=== PATIENT | female | born 1960 | race Caucasian/White ===

== ENCOUNTER → 2016-08-13 | Outpatient (CLI) | payer OTHER ==
[~2016-08-13] MED LIST: ALBU1AER9 INH; ATOR-26 PO; BACL1TAB PO; BUPR150T5 PO; CHOL100027 PO; CLOP1TAB15 PO; COEN100C15 PO; CYAN10005 PO; DICL1GEL12 TOP; DULO60CA44 PO; FERR325T18 PO; FLVHFA110 INH; FLVHFA44 INH; GABA1CAP5 PO; HYDR-5688 PO; MELATAB2 PO; MULT-506 PO; Meloxicam PO; NTRGSL/4 UT; OMEG10007 PO; PANT40TA PO; PLV75 PO; SUCR1TAB PO; TOPI200T20 PO; TRAZ100T29 PO; VERA120T15 PO; VLTG EXT; VNTHFA/IN INH; topamax PO
--- NOTE | 2016-08-13 16:18 | DIAGNOSTIC IMAGING REPORT ---
CHEST 2 VIEWS ROUTINE CLINICAL HISTORY: Cough, shortness of breath. COMPARISON STUDY: 04/30/2016 FINDINGS: There are postsurgical changes of midline sternotomy. The heart is normal in size. There is no failure. There are no pleural effusions. There is no focal pulmonary consolidation. There are postsurgical changes in lumbar spine. There is evidence for prior thoracic vertebroplasty. There is right shoulder calcific tendinitis.[ IMPRESSION: No active disease in the chest. Electronically signed by: Shahid Alford M.D. 08/13/2016 4:16 PM Dictated Date/Time: 08/13/2016 4:15 PM
== END | disposition home or self-care (01) ==
LOC: C.RAD1850 16:00
PROVIDERS: ATTEND Nurse Practitioner Family
DX: Z87.898 Personal history of other specified conditions (principal); R06.02 Shortness of breath; J20.9 Acute bronchitis, unspecified; R51 Headache; R53.83 Other fatigue

== ENCOUNTER 2016-10-21 17:01 | Observation (INO) | payer OTHER ==
[~2016-10-21] VITALS: Ht 160 cm; Wt 64.2 kg
[~2016-10-21 17:01] MED LIST changes: -CLOP1TAB15 PO; -DICL1GEL12 TOP; -FLVHFA44 INH; -Meloxicam PO; -PLV75 PO; -VERA120T15 PO; -VLTG EXT; -VNTHFA/IN INH; -topamax PO
[2016-10-21] MEDS ORDERED: ONDANSETRON INJ 2 MG/ML 2 ML VIAL IV STA (18:19)
[2016-10-21] MEDS ORDERED: FENTANYL CITRATE INJ 50 MCG/1 ML 2 ML VIAL IV STA (18:19)
[2016-10-21 18:47] LABS: BASO % 0.4 %; BASO ABS # 0.02 K/uL (0-0.2); COMPLETE YES; HEMATOCRIT 33.6 % (37-47); IG% 0.2 %; LYMPH % 33.9 %; LYMPH ABS # 1.86 K/uL (1.2-3.4); MEAN CELL VOLUME 94.6 fL (80-100); MEAN CORPUSCULAR HEMOGLOBIN 32.4 pg (25-34); MEAN CORPUSCULAR HGB CONC 34.2 g/dl (32-36); MEAN PLATELET VOLUME 9.8 fL (7.4-10.4); MONO % 9.7 %; NEUT % 53.8 %; PLATELET COUNT 158 K/uL (130-400); RED BLOOD COUNT 3.55 M/uL (4.2-5.4); WHITE BLOOD COUNT 5.49 K/uL (4.8-10.8)
--- NOTE | 2016-10-21 18:54 | DIAGNOSTIC IMAGING REPORT ---
CHEST ONE VIEW PORTABLE HISTORY: Right-sided chest pain. COMPARISON: Chest 08/13/2016. FINDINGS: Poststernotomy changes. The heart is normal in size. The lungs are clear. No pleural effusions. No pneumothorax. Vertebroplasty within the lower thoracic spine remains unchanged. IMPRESSION: No significant change compared to the prior study. No acute process. Electronically signed by: Piyush Toscano M.D. 10/21/2016 6:52 PM Dictated Date/Time: 10/21/2016 6:51 PM
[2016-10-21 18:56] LABS: PARTIAL THROMBOPLASTIN RATIO 0.9; PROTHROMBIN TIME (PATIENT) 10.3 SECONDS (9.0-12.0)
[2016-10-21 18:59] LABS: ALT/SGPT 21 U/L (12-78); BLOOD UREA NITROGEN 19 mg/dl (7-18); CALCIUM 8.5 mg/dl (8.5-10.1); CARBON DIOXIDE 22 mmol/L (21-32); CHLORIDE 113 mmol/L (98-107); GLUCOSE 90 mg/dl (70-99); POTASSIUM 3.6 mmol/L (3.5-5.1); SODIUM 145 mmol/L (136-145)
[2016-10-21 19:02] LABS: ALKALINE PHOSPHATASE 61 U/L (45-117); AST/SGOT 18 U/L (15-37)
--- NOTE | 2016-10-21 19:06 | DIAGNOSTIC IMAGING REPORT ---
ABDOMEN AND PELVIS CT WITHOUT CONTRAST CT DOSE: 727.58 mGy.cm HISTORY: right sided abdominal pain TECHNIQUE: Multiaxial CT images of the abdomen and pelvis were performed without the use of intravenous and oral contrast according to the standard department stone protocol. COMPARISON STUDY: Abdomen and pelvis CT 11/02/2012. FINDINGS: There are 2 punctate stones within the left kidney and a single punctate stone within the right kidney. No ureteral stones are hydronephrosis. A 7 mm hypodense lesion within the lower pole of the right kidney is incompletely characterized on this noncontrast study. Cholecystectomy. The unenhanced liver, pancreas, spleen, and glands are unremarkable. No retroperitoneal lymphadenopathy. Prior hysterectomy. Normal bladder. The lung bases are clear. Posterior decompression and fusion within the lower lumbar spine. Vertebroplasty at T11. Old, healed right-sided rib fractures. Suboptimal evaluation for bowel pathology due to the lack of intravenous and oral contrast. However, no definite bowel wall thickening or obstruction. Normal appendix. Moderate amount well-formed stool seen within the colon. IMPRESSION: 1. Bilateral nephrolithiasis. No hydronephrosis. 2. Moderate well-formed stool seen within the colon. 3. No definite bowel wall thickening or obstruction. 4. Normal appendix. 5. Prior cholecystectomy and hysterectomy. Electronically signed by: Piyush Toscano M.D. 10/21/2016 7:05 PM Dictated Date/Time: 10/21/2016 6:57 PM
[2016-10-21] MEDS ORDERED: VNTHFA/IN INH (19:22)
[2016-10-21] MEDS ORDERED: FLVHFA44 INH (19:22)
[2016-10-21] MEDS ORDERED: NITROGLYCERIN OINT 2% 1GM PACKET EXT ONE (20:00)
[2016-10-21] MEDS ORDERED: ACETAMINOPHEN 325 MG TAB PO PRN (20:45)
[2016-10-21] MEDS ORDERED: NITROGLYCERIN 0.4 MG SL PER TAB CHARGE SL PRN (20:45)
[2016-10-21] MEDS ORDERED: ALUMINUM/MAGNESIUM/SIMETH (MAALOX MAX) 30 ML UDC PO PRN (20:45)
[2016-10-21] MEDS ORDERED: POLYETHYLENE (MIRALAX) 17 GM PACK PO PRN (20:45)
[2016-10-21] MEDS ORDERED: ONDANSETRON INJ 2 MG/ML 2 ML VIAL IV PRN (20:45)
[2016-10-21] MEDS ORDERED: NITROGLYCERIN 0.4 MG SL PER TAB CHARGE UT PRN (20:45)
[2016-10-21] MEDS ORDERED: ALBUTEROL HFA 8 GM INHALER INH PRN (20:45)
[2016-10-21] MEDS ORDERED: MAGNESIUM HYDROXIDE SUSP 30 ML UDC PO PRN (20:45)
[2016-10-21] MEDS ORDERED: BACLOFEN 10 MG TAB PO SCH (21:00)
[2016-10-21] MEDS ORDERED: TRAZODONE HCL 100 MG TAB PO SCH (21:00)
[2016-10-21] MEDS ORDERED: ATORVASTATIN 40 MG TAB PO SCH (21:00)
[2016-10-21] MEDS ORDERED: IV FLUIDS COMPLETED PRN (21:15)
[2016-10-21 21:22] VITALS: BP 105/67; PULSE 56; TEMP 36.9; Ht 160 cm; Wt 64.2 kg
--- NOTE | 2016-10-21 21:29 | History and Physical ---
History & Physical Date & Time of Service: Oct 21, 2016 at 21:04 Chief Complaint: Heart Attack, Bllod Clot Etc Primary Care Physician: Julio César Diop M.D. History of Present Illness Source: patient 56 y/o F w/long standing history of CAD, HTN, HPL - Presents with R chest and arm pain worse with movement. She denies significant SOB, N/V, diaphoresis. Although her symptoms are atypical, she states that they are identical to the symptoms she has had with previous MIs. She had an EGD recently due to anemia which showed gastric ulcers which were not actively bleeding. She was taken off ASA and has continued Plavix. Past Medical/Surgical History Medical Problems: (1) Cauda equina syndrome Status: Chronic (2) Chronic pain syndrome Status: Chronic (3) Coronary artery disease Pt had an IL 03/2010 - single stent was placed - She underwent a 3 V CABG 2010 and then had an additional IL 2 weeks following due to a failed vein graft (4) Hyperlipidemia Status: Chronic (5) Hypertensive disorder, systemic arterial Status: Chronic (6) Migraine Status: Chronic Surgical history 1) CABG 3 V 08/2010 2) Back surgery x 6 Family History FH: HTN (hypertension) FH: diabetes mellitus Heart disease Social History Smoking Status: Former Smoker Drug Use: none Marital Status: single, Housing status: lives with family Occupational Status: disabled Immunizations History of Influenza Vaccine: Yes Influenza Vaccine Date: May 11, 2012 History of Tetanus Vaccine?: Yes Tetanus Immunization Date: Sep 24, 2008 History of Pneumococcal: Yes Pneumococcal Date: May 11, 2010 History of Hepatitis B Vaccine: No Multi-Drug Resistant Organisms History of MDRO: No Allergies Coded Allergies: Nitrofurantoin (Verified Allergy, Intermediate, HIVES, 10/21/16) Senna (Verified Allergy, Intermediate, HIVES from X-Prep, TAKES SENOKOT AT HOME, 10/21/16) Iodinated Diagnostic Agents (Verified Allergy, Mild, RASH, 10/21/16) Beta Adrenergic Blockers (Verified Adverse Reaction, Intermediate, HYPOTENSION, 10/21/16) Rizatriptan (Verified Adverse Reaction, Intermediate, NAUSEA AND VOMITING , 10/21/16) Zolpidem (Verified Adverse Reaction, Intermediate, NIGHTMARES, 10/21/16) Sumatriptan (Verified Adverse Reaction, Mild, WORSENED HEADACHE, 10/21/16) Home Medications Scheduled Atorvastatin (Lipitor), 80 MG PO HS Baclofen (Lioresal), 10 MG PO HS Bupropion Hcl (Bupropion Hcl Xl), 200 MG PO QAM Cholecalciferol (Vitamin D 1000 Unit), 1,000 INTER.UNIT PO BID Coenzyme Q10 (Ubidecarenone) (Co Q10), 200 MG PO DAILY Cyanocobalamin (Vitamin B-12), 1,000 MCG PO DAILY Duloxetine Hcl (Cymbalta), 90 MG PO QAM Fish Oil ([place]-3), 1,000 MG PO BID Fluticasone Propionate (Flovent Hfa), 2 PUFFS INH BID Gabapentin (Neurontin), 400 MG PO DAILY Melatonin (Melatonin Maximum Strengt), 10 MG PO HS Multivitamin (Multivitamin), 1 TAB PO DAILY Nitroglycerin (Nitrostat), 0.4 MG UT PRN Pantoprazole (Protonix), 40 MG PO BID Topiramate (Topamax), 200 MG PO BID Trazodone Hcl (Trazodone), 100 MG PO HS Scheduled PRN Albuterol Hfa (Ventolin Hfa), 2-4 PUFFS INH Q6H PRN for SOB/Wheezing Review of Systems Constitutional: No fever, No sweats Eyes: No eye pain, No worsening of vision ENT: No hearing loss, No nasal symptoms, No unusual epistaxis Respiratory: No cough, No sputum, No wheezing Cardiovascular: + chest pain, + problem reported (R sided - radiating to R arm as above), No PND, No orthopnea Abdomen: No nausea, No pain, No vomiting Musculoskeletal: + muscle pain, No joint pain (pain in chect wall and R arm) Genitourinary - Female: No dysuria, No urinary frequency, No urinary urgency Neurologic: No memory loss, No paralysis, No weakness Psychiatric: No depression symptoms Endocrine: No fatigue Hematologic / Lymphatic: No abnormal bleeding/bruising Integumentary: No rash Allergic / Immunologic: No environmental allergies Physical Exam Vital Signs Date Time Temp Pulse Resp B/P Pulse Ox O2 Delivery O2 Flow Rate FiO2 10/21/16 18:28 59 10/21/16 18:24 98 Room Air 10/21/16 17:06 37.3 73 18 109/49 98 Room Air General Appearance: WD/WN, no apparent distress Head: normocephalic, atraumatic Eyes: normal inspection, PERRL, EOMI ENT: normal ENT inspection Neck: supple, no adenopathy, thyroid normal, no JVD Respiratory/Chest: chest non-tender, lungs clear, normal breath sounds Cardiovascular: regular rate, rhythm, no edema, no gallop, no JVD, no murmur, normal peripheral pulses Abdomen/GI: normal bowel sounds, non tender, soft Extremities/Musculoskelatal: normal inspection, no calf tenderness, normal capillary refill, no pedal edema, normal range of motion Neurologic/Psych: senior estimator II-XII nml as tested, no motor/sensory deficits, alert, normal mood/affect, normal reflexes, oriented x 3 Skin: normal color, warm/dry, no rash Diagnostics Laboratory Results Results Past 24 Hours Test 10/21/16 18:25 10/21/16 18:32 Range/Units White Blood Count 5.49 4.8-10.8 K/uL Red Blood Count 3.55 4.2-5.4 M/uL Hemoglobin 11.5 12.0-16.0 g/dL Hematocrit 33.6 37-47 % Mean Corpuscular Volume 94.6 80-100 fL Mean Corpuscular Hemoglobin 32.4 25-34 pg Mean Corpuscular Hemoglobin Concent 34.2 32-36 g/dl Platelet Count 158 130-400 K/uL Mean Platelet Volume 9.8 7.4-10.4 fL Neutrophils (%) (Auto) 53.8 % Lymphocytes (%) (Auto) 33.9 % Monocytes (%) (Auto) 9.7 % Eosinophils (%) (Auto) 2.0 % Basophils (%) (Auto) 0.4 % Neutrophils # (Auto) 2.96 1.4-6.5 K/uL Lymphocytes # (Auto) 1.86 1.2-3.4 K/uL Monocytes # (Auto) 0.53 0.11-0.59 K/uL Eosinophils # (Auto) 0.11 0-0.5 K/uL Basophils # (Auto) 0.02 0-0.2 K/uL RDW Standard Deviation 44.4 36.4-46.3 fL RDW Coefficient of Variation 12.8 11.5-14.5 % Immature Granulocyte % (Auto) 0.2 % Immature Granulocyte # (Auto) 0.01 0.00-0.02 K/uL Prothrombin Time 10.3 9.0-12.0 SECONDS Prothromb Time International Ratio 1.0 0.9-1.1 Activated Partial Thromboplast Time 23.4 21.0-31.0 SECONDS Partial Thromboplastin Ratio 0.9 Sodium Level 145 136-145 mmol/L Potassium Level 3.6 3.5-5.1 mmol/L Chloride Level 113 98-107 mmol/L Carbon Dioxide Level 22 21-32 mmol/L Anion Gap 10.0 3-11 mmol/L Blood Urea Nitrogen 19 7-18 mg/dl Creatinine 1.20 0.60-1.20 mg/dl Est Creatinine Clear Calc Drug Dose 47.2 ml/min Estimated GFR () 58.5 Estimated GFR (Non- 50.5 BUN/Creatinine Ratio 16.0 10-20 Random Glucose 90 70-99 mg/dl Calcium Level 8.5 8.5-10.1 mg/dl Total Bilirubin 0.3 0.2-1 mg/dl Direct Bilirubin < 0.1 0-0.2 mg/dl Aspartate Amino Transf (AST/SGOT) 18 15-37 U/L Alanine Aminotransferase (ALT/SGPT) 21 12-78 U/L Alkaline Phosphatase 61 45-117 U/L Total Protein 6.2 6.4-8.2 gm/dl Albumin 3.4 3.4-5.0 gm/dl Lipase 152 73-393 U/L Bedside Troponin I 0.000 0-0.045 ng/ml EKG Sinus - R bundle - no acute ischemic changes - no acute change from previous Impression Assessment and Plan 56 y/o F w/long standing history of CAD, HTN, HPL - Presents with R chest and arm pain worse with movement. She denies significant SOB, N/V, diaphoresis. Although her symptoms are atypical, she states that they are identical to the symptoms she has had with previous MIs. She had an EGD recently due to anemia which showed gastric ulcers which were not actively bleeding. She was taken off ASA and has continued Plavix. 1) CP - initial workup is negative - considering risk factors she will be assigned to observation on the telemetry unit - we will obtain serial enzymes - cont Plavix, Lipitor and NTG PRN - as a GI source is in the differential for her chest/arm pain we will hold off on additional anticoagulation unless there is an upward trend in her troponin 2) Gastric ulcers - Hb is stable - Cont PPi 3) HPL - Atorvastatin Full code - SCD prophylaxis Total time for this admit including review of labs, meds, EKG, previous records - discussion with ER MD sharon pt - 36 min Level of Care Telemetry Resuscitation Status FULL RESUSCITATION VTE Prophylaxis VTE Risk Assessment Done? Y/N: Yes Risk Level: Moderate Given or contraindicated: SCD's
[2016-10-21] MEDS ORDERED: HEPARIN SOD 5000 UNIT/0.5 ML CARP SQ SCH (22:00)
[2016-10-21 22:29] VITALS: BP 105/67; PULSE 56; TEMP 36.9; O2SAT 96
[2016-10-21] MEDS: FLUTICASONE PROP HFA INH 44 MCG INHALER INH SCH (22:31)
[2016-10-21] MEDS: OMEGA-3 (PURIFIED FISH OIL) 1 GM CAP PO SCH (22:33)
[2016-10-21] MEDS: PANTOprazole SOD 40 MG TAB PO SCH (22:33)
[2016-10-21] MEDS: CHOLECALCIFEROL 1000 INTER.UNIT TAB PO SCH (22:34)
[2016-10-21] MEDS: TOPIRAMATE 100 MG TAB PO SCH (22:34)
[2016-10-21] MEDS: MoRPHine SULFATE 2 MG/ML CARP IV PRN ×2 (22:42→23:24)
[2016-10-21 23:31] VITALS: BP 97/54; PULSE 54; TEMP 36.4; O2SAT 96
[2016-10-22] VITALS (12 sets, daily range): BP systolic 77–152; BP diastolic 35–76; PULSE 52–66; TEMP 36.6–36.8; O2SAT 93–98
--- NOTE | 2016-10-22 00:39 | EMERGENCY ROOM VISIT NOTE ---
History Report prepared by Maisha: Anita Renee Under the Supervision of: Dr. Ghassan Solorio M.D. First contact with patient: 18:03 Chief Complaint: CARDIAC ASSESSMENT Stated Complaint: HEART ATTACK, BLLOD CLOT ETC Nursing Triage Summary: Pt presents stating, "I thought maybe I have pneumonia. My right lung hurts into my breast and arm. When I called to go to the dr, they said to come here because I am sob. I had bypass and two heart attacks and my pain has always been on the right side." Cough. Sx x 1 week. History of Present Illness The patient is a 56 year old female who presents to the Emergency Room for a cardiac assessment. The patient has been having intermittent pain in the right side of her chest that radiates into her right ribs, right arm, and the right side of her back. This has been going on for the past week. She states that today's pain started about 2 hours ago. She has not taken any medications for her symptoms. The patient rates her current pain as a 6/10 in severity and notes that movement exacerbates her pain. She also reports nausea, shortness of breath, cough, diffuse right-sided abdominal pain, and constipation. She denies any recent falls or injury to her ribs. She was not doing any heavy lifting or exercises to injure the area. The patient called her PCP's office today to make an appointment for evaluation of her symptoms. Instead, she was advised to come to the ED for further evaluation. The patient denies fevers, vomiting, diarrhea , and pain or swelling in her legs. She denies any personal history of PE. She no longer has her gallbladder but still has her appendix. She has a history of 2 FL's and quadruple bypass surgery. She states, "I didn't take any nitro because I didn't think this was my heart. I thought I had pneumonia." She reports that she quit smoking 10 days ago. Source of History: patient Onset: 1 week ago Position: chest (right) Symptom Intensity: 6/10 Quality: other (radiating) Timing: intermittent Modifying Factors (Worsening): movement Associated Symptoms: + SOB, + abdominal pain, + back pain, + cough, + nausea , No diarrhea, No fevers, No vomiting Note: Pt notes right arm pain and right rib pain. Pt notes constipation. Review of Systems See HPI for pertinent positives & negatives. A total of 10 systems reviewed and were otherwise negative. Past Medical & Surgical Medical Problems: (1) Cauda equina syndrome (2) Chronic pain syndrome (3) COPD (chronic obstructive pulmonary disease) (4) Coronary artery disease (5) Diabetes mellitus type 2 (6) Hyperlipidemia (7) Hypertensive disorder, systemic arterial (8) Migraine (9) Symptomatic anemia (10) Symptomatic anemia Family History FH: HTN (hypertension) FH: diabetes mellitus Heart disease Social History Smoking Status: Former Smoker Alcohol Use: none Drug Use: none Marital Status: single, Housing Status: lives alone Occupation Status: disabled Current/Historical Medications Scheduled Atorvastatin (Lipitor), 80 MG PO HS Baclofen (Lioresal), 10 MG PO HS Bupropion Hcl (Bupropion Hcl Xl), 200 MG PO QAM Cholecalciferol (Vitamin D 1000 Unit), 1,000 INTER.UNIT PO BID Coenzyme Q10 (Ubidecarenone) (Co Q10), 200 MG PO DAILY Cyanocobalamin (Vitamin B-12), 1,000 MCG PO DAILY Duloxetine Hcl (Cymbalta), 90 MG PO QAM Fish Oil ([place]-3), 1,000 MG PO BID Fluticasone Propionate (Flovent Hfa), 2 PUFFS INH BID Gabapentin (Neurontin), 400 MG PO DAILY Melatonin (Melatonin Maximum Strengt), 10 MG PO HS Multivitamin (Multivitamin), 1 TAB PO DAILY Nitroglycerin (Nitrostat), 0.4 MG UT PRN Pantoprazole (Protonix), 40 MG PO BID Topiramate (Topamax), 200 MG PO BID Trazodone Hcl (Trazodone), 100 MG PO HS Scheduled PRN Albuterol Hfa (Ventolin Hfa), 2-4 PUFFS INH Q6H PRN for SOB/Wheezing Allergies Coded Allergies: Nitrofurantoin (Verified Allergy, Intermediate, HIVES, 10/21/16) Senna (Verified Allergy, Intermediate, HIVES from X-Prep, TAKES SENOKOT AT HOME, 10/21/16) Iodinated Diagnostic Agents (Verified Allergy, Mild, RASH, 10/21/16) Beta Adrenergic Blockers (Verified Adverse Reaction, Intermediate, HYPOTENSION, 10/21/16) Rizatriptan (Verified Adverse Reaction, Intermediate, NAUSEA AND VOMITING , 10/21/16) Zolpidem (Verified Adverse Reaction, Intermediate, NIGHTMARES, 10/21/16) Sumatriptan (Verified Adverse Reaction, Mild, WORSENED HEADACHE, 10/21/16) Physical Exam Vital Signs Date Time Temp Pulse Resp B/P Pulse Ox O2 Delivery O2 Flow Rate FiO2 10/21/16 18:28 59 10/21/16 18:24 98 Room Air 10/21/16 17:06 37.3 73 18 109/49 98 Room Air Physical Exam Constitutional: Vital signs reviewed. Eyes: Pupils are equal round reactive to light. Conjunctiva are noninjected. ENT: Pharynx is clear without erythema or exudate. Mucous membranes are moist. Neck supple without meningeal signs. Respiratory: Clear to auscultation bilaterally. Breath sounds are equal bilaterally. Cardiovascular: Regular rate and rhythm. No rubs or gallops. GI: Soft, nondistended. Tenderness throughout the right abdomen without guarding. Bowel sounds are present. Musculoskeletal: Tenderness to the right posterior upper ribs. No peripheral edema. No lower extremity tenderness. Integumentary: No cyanosis. Neurological: The patient is awake and alert. No focal deficits. Psychiatric: Normal affect. Medical Decision & Procedures ER Provider Diagnostic Interpretation: Radiology results as stated below per my review and the radiologist's interpretation: CHEST ONE VIEW PORTABLE HISTORY: Right-sided chest pain. COMPARISON: Chest 08/13/2016. FINDINGS: Poststernotomy changes. The heart is normal in size. The lungs are clear. No pleural effusions. No pneumothorax. Vertebroplasty within the lower thoracic spine remains unchanged. IMPRESSION: No significant change compared to the prior study. No acute process. Electronically signed by: Piyush Toscano M.D. 10/21/2016 6:52 PM Dictated Date/Time: 10/21/2016 6:51 PM ABDOMEN AND PELVIS CT WITHOUT CONTRAST CT DOSE: 727.58 mGy.cm HISTORY: right sided abdominal pain TECHNIQUE: Multiaxial CT images of the abdomen and pelvis were performed without the use of intravenous and oral contrast according to the standard department stone protocol. COMPARISON STUDY: Abdomen and pelvis CT 11/02/2012. FINDINGS: There are 2 punctate stones within the left kidney and a single punctate stone within the right kidney. No ureteral stones are hydronephrosis. A 7 mm hypodense lesion within the lower pole of the right kidney is incompletely characterized on this noncontrast study. Cholecystectomy. The unenhanced liver, pancreas, spleen, and glands are unremarkable. No retroperitoneal lymphadenopathy. Prior hysterectomy. Normal bladder. The lung bases are clear. Posterior decompression and fusion within the lower lumbar spine. Vertebroplasty at T11. Old, healed right-sided rib fractures. Suboptimal evaluation for bowel pathology due to the lack of intravenous and oral contrast. However, no definite bowel wall thickening or obstruction. Normal appendix. Moderate amount well-formed stool seen within the colon. IMPRESSION: 1. Bilateral nephrolithiasis. No hydronephrosis. 2. Moderate well-formed stool seen within the colon. 3. No definite bowel wall thickening or obstruction. 4. Normal appendix. 5. Prior cholecystectomy and hysterectomy. Electronically signed by: Piyush Toscano M.D. 10/21/2016 7:05 PM Dictated Date/Time: 10/21/2016 6:57 PM Laboratory Results 10/21/16 18:25 Red Blood Count 3.55, Mean Corpuscular Volume 94.6, Mean Corpuscular Hemoglobin 32.4, Mean Corpuscular Hemoglobin Concent 34.2, Mean Platelet Volume 9.8, Neutrophils (%) (Auto) 53.8, Lymphocytes (%) (Auto) 33.9, Monocytes (%) (Auto) 9.7, Eosinophils (%) (Auto) 2.0, Basophils (%) (Auto) 0.4, Neutrophils # (Auto) 2.96, Lymphocytes # (Auto) 1.86, Monocytes # (Auto) 0.53, Eosinophils # (Auto) 0.11, Basophils # (Auto) 0.02 10/21/16 18:25 Test 10/21/16 18:25 10/21/16 18:32 White Blood Count 5.49 K/uL (4.8-10.8) Red Blood Count 3.55 M/uL (4.2-5.4) Hemoglobin 11.5 g/dL (12.0-16.0) Hematocrit 33.6 % (37-47) Mean Corpuscular Volume 94.6 fL (80-100) Mean Corpuscular Hemoglobin 32.4 pg (25-34) Mean Corpuscular Hemoglobin Concent 34.2 g/dl (32-36) Platelet Count 158 K/uL (130-400) Mean Platelet Volume 9.8 fL (7.4-10.4) Neutrophils (%) (Auto) 53.8 % Lymphocytes (%) (Auto) 33.9 % Monocytes (%) (Auto) 9.7 % Eosinophils (%) (Auto) 2.0 % Basophils (%) (Auto) 0.4 % Neutrophils # (Auto) 2.96 K/uL (1.4-6.5) Lymphocytes # (Auto) 1.86 K/uL (1.2-3.4) Monocytes # (Auto) 0.53 K/uL (0.11-0.59) Eosinophils # (Auto) 0.11 K/uL (0-0.5) Basophils # (Auto) 0.02 K/uL (0-0.2) RDW Standard Deviation 44.4 fL (36.4-46.3) RDW Coefficient of Variation 12.8 % (11.5-14.5) Immature Granulocyte % (Auto) 0.2 % Immature Granulocyte # (Auto) 0.01 K/uL (0.00-0.02) Prothrombin Time 10.3 SECONDS (9.0-12.0) Prothromb Time International Ratio 1.0 (0.9-1.1) Activated Partial Thromboplast Time 23.4 SECONDS (21.0-31.0) Partial Thromboplastin Ratio 0.9 Anion Gap 10.0 mmol/L (3-11) Est Creatinine Clear Calc Drug Dose 47.2 ml/min Estimated GFR () 58.5 Estimated GFR (Non- 50.5 BUN/Creatinine Ratio 16.0 (10-20) Calcium Level 8.5 mg/dl (8.5-10.1) Total Bilirubin 0.3 mg/dl (0.2-1) Direct Bilirubin < 0.1 mg/dl (0-0.2) Aspartate Amino Transf (AST/SGOT) 18 U/L (15-37) Alanine Aminotransferase (ALT/SGPT) 21 U/L (12-78) Alkaline Phosphatase 61 U/L (45-117) Total Protein 6.2 gm/dl (6.4-8.2) Albumin 3.4 gm/dl (3.4-5.0) Lipase 152 U/L (73-393) Hepatitis C Antibody Screen NEG (NEG) Bedside Troponin I 0.000 ng/ml (0-0.045) Laboratory results as reviewed by me. Medications Administered Medications (Trade) Dose Ordered Sig/Shelley Route Start Time Stop Time Status Last Admin Dose Admin Fentanyl Citrate (Fentanyl Inj) 50 mcg NOW STAT IV 10/21/16 18:19 10/21/16 18:23 DC 10/21/16 18:39 50 MCG Ondansetron HCl (Zofran Inj) 4 mg NOW STAT IV 10/21/16 18:19 10/21/16 18:23 DC 10/21/16 18:38 4 MG Nitroglycerin (Nitroglycerin 2% Oint) 1 inch NOW ONCE EXT 10/21/16 20:00 10/21/16 20:01 DC 10/21/16 20:36 1 INCH ECG Indication: chest pain Rate (beats per minute): 65 Rhythm: normal sinus Findings: RBBB (incomplete), ST depression (in leads V2-V4 and inferiorly) Comparison ECG Date: 04/30/2016 Change: no significant change ED Course 1802: The patient was evaluated in room A4B. A complete history and physical exam was performed. 1818: Zofran 4 mg IV, Fentanyl Citrate 50 mcg IV 1956: I reassessed the patient at this time. Her chest pain has improved but it is still there. If feels somewhat similar to when she had her heart problems in the past. I discussed the results and treatment plan with the patient. I answered all pertaining questions that she had. She expressed understanding and verbalized agreement. 1999: Nitroglycerin 1 inch EXT 2001: I spoke with Dr. Moran. We discussed the patient's results and treatment plan. The patient will be evaluated by the [facility] for further management. Medical Decision This is a 56-year-old female who presents with chest pain and abdominal pain. Differential diagnosis includes unstable angina, FL, pneumonia, pleurisy, appendicitis, bowel obstruction. I did perform a limited focused review of portions of the patient's old chart on the electronic medical record. The patient has had no recent pertinent visits to this hospital. I did evaluate the patient as noted above. The patient is presenting with intermittent chest pain. She states it feels similar to when she had her prior cardiac events. She also has abdominal tenderness to palpation. IV access was established. The patient was placed on a continuous ekg monitor tech. I did treat the patient with IV fentanyl and Zofran. I did order and personally review the patient's 12-lead EKG and chest x-ray as described above. She has nonspecific changes on her twelve-lead EKG which were present on her previous EKG. I did order and review the patient's blood work as noted in the electronic medical record. Her troponin is negative. I did order a CT of the abdomen and pelvis. I did review the images myself as well as the radiology report as described above. There is no evidence of acute process in her abdomen. I did reassess patient. She states she is feeling much better but still has some slight chest pain. I did discuss the test results with her. I did recommend hospitalization for further care and evaluation. I did discuss case with the hospitalist and embedded case manager. She was given Nitropaste. Consults Time Called: 1999 Consulting Physician: Dr. Moran Returned Call: [address] Moran. We discussed the patient's results and treatment plan. The patient will be evaluated by the [facility] for further management. Impression Primary Impression: Right-sided chest pain Additional Impression: Right sided abdominal pain Scribe Attestation The scribe's documentation has been prepared under my direct and personally reviewed by me in its entirety. I confirm that the note above accurately reflects all work, treatment, procedures, and medical decision making performed by me. Departure Information Dispostion Being Evaluated By Hospitalist Julio César Chowdhury M.D. (PCP) Patient Instructions My [facility] Problem Qualifiers
[2016-10-22] MEDS ORDERED: NURSING VERBAL MED ORDER ONE (04:45)
[2016-10-22] MEDS ORDERED: SODIUM CHLORIDE 0.9% 500 ML BAG IV SCH (05:00)
[2016-10-22] MEDS: CHOLECALCIFEROL 1000 INTER.UNIT TAB PO SCH (08:06)
[2016-10-22] MEDS: PANTOprazole SOD 40 MG TAB PO SCH (08:06)
[2016-10-22] MEDS: TOPIRAMATE 100 MG TAB PO SCH (08:07)
[2016-10-22] MEDS: OMEGA-3 (PURIFIED FISH OIL) 1 GM CAP PO SCH (08:07)
[2016-10-22] MEDS: FLUTICASONE PROP HFA INH 44 MCG INHALER INH SCH (08:09)
[2016-10-22] MEDS ORDERED: GABAPENTIN 400 MG CAP PO SCH (09:00)
[2016-10-22] MEDS ORDERED: DULOXETINE (CYMBALTA) 30 MG CAP PO SCH (09:00)
[2016-10-22] MEDS ORDERED: BuPROPion XL 300 MG TABCR PO SCH (09:00)
[2016-10-22] MEDS ORDERED: CLOPIDOGREL BISULFATE 75 MG TAB PO SCH (09:00)
[2016-10-22] MEDS ORDERED: CYANOCOBALAMIN 500 MCG TAB (VIT B-12) PO SCH (09:00)
[2016-10-22] MEDS ORDERED: ACETAMINOPHEN IV 100 ML IV ONE (09:58)
[2016-10-22] MEDS ORDERED: SODIUM CHLORIDE 0.9% 1000ML 1,000 ML IV SCH (10:00)
[2016-10-22] MEDS ORDERED: KETOROLAC TROMETHAMINE 15 MG/ML VIAL IM PRN (12:00)
[2016-10-22] MEDS ORDERED: KETOROLAC TROMETHAMINE 15 MG/ML VIAL IV PRN (12:30)
[2016-10-22] MEDS ORDERED: BENZOCAINE/TETRACAIN/BUTAM CAN 200 APPLN/20 GM CAN EXT PRN (15:15)
[2016-10-22] MEDS ORDERED: FAMOTIDINE IV INJ 20 MG in DEXTROSE 5% 100ML 100 ML IV ONE (15:30)
[2016-10-22] MEDS ORDERED: LIDOCAINE HCL 1% 20 ML VIAL INFIL ONE (15:45)
[2016-10-22] MEDS ORDERED: BUPIVACAINE 0.25% 30 ML VIAL INFIL ONE (15:45)
[2016-10-22] MEDS ORDERED: TRIAMCINOLONE ACET 40 MG/ML VIAL IM ONE (15:45)
[2016-10-22] MEDS: MoRPHine SULFATE 2 MG/ML CARP IV PRN (16:15)
--- NOTE | 2016-10-22 17:13 | Discharge Instructions ---
Discharge Instructions Date of Service Oct 22, 2016. (Mer Gordon PA-C) Admission Reason for Admission: Chest Pain, Copd (Mer Gordon PA-C) Discharge Discharge Diagnosis / Problem: Musculoskeletal Pain - Rotator Cuff Tendonitis (Mer Gordon PA-C) Discharge Goals Goal(s): Decrease discomfort, Improve function, Increase independence (Mer Gordon PA-C) Activity Recommendations Activity Limitations: as noted below Lifting Limitations: gradually increase as tolerated Exercise/Sports Limitations: as tolerated May Resume Sexual Activity: when tolerated Shower/Bathe: no limitations . (Mer Gordon PA-C) Instructions / Follow-Up Instructions / Follow-Up Right Shoulder and Right Chest Pain: - The pain you're experiencing is likely related to the calcium deposits in that right shoulder. This pain does not seem to appear to be cardiac in nature. - We ran cardiac enzymes which were negative for a cardiac event. As well as her EKG did not show acute changes. - Your blood pressure has markedly improved. It appears that the Nitropaste may have caused her blood pressure to drop. - Your chest x-ray does not show any signs of pneumonia. Evidence of calcium deposits in the right shoulder are visualized. (Mer Gordon PA-C) Instructions / Follow-Up From Dr. Ghosh - You had evidence of right shoulder bursitis on examination. Your x-rays of your right shoulder from the fall of 2015 showed chronic tendonitis of the shoulder. You received a steroid injection in the right shoulder bursa for suspected bursitis. The numbing medication will continue to keep your shoulder comfortable until about midnight tonight. Following that time your pain may return. However, the steroid will become effective into tomorrow evening and Tuesday, hopefully providing long-lasting benefit. While awaiting for the injection to take full effect you may use voltaren gel 4 grams every 6 hours as needed for pain. Sample provided at time of discharge. I would also recommend NO heavy lifting with the right arm -- NOTHING over 15 pounds -- for at least a week. Avoid excessive activity involving the right arm as well or any activity that makes it feel worse. Please ice the shoulder for 20-30 minutes at a time 3-4 times each day. This should also help with pain control. Please contact Dr. Catalan's office this week to schedule a follow-up appointment for your right shoulder issues. (Julio César Ghosh MD) Current Hospital Diet Patient's current hospital diet: AHA Diet (Heart Healthy), Diabetes Type 2 Diet (Mer Gordon PA-C) Discharge Diet Recommended Diet: AHA Diet (Heart Healthy) (Mer Gordon PA-C) Pending Studies Studies pending at discharge: no (Mer Gorodn PA-C) Studies pending at discharge: no (Julio César Ghosh MD) Medical Emergencies . Who to Call and When: Medical Emergencies: If at any time you feel your situation is an emergency, please call 911 immediately. . (Mer Gordon PA-C) Non-Emergent Contact Non-Emergency issues call your: Primary Care Provider Call Non-Emergent contact if: you have a fever, your pain is not controlled, you have any medication questions . (Mer Gordon PA-C) . "Provider Documentation" section prepared by Mer Gordon. (Mer Gordon PA-C) VTE Core Measure Inpt VTE Proph given/why not?: SCD's (Mer Gordon PA-C)
[2016-10-22] MEDS ORDERED: DICLOFENAC SOD 1% GEL 100 GM TUBE EXT SCH (19:00)
[2016-10-22] MEDS ORDERED: VLTG EXT (19:20)
[2016-10-22] MEDS ORDERED: PLV75 PO (19:20)
--- NOTE | 2016-10-22 20:17 | Procedure Note ---
Procedure Note Procedure Date Oct 22, 2016. Procedure Description Procedure Name: right shoulder subacromial bursal injection Procedure time out: side/site verified, patient ID confirmed, correct procedure Consent obtained: written Time of procedure: 18:25 Performed by: attending Indications: therapeutic Contraindications: none Description: After written consent was obtained, identification of the right shoulder landmarks, betadine preparation, and use of topical cetacaine spray for local analgesia, a 5cc mix of 40mg of kenalog/2cc of marcaine/2cc of 1% lidocaine was injected without complication into the right subacromial bursa. No blood loss. Patient tolerated procedure well. She experienced immediate relief of pain following the injection. Complications: none Patient tolerated procedure: well Post-procedure vital signs: reviewed and stable Comments: Julio César Ghosh MD
--- NOTE | 2016-10-22 20:34 | Discharge Summary ---
Discharge Summary Date of Service Oct 22, 2016. Discharge Summary Admission Date: Oct 21, 2016 at 20:44 Discharge Date: Oct 22, 2016 Discharge Disposition: Home Principal Diagnosis: right shoulder pain 2nd to bursitis/tendonitis Problems/Secondary Diagnoses: 1. constipation 2. CAD s/p CABG 3. chronic pain syndrome 4. h/o severe iron deficiency anemia 5. HTN 6. hyperlipidemia 7. h/o acute [place] 8. kidney stones Immunizations: Have You Had Influenza Vaccine: Yes Influenza Vaccine Date: May 11, 2012 History of Tetanus Vaccine?: Yes Tetanus Immunization Date: Sep 24, 2008 History of Pneumococcal: Yes Pneumococcal Date: May 11, 2010 History of Hepatitis B Vaccine: No Procedures: 1. CT abd/pelvis: IMPRESSION: 1. Bilateral nephrolithiasis. No hydronephrosis. 2. Moderate well-formed stool seen within the colon. 3. No definite bowel wall thickening or obstruction. 4. Normal appendix. 5. Prior cholecystectomy and hysterectomy. 2. right shoulder subacromial bursal injection Medication Reconciliation New Medications: Clopidogrel Bisulfate (Clopidogrel) 75 Mg Tab 75 MG PO QAM, #30 TAB 0 Refills Diclofenac Sod (Voltaren) 100 Appln/100 Gm Gel 1 APPLN EXT QID, #1 0 Refills apply 4 grams to right shoulder every 6 hours as needed for pain Continued Medications: Albuterol Hfa (Ventolin Hfa) 200 Puffs/10461 Mcg Aers 2-4 PUFFS INH Q6H PRN for SOB/Wheezing, INHALER Atorvastatin (Lipitor) 80 Mg Tab 80 MG PO HS Baclofen (Lioresal) 10 Mg Tab 10 MG PO HS, TAB Bupropion Hcl (Bupropion Hcl Xl) 150 Mg Tab 200 MG PO QAM Cholecalciferol (Vitamin D 1000 Unit) 1,000 Unit Cap 1000 INTER.UNIT PO BID Coenzyme Q10 (Ubidecarenone) (Co Q10) 100 Mg Cap 200 MG PO DAILY Cyanocobalamin (Vitamin B-12) 1,000 Mcg Tab 1000 MCG PO DAILY Duloxetine Hcl (Cymbalta) 60 Mg Cap 90 MG PO QAM Fish Oil ([place]-3) 1 Ea Cap 1000 MG PO BID Fluticasone Propionate (Flovent Hfa) 120 Puffs/5280 Mcg Aero 2 PUFFS INH BID, INHALER Gabapentin (Neurontin) 400 Mg Cap 400 MG PO DAILY 1 QAM 2 HS Melatonin (Melatonin Maximum Strengt) 5 Mg Tab 10 MG PO HS Multivitamin (Multivitamin) Tab 1 TAB PO DAILY, TAB Nitroglycerin (Nitrostat) 0.4 Mg Tab 0.4 MG UT PRN, BTL Pantoprazole (Protonix) 40 Mg Tab 40 MG PO BID Topiramate (Topamax) 200 Mg Tab 200 MG PO BID Trazodone Hcl (Trazodone) 100 Mg Tab 100 MG PO HS, 0 Refills Referrals At Discharge Follow up Referrals: Orthopedics Referral - Please Call For Appointment with Hal Catalan, DO Discharge Exam Physical Exam: General Appearance: no apparent distress ENT: pharynx normal Neck: no JVD Respiratory/Chest: lungs clear, no respiratory distress, no accessory muscle use Cardiovascular: regular rate, rhythm, no gallop, no murmur, normal peripheral pulses Abdomen / GI: normal bowel sounds, soft, no organomegaly, + tenderness (mild , epigastric ) Extremities: no pedal edema, + pertinent finding (right shoulder - mild atrophy noted about the scapula; severe tenderness over the subacromial bursal area; +impingment signs with severe pain over the shoulder with abduction at 90 degree & external rotation. No bony deformity or gross swelling or redness. Following injection her tenderness was markedly improved. ) Neurologic/Psychiatric: alert, oriented x 3 Hospital Course HISTORY OF PRESENT ILLNESS: 56yo female with long standing history of CAD, hypertension, and chronic pain syndrome who presented with right-sided chest and arm pain worse with movement. She denied significant SOB, nausea, emesis, or diaphoresis. She had had constipation recently. HOSPITAL COURSE: During her brief stay telemetry remained normal, troponin x 3 were normal, sed rate/crp were normal, EKG showed no ischemic changes, and chest x-ray was normal with the exception of calcium within the right shoulder consistent with calcific tendonitis. Her right shoulder pain was felt to be the main reason for her presenting symptoms (rather than a cardiac cause) and was likely due to rotator cuff tendonitis/bursitis. Despite use of toradol her right shoulder pain persisted. She was offered a steroid injection into the right subacromial bursa as she had had injections 1-2 years ago and experienced relief at that time. She did in fact receive a right shoulder bursal injection without complication during this hospital stay. She was asked to use voltaren gel q6h prn, ice, and to follow-up with orthopedics Dr. Hal Catalan for the right shoulder issue. Lastly, her CT of the abdomen/pelvis demonstrated a significant amount of constipation. A bowel regimen was discussed with her prior to discharge. Total Time Spent: Greater than 30 minutes This includes examination of the patient, discharge planning, medication reconciliation, and communication with other providers. Discharge Instructions Please refer to the electronic Patient Visit Report (Discharge Instructions) for additional information. Follow-Up 1. see Dr. Julio César Diop within [address] Hal Catalan within 2-3 weeks Additional Copies To Julio César Diop M.D.; Hal Catalan, DO
--- NOTE | 2016-10-24 21:38 | Progress Note ---
Progress Note Date of Service Oct 24, 2016. Progress Note time - 2129 late entry for phone call placed to patient earlier this afternoon. I called patient to inform her that I had failed to mention that she had tiny kidney stones on her recent CT scan. She reported she has had numerous renal stones in the past. I discussed with her that use of topamax is contraindicated in the setting of kidney stones. I asked her to stop the topamax for now. She sees [facility] neurology for her chronic migraines. She plans to call Dr. Ordaz tomorrow to schedule f/u appt. She mentioned her right shoulder is feeling better s/p injection. however, she is having migraine issues. again encouraged her to call Dr. Ordaz's office tomorrow. Julio César Ghosh MD
[2016-11-25] MEDS ORDERED: CLOP1TAB15 PO (08:33)
[2016-11-25] MEDS ORDERED: DICL1GEL12 TOP (08:33)
[2017-04-08] MEDS ORDERED: topamax PO (09:00)
[2017-04-08] MEDS ORDERED: Meloxicam PO (09:00)
[2017-04-27] MEDS ORDERED: VERA120T15 PO (11:04)
== END 2016-10-22 20:19 | disposition home or self-care (01) ==
LOC: ENRESERVTM → ENRESERVDT → C.EDB 17:03 → C.MED 20:44
PROVIDERS: ADMIT Internal Medicine; ATTEND Internal Medicine
DX: R07.9 Chest pain, unspecified (principal); M75.51 Bursitis of right shoulder; R10.9 Unspecified abdominal pain; G89.4 Chronic pain syndrome; G83.4 Cauda equina syndrome; J44.9 Chronic obstructive pulmonary disease, unspecified; I25.10 Atherosclerotic heart disease of native coronary artery without angina pectoris; E11.9 Type 2 diabetes mellitus without complications; K25.9 Gastric ulcer, unspecified as acute or chronic, without hemorrhage or perforation; I10 Essential (primary) hypertension; E78.5 Hyperlipidemia, unspecified; I25.2 Old myocardial infarction; Z91.041 Radiographic dye allergy status; Z87.891 Personal history of nicotine dependence; Z95.1 Presence of aortocoronary bypass graft; Z82.49 Family history of ischemic heart disease and other diseases of the circulatory system; Z83.3 Family history of diabetes mellitus

== ENCOUNTER → 2016-12-02 | Day surgery (SDC) | payer OTHER ==
[2016-11-25 08:35] VITALS: Ht 160.7 cm; Wt 64.1 kg
[~2016-12-02] VITALS: Ht 160.7 cm; Wt 64.1 kg
[~2016-12-02] MED LIST changes: -ALBU1AER9 INH; +CLOP1TAB15 PO; +DICL1GEL12 TOP; -FERR325T18 PO; -FLVHFA110 INH; +FLVHFA44 INH; -HYDR-5688 PO; +LIDOCAINE HCL 2% 2 ML VIAL (20MG/ML) ONE; +Meloxicam PO; +PROPOFOL IV EMULSION 10 MG/ML 20 ML VIAL IV ONE; +SODIUM CHLORIDE 0.9% 500ML 500 ML IV ONE; -SUCR1TAB PO; +VERA120T15 PO; +VNTHFA/IN INH; +VRPSR180 PO; +topamax PO
--- NOTE | 2016-12-02 15:58 | Endo History and Physical ---
History & Physical Date of Service: Dec 02, 2016. Chief Complaint: ABDOMINAL PAIN Referring Physician: DR. HANKINS History of Present Illness 56 yo CF who presents for EGD secondary to abdominal pain. Past Medical History Osteoporosis, Arthritis, Asthma, Anxiety, Reflux, Hypertension, COPD, Other, Depression, [place] Past Surgical History Hx Cardiac Surgery: Yes (HEART CATH AND STENT X1, CABG X4) Hx Internal Defibrillator: No Hx Pacemaker: No Hx Abdominal Surgery: Yes (TYE, ROSARIO BSO, , ECTOPIC ) Hx of Implantable Prosthesis: No Hx Post-Op Nausea and Vomiting: No Hx Cancer Surgery: No Hx Thoracic Surgery: No Hx Orthopedic: Yes (BACK SURGERY X6, RT KNEE SURGERY X2) Hx Urinary Tract Surgery: No Family History IBD Social History Smoking Status: Former Smoker Hx Substance Use: No Hx Alcohol Use: No Allergies Coded Allergies: Nitrofurantoin (Verified Allergy, Intermediate, HIVES, 12/02/16) Senna (Verified Allergy, Intermediate, HIVES from X-Prep, TAKES SENOKOT AT HOME, 12/02/16) Iodinated Diagnostic Agents (Verified Allergy, Mild, RASH, 12/02/16) Beta Adrenergic Blockers (Verified Adverse Reaction, Intermediate, HYPOTENSION, 12/02/16) Rizatriptan (Verified Adverse Reaction, Intermediate, NAUSEA AND VOMITING , 12/02/16) Zolpidem (Verified Adverse Reaction, Intermediate, NIGHTMARES, 12/02/16) Sumatriptan (Verified Adverse Reaction, Mild, WORSENED HEADACHE, 12/02/16) Current Medications Reported Home Medications Medications Dose Route/Sig Max Daily Dose Days Date Category Dose Instructions Voltaren 1% Top Gel (Diclofenac Sodium (Topical)) 1 % Gel 1 Dose TOP QID PRN 11/25/16 Reported Plavix (Clopidogrel Bisulfate) 75 Mg Tab 75 Mg PO QAM 11/25/16 Reported Ventolin Hfa (Albuterol) 200 Puffs/96222 Mcg Aers 2-4 Puffs INH Q6H PRN 10/21/16 Reported Flovent Hfa (Fluticasone Propionate) 120 Puffs/5280 Mcg Aero 2 Puffs INH BID 10/21/16 Reported Nitrostat (Nitroglycerin) 0.4 Mg Tab 0.4 Mg UT PRN 04/05/16 Reported Multivitamin (Multivitamins) Tab 1 Tab PO DAILY 03/25/16 Reported Topamax (Topiramate) 200 Mg Tab 200 Mg PO BID 05/14/15 Reported Cymbalta (Duloxetine Hcl) 60 Mg Cap 90 Mg PO QAM 05/14/15 Reported Melatonin Maximum Strengt (Melatonin) 5 Mg Tab 10 Mg PO HS 05/14/15 Reported Bupropion Hcl Xl (Bupropion Hcl) 150 Mg Tab 200 Mg PO QAM 05/14/15 Reported Neurontin (Gabapentin) 400 Mg Cap 400 Mg PO DAILY 10/22/14 Reported 1 QAM 2 HS Lioresal (Baclofen) 10 Mg Tab 10 Mg PO HS 03/24/12 Reported Co Q10 (Coenzyme Q10 (Ubidecarenone)) 100 Mg Cap 200 Mg PO HS 09/24/11 Reported Protonix (Pantoprazole Sodium) 40 Mg Tab 40 Mg PO BID 09/24/11 Reported Vitamin D 1000 Unit (Cholecalciferol) 1,000 Unit Cap 1,000 Inter.unit PO BID 09/24/11 Reported Trazodone (Trazodone HCl) 100 Mg Tab 100 Mg PO HS 09/24/11 Reported Lipitor (Atorvastatin Calcium) 80 Mg Tab 80 Mg PO HS 08/11/11 Reported Vitamin B-12 (Cyanocobalamin) 1,000 Mcg Tab 1,000 Mcg PO QAM 04/06/11 Reported [place]-3 (Fish Oil) 1 Ea Cap 1,000 Mg PO BID 11/24/09 Reported Vital Signs Weight (Kilograms): 64.09 Height (Feet): 5 Height (Inches): 3.25 Date Time Temp Pulse Resp B/P Pulse Ox O2 Delivery O2 Flow Rate FiO2 12/02/16 14:58 36.7 69 18 117/55 96 Room Air Physical Exam General Appearance: WD/WN, no apparent distress Respiratory/Chest: Auscultation: breath sounds normal Cardiovascular: Heart Auscultation: RRR Abdomen: Bowel Sounds: normal Inspection & Palpation: soft, non-distended, no tenderness, guarding & rebound Assessment and Plan Assessment: 56 yo CF who presents for EGD secondary to abdominal pain. Plan: Proceed with EGD.
--- NOTE | 2016-12-02 16:26 | Discharge Instructions ---
Endoscopy Patient Instructions Date / Procedure(s) Performed Dec 02, 2016. EGD Allergy Information Coded Allergies: Nitrofurantoin (Verified Allergy, Intermediate, HIVES, 12/02/16) Senna (Verified Allergy, Intermediate, HIVES from X-Prep, TAKES SENOKOT AT HOME, 12/02/16) Iodinated Diagnostic Agents (Verified Allergy, Mild, RASH, 12/02/16) Beta Adrenergic Blockers (Verified Adverse Reaction, Intermediate, HYPOTENSION, 12/02/16) Rizatriptan (Verified Adverse Reaction, Intermediate, NAUSEA AND VOMITING , 12/02/16) Zolpidem (Verified Adverse Reaction, Intermediate, NIGHTMARES, 12/02/16) Sumatriptan (Verified Adverse Reaction, Mild, WORSENED HEADACHE, 12/02/16) Discharge Date / Findings Dec 02, 2016. Gastritis s/p biopsies Hiatal hernia Medication Instructions Stopped Medication(s): PLAVIX-LAST DOSE 11/25/16 1) Start Carafate 1g by mouth four times daily prior to each meal and at bedtime. 2) OK to resume all medications today as prescribed. Reported Home Medications Medications Dose Route/Sig Max Daily Dose Days Date Category Dose Instructions Voltaren 1% Top Gel (Diclofenac Sodium (Topical)) 1 % Gel 1 Dose TOP QID PRN 11/25/16 Reported Plavix (Clopidogrel Bisulfate) 75 Mg Tab 75 Mg PO QAM 11/25/16 Reported Ventolin Hfa (Albuterol) 200 Puffs/40883 Mcg Aers 2-4 Puffs INH Q6H PRN 10/21/16 Reported Flovent Hfa (Fluticasone Propionate) 120 Puffs/5280 Mcg Aero 2 Puffs INH BID 10/21/16 Reported Nitrostat (Nitroglycerin) 0.4 Mg Tab 0.4 Mg UT PRN 04/05/16 Reported Multivitamin (Multivitamins) Tab 1 Tab PO DAILY 03/25/16 Reported Topamax (Topiramate) 200 Mg Tab 200 Mg PO BID 05/14/15 Reported Cymbalta (Duloxetine Hcl) 60 Mg Cap 90 Mg PO QAM 05/14/15 Reported Melatonin Maximum Strengt (Melatonin) 5 Mg Tab 10 Mg PO HS 05/14/15 Reported Bupropion Hcl Xl (Bupropion Hcl) 150 Mg Tab 200 Mg PO QAM 05/14/15 Reported Neurontin (Gabapentin) 400 Mg Cap 400 Mg PO DAILY 10/22/14 Reported 1 QAM 2 HS Lioresal (Baclofen) 10 Mg Tab 10 Mg PO HS 03/24/12 Reported Co Q10 (Coenzyme Q10 (Ubidecarenone)) 100 Mg Cap 200 Mg PO HS 09/24/11 Reported Protonix (Pantoprazole Sodium) 40 Mg Tab 40 Mg PO BID 09/24/11 Reported Vitamin D 1000 Unit (Cholecalciferol) 1,000 Unit Cap 1,000 Inter.unit PO BID 09/24/11 Reported Trazodone (Trazodone HCl) 100 Mg Tab 100 Mg PO HS 09/24/11 Reported Lipitor (Atorvastatin Calcium) 80 Mg Tab 80 Mg PO HS 08/11/11 Reported Vitamin B-12 (Cyanocobalamin) 1,000 Mcg Tab 1,000 Mcg PO QAM 04/06/11 Reported [place]-3 (Fish Oil) 1 Ea Cap 1,000 Mg PO BID 11/24/09 Reported Provider Instructions Activity Restrictions - No exercising or heavy lifting for 24 hours. - Do not drink alcohol the day of the procedure. - Do not drive a car or operate machinery until the day after the procedure. - Do not make any important decisions or sign important papers in 24 hours after the procedure. Following Day: - Return to full activity which may include returning to work/school. Diet Start your diet with liquids and light foods (jello, soup, juice, toast). Then eat your usual diet if not nauseated. Treatment For Common After Affects For mild abdominal pain, bloating, or excessive gas: - Rest - Eat lightly - Lie on right side Follow-Up Information Follow-up with DR. HANKINS as scheduled Anesthesia Information What You Should Know You have had a procedure that required some medicine to reduce anxiety and discomfort. This treatment is called moderate sedation. After receiving the treatment, you may be sleepy, but you will be able to breathe on your own. The effects of the treatment may last for several hours. Follow these instructions along with Activity/Diet recommendations noted above: * Do NOT do anything where dizziness or clumsiness would be dangerous. * Rest quietly at home today, then you can be up and about tomorrow. * Have a responsible person stay with you the rest of today. * You may have had an I.V. today. If so, you may take the dressing off later today. Recommendations Call your doctor if: * Trouble breathing * Continuous vomiting for more than 24 hours * Temperature above 101 degrees * Severe abdominal pain or bloating * Pain not relieved by pain medicine ordered * There is increased drainage or redness from any incision * A large amount of rectal bleeding greater than 2-3 tablespoons. (If you had a polyp/s removed or have hemorrhoids, a small amount of blood - from the rectum is to be expected.) * You have any unanswered questions or concerns. IN THE EVENT OF A SERIOUS EMERGENCY, GO TO THE NEAREST EMERGENCY ROOM Your discharge instructions were prepared by provider Carlos Russo. Patient Instructions Signature Page Viola Monroy Patient (or Guardian) Signature/Date: I have read and understand the instructions given to me by my caregivers. Caregiver/RN/Doctor Signature/Date: The above-named patient and/or guardian has received patient instructions on this date. + Original Patient Signature Page (only) stays with chart. Please make copy for patient.
--- NOTE | 2016-12-02 16:35 | GI REPORT ---
Procedure Date: 12/02/2016 3:42 PM Procedure: Upper GI endoscopy Indications: Epigastric abdominal pain Medicines: Monitored Anesthesia Care Complications: No immediate complications. Estimated Blood Loss: Estimated blood loss: none. Procedure: Pre-Anesthesia Assessment: - Prior to the procedure, a History and Physical was performed, and patient medications and allergies were reviewed. The patient's tolerance of previous anesthesia was also reviewed. The risks and benefits of the procedure and the sedation options and risks were discussed with the patient. All questions were answered, and informed consent was obtained. Prior Anticoagulants: The patient has taken Plavix (clopidogrel), last dose was 7 days prior to procedure. ASA Grade Assessment: III - A patient with severe systemic disease. After reviewing the risks and benefits, the patient was deemed in satisfactory condition to undergo the procedure. After obtaining informed consent, the endoscope was passed under direct vision. Throughout the procedure, the patient's blood pressure, pulse, and oxygen saturations were monitored continuously. The Scope was introduced through the mouth, and advanced to the second part of duodenum. The upper GI endoscopy was accomplished without difficulty. The patient tolerated the procedure well. Findings: The esophagus was normal. A small hiatus hernia was present. Localized severe inflammation characterized by congestion (edema), erosions and friability was found in the gastric antrum. Biopsies were taken with a cold forceps for histology. The examined duodenum was normal. Impression: - Normal esophagus. - Small hiatus hernia. - Gastritis. Biopsied. - Normal examined duodenum. Recommendation: - Resume previous diet. - Use sucralfate tablets 1 gram PO QID for 10 days. - Await pathology results. - Return to GI office as previously scheduled. *Patient requested rectal exam following EGD and was found to have internal hemorrhoids, otherwise the JESSE was normal. Carlos Russo DO 12/02/2016 4:32:24 PM This report has been signed electronically. Note Initiated On: 12/02/2016 3:42 PM I attest to the content of the Intraoperative Record and orders documented therein, exceptions below
[2016-12-02 16:40] VITALS: BP 137/48; PULSE 74; O2SAT 98
--- NOTE | 2016-12-02 16:40 | Anesthesiology Progress Note ---
Anesthesia Post Op Note Date & Time Dec 02, 2016 at 16:39 Vital Signs Pain Intensity: 0 Vital Signs Past 12 Hours Date Time Temp Pulse Resp B/P Pulse Ox O2 Delivery O2 Flow Rate FiO2 12/02/16 16:25 74 18 126/48 98 Room Air 12/02/16 16:10 78 20 143/93 95 Room Air 12/02/16 14:58 36.7 69 18 117/55 96 Room Air Notes Mental Status: alert / awake / arousable, participated in evaluation Pt Amnestic to Procedure: Yes Nausea / Vomiting: adequately controlled Pain: adequately controlled Airway Patency, RR, SpO2: stable & adequate BP & HR: stable & adequate Hydration State: stable & adequate Anesthetic Complications: no major complications apparent
== END | disposition home or self-care (01) ==
LOC: C.GI 14:37
PROVIDERS: ATTEND Internal Medicine
DX: R10.13 Epigastric pain (principal); K44.9 Diaphragmatic hernia without obstruction or gangrene; K29.70 Gastritis, unspecified, without bleeding; K31.9 Disease of stomach and duodenum, unspecified; E11.9 Type 2 diabetes mellitus without complications; I25.10 Atherosclerotic heart disease of native coronary artery without angina pectoris; J44.9 Chronic obstructive pulmonary disease, unspecified; J45.909 Unspecified asthma, uncomplicated; G47.33 Obstructive sleep apnea (adult) (pediatric); F41.9 Anxiety disorder, unspecified; I25.2 Old myocardial infarction; Z95.1 Presence of aortocoronary bypass graft; Z68.24 Body mass index [BMI] 24.0-24.9, adult; Z79.02 Long term (current) use of antithrombotics/antiplatelets; Z79.899 Other long term (current) drug therapy; Z98.890 Other specified postprocedural states; Z90.49 Acquired absence of other specified parts of digestive tract

== ENCOUNTER → 2017-04-20 | Outpatient (CLI) | payer OTHER ==
[~2017-04-20] MED LIST changes: -LIDOCAINE HCL 2% 2 ML VIAL (20MG/ML) ONE; -PROPOFOL IV EMULSION 10 MG/ML 20 ML VIAL IV ONE; -SODIUM CHLORIDE 0.9% 500ML 500 ML IV ONE; -TOPI200T20 PO; -VRPSR180 PO
--- NOTE | 2017-04-20 14:19 | MAMMOGRAPHY REPORT ---
BILATERAL DIGITAL SCREENING MAMMOGRAM TOMOSYNTHESIS WITH CAD: 04/20/2017 CLINICAL HISTORY: Routine screening. Patient has no complaints. TECHNIQUE: Breast tomosynthesis in addition to standard 2D mammography was performed. Current study was also evaluated with a Computer Aided Detection (CAD) system. COMPARISON: Comparison is made to exams dated: 04/19/2016 mammogram, 06/18/2014 ultrasound, 4 mammogram, 08/24/2011 mammogram, 06/04/2010 mammogram - [facility], and 03/24/2009. BREAST COMPOSITION: There are scattered areas of fibroglandular density in both breasts. FINDINGS: No suspicious masses, calcifications, or areas of architectural distortion are noted in ei ther breast. There has been no significant interval change compared to prior exams. Bilateral benign -appearing calcifications are again noted. IMPRESSION: ACR BI-RADS CATEGORY 2: BENIGN There is no mammographic evidence of malignancy. A 1 year screening mammogram is recommended. The pa tient will receive written notification of the results. Approximately 10% of breast cancers are not detected with mammography. A negative mammographic report should not delay biopsy if a clinically suggestive mass is present. Betty Gandhi M.D. /:04/20/2017 11:57:09 Trimming Caser: Liane Marshall, [facility] letter sent: Normal 1/2 BI-RADS Code: ACR BI-RADS Category 2: Benign
== END | disposition home or self-care (01) ==
LOC: C.MAMM 10:30
PROVIDERS: ATTEND Family Medicine
DX: Z12.31 Encounter for screening mammogram for malignant neoplasm of breast (principal)

== ENCOUNTER → 2017-05-30 | Outpatient (CLI) | payer OTHER ==
[~2017-05-30] MED LIST changes: +MethylPREDNISolone HOME PACK 16 MG TAB PO SCH; +OPTIRAY 320 IV PRN; +VRPSR180 PO
--- NOTE | 2017-05-30 08:02 | DIAGNOSTIC IMAGING REPORT ---
CHEST CT WITH CONTRAST CT DOSE: 269.82 mGy.cm HISTORY: Acute right-sided chest pain with cough RIGHT SIDE CHEST PAIN, COUGH TECHNIQUE: Multiaxial CT images of the chest were performed following the intravenous administration of 75 mL Optiray 320. A dose lowering technique was utilized adhering to the principles of ALARA. COMPARISON: CTA 04/30/2016, CT abdomen 10/21/2016. FINDINGS: Thyroid is homogeneous. No pathologic adenopathy of the chest identified. Mildly prominent subcarinal lymph node, 7 mm is likely physiologic. Prior median sternotomy and CABG. Heart is normal in size without pericardial effusion. [place] coronary arterial disease. Moderate atherosclerotic plaquing of the thoracic aorta and great vessels. No aortic dissection or aneurysm identified. The opacified pulmonary arterial tree is within normal limits. There is no pneumothorax or pleural effusion. Mild centrilobular emphysema. There are no suspicious pulmonary nodules or pulmonary masses identified. Minimal layering secretions are seen within the tracheobronchial tree. Linear subsegmental pleural based opacities of the inferior segment lingula suggest atelectasis or scarring. Prior cholecystectomy. No acute amount of the upper abdomen. Moderate volume of formed colonic stool of the transverse colon and splenic flexure. Soft tissues are unremarkable. Calcifications measuring up to 2.1 x 0.7 cm are noted adjacent to the posterior facet greater tuberosity on image 7 of series 4. Remote compression deformity with vertebroplasty changes at T11. No acute bony abnormality identified. IMPRESSION: 1. No acute intrathoracic abnormality identified. No focal airspace consolidation to suggest pneumonia. 2. [place] coronary arterial disease with prior median sternotomy and CABG. 3. Mild centrilobular emphysema. 4. Calcifications about the right humeral head measuring up to 2.1 cm suggests rotator cuff calcific tendinosis or calcific bursitis. Electronically signed by: Pablo Smith M.D. 05/30/2017 8:00 AM Dictated Date/Time: 05/30/2017 7:52 AM
== END | disposition home or self-care (01) ==
LOC: C.CTS 05-27 14:20
PROVIDERS: ATTEND Family Medicine
DX: R07.9 Chest pain, unspecified (principal); F17.200 Nicotine dependence, unspecified, uncomplicated; I25.10 Atherosclerotic heart disease of native coronary artery without angina pectoris; M25.811 Other specified joint disorders, right shoulder

== ENCOUNTER → 2017-06-21 | Outpatient (CLI) | payer OTHER ==
[~2017-06-21] MED LIST changes: -MethylPREDNISolone HOME PACK 16 MG TAB PO SCH; -OPTIRAY 320 IV PRN; -VERA120T15 PO; -topamax PO
== END | disposition home or self-care (01) ==
LOC: C.MAMM 13:58
PROVIDERS: ATTEND Family Medicine
DX: M81.0 Age-related osteoporosis without current pathological fracture (principal); M85.89 Other specified disorders of bone density and structure, multiple sites

== ENCOUNTER 2017-08-02 12:14 | Emergency (ER) | payer OTHER ==
[~2017-08-02] VITALS: Ht 162.6 cm; Wt 65.0 kg
[2017-08-02 12:16] VITALS: Ht 162.6 cm; Wt 65.0 kg
[2017-08-02] MEDS ORDERED: ALBUT/IPRATROP 3MG/0.5MG NEB 3 ML VIAL INH STA (13:48)
[2017-08-02] MEDS ORDERED: SODIUM CHLORIDE 0.9% 1000ML 1,000 ML IV STA (13:48)
[2017-08-02] MEDS ORDERED: KETOROLAC TROMETHAMINE 30 MG/ML VIAL IV STA (13:48)
[2017-08-02 14:28] LABS: BASO % 0.2 %; BASO ABS # 0.01 K/uL (0-0.2); COMPLETE YES; EOS % 1.2 %; HEMATOCRIT 39.1 % (37-47); IG% 0.2 %; LYMPH % 20.1 %; LYMPH ABS # 1.03 K/uL (1.2-3.4); MEAN CELL VOLUME 85.4 fL (80-100); MEAN CORPUSCULAR HEMOGLOBIN 26.6 pg (25-34); MEAN CORPUSCULAR HGB CONC 31.2 g/dl (32-36); MEAN PLATELET VOLUME 10.8 fL (7.4-10.4); MONO % 9.8 %; NEUT % 68.5 %; PLATELET COUNT 163 K/uL (130-400); RED BLOOD COUNT 4.58 M/uL (4.2-5.4); WHITE BLOOD COUNT 5.12 K/uL (4.8-10.8)
[2017-08-02 14:48] LABS: BUN/CREATININE RATIO 15.6 (10-20); CALCIUM 8.3 mg/dl (8.5-10.1); CREATININE 0.87 mg/dl (0.60-1.20); POTASSIUM 3.9 mmol/L (3.5-5.1)
--- NOTE | 2017-08-02 14:59 | DIAGNOSTIC IMAGING REPORT ---
TWO VIEW CHEST CLINICAL HISTORY: Flulike symptoms. Productive cough. FINDINGS: PA and lateral chest radiographs are compared to study dated 10/21/2016 and correlated with chest CT dated 05/30/2017. The patient is status post midline sternotomy. The heart is top normal in size and there is atherosclerotic calcification of the thoracic aorta. Chronic interstitial thickening is unchanged. No airspace consolidation or pleural effusion is identified. There is no pneumothorax. The skeletal structures are osteopenic. A compression deformity with vertebroplasty change is seen in the lower thoracic spine. Fusion hardware is partially imaged in the lumbar spine. Calcific tendinopathy is noted in the right shoulder. Cholecystectomy clips are seen in the right upper quadrant. IMPRESSION: No acute cardiopulmonary abnormality. Electronically signed by: Fermin Betancourt M.D. 08/02/2017 2:58 PM Dictated Date/Time: 08/02/2017 2:57 PM
[2017-08-02 15:16] VITALS: TEMP 37.2
[2017-08-02] MEDS ORDERED: ACET-749 PO (15:45)
--- NOTE | 2017-08-02 15:45 | EMERGENCY ROOM VISIT NOTE ---
History First contact with patient: 13:31 Chief Complaint: FLU LIKE SX Stated Complaint: WEAKNESS,UPSET STOMACH History of Present Illness Patient is a 57-year-old white female who presents to the emergency department for evaluation of influenza-like symptoms 3 days. Patient states that she 3 days ago, she developed congestion, cough, headache, body and muscle aches, fatigue and weakness. She reports feeling a little bit nauseous and anorexic. She did not check her temperature at home, but denies feeling feverish or having chills. She has been trying to increase her fluid intake because she has not been eating as much. She has used multiple yxsc-mqa-ellbvhn medications including Robitussin, DayQuil, Tabitha-[place] and cough drops, as well as albuterol/laser treatment, but her symptoms were not improving. She can feel herself wheezing on occasion. Cough is largely nonproductive. She denies any abdominal pain, vomiting or diarrhea. No urinary symptoms. No skin rashes. She denies any posterior neck pain or stiffness. She is not aware of any sick contacts. She did receive an influenza vaccine this season. Review of Systems Review of systems as per HPI. All other systems reviewed were negative. 10 systems reviewed. Past Medical/Surgical History Medical Problems: (1) Anterior epistaxis (2) Arm pain, right (3) Back strain (4) Cauda equina syndrome (5) Chest pain (6) Chest pain (7) Chronic pain syndrome (8) Confusion (9) COPD (chronic obstructive pulmonary disease) (10) Coronary artery disease (11) Diabetes mellitus type 2 (12) Dizziness (13) Gastroesophageal reflux disease (14) Hyperlipidemia (15) Hypertensive disorder, systemic arterial (16) Lumbar disc herniation (17) Migraine (18) Right sided abdominal pain (19) Right-sided chest pain (20) Shortness of breath (21) Shoulder pain, right (22) Sinusitis (23) Slurred speech (24) Symptomatic anemia (25) Symptomatic anemia Electronic medical records are reviewed and summarized as above/below. See Problem List. Family History FH: HTN (hypertension) FH: diabetes mellitus Heart disease Social History Smoking Status: Current Every Day Smoker Alcohol Use: none Drug Use: none Marital Status: single, Housing Status: lives alone Occupation Status: disabled Current/Historical Medications Scheduled Atorvastatin (Lipitor), 80 MG PO HS Baclofen (Lioresal), 10 MG PO HS Bupropion Hcl (Bupropion Hcl Xl), 200 MG PO QAM Cholecalciferol (Vitamin D 1000 Unit), 1,000 INTER.UNIT PO BID Clopidogrel (Plavix), 75 MG PO QAM Coenzyme Q10 (Ubidecarenone) (Co Q10), 200 MG PO HS Cyanocobalamin (Vitamin B-12), 1,000 MCG PO QAM Duloxetine Hcl (Cymbalta), 90 MG PO QAM Fish Oil ([place]-3), 1,000 MG PO BID Fluticasone Propionate (Flovent Hfa), 2 PUFFS INH BID Gabapentin (Neurontin), 400 MG PO DAILY Melatonin (Melatonin Maximum Strengt), 10 MG PO HS Multivitamin (Multivitamin), 1 TAB PO DAILY Nitroglycerin (Nitrostat), 0.4 MG UT PRN Pantoprazole (Protonix), 40 MG PO BID Trazodone Hcl (Trazodone), 100 MG PO HS Verapamil HCl (Verapamil HCl ER), 180 MG PO DAILY [Meloxicam], 15 MG PO DAILY Scheduled PRN Acetaminophen/Codeine (Tylenol W/Codeine #3), 1-2 TABS PO Q4 PRN for Cough Albuterol Hfa (Ventolin Hfa), 2-4 PUFFS INH Q6H PRN for SOB/Wheezing Diclofenac Sodium (Topical) (Voltaren 1% Top Gel), 1 DOSE TOP QID PRN for Pain Physical Exam Vital Signs Date Time Temp Pulse Resp B/P (MAP) Pulse Ox O2 Delivery O2 Flow Rate FiO2 08/02/17 16:12 74 18 101/58 97 08/02/17 15:16 37.2 74 16 98/38 95 08/02/17 12:16 37.0 96 22 124/78 94 Room Air Physical Exam MENTAL STATUS: Patient is an uncomfortable, although nontoxic appearing 57-year- old white female who is awake and alert and in no acute distress. Vital signs table. She is afebrile. HEAD: Atraumatic, without temporal or scalp tenderness. EYES: PERRL, EOMI, no discharge or injection. EARS: Tympanic membranes intact, not inflamed, have normal contour. External canals clear. NOSE: Nares patent, turbinates moist without rhinorrhea. MOUTH: Mucous membranes moist, no lesions, tongue and gums appear normal. THROAT: No pharyngeal injection, exudates, or tonsillar hypertrophy. Airway is patent. NECK: No bruits auscultated. Supple, nontender, no lymphadenopathy. No nuchal rigidity. HEART: Regular rate and rhythm without murmurs, ectopy, gallops, or rubs. LUNGS: Breath sounds are slightly diminished, with inspiratory and expiratory wheezes throughout. No accessory muscle use or retractions. ABDOMEN: Bowel sounds are present. Abdomen is soft, nondistended, nontender. No guarding, rebound or rigidity. SKIN: Normal. NEUROLOGICAL: Sensory and motor functions grossly intact. Normal gait. Medical Decision & Procedures ER Provider Diagnostic Interpretation: TWO VIEW CHEST CLINICAL HISTORY: Flulike symptoms. Productive cough. FINDINGS: PA and lateral chest radiographs are compared to study dated 10/21/2016 and correlated with chest CT dated 05/30/2017. The patient is status post midline sternotomy. The heart is top normal in size and there is atherosclerotic calcification of the thoracic aorta. Chronic interstitial thickening is unchanged. No airspace consolidation or pleural effusion is identified. There is no pneumothorax. The skeletal structures are osteopenic. A compression deformity with vertebroplasty change is seen in the lower thoracic spine. Fusion hardware is partially imaged in the lumbar spine. Calcific tendinopathy is noted in the right shoulder. Cholecystectomy clips are seen in the right upper quadrant. IMPRESSION: No acute cardiopulmonary abnormality. Laboratory Results 08/02/17 14:10 Red Blood Count 4.58, Mean Corpuscular Volume 85.4, Mean Corpuscular Hemoglobin 26.6, Mean Corpuscular Hemoglobin Concent 31.2, Mean Platelet Volume 10.8, Neutrophils (%) (Auto) 68.5, Lymphocytes (%) (Auto) 20.1, Monocytes (%) (Auto) 9.8, Eosinophils (%) (Auto) 1.2, Basophils (%) (Auto) 0.2, Neutrophils # (Auto) 3.51, Lymphocytes # (Auto) 1.03, Monocytes # (Auto) 0.50, Eosinophils # (Auto) 0.06, Basophils # (Auto) 0.01 08/02/17 14:10 Test 08/02/17 14:00 08/02/17 14:10 Influenza Type A Antigen Neg for Influ A (NEG) Influenza Type B Antigen Neg for Influ B (NEG) White Blood Count 5.12 K/uL (4.8-10.8) Red Blood Count 4.58 M/uL (4.2-5.4) Hemoglobin 12.2 g/dL (12.0-16.0) Hematocrit 39.1 % (37-47) Mean Corpuscular Volume 85.4 fL (80-100) Mean Corpuscular Hemoglobin 26.6 pg (25-34) Mean Corpuscular Hemoglobin Concent 31.2 g/dl (32-36) Platelet Count 163 K/uL (130-400) Mean Platelet Volume 10.8 fL (7.4-10.4) Neutrophils (%) (Auto) 68.5 % Lymphocytes (%) (Auto) 20.1 % Monocytes (%) (Auto) 9.8 % Eosinophils (%) (Auto) 1.2 % Basophils (%) (Auto) 0.2 % Neutrophils # (Auto) 3.51 K/uL (1.4-6.5) Lymphocytes # (Auto) 1.03 K/uL (1.2-3.4) Monocytes # (Auto) 0.50 K/uL (0.11-0.59) Eosinophils # (Auto) 0.06 K/uL (0-0.5) Basophils # (Auto) 0.01 K/uL (0-0.2) RDW Standard Deviation 52.1 fL (36.4-46.3) RDW Coefficient of Variation 16.7 % (11.5-14.5) Immature Granulocyte % (Auto) 0.2 % Immature Granulocyte # (Auto) 0.01 K/uL (0.00-0.02) Anion Gap 4.0 mmol/L (3-11) Est Creatinine Clear Calc Drug Dose 61.6 ml/min Estimated GFR () 85.7 Estimated GFR (Non- 74.0 BUN/Creatinine Ratio 15.6 (10-20) Calcium Level 8.3 mg/dl (8.5-10.1) Medications Administered Medications (Trade) Dose Ordered Sig/Shelley Route Start Time Stop Time Status Last Admin Dose Admin Sodium Chloride 1,000 ml @ 999 mls/hr Q1H1M STAT IV 08/02/17 13:48 08/02/17 14:48 DC 08/02/17 14:08 999 MLS/HR Albuterol/ Ipratropium (Duoneb) 3 ml NOW STAT INH 08/02/17 13:48 08/02/17 13:51 DC 08/02/17 14:08 3 ML Ketorolac Tromethamine (Toradol Inj) 30 mg NOW STAT IV 08/02/17 13:48 08/02/17 13:51 DC 08/02/17 14:08 30 MG ED Course The patient was seen and evaluated as above. She presents to the emergency department for evaluation of flulike symptoms over the last 3-4 days. She is afebrile, and nontoxic in appearance. IV lock was initiated and she was hydrated with normal saline solution. She was medicated with Toradol 30 mg IV for complaints of headache and body and muscle aches. She was given a DuoNeb treatment, which did help clear some of her wheezing. CBC with differential, BMP, and flu swab were obtained. Chest x-ray was performed and was unremarkable. Laboratory studies noted a normal white count of 5100, no left shift or bandemia. H&H is normal. Electrolytes are without significant abnormality. Influenza swab was negative. The patient was reassessed, she reported slight improvement in her symptoms with the IV fluids and Toradol. Conservative care measures were discussed with her. Possibility of influenza, despite the flu shot and the negative flu swab today was discussed. Otherwise the suspect her illness is viral in nature. She does not have any evidence for superimposed bacterial infection such as ear infection, sinusitis, pneumonia or bronchitis. She certainly does not demonstrate any signs of nuchal rigidity to suspect meningitis. Continued conservative care measures were discussed with the patient. She was encouraged to use ktjf-ldq-[id number] medications for symptomatic relief. She was offered a cough syrup, but states that codeine based cough syrups were not covered by her insurance, and in the past her primary care providers have given her Tylenol with codeine. Patient was reviewed in the [facility] Prescription Drug Monitoring Program, and there were no red flags noted. She has received 2 Tylenol with codeine prescriptions earlier this year when she was dealing with bronchitis. She was given a small prescription for Tylenol #3 to use as needed for cough. She was educated on the worrisome signs or symptoms for which she should return to the emergency department and was otherwise encouraged to follow up with her primary care provider this week if her symptoms are not improving. She was discharged home in stable condition with her sister. Medical Decision See ED Course. [facility] Drug Monitoring Program Search Results: patient reviewed within database, no issues identified Medication Reconcilliation Current Medication List: was personally reviewed by me Blood Pressure Screening Patient's blood pressure: Low blood pressure Blood pressure disposition: Did not require urgent referral Impression Primary Impression: Influenza-like symptoms Departure Information Prescriptions Acetaminophen/Codeine (Tylenol W/Codeine #3) 300 Mg/30 Mg Tab 1-2 TABS PO Q4 Y for Cough, #20 TAB For Initial Treatment Prov: Verena Tapia PA 08/02/17 Referrals Julio César Diop M.D. (PCP) Patient Instructions My [facility] Additional Instructions Acetaminophen(Tylenol) may be used for fever or pain. Use 1000mg every six hours as needed. Avoid using more than 3000mg in a 24 hour period. (AND/OR) Ibuprofen(Motrin, Advil) may be used for fever or pain. Use 600mg every six hours as needed. Take with food. Avoid using more than 2400mg in a 24 hour period. Do not use 2400mg per day for more than three consecutive days without physician direction. Prolonged inappropriate use can lead to stomach upset or ulcers. Pseudoephedrine(Sudaphed): 30-60mg every 6 hours as needed for nasal congestion. Do not take this with other stimulant products or supplements. Guaifenesin (Mucinex) : Take 1200 mg every 12 hours as needed for nasal/chest congestion, to help thin secretions. Continue albuterol nebulizer/inhaler every 4 hours for cough, wheezing or shortness of breath. Tylenol #3: use 1 tablet every six hours only as needed for severe cough. It is best for use at night since it will cause sedation. This is a narcotic medication. Avoid alcohol, operating machinery or dangerous equipment, working on ladders or roofs, DRIVING, or situations where being under the influence may be dangerous. It is recommended to use an ebmt-tin-mytppva stool softener such as Colace, 100mg twice daily while taking this medication to avoid constipation. Rest and drink plenty of fluids. Wash your hands after nose blowing, sneezing, or coughing. Most germs are spread through contact, therefore improper hygiene may result in your close contacts and loved ones becoming ill just like you. Continue current medications. Return to the ER for severe headache, neck stiffness, chest pain, difficulty breathing, fevers, vomiting, worsening of your condition, or as needed. Follow up with your primary physician this week for a recheck of your current condition.
[2017-08-02 16:12] VITALS: BP 101/58; PULSE 74; O2SAT 97
== END 2017-08-02 15:57 | disposition home or self-care (01) ==
LOC: C.EDB 12:15
DX: R05 Cough (principal); R51 Headache; R09.89 Other specified symptoms and signs involving the circulatory and respiratory systems; R53.83 Other fatigue; R53.1 Weakness; M79.1 Myalgia; G89.4 Chronic pain syndrome; J44.9 Chronic obstructive pulmonary disease, unspecified; I25.10 Atherosclerotic heart disease of native coronary artery without angina pectoris; E11.9 Type 2 diabetes mellitus without complications; E78.5 Hyperlipidemia, unspecified; K21.9 Gastro-esophageal reflux disease without esophagitis; I10 Essential (primary) hypertension; M51.26 Other intervertebral disc displacement, lumbar region; F17.200 Nicotine dependence, unspecified, uncomplicated; Z82.49 Family history of ischemic heart disease and other diseases of the circulatory system; Z83.3 Family history of diabetes mellitus

== ENCOUNTER → 2017-10-18 | Outpatient (CLI) | payer OTHER ==
[~2017-10-18] MED LIST changes: +ACET-749 PO; -CLOP1TAB15 PO; +GABA-1220 PO; -GABA1CAP5 PO
== END | disposition home or self-care (01) ==
LOC: C.RDSM 07:00
PROVIDERS: ATTEND Physical Medicine & Rehabilitation Sports Medicine
DX: M25.561 Pain in right knee (principal)

== ENCOUNTER → 2017-11-11 | Outpatient (CLI) | payer OTHER ==
--- NOTE | 2017-11-11 07:32 | DIAGNOSTIC IMAGING REPORT ---
CT SCAN OF THE PARANASAL SINUSES CLINICAL HISTORY: Chronic sinusitis. COMPARISON STUDY: No priors. TECHNIQUE: High-resolution CT scan of the paranasal sinuses is performed. Images are reviewed in the axial, sagittal, and coronal planes. IV contrast was not administered for this examination. The examination is performed using the fusion protocol. A dose lowering technique was utilized adhering to the principles of ALARA. CT DOSE: 615.36 mGy.cm FINDINGS: Maxillary antra: Trace dependent mucosal thickening is seen on the left. Clear on the right. Anterior ethmoid sinuses: Mild mucosal thickening is seen within an anterior right ethmoid sinus. Otherwise clear. Posterior ethmoid sinuses: Clear. Sphenoid sinuses: Clear. Frontal sinuses: Clear. Ostiomeatal complexes: Patent bilaterally. A Gianluca cell is noted on the right. Frontoethmoidal and sphenoethmoidal recesses: Patent bilaterally. Carotid arteries: The carotid arteries are covered and without septal attachments. Ethmoid roofs: The ethmoid roofs are symmetric. Nasal turbinates: Normal in appearance. Nasal septum: There is mild rightward deviation of the bony nasal septum. Optic nerves: Covered. Orbits: The bony orbits are intact. Orbital contents are normal in appearance. Calvarium: The skeletal structures are osteopenic. The calvarium appears intact. Mastoid air cells: Well pneumatized. Brain parenchyma: Partially visualized brain parenchyma is within normal limits. IMPRESSION: No significant paranasal sinus disease is identified. See above. Electronically signed by: Fermin Betancourt M.D. 11/11/2017 7:31 AM Dictated Date/Time: 11/11/2017 7:27 AM
== END | disposition home or self-care (01) ==
LOC: C.CTS 07:12
DX: J32.9 Chronic sinusitis, unspecified (principal)

== ENCOUNTER → 2017-11-22 | Outpatient (CLI) | payer OTHER ==
[~2017-11-22] MED LIST changes: +ACET-1693 PO; +ASPI81TA28 PO; +BUPRTAB51 PO; +HYDR-5688 PO; +LIDO1CRE31 TOP; +POLY335019 PO; +TERI600S SQ; +VERA240T21 PO
== END | disposition home or self-care (01) ==
LOC: C.RC 11:00
PROVIDERS: ATTEND Family Medicine
DX: J43.2 Centrilobular emphysema (principal); R05 Cough; F17.210 Nicotine dependence, cigarettes, uncomplicated

== ENCOUNTER → 2017-12-13 | Day surgery (SDC) | payer OTHER ==
[2017-11-25 10:25] VITALS: BMI 25.0
--- NOTE | 2017-11-25 11:09 | PAT Medication Instructions ---
Service Date Nov 25, 2017. Current Home Medication List Acetaminophen Tab (Tylenol), 650 MG PO Q6 PRN for Pain Albuterol Hfa (Ventolin Hfa), 2-4 PUFFS INH Q6H PRN for SOB/Wheezing Aspirin (Aspirin Ec), 81 MG PO HS Atorvastatin (Lipitor), 80 MG PO HS Baclofen (Lioresal), 10 MG PO HS Bupropion (Wellbutrin-Xl), 300 MG PO QAM Cholecalciferol (Vitamin D 1000 Unit), 1,000 INTER.UNIT PO BID Coenzyme Q10 (Ubidecarenone) (Co Q10), 200 MG PO HS Cyanocobalamin (Vitamin B-12), 1,000 MCG PO QAM Diclofenac Sodium (Topical) (Voltaren 1% Top Gel), 1 DOSE TOP QID PRN for Pain Duloxetine Hcl (Cymbalta), 90 MG PO QAM Fish Oil ([place]-3), 1,000 MG PO BID Gabapentin (Neurontin), 400 MG PO DAILY Hydrocodone/Acetaminophen 5MG/325MG ([place] 5MG/325MG), 1 TABLET PO Q6 PRN for Pain Lidocaine (Lidocaine), 1 DOSE TOP UD PRN for Pain Melatonin (Melatonin Maximum Strengt), 10 MG PO HS Multivitamin (Multivitamin), 1 TAB PO QAM Nitroglycerin (Nitrostat), 0.4 MG UT PRN Pantoprazole (Protonix), 40 MG PO BID Polyethylene Glycol 3350 (Miralax), 17 GM PO DAILY PRN for Constipation Teriparatide (Recombinant) (Fort[place]), 20 MCG SQ HS Trazodone Hcl (Trazodone), 100 MG PO HS Verapamil HCl (Verapamil HCl Cr), 1 TAB PO HS Medication Instructions For Your Scheduled Surgery -Continue as directed: Nitroglycerin (Nitrostat), 0.4 MG UT PRN - Hold the following medications 2 weeks prior to surgery: Coenzyme Q10 (Ubidecarenone) (Co Q10), 200 MG PO HS Fish Oil ([place]-3), 1,000 MG PO BID - Hold the following medications 24 hours prior to surgery: Diclofenac Sodium (Topical) (Voltaren 1% Top Gel), 1 DOSE TOP QID PRN for Pain Lidocaine (Lidocaine), 1 DOSE TOP UD PRN for Pain - Hold the following medications the morning of surgery: Cholecalciferol (Vitamin D 1000 Unit), 1,000 INTER.UNIT PO BID Cyanocobalamin (Vitamin B-12), 1,000 MCG PO QAM Multivitamin (Multivitamin), 1 TAB PO QAM Polyethylene Glycol 3350 (Miralax), 17 GM PO DAILY PRN for Constipation - Take the following medications the morning of surgery with a sip of water: Acetaminophen Tab (Tylenol), 650 MG PO Q6 PRN for Pain (if needed, can be taken up to four hours before surgery) Albuterol Hfa (Ventolin Hfa), 2-4 PUFFS INH Q6H PRN for SOB/Wheezing (if needed , and bring it with you to the hospital) Bupropion (Wellbutrin-Xl), 300 MG PO QAM Duloxetine Hcl (Cymbalta), 90 MG PO QAM Gabapentin (Neurontin), 400 MG PO DAILY Hydrocodone/Acetaminophen 5MG/325MG ([place] 5MG/325MG), 1 TABLET PO Q6 PRN for Pain (if needed, can be taken up to four hours before surgery) Pantoprazole (Protonix), 40 MG PO BID - Take the following medications as scheduled the night before surgery: Acetaminophen Tab (Tylenol), 650 MG PO Q6 PRN for Pain (if needed) Albuterol Hfa (Ventolin Hfa), 2-4 PUFFS INH Q6H PRN for SOB/Wheezing (if needed) Aspirin (Aspirin Ec), 81 MG PO HS (OK per surgeon) Atorvastatin (Lipitor), 80 MG PO HS Baclofen (Lioresal), 10 MG PO HS Cholecalciferol (Vitamin D 1000 Unit), 1,000 INTER.UNIT PO BID Gabapentin (Neurontin), 400 MG PO DAILY Hydrocodone/Acetaminophen 5MG/325MG ([place] 5MG/325MG), 1 TABLET PO Q6 PRN for Pain (if needed) Melatonin (Melatonin Maximum Strengt), 10 MG PO HS Pantoprazole (Protonix), 40 MG PO BID Teriparatide (Recombinant) ([place]), 20 MCG SQ HS Trazodone Hcl (Trazodone), 100 MG PO HS Verapamil HCl (Verapamil HCl Cr), 1 TAB PO HS If you have any questions please call us at [phone] or [phone] or [phone]
[2017-11-25 12:55] LABS: BASO % 0.2 %; BASO ABS # 0.01 K/uL (0-0.2); EOS % 3.5 %; EOS ABS # 0.15 K/uL (0-0.5); HEMATOCRIT 36.7 % (37-47); HEMOGLOBIN 11.8 g/dL (12.0-16.0); IG# 0.01 K/uL (0.00-0.02); LYMPH % 28.7 %; LYMPH ABS # 1.24 K/uL (1.2-3.4); MEAN CELL VOLUME 85.3 fL (80-100); MEAN CORPUSCULAR HEMOGLOBIN 27.4 pg (25-34); MEAN CORPUSCULAR HGB CONC 32.2 g/dl (32-36); MEAN PLATELET VOLUME 9.9 fL (7.4-10.4); MONO % 6.5 %; MONO ABS # 0.28 K/uL (0.11-0.59); NEUT % 60.9 %; NEUT ABS # 2.63 K/uL (1.4-6.5); PLATELET COUNT 216 K/uL (130-400); RED CELL DISTRIBUTION WIDTH CV 15.5 % (11.5-14.5); RED CELL DISTRIBUTION WIDTH SD 48.6 fL (36.4-46.3); WHITE BLOOD COUNT 4.32 K/uL (4.8-10.8)
[2017-11-25 14:33] LABS: CALCIUM 9.5 mg/dl (8.5-10.1); CREATININE 0.93 mg/dl (0.60-1.20)
[2017-11-25 14:45] LABS: POTASSIUM 3.9 mmol/L (3.5-5.1)
--- NOTE | 2017-12-12 17:08 | HISTORY & PHYSICAL EXAMINATION ---
DATE OF ADMISSION: 12/13/2017 CHIEF COMPLAINT: Calcific tendonitis of the right shoulder. HISTORY OF PRESENT ILLNESS: Viola is a pleasant 57-year-old female who has been dealing with chronic right shoulder pain. MRI and clinical examination have been diagnostic for a large area of calcific tendonitis of the right shoulder. After failing extensive conservative treatment including multiple injections, she elected to proceed with arthroscopy. PAST MEDICAL HISTORY: Significant for heart disease, hyperlipidemia, GERD, asthma, emphysema, COPD. PAST SURGICAL HISTORY: Significant for L3-L5 spinal fusion, cholecystectomy in 2011, quadruple bypass in 2010, bone grafting to her right knee, right knee arthroscopy, and hysterectomy. ALLERGIES: INCLUDE MAXALT, IMITREX, AND LOPRESSOR. FAMILY HISTORY: Significant for heart disease, diabetes, skin, and liver cancer. SOCIAL HISTORY: She is , never drinks. Smokes a pack a day for 43 years. Moderately active. MEDICATIONS: Include trazodone, [place], Tylenol, albuterol, atorvastatin, MiraLax, melatonin, aspirin, baclofen, Flovent, Wellbutrin, vitamin B12, Cymbalta, and gabapentin. REVIEW OF SYSTEMS: She complains mostly of right shoulder pain. All other pertinent review of systems are negative. PHYSICAL EXAMINATION: GENERAL: She is awake, alert and oriented x3. She is in no apparent distress. She is very pleasant. HEENT: Pupils equal, round, reactive to light. Extraocular motion intact. Oral mucosa pink and moist. HEART: Regular rate per radial pulse. LUNGS: Shantel symmetrically bilaterally with no audible breath sounds. ABDOMEN: Soft, nontender, nondistended. MUSCULOSKELETAL: On physical examination of her right shoulder, she has full active range of motion. She is 5/5 muscle strength with full can testing and external rotation. Negative bear hug and belly press test. Tenderness to palpation over the subacromial space as well as over the AC joint and the biceps narciso mechanism. She is neurovascularly intact. IMAGING: MRI of the right shoulder shows a large area of calcific tendonitis. It is mostly involved over the area of the infraspinatus. IMPRESSION: Calcific tendonitis of the right shoulder. PLAN: I will proceed with a right shoulder arthroscopy to include extensive debridement and removal of the calcific tendonitis. Postoperatively, she will be placed in an arm sling and discharged to home on oral pain medications. MTDD
[~2017-12-13] VITALS: Ht 160 cm; Wt 66.9 kg
[~2017-12-13] MED LIST changes: -ACET-749 PO; +ACETAMINOPHEN 500 MG TAB PO SCH; +ATROPINE SULFATE 0.1 MG/ML 5ML SYR IV PRN; +BUPIVACAINE 0.5 % 5 MG/1 ML MPF 30ML VIAL ONE; -BUPR150T5 PO; +CEFAZOLIN 2000MG IV PUSH 15 ML IV SCH; +DEXAMETHASONE SOD INJ 4 MG/ML VIAL ONE; +EpHEDrine SULFATE INJ 50 MG/ML AMP IV PRN; +EpHEDrine SULFATE INJ 50 MG/ML AMP ONE; +EpINEphrine HCL INJ 1 MG/ML 1ML SYRINGE ONE; +EpINEphrine INJ 1MG/ML AMP 1 MG/ML AMP ONE; +FAMOTIDINE 20 MG TAB PO SCH; +FENTANYL CITRATE INJ 50 MCG/1 ML 2 ML VIAL IV PRN; +FENTANYL CITRATE INJ 50 MCG/1 ML 2 ML VIAL ONE; -FLVHFA44 INH; +KETO10TA PO; +LACTATED RINGER'S 1000ML 1,000 ML IV SCH; +LACTATED RINGER'S 1000ML IV SCH; +LIDOCAINE HCL 2% 2 ML VIAL (20MG/ML) ONE; +MIDAZOLAM HCL 1 MG/ML 2ML VIAL ONE; -Meloxicam PO; +ONDANSETRON INJ 2 MG/ML 2 ML VIAL IV PRN; +ONDANSETRON INJ 2 MG/ML 2 ML VIAL ONE; +OXYC-57 PO; +OXYCODONE/ACETAMINOPHEN 5-325 TAB PO PRN; +PHENYLEPHRINE HCL INJ 10 MG/ML VIAL ONE; +PROPOFOL IV EMULSION 10 MG/ML 20 ML VIAL ONE; +ROPIVACAINE 0.5% 5 MG/ML 30 ML VIAL ONE; +SODIUM CHLORIDE 0.9% 1000ML 1,000 ML IV SCH; -VRPSR180 PO
[2017-12-13 11:55] VITALS: BP 110/50; PULSE 71; TEMP 37; O2SAT 96; Ht 160 cm; Wt 66.9 kg
--- NOTE | 2017-12-13 14:41 | History & Physical Bridge Note ---
H&P Re-Evaluation Bridge Note: I have examined the patient, reviewed the History & Physical and in the interval since the performance of the History & Physical I have noted the following changes of clinical significance: No changes noted
--- NOTE | 2017-12-13 16:34 | [facility] Post Operative Brief Note ---
Immediate Operative Summary Operative Date December 13, 2017. Pre-Operative Diagnosis Calcific tendonitis of the right shoulder Post-Operative Diagnosis Calcific tendonitis, bicep tenodesis of the right shoulder Procedure(s) Performed Right Shoulder Arthroscopy with Extensive Debridement, Rotator Cuff Repair, Open Bicep Tenodesis Surgeon Dr. Catalan Manager Of Planning Surgeon(s) Yvonne MARINELLI Estimated Blood Loss 10ml Findings Consistent with Post-Op Diagnosis Specimens none Anesthesia Type General Regional Complication(s) none Disposition Disposition: Recovery Room / PACU
--- NOTE | 2017-12-13 16:49 | Discharge Instructions ---
Discharge Instructions Date of Service December 13, 2017. Admission Reason for Admission: Right Shoulder Calcific Tendonitis Discharge Discharge Diagnosis / Problem: SAME ABOVE Discharge Goals Goal(s): Decrease discomfort, Improve function Activity Recommendations Activity Limitations: as noted below Lifting Limitations: until after follow-up appointment Exercise/Sports Limitations: until after follow-up appointment Shower/Bathe: tomorrow . Instructions / Follow-Up Instructions / Follow-Up MEDICATIONS: * Resume previous medications unless instructed otherwise by your surgeon. * Always take pain medication on a full stomach or with food to avoid upset stomach. * Do not drink alcohol or drive while taking narcotics. * Ibuprofen or Tylenol may be taken if narcotic not needed. SPECIAL CARE INSTRUCTIONS: __ None _X_ Keep extremity elevated and iced x 48 hours; apply ice 20-30 minutes 8-10 times/day. May remove at night. _X_ Sling (MAY REMOVE AFTER 48 HOURS ONLY TO SHOWER AND FOR THERAPY) _X_24 hrs/day __ Remove at night __ Shoulder Immobilizer __ 24 hrs/day __ Remove at night _X_ Dressing __ Maintain until seen in office, may shower with plastic over site _X_ Remove dressings in 24-48 hours and then may shower _X_ Cover incisions with band-aids after showering _X_ Do not remove steri-strips Call physician if chills or temperature rises above 102 degrees or pain unrelieved by prescribed pain medications at . . Current Hospital Diet Patient's current hospital diet: Discharge Diet Recommended Diet: AHA Diet (Heart Healthy) Procedures Procedures Performed: Right Shoulder Arthroscopy with Extensive Debridement, Rotator Cuff Repair, Open Bicep Tenodesis Pending Studies Studies pending at discharge: no Work Instructions Return To Work: after follow-up Lifting Limitations: NO LIFTING WITH RIGHT ARM Medical Emergencies . Who to Call and When: Medical Emergencies: If at any time you feel your situation is an emergency, please call 911 immediately. . Non-Emergent Contact Non-Emergency issues call your: Primary Care Provider Call Non-Emergent contact if: you have a fever, temperature is above 101.5 . "Provider Documentation" section prepared by Blaise Mcclure. .
[2017-12-13 17:45] VITALS: BP 150/68; PULSE 61; TEMP 36.3; O2SAT 95
[2017-12-13 18:15] VITALS: BP 134/66; PULSE 65; TEMP 36.3; O2SAT 92
--- NOTE | 2017-12-13 19:34 | Anesthesiology Progress Note ---
Anesthesia Post Op Note Date & Time December 13, 2017 at 19:33 Vital Signs Pain Intensity: 2 Vital Signs Past 12 Hours Date Time Temp Pulse Resp B/P (MAP) Pulse Ox O2 Delivery O2 Flow Rate FiO2 12/13/17 18:15 36.3 65 16 134/66 92 Nasal Cannula 12/13/17 17:45 36.3 61 16 150/68 95 Nasal Cannula 12/13/17 17:35 36.5 63 16 151/60 95 Nasal Cannula 2 12/13/17 17:25 67 16 141/60 95 Nasal Cannula 2 12/13/17 17:15 63 17 144/56 95 Room Air 12/13/17 17:05 65 14 152/62 100 Oxymask 10 12/13/17 16:55 70 20 176/70 99 Oxymask 10 12/13/17 16:49 36.0 73 17 158/92 98 Oxymask 10 12/13/17 11:55 37 71 18 110/50 (70) 96 Room Air Notes Mental Status: alert / awake / arousable, participated in evaluation Pt Amnestic to Procedure: Yes Nausea / Vomiting: adequately controlled Pain: adequately controlled Airway Patency, RR, SpO2: stable & adequate BP & HR: stable & adequate Hydration State: stable & adequate Anesthetic Complications: no major complications apparent
--- NOTE | 2017-12-13 20:09 | OPERATIVE REPORT ---
DATE OF OPERATION: 12/13/2017 PREOPERATIVE DIAGNOSIS: Calcific tendonitis of the right shoulder. POSTOPERATIVE DIAGNOSIS: Calcific tendonitis with biceps tendinopathy. PROCEDURE: Right shoulder diagnostic arthroscopy with extensive debridement including removal of calcific tendonitis with a small margin convergence rotator cuff repair and an open subpectoral biceps tenodesis. SURGEON: Hal Catalan DO. TALENT SPECIALIST: Blaise Mcclure PA-C, whose assistance was necessary for retraction and helping with instrumentation and closure. ANESTHESIA: General, with a right interscalene nerve block. COMPLICATIONS: None. CONDITION: Stable to PACU. INDICATIONS: Viola is a pleasant 57-year-old female who has been dealing with chronic right shoulder pain. X-rays and MRI as well as clinical examination were diagnostic for large calcific tendinitis of the shoulder. She was also having a little bit of anterior biceps pain. She elected to undergo arthroscopy. On 12/13/2017, she arrived at [facility] for the above procedure. She was seen in the preoperative holding area, and the operative extremity was identified and signed. She was given the preoperative antibiotic and a right interscalene nerve block. She was taken back to the operating room, laid on table in supine position, and put under general anesthesia. She was put into the beachchair position. The right shoulder was prepped and draped in sterile fashion. Timeout was done. The patient's operative extremity was properly identified. A scope was introduced in the posterior portal. Diagnostic arthroscopy showed no cartilage damage to the humeral head or the glenoid. There was significant fraying of the superior labrum. The biceps tendon was generally intact, but the biceps narciso mechanism was enlarged. There was a little undersurface tearing at the entrance, articular insertion of the supraspinatus. The infraspinatus, teres minor, and subscapularis were all checked and intact. An anterior portal was made. A shaver was used to do a debridement of the intraarticular structures including the labrum and the undersurface of the supraspinatus. The biceps tendon was arthroscopically tenotomized for later tenodesis. The scope was then put into the subacromial space. A lateral portal was made. A shaver was used to do a complete subacromial/subdeltoid bursectomy. Significant time was spent doing the complete extensive debridement of these spaces. An additional anterolateral portal was made. A trocar was used to poke into the tendon, mostly in the area of the infraspinatus. There was a very large area of calcific tendonitis. A shaver was used to resect the calcific tendinitis. Unfortunately, after all the calcific tendonitis was debrided and removed, there was a small hole in the infraspinatus. A Lisbeth cannula was placed on one of the lateral portals. The rotator cuff was then repaired with a single margin convergence FiberWire suture. This gave a nice repair. Multiple pictures were taken. Final diagnostic arthroscopy showed no additional pathology. Time was spent debriding any additional calcific tissue. Arthroscopic instrument removed from the shoulder. Attention was turned to an open biceps tenodesis. A small incision was made over the inferior border of the pectoralis major. Dissection was taken down to the fascia and long head of the biceps tendon, which was delivered out of the wound. The tendon was then whipstitched at the anticipated level of tenodesis, and the remainder of the tendon was discarded. A 5 mm hole was drilled in the bicipital groove, and the biceps tendon was tenodesed with an Arthrex biceps button that was passed through the posterior cortex in a tension slide technique to deliver the tendon into the 5 mm hole. This gave good fixation. The tails were then tied. The wound was then irrigated, closed with 3-0 Vicryl and running 3-0 Monocryl. Steri-strips were placed. Portal sites were closed with 3-0 nylon. She was then placed in a soft dressing and a regular arm sling. She was then extubated, transferred to a [facility], and taken to the postanesthesia care unit in stable condition. She tolerated the procedure well. I attest to the content of the Intraoperative Record and any orders documented therein. Any exception s are noted below.
== END | disposition home or self-care (01) ==
LOC: C.ACU 11:22
PROVIDERS: ATTEND Orthopaedic Surgery
DX: M75.31 Calcific tendinitis of right shoulder (principal); M75.21 Bicipital tendinitis, right shoulder; J44.9 Chronic obstructive pulmonary disease, unspecified; I25.10 Atherosclerotic heart disease of native coronary artery without angina pectoris; I25.2 Old myocardial infarction; Z95.1 Presence of aortocoronary bypass graft; Z86.73 Personal history of transient ischemic attack (TIA), and cerebral infarction without residual deficits; Z87.891 Personal history of nicotine dependence; Z98.1 Arthrodesis status; Z90.49 Acquired absence of other specified parts of digestive tract; Z83.3 Family history of diabetes mellitus

== ENCOUNTER 2018-07-27 09:51 | Observation (INO) ==
[2018-07-27 10:37] LABS: Hematocrit (blood only) 38.7 % (37-47); Hemoglobin 12.4 g/dL (12.0-16.0); Immature Granulocytes # (auto) 0.01 K/uL (0.00-0.02); Immature Granulocytes % (auto) 0.1 %; Lymphocytes # (auto) 0.72 K/uL (1.2-3.4); Lymphocytes % (auto) 10.5 %; Mean Corpuscular Volume 86.4 fL (80-100); Mean Platelet Volume 9.7 fL (7.4-10.4); Monocytes # (auto) 0.78 K/uL (0.11-0.59); Monocytes % (auto) 11.4 %; Neutrophils # (auto) 5.32 K/uL (1.4-6.5); Platelet Count 231 K/uL (130-400); RDW Coefficient of Variation 15.6 % (11.5-14.5); RDW Standard Deviation 50.2 fL (36.4-46.3); Red Blood Count 4.48 M/uL (4.2-5.4); White Blood Count 6.83 K/uL (4.8-10.8)
[2018-07-27 10:39] LABS: Appearance Urine Clear (Clear); Bacteria Urine Automated Negative (Negative); Bilirubin Urine Negative (Negative); Color Urine Yellow; Glucose Urine UA Negative (Negative); Ketones Urine Negative (Negative); Leukocyte Esterase Urine Negative (Negative); Nitrite Urine Negative (Negative); Protein Urine Negative (Negative); Specific Gravity Urine 1.013 (1.000-1.030); Urobilinogen Urine Negative (Negative); WBC Urine Automated 0 /hpf (0-5); pH Urine 6.5 (4.5-7.5)
[2018-07-27 10:51] LABS: Alanine Aminotransferase 20 U/L (12-78); Albumin Level 3.9 gm/dl (3.4-5.0); Aspartate Aminotransferase 20 U/L (15-37); BUN Creatinine Ratio 20.7 (10-20); Blood Urea Nitrogen 21 mg/dl (7-18); Calcium 8.9 mg/dl (8.5-10.1); Carbon Dioxide 24 mmol/L (21-32); Chloride 104 mmol/L (98-107); Creatinine Clr Calc Pharmacy 56.9 ml/min; Est GFR (African American) 71.1; Est GFR (Non-African American) 61.3; Glucose 86 mg/dl (70-99); Potassium 4.1 mmol/L (3.5-5.1); Sodium 138 mmol/L (136-145)
--- NOTE | 2018-07-27 10:51 | XRay Report ---
XR chest 1V portable CLINICAL HISTORY: Chest Pain COMPARISON STUDY: Chest CT May 30, 2017 and chest radiograph October 11, 20122016. FINDINGS: There are median sternotomy wires and mediastinal surgical clips. There is no pneumothorax or pleural effusion. No consolidation or evidence for pulmonary edema. The appearance of the chest is unchanged. Minimal left basilar opacity favors atelectasis. IMPRESSION: No acute cardiopulmonary findings. Electronically signed by: Jose Wakefield M.D. 07/27/2018 10:50 AM
[2018-07-27 10:55] LABS: Alkaline Phosphatase 103 U/L (45-117); Bilirubin,Total 0.6 mg/dl (0.1-1); Globulin 3.8 gm/dl (2.5-4.0); Total Protein 7.7 gm/dl (6.4-8.2); Troponin I < 0.015 ng/ml (0-0.045)
[2018-07-27] MEDS ORDERED: ACETAMINOPHEN 500 MG TAB PO STA (12:01)
--- NOTE | 2018-07-27 14:09 | History & Physical Report ---
Date of Service July 27, 2018 Assessment & Plan (1) Left sided chest pain: 58 y/o F Hx HTN, HLD, carotid disease, COPD, active smoker, DM II, chronic pain, nephrolithiasis, GERD, migraines, depression, chronic pain, CAD - MS, CABG. Presents with intermittent central CP for 1 week. She describes episodes of central or upper chest pain radiating to her L arm. Accompanied by nausea and SOB. The episodes may last 1-2 minutes and occur at rest. She does not state that they have increased in frequency. The pt was at her psychiatrists office this AM when she had an episode of CP. He offered to call an ambulance but the pt declined. She then called her primary MD for an appt and was directed to the ER. She is asymptomatic at the time of admission. 1) CP - documented CAD - concern for unstable angina. We will order a stress test which has not been undertaken for > 3 yrs. She will be evaluated by cardiology. We will continue ASA, lipitor. 2) DM II - placed on a SS 3) HTN/HLD - cont Verapimil, Lipitor 4) Migraines - had a LANCE when she arrived - reponds to Tramadol mostly - provided PRN. Cont Verapamil. 5) Depression - cont Quetiapine 6) Smoking - does not show any interest in cessation despite extensive vascular disease Full code - Heparin prophylaxis Total time for this admit including review of labs, meds, imaging, records - discussion with pt and ER attending - 37 min Present on Admission?: Yes History of Present Illness Chief Complaint: Intermittent CP Primary Care Provider: Julio César Diop MD 58 y/o F Hx HTN, HLD, carotid disease, COPD, active smoker, DM II, chronic pain , nephrolithiasis, GERD, migraines, depression, chronic pain, CAD - MS, CABG. Presents with intermittent central CP for 1 week. She describes episodes of central or upper chest pain radiating to her L arm. Accompanied by nausea and SOB. The episodes may last 1-2 minutes and occur at rest. She does not state that they have increased in frequency. The pt was at her psychiatrists office this AM when she had an episode of CP. He offered to call an ambulance but the pt declined. She then called her primary MD for an appt and was directed to the ER. She is asymptomatic at the time of admission. PMH: 1) CAD - inferior MS 2009 - JONATHAN to L circ, 4V CABG 08/2010, graft stenosis 2010. 2) DM II 3) HTN 4) HLD 5) DM II 6) COPD 7) Migraines 8) COPD 9) Nephrolithiasis 10) GERD 11) Carotid stenosis Surgical: 1) CABG 4V 2010 Family: HTN, DM II, CAD Social: Smokes 1 pack daily Does not drink alcohol Allergies Allergy/AdvReac Type Severity Reaction Status Date / Time nitrofurantoin Allergy Intermediate HIVES Verified 07/27/18 12:54 senna Allergy Intermediate HIVES from Verified 07/27/18 12:54 X-Prep, TAKES SENOKOT AT HOME Iodinated Contrast- Oral and Allergy Mild RASH Verified 07/27/18 12:54 IV Dye Beta-Blockers AdvReac Intermediate HYPOTENSION Verified 07/27/18 12:54 (Beta-Adrenergic Bloc rizatriptan AdvReac Intermediate NAUSEA AND Verified 07/27/18 12:54 VOMITING zolpidem AdvReac Intermediate NIGHTMARES Verified 07/27/18 12:54 sumatriptan AdvReac Mild WORSENED Verified 07/27/18 12:54 HEADACHE Home Medications Home Medications Medication Instructions Recorded Confirmed Type atorvastatin 80 mg tablet 80 mg PO HS 06/12/18 07/27/18 History bupropion HCl SR 150 mg tablet,12 150 mg PO QAM 06/12/18 07/27/18 History hr sustained-release naproxen sodium 220 mg tablet 220 mg PO Q8 PRN tab 06/12/18 07/27/18 History quetiapine 100 mg tablet 100 mg PO HS tab 06/12/18 07/27/18 History quetiapine 25 mg tablet 25 mg PO BID PRN 06/12/18 07/27/18 History tramadol 50 mg tablet 50 mg PO Q6H PRN 06/12/18 07/27/18 History verapamil ER 240 mg 24 hr 240 mg PO HS 06/12/18 07/27/18 History capsule,extended release aspirin [Aspirin Low Dose] 81 mg PO HS 07/27/18 07/27/18 History baclofen 10 mg PO HS 07/27/18 07/27/18 History cholecalciferol (vitamin D3) 1,000 unit PO QAM 07/27/18 07/27/18 History [Vitamin D3] coenzyme Q10 [Co Q-10] 200 mg PO HS 07/27/18 07/27/18 History cyanocobalamin (vitamin B-12) 1,000 mcg PO QAM 07/27/18 07/27/18 History [Vitamin B-12] gabapentin 400 mg PO TID 07/27/18 07/27/18 History melatonin 10 mg PO HS PRN 07/27/18 07/27/18 History multivitamin [One Daily 1 tab PO QAM 07/27/18 07/27/18 History Multivitamin] omega [id number]-fish oil [Fish Oil] 1 cap PO BID 07/27/18 07/27/18 History onabotulinumtoxinA [Botox] 100 unit SUBCUT Q3M 07/27/18 07/27/18 History pantoprazole 40 mg PO QAM 07/27/18 07/27/18 History teriparatide [Forteo] 20 mcg SUBCUT QAM 07/27/18 07/27/18 History Past Med/Surg History Medical History Migraine headache (Chronic) Social History Feels Safe at Home: Yes Smoking Status: Current every day smoker Review of Systems General: Denies fevers, night sweats, weight loss, weight gain ENT: Denies throat pain, nasal congestion Eyes: Denies acute visual impairment, eye pain Cardiovascular: Denies palpitations, PND, orthopnea - CP radiating into L arm as above Respiratory: Denies productive cough, wheezing - SOB described with CP GI: Denies vomiting, diarrhea, constipation, GI bleeding - describes nausea with CP : Denies dysuria, hesitancy, frequency, hematuria Neuro: Denies headache, lightheadedness, syncope, unilateral weakness, acute loss of balance, memory loss Endocrine: Denies polydypsia, polyuria Heme: Denies unexplained bruising Skin: Denies acute rash or ulcers Physical Exam 2 Vital Signs (Past 24 Hours): Last Vital Signs Temp 36.8 C 07/27/18 09:58 Pulse 72 07/27/18 13:56 Resp 25 H 07/27/18 13:56 BP 145/77 H 07/27/18 13:56 Pulse Ox 97 07/27/18 11:30 Physical Exam: General: AAO x 3, no distress ENT: No erythema or exudates, no thrush Eyes: YANETH, EOMI Head and neck: Normocephalic, atruamatic, No JVD, neck is supple. Chest/heart: Nontender, S1,2, RRR, no murmurs, no gallops Lungs: CTAB, no wheezing or crackles Abdomen: Nontender, nondistended, BS+ Neuro: AAO x 3, speech is clear, no unilateral weakness or loss of sensation, coordination intact Musculoskeletal: No joint inflammation, muscle tenderness, FROM Skin: No acute rashes or ulcers Extremities: No clubbing, cyanosis, edema Results & Data Diagnostic Findings EKG: Sinus, incomplete RBBB, no evidence of acute ischemia Code Status & VTE Plan Code Status Full VTE Prophylaxis Plan VTE Prophylaxis will be ordered: Yes
[2018-07-27] MEDS ORDERED: NICOTINE 14 MG/24 HR PATCH TD ONE (14:41)
[2018-07-27] MEDS ORDERED: NON-FORMULARY MEDICATION (Melatonin [Melatonin] 3 MG) PO PRN (15:58)
[2018-07-27] MEDS ORDERED: MAGNESIUM HYDROXIDE SUSP 30 ML UDC PO PRN (15:58)
[2018-07-27] MEDS ORDERED: ONDANSETRON INJ 2 MG/ML 2 ML VIAL IV PRN (15:58)
[2018-07-27] MEDS ORDERED: ACETAMINOPHEN 325 MG TAB PO PRN (15:58)
[2018-07-27] MEDS ORDERED: POLYETHYLENE (MIRALAX) 17 GM PACK PO PRN (15:58)
[2018-07-27] MEDS ORDERED: NITROGLYCERIN SL 0.4 MG/TAB TAB SL PRN (15:58)
[2018-07-27] MEDS ORDERED: ALUMINUM/MAGNESIUM SUSP 30 ML UDC PO PRN (15:58)
[2018-07-27] MEDS ORDERED: QUETIAPINE FUMARATE 25 MG TABLET PO PRN (15:58)
[2018-07-27] MEDS ORDERED: MoRPHine SULFATE 2 MG/ML CARP IV PRN (15:58)
--- NOTE | 2018-07-27 16:29 | Emergency Department Note ---
Entered by Eulalia Snowden acting as a scribe for Remington Alonso MD ED Provider Note CHIEF COMPLAINT: Chest pain HISTORY OF PRESENT ILLNESS: The patient is a 58 year old female who presents to the Emergency Room with complaints of intermittent chest pains beginning 1 week ago. She notes the pain is sharp, a 6/10 in severity, and will come for a few seconds at a time. The patient notes this pain is located in the left side of her chest, her left arm, and her neck. She reports she does not experience the pain when pressing on her chest. The patient states her symptoms today began about 3.5 hours ago, and she currently has a "pounding headache." She notes her pain today resolved on its own after about 2 hours. The patient reports she took her nitroglycerin for these symptoms a few days ago, which seemed to relieve the pain. She reports she experiences nausea when this pain comes. The patient denies recent extended travel or any history of blood clots. The patient was referred to the ED by her PCP, Dr. Diop, after her psychiatrist recommended she be seen when he heard of her symptoms. She states she is unsure if she has had recent stress tests. The patient last saw her cardiogloist, Dr. Joya, about 4.5 months ago. Pt denies LOC, fevers, chills, diaphoresis, visual changes, neck pain, breathing difficulties, vomiting, abdominal pain, back pain, melena, hematochezia, urinary symptoms, numbness, weakness, lymphadenopathy, rash, or other complaints. REVIEW OF SYSTEMS: See HPI for pertinent positives and negatives. A total of ten systems were reviewed and were otherwise negative. PMHx/PSHx: CAD. IL. Hx quadruple bypass. Hx stent placement. SOCIAL HISTORY: Patient lives at home. PHYSICAL EXAM: GENERAL: Awake, alert, well-appearing, in no distress HENT: Normocephalic, atraumatic. Oropharynx unremarkable. EYES: Normal conjunctiva. Sclera non-icteric. NECK: Inspection normal. Non-tender. Supple. No nuchal rigidity. FROM. No masses. RESPIRATORY: Clear to auscultation. No wheezes. No rales. Normal respiratory effort. CARDIAC: Normal rate. Normal rhythm. No murmurs. No rubs. Extremities warm and well perfused. Pulses equal. No JVD. GI: Soft, non-distended. No tenderness to palpation. No rebound or guarding. No masses. RECTAL: Deferred. MUSCULOSKELETAL: Atraumatic. Chest examination reveals no tenderness. The back is symmetrical on inspection without obvious abnormality. There is no CVA tenderness to palpation. No joint edema. LOWER EXTREMITIES: Calves are equal size bilaterally and non-tender. No edema. No discoloration. NEURO: Normal sensorium. No sensory or motor deficits noted. SKIN: No rash or jaundice noted. EMERGENCY DEPARTMENT COURSE: 1121: Past medical records reviewed. The patient was evaluated in room C2B by Mino Farrell, the medical student under my direction. 1153: I evaluated the patient in room C2B, and a complete history and physical examination were performed. 1320: Upon reevaluation, the patient is resting. I discussed test results. They verbalized agreement with the treatment plan. 1328: I reviewed the patient's case with Dr. Robles, [facility] cardiology. 1425: Discussed the case with Dr. Moran, [facility] hospitalist. He will evaluate the patient for further management. MEDICAL DECISION MAKING: Triage Nursing notes reviewed. The patient's presentation and history were concerning for chest pain. Etiologies such as cardiac ischemia, myocarditis, pericarditis, aortic dissection, pulmonary embolism, pneumonia, pneumothorax, musculoskeletal, infections, gastrointestinal, as well as others were entertained. The patient was evaluated. Chest x-ray and EKG were unremarkable. The patient had blood work obtained. Her CBC, chemistry panel and troponin were negative. The patient is a significant cardiac history. The case was discussed with on- call cardiology. Given her significant history it was felt that she should have a formal cardiac evaluation in the hospital given the intermittent chest pain. Consultation was placed with internal medicine. The patient was evaluated in the ER for further management. IMPRESSION: Left-sided chest pain. PLAN: Admitted The scribe's documentation has been prepared under my direction and personally reviewed by me in its entirety. I confirm that the note above accurately reflects all work, treatment, procedures, and medical decision making performed by me. 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 Results & Data Vital Signs Vital Signs - 24 hr 07/27/18 09:58 07/27/18 10:14 07/27/18 10:23 Temperature 36.8 C Temperature Source Oral Sepsis Recent Fever Within 48 Hours No Sepsis New/Unexplained Change in Mental Status No Sepsis Action Taken by Nursing No Action Required Pulse Rate 85 81 Pulse Rate [Left Radial] 80 Pulse Rhythm [Left Radial] Regular Pulse Strength [Left Radial] Normal Respiratory Rate 20 25 H 18 Respiratory Effort / Characteristics Non-Labored Respiratory Depth Normal Respiratory Pattern Blood Pressure 159/84 H Blood Pressure [Left Arm] Blood Pressure Mean 109 Blood Pressure Mean [Left Arm] Pulse Oximetry 97 97 98 Oxygen Delivery Method Room Air Room Air 07/27/18 10:30 07/27/18 11:00 07/27/18 11:30 Temperature Temperature Source Sepsis Recent Fever Within 48 Hours Sepsis New/Unexplained Change in Mental Status Sepsis Action Taken by Nursing Pulse Rate 79 73 72 Pulse Rate [Left Radial] Pulse Rhythm [Left Radial] Pulse Strength [Left Radial] Respiratory Rate 19 19 16 Respiratory Effort / Characteristics Respiratory Depth Respiratory Pattern Blood Pressure Blood Pressure [Left Arm] Blood Pressure Mean Blood Pressure Mean [Left Arm] Pulse Oximetry 96 97 Oxygen Delivery Method 07/27/18 12:21 07/27/18 12:30 07/27/18 13:00 Temperature Temperature Source Sepsis Recent Fever Within 48 Hours Sepsis New/Unexplained Change in Mental Status Sepsis Action Taken by Nursing Pulse Rate 81 72 72 Pulse Rate [Left Radial] Pulse Rhythm [Left Radial] Pulse Strength [Left Radial] Respiratory Rate 14 16 22 Respiratory Effort / Characteristics Respiratory Depth Respiratory Pattern Blood Pressure Blood Pressure [Left Arm] Blood Pressure Mean Blood Pressure Mean [Left Arm] Pulse Oximetry Oxygen Delivery Method 07/27/18 13:30 07/27/18 13:56 07/27/18 16:05 Temperature 36.9 C Temperature Source Oral Sepsis Recent Fever Within 48 Hours Sepsis New/Unexplained Change in Mental Status Sepsis Action Taken by Nursing Pulse Rate 68 72 Pulse Rate [Left Radial] 78 Pulse Rhythm [Left Radial] Regular Pulse Strength [Left Radial] Normal Respiratory Rate 14 25 H 20 Respiratory Effort / Characteristics Non-Labored Spontaneous Respiratory Depth Normal Respiratory Pattern Regular Blood Pressure 145/77 H Blood Pressure [Left Arm] 144/81 H Blood Pressure Mean 99 Blood Pressure Mean [Left Arm] 102 Pulse Oximetry 97 Oxygen Delivery Method Room Air Home Medications Current Medication List: was personally reviewed by me Laboratory Data Attestation: I reviewed the patient's lab results. Result diagrams: 07/27/18 10:18 07/27/18 10:18 Lab Results 07/27/18 07/27/18 07/27/18 Range/Units 10:10 10:18 10:18 WBC 6.83 (4.8-10.8) K/uL RBC 4.48 (4.2-5.4) M/uL Hgb 12.4 (12.0-16.0) g/dL Hct 38.7 (37-47) % MCV 86.4 (80-100) fL MCH 27.7 (25-34) pg MCHC 32.0 (32-36) g/dL RDW Std Deviation 50.2 H (36.4-46.3) fL RDW Coeff of Elicia 15.6 H (11.5-14.5) % Plt Count 231 (130-400) K/uL MPV 9.7 (7.4-10.4) fL Immature Gran % (Auto) 0.1 % Neut % (Auto) 78.0 % Lymph % (Auto) 10.5 % [place] % (Auto) 11.4 % Eos % (Auto) 0.0 % Baso % (Auto) 0.0 % Immature Gran # (Auto) 0.01 (0.00-0.02) K/uL Neut # (Auto) 5.32 (1.4-6.5) K/uL Lymph # (Auto) 0.72 L (1.2-3.4) K/uL [place] # (Auto) 0.78 H (0.11-0.59) K/uL Eos # (Auto) 0.00 (0-0.5) K/uL Baso # (Auto) 0.00 (0-0.2) K/uL Sodium 138 (136-145) mmol/L Potassium 4.1 (3.5-5.1) mmol/L Chloride 104 (98-107) mmol/L Carbon Dioxide 24 (21-32) mmol/L Anion Gap 10.0 (3-11) BUN 21 H (7-18) mg/dl Creatinine 1.01 (0.6-1.2) mg/dl Est Cr Clr Drug Dosing 56.9 ml/min Est GFR ( Amer) 71.1 Est GFR (Non-Af Amer) 61.3 BUN/Creatinine Ratio 20.7 H (10-20) Glucose 86 (70-99) mg/dl POC Glucose (70-99) Calcium 8.9 (8.5-10.1) mg/dl Total Bilirubin 0.6 (0.1-1) mg/dl AST 20 (15-37) U/L ALT 20 (12-78) U/L Alkaline Phosphatase 103 (45-117) U/L Troponin I < 0.015 (0-0.045) ng/ml Total Protein 7.7 (6.4-8.2) gm/dl Albumin 3.9 (3.4-5.0) gm/dl Globulin 3.8 (2.5-4.0) gm/dl Albumin/Globulin Ratio 1.0 (0.9-2) Lipase 137 (73-393) U/L Urine Color Yellow Urine Appearance Clear (Clear) Urine pH 6.5 (4.5-7.5) Ur Specific [place] 1.013 (1.000-1.030) Urine Protein Negative (Negative) Urine Glucose (UA) Negative (Negative) Urine Ketones Negative (Negative) Urine Blood Trace H (Negative) Urine Nitrite Negative (Negative) Urine Bilirubin Negative (Negative) Urine Urobilinogen Negative (Negative) Ur Leukocyte Esterase Negative (Negative) Urine WBC (Auto) 0 (0-5) /hpf Urine RBC (Auto) 5-10 H (0-4) /hpf U Hyaline Cast (Auto) 1-5 (0-5) /lpf U Epithel Cells (Auto) 5-10 H (0-5) /lpf Urine Bacteria (Auto) Negative (Negative) 07/27/18 Range/Units 16:09 WBC (4.8-10.8) K/uL RBC (4.2-5.4) M/uL Hgb (12.0-16.0) g/dL Hct (37-47) % MCV (80-100) fL MCH (25-34) pg MCHC (32-36) g/dL RDW Std Deviation (36.4-46.3) fL RDW Coeff of Elicia (11.5-14.5) % Plt Count (130-400) K/uL MPV (7.4-10.4) fL Immature Gran % (Auto) % Neut % (Auto) % Lymph % (Auto) % [place] % (Auto) % Eos % (Auto) % Baso % (Auto) % Immature Gran # (Auto) (0.00-0.02) K/uL Neut # (Auto) (1.4-6.5) K/uL Lymph # (Auto) (1.2-3.4) K/uL [place] # (Auto) (0.11-0.59) K/uL Eos # (Auto) (0-0.5) K/uL Baso # (Auto) (0-0.2) K/uL Sodium (136-145) mmol/L Potassium (3.5-5.1) mmol/L Chloride (98-107) mmol/L Carbon Dioxide (21-32) mmol/L Anion Gap (3-11) BUN (7-18) mg/dl Creatinine (0.6-1.2) mg/dl Est Cr Clr Drug Dosing ml/min Est GFR ( Amer) Est GFR (Non-Af Amer) BUN/Creatinine Ratio (10-20) Glucose (70-99) mg/dl POC Glucose 203 H (70-99) Calcium (8.5-10.1) mg/dl Total Bilirubin (0.1-1) mg/dl AST (15-37) U/L ALT (12-78) U/L Alkaline Phosphatase (45-117) U/L Troponin I (0-0.045) ng/ml Total Protein (6.4-8.2) gm/dl Albumin (3.4-5.0) gm/dl Globulin (2.5-4.0) gm/dl Albumin/Globulin Ratio (0.9-2) Lipase (73-393) U/L Urine Color Urine Appearance (Clear) Urine pH (4.5-7.5) Ur Specific [place] (1.000-1.030) Urine Protein (Negative) Urine Glucose (UA) (Negative) Urine Ketones (Negative) Urine Blood (Negative) Urine Nitrite (Negative) Urine Bilirubin (Negative) Urine Urobilinogen (Negative) Ur Leukocyte Esterase (Negative) Urine WBC (Auto) (0-5) /hpf Urine RBC (Auto) (0-4) /hpf U Hyaline Cast (Auto) (0-5) /lpf U Epithel Cells (Auto) (0-5) /lpf Urine Bacteria (Auto) (Negative) Administered Medications Discontinued Medications Acetaminophen (Tylenol) 1,000 mg PO NOW STA Stop: 07/27/18 12:02 Last Admin: 07/27/18 12:23 Dose: 1,000 mg Nicotine (Nicoderm Cq) Confirm Administered Dose 14 mg TD .STK-MED ONE Stop: 07/27/18 14:42 Last Admin: 07/27/18 14:45 Dose: 14 mg Imaging Data Radiologist's Impression: Radiology results as stated below per my review and the radiologist's interpretation: XR chest 1V portable CLINICAL HISTORY: Chest Pain COMPARISON STUDY: Chest CT May 30, 2017 and chest radiograph October 11, 20122016. FINDINGS: There are median sternotomy wires and mediastinal surgical clips. There is no pneumothorax or pleural effusion. No consolidation or evidence for pulmonary edema. The appearance of the chest is unchanged. Minimal left basilar opacity favors atelectasis. IMPRESSION: No acute cardiopulmonary findings. Electronically signed by: Jose Wakefield M.D. 07/27/2018 10:50 AM ECG Data Attestation: I personally reviewed and interpreted this ECG as follows: Indication: chest pain Rate (beats per minute): 84 Rhythm: normal sinus Findings: + other (nonspecific T-wave abnormality) and + RBBB (incomplete); no PAC, no PVC and no ST elevation Comparison ECG Date: from (11/25/17) Change: no significant change Blood Pressure Blood Pressure Findings: Elevated blood pressure Blood Pressure Disposition: further management by hospitalist Discharge Plan Visit Data *Final* Discharge Date/Time: 07/27/18 15:19 Chief Complaint: Cardiac Assessment Stated Complaint: CHEST PAIN ARM PAIN GOING UP TO NECK ED Provider: Remington Alonso Discharge Problem: Left sided chest pain Patient Disposition: Admitted As Inpatient Discharge Instructions Interventions: ED Discharge Assessment Last Done: 07/27/18 15:19 The scribe's documentation has been prepared under my direction and personally reviewed by me in its entirety. I confirm that the note above accurately reflects all work, treatment, procedures, and medical decision making performed by me.
[2018-07-27 16:32] LABS: INR 0.9 (0.9-1.1); Prothrombin Time 9.6 Seconds (9.0-12.0)
[2018-07-27] MEDS: SODIUM CHLORIDE 0.9% 1000ML 1,000 ML IV SCH (16:58)
[2018-07-27] MEDS: TRAMADOL HCL 50 MG TABLET PO PRN ×2 (17:07→23:03)
[2018-07-27] MEDS: QUETIAPINE FUMARATE 100 MG TABLET PO SCH (20:13)
[2018-07-27] MEDS: GABAPENTIN 400 MG CAP PO SCH (20:14)
[2018-07-27] MEDS: ATORVASTATIN 40 MG TAB PO SCH (20:14)
[2018-07-27] MEDS: BACLOFEN 10 MG TAB PO SCH (20:14)
[2018-07-27] MEDS: HEPARIN SOD 5,000 UNIT/0.5 ML VIAL SQ SCH (20:14)
[2018-07-27] MEDS: ASPIRIN 81 MG ECTAB PO SCH (20:14)
[2018-07-27] MEDS: VERAPAMIL HCL 240 MG TABCR PO SCH (20:14)
[2018-07-28] MEDS: SODIUM CHLORIDE 0.9% 1000ML 1,000 ML IV SCH (04:30)
[2018-07-28] MEDS: HEPARIN SOD 5,000 UNIT/0.5 ML VIAL SQ SCH ×3 (04:41→20:35)
[2018-07-28] MEDS: GABAPENTIN 400 MG CAP PO SCH ×3 (07:59→20:39)
[2018-07-28] MEDS: PANTOprazole 40 MG TAB PO SCH (07:59)
[2018-07-28] MEDS: BuPROPion SR 150 MG TABCR PO SCH (07:59)
[2018-07-28] MEDS: CYANOCOBALAMIN 500 MCG TABLET (VITAMIN B-12) PO SCH (07:59)
--- NOTE | 2018-07-28 10:29 | Cardiology Consultation ---
Date of Consultation July 28, 2018 Assessment & Plan (1) Left sided chest pain: Patient reports intermittent left sided chest discomfort radiating down her left arm and into her left neck over the last week. The discomfort occurs at rest. She has taken sublingual nitro on 3 occasions with relief of her discomfort. ECG shows no acute ischemic changes. One set of troponins was negative. Recommend a repeat troponin level to ensure her enzymes remain negative. If her next set of troponins is negative, will proceed with a dobutamine stress echo to more definitively rule out myocardial ischemia. (2) Coronary artery disease: She has known CAD with history of CABG x4 and PCI. She has been having intermittent left sided chest discomfort over the last week. Her symptoms are atypical in nature in that the discomfort occurs at rest. Given her known CAD, though, recommended further evaluation of myocardial ischemia prior to discharge. Will therefore proceed with a dobutamine stress echo, as long as repeat troponin is negative. Continue aspirin and statin therapy. (3) Benign essential hypertension: Continue verapamil. (4) Dyslipidemia: Continue statin therapy. Supervising Physician Co-Signing Physician Notes Patient was seen and examined and discussed Mary. Agree with above. I did supervise the pharmacologic stress test today, I stopped the test prematurely ( before reaching target heart rate) because her blood pressure was markedly elevated he was having a headache and not feeling well and we had a high pressure rate product. There is no evidence of ischemia with the degree of stress that we at that heart rate. I think that is sufficient to exclude coronary disease as a cause of her recent symptomatology. I would not pursue invasive evaluation at this time. Her blood pressure should be treated to goal however which may help with her symptoms. History of Present Illness Reason for Consultation: Chest pain Requesting Physician: Dr. Moran Attending Physician: Dr. Robles History of Present Illness Patient is a 58-year-old female with multivessel coronary artery disease s/p CABG x4 and PCI, carotid artery stenosis, tobacco abuse, COPD, diabetes mellitus , dyslipidemia, hypertension, chronic migraines, GERD, nephrolithiasis, chronic back pain, and anxiety/depression. Her cardiac history began when she presented with an acute inferior WI on and underwent PCI of her LCx with a JONATHAN. She developed recurrent anginal symptoms, and underwent CABG x4 on 08/27/10 @ [facility] [place] (ALFONSO-LAD, SVG-OM, SVG-ramus, SVG-RCA). Repeat catheterization on 09/12/10 for prolonged chest discomfort showed occlusion of ramus vein graft. Repeat cardiac catheterization 04/06/11 with severe ostial left main stenosis, moderate proximal LAD stenosis, mild atherosclerotic disease of the ramus, subtotal proximal left circumflex stenosis , moderate RCA stenosis, patent vein graft to left circumflex marginal, patent vein graft to distal RCA, patent left internal mammary artery graft to LAD. More recently, patient presented to the ED on 07/27/18 with complaints of intermittent left sided chest discomfort over the previous week. She describes the discomfort as an aching pain that radiates down her left arm and into her left neck at times. The discomfort occurs at rest, typically when lying down or standing. She has associated nausea and shortness of breath. The discomfort lasts seconds to several minutes in duration. On 3 occasions, she took sublingual nitro and on one of these she required 2 sublingual nitro. The discomfort was relieved with the nitro. She has noted the discomfort 3-4 days over the last week. She has not noted any chest discomfort since her hospitalization, but she did note some left arm pain when using the restroom this morning. She believes the discomfort may have occurred because she was lying on her left arm for a period of time prior to using the restroom. She states that she is not very active due to sciatica causing pain in her lower back and left buttock region. She typically lays down most of the day due to the discomfort. She does not experience any chest, arm, or jaw discomfort when she is ambulating. She denies orthopnea, PND, or edema. She denies palpitations, syncope, or presyncope. She reports occasional bright red blood in her stool secondary to bleeding hemorrhoids. She denies melena or hematuria. She denies cerebrovascular symptoms. She states that with her prior PCI and CABG, she noted right arm discomfort. Review of Systems: As noted in HPI. All other 10 point ROS are reviewed and otherwise negative at this time. Social history: She smokes almost 1 ppd. She denies alcohol or illicit drug use. She lives at home alone. Allergies Allergy/AdvReac Type Severity Reaction Status Date / Time nitrofurantoin Allergy Intermediate HIVES Verified 07/27/18 12:54 senna Allergy Intermediate HIVES from Verified 07/27/18 12:54 X-Prep, TAKES SENOKOT AT HOME Iodinated Contrast- Oral and Allergy Mild RASH Verified 07/27/18 12:54 IV Dye Beta-Blockers AdvReac Intermediate HYPOTENSION Verified 07/27/18 12:54 (Beta-Adrenergic Bloc rizatriptan AdvReac Intermediate NAUSEA AND Verified 07/27/18 12:54 VOMITING zolpidem AdvReac Intermediate NIGHTMARES Verified 07/27/18 12:54 sumatriptan AdvReac Mild WORSENED Verified 07/27/18 12:54 HEADACHE Home Medications Home Medications Medication Instructions Recorded Confirmed Type atorvastatin 80 mg tablet 80 mg PO HS 06/12/18 07/27/18 History bupropion HCl SR 150 mg tablet,12 150 mg PO QAM 06/12/18 07/27/18 History hr sustained-release naproxen sodium 220 mg tablet 220 mg PO Q8 PRN tab 06/12/18 07/27/18 History quetiapine 100 mg tablet 100 mg PO HS tab 06/12/18 07/27/18 History quetiapine 25 mg tablet 25 mg PO BID PRN 06/12/18 07/27/18 History tramadol 50 mg tablet 50 mg PO Q6H PRN 06/12/18 07/27/18 History verapamil ER 240 mg 24 hr 240 mg PO HS 06/12/18 07/27/18 History capsule,extended release aspirin [Aspirin Low Dose] 81 mg PO HS 07/27/18 07/27/18 History baclofen 10 mg PO HS 07/27/18 07/27/18 History cholecalciferol (vitamin D3) 1,000 unit PO QAM 07/27/18 07/27/18 History [Vitamin D3] coenzyme Q10 [Co Q-10] 200 mg PO HS 07/27/18 07/27/18 History cyanocobalamin (vitamin B-12) 1,000 mcg PO QAM 07/27/18 07/27/18 History [Vitamin B-12] gabapentin 400 mg PO TID 07/27/18 07/27/18 History melatonin 10 mg PO HS PRN 07/27/18 07/27/18 History multivitamin [One Daily 1 tab PO QAM 07/27/18 07/27/18 History Multivitamin] omega 3-xco-hcj-fish oil [Fish Oil] 1 cap PO BID 07/27/18 07/27/18 History onabotulinumtoxinA [Botox] 100 unit SUBCUT Q3M 07/27/18 07/27/18 History pantoprazole 40 mg PO QAM 07/27/18 07/27/18 History teriparatide [Forteo] 20 mcg SUBCUT QAM 07/27/18 07/27/18 History Patient History Medical History Migraine headache (Chronic) Social History Current Living Situation: Alone Other Information That Helps Us Care for You: No Feels Safe at Home: Yes Safety Concerns: Feels Safe At This Time Smoking Status: Current every day smoker Tobacco Type: cigarettes Cigarettes per Day: 20 Hx Alcohol Use: No Hx Substance Use: No Beliefs That Will Affect Care: None Preferred Language: Macedonian Communication Ability: Effective Private Duty Aide Required: No Physical Exam 2 Vital Signs (Past 24 Hours): Last Vital Signs Temp 36.8 C 07/28/18 07:51 Pulse 96 H 07/28/18 07:51 Resp 18 07/28/18 07:51 BP 142/69 H 07/28/18 07:51 Pulse Ox 99 07/28/18 07:51 Constitutional: Alert, oriented, in no acute distress HEENT: Head is atraumatic and normocephalic. EOMs intact. Sclera anicteric. Face is symmetric. No perioral cyanosis. Mucous membranes moist. Neck: Supple, no JVD Pulmonary: Normal respiratory effort, clear to auscultation bilaterally Cardiac: Regular rate and rhythm, normal S1 and S2, no gallops, no rubs, no murmurs Extremities: No clubbing, cyanosis, or edema. Pulses 2+ and symmetric Abdomen: Normal bowel sounds, soft, non-tender, no abdominal mass palpated Skin: Normal skin color, turgor, and pigmentation, no rash, no skin lesions Neurological: Oriented to person, place, and time Results & Data Diagnostic Findings ECG: Normal sinus rhythm at 84 bpm. Incomplete right bundle branch block. Nonspecific T wave abnormality. CXR: No acute cardiopulmonary findings.
[2018-07-28] MEDS ORDERED: Nursing to Pharmacy Communication ONE ×2 (11:40→17:54)
[2018-07-28] MEDS: MELOXICAM 7.5 MG TAB PO SCH (12:28)
[2018-07-28] MEDS ORDERED: ATROPINE SULFATE 0.1 MG/ML 10ML SYR IV ONE ×2 (14:33)
[2018-07-28] MEDS ORDERED: DOBUTamine HCL 12.5 MG/ML 20 ML VIAL IV ONE (14:33)
[2018-07-28] MEDS ORDERED: METOPROLOL TARTRATE 1 MG/ML VIAL IV ONE ×2 (14:33)
[2018-07-28] MEDS: TRAMADOL HCL 50 MG TABLET PO PRN (15:28)
--- NOTE | 2018-07-28 18:02 | Hospitalist Progress Note ---
Date of Service July 28, 2018 Assessment & Plan (1) Dyslipidemia: (2) Benign essential hypertension: (3) Coronary artery disease: (4) Left sided chest pain: (5) Migraine headache: 1) Left sided chest pain: 58 y/o F Hx HTN, HLD, carotid disease, COPD, active smoker, DM II, chronic pain , nephrolithiasis, GERD, migraines, depression, chronic pain, CAD - [place], CABG. was admitted on 07/27/2018 with intermittent central CP chest pain , hx of CAD concern for unstable angina. cardio inout appreciated continue ASA, lipitor Dobutamine stress test was done, was inconclusive because of accelerated blood pressure > 200 DM II - placed on a SS HTN/HLD - cont Verapimil, Lipitor Migraines - had a LANCE when she arrived - reponds to Tramadol mostly - provided PRN. Cont Verapamil. Depression - cont Quetiapine Smoking , declined cessation despite extensive vascular disease Continue current care, DVT prophylaxis ordered, hydralazine PRN for accelerated hypertension, Subjective no cp now no other c/o Review of Systems Constitutional: negative weakness, or fatigue Respiratory: no cough, sputum, wheezing, or dyspnea on exertion Cardiac: No chest pain, No orthopnea, No PND, No claudication, No palpitations , Abdomen: No pain, No nausea, No vomiting, No diarrhea, No constipation, No GI bleeding Musculoskeletal: No joint pain, No muscle pain, No swelling, No calf pain, No problem reported : No dysuria, No urinary frequency, No incontinence, No hematuria Neurologic: No paralysis, No weakness, No numbness/tingling, No vertigo, No balance problems Psychiatric: No depression symptoms, No anhedonism, Heme: No abnormal bleeding/bruising, No clotting problems, Skin: No rash, No itch, No new/changing skin lesions, No color change, No bleeding Physical Exam 2 Vital Signs (Past 24 Hours): Last Vital Signs Temp 36.5 C 07/28/18 15:21 Pulse 65 07/28/18 15: Resp 18 07/28/18 15:21 BP 158/85 H 07/28/18 15:21 Pulse Ox 96 07/28/18 15:21 Physical Exam: General Appearance: WD/WN, no apparent distress, Eyes: normal inspection, PERRL, EOMI, sclerae normal ENT: normal ENT inspection, hearing grossly normal, pharynx normal Neck: supple, no adenopathy, thyroid normal, no JVD, no carotid bruits, trachea midline Respiratory/Chest: chest non-tender, normal breath sounds, no respiratory distress, no accessory muscle use, breath sounds, rales, wheezing Cardiovascular: regular rate, rhythm, no JVD, no murmur Abdomen: normal bowel sounds, non tender, soft, no organomegaly, Extremities: normal range of motion, non-tender, normal inspection, no pedal edema, no calf tenderness, normal capillary refill , pelvis stable, joint has no limited range of motion, capillary refill is normal, no cyanosis clubbing Neurologic/Psychiatric: wheel 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
[2018-07-28] MEDS ORDERED: HydrALAZINE HCL 20 MG/ML VIAL IV PRN (18:03)
[2018-07-28] MEDS ORDERED: NICOTINE 14 MG/24 HR PATCH TD SCH (20:00)
[2018-07-28] MEDS: ASPIRIN 81 MG ECTAB PO SCH (20:35)
[2018-07-28] MEDS: QUETIAPINE FUMARATE 100 MG TABLET PO SCH (20:37)
[2018-07-28] MEDS: VERAPAMIL HCL 240 MG TABCR PO SCH (20:37)
[2018-07-28] MEDS: BACLOFEN 10 MG TAB PO SCH (20:38)
[2018-07-28] MEDS: ATORVASTATIN 40 MG TAB PO SCH (20:38)
[2018-07-29] MEDS: HEPARIN SOD 5,000 UNIT/0.5 ML VIAL SQ SCH (05:54)
[2018-07-29] MEDS: GABAPENTIN 400 MG CAP PO SCH (08:15)
[2018-07-29] MEDS: BuPROPion SR 150 MG TABCR PO SCH (08:15)
[2018-07-29] MEDS: MELOXICAM 7.5 MG TAB PO SCH (08:16)
[2018-07-29] MEDS: CYANOCOBALAMIN 500 MCG TABLET (VITAMIN B-12) PO SCH (08:16)
[2018-07-29] MEDS: PANTOprazole 40 MG TAB PO SCH (08:16)
--- NOTE | 2018-07-29 15:25 | Discharge Summary ---
Date of Service July 29, 2018 Admission HPI Per Admitting Provider 58 y/o F Hx HTN, HLD, carotid disease, COPD, active smoker, DM II, chronic pain , nephrolithiasis, GERD, migraines, depression, chronic pain, CAD - [place], CABG. Presents with intermittent central CP for 1 week. She describes episodes of central or upper chest pain radiating to her L arm. Accompanied by nausea and SOB. The episodes may last 1-2 minutes and occur at rest. She does not state that they have increased in frequency. The pt was at her psychiatrists office this AM when she had an episode of CP. He offered to call an ambulance but the pt declined. She then called her primary MD for an appt and was directed to the ER. She is asymptomatic at the time of admission. PMH: 1) CAD - inferior CA 2009 - JONATHAN to L circ, 4V CABG 08/2010, graft stenosis 2010. 2) DM II 3) HTN 4) HLD 5) DM II 6) COPD 7) Migraines 8) COPD 9) Nephrolithiasis 10) GERD 11) Carotid stenosis Surgical: 1) CABG 2010 Family: HTN, DM II, CAD Social: Smokes 1 pack daily Does not drink alcohol Principal Diagnosis no Discharge Exam General Appearance: WD/WN, no apparent distress, Eyes: normal inspection, PERRL, EOMI, sclerae normal ENT: normal ENT inspection, hearing grossly normal, pharynx normal Neck: supple, no adenopathy, thyroid normal, no JVD, no carotid bruits, trachea midline Respiratory/Chest: chest non-tender, normal breath sounds, no respiratory distress, no accessory muscle use, breath sounds, rales, wheezing Cardiovascular: regular rate, rhythm, no JVD, no murmur Abdomen: normal bowel sounds, non tender, soft, no organomegaly, Extremities: normal range of motion, non-tender, normal inspection, no pedal edema, no calf tenderness, normal capillary refill , pelvis stable, joint has no limited range of motion, capillary refill is normal, no cyanosis clubbing Neurologic/Psychiatric: 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 nml as tested, no motor/sensory deficits, alert, normal mood/affect, oriented x 3 Skin: normal color, warm/dry, no rash Lymphatic: no adenopathy Discharge Data Allergies Allergy/AdvReac Type Severity Reaction Status Date / Time nitrofurantoin Allergy Intermediate HIVES Verified 07/27/18 12:54 senna Allergy Intermediate HIVES from Verified 07/27/18 12:54 X-Prep, TAKES SENOKOT AT HOME Iodinated Contrast- Oral and Allergy Mild RASH Verified 07/27/18 12:54 IV Dye Beta-Blockers AdvReac Intermediate HYPOTENSION Verified 07/27/18 12:54 (Beta-Adrenergic Bloc rizatriptan AdvReac Intermediate NAUSEA AND Verified 07/27/18 12:54 VOMITING zolpidem AdvReac Intermediate NIGHTMARES Verified 07/27/18 12:54 sumatriptan AdvReac Mild WORSENED Verified 07/27/18 12:54 HEADACHE Consultations 07/27/18 13:39 ED Decision to Admit Stat 07/27/18 15:58 Consult Cardiology Routine Hospital Course (1) Dyslipidemia: (2) Benign essential hypertension: (3) Coronary artery disease: (4) Left sided chest pain: (5) Migraine headache: 1) Left sided chest pain: 58 y/o F Hx HTN, HLD, carotid disease, COPD, active smoker, DM II, chronic pain , nephrolithiasis, GERD, migraines, depression, chronic pain, CAD - [place], CABG. was admitted on 07/27/2018 with intermittent central CP chest pain , hx of CAD concern for unstable angina. cardio inout appreciated continue ASA, lipitor Dobutamine stress test was done, was inconclusive because of accelerated blood pressure > 200. This morning blood pressure is getting better, per cardiology, there is no evidence of ischemia with the degree of stress that we at that heart rate. they think it is sufficient to exclude coronary disease as a cause of her recent symptomatology. DM II -has been on a SS HTN/HLD - cont Verapimil, Lipitor Migraines - had a LANCE when she arrived - reponds to Tramadol mostly - provided PRN. Cont Verapamil. Depression - cont Quetiapine Smoking , declined cessation despite extensive vascular disease Continue current care, DVT prophylaxis ordered, hydralazine PRN for accelerated hypertension, Subjective upon discharge: Doing well, no chest pain no complaint Labs data upon discharge: Total Time Total Time Spent Total Time Spent (In Minutes): 31 Total Time Includes: Examination of the Patient, Discharge Planning, Medication Reconciliation and Communication With Other Providers Discharge Plan Discharge Items Patient Disposition: Home - Self-Care Reason For Visit: CHEST PAIN Discharge Diagnosis: possible atypical chest pain Condition: Fair Discharge Goals: Decrease discomfort, Diagnostic testing, Improve disease control, Improve function and Increase independence Non-emergency contact: Primary Care Provider and Package Car Driver Call non-emergency contact if: you have any medication questions Diet: Heart Healthy Addtl Provider Instructions: you possible have atypical chest pain you have accelerated HTN you can take nitroglycerin every 5 min for chest pain if have chest pain, can be up to 3 dose, and call 911 in need second dose you need to follow up with your primary care physician in 1 week, - take medication as instructed, never overdose or any misuse, or take with alcohol, because misuse of medicine may cause organ damage or , call me , or your primary care physician if have questions of discharge medicaitons. - call your primary care physician, or go to local emergency room if has any fever/chill, chest pain, shortness of breathing, nausea/vomiting/abdominal pain , facial droop/slurry speech/local weakness, or if has any questions. - fall precaution - diet as instructed - you need to follow up with your subspecialist, such as Dr. Joya Prescriptions: New nitroglycerin [Nitrostat] 0.4 mg Tablet, Sublingual 0.4 mg Sublingual UD PRN (Reason: chest pain) 30 Days Qty: 30 RF: 0 Continue bupropion HCl [Wellbutrin SR] 150 mg tablet sustained-release 12 hr 150 mg PO QAM RF: 0 quetiapine [Seroquel] 100 mg tablet 100 mg PO HS RF: 0 quetiapine [Seroquel] 25 mg tablet 25 mg PO BID PRN (Reason: MOOD) RF: 0 verapamil 240 mg capsule,ext rel. pellets 24 hr 240 mg PO HS RF: 0 atorvastatin [Lipitor] 80 mg tablet 80 mg PO HS RF: 0 tramadol 50 mg tablet 50 mg PO Q6H PRN (Reason: pain) RF: 0 naproxen sodium [Aleve] 220 mg tablet 220 mg PO Q8 PRN (Reason: Pain) RF: 0 multivitamin [One Daily Multivitamin] Tablet 1 tab PO QAM RF: 0 onabotulinumtoxinA [Botox] 100 unit Recon Soln 100 unit subcut Q3M RF: 0 gabapentin 400 mg capsule 400 mg PO TID RF: 0 cyanocobalamin (vitamin B-12) [Vitamin B-12] 1,000 mcg Tablet 1,000 mcg PO QAM RF: 0 aspirin [Aspirin Low Dose] 81 mg Tablet,Delayed Release (Dr/Ec) 81 mg PO HS RF: 0 baclofen 10 mg tablet 10 mg PO HS RF: 0 pantoprazole 40 mg tablet,delayed release (DR/EC) 40 mg PO QAM RF: 0 cholecalciferol (vitamin D3) [Vitamin D3] 1,000 unit Capsule 1,000 unit PO QAM RF: 0 coenzyme Q10 [Co Q-10] 100 mg Capsule 200 mg PO HS RF: 0 teriparatide 20 mcg/dose - 600 mcg/2.4 mL pen injector 20 mcg subcut QAM RF: 0 omega [id number] oil [Fish Oil] 1,000 mg (120 mg-180 mg) Capsule 1 cap PO BID RF: 0 melatonin 10 mg Tablet 10 mg PO HS PRN (Reason: Sleep) RF: 0 Stand-Alone Forms: [facility] Discharge Orders: Discharge Order (Routine); Ordered 07/29/18 Ordered By: Winston Mishra Admission Data Admit Date/Time: 07/27/18 14:17 Attending Provider: Winston Mishra Admit Provider: Vu Moran Primary Care Provider: Julio César Diop Other Providers: Vu Moran ; Robinson Robles Service: Telemetry Medical Other Interventions: Discharge Summary Assessment (RN) Last Done: 07/29/18 12:07 DC Date/Time DO NOT enter until pt leaves facility: 07/29/18 13:24
== END 2018-07-29 13:24 | disposition home or self-care (01) ==
LOC: ED 09:51 → 2S 09:51 → SUATTDRO 14:17 → 2S 15:19

== ENCOUNTER 2021-07-16 15:05 | Observation (INO) ==
--- NOTE | 2021-07-16 15:40 | Emergency Department Note ---
Impression & Plan Hypoxia, COPD exacerbation, Diarrhea, Close exposure to COVID-19 virus ED Provider Note NAME: JULIANA BARAHONA AGE: 61 SEX: F ARRIVES VIA: Ambulance INFORMANT: ED PROVIDER(S): Claus Daniel MD CHIEF COMPLAINT: Cough PLAN: Disposition: Home MEDICAL DECISION MAKING: The patient is a pleasant 61-year-old woman with a past medical history of COPD not on home oxygen, type 2 diabetes, GERD, migraines who presents to the emergency department with worsening cough, congestion shortness of breath with associated nausea diarrhea decreased appetite and oral intake which is been ongoing since last week but became more severe this week. She reports she had a known exposure to COVID-19 through her daughter who see she sees frequently and was symptomatic during . She reports she had a home test (likely antigen test) performed on Tuesday but this was negative. Per report,the patient's O2 saturation upon EMS arrival was 88% on room air and placed on nasal cannula. She did receive a nebulizer treatment in route and felt some improvement in her chest tightness. On arrival patient is uncomfortable but no acute distress, afebrile with O2 saturation 94% on 4 L nasal cannula. She appears clinically dry. She has diffuse wheezes with prolonged expiratory phase. No increased work of breathing at this time. EKG without overt acute ischemia. Chest x-ray negative for acute cardiopulmonary process. WBC and platelets within normal limits. H/H proximal to prior range of values. Chemistry without metabolic acidosis. Electrolytes and LFTs without significant abnormality. LFTs are unremarkable. Troponin negative/undetectable and BNP within normal limits and so PE less likely at this time. Lipase is not elevated. COVID-19 PCR was negative. Influenza PCR was negative. RSV PCR was also negative. Upon reevaluation the patient did report feeling somewhat improved after IV fluid hydration, guaifenesin, dexamethasone and Combivent. However lungs was diffuse wheezes persisting which she reports is not her baseline. She was taken off supplemental O2 and would have a resting O2 saturation of 87% which is not her baseline despite her COPD. Thus, the patient was in agreement with plan for admission for further management. The patient's COVID-19 status is unclear at this time given her close exposure with her daughter and constellation of symptoms however with negative COVID-19 PCR today. Will defer management to admission team. Dr. Del Angel, [facility] hospitalist to evaluate the patient for admission. Triage Nursing notes reviewed and agree them. prior medical records reviewed Vital Signs: reviewed and remarkable for hypoxia. Differential diagnosis: Reactive airway disease, pneumonia, pneumothorax, COPD, CHF, infections, cardiac ischemia, pulmonary embolism, musculoskeletal, gastrointestinal, as well as other pathologies. ER treatment provided: See below. Diagnostics interpreted by me: ECG: Normal sinus rhythm, 84 bpm, no ectopy, ST and T wave abnormality, no overt ST elevation or depression, QTC 482, QRS 98, similar to 06/16/2019. Cardiac Monitoring: An order for continuous cardiac monitoring was placed and demonstrated normal sinus rhythm, 84 bpm, no ectopy. Laboratory studies: see below Imaging studies: See below Consultation(s): Dr. Del Angel [facility] hospitalist to evaluate the patient for admission. HPI: The patient is a pleasant 61-year-old woman with a past medical history of COPD not on home oxygen, type 2 diabetes, GERD, migraines who presents to the emergency department with worsening cough, congestion shortness of breath with associated nausea diarrhea decreased appetite and oral intake which is been ongo ing since last week but became more severe this week. She reports she had a known exposure to COVID-19 through her daughter who see she sees frequently and was symptomatic during . She reports she had a home test (likely antigen test) performed on Tuesday but this was negative. Per report,the patient's O2 saturation upon EMS arrival was 88% on room air and placed on nasal cannula. She did receive a nebulizer treatment in route and felt some improvement in her chest tightness. ROS: See above HPI for pertinent positives & negatives. A total of 10 systems reviewed and were otherwise negative. PAST MEDICAL HISTORY: see Below PAST SURGICAL HISTORY: see Below FAMILY HISTORY:See Below SOCIAL HISTORY: see Below HOME MEDICATIONS: see Below ALLERGIES: see Below VITALS: see Below PHYSICAL EXAMINATION: GENERAL: Awake, alert, fatigued/uncomfortable-appearing, in no distress HENT: Normocephalic, atraumatic. Oropharynx with dry mucous membranes and otherwise unremarkable. EYES: Normal conjunctiva. Sclera non-icteric. NECK: Supple. No nuchal rigidity. FROM. No JVD. RESPIRATORY: Diffuse wheezes throughout with prolonged expiratory phase. No significant increased work of breathing on supplemental oxygen. CARDIAC: Regular rate, normal rhythm. Extremities warm and well perfused. Pulses equal. ABDOMEN: Soft, non-distended. No tenderness to palpation. No rebound or guarding. No masses. RECTAL: Deferred. MUSCULOSKELETAL: Chest examination reveals no tenderness. The back is symmetrical on inspection without obvious abnormality. There is no CVA tenderness to palpation. No joint edema. LOWER EXTREMITIES: Calves are equal size bilaterally and non-tender. No edema. No discoloration. NEURO: Normal sensorium. No sensory or motor deficits noted. SKIN: No rash or jaundice noted. Claus Daniel MD Past Med/Surg History Medical History Benign essential hypertension Bilateral carotid artery disease Bilateral carotid artery disease Bilateral lumbar radiculopathy Bronchitis HX, MOST RECENT WINTER 2019 Cauda equina syndrome PT NOT SURE Colon polyp HX COPD (chronic obstructive pulmonary disease) FOLLOWS DR. HAJI/USES ALBUTEROL "ALMOST EVERY DAY" Coronary artery disease Dyslipidemia Emphysema of lung FOLL[facility] DR[facility] 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 ALVARADO Surgical History H/O heart bypass surgery AUG 2010 > [facility] >QUADRUPLE FOLLOWS DR. FRYE- [facility] H/O unilateral salpingectomy History of back surgery X6, INCLUDING LUMBAR FUSION L4-5 History of section History of cholecystectomy History of colonoscopy History of ectopic SURGERY FOR TUBAL History of hysterectomy History of lithotripsy History of right knee surgery History of shoulder surgery RIGHT History of total knee replacement RIGHT S/P epidural steroid injection caudal epidural steroid injection Family History Daughter Atrial septal defect Son Atrial septal defect Sister Crohn's disease Cancer Family history of [place] (myocardial infarction) Mother Cervical cancer Father Diabetes Coronary heart disease Cancer Brother Nephroblastoma Cancer Grandmother (Maternal) Diabetes Grandmother (Paternal) Diabetes Other No significant family history Social History Smoking Status: Current every day smoker Tobacco Type: Cigarettes Cigarettes Per Day: 18; Second Hand Exposure: Yes; Hx Alcohol Use: No Hx Substance Use: No Preferred Language: Turkmen Communication Ability: Effective Visual Impairment: Limited Hearing Ability: Normal Trim Attacher Required: No Beliefs That Will Affect Care: None marital status: Current Living Situation: Alone current occupational status: disabled Feels Safe at Home: Yes Childhood Exposure to Second-Hand Smoke: Yes Assistive Devices: Denture - Upper, Denture - Lower and Glasses Allergies Allergies Allergy/AdvReac Type Severity Reaction Status Date / Time Iodinated Contrast Media Allergy Unknown RASH Verified 07/16/21 20:31 nitrofurantoin Allergy Unknown HIVES Verified 07/16/21 20:31 senna Allergy Unknown HIVES from Verified 07/16/21 20:31 X-Prep, TAKES SENOKOT AT HOME Beta-Blockers AdvReac Unknown HYPOTENSION Verified 07/16/21 20:31 (Beta-Adrenergic Bloc rizatriptan AdvReac Unknown NAUSEA AND Verified 07/16/21 20:31 VOMITING sumatriptan AdvReac Unknown WORSENED Verified 07/16/21 20:31 HEADACHE zolpidem AdvReac Unknown NIGHTMARES Verified 07/16/21 20:31 Home Meds Home Medications Medication Instructions Recorded Confirmed quetiapine 100 mg tablet (Seroquel) 300 mg PO HS tab 06/12/18 07/16/21 aspirin 81 mg tablet,delayed 81 mg PO HS 07/27/18 07/16/21 release (Aspirin Low Dose) coenzyme Q10 100 mg capsule (Co 200 mg PO HS 07/27/18 07/16/21 Q-10) cyanocobalamin (vitamin B-12) 1,000 mcg PO QAM 07/27/18 07/16/21 1,000 mcg tablet (Vitamin B-12) melatonin 10 mg tablet 10 mg PO HS 07/27/18 07/16/21 multivitamin (One Daily 1 tab PO QAM 07/27/18 07/16/21 Multivitamin) omega 7-xql-ant-fish oil 1,000 mg 1 cap PO BID 07/27/18 07/16/21 (120 mg-180 mg) capsule (Fish Oil) duloxetine 30 mg capsule,delayed 30 mg PO QAM 06/04/19 07/16/21 release (Cymbalta) albuterol sulfate 2.5 mg INHALATION Q4H PRN 06/16/19 07/16/21 gabapentin 600 mg tablet 600 mg PO TID 06/16/19 07/16/21 onabotulinumtoxinA 100 unit 100 unit SUBCUT Q3M 06/16/19 07/16/21 solution for injection (Botox) atorvastatin 80 mg tablet 80 mg PO QPM 10/04/19 07/16/21 budesonide-formoterol HFA 160 2 puff INHALATION BID 12/04/19 07/16/21 mcg-4.5 mcg/actuation aerosol inhaler (Symbicort) lamotrigine 200 mg tablet 200 mg PO HS 12/04/19 07/16/21 bupropion HCl 150 mg tablet,12 hr 150 mg PO BID ea 04/17/20 07/16/21 sustained-release (Wellbutrin SR) cholecalciferol (vitamin D3) 25 2,000 unit PO QAM cap 04/17/20 07/16/21 mcg (1,000 unit) capsule (Vitamin D3) magnesium oxide 400 mg PO QAM 10/30/20 07/16/21 ascorbic acid (vitamin C) 500 mg 500 mg PO QAM 11/20/20 07/16/21 tablet (Vitamin C) sucralfate 1 gram tablet 1 g PO UD PRN 11/20/20 07/16/21 inslzeoebl-fppjsxzpwsjwb-lckzeuwu 1 tab PO BID PRN 04/10/21 07/16/21 50 mg-325 mg-40 mg tablet (Esgic) Previous Rx's Medication Instructions Recorded tramadol 50 mg tablet 50 mg PO Q8H PRN #30 tab 09/25/19 albuterol sulfate 90 mcg/actuation 2 puff INHALATION Q6H PRN #8.5 gm 04/24/20 aerosol inhaler (Ventolin HFA) verapamil 300 mg capsule 24hr 300 mg PO HS #90 cap 11/19/[address],ext.release lidocaine 5 % topical patch 1 patch TOP DAILY PRN #15 ea 02/12/21 roflumilast 500 mcg tablet 500 mcg PO QAM #90 tab 05/15/21 (Daliresp) umeclidinium 62.5 mcg-vilanterol 1 inh INHALATION QAM #60 ea 05/15/21 25 mcg/actuation powdr for inhalation (Anoro Ellipta) lasmiditan 100 mg tablet (Reyvow) 100 mg PO DAILY PRN #8 tab 05/22/21 baclofen 10 mg tablet 10 mg PO HS #30 tab 06/25/21 pantoprazole 40 mg tablet,delayed 40 mg PO QAM #30 tab 06/30/21 release Results & Data (ED) Vital Signs Vital Signs - 24 hr 07/16/21 15:35 07/16/21 15:45 07/16/21 15:56 Temperature 36.7 C 36.7 C Temperature Source Oral Oral Pulse Rate 86 Pulse Rate [Apical] 86 Pulse Rhythm Respiratory Rate 20 17 Respiratory Effort / Characteristics Respiratory Depth Respiratory Pattern Blood Pressure 139/63 Blood Pressure [Right Arm] 136/69 Blood Pressure Mean 88 Blood Pressure Mean [Right Arm] 91 Pulse Oximetry 88 L 88 L 94 Oxygen Delivery Method Room Air Room Air Nasal Cannula Oxygen Flow Rate 4 Sepsis Recent Fever Within 48 Hours Yes Sepsis New/Unexplained Change in Mental Status N/A Sepsis Action Taken by Nursing No Action Required Oxygen Flow Rate - Titration 4 Pulse Oximetry Post Tiitration 93 07/16/21 16:37 07/16/21 16:40 07/16/21 17:44 Temperature Temperature Source Pulse Rate 81 Pulse Rate [Apical] Pulse Rhythm Regular Respiratory Rate 16 Respiratory Effort / Characteristics Respiratory Depth Normal Respiratory Pattern Regular Blood Pressure Blood Pressure [Right Arm] Blood Pressure Mean Blood Pressure Mean [Right Arm] Pulse Oximetry 93 87 L Oxygen Delivery Method Nasal Cannula Nasal Cannula Room Air Oxygen Flow Rate 4 4 Sepsis Recent Fever Within 48 Hours Sepsis New/Unexplained Change in Mental Status Sepsis Action Taken by Nursing Oxygen Flow Rate - Titration 0 Pulse Oximetry Post Tiitration 07/16/21 18:33 07/16/21 19:47 07/16/21 21:03 Temperature Temperature Source Pulse Rate Pulse Rate [Apical] 71 89 97 H Pulse Rhythm Respiratory Rate 18 16 17 Respiratory Effort / Characteristics Non-Labored Spontaneous Respiratory Depth Respiratory Pattern Blood Pressure Blood Pressure [Right Arm] 159/92 H 145/64 H Blood Pressure Mean Blood Pressure Mean [Right Arm] 114 91 Pulse Oximetry 92 96 92 Oxygen Delivery Method Nasal Cannula Nasal Cannula Oxygen Flow Rate 2 2 Sepsis Recent Fever Within 48 Hours Sepsis New/Unexplained Change in Mental Status Sepsis Action Taken by Nursing Oxygen Flow Rate - Titration Pulse Oximetry Post Tiitration Laboratory Data Attestation: I reviewed the patient's lab results. Result diagrams: 07/16/21 16:15 07/16/21 16:15 Lab Results 07/16/21 07/16/21 07/16/21 Range/Units 16:05 16:15 16:15 WBC 4.84 (4.8-10.8) K/uL RBC 4.18 L (4.2-5.4) M/uL Hgb 11.7 L (12.0-16.0) g/dL Hct 37.4 (37-47) % MCV 89.5 (80-100) fL MCH 28.0 (25-34) pg MCHC 31.3 L (32-36) g/dL RDW Std Deviation 50.2 H (36.4-46.3) fL RDW Coeff of Elicia 15.6 H (11.5-14.5) % Plt Count 212 (130-400) K/uL MPV 9.4 (7.4-10.4) fL Immature Gran % (Auto) 0.0 % Neut % (Auto) 67.6 % Lymph % (Auto) 19.8 % [place] % (Auto) 11.6 % Eos % (Auto) 0.6 % Baso % (Auto) 0.4 % Neut # (Auto) 3.27 (1.4-6.5) K/uL Lymph # (Auto) 0.96 L (1.2-3.4) K/uL [place] # (Auto) 0.56 (0.11-0.59) K/uL Eos # (Auto) 0.03 (0-0.5) K/uL Baso # (Auto) 0.02 (0-0.2) K/uL Immature Gran # (Auto) 0.00 (0.00-0.02) K/uL Sodium 142 (136-145) mmol/L Potassium 3.5 (3.5-5.1) mmol/L Chloride 109 H (98-107) mmol/L Carbon Dioxide 27 (21-32) mmol/L Anion Gap 6.0 (3-11) BUN 13 (7-18) mg/dl Creatinine 1.05 (0.6-1.2) mg/dl Est Cr Clr Drug Dosing 54.4 ml/min Est GFR ( Amer) 66.4 ml/min Est GFR (Non-Af Amer) 57.3 ml/min BUN/Creatinine Ratio 12.3 (10-20) Glucose 103 H (70-99) mg/dl Calcium 9.4 (8.5-10.1) mg/dl Phosphorus 3.8 (2.5-4.9) mg/dl Magnesium 2.6 H (1.8-2.4) mg/dl Total Bilirubin 0.3 (0.2-1) mg/dl AST 17 (15-37) U/L ALT 24 (12-78) Alkaline Phosphatase 107 (45-117) U/L Troponin I < 0.015 (0-0.045) ng/ml NT-Pro-B Natriuret Pep 235 (0-900) pg/ml Total Protein 7.4 (6.4-8.2) gm/dl Albumin 3.5 (3.4-5.0) gm/dl Globulin 3.9 (2.5-4.0) gm/dl Albumin/Globulin Ratio 0.9 (0.9-2) Lipase 114 (73-393) U/L SARS-CoV-2 (PCR) NEGATIVE (Negative) Influenza Type A (PCR) Negative (Neg) Influenza Type B (PCR) Negative (Neg) RSV (RT-PCR) Negative (Neg) Administered Medications Discontinued Medications Albuterol (Ipratropium [place]/Albuterol Respimat Inh) 2 puffs INH NOW STA Stop: 07/16/21 15:52 Last Admin: 07/16/21 16:57 Dose: 2 puffs Documented by: [id number] Albuterol (Albut/Ipratrop 3mg/0.5mg Neb 3 Ml Vial) 12 ml NEB ONE ONE Stop: 07/16/21 17:46 Last Admin: 07/16/21 18:32 Dose: 12 ml Documented by: [id number] Dexamethasone Sodium Phosphate (DexamethasonePf 10 Mg/Ml Vial) 10 mg IV NOW ONE Stop: 07/16/21 15:49 Last Admin: 07/16/21 16:53 Dose: 10 mg Documented by: [id number] Guaifenesin (Guaifenesin 600 Mg Tabcr) 600 mg PO NOW STA Stop: 07/16/21 15:49 Last Admin: 07/16/21 16:47 Dose: 600 mg Documented by: [id number] Sodium Chloride (Nss 1000ml) 1,000 mls @ 999 mls/hr IV .Q1H1M ONE Stop: 07/16/21 16:48 Last Infusion: 07/16/21 18:56 Dose: 0 mls/hr Documented by: [id number] Admin: 07/16/21 16:43 Dose: 999 mls/hr Documented by: [id number] Acetaminophen (Ofirmev) 1,000 mg in 100 mls @ 400 mls/hr IV NOW STA Stop: 07/16/21 16:02 Last Infusion: 07/16/21 17:43 Dose: 0 mls/hr Documented by: [id number] Admin: 07/16/21 16:50 Dose: 400 mls/hr Documented by: [id number] Imaging Data Radiologist's Impression: Chest X-Ray 07/16/21 15:49 XR chest 1V portable CLINICAL HISTORY: Chest Pain TECHNIQUE: Single frontal radiograph of the chest was obtained. Comparison: Comparison is made to chest one view 04/27/2019 FINDINGS: No lines and tubes are seen. The cardiomediastinal silhouette is normal. The lungs are clear. No evidence of pleural effusion or pneumothorax. IMPRESSION: No acute chest disease. ACT 112: Negative or not required by law. Electronically signed by: Matthew Perez M.D. 07/16/2021 4:54 PM Discharge Plan Visit Data Stated Complaint: SOB ED Provider: Claus Daniel Discharge Problem: Hypoxia, COPD exacerbation, Diarrhea, Close exposure to COVID-19 virus Prescriptions Prescriptions: No Action quetiapine [Seroquel] 100 mg tablet 300 mg PO HS RF: 0 bupropion HCl [Wellbutrin SR] 150 mg tablet sustained-release 12 hr 150 mg PO BID RF: 0 albuterol sulfate [Ventolin HFA] 90 mcg/actuation HFA aerosol inhaler 2 puff INHALATION Q6H PRN (Reason: Shortness Of Breath) Qty: 8.5 RF: 5 verapamil 300 mg capsule, [address] 300 mg PO HS Qty: 90 RF: 4 Reyvow 100 mg tablet 100 mg PO DAILY PRN (Reason: migraine headache) Qty: 8 RF: 5 baclofen 10 mg tablet 10 mg PO HS Qty: 30 RF: 2 pantoprazole 40 mg tablet,delayed release (DR/EC) 40 mg PO QAM Qty: 30 RF: 0 atorvastatin 80 mg tablet 80 mg PO QPM RF: 0 Anoro Ellipta 62.5-25 mcg/actuation blister with device 1 inh INHALATION QAM Qty: 60 RF: 4 Daliresp 500 mcg tablet 500 mcg PO QAM Qty: 90 RF: 3 tramadol 50 mg tablet 50 mg PO Q8H PRN (Reason: pain) Qty: 30 RF: 0 magnesium oxide 400 mg magnesium tablet 400 mg PO QAM RF: 0 lamotrigine 200 mg tablet 200 mg PO HS RF: 0 budesonide-formoterol [Symbicort] 160-4.5 mcg/actuation HFA aerosol inhaler 2 puff INHALATION BID RF: 0 multivitamin [One Daily Multivitamin] Tablet 1 tab PO QAM RF: 0 cyanocobalamin (vitamin B-12) [Vitamin B-12] 1,000 mcg Tablet 1,000 mcg PO QAM RF: 0 aspirin [Aspirin Low Dose] 81 mg Tablet,Delayed Release (Dr/Ec) 81 mg PO HS RF: 0 coenzyme Q10 [Co Q-10] 100 mg Capsule 200 mg PO HS RF: 0 omega 2-uxj-kfv-fish oil [Fish Oil] 1,000 mg (120 mg-180 mg) Capsule 1 cap PO BID RF: 0 melatonin 10 mg Tablet 10 mg PO HS RF: 0 cholecalciferol (vitamin D3) [Vitamin D3] 25 mcg (1,000 unit) capsule 2,000 unit PO QAM RF: 0 duloxetine [Cymbalta] 30 mg Capsule,Delayed Release(Dr/Ec) 30 mg PO QAM RF: 0 gabapentin 600 mg tablet 600 mg PO TID RF: 0 Botox 100 unit Recon Soln 100 unit subcut Q3M RF: 0 albuterol sulfate 2.5 mg /3 mL (0.083 %) solution for nebulization 2.5 mg inhalation Q4H PRN (Reason: Shortness Of Breath Or Wheezing) RF: 0 sucralfate 1 gram tablet 1 g PO UD PRN (Reason: Abdominal Pain) RF: 0 ascorbic acid (vitamin C) [Vitamin C] 500 mg Tablet 500 mg PO QAM RF: 0 woruomcviv-glvtgveqttgre-fwze [Esgic] 50-325-40 mg tablet 1 tab PO BID PRN (Reason: headache) RF: 0 lidocaine 5 % adhesive patch,medicated 1 patch TOP DAILY PRN (Reason: pain) Qty: 15 RF: 0 Referrals Referrals: Julio César Diop MD [Primary Care Provider] - Discharge Problem: Diarrhea Qualifiers: Diarrhea type: unspecified type Qualified Code(s): R19.7 - Diarrhea, unspecified
[2021-07-16] MEDS ORDERED: ACETAMINOPHEN 1,000 MG/100 ML VIAL IV STA (15:48)
[2021-07-16] MEDS ORDERED: SODIUM CHLORIDE 0.9% 1000ML 1,000 ML IV ONE (15:48)
[2021-07-16] MEDS ORDERED: guaiFENesin 600 MG TABCR PO STA (15:48)
[2021-07-16] MEDS ORDERED: dexAMETHasone**PF** 10 MG/ML VIAL IV ONE (15:48)
[2021-07-16] MEDS ORDERED: IPRATROPIUM BROMIDE/ALBUTEROL respimat INH INH STA (15:51)
[2021-07-16 16:27] LABS: Basophils # (auto) 0.02 K/uL (0-0.2); Basophils % (auto) 0.4 %; Eosinophils # (auto) 0.03 K/uL (0-0.5); Eosinophils % (auto) 0.6 %; Hematocrit (blood only) 37.4 % (37-47); Hemoglobin 11.7 g/dL (12.0-16.0); Lymphocytes # (auto) 0.96 K/uL (1.2-3.4); Lymphocytes % (auto) 19.8 %; Mean Corpuscular Hgb Conc 31.3 g/dL (32-36); Mean Corpuscular Volume 89.5 fL (80-100); Mean Platelet Volume 9.4 fL (7.4-10.4); Monocytes # (auto) 0.56 K/uL (0.11-0.59); Monocytes % (auto) 11.6 %; Neutrophils # (auto) 3.27 K/uL (1.4-6.5); Neutrophils % (auto) 67.6 %; Platelet Count 212 K/uL (130-400); RDW Coefficient of Variation 15.6 % (11.5-14.5); RDW Standard Deviation 50.2 fL (36.4-46.3); Red Blood Count 4.18 M/uL (4.2-5.4); White Blood Count 4.84 K/uL (4.8-10.8)
[2021-07-16 16:47] LABS: Alanine Aminotransferase 24 (12-78); Albumin Level 3.5 gm/dl (3.4-5.0); Aspartate Aminotransferase 17 U/L (15-37); BUN Creatinine Ratio 12.3 (10-20); Blood Urea Nitrogen 13 mg/dl (7-18); Calcium 9.4 mg/dl (8.5-10.1); Carbon Dioxide 27 mmol/L (21-32); Chloride 109 mmol/L (98-107); Creatinine Clr Calc Pharmacy 54.4 ml/min; Est GFR (African American) 66.4 ml/min; Est GFR (Non-African American) 57.3 ml/min; Glucose 103 mg/dl (70-99); Lipase 114 U/L (73-393); Potassium 3.5 mmol/L (3.5-5.1); Sodium 142 mmol/L (136-145)
[2021-07-16 16:52] LABS: Albumin Globulin Ratio 0.9 (0.9-2); Alkaline Phosphatase 107 U/L (45-117); Bilirubin,Total 0.3 mg/dl (0.2-1); Globulin 3.9 gm/dl (2.5-4.0); NT Pro B Type Natriuretic Pept 235 pg/ml (0-900); Phosphorus 3.8 mg/dl (2.5-4.9); Total Protein 7.4 gm/dl (6.4-8.2); Troponin I < 0.015 ng/ml (0-0.045)
--- NOTE | 2021-07-16 16:56 | XRay Report ---
XR chest 1V portable CLINICAL HISTORY: Chest Pain TECHNIQUE: Single frontal radiograph of the chest was obtained. Comparison: Comparison is made to chest one view 04/27/2019 FINDINGS: No lines and tubes are seen. The cardiomediastinal silhouette is normal. The lungs are clear. No evid ence of pleural effusion or pneumothorax. IMPRESSION: No acute chest disease. ACT 112: Negative or not required by law. Electronically signed by: Matthew Perez M.D. 07/16/2021 4:54 PM
[2021-07-16 17:03] LABS: Influenza A virus by PCR Negative (Neg); Influenza B virus by PCR Negative (Neg); RSV by PCR Negative (Neg); SARS CoV2 RNA(COVID-19) InHosp NEGATIVE (Negative)
[2021-07-16] MEDS ORDERED: ALBUT/IPRATROP 3MG/0.5MG NEB 3 ML VIAL NEB ONE (17:45)
--- NOTE | 2021-07-16 18:32 | History & Physical Report ---
Date of Service July 16, 2021 Assessment & Plan (1) COPD exacerbation: Plan: 61 year old female past medical history of COPD not on home O2, current tobacco use, heart attack s/p 3 stents and bypass in 2009, HTN, migraines, CAD, and TIA admitted for COPD exacerbation. COPD exacerbation: -Hypoxic on RA at home with ambulance, improved O2 sat with nebulizer and O2. -Chest X-ray: lungs clear, no evidence pleural effusion, pneumothorax. -Dyspnea and wheezing most likely 2/2 COPD exacerbation -Started on azithromycin, solu-medrol, duoneb treatment, albuterol inhaler PRN, continued home Symbicort, Anoro Ellipta -Monitor O2 sat overnight and attempt walking test for saturation tomorrow morning. -Most likely patient will need to be on O2 at home upon discharge. Hypoxia: -Hypoxic at home when EMS arrived, improved on nebulizer and 4L O2 en route. -Patient O2 sat above 92% on 2L NC, attempt walking test tomorrow morning. -Same thought process for causation above. B/L carotid artery disease: -Continue home atorvastatin and aspirin. HTN: -Continue home verapamil. Continue to monitor BP. GERD: -Continue home pantoprazole. Cigarette nicotine dependence: -Patient okay with nicotine patch while in hospital. Depression: -Continue duloxetine and bupropion. Migraines: -Continue lasmiditan, lamotrigine. Dispo: Med/Surg Code Status: DNR/DNI DVT Prophylaxis: (2) Hypoxia: (3) Bilateral carotid artery disease: (4) GERD (gastroesophageal reflux disease): (5) Depression: (6) Cigarette nicotine dependence: (7) Migraine with aura and without status migrainosus, not intractable: History of Present Illness Chief Complaint: Shortness of breath and hypoxia Primary Care Provider: Julio César Diop MD 61 year old female past medical history COPD not on home O2, heart attack s/p 3 stents and bypass in 2009, HTN, migraines, and CAD who presented to the ED with 4 days of shortness of breath and wheezing at rest and upon exertion. Patient has had worsening shortness of breath and wheezing since Tuesday where she tried cough syrup, cold medicine, Vicks vapor rub for chest, and her nebulizer at home. She said she had no relief from those therapies and then her nebulizer broke on Tuesday. She had been experiencing difficulty sleeping due to a choking sensation while lying down and found she had to use multiple pillows in order to get any sleep. She experiences shortness of breath when walking from her bed to her bathroom and feels by the time she reaches the bathroom she has to rest due to being too out of breath. She did a home test for Covid 19 two days ago and said that was negative. She has had a cough with this as well that brings up yellow sputum and has a congested feeling in her chest along with it. Throat is more of a scratchy feeling rather than a sore throat. She has felt feverish, chills at times, decreased appetite, and fatigue. She said she usually gets colds around this time of the year and has had pneumonia a couple times the past few years. She is up to date on her Tdap (2015) and pneumococcal vaccinations (2009). She has a long history of smoking and says that she cut down now from 2 packs a day to half a pack per day. She said that smoking the past week has really hurt her lungs but she has a nicotine dependence. She called the a mbulance before coming in and they found her hypoxic but she improved with nebulizer and 4L oxygen on the way to the ED. She was given fluids and dexamethasone in the ED. Patient said she was previously on Plavix but had a bleeding problem and so was switched to just ASA 81mg. Allergies Allergy/AdvReac Type Severity Reaction Status Date / Time Iodinated Contrast Media Allergy Unknown RASH Verified 07/16/21 20:31 nitrofurantoin Allergy Unknown HIVES Verified 07/16/21 20:31 senna Allergy Unknown HIVES from Verified 07/16/21 20:31 X-Prep, TAKES SENOKOT AT HOME Beta-Blockers AdvReac Unknown HYPOTENSION Verified 07/16/21 20:31 (Beta-Adrenergic Bloc rizatriptan AdvReac Unknown NAUSEA AND Verified 07/16/21 20:31 VOMITING sumatriptan AdvReac Unknown WORSENED Verified 07/16/21 20:31 HEADACHE zolpidem AdvReac Unknown NIGHTMARES Verified 07/16/21 20:31 Home Medications Medication Instructions Recorded Confirmed Type quetiapine 100 mg tablet (Seroquel) 300 mg PO HS tab 06/12/18 07/16/21 History aspirin 81 mg tablet,delayed 81 mg PO HS 07/27/18 07/16/21 History release (Aspirin Low Dose) coenzyme Q10 100 mg capsule (Co 200 mg PO HS 07/27/18 07/16/21 History Q-10) cyanocobalamin (vitamin B-12) 1,000 mcg PO QAM 07/27/18 07/16/21 History 1,000 mcg tablet (Vitamin B-12) melatonin 10 mg tablet 10 mg PO HS 07/27/18 07/16/21 History multivitamin (One Daily 1 tab PO QAM 07/27/18 07/16/21 History Multivitamin) omega 0-pnf-ymw-fish oil 1,000 mg 1 cap PO BID 07/27/18 07/16/21 History (120 mg-180 mg) capsule (Fish Oil) duloxetine 30 mg capsule,delayed 30 mg PO QAM 06/04/19 07/16/21 History release (Cymbalta) albuterol sulfate 2.5 mg INHALATION Q4H PRN 06/16/19 07/16/21 History gabapentin 600 mg tablet 600 mg PO TID 06/16/19 07/16/21 History onabotulinumtoxinA 100 unit 100 unit SUBCUT Q3M 06/16/19 07/16/21 History solution for injection (Botox) tramadol 50 mg tablet 50 mg PO Q8H PRN #30 tab 09/25/19 07/16/21 Rx atorvastatin 80 mg tablet 80 mg PO QPM 10/04/19 07/16/21 History budesonide-formoterol HFA 160 2 puff INHALATION BID 12/04/19 07/16/21 History mcg-4.5 mcg/actuation aerosol inhaler (Symbicort) lamotrigine 200 mg tablet 200 mg PO HS 12/04/19 07/16/21 History bupropion HCl 150 mg tablet,12 hr 150 mg PO BID ea 04/17/20 07/16/21 History sustained-release (Wellbutrin SR) cholecalciferol (vitamin D3) 25 2,000 unit PO QAM cap 04/17/20 07/16/21 History mcg (1,000 unit) capsule (Vitamin D3) albuterol sulfate 90 mcg/actuation 2 puff INHALATION Q6H PRN #8.5 gm 04/24/20 07/16/21 Rx aerosol inhaler (Ventolin HFA) magnesium oxide 400 mg PO QAM 10/30/20 07/16/21 History verapamil 300 mg capsule 24hr 300 mg PO HS #90 cap 11/19/20 07/16/[address],ext.release ascorbic acid (vitamin C) 500 mg 500 mg PO QAM 11/20/20 07/16/21 History tablet (Vitamin C) sucralfate 1 gram tablet 1 g PO UD PRN 11/20/20 07/16/21 History lidocaine 5 % topical patch 1 patch TOP DAILY PRN #15 ea 02/12/21 07/16/21 Rx uyeiyiihxg-jgzflmrxbwaoi-xhultjlf 1 tab PO BID PRN 04/10/21 07/16/21 History 50 mg-325 mg-40 mg tablet (Esgic) roflumilast 500 mcg tablet 500 mcg PO QAM #90 tab 05/15/21 07/16/21 Rx (Daliresp) umeclidinium 62.5 mcg-vilanterol 1 inh INHALATION QAM #60 ea 05/15/21 07/16/21 Rx 25 mcg/actuation powdr for inhalation (Anoro Ellipta) lasmiditan 100 mg tablet (Reyvow) 100 mg PO DAILY PRN #8 tab 05/22/21 07/16/21 Rx baclofen 10 mg tablet 10 mg PO HS #30 tab 06/25/21 07/16/21 Rx pantoprazole 40 mg tablet,delayed 40 mg PO QAM #30 tab 06/30/21 07/16/21 Rx release azithromycin 250 mg tablet 250 mg PO QAM 4 Days #4 tab 07/17/21 Rx fluticasone propionate 110 2 inh INHALATION BID #12 g 07/17/21 Rx mcg/actuation HFA aerosol inhaler prednisone 50 mg tablet 50 mg PO DAILY 5 Days #5 tab 07/17/21 Rx Past Med/Surg History Medical History Benign essential hypertension Bilateral carotid artery disease Bilateral carotid artery disease Bilateral lumbar radiculopathy Bronchitis HX, MOST RECENT WINTER 2019 Cauda equina syndrome PT NOT SURE Colon polyp HX COPD (chronic obstructive pulmonary disease) FOLLOWS DR. HAJI/USES ALBUTEROL "ALMOST EVERY DAY" Coronary artery disease Dyslipidemia Emphysema of lung FOLLOWS DR. ROFF > [facility] Failed back syndrome of lumbar spine Heart attack MAY 2010> STENT> [facility] SEP 2010 > FROM TOO SMALL OF VEIN PLACED DURING BYPASS> NO FURTHER TREATMENT IBS (irritable bowel syndrome) Kidney stones HX OF KIDNEY STONES AND CURRENTLY LEFT SIDE - NO CURRENT PROBLEMS WITH Low back problem Lumbar disc herniation HX Lymphedema Migraine with aura and without status migrainosus, not intractable PTSD (post-traumatic stress disorder) FOLLOWS PSYCH & COUNSELOR - SOME SHORT TERM AND PRISON MEMORY PROBLEMS - UNDETERMINED IF R/T PTSD Radicular pain of lumbosacral region Restless legs syndrome Sciatica Seasonal allergies Transient ischemic attack (TIA) SEVERAL YRS AGO /[facility] /NO TREATMENTS/ NO RESIDUAL EFFECTS /FOLLOWS DR. ALVARADO Surgical History H/O heart bypass surgery AUG 2010 > HEART ATTACK> [facility] MARTINES >QUADRUPLE FOLLOWS DR. MATILDA HANEY H/O unilateral salpingectomy History of back surgery X6, INCLUDING LUMBAR FUSION L4-5 History of section History of cholecystectomy History of colonoscopy History of ectopic SURGERY FOR TUBAL History of hysterectomy History of lithotripsy History of right knee surgery History of shoulder surgery RIGHT History of total knee replacement RIGHT S/P epidural steroid injection caudal epidural steroid injection Family History Daughter Atrial septal defect Son Atrial septal defect Sister Crohn's disease Cancer Family history of [place] (myocardial infarction) Mother Cervical cancer Father Diabetes Coronary heart disease Cancer Brother Nephroblastoma Cancer Grandmother (Maternal) Diabetes Grandmother (Paternal) Diabetes Other No significant family history Social History Smoking Status: Current every day smoker Tobacco Type: Cigarettes Cigarettes Per Day: 18; Second Hand Exposure: No; Do You Dip or Chew Tobacco: No; Tobacco Cessation Education Requested by Patient: No Hx Alcohol Use: No Hx Substance Use: No Preferred Language: Kazakh Communication Ability: Effective Visual Impairment: Limited Hearing Ability: Normal Nurse Orthopaedic Required: No Beliefs That Will Affect Care: None marital status: Current Living Situation: Alone current occupational status: disabled Other Information That Helps Us Care for You: No Feels Safe at Home: Yes Safety Concerns: Feels Safe At This Time Childhood Exposure to Second-Hand Smoke: Yes Assistive Devices: Nebulizer Review of Systems Respiratory: + cough, + dyspnea, + dyspnea on exertion, + sputum production (Yellow) and + wheezing Physical Exam Eyes: PERRL, conjunctivae normal, anicteric sclerae Neck: trachea midline, no thyromegaly Respiratory: Expiratory wheezes auscultated bilaterally, on 2L NC. Cardiovascular: RRR, no murmur, no edema No swelling or edema in bilateral lower extremities. Pulses 2+ in all 4 extremities. Gastrointestinal (Abdomen): normal bowel sounds, soft, nontender, no hepatosplenomegaly Psychiatric: A+Ox3, euthymic affect Results & Data Results & Data ([facility]) Vital Signs (Past 12 Hours) Vital Signs Temp Pulse Pulse Resp BP BP Pulse Ox 07/16/21 17:44 87 L 07/16/21 16:40 81 16 93 07/16/21 15:56 36.7 C 86 17 136/69 94 07/16/21 15:45 88 L 07/16/21 15:35 36.7 C 86 20 139/63 88 L Supervising Physician Co-Signing Physician Notes I personally saw and examined the patient. I verified all mcclure points and agree with Dr Iyer, PGY1 with the following exceptions and/or additions: 61 year old female with COPD. Duoneb no longer working at home. Admission for COPD exacerbation. CXR without. Patient seen on part[facility] after being admitted. Currently major complaint is her migraine O/E no respiratory distress, mild expiratory wheeze throughout A/P COPD exacerbation - suspect secondary to her nebulizer not working at home. duonebs, solu-medrol and azithromycin as above, enouraged smoking cessation Hypoxia - Aim O2 sats 88-92% Migraine - fiorocet, patient reports prior worsening of headache to Imitrex therefore will avoid this Resident Activity Tracking Resident Involvement: Resident Care Provided Care Provided: Adult Hospital Medicine
[2021-07-16 19:45] LABS: Magnesium 2.6 mg/dl (1.8-2.4)
[2021-07-16] MEDS ORDERED: ALBUTEROL HFA 8 GM INHALER INH PRN (21:46)
[2021-07-16] MEDS ORDERED: SUCRALFATE 1 GM TAB PO PRN (21:46)
[2021-07-16] MEDS ORDERED: lamoTRIgine 100 MG TAB PO SCH (21:46)
[2021-07-16] MEDS ORDERED: BACLOFEN 10 MG TAB PO SCH (21:46)
[2021-07-16] MEDS ORDERED: ATORVASTATIN 40 MG TAB PO SCH (21:46)
[2021-07-16] MEDS ORDERED: NON-FORMULARY MEDICATION (Coenzyme Q10 [Co Q-10] 100 mg Capsule) PO SCH (21:46)
[2021-07-16] MEDS ORDERED: QUEtiapine FUMARATE 300 MG TABLET PO SCH (21:46)
[2021-07-16] MEDS ORDERED: ALBUT/IPRATROP 3MG/0.5MG NEB 3 ML VIAL NEB PRN (21:46)
[2021-07-16] MEDS ORDERED: ALBUTEROL 0.083% NEBU SOLN 3 ML VIAL INH PRN (21:46)
[2021-07-16] MEDS ORDERED: ASPIRIN 81 MG ECTAB PO SCH (21:46)
[2021-07-16] MEDS ORDERED: MELATONIN 3 MG TAB PO PRN (22:00)
[2021-07-16] MEDS ORDERED: AZITHROMYCIN 500 MG in DEXTROSE 5% 250 ML IV SCH (22:00)
[2021-07-16] MEDS ORDERED: VERAPAMIL HCL 120 MG TABCR PO SCH (22:00)
[2021-07-16] MEDS ORDERED: VERAPAMIL HCL 180 MG TABCR PO SCH (22:15)
[2021-07-16] MEDS ORDERED: BUTALBITAL/ACETAMIN/CAFFEINE TAB PO STA (22:25)
[2021-07-16] MEDS ORDERED: ACETAMINOPHEN 325 MG TAB PO PRN (22:26)
[2021-07-16] MEDS ORDERED: AZITHROMYCIN 250 MG TAB PO ONE (22:31)
[2021-07-16] MEDS: methylPREDNISolone 40 MG in SYRINGE 0 ML IV SCH (22:54)
[2021-07-16] MEDS: GABAPENTIN 600 MG TAB PO SCH (22:55)
[2021-07-16] MEDS: buPROPion SR 150 MG TABCR PO SCH (22:56)
[2021-07-16] MEDS: SODIUM CHLORIDE 0.9% 1000ML 1,000 ML IV SCH (23:14)
[2021-07-17] MEDS: ALBUT/IPRATROP 3MG/0.5MG NEB 3 ML VIAL INH SCH ×3 (01:25→11:27)
[2021-07-17 06:35] LABS: Basophils # (auto) 0.01 K/uL (0-0.2); Basophils % (auto) 0.3 %; Hemoglobin 10.1 g/dL (12.0-16.0); Lymphocytes # (auto) 0.37 K/uL (1.2-3.4); Lymphocytes % (auto) 11.2 %; Mean Corpuscular Hemoglobin 27.7 pg (25-34); Mean Corpuscular Hgb Conc 30.6 g/dL (32-36); Mean Corpuscular Volume 90.7 fL (80-100); Mean Platelet Volume 9.3 fL (7.4-10.4); Monocytes # (auto) 0.09 K/uL (0.11-0.59); Monocytes % (auto) 2.7 %; Neutrophils # (auto) 2.82 K/uL (1.4-6.5); Neutrophils % (auto) 85.8 %; Platelet Count 211 K/uL (130-400); RDW Coefficient of Variation 15.7 % (11.5-14.5); RDW Standard Deviation 52.9 fL (36.4-46.3); Red Blood Count 3.64 M/uL (4.2-5.4); White Blood Count 3.29 K/uL (4.8-10.8)
[2021-07-17 07:17] LABS: Calcium 8.6 mg/dl (8.5-10.1); Creatinine Clr Calc Pharmacy 75.9 ml/min; Est GFR (African American) 101.3 ml/min; Est GFR (Non-African American) 87.4 ml/min; Potassium 4.2 mmol/L (3.5-5.1)
--- NOTE | 2021-07-17 07:33 | Hospitalist Progress Note ---
Date of Service July 17, 2021 Assessment & Plan (1) COPD exacerbation: Plan: 61 year old female past medical history of COPD not on home O2, current tobacco use, heart attack s/p 3 stents and bypass in 2009, HTN, migraines, CAD, and TIA admitted for COPD exacerbation. COPD exacerbation: -Hypoxic on RA at home with ambulance, improved O2 sat with nebulizer and O2. -Chest X-ray: lungs clear, no evidence pleural effusion, pneumothorax. -Dyspnea and wheezing most likely 2/2 COPD exacerbation -Started on azithromycin, solu-medrol, duoneb treatment, albuterol inhaler PRN, continued home Symbicort, Anoro Ellipta -Monitor O2 sat overnight and attempt walking test for saturation tomorrow morning. -Most likely patient will need to be on O2 at home upon discharge. Hypoxia: -Hypoxic at home when EMS arrived, improved on nebulizer and 4L O2 en route. -Patient O2 sat above 92% on 2L NC, attempt walking test tomorrow morning. -Same thought process for causation above. B/L carotid artery disease: -Continue home atorvastatin and aspirin. HTN: -Continue home verapamil. Continue to monitor BP. GERD: -Continue home pantoprazole. Cigarette nicotine dependence: -Patient okay with nicotine patch while in hospital. Depression: -Continue duloxetine and bupropion. Migraines: -Continue lasmiditan, lamotrigine. Dispo: Med/Surg Code Status: DNR/DNI DVT Prophylaxis: (2) Hypoxia: (3) Bilateral carotid artery disease: (4) GERD (gastroesophageal reflux disease): (5) Depression: (6) Cigarette nicotine dependence: (7) Migraine with aura and without status migrainosus, not intractable: Admission and Anticipated Discharge Date Admission Date: July 16, 2021 Results & Data Results & Data ([facility]) Vital Signs (Past 12 Hours) Vital Signs Temp Pulse Pulse Resp BP Pulse Ox 07/17/21 01:25 92 H 16 90 07/16/21 22:24 19 94 07/16/21 21:47 37.1 C 98 H 22 167/78 H 88 L 07/16/21 21:03 97 H 17 145/64 H 92 07/16/21 19:47 89 16 159/92 H 96
[2021-07-17] MEDS: SODIUM CHLORIDE 0.9% 1000ML 1,000 ML IV SCH (07:59)
[2021-07-17] MEDS: buPROPion SR 150 MG TABCR PO SCH (08:00)
[2021-07-17] MEDS: GABAPENTIN 600 MG TAB PO SCH ×2 (08:02→12:56)
--- NOTE | 2021-07-17 08:55 | Hospitalist Progress Note ---
Date of Service July 17, 2021 Assessment & Plan (1) COPD exacerbation: Plan: COPD exacerbation: -Hypoxic on RA at home with ambulance, improved O2 sat with nebulizer and O2. -Chest X-ray: lungs clear, no evidence pleural effusion, pneumothorax. -Dyspnea and wheezing most likely 2/2 COPD exacerbation -Started on azithromycin, solu-medrol, duoneb treatment, albuterol inhaler PRN, continued home Symbicort, Anoro Ellipta -Monitor O2 sat overnight and attempt walking test for saturation tomorrow morning. -Most likely patient will need to be on O2 at home upon discharge. Hypoxia: -Hypoxic at home when EMS arrived, improved on nebulizer and 4L O2 en route. -Patient O2 sat above 92% on 2L NC -Same thought process for causation above. B/L carotid artery disease: -Continue home atorvastatin and aspirin. HTN: -Continue home verapamil. Continue to monitor BP. GERD: -Continue home pantoprazole. Cigarette nicotine dependence: -Patient okay with nicotine patch while in hospital. Depression: -Continue duloxetine and bupropion. Migraines: -Continue lasmiditan, lamotrigine. DDx - TN Sx of SOB with exertion should be concerning for TN, however her BNP WNL at 235 which makes TN less likely of a Dx. DDx - Pulmonary Embolism Pain with inspiration? DDx - Brain Herniation Her Hypoxia may mimic the Sx of central herniation. She meets only 2/3 criteria for [facility] which would indicate imminent herniation. Furthermore she condition improved with oxygen therapy which makes herniation less likely. Dispo: Med/Surg Code Status: DNR/DNI DVT Prophylaxis: Admission and Anticipated Discharge Date Admission Date: July 16, 2021 Subjective 61 y/o female with h/o of COPD and Asthma presents with CC of wheezing, SOB with exertion. She was coughing up yellow phelm, but today it is clear. She states starting about one week ago she started to feel ill but decided against seeking medical attention. On Tuesday her daughter observed that her condition worsened and convinced her to present to the ED for evaluation. She was admitted on 07/16. It was noted her O2 Sat was 88% on room air. She is not on oxygen therapy at home. She states she was not doing anything out of the ordinary for her what would have led to acute exasperations of her COPD. Last night she attempted to go to the bathroom without her oxygen, and began to hyperventilate. This morning, she is not entirely confident in her ability to walk down the hallway without oxygen but is willing to try. The wheezing has continued, but she says is has improved. Pt endorses that her condition has improved since being admitted. She notes a LANCE. But notes this could be due to caffeine, as she normally drinks 8x cups of coffee a day and has not had coffee this morning. She notes tremors in her hands particular with outstretched arms. No tremor noticed at rest. She uses CBD oil to help with the pain in her back. She has a h/o of back surgery. Last saw Dr. Wasserman for evaluation who suggested a MRI, but insurance will not cover imaging until she completes 6 weeks of physical thearpy which she has not been able to complete. Tobacco Hx: She has smoked about 1/5 a pack a day since she was 12. Would like to quit. has nicotine patches at home. Social Hx: She lives by herself in [facility]. She has children, many of whom vape. She is not around alot of people who smoke cigarettes. She has quit smoking for multiple times in the past but has returned to smoking to cope with stress. She is interested in attending smoking cessation support groups. Recreational Drugs: Aside from the CBD gummies she uses to Tx her back pain she does not use recreational drugs. She asked about the possibility of returning home today and offered the idea of having one of her grandchildren stay with her while she recovers. Physical Exam Physical Exam: General: Pleasant affect, NAD, Responding appropriately to questions HEENT: No visible discharge from her eyes Cardio: RRR. no rubs, murmurs or gallops PULM: BL Wheezing on auscultation ABD: Minor discomfort to palpation in the RLQ NEURO: AOx3 Results & Data Results & Data ([facility]) Vital Signs (Past 12 Hours) Vital Signs Temp Pulse Pulse Resp BP Pulse Ox 07/17/21 07:38 82 16 94 07/17/21 07:00 36.9 C 84 18 153/69 H 93 07/17/21 01:25 92 H 16 90 07/16/21 22:24 19 94 07/16/21 21:47 37.1 C 98 H 22 167/78 H 88 L 07/16/21 21:03 97 H 17 145/64 H 92 Laboratory Results Laboratory Results WBC 3.29 K/uL (4.8-10.8) L 07/17/21 05:56 RBC 3.64 M/uL (4.2-5.4) L 07/17/21 05:56 Hgb 10.1 g/dL (12.0-16.0) L 07/17/21 05:56 Hct 33.0 % (37-47) L 07/17/21 05:56 MCV 90.7 fL (80-100) 07/17/21 05:56 MCH 27.7 pg (25-34) 07/17/21 05:56 MCHC 30.6 g/dL (32-36) L 07/17/21 05:56 RDW Std Deviation 52.9 fL (36.4-46.3) H 07/17/21 05:56 RDW Coeff of Elicia 15.7 % (11.5-14.5) H 07/17/21 05:56 Plt Count 211 K/uL (130-400) 07/17/21 05:56 MPV 9.3 fL (7.4-10.4) 07/17/21 05:56 Immature Gran % (Auto) 0.0 % 07/17/21 05:56 Neut % (Auto) 85.8 % 07/17/21 05:56 Lymph % (Auto) 11.2 % 07/17/21 05:56 [place] % (Auto) 2.7 % 07/17/21 05:56 Eos % (Auto) 0.0 % 07/17/21 05:56 Baso % (Auto) 0.3 % 07/17/21 05:56 Neut # (Auto) 2.82 K/uL (1.4-6.5) 07/17/21 05:56 Lymph # (Auto) 0.37 K/uL (1.2-3.4) L 07/17/21 05:56 [place] # (Auto) 0.09 K/uL (0.11-0.59) L 07/17/21 05:56 Eos # (Auto) 0.00 K/uL (0-0.5) 07/17/21 05:56 Baso # (Auto) 0.01 K/uL (0-0.2) 07/17/21 05:56 Immature Gran # (Auto) 0.00 K/uL (0.00-0.02) 07/17/21 05:56 Sodium 143 mmol/L (136-145) 07/17/21 05:56 Potassium 4.2 mmol/L (3.5-5.1) D 07/17/21 05:56 Chloride 114 mmol/L (98-107) H 07/17/21 05:56 Carbon Dioxide 23 mmol/L (21-32) 07/17/21 05:56 Anion Gap 6.0 (3-11) 07/17/21 05:56 BUN 11 mg/dl (7-18) 07/17/21 05:56 Creatinine 0.74 mg/dl (0.6-1.2) D 07/17/21 05:56 Est Cr Clr Drug Dosing 75.9 ml/min 07/17/21 05:56 Est GFR ( Amer) 101.3 ml/min 07/17/21 05:56 Est GFR (Non-Af Amer) 87.4 ml/min 07/17/21 05:56 BUN/Creatinine Ratio 15.0 (10-20) 07/17/21 05:56 Glucose 147 mg/dl (70-99) H 07/17/21 05:56 Calcium 8.6 mg/dl (8.5-10.1) 07/17/21 05:56 Phosphorus 3.8 mg/dl (2.5-4.9) 07/16/21 16:15 Magnesium 2.6 mg/dl (1.8-2.4) H 07/16/21 16:15 Total Bilirubin 0.3 mg/dl (0.2-1) 07/16/21 16:15 AST 17 U/L (15-37) 07/16/21 16:15 ALT 24 (12-78) 07/16/21 16:15 Alkaline Phosphatase 107 U/L (45-117) 07/16/21 16:15 Troponin I < 0.015 ng/ml (0-0.045) 07/16/21 16:15 NT-Pro-B Natriuret Pep 235 pg/ml (0-900) 07/16/21 16:15 Total Protein 7.4 gm/dl (6.4-8.2) 07/16/21 16:15 Albumin 3.5 gm/dl (3.4-5.0) 07/16/21 16:15 Globulin 3.9 gm/dl (2.5-4.0) 07/16/21 16:15 Albumin/Globulin Ratio 0.9 (0.9-2) 07/16/21 16:15 Lipase 114 U/L (73-393) 07/16/21 16:15 SARS-CoV-2 (PCR) NEGATIVE (Negative) 07/16/21 16:05 Influenza Type A (PCR) Negative (Neg) 07/16/21 16:05 Influenza Type B (PCR) Negative (Neg) 07/16/21 16:05 RSV (RT-PCR) Negative (Neg) 07/16/21 16:05 Impressions Chest X-Ray 07/16/21 15:49 XR chest 1V portable CLINICAL HISTORY: Chest Pain TECHNIQUE: Single frontal radiograph of the chest was obtained. Comparison: Comparison is made to chest one view 04/27/2019 FINDINGS: No lines and tubes are seen. The cardiomediastinal silhouette is normal. The lungs are clear. No evidence of pleural effusion or pneumothorax. IMPRESSION: No acute chest disease. ACT 112: Negative or not required by law. Electronically signed by: Matthew Perez M.D. 07/16/2021 4:54 PM Medications Administered Current Inpatient Medications Acetaminophen (Acetaminophen 325 Mg Tab) 650 mg PO Q4H PRN PRN Reason: Pain or Fever Stop: 08/15/21 22:25 Albuterol (Albuterol Hfa 8 Gm Inhaler) 2 puffs INH Q6H PRN PRN Reason: Shortness Of Breath Stop: 08/15/21 21:45 Albuterol (Albut/Ipratrop 3mg/0.5mg Neb 3 Ml Vial) 3 ml NEB Q2H PRN PRN Reason: Shortness of Breath/Wheezing Stop: 08/15/21 21:45 Albuterol (Albut/Ipratrop 3mg/0.5mg Neb 3 Ml Vial) 3 ml INH Q6R LUDA Stop: 08/16/21 00:59 Last Admin: 07/17/21 07:38 Dose: 3 ml Documented by: Aspirin (Aspirin 81 Mg Ectab) 81 mg PO HS LUDA Stop: 08/15/21 21:45 Last Admin: 07/16/21 22:55 Dose: 81 mg Documented by: Atorvastatin Calcium (Atorvastatin 40 Mg Tab) 80 mg PO QPM LUDA Stop: 08/15/21 21:45 Last Admin: 07/16/21 22:55 Dose: 80 mg Documented by: Azithromycin (Azithromycin 250 Mg Tab) 250 mg PO QAM LUDA Stop: 07/21/21 08:59 Last Admin: 07/17/21 08:00 Dose: 250 mg Documented by: Baclofen (Baclofen 10 Mg Tab) 10 mg PO HS LUDA Stop: 08/15/21 21:45 Last Admin: 07/16/21 22:57 Dose: 10 mg Documented by: Bupropion HCl (Bupropion Sr 150 Mg Tabcr) 150 mg PO BID LUDA Stop: 08/15/21 21:45 Last Admin: 07/17/21 08:00 Dose: 150 mg Documented by: Cyanocobalamin (Cyanocobalamin 500 Mcg Tablet (Vitamin B-12)) 1,000 mcg PO QAM LUDA Stop: 08/16/21 08:59 Last Admin: 07/17/21 08:00 Dose: 1,000 mcg Documented by: Duloxetine HCl (Duloxetine Hcl 30 Mg Cap) 30 mg PO QAM LUDA Stop: 08/16/21 08:59 Last Admin: 07/17/21 08:01 Dose: 30 mg Documented by: Fluticasone Furoate (Fluticasone Furoate 200mcg 14 Puffs/Inhaler) 1 puffs INH DAILY LUDA Stop: 08/16/21 08:59 Last Admin: 07/17/21 08:01 Dose: 1 puffs Documented by: Gabapentin (Gabapentin 600 Mg Tab) 600 mg PO TID LUDA Stop: 08/15/21 21:45 Last Admin: 07/17/21 08:02 Dose: 600 mg Documented by: Sodium Chloride (Nss 1000ml) 1,000 mls @ 100 mls/hr IV .Q10H LUDA Stop: 07/17/21 17:45 Last Admin: 07/17/21 07:59 Dose: 100 mls/hr Documented by: Methylprednisolone 40 mg/ (Syringe) 0.64 mls @ 1.5 mls/min IV Q12H LUDA Stop: 08/15/21 21:59 Last Admin: 07/16/21 22:54 Dose: 1.5 mls/min Documented by: Lamotrigine (Lamotrigine 100 Mg Tab) 200 mg PO [facility] Stop: 08/15/21 21:45 Last Admin: 07/16/21 22:57 Dose: 200 mg Documented by: Melatonin (Melatonin 3 Mg Tab) 9 mg PO HSZ PRN PRN Reason: Sleep Stop: 08/15/21 21:59 Miscellaneous (Lasmiditan [Reyvow] 100 Mg - Order Awaiting Action) 1 ea N/A QS [facility] Stop: 08/16/21 07:59 Last Admin: 07/17/21 07:59 Dose: Not Given Documented by: Miscellaneous (Remove Nicoderm Patch) 1 ea N/A DAILY@858 [facility] Stop: 08/17/21 08:58 Nicotine (Nicotine 7 Mg/24 Hr Tdsy) [address] [facility] Stop: 08/16/21 08:59 Last Admin: 07/16/21 22:54 Dose: 7 mg Documented by: Pantoprazole Sodium (Pantoprazole 40 Mg Tab) [address] [facility] Stop: 08/16/21 08:59 Last Admin: 07/17/21 08:02 Dose: 40 mg Documented by: Quetiapine Fumarate (Quetiapine Fumarate 300 Mg Tablet) 300 mg PO [facility] Stop: 08/15/21 21:45 Last Admin: 07/16/21 22:56 Dose: 300 mg Documented by: Roflumilast (Roflumilast 500 Mcg Tab) [address] [facility] Stop: 08/16/21 08:59 Last Admin: 07/17/21 08:02 Dose: 500 mcg Documented by: Sucralfate (Sucralfate 1 Gm Tab) 1 gm PO ACHS PRN PRN Reason: Abdominal Pain Stop: 08/15/21 21:45 Last Admin: 07/16/21 22:56 Dose: 1 gm Documented by: Umeclidinium/Vilanterol (Umeclidinium/Vilanterol 62.5/25mcg 7 Puffs/Inhaler) [address] [facility] Stop: 08/16/21 08:59 Last Admin: 07/17/21 08:01 Dose: 1 puffs Documented by: Verapamil HCl (Verapamil Hcl 120 Mg Tabcr) 120 mg PO [facility] Stop: 08/15/21 21:59 Last Admin: 07/16/21 22:57 Dose: 120 mg Documented by: Verapamil HCl (Verapamil Hcl 180 Mg Tabcr) 180 mg PO HS [facility] Stop: 08/15/21 22:14 Last Admin: 07/16/21 22:56 Dose: 180 mg Documented by:
[2021-07-17] MEDS ORDERED: UMECLIDINIUM/VILANTEROL 62.5/25MCG 7 PUFFS/INHALER INH SCH (09:00)
[2021-07-17] MEDS ORDERED: CYANOCOBALAMIN 500 MCG TABLET (VITAMIN B-12) PO SCH (09:00)
[2021-07-17] MEDS ORDERED: ROFLUMILAST 500 MCG TAB PO SCH (09:00)
[2021-07-17] MEDS ORDERED: NICOTINE 7 MG/24 HR TDSY TD SCH (09:00)
[2021-07-17] MEDS ORDERED: FLUTICASONE FUROATE 200MCG 14 PUFFS/INHALER INH SCH (09:00)
[2021-07-17] MEDS ORDERED: AZITHROMYCIN 250 MG TAB PO SCH (09:00)
[2021-07-17] MEDS ORDERED: PANTOprazole 40 MG TAB PO SCH (09:00)
[2021-07-17] MEDS ORDERED: DULoxetine HCL 30 MG CAP PO SCH (09:00)
[2021-07-17] MEDS: methylPREDNISolone 40 MG in SYRINGE 0 ML IV SCH (09:20)
--- NOTE | 2021-07-17 10:51 | Discharge Summary ---
Date of Service July 17, 2021 Admission HPI Per Admitting Provider 61 year old female past medical history COPD not on home O2, heart attack s/p 3 stents and bypass in 2009, HTN, migraines, and CAD who presented to the ED with 4 days of shortness of breath and wheezing at rest and upon exertion. Patient has had worsening shortness of breath and wheezing since Tuesday where she tried cough syrup, cold medicine, Vicks vapor rub for chest, and her nebulizer at home. She said she had no relief from those therapies and then her nebulizer broke on Tuesday. She had been experiencing difficulty sleeping due to a choking sensation while lying down and found she had to use multiple pillows in order to get any sleep. She experiences shortness of breath when walking from her bed to her bathroom and feels by the time she reaches the bathroom she has to rest due to being too out of breath. She did a home test for Covid 19 two days ago and said that was negative. She has had a cough with this as well that brings up yellow sputum and has a congested feeling in her chest along with it. Throat is more of a scratchy feeling rather than a sore throat. She has felt feverish, chills at times, decreased appetite, and fatigue. She said she usually gets colds around this time of the year and has had pneumonia a couple times the past few years. She is up to date on her Tdap (2015) and pneumococcal vaccinations (2009). She has a long history of smoking and says that she cut down now from 2 packs a day to half a pack per day. She said that smoking the past week has really hurt her lungs but she has a nicotine dependence. She called the ambulance before coming in and they found her hypoxic but she improved with nebulizer and 4L oxygen on the way to the ED. She was given fluids and dexamethasone in the ED. Patient said she was previously on Plavix but had a bleeding problem and so was switched to just ASA 81mg. Admission Exam Per Admitting Provider Eyes: PERRL, conjunctivae normal, anicteric sclerae Neck: trachea midline, no thyromegaly Respiratory: Expiratory wheezes auscultated bilaterally, on 2L NC. Cardiovascular: RRR, no murmur, no edema No swelling or edema in bilateral lower extremities. Pulses 2+ in all 4 extremities. Gastrointestinal (Abdomen): normal bowel sounds, soft, nontender, no hepatosplenomegaly Psychiatric: A+Ox3, euthymic affect Principal Diagnosis COPD exacerbation Discharge Exam Constitutional WD/WN, vitals as above Respiratory Auscultation: + crackles (Bibasilar; mild) and + wheezes (On expiration) Cardiovascular RRR, no murmur, no edema Gastrointestinal (Abdomen) normal bowel sounds, soft, nontender, no hepatosplenomegaly Discharge Data Allergies Allergy/AdvReac Type Severity Reaction Status Date / Time Iodinated Contrast Media Allergy Unknown RASH Verified 07/16/21 20:31 nitrofurantoin Allergy Unknown HIVES Verified 07/16/21 20:31 senna Allergy Unknown HIVES from Verified 07/16/21 20:31 X-Prep, TAKES SENOKOT AT HOME Beta-Blockers AdvReac Unknown HYPOTENSION Verified 07/16/21 20:31 (Beta-Adrenergic Bloc rizatriptan AdvReac Unknown NAUSEA AND Verified 07/16/21 20:31 VOMITING sumatriptan AdvReac Unknown WORSENED Verified 07/16/21 20:31 HEADACHE zolpidem AdvReac Unknown NIGHTMARES Verified 07/16/21 20:31 Consultations 07/16/21 17:45 ED Decision to Admit Stat Hospital Course (1) COPD exacerbation: 61 year old female past medical history of COPD not on home O2, current tobacco use, heart attack s/p 3 stents and bypass in 2009, HTN, migraines, CAD, and TIA admitted for COPD exacerbation. COPD exacerbation: -Hypoxic on RA at home with ambulance, improved O2 sat with nebulizer and O2. -Chest X-ray: lungs clear, no evidence pleural effusion, pneumothorax. -Dyspnea and wheezing most likely 2/2 COPD exacerbation -Started on azithromycin, solu-medrol, duoneb treatment, albuterol inhaler PRN, continued home Symbicort, Anoro Ellipta -2 step ordered for oxygen requirement: 2 L home oxygen; prescription signed and given to patient upon discharge -Solu-Medrol converted from IV to p.o.; same dose; continue for total of 5- day course without taper -Sent home on additional Flovent prescription (patient has at home) Hypoxia: -Hypoxic at home when EMS arrived, improved on nebulizer and 4L O2 en route. -Patient O2 saturation improved to 93% on 2L NC -See above re: walking test B/L carotid artery disease: -Continue home atorvastatin and aspirin. HTN: -Continued home verapamil. Continue to monitor BP. GERD: -Continued home pantoprazole. Cigarette nicotine dependence: -Nicotine patch as needed Depression: -Continued duloxetine and bupropion. Migraines: -Continued lasmiditan, lamotrigine. Dispo: Med/Surg Code Status: DNR/DNI DVT Prophylaxis: (2) Hypoxia: (3) Bilateral carotid artery disease: (4) GERD (gastroesophageal reflux disease): (5) Depression: (6) Cigarette nicotine dependence: (7) Migraine with aura and without status migrainosus, not intractable: Total Time Total Time Spent Total Time Spent (In Minutes): 10 Discharge Plan Discharge Items Patient Disposition: Home - Self-Care Reason For Visit: COPD EXACERBATION Discharge Diagnosis: COPD exacerbation Activity: Per Instructions section Non-emergency contact: Primary Care Provider and Pest Technician Call non-emergency contact if: you have any medication questions and your symptoms worsen Follow-up/Referrals: Julio César Diop MD [Primary Care Provider] - Diet: Regular Addtl Attending Provider Instructions: You were admitted to the hospital for severe shortness of breath and found to be suffering from acute exacerbation of your COPD. During your stay, we did a couple of blood tests to determine the cause of your symptoms and gave you medication to help treat your symptoms until you were stable. A discharge summary will be sent to your primary care physician to ensure continuity of care. Please bring this discharge summary with you to your next office appointment so that your provider can review it at that time. Follow-up appointments: * We have requested a follow-up appointment with Dr. Diop, your primary care physician within one week of discharge. Please call their office if you do not hear from them. * Keep all your follow-up appointments as already scheduled. If you cannot make an appointment, notify your provider. Medications: Your medication list has been reviewed and reconciled upon discharge to ensure accuracy and continuity of care. An updated list of all your medications is included with your hospital discharge paperwork. Please review this list closely, and make note of any changes. * We sent a new medication called Prednisone to your pharmacy. Take Prednisone 40 mg, once tablet daily, for 5 days. * We sent a medication called Flovent to your pharmacy. Take Flovent, 2 puffs every day. Take your medications as instructed; do not skip a dose of your medicines. Make sure all of your doctors know every medicine you are taking (including xvce-lus-fudbqvi medicines, vitamins, and supplements). Call your primary care provider before taking any new medicines (including nacx-epk-kxupnbs medicines, vitamins, and supplements), because some of these may interact with your current medications, or may make your symptoms worse. Tell your primary care provider if you cannot afford your medications. CONTACT YOUR PRIMARY CARE PROVIDER if you experience any of the following: * Worsening shortness of breath * More coughing, wheezing, or mucus production than usual. * Difficulty following your treatment plan, or difficulty taking medications CALL 911 OR GO TO THE EMERGENCY DEPARTMENT if you experience any of the following: * Sudden, severe abdominal pain or nausea/vomiting * Severe chest pain, or chest pain that radiates (moves) to your jaw or arm * Sudden, severe shortness of breath or difficulty breathing Thank you for allowing us to participate in your care. Pending Studies at Discharge: No Stand-Alone Forms: My [facility], Smoking Cessation Medications and DC Order Prescriptions: New azithromycin 250 mg Tablet 250 mg PO QAM 4 Days Qty: 4 RF: 0 fluticasone propionate 110 mcg/actuation HFA aerosol inhaler 2 inh inhalation BID Qty: 12 RF: 0 Continued quetiapine [Seroquel] 100 mg tablet 300 mg PO HS RF: 0 bupropion HCl [Wellbutrin SR] 150 mg tablet sustained-release 12 hr 150 mg PO BID RF: 0 albuterol sulfate [Ventolin HFA] 90 mcg/actuation HFA aerosol inhaler 2 puff INHALATION Q6H PRN (Reason: Shortness Of Breath) Qty: 8.5 RF: 5 verapamil 300 mg capsule, [address] 300 mg PO HS Qty: 90 RF: 4 Reyvow 100 mg tablet 100 mg PO DAILY PRN (Reason: migraine headache) Qty: 8 RF: 5 baclofen 10 mg tablet 10 mg PO HS Qty: 30 RF: 2 pantoprazole 40 mg tablet,delayed release (DR/EC) 40 mg PO QAM Qty: 30 RF: 0 atorvastatin 80 mg tablet 80 mg PO QPM RF: 0 Anoro Ellipta 62.5-25 mcg/actuation blister with device 1 inh INHALATION QAM Qty: 60 RF: 4 Daliresp 500 mcg tablet 500 mcg PO QAM Qty: 90 RF: 3 tramadol 50 mg tablet 50 mg PO Q8H PRN (Reason: pain) Qty: 30 RF: 0 magnesium oxide 400 mg magnesium tablet 400 mg PO QAM RF: 0 lamotrigine 200 mg tablet 200 mg PO HS RF: 0 budesonide-formoterol [Symbicort] 160-4.5 mcg/actuation HFA aerosol inhaler 2 puff INHALATION BID RF: 0 multivitamin [One Daily Multivitamin] Tablet 1 tab PO QAM RF: 0 cyanocobalamin (vitamin B-12) [Vitamin B-12] 1,000 mcg Tablet 1,000 mcg PO QAM RF: 0 aspirin [Aspirin Low Dose] 81 mg Tablet,Delayed Release (Dr/Ec) 81 mg PO HS RF: 0 coenzyme Q10 [Co Q-10] 100 mg Capsule 200 mg PO HS RF: 0 omega 1-ucb-ckd-fish oil [Fish Oil] 1,000 mg (120 mg-180 mg) Capsule 1 cap PO BID RF: 0 melatonin 10 mg Tablet 10 mg PO HS RF: 0 cholecalciferol (vitamin D3) [Vitamin D3] 25 mcg (1,000 unit) capsule 2,000 unit PO QAM RF: 0 duloxetine [Cymbalta] 30 mg Capsule,Delayed Release(Dr/Ec) 30 mg PO QAM RF: 0 gabapentin 600 mg tablet 600 mg PO TID RF: 0 Botox 100 unit Recon Soln 100 unit subcut Q3M RF: 0 albuterol sulfate 2.5 mg /3 mL (0.083 %) solution for nebulization 2.5 mg inhalation Q4H PRN (Reason: Shortness Of Breath Or Wheezing) RF: 0 sucralfate 1 gram tablet 1 g PO UD PRN (Reason: Abdominal Pain) RF: 0 ascorbic acid (vitamin C) [Vitamin C] 500 mg Tablet 500 mg PO QAM RF: 0 srwykrxwzr-bfklplntqbyeu-icwx [Esgic] 50-325-40 mg tablet 1 tab PO BID PRN (Reason: headache) RF: 0 lidocaine 5 % adhesive patch,medicated 1 patch TOP DAILY PRN (Reason: pain) Qty: 15 RF: 0 Discharge Orders: Discharge Order (Routine); Ordered 07/17/21 Ordered By: Maia Bourgeois Admission Data Admit Date/Time: 07/16/21 19:07 Attending Provider: Yasmany Govea Admit Provider: Kota Iyer Primary Care Provider: Julio César Diop Other Providers: Julio César Del Angel Resident Activity Tracking Resident Involvement: Resident Care Provided Care Provided: Adult Hospital Medicine
--- NOTE | 2021-07-17 14:50 | Electrocardiogram Report ---
Test Reason : Blood Pressure : / mmHG Vent. Rate : 084 BPM Atrial Rate : 084 BPM P-R Int : 144 ms QRS Dur : 098 ms QT Int : 408 ms P-R-T Axes : 064 052 097 degrees QTc Int : 482 ms Poor data quality, interpretation may be adversely affected Normal sinus rhythm Prolonged QT Abnormal ECG When compared with ECG of 16-JUN-2019 14:03, No significant change was found Confirmed by Sameer Ramirez ([id number]) on 07/17/2021 2:50:01 PM Referred By: REFERRED SELF Confirmed By:Sameer Ramirez
--- NOTE | 2021-07-17 18:46 | Billing Data ---
Date of Service July 17, 2021 Coding Level of Care Code D/C DAY MANAGEMENT <30 MINS
--- NOTE | 2021-07-18 13:19 | Billing Data ---
Date of Service July 16, 2021 Coding Level of Care Code 92385 Initial Inpt Care Lvl 2
== END 2021-07-17 15:40 | disposition home or self-care (01) | DRG 192 ==
LOC: ED 15:05 → INTOOBSV 19:07 → SUATTDRO 19:07 → 3N 19:07
DX: Z20.822 Contact with and (suspected) exposure to COVID-19; F17.210 Nicotine dependence, cigarettes, uncomplicated; G43.119 Migraine with aura, intractable, without status migrainosus; Z91.041 Radiographic dye allergy status; R09.02 Hypoxemia; R19.7 Diarrhea, unspecified; J44.1 Chronic obstructive pulmonary disease with (acute) exacerbation; I25.2 Old myocardial infarction; K21.9 Gastro-esophageal reflux disease without esophagitis; Z95.1 Presence of aortocoronary bypass graft; I10 Essential (primary) hypertension; I65.23 Occlusion and stenosis of bilateral carotid arteries; Z79.82 Long term (current) use of aspirin; E11.9 Type 2 diabetes mellitus without complications; Z95.5 Presence of coronary angioplasty implant and graft

== ENCOUNTER 2023-01-04 05:48 | Inpatient (IN) ==
--- NOTE | 2022-11-05 11:44 | PAT Medication Instructions ---
Medication Instructions Date of Service November 05, 2022 Home Medications Medication Instructions Recorded albuterol sulfate 90 mcg/actuation 2 puff inhalation Q6H PRN 04/24/20 aerosol inhaler (Ventolin HFA) Shortness Of Breath #8.5 grams lidocaine 5 % topical patch 1 patch topical DAILY PRN pain #15 02/12/21 ea umeclidinium 62.5 mcg-vilanterol 1 inh inhalation QAM #60 ea 05/15/21 25 mcg/actuation powdr for inhalation (Anoro Ellipta) pantoprazole 40 mg tablet,delayed 40 mg PO QAM #90 tabs 10/13/21 release inbzbhqetf-dlowzrcpzrhwz-rqxytpru 1 tab PO BID PRN headache 30 days 11/02/21 50 mg-325 mg-40 mg tablet (Esgic) #10 tabs sucralfate 1 gram tablet See Rx Instructions .Route 03/01/22 .COMPLEX #120 tabs roflumilast 500 mcg tablet 500 mcg PO QAM #90 tabs 06/11/22 (Daliresp) azithromycin 250 mg tablet 250 mg PO MOWEFR 30 days #18 tabs 07/23/22 lasmiditan 100 mg tablet (Reyvow) 100 mg PO DAILY PRN migraine 08/05/22 headache #8 tabs nitroglycerin 0.4 mg sublingual 0.4 mg sublingual UD PRN chest 09/06/22 tablet (Nitrostat) pain 30 days #25 tabs ranolazine 500 mg tablet,extended 500 mg PO BID #60 tabs 11/04/22 release,12 hr aspirin 81 mg tablet,delayed release (Rula Low Dose Aspirin) 81 mg PO HS coenzyme Q10 100 mg capsule (Co Q-10) 200 mg PO HS cyanocobalamin (vitamin B-12) 1,000 mcg tablet (Vitamin B-12) 1,000 mcg PO QAM melatonin 10 mg tablet 10 mg PO HS multivitamin (One Daily Multivitamin tablet) 1 tab PO QAM omega 8-mdk-gqq-fish oil 1,000 mg (120 mg-180 mg) capsule (Fish Oil) 1 cap PO BID duloxetine 30 mg capsule,delayed release (Cymbalta) 30 mg PO QAM albuterol sulfate 2.5 mg/3 mL (0.083 %) solution for nebulization 2.5 mg inhalation Q4H PRN gabapentin 600 mg tablet 600 mg PO TID onabotulinumtoxinA 100 unit solution for injection (Botox) 100 unit subcut Q3M atorvastatin 80 mg tablet 80 mg PO QPM budesonide-formoterol HFA 160 mcg-4.5 mcg/actuation aerosol inhaler (Symbicort) 2 puff inhalation BID lamotrigine 200 mg tablet 200 mg PO HS bupropion HCl 150 mg tablet,12 hr sustained-release (Wellbutrin SR) 150 mg PO BID cholecalciferol (vitamin D3) 25 mcg (1,000 unit) capsule (Vitamin D3) 2,000 unit PO QAM albuterol sulfate 90 mcg/actuation aerosol inhaler (Ventolin HFA) 2 puff inhalation Q6H PRN magnesium oxide 400 mg PO HS ascorbic acid (vitamin C) 500 mg tablet (Vitamin C) 500 mg PO QAM lidocaine 5 % topical patch 1 patch topical DAILY PRN umeclidinium 62.5 mcg-vilanterol 25 mcg/actuation powdr for inhalation (Anoro Ellipta) 1 inh inhalation QAM fluticasone propionate 110 mcg/actuation HFA aerosol inhaler (Flovent HFA) 2 inh inhalation BID tramadol 50 mg tablet 100 mg PO Q8H PRN pantoprazole 40 mg tablet,delayed release 40 mg PO QAM qfkgcvogve-hhxnkyuzdeboo-vvdjuigj 50 mg-325 mg-40 mg tablet (Esgic) 1 tab PO BID PRN quetiapine 300 mg tablet 150 mg PO HS quetiapine 50 mg tablet 25 - 50 mg PO DIRECTED PRN sucralfate 1 gram tablet See Rx Instructions .Route .COMPLEX roflumilast 500 mcg tablet (Daliresp) 500 mcg PO QAM azithromycin 250 mg tablet 250 mg PO MOWEFR lasmiditan 100 mg tablet (Reyvow) 100 mg PO DAILY PRN nitroglycerin 0.4 mg sublingual tablet (Nitrostat) 0.4 mg sublingual UD PRN Cbd Gummies 1 dose PO DAILY PRN baclofen 10 mg tablet 10 mg PO HS buspirone 10 mg tablet 10 mg PO BID lamotrigine 150 mg tablet 150 mg PO QAM ranolazine 500 mg tablet,extended release,12 hr 500 mg PO BID riboflavin (vitamin B2) 400 mg tablet 400 mg PO QAM risperidone 0.5 mg tablet 0.5 mg PO QAM risperidone 1 mg tablet 1 mg PO HS verapamil 360 mg 24 hr capsule,extended release 360 mg PO HS Continue as directed azithromycin 250 mg tablet 250 mg PO MOWEFR nitroglycerin 0.4 mg sublingual tablet (Nitrostat) 0.4 mg sublingual UD PRN(if needed) ASK your surgeon for instructions velmmxlove-juvutrjiqoqhs-dbhpmtyj 50 mg-325 mg-40 mg tablet (Esgic) 1 tab PO BID PRN ASK your prescriber and surgeon aspirin 81 mg tablet,delayed release (Rula Low Dose Aspirin) 81 mg PO HS onabotulinumtoxinA 100 unit solution for injection (Botox) 100 unit subcut Q3M quetiapine 300 mg tablet 150 mg PO HS quetiapine 50 mg tablet 25 - 50 mg PO DIRECTED PRN roflumilast 500 mcg tablet (Daliresp) 500 mcg PO QAM lasmiditan 100 mg tablet (Reyvow) 100 mg PO DAILY PRN risperidone 0.5 mg tablet 0.5 mg PO QAM risperidone 1 mg tablet 1 mg PO HS STOP taking 2 weeks before surgery (or as soon as possible if surgery is within 2 weeks) coenzyme Q10 100 mg capsule (Co Q-10) 200 mg PO HS omega 0-hvb-hen-fish oil 1,000 mg (120 mg-180 mg) capsule (Fish Oil) 1 cap PO BID Cbd Gummies 1 dose PO DAILY PRN STOP taking 24 hours before surgery lidocaine 5 % topical patch 1 patch topical DAILY PRN DO NOT take the morning of surgery cyanocobalamin (vitamin B-12) 1,000 mcg tablet (Vitamin B-12) 1,000 mcg PO QAM multivitamin (One Daily Multivitamin tablet) 1 tab PO QAM cholecalciferol (vitamin D3) 25 mcg (1,000 unit) capsule (Vitamin D3) 2,000 unit PO QAM ascorbic acid (vitamin C) 500 mg tablet (Vitamin C) 500 mg PO QAM riboflavin (vitamin B2) 400 mg tablet 400 mg PO QAM Take morning of surgery With a small sip of water, OTHERWISE NOTHING TO EAT OR DRINK AFTER MIDNIGHT: duloxetine 30 mg capsule,delayed release (Cymbalta) 30 mg PO QAM albuterol sulfate 2.5 mg/3 mL (0.083 %) solution for nebulization 2.5 mg inhalation Q4H PRN(use if needed; please bring with you to hospital day of surgery if possible) gabapentin 600 mg tablet 600 mg PO TID budesonide-formoterol HFA 160 mcg-4.5 mcg/actuation aerosol inhaler (Symbicort) 2 puff inhalation BID bupropion HCl 150 mg tablet,12 hr sustained-release (Wellbutrin SR) 150 mg PO BID albuterol sulfate 90 mcg/actuation aerosol inhaler (Ventolin HFA) 2 puff inhalation Q6H PRN(use if needed; please bring with you to hospital day of surgery if possible) umeclidinium 62.5 mcg-vilanterol 25 mcg/actuation powdr for inhalation (Anoro Ellipta) 1 inh inhalation QAM fluticasone propionate 110 mcg/actuation HFA aerosol inhaler (Flovent HFA) 2 inh inhalation BID tramadol 50 mg tablet 100 mg PO Q8H PRN(if needed) pantoprazole 40 mg tablet,delayed release 40 mg PO QAM buspirone 10 mg tablet 10 mg PO BID lamotrigine 150 mg tablet 150 mg PO QAM ranolazine 500 mg tablet,extended release,12 hr 500 mg PO BID Take evening before surgery melatonin 10 mg tablet 10 mg PO HS albuterol sulfate 2.5 mg/3 mL (0.083 %) solution for nebulization 2.5 mg inhalation Q4H PRN(if needed) gabapentin 600 mg tablet 600 mg PO TID atorvastatin 80 mg tablet 80 mg PO QPM budesonide-formoterol HFA 160 mcg-4.5 mcg/actuation aerosol inhaler (Symbicort) 2 puff inhalation BID lamotrigine 200 mg tablet 200 mg PO HS bupropion HCl 150 mg tablet,12 hr sustained-release (Wellbutrin SR) 150 mg PO BID albuterol sulfate 90 mcg/actuation aerosol inhaler (Ventolin HFA) 2 puff inhalation Q6H PRN(if needed) magnesium oxide 400 mg PO HS fluticasone propionate 110 mcg/actuation HFA aerosol inhaler (Flovent HFA) 2 inh inhalation BID tramadol 50 mg tablet 100 mg PO Q8H PRN(if needed) baclofen 10 mg tablet 10 mg PO HS buspirone 10 mg tablet 10 mg PO BID ranolazine 500 mg tablet,extended release,12 hr 500 mg PO BID verapamil 360 mg 24 hr capsule,extended release 360 mg PO HS Other Notes If you have any questions please call us at [phone] or [phone] or [phone] or [phone]
--- NOTE | 2022-12-08 17:41 | Myocardial Perfusion Study ---
Date of Service December 08, 2022 Myocardial Perfusion Study [facility] Myocardial Perfusion Study Report LEXISCAN STRESS MYOCARDIAL PERFUSION IMAGING STUDY. Brief description: Rest portion-at 11:27 AM the patient was injected with 10.2 mCi of Tc 99m Cardiolite IV. 1 hour following injection, myocardial perfusion imaging of the heart was performed in multiple projections. Stress portion-baseline heart rate, blood pressure, and EKG were obtained. These parameters were continuously monitored and intermittently recorded throughout stress and recovery. Patient was infused with 0.4 mg IV Lexiscan. T his was followed immediately by injection of 31.95 mCi of Tc 99m Cardiolite IV. 30 minutes following infusion, myocardial perfusion imaging of the heart was performed in multiple projections identical to those used during the rest portion. Patient reported lightheadedness and mild nausea during infusion. Electrocardiographic and hemodynamic findings: 1. Baseline heart rate 61 bpm minerva to a maximum of 78 bpm with Lexiscan infusion. 2. Baseline blood pressure of 144/76 mmHg minerva to a maximum of 153/74 mmHg with Lexiscan infusion. 3. Baseline EKG demonstrated normal sinus rhythm with incomplete right bundle branch block. There were no diagnostic ST segment or T wave changes with Lexiscan infusion. No Lexiscan induced arrhythmias. Myocardial perfusion imaging findings: 1. Raw data analysis demonstrates increased GI uptake, increased liver uptake, and minimal breast attenuation. This is a good quality study. 2. Gated myocardial perfusion imaging demonstrates normal EF calculated at 59%. There was mild hypokinesis of the basal and mid anterior septum, anterior, and anterolateral myocardium. 3. There is a medium in size, mild to moderate intensity, almost entirely fixed myocardial perfusion defect involving the apex, mid to distal anterior, anteroseptal, and the lateral myocardium. These findings are consistent with my ocardial infarction with minimal demetrius-infarct ischemia. 4. This study is moderately abnormal. Low risk for ischemia. No prior studies for comparison. Consider discussion with cardiology. [facility] [place] Myocardial perfusion code Indication for Procedure (1) Preoperative cardiovascular examination: (2) S/P CABG x 4: (3) CAD, multiple vessel: Procedure Code Procedure 1: Myocardial Perfusion Codes: 73214 Cardiovascular Stress Test, multiple Procedure 2: Myocardial Perfusion Codes: 56293 Cardiovascular Stress Test, supervision only Procedure 3: Myocardial Perfusion Codes: 50096 Cardiovascular Stress Test, interpretation and report
--- NOTE | 2022-12-20 10:48 | Anesthesiology Consultation ---
Date of Service December 20, 2022 Assessment & Plan (1) Encounter for pre-operative examination: - COVID screening: Per assessment on 12/20: No known COVID-19 positive contacts or current COVID-19 related symptoms. Travel screen negative. At surgeon discretion if preop Covid testing being done. - Outpatient joint assessment: Pt currently scheduled for inpatient pathway. If surgeon requests review for outpatient joint pathway, patient is not recommended candidate for outpatient joint program from anesthesia standpoint. - Cardiology visit (11/04/22): "Patient is scheduled to undergo Right TKA with Dr. Snyder on 11/30/22.. episodes of intermittent chest pain are concerning because of her extensive cardiac history and the fact that the chest discomfort improves with nitroglycerin. This could certainly be secondary to progression of her CAD. We discussed this possibility at length. We discussed options for dealing with her symptoms and CAD -- including increasing her antianginal regimen to see if we can get her symptoms controlled and then send her for surgery or we could pursue further ischemic workup -- knowing that if this is abnormal it would likely lead to a Cardiac Catheterization +/- PCI -- which would delay her surgery for a minimum of 6 months. Patient is willing to accept these conditions and delay her surgery if necessary. Recommend the following.. Schedule Lexiscan Cardiolite in the near future.. Add Ranexa 500 mg b.i.d., if symptoms persist increased to 1000 mg b.i.d.. If the patient's Lexiscan Cardiolite shows no evidence of myocardial ischemia she will be considered an intermediate cardiac surgical risk for upcoming elective joint replacement surgery. If any ischemia is present,we will proceed with invasive workup. Patient is to call if any problems, questions, or change in clinical status. Return to the office as needed or 1 week after nuclear study is completed in order to review the results, make further recommendations regarding upcoming surgery, and to reassess her symptoms.. History of carotid artery disease.. Carotid ultrasound May 03, 2022 with estimated gradients any% bilateral ICA stenoses. Greater than 50% left external carotid artery stenosis. Antegrade flow in vertebral arteries. No significant change compared to study of June 08, 2021." - Cardiology workload note (12/09/22): Reviewed stress test findings > "she may proceed with surgery as planned" - Patient acceptable risk for surgery pending surgeon-ordered PCP preop evaluation ([facility], appt 12/27). Chart Review Chart Review: Patient seen in Pre Admission Testing Teaching & Discussion Pre-Anesthesia Teaching/Discussion Notes: Instructed NPO after midnight before surgery,except medications with 15 cc of water. Medication instructions provided according to the PAT guidelines. History Surgery Operation Date: 01/04/23 07:00 Proposed Procedures p Right Total Knee Arthroplasty - Narendra Snyder MD Height/Weight Height: 5 ft 3 in Weight: 72.5 kg Allergies Allergy/AdvReac Type Severity Reaction Status Date / Time nitrofurantoin Allergy Intermediate HIVES Verified 12/10/22 15:22 senna Allergy Intermediate HIVES Verified 12/20/22 14:52 (FROM X-Prep), TAKES SENOKOT AT HOME Iodinated Contrast Media Allergy Mild RASH Verified 12/10/22 15:22 rizatriptan AdvReac Intermediate NAUSEA AND Verified 12/10/22 15:22 VOMITING sumatriptan AdvReac Intermediate WORSENED Verified 12/10/22 15:22 HEADACHE zolpidem AdvReac Intermediate NIGHTMARES Verified 12/10/22 15:22 Beta-Blockers AdvReac Mild HYPOTENSION Verified 12/10/22 15:22 (Beta-Adrenergic Bloc Medications Home Medications Medication Instructions Recorded Confirmed Last Taken aspirin 81 mg tablet,delayed 81 mg PO HS 07/27/18 12/10/22 01/30/22 release (Rula Low Dose Aspirin) coenzyme Q10 100 mg capsule (Co 200 mg PO HS 07/27/18 12/10/22 01/30/22 Q-10) cyanocobalamin (vitamin B-12) 1,000 mcg PO QAM 07/27/18 12/10/22 01/31/22 1,000 mcg tablet (Vitamin B-12) melatonin 10 mg tablet 10 mg PO HS 07/27/18 12/10/22 01/30/22 multivitamin (One Daily 1 tab PO QAM 07/27/18 12/10/22 01/31/22 Multivitamin tablet) omega 9-smp-zry-fish oil 1,000 mg 1 cap PO BID 07/27/18 12/10/22 01/31/22 08:00 (120 mg-180 mg) capsule (Fish Oil) duloxetine 30 mg capsule,delayed 30 mg PO QAM 06/04/19 12/10/22 01/31/22 release (Cymbalta) albuterol sulfate 2.5 mg/3 mL 2.5 mg inhalation Q4H PRN 06/16/19 12/10/22 09/21/21 (0.083 %) solution for nebulization Shortness Of Breath Or Wheezing gabapentin 600 mg tablet 600 mg PO TID 06/16/19 12/10/22 01/31/22 14:00 onabotulinumtoxinA 100 unit 100 unit subcut Q3M 06/16/19 12/10/22 08/18/21 solution for injection (Botox) atorvastatin 80 mg tablet 80 mg PO QPM 10/04/19 12/10/22 01/30/22 budesonide-formoterol HFA 160 2 puff inhalation BID 12/04/19 12/10/22 01/31/22 08:00 mcg-4.5 mcg/actuation aerosol inhaler (Symbicort) lamotrigine 200 mg tablet 200 mg PO HS 12/04/19 12/10/22 01/30/22 bupropion HCl 150 mg tablet,12 hr 150 mg PO BID 04/17/20 12/10/22 01/31/22 08:00 sustained-release (Wellbutrin SR) cholecalciferol (vitamin D3) 25 2,000 unit PO QAM 04/17/20 12/10/22 01/31/22 mcg (1,000 unit) capsule (Vitamin D3) albuterol sulfate 90 mcg/actuation 2 puff inhalation Q6H PRN 04/24/20 12/10/22 09/20/21 aerosol inhaler (Ventolin HFA) Shortness Of Breath #8.5 grams magnesium oxide 400 mg PO HS 10/30/20 12/10/22 01/30/22 ascorbic acid (vitamin C) 500 mg 500 mg PO QAM 11/20/20 12/10/22 01/31/22 tablet (Vitamin C) lidocaine 5 % topical patch 1 patch topical DAILY PRN pain #15 02/12/21 12/10/22 Unknown ea umeclidinium 62.5 mcg-vilanterol 1 inh inhalation QAM #60 ea 05/15/21 12/10/22 01/31/22 25 mcg/actuation powdr for inhalation (Anoro Ellipta) fluticasone propionate 110 2 inh inhalation BID 08/26/21 12/10/22 01/31/22 08:00 mcg/actuation HFA aerosol inhaler (Flovent HFA) tramadol 50 mg tablet 100 mg PO Q8H PRN pain 10/01/21 12/10/22 Unknown pantoprazole 40 mg tablet,delayed 40 mg PO QAM #90 tabs 10/13/21 12/10/22 01/31/22 release nfcxqhskwn-rvipsyyuauxpw-vpbsslmu 1 tab PO BID PRN headache 30 days 11/02/21 12/10/22 Unknown 50 mg-325 mg-40 mg tablet (Esgic) #10 tabs quetiapine 300 mg tablet 150 mg PO HS 01/31/22 12/10/22 01/30/22 quetiapine 50 mg tablet 25 - 50 mg PO DIRECTED PRN 01/31/22 12/10/22 Unknown ANXIETY ATTACKS sucralfate 1 gram tablet See Rx Instructions .Route 03/01/22 12/10/22 Unknown .COMPLEX #120 tabs roflumilast 500 mcg tablet 500 mcg PO QAM #90 tabs 06/11/22 12/10/22 Unknown (Daliresp) azithromycin 250 mg tablet 250 mg PO MOWEFR 30 days #18 tabs 07/23/22 12/10/22 Unknown lasmiditan 100 mg tablet (Reyvow) 100 mg PO DAILY PRN migraine 08/05/22 12/10/22 Unknown headache #8 tabs nitroglycerin 0.4 mg sublingual 0.4 mg sublingual UD PRN chest 09/06/22 12/10/22 Unknown tablet (Nitrostat) pain 30 days #25 tabs Cbd Gummies 1 dose PO DAILY PRN Pain 11/04/22 12/10/22 Unknown baclofen 10 mg tablet 10 mg PO HS 11/04/22 12/10/22 Unknown buspirone 10 mg tablet 10 mg PO BID 11/04/22 12/10/22 Unknown lamotrigine 150 mg tablet 150 mg PO QAM 11/04/22 12/10/22 Unknown ranolazine 500 mg tablet,extended 500 mg PO BID #60 tabs 11/04/22 12/10/22 Unknown release,12 hr riboflavin (vitamin B2) 400 mg 400 mg PO QAM 11/04/22 12/10/22 Unknown tablet risperidone 0.5 mg tablet 0.5 mg PO QAM 11/04/22 12/10/22 Unknown risperidone 1 mg tablet 1 mg PO HS 11/04/22 12/10/22 Unknown verapamil 360 mg 24 hr 360 mg PO HS #90 caps 11/11/22 12/10/22 Unknown capsule,extended release Past Medical History Medical History Anemia Benign essential hypertension Bilateral carotid artery disease follows with Dr. Joay > 70% R/L ICA stenosis per 04/2022 carotid doppler, unchanged compared to 06/2021 per report. Repeat imaging in one year recommended per [facility] Bilateral lumbar radiculopathy Cauda equina syndrome Per remote records, pt unaware Colon polyp Hx Coronary artery disease 2009 > stent CABG x4 (2010) 2010 > stent Depression Dyslipidemia Emphysema of lung Follows with Dr. Gay GERD (gastroesophageal reflux disease) Heart attack 2009 > stent 2010 > stent History of COVID-19 08/2022 (home test)- cough, COPD flare > "resolved" History of home oxygen therapy 2L O2 PRN IBS (irritable bowel syndrome) Kidney stones No current issues per patient Low back problem Lymphedema Migraine with aura and without status migrainosus, not intractable PTSD (post-traumatic stress disorder) Follows with psych + counselor Some short-term and long-term memory issues (undetermined if r/t PTSD per patient) Radicular pain of lumbosacral region Restless legs syndrome Sciatica Seasonal allergies Transient ischemic attack (TIA) Several years ago, Follows with [facility] (Dr. Ordaz) Exercise / Class Metabolic Activity III < 4 Walking/Shop/Light housework Past Family History Family History Daughter Atrial septal defect Son Atrial septal defect Sister Crohn's disease Family history of [place] (myocardial infarction) Cancer Mother Cervical cancer Father Diabetes Coronary heart disease Cancer Brother Nephroblastoma Cancer Grandmother (Maternal) Diabetes Grandmother (Paternal) Diabetes Other No family history of adverse response to anesthesia No significant family history Past Surgical History Surgical History H/O heart bypass surgery CABG X4 (08/2010) H/O unilateral salpingectomy History of back surgery X6 TOTAL (LUMBAR) History of cardiac cath 2009 > stent 2010 > stent History of section x1 History of cholecystectomy History of colonoscopy History of ectopic R/T TUBAL History of hysterectomy History of lithotripsy History of right knee surgery History of shoulder surgery RIGHT History of total knee replacement RIGHT S/P epidural steroid injection caudal epidural steroid injection Past Anesthesia History No Hx of Anesthesia Complications and No Family Hx of Anesthesia Complications History of PONV No Hx of PONV and Hx of Motion Sickness (rare) Social History Smoking Status: Former smoker tobacco type: cigarettes Do You Dip or Chew Tobacco: No Smoking End Date: Quit 17-18 MONTHS AGO Hx Alcohol Use: No Hx Substance Use: No substance use type: does not use Review of Systems Patient denies chest pain, shortness of breath, fever, chills, cough, wheezing, palpitations. Physical Exam Vital Signs VITALS BP 133/77 P 67 TEMP 97.8 SP02 95%RA RESP 16 PHYSICAL Mildly decreased cervical extension range of motion. Full TMJ range of motion. TMD 3.5 finger breaths Mallampati Score 1 Dentition: full upper denture, edentulous Lungs: clear throughout to auscultation Cardiac: regular rate and rhythm, no murmurs noted Spine: normal Carotid arteries: negative bruit Extremities: no LE edema Lab Results Anesthesia Preop Results Results Anesthesia Widget: WBC 5.32 K/ul (4.8-10.8) 12/20/22 Hgb 12.3 g/dl (12.0-16.0) 12/20/22 Hct 38.4 % (37.0-47.0) 12/20/22 Plt 227 K/uL (130-400) 12/20/22 Na 141 mmol/L (136-145) 12/20/22 K 4.2 mmol/L (3.5-5.1) 12/20/22 Cl 106 mmol/L (98-107) 12/20/22 CO2 28 mmol/L (21-32) 12/20/22 BUN 22 mg/dl (6-23) 12/20/22 Creat 0.92 mg/dl (0.6-1.2) 12/20/22 Glucose Level 94 mg/dl (70-99(Fasting)) 12/20/22 PT 10.0 Seconds (9.0-12.0) 12/20/22 PTT 25.1 Seconds (21.0-31.0) 12/20/22 INR 0.9 (0.9-1.1) 12/20/22 Blood Type A Positive 12/20/22 Antibody Screen NEGATIVE 12/20/22 Testing Electrocardiogram Date: 11/04/22 NSR at 94bpm. iRBBB. ST/TWA, consider anterior ischemia. Stress test done 12/07/22* Chest X-Ray Date: 12/20/22 FINDINGS: Median sternotomy wires are unchanged. Calcified aortic knob is seen. The lungs are clear. No evidence of pleural effusion or pneumothorax. Thoracic kyphoplasty is seen. Posterior fixation hardware is seen in the lumbar spine. IMPRESSION: No acute chest disease. Stress Test Date: 12/08/22 Baseline EKG demonstrated normal sinus rhythm with incomplete right bundle branch block. There were no diagnostic ST segment or T wave changes with Lexiscan infusion. No Lexiscan induced arrhythmias. Raw data analysis demonstrates increased GI uptake, increased liver uptake, and minimal breast attenuation. This is a good quality study. Gated myocardial perfusion imaging demonstrates normal EF calculated at 59%. There was mild hypokinesis of the basal and mid anterior septum, anterior, and anterolateral myocardium. There is a medium in size, mild to moderate intensity, almost entirely fixed myocardial perfusion defect involving the apex, mid to distal anterior, anteroseptal, and the lateral myocardium. These findings are consistent with myocardial infarction with minimal demetrius-infarct ischemia. Low risk for ischemia. Other Testing Carotid doppler Date: 05/03/22 >70% GRACE/LICA stenosis. >50% left ECA stenosis. Antegrade flow in bilateral vertebral arteries. Compared with previous exam 06/08/21, results are unchanged per report COVID-19 Risk Screen Screening Information COVID-19 Screen Date: 12/20/22 Exposure 21 Days Family/Household +COVID Last 21 Days: No Exposure 10 Days Any COVID Exposure Last 10 Days: No Symptoms Last 10 Days Experienced COVID Sx Last 10 Days: No + COVID 0-90 Days COVID + in Last 0-90 Days: No
[~2023-01-04 05:48] MED LIST changes: -ACET-1693 PO; -ACETAMINOPHEN 500 MG TAB PO SCH; -ASPI81TA28 PO; -ATOR-26 PO; -ATROPINE SULFATE 0.1 MG/ML 5ML SYR IV PRN; -BACL1TAB PO; -BUPIVACAINE 0.5 % 5 MG/1 ML MPF 30ML VIAL ONE; -BUPRTAB51 PO; -CEFAZOLIN 2000MG IV PUSH 15 ML IV SCH; -CHOL100027 PO; -COEN100C15 PO; -CYAN10005 PO; -DEXAMETHASONE SOD INJ 4 MG/ML VIAL ONE; -DICL1GEL12 TOP; -DULO60CA44 PO; -EpHEDrine SULFATE INJ 50 MG/ML AMP IV PRN; -EpHEDrine SULFATE INJ 50 MG/ML AMP ONE; -EpINEphrine HCL INJ 1 MG/ML 1ML SYRINGE ONE; -EpINEphrine INJ 1MG/ML AMP 1 MG/ML AMP ONE; -FAMOTIDINE 20 MG TAB PO SCH; -FENTANYL CITRATE INJ 50 MCG/1 ML 2 ML VIAL IV PRN; -FENTANYL CITRATE INJ 50 MCG/1 ML 2 ML VIAL ONE; -GABA-1220 PO; -HYDR-5688 PO; -KETO10TA PO; -LACTATED RINGER'S 1000ML 1,000 ML IV SCH; -LACTATED RINGER'S 1000ML IV SCH; -LIDO1CRE31 TOP; -LIDOCAINE HCL 2% 2 ML VIAL (20MG/ML) ONE; -MELATAB2 PO; -MIDAZOLAM HCL 1 MG/ML 2ML VIAL ONE; -MULT-506 PO; -NTRGSL/4 UT; -OMEG10007 PO; -ONDANSETRON INJ 2 MG/ML 2 ML VIAL IV PRN; -ONDANSETRON INJ 2 MG/ML 2 ML VIAL ONE; -OXYC-57 PO; -OXYCODONE/ACETAMINOPHEN 5-325 TAB PO PRN; -PANT40TA PO; -PHENYLEPHRINE HCL INJ 10 MG/ML VIAL ONE; -POLY335019 PO; -PROPOFOL IV EMULSION 10 MG/ML 20 ML VIAL ONE; -ROPIVACAINE 0.5% 5 MG/ML 30 ML VIAL ONE; +ROPIVACAINE 0.5% HCL/PF 150 MG, BUPIVACAINE 0.75% MPF 20 ML, EPINEPHrine 0.15 MG, Ketor... INFIL SCH; -SODIUM CHLORIDE 0.9% 1000ML 1,000 ML IV SCH; -TERI600S SQ; -TRAZ100T29 PO; -VERA240T21 PO; -VNTHFA/IN INH
[2023-01-04] MEDS ORDERED: METOCLOPRAMIDE HCL 10 MG TABLET PO SCH (06:00)
[2023-01-04] MEDS ORDERED: oxyCODONE HCL 10 MG TABCR (OxyCONTIN) PO SCH (06:00)
[2023-01-04] MEDS ORDERED: ACETAMINOPHEN 500 MG TAB PO SCH (06:00)
[2023-01-04] MEDS ORDERED: dexAMETHasone 4 MG TAB PO SCH (06:00)
[2023-01-04] MEDS ORDERED: traMADol HCL 50 MG TABLET PO SCH (06:00)
[2023-01-04] MEDS ORDERED: ceFAZolin 2000MG 2,000 MG/15 ML SYR IV SCH (06:00)
[2023-01-04] MEDS ORDERED: TRANEXAMIC ACID 1,000 MG **IV Intra-op IV SCH (06:00)
[2023-01-04] MEDS ORDERED: CeleBREX 200 MG CAP PO SCH (06:00)
[2023-01-04] MEDS ORDERED: ROPIVACAINE 0.5% HCL/PF 150 MG, BUPIVACAINE 0.75% MPF 20 ML, EPINEPHrine 0.15 MG, Ketor... INFIL SCH (06:00)
[2023-01-04] MEDS ORDERED: LR 500ML BOLUS, THEN 15ML/HR IV SCH (06:00)
[2023-01-04] MEDS ORDERED: TRANEXAMIC ACID 1,000 MG **IV Pre-op IV SCH (06:00)
[2023-01-04] MEDS ORDERED: LR 60ML/HR IV SCH (06:00)
[2023-01-04] MEDS ORDERED: ROPIVACAINE 0.5% 5 MG/ML 30 ML VIAL ONE (06:29)
[2023-01-04] MEDS ORDERED: BUPIVACAINE 0.5 % 5 MG/1 ML PF 10ML VIAL ONE (06:29)
--- NOTE | 2023-01-04 06:57 | History & Physical Bridge Note ---
Date of Service January 04, 2023 History & Physical Bridge Note I have examined the patient, reviewed the History & Physical and in the interval since the performance of the History & Physical I have noted the following changes of clinical significance: no changes noted
[2023-01-04] MEDS ORDERED: GABAPENTIN 600 MG TAB PO STA (06:58)
[2023-01-04] MEDS ORDERED: PROMETHAZINE HCL 6.25 MG in SODIUM CHLORIDE 0.9% 50 ML IV PRN (07:14)
[2023-01-04] MEDS ORDERED: ONDANSETRON INJ 2 MG/ML 2 ML VIAL IV PRN ×2 (07:14→14:08)
[2023-01-04] MEDS ORDERED: KETOROLAC 30 MG/ML VIAL IV PRN (07:14)
[2023-01-04] MEDS ORDERED: ATROPINE SULFATE 0.1 MG/ML 10ML SYR IV PRN (07:14)
[2023-01-04] MEDS ORDERED: HYDROmorphone INJ 1 MG/ML SYRINGE IV PRN ×2 (07:14→14:08)
[2023-01-04] MEDS ORDERED: MIDAZOLAM HCL 1 MG/ML 2ML VIAL ONE (07:31)
[2023-01-04] MEDS ORDERED: fentaNYL citrate PF 100 MCG/2 ML VIAL ONE (07:31)
[2023-01-04] MEDS ORDERED: VANCOMYCIN HCL 1000MG/20ML VIAL ONE ×2 (08:04→08:05)
[2023-01-04] MEDS ORDERED: ORTHO JOINT ANESTHETIC ONE (08:04)
[2023-01-04] MEDS ORDERED: ONDANSETRON INJ 2 MG/ML 2 ML VIAL ONE (09:00)
[2023-01-04] MEDS ORDERED: LIDOCAINE 2% 2 ML VIAL/AMP(20MG/ML) INFIL ONE (09:00)
[2023-01-04] MEDS ORDERED: PROPOFOL IV EMULSION 10 MG/ML 20 ML VIAL IV ONE (09:00)
[2023-01-04] MEDS ORDERED: GLYCOPYRROLATE 0.2 MG/ML VIAL ONE ×2 (09:00→11:08)
[2023-01-04] MEDS ORDERED: ROCURONIUM BROMIDE 10 MG/ML 5 ML VIAL IV ONE (09:00)
[2023-01-04] MEDS ORDERED: NEOSTIGMINE METHYLSULFATE 1 MG/ML 10ML VIAL ONE (11:08)
--- NOTE | 2023-01-04 11:42 | Post Operative Brief Note ---
Immediate Post Op Note v1 Date of Surgery January 04, 2023 Pre & Post Diagnosis Operation Date: 01/04/23 07:45 Pre-Op Diagnosis: Arthritis of Knee, Right Post-Op Diagnosis: Arthritis of Knee, Right I identified the patient and participated in the time-out.: Yes Procedure Operation Date: 01/04/23 07:45 Actual Procedures p Right Total Knee Arthroplasty(Right) - Narendra Snyder MD Surgeon Narendra Snyder MD Cs Associate dilcia Sierra fellow Estimated Blood Loss 20 Findings Consistent with Post-Op Diagnosis Specimens bone and sof t tissue right knee Anesthesia Type General Regional Complications none Disposition Accompanied Patient To Recovery: No Disposition: Recovery Room
--- NOTE | 2023-01-04 12:23 | Anesthesiology Progress Note ---
Date of Service January 04, 2023 Anesthesia Post Procedure Vital Signs Vital Signs: Temp Pulse Pulse Resp BP BP Pulse Ox 01/04/23 12:20 61 12 92/57 L 92 01/04/23 12:10 60 16 109/53 L 92 01/04/23 12:00 60 15 109/57 L 95 01/04/23 11:50 57 L 12 110/52 L 95 01/04/23 11:40 36.3 C L 56 L 14 109/50 L 99 01/04/23 06:39 01/04/23 06:39 36.4 C L 69 22 119/69 96 O2 Del Method O2 Flow Rate 01/04/23 12:20 Nasal Cannula 4 01/04/23 12:10 Nasal Cannula 3 01/04/23 12:00 Oxymask 5 01/04/23 11:50 Oxymask 6 01/04/23 11:40 Oxymask 6 01/04/23 06:39 Room Air 01/04/23 06:39 Room Air Pain Intensity Right Knee: Pain Intensity: 4 Transfer of Care Handoff Completed per policy Notes Mental Status: alert / awake / arousable Patient Amnestic to Procedure: Yes Nausea / Vomiting: adequately controlled Pain: adequately controlled Airway Patency, RR, SpO2: stable & adequate BP & HR: stable & adequate Hydration State: stable & adequate Anesthetic Complications: no major complications apparent
[2023-01-04] MEDS ORDERED: ALBUTEROL 0.083% NEBU SOLN 3 ML VIAL ONE (12:49)
[2023-01-04] MEDS ORDERED: ALBUTEROL 0.083% NEBU SOLN 3 ML VIAL NEB STA (12:50)
--- NOTE | 2023-01-04 12:58 | Operative Report (OR) ---
PREOPERATIVE DIAGNOSIS: Right knee osteoarthritis. POSTOPERATIVE DIAGNOSIS: Right knee osteoarthritis. PROCEDURE: Cemented right total knee arthroplasty with preservation of the apache patella. SURGEON: Narendra Snyder MD. PATTERN SHOP SUPERVISOR: Cecilia Garcia, physician's assistant athletic trainer, and Dr. Kishan López, fellow. ANESTHESIA: General with nerve block. INDICATIONS FOR PROCEDURE: The patient is 62 years old and is status post a right knee lateral compartment osteochondral allograft about 10+ years ago. She has developed progressive lateral compartment osteoarthritis, which has not responded to nonsurgical treatment. She has elected to proceed with operative intervention. PROCEDURE IN DETAIL: Informed consent was obtained. The patient identified the right knee, which I marked with my initials. A preoperative surgical timeout performed. Preoperative dose of IV antibiotics were given. She was taken to the operating room and positioned supine on the OR table. The anesthetic was administered. Tourniquet was applied to the right thigh and a bump under the right hip. A padded post under the right calf. Exam under anesthesia revealed range of motion 0/7/135 with neutral alignment, a well-healed midline incision and no effusion. The knee was stable in full extension and mid position. DVT prophylaxis intraoperatively with foot pumps. Postoperatively, early mobility, mechanical devices and chemo prophylaxis. Preoperative dose of TXA given. Limb exsanguinated with the Esmarch. Tourniquet was inflated to 250 mmHg. Midline longitudinal incision was made about 20 cm in length. This was followed by a medial parapatellar arthrotomy. There was some scarring in the anterior knee secondary to previous surgery. The patella had some small marginal osteophytes, but had normal-appearing cartilage throughout the patella with a small ossicle medially. The osteophytes were debrided. The patellar cartilage thickness was 3-4 mm without any significant softening. I elected to preserve the patella. A lateral release of just the synovial layer was performed as she had had some scarring over there from previous lateral arthrotomy. Sutures from the previous arthrotomy were noted in the quadriceps tendon and were excised/removed. A minimal medial release was performed off the tibia. There was extensive scarring in the front of the knee. The retropatellar fat pad was mobilized and resected, freeing up the contracted patellar tendon. Soft tissue on the anterior aspect of the distal femur was excised. The knee was then able to be easily flexed with the patella everted. The cruciate ligaments were intact and were sacrificed. Osteophytes were noted on the femur, tibia, and were removed. With the cruciate ligaments resected, the tibia was able to be subluxated. The lateral meniscus was largely deficient and macerated and torn. It was resected along with the medial meniscus. The medial compartment looked normal. The lateral compartment showed a large area in the central and posterior aspect of the tibia where there was no cartilage. There was a large area on the distal and posterior femur lateral condyle where there also was no cartilage. This consisted of the weightbearing area with the knee in about 45 degrees of flexion. The remainder of the trochlear and anterior lateral cartilage looked normal. The tibia was circumferentially exposed. A pilot boat operator hole was drilled into the tibia just in front of and slightly medial to the lateral tibial spine. An intramedullary alignment zohreh was inserted. The 0- degree cutting block was applied and sized to resect 8 off of the medial side, which was the higher side, corresponding to a 6 mm cut laterally. This cut was made and sized to a 3. Marginal osteophytes laterally were removed. Attention was turned to the femur where a pilot boat operator hole was drilled into the distal femur, followed by insertion of the distal femoral cutting guide. This was set 14 mm thick cut at a 5-degree valgus angle. This was distal to the collateral ligaments. The cut was made. The epicondylar axis was marked out. It was noted that the patient had significant sclerotic bone laterally, but in general decreased bone density noted throughout the knee, particularly in the anterior portion of the medial femoral condyle. The bone was intact, but soft in places. In regards to the lateral condyle, I could see where the previous osteochondral allograft was placed; however, this bone had completely incorporated and there was no osteonecrotic bone noted. There was a small 0.5 cm cyst noted on the posterolateral chamfer cut when that was done. I also drilled some pin holes into the lateral femoral condyle at this level on the chamfer cut as well as on the posterolateral tibia for cement incorporation as there is dense sclerosis in those areas. The epicondylar axis was marked out. The distal femoral sizing block was applied and identified as a 4, which was pinned and marked. The size 4 anterior down cutting block was applied. The anterior and posterior cuts were made along with the chamfers. Collateral ligaments protected. The box cutting guide was applied and lateralize and the box cut was made. Prior to doing this, the extension gap was asymmetric 10 with the knee held in full extension. With the sizing blocks in place, there was no springiness. The flexion gap was also symmetric 10. There is no laxity in either position. The femoral trial was applied. The tibia was exposed and prepared with the drill and punch. The femoral component was lateralized as well as the tibial component. The rotation was marked. Trialing was then performed. The knee did not quite reach full extension as it did with the sizing block. There was 1+ MCL laxity in mid position, the knee was stable at 0 and 90. The patella tracked well. I then removed the components, went ahead and reassessed the tibial cut. There was a posterior tibial osteophyte, which was removed and I also removed posterior femoral osteophytes. This along with some posterior capsular release and removal of the very remnant of the lateral meniscus allowed the knee to achieve full extension with the components in place. Again, the patella was not resurfaced. The trial components were removed. The bony surfaces were meticulously irrigated. The canals were plugged and ortho joint mix injected into the back of the knee, protecting the neurovascular structures. Two bags of Simplex P cement were mixed. Four grams of vancomycin were applied to the cement and thoroughly started with the powder before mixing of monomer. The cement went in a doughy state was then utilized to cement the implants into place. The osteoporotic related deficiency anteromedially was filled along with the cyst posterolaterally. Smears were placed on the posterior condyles and the implants were cemented into place, femur and then the tibia. The knee was held in full extension until cement had hardened and extraneous cement was removed. The tourniquet was let down after 105 minutes of inflation. The knee was at 0 degrees of extension. Stability was as mentioned previously. The knee was irrigated and soft tissues were kept moist throughout the surgical procedure. Meticulous hemostasis was performed. Trialing was done and then the final 10 mm thick polyethylene insert was applied. Irrigation and hemostasis. Extensor mechanism was closed above the equator of the patella with interrupted #2 FiberWire, below the equator of the patella with running and interrupted #1 Vicryl. The skin was closed in layers with 0 and 2-0 above the equator of the patella and 2-0 below. The skin was closed with angie and the leg was cleaned with wet and dry sponges and a soft sterile dressing was applied with Xeroform, 4 x 4s, ABD, soft wrap, full length Quan wrap and a knee immobilizer was sent with the patient. She was awakened from anesthesia without difficulty and taken to the recovery room in stable condition. The resected bone was sent for specimen. Counts were correct. Blood loss was estimated to be 20 mL. At the conclusion of the operation, I spoke to the patient's family, informed them of my findings. Postop instructions were given. Des Arc assisted flexion with the extensor mechanism closed was 125 degrees. The knee had full extension with a trace bit of springiness. There is 1+ MCL laxity at 30 degrees knee flexion, the knee was otherwise stable. Patellar tracking was fine with no hands technique. She will be rehabilitated according to the total knee rehab protocol. COMPONENTS INSERTED: J and J PFC Sigma rotating platform knee, size 3 mobile bearing Keel tibial tray with a size 4 posterior stabilized polyethylene insert, 10 mm thick. A size 4 posterior stabilized right femoral component. Job ID: [id number] [facility]
--- NOTE | 2023-01-04 13:04 | XRay Report ---
XR knee RT 1 or 2V routine CLINICAL HISTORY: Postoperative evaluation. COMPARISON: Leg length study December 20, 2022. Right knee radiographs October 11, 2022. FINDINGS: Alignment of the total right knee arthroplasty is anatomic. There is no periprosthetic fra cture or unexpected radiopaque foreign body. There are skin angie. IMPRESSION: Expected findings following total right knee arthroplasty. ACT 112: Negative or not required by law. Electronically signed by: Jose Wakefield M.D. 01/04/2023 1:02 PM
[2023-01-04] MEDS ORDERED: HYDROmorphone INJ 0.5 MG/0.5 ML SYR IV PRN (14:08)
[2023-01-04] MEDS ORDERED: ALBUTEROL 0.083% NEBU SOLN 3 ML VIAL INH PRN (14:08)
[2023-01-04] MEDS ORDERED: [UNRECOGNIZED DRUG - OTHER] PO PRN (14:08)
[2023-01-04] MEDS ORDERED: SODIUM CHLORIDE 0.9% 1000ML 1,000 ML IV SCH (14:08)
[2023-01-04] MEDS ORDERED: SUCRALFATE 1 GM TAB PO SCH (14:08)
[2023-01-04] MEDS ORDERED: NALOXONE HCL 0.4 MG/1 ML VIAL/CARP IV PRN (14:08)
[2023-01-04] MEDS ORDERED: ALBUTEROL HFA 8 GM INHALER INH PRN (14:08)
[2023-01-04] MEDS ORDERED: NITROGLYCERIN SL 0.4 MG/TAB TAB SL PRN (14:08)
[2023-01-04] MEDS ORDERED: bisacodyL 10 MG SUPP PR PRN (14:08)
[2023-01-04] MEDS ORDERED: MAGNESIUM HYDROXIDE SUSP 30 ML UDC PO PRN (14:08)
[2023-01-04] MEDS ORDERED: hydrALAZINE HCL 20 MG/ML VIAL IV PRN (14:08)
[2023-01-04] MEDS: ACETAMINOPHEN 500 MG TAB PO SCH ×2 (15:42→22:05)
[2023-01-04] MEDS: GABAPENTIN 600 MG TAB PO SCH ×2 (15:42→22:02)
[2023-01-04] MEDS: NICOTINE 14 MG/24 HR PATCH TD SCH (15:43)
--- NOTE | 2023-01-04 16:15 | Orthopedic Progress Note ---
Date of Service January 04, 2023 Assessment & Plan (1) S/P total knee arthroplasty: Plan: POD 0 - Right TKA with Dr. Snyder WBAT RLE with walker and knee immobilizer when out of bed PT/OT to start tomorrow Ice PRN Pain medication as prescribed Consult for Hospitalist for medical management placed, glycemic control consult placed. Lovenox for DVT prophylaxis. To start tomorrow morning. X-rays reviewed with patient. Will re-eval in AM. Plan for home with home health. Admission and Anticipated Discharge Date Admission Date: January 04, 2023 Subjective Doing well, sitting up in bed. Daughter at bedside. Mild pain in right knee. Tolerating a regular diet. No nausea or vomiting. Starting to feel some pain in right knee. Physical Exam Musculoskeletal: Right knee surgical dressings, clean, dry and intact. Distal sensation mostly normal, mild paresthesias throughout. Dorsalis pedis pulse 1+. Strength 4+/5. Results & Data Vital Signs (Past 12 Hours) Vital Signs Temp Pulse Pulse Resp BP BP Pulse Ox 01/04/23 15:12 36.6 C 73 17 116/69 94 01/04/23 14:39 36.7 C 73 17 108/69 94 01/04/23 14:19 01/04/23 14:18 36.8 C 69 18 96/62 L 94 01/04/23 13:50 65 13 106/50 L 94 01/04/23 13:40 66 16 105/68 92 01/04/23 13:30 63 12 95/65 L 92 01/04/23 13:20 36.8 C 66 14 100/70 92 01/04/23 13:10 64 13 99/68 L 90 01/04/23 13:00 63 14 100/42 L 92 01/04/23 12:50 62 14 112/55 L 90 01/04/23 12:40 61 16 102/49 L 90 01/04/23 12:30 64 16 113/66 89 L 01/04/23 12:20 61 12 92/57 L 92 01/04/23 12:10 60 16 109/53 L 92 01/04/23 12:00 60 15 109/57 L 95 01/04/23 11:50 57 L 12 110/52 L 95 01/04/23 11:40 36.3 C L 56 L 14 109/50 L 99 05/30/23 06:39 01/04/23 06:39 36.4 C L 69 22 119/69 96 O2 Del Method O2 Flow Rate 01/04/23 15:12 Nasal Cannula 3 01/04/23 14:39 Nasal Cannula 3 01/04/23 14:19 Oxymask 3 01/04/23 14:18 Oxymask 3 01/04/23 13:50 Nasal Cannula 3 01/04/23 13:40 Nasal Cannula 3 01/04/23 13:30 Nasal Cannula 3 01/04/23 13:20 Nasal Cannula 3 01/04/23 13:10 Nasal Cannula 3 01/04/23 13:00 Nasal Cannula 3 01/04/23 12:50 Nasal Cannula 4 01/04/23 12:40 Nasal Cannula 4 01/04/23 12:30 Nasal Cannula 4 01/04/23 12:20 Nasal Cannula 4 01/04/23 12:10 Nasal Cannula 3 01/04/23 12:00 Oxymask 5 01/04/23 11:50 Oxymask 6 01/04/23 11:40 Oxymask 6 01/04/23 06:39 Room Air 01/04/23 06:39 Room Air Diagnostic Findings XR knee RT 1 or 2V routine CLINICAL HISTORY: Postoperative evaluation. COMPARISON: Leg length study December 20, 2022. Right knee radiographs October 11, 2022. FINDINGS: Alignment of the total right knee arthroplasty is anatomic. There is no periprosthetic fracture or unexpected radiopaque foreign body. There are skin angie. IMPRESSION: Expected findings following total right knee arthroplasty.
[2023-01-04] MEDS: ceFAZolin 1000MG 1,000 MG/7.5 ML SYR IV SCH (18:02)
[2023-01-04] MEDS: KETOROLAC TROMETHAMINE 15 MG/ML VIAL IV SCH (18:07)
[2023-01-04] MEDS: oxyCODONE HCL IR 5 MG TAB (IMMEDIATE RELEASE) PO PRN (20:10)
[2023-01-04] MEDS ORDERED: FLUTICASONE HFA 110MCG INHALER INH SCH (21:00)
[2023-01-04] MEDS ORDERED: NON-FORMULARY MEDICATION (Coenzyme Q10 [Co Q-10] 100 mg Capsule) PO SCH (21:00)
[2023-01-04] MEDS: MELATONIN 3 MG TAB PO SCH (22:02)
[2023-01-04] MEDS: QUEtiapine FUMARATE 300 MG TABLET PO SCH (22:03)
[2023-01-04] MEDS: lamoTRIgine 100 MG TAB PO SCH (22:04)
[2023-01-04] MEDS: RANOLAZINE 500 MG ER TAB PO SCH (22:10)
[2023-01-04] MEDS: OMEGA-3 (PURIFIED FISH OIL) 1 GM CAP PO SCH (22:10)
[2023-01-04] MEDS: busPIRone 5 MG TAB PO SCH (22:11)
[2023-01-04] MEDS: BACLOFEN 10 MG TAB PO SCH (22:11)
[2023-01-04] MEDS: buPROPion SR 150 MG TABCR PO SCH (22:11)
[2023-01-04] MEDS: VERAPAMIL HCL 180 MG TABCR PO SCH (22:12)
[2023-01-04] MEDS: MAGNESIUM OXIDE 400 MG TAB PO SCH (22:12)
[2023-01-04] MEDS: ASPIRIN 81 MG ECTAB PO SCH (22:13)
[2023-01-04] MEDS: ATORVASTATIN 40 MG TAB PO SCH (22:14)
[2023-01-04] MEDS: DOCUSATE SODIUM 100 MG CAP PO SCH (22:15)
--- NOTE | 2023-01-05 00:08 | Operative Report (OR) ---
ADDENDUM The right foot fourth toe had a large curved toenail, which was close to irritating the skin on the d istal and plantar aspect of the toe. It was otherwise unremarkable. I trimmed the 4th toenail back to a straight level with a pair of sharp straight toe nail cutters. She had a trace bit of bleeding underneath the nail area. There is no wound or erythema. Job ID: [id number]
[2023-01-05] MEDS: KETOROLAC TROMETHAMINE 15 MG/ML VIAL IV SCH ×2 (01:15→05:39)
[2023-01-05] MEDS: ceFAZolin 1000MG 1,000 MG/7.5 ML SYR IV SCH (01:16)
[2023-01-05] MEDS: ACETAMINOPHEN 500 MG TAB PO SCH ×3 (05:39→22:02)
[2023-01-05] MEDS: oxyCODONE HCL IR 5 MG TAB (IMMEDIATE RELEASE) PO PRN ×4 (06:18→21:57)
[2023-01-05 06:52] LABS: Hematocrit (blood only) 26.6 % (37.0-47.0); Hemoglobin 8.7 g/dl (12.0-16.0); Mean Corpuscular Hemoglobin 28.4 pg (25.0-34.0); Mean Corpuscular Hgb Conc 32.7 g/dL (32.0-36.0); Mean Corpuscular Volume 86.9 fL (80.0-100.0); Mean Platelet Volume 9.2 fL (9.4-12.4); Platelet Count 184 K/uL (130-400); RDW Standard Deviation 48.3 fL (36.4-46.3); Red Blood Count 3.06 M/uL (4.20-5.40); White Blood Count 10.87 K/ul (4.8-10.8)
[2023-01-05 07:32] LABS: Calcium 8.9 mg/dl (8.6-10.3)
[2023-01-05 07:37] LABS: BUN Creatinine Ratio 18.4 (10-20); Creatinine Clr Calc Pharmacy 57.2 ml/min; Est GFR (African American) 71.7 ml/min; Est GFR (Non-African American) 61.8 ml/min
--- NOTE | 2023-01-05 07:41 | Hospitalist Consultation ---
Date of Consultation January 05, 2023 Assessment & Plan (1) S/P total knee arthroplasty: POD# 1 s/p Cemented right total knee arthroplasty with preservation of the eyak patella with Dr Snyder. EBL 20cc WBC elevated, likely stress w/ steroids/surgery, afebrile Hgb dropped from 12.3--> 8.7 post-op -- acute blood loss from surgery (EBL 20cc and had gotten 701cc NSS, 200cc TXA, 1600cc IV perioperative reported) Will need to monitor on repeat Pain control/bowel regimen/PT/OT per primary service * Added miralax BID as hasn't had BM in a couple days, now w/ urinary retention. No burning sensation -- monitor w/ moving her bowels Of note, recent EGD w/ class B esophagitis and to be on protonix BID * Increased to BID for today, Pepcid IVP ordered as well. * Discontinued further toradol. Of note, was up to 4L post-op (2L prn at baseline, COPD/emphysema) Nebs available prn, incentive spirometer supplemental O2 titration as needed -- currently down to 2L NC CXR negative for congestion/acute pneumonia/consolidation Check Mag/iron panel for completeness Monitor labs/blood counts in AM (2) Esophageal dysphagia: w/ recent EGD as above PPI increased to BID, added pepcid IV daily in meantime instructed to avoid further citrus/wait to eat until after getting her PPI in AM Avoiding further NSAIDs -- got celebrex pre-op, scheduled toradol following surgery (got 3/4 ordered doses -- nothing further) No issues w/ diet reported at present (3) CAD, multiple vessel: HxCAD s/p Inferior ND s/p CABG x 4 Vessels 08/20/2010, s/p Mid Left Circumflex Stent 2009, Carotid Artery Stenoses, Cerebrovascular Disease, Hypertension, Dyslipidemia cleared by cards pre-op, had been having some symptoms concerning for ischemia but had wanted to undergo surgery as cath delay surgery ~6 months and they added ranexa --> she is CP free currently (small couple second episode following orange this AM, reported chronic for her) Had Lexiscan 12/08/22 with fixed defect and mild amount of demetrius-infarct ischemia Remains on ASA, lipitor, ranexa, verapamil EKG w/ CP (4) GERD (gastroesophageal reflux disease): continue PPI bid (5) On home oxygen therapy: 2L prn at home prior smoking history supplemental O2 to maintain sats, incentive spirometer monitor needs (6) COPD (chronic obstructive pulmonary disease): continue roflumilast, Symbicort (or hospital equivalent)/albuterol nebs o2 as needed, titrate as able Plan Thank you for allowing hospitalist service to participate in the care of Ms Monryo. Hospitalist service will follow along. Please call with any questions/concerns. Supervising Physician Co-Signing Physician Notes PA Supervision Note: I personally saw and examined the patient. I verified all mcclure points and agree with YVES Peña with the following exceptions and/or additions: S-Pt feeling well, pain controlled. Had a few seconds of CP this AM that is now gone and was related to eating an orange. History and ROS reviewed O- Vitals reviewed Gen: [AAOx3, NAD] HEENT: [anicteric sclerae, EOMI] CV: [RRR no mgr nl S1S2] Pulm: [CTAB no wcr] Abd: [+BS soft NT ND no masses or hernias] Ext: [knee in dressing Skin: [no rashes, warm/dry] Neuro: [full strength throughout,ambulating with walker] A/P-62 yo female here with history as above, for TKA doing well post op, continue to monitor continue supplemental O2 as needed, watch CBC, BMP, BPs History of Present Illness Reason for Consultation: med management Requesting Physician: Dr Snyder Attending Physician: Narendra Snyder MD History of Present Illness 62yo female with PMHx significant for CAD s/p Inferior ND s/p CABG x 4 Vessels 08/20/2010, s/p Mid Left Circumflex Stent 2009, Carotid Artery Stenoses, Cerebrovascular Disease, Hypertension, Dyslipidemia, COPD/emphysema, presented for RIGHT total knee arthroplasty with Dr Snyder on 01/04. Per nursing notes, patient SpO2 87-91% on 4L post-op, encouraged to use incentive spirometer and was 86-93% on 4L and reported using albuterol nebs at home when this occurred and she was provided albuterol neb with reported feeling better with mild SOB reported. Was desat to 88% on 3L when sleeping but awake/talking to 92-94% on 3L. Evaluated in room 317, sitting up in chair, just walked in the halls, pain about 5/10 currently. Discussed reflux, she did just have recent EGD w/ esophagitis and confirms to be on protonix twice daily. She notes she didn't get this last night or yet this morning and typically doesn't eat citrus but had some oragne this morning and having a little burning sensation. No chest pain, and she notes she has hx ND x 2 and bypass and this discomfort lasted a couple of seconds and was nothing like that pain. Oxygen down to 2L at present and she does have this on occasion 2L as needed at home. Breathing stable and now continues to use incentive spirometer. Had urinary retention this morning requiring straight cath. Denies passing gas but no abdominal pain. States feeling some rumbling. Success w/ miralax at home and will order. Planning to monitor overnight and possible discharge tomorrow. Per ortho, planning to use eliquis 2.5mg BID-- no hx DVT/PE known per patient. Discussed also holding and avoiding further NSAIDs, toradol placed on hold. Questions/concerns addressed at this time. Allergies Allergy/AdvReac Type Severity Reaction Status Date / Time nitrofurantoin Allergy Intermediate HIVES Verified 01/04/23 06:25 senna Allergy Intermediate HIVES Verified 01/04/23 06:25 (FROM X-Prep), TAKES SENOKOT AT HOME Iodinated Contrast Media Allergy Mild RASH Verified 01/04/23 06:25 rizatriptan AdvReac Intermediate NAUSEA AND Verified 01/04/23 06:25 VOMITING sumatriptan AdvReac Intermediate WORSENED Verified 01/04/23 06:25 HEADACHE zolpidem AdvReac Intermediate NIGHTMARES Verified 01/04/23 06:25 Beta-Blockers AdvReac Mild HYPOTENSION Verified 01/04/23 06:25 (Beta-Adrenergic Bloc Home Medications Medication Instructions Recorded Confirmed Type aspirin 81 mg tablet,delayed 81 mg PO HS 07/27/18 01/04/23 History release (Rula Low Dose Aspirin) coenzyme Q10 100 mg capsule (Co 200 mg PO HS 07/27/18 01/04/23 History Q-10) cyanocobalamin (vitamin B-12) 1,000 mcg PO QAM 07/27/18 01/04/23 History 1,000 mcg tablet (Vitamin B-12) melatonin 10 mg tablet 10 mg PO HS 07/27/18 01/04/23 History multivitamin (One Daily 1 tab PO QAM 07/27/18 01/04/23 History Multivitamin tablet) omega 8-wjw-ktf-fish oil 1,000 mg 1 cap PO BID 07/27/18 01/04/23 History (120 mg-180 mg) capsule (Fish Oil) duloxetine 30 mg capsule,delayed 30 mg PO QAM 06/04/19 01/04/23 History release (Cymbalta) albuterol sulfate 2.5 mg/3 mL 2.5 mg inhalation Q4H PRN 06/16/19 01/04/23 History (0.083 %) solution for nebulization Shortness Of Breath Or Wheezing gabapentin 600 mg tablet 600 mg PO TID 06/16/19 01/04/23 History onabotulinumtoxinA 100 unit 100 unit subcut Q3M 06/16/19 01/04/23 History solution for injection (Botox) atorvastatin 80 mg tablet 80 mg PO QPM 10/04/19 01/04/23 History budesonide-formoterol HFA 160 2 puff inhalation BID 12/04/19 01/04/23 History mcg-4.5 mcg/actuation aerosol inhaler (Symbicort) lamotrigine 200 mg tablet 200 mg PO HS 12/04/19 01/04/23 History bupropion HCl 150 mg tablet,12 hr 150 mg PO BID 04/17/20 01/04/23 History sustained-release (Wellbutrin SR) cholecalciferol (vitamin D3) 25 2,000 unit PO QAM 04/17/20 01/04/23 History mcg (1,000 unit) capsule (Vitamin D3) albuterol sulfate 90 mcg/actuation 2 puff inhalation Q6H PRN 04/24/20 01/04/23 Rx aerosol inhaler (Ventolin HFA) Shortness Of Breath #8.5 grams magnesium oxide 400 mg PO HS 10/30/20 01/04/23 History ascorbic acid (vitamin C) 500 mg 500 mg PO QAM 11/20/20 01/04/23 History tablet (Vitamin C) lidocaine 5 % topical patch 1 patch topical DAILY PRN pain #15 02/12/21 01/04/23 Rx ea tramadol 50 mg tablet 100 mg PO Q8H PRN pain 10/01/21 01/04/23 History iyfxhtqzmg-krtridvycnmcs-liibiuee 1 tab PO BID PRN headache 30 days 11/02/21 01/04/23 Rx 50 mg-325 mg-40 mg tablet (Esgic) #10 tabs quetiapine 300 mg tablet 150 mg PO HS 01/31/22 01/04/23 History quetiapine 50 mg tablet 50 mg PO BID PRN ANXIETY ATTACKS 01/31/22 01/04/23 History sucralfate 1 gram tablet See Rx Instructions .Route 03/01/22 01/04/23 Rx .COMPLEX #120 tabs roflumilast 500 mcg tablet 500 mcg PO QAM #90 tabs 06/11/22 01/04/23 Rx (Daliresp) azithromycin 250 mg tablet 250 mg PO MOWEFR 30 days #18 tabs 07/23/22 01/04/23 Rx lasmiditan 100 mg tablet (Reyvow) 100 mg PO DAILY PRN migraine 08/05/22 01/04/23 Rx headache #8 tabs nitroglycerin 0.4 mg sublingual 0.4 mg sublingual UD PRN chest 09/06/22 12/30/22 Rx tablet (Nitrostat) pain 30 days #25 tabs Cbd Gummies 1 dose PO DAILY PRN Pain 11/04/22 01/04/23 History baclofen 10 mg tablet 10 mg PO HS 11/04/22 01/04/23 History buspirone 10 mg tablet 10 mg PO BID 11/04/22 01/04/23 History lamotrigine 150 mg tablet 150 mg PO QAM 11/04/22 01/04/23 History ranolazine 500 mg tablet,extended 500 mg PO BID #60 tabs 11/04/22 01/04/23 Rx release,12 hr riboflavin (vitamin B2) 400 mg 400 mg PO QAM 11/04/22 01/04/23 History tablet verapamil 360 mg 24 hr 360 mg PO HS #90 caps 11/11/22 01/04/23 Rx capsule,extended release pantoprazole 40 mg tablet,delayed 40 mg PO BID #60 tabs 12/22/22 12/30/22 Rx release Patient History Medical History Anemia Benign essential hypertension Bilateral carotid artery disease Bilateral lumbar radiculopathy Cauda equina syndrome Colon polyp Coronary artery disease Depression Dyslipidemia Emphysema of lung GERD (gastroesophageal reflux disease) Heart attack History of COVID-19 History of home oxygen therapy IBS (irritable bowel syndrome) Kidney stones Low back problem Lymphedema Migraine with aura and without status migrainosus, not intractable PTSD (post-traumatic stress disorder) Radicular pain of lumbosacral region Restless legs syndrome Sciatica Seasonal allergies Transient ischemic attack (TIA) Surgical History H/O heart bypass surgery H/O unilateral salpingectomy History of back surgery History of cardiac cath History of section History of cholecystectomy History of colonoscopy History of ectopic History of hysterectomy History of lithotripsy History of right knee surgery History of shoulder surgery History of total knee replacement S/P epidural steroid injection Family History Daughter Atrial septal defect Son Atrial septal defect Sister Crohn's disease Family history of ND (myocardial infarction) Cancer Mother Cervical cancer Father Diabetes Coronary heart disease Cancer Brother Nephroblastoma Cancer Grandmother (Maternal) Diabetes Grandmother (Paternal) Diabetes Other No family history of adverse response to anesthesia No significant family history Social History Smoking Status: Former smoker Tobacco Type: Cigarettes and E-cigarettes / Vaping Smoking End Date: Quit 17-18 MONTHS AGO; Second Hand Exposure: No; Do You Dip or Chew Tobacco: No; Tobacco Cessation Education Requested by Patient: No Hx Alcohol Use: No Hx Substance Use: No Preferred Language: Divehi Communication Ability: Effective Visual Impairment: Limited Hearing Ability: Normal Gynaecological Oncologist Required: No Beliefs That Will Affect Care: None marital status: Current Living Situation: Alone current occupational status: disabled Other Information That Helps Us Care for You: No Feels Safe at Home: Yes Safety Concerns: Feels Safe At This Time Childhood Exposure to Second-Hand Smoke: Yes Assistive Devices: Oxygen - at Night and Walker Assistive Devices Comment: O2 PRN Review of Systems Review of Systems: All systems reviewed & are unremarkable except as noted in HPI & below Physical Exam Physical Exam: General: WD/WN female sitting up in chair, NAD HEENT: head normocephalic, atraumatic, no JVD, mmm Resp: diminished in the bases, no w/r, on 2L NC CV: regular rate/rhtyhm, no obvious m/r/g, no pitting edema GI: +BS, soft/NT : no manriquez MSK/Neuro: dressing to RIGHT knee c/d/i, ice pack in place, toes mobile, calves nontender, sensation intact no focal deficit, no slurred speech Psych: AOx3, pleasant and cooperative Results & Data Results & Data Vital Signs (Past 12 Hours) Vital Signs Temp Pulse Resp BP Pulse Ox O2 Del Method O2 Flow Rate 01/05/23 07:31 36.8 C 79 16 101/54 L 95 Nasal Cannula 4 01/05/23 02:00 36.5 C 85 18 107/67 92 Nasal Cannula 4 01/04/23 22:01 36.7 C 87 18 139/80 93 Nasal Cannula 4 Laboratory Results 01/05/23 01/05/23 01/05/23 Range/Units 08:03 06:32 06:32 WBC (4.8-10.8) K/ul RBC (4.20-5.40) M/uL Hgb (12.0-16.0) g/dl Hct (37.0-47.0) % MCV (80.0-100.0) fL MCH (25.0-34.0) pg MCHC (32.0-36.0) g/dL RDW Std Deviation (36.4-46.3) fL RDW Coeff of Elicia (11.5-14.5) % Plt Count (130-400) K/uL MPV (9.4-12.4) fL Sodium 139 (136-145) mmol/L Potassium 4.0 (3.5-5.1) mmol/L Chloride 105 (98-107) mmol/L Carbon Dioxide 28 (21-32) mmol/L Anion Gap 6 (3-11) BUN 18 (6-23) mg/dl Creatinine 0.98 (0.6-1.2) mg/dl Est Cr Clr Drug Dosing 57.2 ml/min Est GFR ( Amer) 71.7 ml/min Est GFR (Non-Af Amer) 61.8 ml/min BUN/Creatinine Ratio 18.4 (10-20) Glucose 120 H (70-99(Fasting)) mg/dl POC Glucose 127 H (70-99) mg/dl Calcium 8.9 (8.6-10.3) mg/dl Magnesium Pending Iron Pending TIBC Pending Unsaturated IBC Pending Transferrin % Sat Pending Ferritin Pending 01/05/23 01/04/23 01/04/23 Range/Units 06:32 20:26 17:21 WBC 10.87 H (4.8-10.8) K/ul RBC 3.06 L (4.20-5.40) M/uL Hgb 8.7 L (12.0-16.0) g/dl Hct 26.6 L (37.0-47.0) % MCV 86.9 (80.0-100.0) fL MCH 28.4 (25.0-34.0) pg MCHC 32.7 (32.0-36.0) g/dL RDW Std Deviation 48.3 H (36.4-46.3) fL RDW Coeff of Elicia 15.0 H (11.5-14.5) % Plt Count 184 (130-400) K/uL MPV 9.2 L (9.4-12.4) fL Sodium (136-145) mmol/L Potassium (3.5-5.1) mmol/L Chloride (98-107) mmol/L Carbon Dioxide (21-32) mmol/L Anion Gap (3-11) BUN (6-23) mg/dl Creatinine (0.6-1.2) mg/dl Est Cr Clr Drug Dosing ml/min Est GFR ( Amer) ml/min Est GFR (Non-Af Amer) ml/min BUN/Creatinine Ratio (10-20) Glucose (70-99(Fasting)) mg/dl POC Glucose 165 H 247 H (70-99) mg/dl Calcium (8.6-10.3) mg/dl Magnesium Iron TIBC Unsaturated IBC Transferrin % Sat Ferritin Diagnostic Findings Knee X-Ray 01/04/23 12:03 XR knee RT 1 or 2V routine CLINICAL HISTORY: Postoperative evaluation. COMPARISON: Leg length study December 20, 2022. Right knee radiographs October 11, 2022. FINDINGS: Alignment of the total right knee arthroplasty is anatomic. There is no periprosthetic fracture or unexpected radiopaque foreign body. There are skin angie. IMPRESSION: Expected findings following total right knee arthroplasty. ACT 112: Negative or not required by law. Electronically signed by: Jose Wakefield M.D. 01/04/2023 1:02 PM Chest X-Ray 01/05/23 07:41 SINGLE VIEW CHEST CLINICAL HISTORY: Hypoxia FINDINGS: An AP, portable, upright chest radiograph is compared to study dated 12/20/2022 and correlated with chest CT dated 04/05/2022. The patient is status post midline sternotomy. The cardiomediastinal silhouette is top normal for projection noting atherosclerotic calcification of the thoracic aorta. Emphysema and chronic interstitial thickening is similar to previous. There is mild bibasilar scarring/atelectasis. No airspace consolidation or large pleural effusion is identified. No pneumothorax is seen. The skeletal structures are osteopenic. The bony thorax is grossly intact. Fusion hardware is partially visualized in the lumbar spine. IMPRESSION: Emphysematous change with no active disease in the chest. ACT 112: Negative or not required by law. Electronically signed by: Fermin Betancourt M.D. 01/05/2023 9:00 AM PG Care Time/CCT Total # of Minutes Spent Total Time Spent with Patient: Total time spent is greater than 50% in coordination of care (as documented) at patient's floor/unit and/or counseling patient: Coding Level of Care Code 14220 IN/OBS CONSULT LVL 3,45M Diagnoses S/P total knee arthroplasty Z96.659 Esophageal dysphagia R13.19 CAD, multiple vessel I25.10 GERD (gastroesophageal reflux disease) K21.9 On home oxygen therapy Z99.81 COPD (chronic obstructive pulmonary disease) J44.9
[2023-01-05] MEDS: traMADol HCL 50 MG TABLET PO PRN (07:44)
[2023-01-05] MEDS ORDERED: dexAMETHasone 4 MG TAB PO SCH (08:00)
[2023-01-05] MEDS ORDERED: UMECLIDINIUM/VILANTEROL 62.5/25MCG 7 PUFFS/INHALER INH SCH (09:00)
[2023-01-05] MEDS ORDERED: PANTOprazole 40 MG TAB PO SCH (09:00)
[2023-01-05] MEDS ORDERED: NON-FORMULARY MEDICATION (Riboflavin (Vitamin B2) 400 mg tablet) PO SCH (09:00)
--- NOTE | 2023-01-05 09:02 | XRay Report ---
SINGLE VIEW CHEST CLINICAL HISTORY: Hypoxia FINDINGS: An AP, portable, upright chest radiograph is compared to study dated 12/20/2022 and correlat ed with chest CT dated 04/05/2022. The patient is status post midline sternotomy. The cardiomediastina l silhouette is top normal for projection noting atherosclerotic calcification of the thoracic aorta. Emphysema and chronic interstitial thickening is similar to previous. There is mild bibasilar scarri ng/atelectasis. No airspace consolidation or large pleural effusion is identified. No pneumothorax is seen. The skeletal structures are osteopenic. The bony thorax is grossly intact. Fusion hardware is partially visualized in the lumbar spine. IMPRESSION: Emphysematous change with no active disease in the chest. ACT 112: Negative or not required by law. Electronically signed by: Fermin Betancourt M.D. 01/05/2023 9:00 AM
--- NOTE | 2023-01-05 09:45 | Progress Notes ---
DATE OF SERVICE: 01/05/2023. She is resting comfortably in bed. She remains on O2. She does use O2 as needed at home and reports room air sats at home as low as 88. Today, she has no chest pains or shortness of breath. She did have a fair amount of pain overnight and required medication. She was able to do some PT last evenin g and her PT evaluation today is pending. She is afebrile. Her vital signs are stable. Her O2 sats on as low as 3 liters were 94%. She did r equire a straight catheterization. Her urine output is otherwise good. Her white count today is 11, hemoglobin 9, hematocrit 27, platelets are 184. Her PRP is noted. Radi ographs of the knee from yesterday reviewed with her yesterday. Good positioning of the implants. N o evidence of complication total knee arthroplasty, tibia and femur, patella unsurfaced, report noted . On exam today, her dressing is clean and dry. She is able to do a straight leg raise. She has teetee l sensation in the foot, 1+ PT and a 1+ DP pulse. Sensation is intact throughout the foot and she dumont s 5-/5 strength to ankle and toe plantar flexion, dorsiflexion, inversion and eversion. IMPRESSION: 1. Postoperative day #1, status post right total knee arthroplasty. 2. Multiple medical problems including chronic obstructive pulmonary disease and cardiac disease. PLAN: Hospitalist consultation pending. She will start on Lovenox 30 mg subcutaneous b.i.d. today. Given her urinary retention and her oxygen saturation as well as her overall health, I think that irineo chandler spending another day here with us is prudent. Her daughters will be at home with her. We will see how she does with PT and how her pain control is today as well as her urine output. Upon discharg e, we will try apixaban 2.5 mg p.o. b.i.d. Job ID: [id number]
[2023-01-05] MEDS: GABAPENTIN 600 MG TAB PO SCH ×3 (10:16→22:00)
[2023-01-05] MEDS: DULoxetine HCL 30 MG CAP PO SCH (10:16)
[2023-01-05] MEDS: lamoTRIgine 100 MG TAB PO SCH ×2 (10:16→22:00)
[2023-01-05] MEDS: ASCORBIC ACID 500 MG TAB PO SCH (10:17)
[2023-01-05] MEDS: MULTIVITAMIN TAB PO SCH (10:17)
[2023-01-05] MEDS: CYANOCOBALAMIN (B-12) 500 MCG TABLET PO SCH (10:17)
[2023-01-05] MEDS: busPIRone 5 MG TAB PO SCH ×2 (10:17→21:59)
[2023-01-05] MEDS: PANTOprazole 40 MG TAB PO SCH ×2 (10:17→22:01)
[2023-01-05] MEDS: OMEGA-3 (PURIFIED FISH OIL) 1 GM CAP PO SCH ×2 (10:18→22:00)
[2023-01-05] MEDS: DOCUSATE SODIUM 100 MG CAP PO SCH ×2 (10:18→21:59)
[2023-01-05] MEDS: RANOLAZINE 500 MG ER TAB PO SCH ×2 (10:18→22:01)
[2023-01-05] MEDS: CHOLECALCIFEROL 1,000 UNITS 25 MCG TAB PO SCH (10:18)
[2023-01-05] MEDS: ROFLUMILAST 500 MCG TAB PO SCH (10:18)
[2023-01-05] MEDS: ENOXAPARIN INJ 30 MG/0.3 ML SYR SQ SCH ×2 (10:19→21:57)
[2023-01-05] MEDS: FLUTICASONE/VILANTEROL 200/25MCG 14 PUFFS/INHALER INH SCH (10:19)
[2023-01-05] MEDS: buPROPion SR 150 MG TABCR PO SCH ×2 (10:19→21:59)
[2023-01-05] MEDS: POLYETHYLENE (MIRALAX) 17 GM PACK PO SCH ×2 (10:33→21:57)
[2023-01-05 11:09] LABS: Ferritin 20.2 ng/ml (8-388)
[2023-01-05] MEDS: NICOTINE 14 MG/24 HR PATCH TD SCH (11:37)
[2023-01-05] MEDS: FAMOTIDINE 20 MG in SYRINGE 3 ML IV SCH (11:38)
[2023-01-05] MEDS: DOCUSATE SODIUM/SENNA 50/8.6MG TAB PO SCH (14:57)
[2023-01-05] MEDS: BACLOFEN 10 MG TAB PO SCH (21:58)
[2023-01-05] MEDS: ATORVASTATIN 40 MG TAB PO SCH (21:58)
[2023-01-05] MEDS: ASPIRIN 81 MG ECTAB PO SCH (21:58)
[2023-01-05] MEDS: MAGNESIUM OXIDE 400 MG TAB PO SCH (22:00)
[2023-01-05] MEDS: MELATONIN 3 MG TAB PO SCH (22:00)
[2023-01-05] MEDS: QUEtiapine FUMARATE 300 MG TABLET PO SCH (22:01)
[2023-01-05] MEDS: VERAPAMIL HCL 180 MG TABCR PO SCH (22:01)
[2023-01-06] MEDS: ACETAMINOPHEN 500 MG TAB PO SCH ×3 (05:06→20:43)
[2023-01-06 06:49] LABS: Hematocrit (blood only) 23.1 % (37.0-47.0); Hemoglobin 7.3 g/dl (12.0-16.0); Immature Granulocytes # (auto) 0.02 K/uL (0.01-0.20); Immature Granulocytes % (auto) 0.3 %; Lymphocytes # (auto) 0.89 K/uL (1.2-3.4); Lymphocytes % (auto) 13.9 %; Mean Corpuscular Hemoglobin 28.4 pg (25.0-34.0); Mean Corpuscular Hgb Conc 31.6 g/dL (32.0-36.0); Mean Corpuscular Volume 89.9 fL (80.0-100.0); Mean Platelet Volume 9.5 fL (9.4-12.4); Monocytes # (auto) 0.64 K/uL (0.11-0.59); Neutrophils # (auto) 4.83 K/uL (1.40-6.50); Neutrophils % (auto) 75.8 %; Platelet Count 166 K/uL (130-400); RDW Coefficient of Variation 15.5 % (11.5-14.5); RDW Standard Deviation 50.6 fL (36.4-46.3); Red Blood Count 2.57 M/uL (4.20-5.40); White Blood Count 6.38 K/ul (4.8-10.8)
[2023-01-06 07:03] LABS: BUN Creatinine Ratio 18.8 (10-20); Calcium 8.7 mg/dl (8.6-10.3); Creatinine Clr Calc Pharmacy 47.9 ml/min; Est GFR (African American) 57.8 ml/min; Est GFR (Non-African American) 49.9 ml/min; Potassium 4.4 mmol/L (3.5-5.1)
[2023-01-06 07:20] LABS: Ovalocytes 1+; Tear Drop Cells 1+
[2023-01-06] MEDS: oxyCODONE HCL IR 5 MG TAB (IMMEDIATE RELEASE) PO PRN ×2 (07:31→17:55)
[2023-01-06] MEDS: POLYETHYLENE (MIRALAX) 17 GM PACK PO SCH ×2 (08:40→20:43)
[2023-01-06] MEDS: ENOXAPARIN INJ 30 MG/0.3 ML SYR SQ SCH (08:40)
[2023-01-06] MEDS: CHOLECALCIFEROL 1,000 UNITS 25 MCG TAB PO SCH (08:41)
[2023-01-06] MEDS: CYANOCOBALAMIN (B-12) 500 MCG TABLET PO SCH (08:41)
[2023-01-06] MEDS: DULoxetine HCL 30 MG CAP PO SCH (08:41)
[2023-01-06] MEDS: ASCORBIC ACID 500 MG TAB PO SCH (08:41)
[2023-01-06] MEDS: MULTIVITAMIN TAB PO SCH (08:41)
[2023-01-06] MEDS: RANOLAZINE 500 MG ER TAB PO SCH ×2 (08:41→20:42)
[2023-01-06] MEDS: NICOTINE 14 MG/24 HR PATCH TD SCH (08:41)
[2023-01-06] MEDS: ROFLUMILAST 500 MCG TAB PO SCH (08:41)
[2023-01-06] MEDS: lamoTRIgine 100 MG TAB PO SCH ×2 (08:41→20:42)
[2023-01-06] MEDS: busPIRone 5 MG TAB PO SCH ×2 (08:42→20:40)
[2023-01-06] MEDS: OMEGA-3 (PURIFIED FISH OIL) 1 GM CAP PO SCH ×2 (08:42→20:42)
[2023-01-06] MEDS: DOCUSATE SODIUM 100 MG CAP PO SCH ×2 (08:42→20:40)
[2023-01-06] MEDS: PANTOprazole 40 MG TAB PO SCH ×2 (08:42→20:42)
[2023-01-06] MEDS: FLUTICASONE/VILANTEROL 200/25MCG 14 PUFFS/INHALER INH SCH (08:42)
[2023-01-06] MEDS: GABAPENTIN 600 MG TAB PO SCH ×3 (08:42→20:42)
[2023-01-06] MEDS: buPROPion SR 150 MG TABCR PO SCH ×2 (08:42→20:42)
[2023-01-06] MEDS: DOCUSATE SODIUM/SENNA 50/8.6MG TAB PO SCH (08:47)
[2023-01-06] MEDS: FAMOTIDINE 20 MG in SYRINGE 3 ML IV SCH (08:47)
--- NOTE | 2023-01-06 09:02 | Hospitalist Progress Note ---
Date of Service January 06, 2023 Assessment & Plan (1) S/P total knee arthroplasty: Plan: POD#2 s/p Cemented right total knee arthroplasty with preservation of the [place] patella with Dr Snyder. EBL 20cc WBC elevated, likely stress w/ steroids/surgery, afebrile Hgb dropped from 12.3--> 8.7 post-op -- acute blood loss from surgery (EBL 20cc and had gotten 701cc NSS, 200cc TXA, 1600cc IV perioperative reported) Will need to monitor on repeat Further drop to 7.3 today along w/ hypotension/dizziness and decision to transfuse 1u PRBC discussed w/ ortho. No significant hematoma on exam, does have some ecchymosis . Iron studies w/ iron 40, trans % sat low 13, ferritin 20.2. Could consider IV venofer infusion as well but holding off given low BPs and giving blood. Monitor Ortho placed to hold further Lovenox at present and obtained EKG w/ CP this AM, unchanged from prior. Patient denies further CP at time of exam Bowel regimen -- passing gas, no BM in couple prior days Less urine retention -- asked RN to check UA/cx given prior retention/uti issues but suspect retention from constipation. +BS on exam. If worsened pain, obtain KUB Remains on PPI BID for recent EGD w/ class B esophagitis. Pepcid IV daily. NO further NSAIDs Titrated back to 2L NC, uses prn at home -- PRBC as above and titrate as able PT/OT consults Remaining inpatient overnight (2) Esophageal dysphagia: Plan: w/ recent EGD as above -- PPI increased to BID as should have been taking. Pepcid daily. No issues w/ swallowing NO FURTHER NSAIDs -- had gotten 3 of 4 doses toradol post op (3) CAD, multiple vessel: Plan: HxCAD s/p Inferior [place] s/p CABG x 4 Vessels 08/20/2010, s/p Mid Left Circumflex Stent 2009, Carotid Artery Stenoses, Cerebrovascular Disease, Hypertension, Dyslipidemia cleared by cards pre-op, had been having some symptoms concerning for ischemia but had wanted to undergo surgery as cath delay surgery ~6 months and they added ranexa --> she is CP free currently (small couple second episode following orange this AM, reported chronic for her) Had Lexiscan 12/08/22 with fixed defect and mild amount of demetrius-infarct ischemia Remains on ASA, lipitor, ranexa, verapamil EKG w/ CP -- EKG appears unchanged from prior, and no reccurance WILL NEED OUTPT f/u at d/c. Would check trop w/ EKG if complaints of CP again but appears possibly diet related? (4) GERD (gastroesophageal reflux disease): Plan: continue PPI bid, pepcid daily (5) On home oxygen therapy: Plan: 2L prn at home prior smoking history supplemental O2 to maintain sats, incentive spirometer monitor needs CXR w/o acute finding (6) COPD (chronic obstructive pulmonary disease): Plan: continue roflumilast, Symbicort (or hospital equivalent)/albuterol nebs o2 as needed, titrate as able Plan Thank you for allowing hospitalist service to participate in the care of Ms Monroy. Hospitalist service will follow along. Please call with any questions/concerns. Admission and Anticipated Discharge Date Admission Date: January 04, 2023 Supervising Physician Co-Signing Physician Notes PA Supervision Note: I did not personally see or examine the patient today, but I verified all mcclure points of YVES Peña's assessment and plan with the following exceptions/additions: None Subjective eval this morning, hgb dropped to 7.3. had been up/ambulating in the room but feeling a little dizzy/lightheaded and endorsing some shortness of breath. Did have episode of "chest pain" for a second this morning after eating banana. Believes feels like her reflux pain. Will see if got her dose pepcid. On PPI BID. No BM but passing some gas. BPs on the lower side, and discussed w/ orthopedics about blood -- 1u PRBC ordered and currently hanging. Patient reports increased pain since nerve block off on her knee, toes mobile, sensation intact. Less urinary retention. Asked RN to check UA given prior UTIs, but no burning/frequency. Just having issues w/ retention, which she reported some of last night but not like in the morning. Planning inpatient overnight, possible dc tomorrow pending repeat evals/labs. Physical Exam Physical Exam: General: WD/WN female, +pallor, laying in bed, NAD but reporting fatigue HEENT: head normocephalic, atraumatic, mmm, trachea midline Resp: diminished in the bases, no w/c/, on 2L NC CV: RRR, faint systolic murmur, no significant pitting edema/calf tenderness, pulses palpable GI: +BS, soft, slightly distended, suprapubic tenderness : no manriquez MSK/Neuro: dressing to RIGHT knee c/d/i, ice pack in place, toes mobile, calves supple, slight discomfort right calf no focal deficit, no slurred speech Psych: AOx3, cooperative Results & Data Results & Data Vital Signs (Past 12 Hours) Vital Signs Temp Pulse Pulse Resp BP BP Pulse Ox 01/06/23 07:36 01/06/23 07:25 36.8 C 68 18 95/63 L 93 01/05/23 21:50 01/05/23 23:15 37.1 C 78 20 103/65 94 01/05/23 21:50 36.9 C 77 127/69 91 O2 Del Method O2 Flow Rate 01/06/23 07:36 Room Air, Nasal Cannula 2 01/06/23 07:25 Nasal Cannula 2 01/05/23 21:50 Nasal Cannula 2 01/05/23 23:15 Nasal Cannula 2 01/05/23 21:50 Nasal Cannula 2 Laboratory Results 01/06/23 01/06/23 01/06/23 Range/Units 08:08 06:12 06:12 WBC 6.38 (4.8-10.8) K/ul RBC 2.57 L (4.20-5.40) M/uL Hgb 7.3 L (12.0-16.0) g/dl Hct 23.1 L (37.0-47.0) % MCV 89.9 (80.0-100.0) fL MCH 28.4 (25.0-34.0) pg MCHC 31.6 L (32.0-36.0) g/dL RDW Std Deviation 50.6 H (36.4-46.3) fL RDW Coeff of Elicia 15.5 H (11.5-14.5) % Plt Count 166 (130-400) K/uL MPV 9.5 (9.4-12.4) fL Immature Gran % (Auto) 0.3 % Neut % (Auto) 75.8 % Lymph % (Auto) 13.9 % [place] % (Auto) 10.0 % Eos % (Auto) 0.0 % Baso % (Auto) 0.0 % Neut # (Auto) 4.83 (1.40-6.50) K/uL Lymph # (Auto) 0.89 L (1.2-3.4) K/uL [place] # (Auto) 0.64 H (0.11-0.59) K/uL Eos # (Auto) 0.00 (0-0.50) K/uL Baso # (Auto) 0.00 (0-0.2) K/uL Immature Gran # (Auto) 0.02 (0.01-0.20) K/uL Tear Drop Cells 1+ Ovalocytes 1+ Sodium 140 (136-145) mmol/L Potassium 4.4 (3.5-5.1) mmol/L Chloride 106 (98-107) mmol/L Carbon Dioxide 29 (21-32) mmol/L Anion Gap 5 (3-11) BUN 22 (6-23) mg/dl Creatinine 1.17 (0.6-1.2) mg/dl Est Cr Clr Drug Dosing 47.9 ml/min Est GFR ( Amer) 57.8 ml/min Est GFR (Non-Af Amer) 49.9 ml/min BUN/Creatinine Ratio 18.8 (10-20) Glucose 89 (70-99(Fasting)) mg/dl POC Glucose 105 H (70-99) mg/dl Calcium 8.7 (8.6-10.3) mg/dl Magnesium (1.7-2.4) mg/dl Iron (35-150) mcg/dl TIBC (250-450) mcg/dl Unsaturated IBC (155-355) mcg/dl Transferrin % Sat (15-50) % Ferritin (8-388) ng/ml 01/05/23 01/05/23 01/05/23 Range/Units 20:26 17:12 12:00 WBC (4.8-10.8) K/ul RBC (4.20-5.40) M/uL Hgb (12.0-16.0) g/dl Hct (37.0-47.0) % MCV (80.0-100.0) fL MCH (25.0-34.0) pg MCHC (32.0-36.0) g/dL RDW Std Deviation (36.4-46.3) fL RDW Coeff of Elicia (11.5-14.5) % Plt Count (130-400) K/uL MPV (9.4-12.4) fL Immature Gran % (Auto) % Neut % (Auto) % Lymph % (Auto) % [place] % (Auto) % Eos % (Auto) % Baso % (Auto) % Neut # (Auto) (1.40-6.50) K/uL Lymph # (Auto) (1.2-3.4) K/uL [place] # (Auto) (0.11-0.59) K/uL Eos # (Auto) (0-0.50) K/uL Baso # (Auto) (0-0.2) K/uL Immature Gran # (Auto) (0.01-0.20) K/uL Tear Drop Cells Ovalocytes Sodium (136-145) mmol/L Potassium (3.5-5.1) mmol/L Chloride (98-107) mmol/L Carbon Dioxide (21-32) mmol/L Anion Gap (3-11) BUN (6-23) mg/dl Creatinine (0.6-1.2) mg/dl Est Cr Clr Drug Dosing ml/min Est GFR ( Amer) ml/min Est GFR (Non-Af Amer) ml/min BUN/Creatinine Ratio (10-20) Glucose (70-99(Fasting)) mg/dl POC Glucose 122 H 148 H 169 H (70-99) mg/dl Calcium (8.6-10.3) mg/dl Magnesium (1.7-2.4) mg/dl Iron (35-150) mcg/dl TIBC (250-450) mcg/dl Unsaturated IBC (155-355) mcg/dl Transferrin % Sat (15-50) % Ferritin (8-388) ng/ml 01/05/23 Range/Units 06:32 WBC (4.8-10.8) K/ul RBC (4.20-5.40) M/uL Hgb (12.0-16.0) g/dl Hct (37.0-47.0) % MCV (80.0-100.0) fL MCH (25.0-34.0) pg MCHC (32.0-36.0) g/dL RDW Std Deviation (36.4-46.3) fL RDW Coeff of Elicia (11.5-14.5) % Plt Count (130-400) K/uL MPV (9.4-12.4) fL Immature Gran % (Auto) % Neut % (Auto) % Lymph % (Auto) % [place] % (Auto) % Eos % (Auto) % Baso % (Auto) % Neut # (Auto) (1.40-6.50) K/uL Lymph # (Auto) (1.2-3.4) K/uL [place] # (Auto) (0.11-0.59) K/uL Eos # (Auto) (0-0.50) K/uL Baso # (Auto) (0-0.2) K/uL Immature Gran # (Auto) (0.01-0.20) K/uL Tear Drop Cells Ovalocytes Sodium (136-145) mmol/L Potassium (3.5-5.1) mmol/L Chloride (98-107) mmol/L Carbon Dioxide (21-32) mmol/L Anion Gap (3-11) BUN (6-23) mg/dl Creatinine (0.6-1.2) mg/dl Est Cr Clr Drug Dosing ml/min Est GFR ( Amer) ml/min Est GFR (Non-Af Amer) ml/min BUN/Creatinine Ratio (10-20) Glucose (70-99(Fasting)) mg/dl POC Glucose (70-99) mg/dl Calcium (8.6-10.3) mg/dl Magnesium 2.0 (1.7-2.4) mg/dl Iron 40 (35-150) mcg/dl TIBC 314 (250-450) mcg/dl Unsaturated IBC 274 (155-355) mcg/dl Transferrin % Sat 13 L (15-50) % Ferritin 20.2 (8-388) ng/ml PG Care Time/CCT Total # of Minutes Spent Total Time Spent with Patient: Total time spent is greater than 50% in coordination of care (as documented) at patient's floor/unit and/or counseling patient: Coding Level of Care Code 34004 SUB INP/OBS CARE 3/50MIN Diagnoses S/P total knee arthroplasty Z96.659 Esophageal dysphagia R13.19 CAD, multiple vessel I25.10 GERD (gastroesophageal reflux disease) K21.9 On home oxygen therapy Z99.81 COPD (chronic obstructive pulmonary disease) J44.9
[2023-01-06] MEDS ORDERED: SODIUM CHLORIDE 0.9% 250 ML IV PRN (09:20)
--- NOTE | 2023-01-06 10:06 | Orthopedic Progress Note ---
Date of Service January 06, 2023 Assessment & Plan (1) S/P total knee arthroplasty: Plan: POD 1 - Right TKA with Dr. Snyder WBAT RLE with walker and knee immobilizer when out of bed PT/OT continue if able today. Ice PRN Pain medication as prescribed Appreciate Hospitalist assistance, glycemic control assistance appreciated. Discussed findings with Hospitalist. Lovenox for DVT prophylaxis. Will Hold Lovenox for now due to Acute blood loss anemia. New dressing applied to right knee Due to complaints of "chest pain", will order EKG to compare to previous due to Acute blood loss anemia and feelings of lightheadedness and dizziness. Plan for 1 Unit PRBC today, then recheck CBC after transfusion completed and in AM Will continue to follow Will plan to stay here today and re-eval. (2) Acute blood loss anemia: Plan: Symptomatic Ordered 1 unit PRBC to be given now EKG ordered Will recheck CBC after transfusion completed and in AM Consent on chart. Admission and Anticipated Discharge Date Admission Date: January 04, 2023 Subjective Resting in bed, has been out of bed this morning to go to the bathroom, but states that she's been lightheaded and dizzy. Could not participate in PT. States that she feels "tired, lightheadedness, worn out, weak, dizzy with sitting up". Denies having trouble urinating, states that is much better. Denies bloody BM, but has not had a BM yet during this admission, passing gas. Mild abdominal pain, states that her stomach was irritated from a banana this morning, but that is "normal". Denies shortness of breath. States that she is having her "normal chest pains". Review of Systems Review of Systems: As per HPI Physical Exam Musculoskeletal: Right knee dressings removed, incision right knee clean, dry and intact. [place] retained, mild ecchymosis around incision. No active drainage. No prepatellar effusion, trace to small effusion right knee intra-articularly. NO evidence of hematoma or seroma. Strength 5/5 right lower extremity. Distal pulses 1+, sensation right lower extremity normal. More difficult today to do a SLR. Calf is supple, mild discomfort with palpation with squeeze of calf. No distal edema. Results & Data Vital Signs (Past 12 Hours) Vital Signs Temp Pulse Pulse Resp BP BP Pulse Ox 01/06/23 07:36 01/06/23 07:25 36.8 C 68 18 95/63 L 93 01/05/23 23:15 37.1 C 78 20 103/65 94 O2 Del Method O2 Flow Rate 01/06/23 07:36 Room Air, Nasal Cannula 2 01/06/23 07:25 Nasal Cannula 2 01/05/23 23:15 Nasal Cannula 2 Laboratory Results 01/06/23 01/06/23 01/06/23 Range/Units 08:08 06:12 06:12 WBC (4.8-10.8) K/ul RBC (4.20-5.40) M/uL Hgb (12.0-16.0) g/dl Hct (37.0-47.0) % MCV (80.0-100.0) fL MCH (25.0-34.0) pg MCHC (32.0-36.0) g/dL RDW Std Deviation (36.4-46.3) fL RDW Coeff of Elicia (11.5-14.5) % Plt Count (130-400) K/uL MPV (9.4-12.4) fL Immature Gran % (Auto) % Neut % (Auto) % Lymph % (Auto) % [place] % (Auto) % Eos % (Auto) % Baso % (Auto) % Neut # (Auto) (1.40-6.50) K/uL Lymph # (Auto) (1.2-3.4) K/uL [place] # (Auto) (0.11-0.59) K/uL Eos # (Auto) (0-0.50) K/uL Baso # (Auto) (0-0.2) K/uL Immature Gran # (Auto) (0.01-0.20) K/uL Tear Drop Cells Ovalocytes Sodium 140 (136-145) mmol/L Potassium 4.4 (3.5-5.1) mmol/L Chloride 106 (98-107) mmol/L Carbon Dioxide 29 (21-32) mmol/L Anion Gap 5 (3-11) BUN 22 (6-23) mg/dl Creatinine 1.17 (0.6-1.2) mg/dl Est Cr Clr Drug Dosing 47.9 ml/min Est GFR ( Amer) 57.8 ml/min Est GFR (Non-Af Amer) 49.9 ml/min BUN/Creatinine Ratio 18.8 (10-20) Glucose 89 (70-99(Fasting)) mg/dl POC Glucose 105 H (70-99) mg/dl Calcium 8.7 (8.6-10.3) mg/dl Magnesium (1.7-2.4) mg/dl Iron (35-150) mcg/dl TIBC (250-450) mcg/dl Unsaturated IBC (155-355) mcg/dl Transferrin % Sat (15-50) % Ferritin (8-388) ng/ml Blood Type Pending Antibody Screen Pending Crossmatch See Detail 01/06/23 01/05/23 01/05/23 Range/Units 06:12 20:26 17:12 WBC 6.38 (4.8-10.8) K/ul RBC 2.57 L (4.20-5.40) M/uL Hgb 7.3 L (12.0-16.0) g/dl Hct 23.1 L (37.0-47.0) % MCV 89.9 (80.0-100.0) fL MCH 28.4 (25.0-34.0) pg MCHC 31.6 L (32.0-36.0) g/dL RDW Std Deviation 50.6 H (36.4-46.3) fL RDW Coeff of Elicia 15.5 H (11.5-14.5) % Plt Count 166 (130-400) K/uL MPV 9.5 (9.4-12.4) fL Immature Gran % (Auto) 0.3 % Neut % (Auto) 75.8 % Lymph % (Auto) 13.9 % [place] % (Auto) 10.0 % Eos % (Auto) 0.0 % Baso % (Auto) 0.0 % Neut # (Auto) 4.83 (1.40-6.50) K/uL Lymph # (Auto) 0.89 L (1.2-3.4) K/uL [place] # (Auto) 0.64 H (0.11-0.59) K/uL Eos # (Auto) 0.00 (0-0.50) K/uL Baso # (Auto) 0.00 (0-0.2) K/uL Immature Gran # (Auto) 0.02 (0.01-0.20) K/uL Tear Drop Cells 1+ Ovalocytes 1+ Sodium (136-145) mmol/L Potassium (3.5-5.1) mmol/L Chloride (98-107) mmol/L Carbon Dioxide (21-32) mmol/L Anion Gap (3-11) BUN (6-23) mg/dl Creatinine (0.6-1.2) mg/dl Est Cr Clr Drug Dosing ml/min Est GFR ( Amer) ml/min Est GFR (Non-Af Amer) ml/min BUN/Creatinine Ratio (10-20) Glucose (70-99(Fasting)) mg/dl POC Glucose 122 H 148 H (70-99) mg/dl Calcium (8.6-10.3) mg/dl Magnesium (1.7-2.4) mg/dl Iron (35-150) mcg/dl TIBC (250-450) mcg/dl Unsaturated IBC (155-355) mcg/dl Transferrin % Sat (15-50) % Ferritin (8-388) ng/ml Blood Type Antibody Screen Crossmatch 01/05/23 01/05/23 Range/Units 12:00 06:32 WBC (4.8-10.8) K/ul RBC (4.20-5.40) M/uL Hgb (12.0-16.0) g/dl Hct (37.0-47.0) % MCV (80.0-100.0) fL MCH (25.0-34.0) pg MCHC (32.0-36.0) g/dL RDW Std Deviation (36.4-46.3) fL RDW Coeff of Elicia (11.5-14.5) % Plt Count (130-400) K/uL MPV (9.4-12.4) fL Immature Gran % (Auto) % Neut % (Auto) % Lymph % (Auto) % [place] % (Auto) % Eos % (Auto) % Baso % (Auto) % Neut # (Auto) (1.40-6.50) K/uL Lymph # (Auto) (1.2-3.4) K/uL [place] # (Auto) (0.11-0.59) K/uL Eos # (Auto) (0-0.50) K/uL Baso # (Auto) (0-0.2) K/uL Immature Gran # (Auto) (0.01-0.20) K/uL Tear Drop Cells Ovalocytes Sodium (136-145) mmol/L Potassium (3.5-5.1) mmol/L Chloride (98-107) mmol/L Carbon Dioxide (21-32) mmol/L Anion Gap (3-11) BUN (6-23) mg/dl Creatinine (0.6-1.2) mg/dl Est Cr Clr Drug Dosing ml/min Est GFR ( Amer) ml/min Est GFR (Non-Af Amer) ml/min BUN/Creatinine Ratio (10-20) Glucose (70-99(Fasting)) mg/dl POC Glucose 169 H (70-99) mg/dl Calcium (8.6-10.3) mg/dl Magnesium 2.0 (1.7-2.4) mg/dl Iron 40 (35-150) mcg/dl TIBC 314 (250-450) mcg/dl Unsaturated IBC 274 (155-355) mcg/dl Transferrin % Sat 13 L (15-50) % Ferritin 20.2 (8-388) ng/ml Blood Type Antibody Screen Crossmatch
[2023-01-06 10:34] LABS: Basophils # (auto) 0.01 K/uL (0-0.2); Basophils % (auto) 0.1 %; Eosinophils # (auto) 0.03 K/uL (0-0.50); Eosinophils % (auto) 0.4 %; Hematocrit (blood only) 22.4 % (37.0-47.0); Hemoglobin 7.3 g/dl (12.0-16.0); Immature Granulocytes # (auto) 0.03 K/uL (0.01-0.20); Immature Granulocytes % (auto) 0.4 %; Lymphocytes # (auto) 0.99 K/uL (1.2-3.4); Lymphocytes % (auto) 14.6 %; Mean Corpuscular Hemoglobin 28.7 pg (25.0-34.0); Mean Corpuscular Hgb Conc 32.6 g/dL (32.0-36.0); Mean Corpuscular Volume 88.2 fL (80.0-100.0); Mean Platelet Volume 9.8 fL (9.4-12.4); Monocytes # (auto) 0.66 K/uL (0.11-0.59); Monocytes % (auto) 9.7 %; Neutrophils # (auto) 5.07 K/uL (1.40-6.50); Neutrophils % (auto) 74.8 %; Platelet Count 179 K/uL (130-400); RDW Coefficient of Variation 15.6 % (11.5-14.5); RDW Standard Deviation 50.1 fL (36.4-46.3); Red Blood Count 2.54 M/uL (4.20-5.40); White Blood Count 6.79 K/ul (4.8-10.8)
[2023-01-06 11:09] LABS: Ovalocytes 1+; Tear Drop Cells Occasional
[2023-01-06 14:59] LABS: Appearance Urine Clear (Clear); Bilirubin Urine Negative (Negative); Blood Urine Negative (Negative); Color Urine Yellow; Glucose Urine UA Negative (Negative); Ketones Urine Trace (Negative); Leukocyte Esterase Urine Negative (Negative); Nitrite Urine Negative (Negative); Protein Urine Negative (Negative); Specific Gravity Urine 1.019 (1.000-1.030); Urobilinogen Urine Negative (Negative)
--- NOTE | 2023-01-06 17:24 | Electrocardiogram Report ---
Test Reason : Blood Pressure : / mmHG Vent. Rate : 067 BPM Atrial Rate : 067 BPM P-R Int : 152 ms QRS Dur : 108 ms QT Int : 422 ms P-R-T Axes : 054 027 084 degrees QTc Int : 445 ms Normal sinus rhythm Incomplete right bundle branch block Nonspecific T wave abnormality Anteroseptal leads Abnormal ECG When compared with ECG of 04-NOV-2022 13:41, No significant change was found Confirmed by Shaheen Martinez [id number]) on 01/06/2023 5:24:18 PM Referred By: Narendra Snyder Confirmed By:Shaheen Martinez
[2023-01-06 17:30] LABS: Hematocrit (blood only) 26.9 % (37.0-47.0); Hemoglobin 8.7 g/dl (12.0-16.0)
[2023-01-06] MEDS: ATORVASTATIN 40 MG TAB PO SCH (20:40)
[2023-01-06] MEDS: traMADol HCL 50 MG TABLET PO PRN (20:42)
[2023-01-06] MEDS: MELATONIN 3 MG TAB PO SCH (20:42)
[2023-01-06] MEDS: QUEtiapine FUMARATE 300 MG TABLET PO SCH (20:42)
[2023-01-06] MEDS: BACLOFEN 10 MG TAB PO SCH (20:42)
[2023-01-06] MEDS: MAGNESIUM OXIDE 400 MG TAB PO SCH (20:42)
[2023-01-06] MEDS: ASPIRIN 81 MG ECTAB PO SCH (20:42)
[2023-01-06] MEDS: VERAPAMIL HCL 180 MG TABCR PO SCH (20:43)
[2023-01-07] MEDS: oxyCODONE HCL IR 5 MG TAB (IMMEDIATE RELEASE) PO PRN ×3 (03:51→17:01)
[2023-01-07] MEDS: ACETAMINOPHEN 500 MG TAB PO SCH ×3 (06:21→21:40)
[2023-01-07 06:53] LABS: Basophils # (auto) 0.02 K/uL (0-0.2); Basophils % (auto) 0.4 %; Eosinophils # (auto) 0.18 K/uL (0-0.50); Eosinophils % (auto) 3.7 %; Hematocrit (blood only) 25.3 % (37.0-47.0); Hemoglobin 8.3 g/dl (12.0-16.0); Immature Granulocytes # (auto) 0.03 K/uL (0.01-0.20); Immature Granulocytes % (auto) 0.6 %; Lymphocytes # (auto) 1.17 K/uL (1.2-3.4); Mean Corpuscular Hemoglobin 28.9 pg (25.0-34.0); Mean Corpuscular Hgb Conc 32.8 g/dL (32.0-36.0); Mean Corpuscular Volume 88.2 fL (80.0-100.0); Mean Platelet Volume 9.5 fL (9.4-12.4); Monocytes # (auto) 0.34 K/uL (0.11-0.59); Neutrophils # (auto) 3.14 K/uL (1.40-6.50); Neutrophils % (auto) 64.3 %; Platelet Count 158 K/uL (130-400); RDW Coefficient of Variation 15.9 % (11.5-14.5); RDW Standard Deviation 51.3 fL (36.4-46.3); Red Blood Count 2.87 M/uL (4.20-5.40); White Blood Count 4.88 K/ul (4.8-10.8)
[2023-01-07 07:12] LABS: BUN Creatinine Ratio 16.7 (10-20); Calcium 8.7 mg/dl (8.6-10.3); Creatinine Clr Calc Pharmacy 49.2 ml/min; Est GFR (African American) 59.7 ml/min; Est GFR (Non-African American) 51.5 ml/min; Potassium 4.1 mmol/L (3.5-5.1)
--- NOTE | 2023-01-07 07:52 | XRay Report ---
XR chest 1V portable HISTORY: Hypoxia. COMPARISON: Chest 01/05/2023. FINDINGS: No pneumothorax. No pleural effusions. The cardiac silhouette is normal in size. There are poststernotomy changes and calcifications within the aortic knob. No focal lung consolidations to sug gest a pneumonia. No evidence for pulmonary edema. IMPRESSION: No significant change compared to the prior study. No acute process. ACT 112: Negative or not required by law. Electronically signed by: Piyush Toscano M.D. 01/07/2023 7:51 AM
--- NOTE | 2023-01-07 08:05 | Hospitalist Progress Note ---
Date of Service January 07, 2023 Assessment & Plan (1) S/P total knee arthroplasty: Plan: POD#3 s/p Cemented right total knee arthroplasty with preservation of the ely [place] patella with Dr Snyder. EBL 20cc WBC wnl, afebrile Hgb dropped to 7.3 (held further NSAIDs, was given 1600ccIV perioperative as well) -- acute blood loss anemia from surgery/NSAID use in setting of gastritis/dilutional from IVF s/p 1u PRBC / and hgb improved and stable at 8.3 No bleeding present. Ortho resumed lovenox (she did get dose AM 01/06) and planning eliquis 2.5mg BID (hx esophagitis on recent EGD) Dizzy this morning / --> orthostatic VS obtained, + --> 500cc NSS bolus and repeat orthostatics planned. UA obtained yesterday w/o evidence for infection Stable on 2L as using prn at home and can continue as needed for now No significant hematoma on exam, does have some ecchymosis . Iron studies w/ iron 40, trans % sat low 13, ferritin 20.2. -->Could consider IV venofer infusion as well but holding off given low BPs and giving blood. Would hold off PO supplementation until moving her bowels. +BS on exam/passing gas. RN to provide suppository today as well PT/OT consultation Hospitalist service will follow along if remaining inpatient but recommend looking into rehab. Repeat orthostatics following IVF bolus, if symptoms resolved stable for dc to [facility] today if able. Would continue aggressive bowel regimen/consideration to add PO ferrous sulfate after she is moving her bowels. RN to provide suppository this morning. Remains on PPI BID for recent EGD w/ class B esophagitis. Pepcid IV daily. (2) Esophageal dysphagia: Plan: w/ recent EGD as above -- PPI increased to BID as should have been taking. Pepcid daily. No issues w/ swallowing NO FURTHER NSAIDs -- had gotten 3 of 4 doses toradol post op (3) CAD, multiple vessel: Plan: HxCAD s/p Inferior HI s/p CABG x 4 Vessels 08/20/2010, s/p Mid Left Circumflex Stent 2009, Carotid Artery Stenoses, Cerebrovascular Disease, Hypertension, Dyslipidemia cleared by cards pre-op, had been having some symptoms concerning for ischemia but had wanted to undergo surgery as cath delay surgery ~6 months and they added ranexa --> she is CP free currently (small couple second episode following orange this AM, reported chronic for her) Had Lexiscan 12/08/22 with fixed defect and mild amount of demetrius-infarct ischemia Remains on ASA, lipitor, ranexa, verapamil EKG w/ CP -- EKG appears unchanged from prior, and no recurrence WILL NEED OUTPT f/u at d/c. Would check trop w/ EKG if complaints of CP again but appears possibly diet related and NO FURTHER CP REPORTED (4) GERD (gastroesophageal reflux disease): Plan: continue PPI bid, pepcid daily (5) On home oxygen therapy: Plan: 2L prn at home, mostly using at night prior smoking history supplemental O2 to maintain sats, incentive spirometer monitor needs CXR w/o acute finding, no change on repeat (6) COPD (chronic obstructive pulmonary disease): Plan: continue roflumilast, Symbicort (or hospital equivalent)/albuterol nebs o2 as needed, titrate as able Plan Thank you for allowing hospitalist service to participate in the care of Ms Monroy. Hospitalist service will follow along if remaining inpatient but recommend looking into rehab. Repeat orthostatics following IVF bolus, if symptoms resolved stable for dc to [facility] today if able. Would continue aggressive bowel regimen/consideration to add PO ferrous sulfate after she is moving her bowels. RN to provide suppository this morning. Please call with any questions/concerns. Admission and Anticipated Discharge Date Admission Date: January 06, 2023 Supervising Physician Co-Signing Physician Notes YVES Supervision Note: I did not personally see or examine the patient today, but I verified all mcclure points of YVES Peña's assessment and plan with the following exceptions/additions: None Subjective eval this morning, doing alright. no further chest pain, reports breathing about her baseline, using 2L which she usually uses at night but occassionally through the day. Not having much PO intake, dehydrated on exam. Discussed orthostatics, positive and IVF bolus to be provided. She notes the dizziness symtoms occur more with positional changes. She is also nervous about going home alone and we did discuss may be better served at rehab. Messaged orthopedics regarding such. Passing some gas but no BM. Discussed suppository -- she is agreeable. Physical Exam Physical Exam: General: WD/WN female, +pallor--> improved, laying in bed, NAD but anxious about discharge home alone HEENT: head normocephalic, atraumatic, mm DRY, trachea midline Resp: diminished in the bases, no w/c/, on 2L NC 95%, no cough or tachypnea CV: RRR, faint systolic murmur, no significant pitting edema/calf tenderness, pulses palpable GI: +BS, soft, slightly distended, suprapubic tenderness : no manriquez MSK/Neuro: dressing to RIGHT knee c/d/i, ice pack in place, toes mobile, slight edema on the right compared to left, compartments soft/NT no focal deficit, no slurred speech Psych: AOx3, cooperative Results & Data Results & Data Vital Signs (Past 12 Hours) Vital Signs Temp Pulse Pulse Resp BP BP Pulse Ox 01/07/23 07:47 36.9 C 92 H 16 96/54 L 95 01/06/23 20:33 36.9 C 80 18 105/65 94 O2 Del Method O2 Flow Rate 01/07/23 07:47 Nasal Cannula 2 01/06/23 20:33 Nasal Cannula 2 Laboratory Results 01/07/23 01/07/23 01/06/23 Range/Units 06:23 06: 20:26 WBC 4.88 (4.8-10.8) K/ul RBC 2.87 L (4.20-5.40) M/uL Hgb 8.3 L (12.0-16.0) g/dl Hct 25.3 L (37.0-47.0) % MCV 88.2 (80.0-100.0) fL MCH 28.9 (25.0-34.0) pg MCHC 32.8 (32.0-36.0) g/dL RDW Std Deviation 51.3 H (36.4-46.3) fL RDW Coeff of Elicia 15.9 H (11.5-14.5) % Plt Count 158 (130-400) K/uL MPV 9.5 (9.4-12.4) fL Immature Gran % (Auto) 0.6 % Neut % (Auto) 64.3 % Lymph % (Auto) 24.0 % [place] % (Auto) 7.0 % Eos % (Auto) 3.7 % Baso % (Auto) 0.4 % Neut # (Auto) 3.14 (1.40-6.50) K/uL Lymph # (Auto) 1.17 L (1.2-3.4) K/uL [place] # (Auto) 0.34 (0.11-0.59) K/uL Eos # (Auto) 0.18 (0-0.50) K/uL Baso # (Auto) 0.02 (0-0.2) K/uL Immature Gran # (Auto) 0.03 (0.01-0.20) K/uL Tear Drop Cells Ovalocytes Sodium 140 (136-145) mmol/L Potassium 4.1 (3.5-5.1) mmol/L Chloride 106 (98-107) mmol/L Carbon Dioxide 29 (21-32) mmol/L Anion Gap 5 (3-11) BUN 19 (6-23) mg/dl Creatinine 1.14 (0.6-1.2) mg/dl Est Cr Clr Drug Dosing 49.2 ml/min Est GFR ( Amer) 59.7 ml/min Est GFR (Non-Af Amer) 51.5 ml/min BUN/Creatinine Ratio 16.7 (10-20) Glucose 84 (70-99(Fasting)) mg/dl POC Glucose 127 H (70-99) mg/dl Calcium 8.7 (8.6-10.3) mg/dl Urine Color Urine Appearance (Clear) Urine pH (4.5-7.5) Ur Specific [place] (1.000-1.030) Urine Protein (Negative) Urine Glucose (UA) (Negative) Urine Ketones (Negative) Urine Blood (Negative) Urine Nitrite (Negative) Urine Bilirubin (Negative) Urine Urobilinogen (Negative) Ur Leukocyte Esterase (Negative) Blood Type Antibody Screen Crossmatch 01/06/23 01/06/23 01/06/23 Range/Units 17:10 16:47 14:38 WBC (4.8-10.8) K/ul RBC (4.20-5.40) M/uL Hgb 8.7 L (12.0-16.0) g/dl Hct 26.9 L (37.0-47.0) % MCV (80.0-100.0) fL MCH (25.0-34.0) pg MCHC (32.0-36.0) g/dL RDW Std Deviation (36.4-46.3) fL RDW Coeff of Elicia (11.5-14.5) % Plt Count (130-400) K/uL MPV (9.4-12.4) fL Immature Gran % (Auto) % Neut % (Auto) % Lymph % (Auto) % [place] % (Auto) % Eos % (Auto) % Baso % (Auto) % Neut # (Auto) (1.40-6.50) K/uL Lymph # (Auto) (1.2-3.4) K/uL [place] # (Auto) (0.11-0.59) K/uL Eos # (Auto) (0-0.50) K/uL Baso # (Auto) (0-0.2) K/uL Immature Gran # (Auto) (0.01-0.20) K/uL Tear Drop Cells Ovalocytes Sodium (136-145) mmol/L Potassium (3.5-5.1) mmol/L Chloride (98-107) mmol/L Carbon Dioxide (21-32) mmol/L Anion Gap (3-11) BUN (6-23) mg/dl Creatinine (0.6-1.2) mg/dl Est Cr Clr Drug Dosing ml/min Est GFR ( Amer) ml/min Est GFR (Non-Af Amer) ml/min BUN/Creatinine Ratio (10-20) Glucose (70-99(Fasting)) mg/dl POC Glucose 91 (70-99) mg/dl Calcium (8.6-10.3) mg/dl Urine Color Yellow Urine Appearance Clear (Clear) Urine pH 6.0 (4.5-7.5) Ur Specific [place] 1.019 (1.000-1.030) Urine Protein Negative (Negative) Urine Glucose (UA) Negative (Negative) Urine Ketones Trace H (Negative) Urine Blood Negative (Negative) Urine Nitrite Negative (Negative) Urine Bilirubin Negative (Negative) Urine Urobilinogen Negative (Negative) Ur Leukocyte Esterase Negative (Negative) Blood Type Antibody Screen Crossmatch 01/06/23 01/06/23 01/06/23 Range/Units 12:08 10:17 08:08 WBC 6.79 (4.8-10.8) K/ul RBC 2.54 L (4.20-5.40) M/uL Hgb 7.3 L (12.0-16.0) g/dl Hct 22.4 L (37.0-47.0) % MCV 88.2 (80.0-100.0) fL MCH 28.7 (25.0-34.0) pg MCHC 32.6 (32.0-36.0) g/dL RDW Std Deviation 50.1 H (36.4-46.3) fL RDW Coeff of Elicia 15.6 H (11.5-14.5) % Plt Count 179 (130-400) K/uL MPV 9.8 (9.4-12.4) fL Immature Gran % (Auto) 0.4 % Neut % (Auto) 74.8 % Lymph % (Auto) 14.6 % [place] % (Auto) 9.7 % Eos % (Auto) 0.4 % Baso % (Auto) 0.1 % Neut # (Auto) 5.07 (1.40-6.50) K/uL Lymph # (Auto) 0.99 L (1.2-3.4) K/uL [place] # (Auto) 0.66 H (0.11-0.59) K/uL Eos # (Auto) 0.03 (0-0.50) K/uL Baso # (Auto) 0.01 (0-0.2) K/uL Immature Gran # (Auto) 0.03 (0.01-0.20) K/uL Tear Drop Cells Occasional Ovalocytes 1+ Sodium (136-145) mmol/L Potassium (3.5-5.1) mmol/L Chloride (98-107) mmol/L Carbon Dioxide (21-32) mmol/L Anion Gap (3-11) BUN (6-23) mg/dl Creatinine (0.6-1.2) mg/dl Est Cr Clr Drug Dosing ml/min Est GFR ( Amer) ml/min Est GFR (Non-Af Amer) ml/min BUN/Creatinine Ratio (10-20) Glucose (70-99(Fasting)) mg/dl POC Glucose 109 H 105 H (70-99) mg/dl Calcium (8.6-10.3) mg/dl Urine Color Urine Appearance (Clear) Urine pH (4.5-7.5) Ur Specific [place] (1.000-1.030) Urine Protein (Negative) Urine Glucose (UA) (Negative) Urine Ketones (Negative) Urine Blood (Negative) Urine Nitrite (Negative) Urine Bilirubin (Negative) Urine Urobilinogen (Negative) Ur Leukocyte Esterase (Negative) Blood Type Antibody Screen Crossmatch 01/06/23 Range/Units 06:12 WBC (4.8-10.8) K/ul RBC (4.20-5.40) M/uL Hgb (12.0-16.0) g/dl Hct (37.0-47.0) % MCV (80.0-100.0) fL MCH (25.0-34.0) pg MCHC (32.0-36.0) g/dL RDW Std Deviation (36.4-46.3) fL RDW Coeff of Elicia (11.5-14.5) % Plt Count (130-400) K/uL MPV (9.4-12.4) fL Immature Gran % (Auto) % Neut % (Auto) % Lymph % (Auto) % [place] % (Auto) % Eos % (Auto) % Baso % (Auto) % Neut # (Auto) (1.40-6.50) K/uL Lymph # (Auto) (1.2-3.4) K/uL [place] # (Auto) (0.11-0.59) K/uL Eos # (Auto) (0-0.50) K/uL Baso # (Auto) (0-0.2) K/uL Immature Gran # (Auto) (0.01-0.20) K/uL Tear Drop Cells Ovalocytes Sodium (136-145) mmol/L Potassium (3.5-5.1) mmol/L Chloride (98-107) mmol/L Carbon Dioxide (21-32) mmol/L Anion Gap (3-11) BUN (6-23) mg/dl Creatinine (0.6-1.2) mg/dl Est Cr Clr Drug Dosing ml/min Est GFR ( Amer) ml/min Est GFR (Non-Af Amer) ml/min BUN/Creatinine Ratio (10-20) Glucose (70-99(Fasting)) mg/dl POC Glucose (70-99) mg/dl Calcium (8.6-10.3) mg/dl Urine Color Urine Appearance (Clear) Urine pH (4.5-7.5) Ur Specific [place] (1.000-1.030) Urine Protein (Negative) Urine Glucose (UA) (Negative) Urine Ketones (Negative) Urine Blood (Negative) Urine Nitrite (Negative) Urine Bilirubin (Negative) Urine Urobilinogen (Negative) Ur Leukocyte Esterase (Negative) Blood Type A Positive Antibody Screen NEGATIVE Crossmatch See Detail Diagnostic Findings Chest X-Ray 01/07/23 07:00 XR chest 1V portable HISTORY: Hypoxia. COMPARISON: Chest 01/05/2023. FINDINGS: No pneumothorax. No pleural effusions. The cardiac silhouette is normal in size. There are poststernotomy changes and calcifications within the aortic knob. No focal lung consolidations to suggest a pneumonia. No evidence for pulmonary edema. IMPRESSION: No significant change compared to the prior study. No acute process. ACT 112: Negative or not required by law. Electronically signed by: Piyush Toscano M.D. 01/07/2023 7:51 AM PG Care Time/CCT Total # of Minutes Spent Total Time Spent with Patient: Total time spent is greater than 50% in coordination of care (as documented) at patient's floor/unit and/or counseling patient: Coding Level of Care Code 37155 SUB INP/OBS CARE 3/50MIN Diagnoses S/P total knee arthroplasty Z96.659 Esophageal dysphagia R13.19 CAD, multiple vessel I25.10 GERD (gastroesophageal reflux disease) K21.9 On home oxygen therapy Z99.81 COPD (chronic obstructive pulmonary disease) J44.9
[2023-01-07] MEDS: POLYETHYLENE (MIRALAX) 17 GM PACK PO SCH ×2 (08:48→21:41)
[2023-01-07] MEDS: NICOTINE 14 MG/24 HR PATCH TD SCH (08:48)
[2023-01-07] MEDS: ASCORBIC ACID 500 MG TAB PO SCH (08:49)
[2023-01-07] MEDS: RANOLAZINE 500 MG ER TAB PO SCH ×2 (08:49→21:43)
[2023-01-07] MEDS: CYANOCOBALAMIN (B-12) 500 MCG TABLET PO SCH (08:49)
[2023-01-07] MEDS: ROFLUMILAST 500 MCG TAB PO SCH (08:49)
[2023-01-07] MEDS: DOCUSATE SODIUM/SENNA 50/8.6MG TAB PO SCH (08:49)
[2023-01-07] MEDS: busPIRone 5 MG TAB PO SCH ×2 (08:50→21:39)
[2023-01-07] MEDS: CHOLECALCIFEROL 1,000 UNITS 25 MCG TAB PO SCH (08:50)
[2023-01-07] MEDS: lamoTRIgine 100 MG TAB PO SCH ×2 (08:50→21:42)
[2023-01-07] MEDS: MULTIVITAMIN TAB PO SCH (08:50)
[2023-01-07] MEDS: DULoxetine HCL 30 MG CAP PO SCH (08:50)
[2023-01-07] MEDS: PANTOprazole 40 MG TAB PO SCH ×2 (08:50→21:43)
[2023-01-07] MEDS: buPROPion SR 150 MG TABCR PO SCH ×2 (08:50→21:43)
[2023-01-07] MEDS: OMEGA-3 (PURIFIED FISH OIL) 1 GM CAP PO SCH ×2 (08:50→21:39)
[2023-01-07] MEDS: GABAPENTIN 600 MG TAB PO SCH (08:50)
[2023-01-07] MEDS: DOCUSATE SODIUM 100 MG CAP PO SCH ×2 (08:51→21:40)
[2023-01-07] MEDS: FLUTICASONE/VILANTEROL 200/25MCG 14 PUFFS/INHALER INH SCH (08:51)
[2023-01-07] MEDS: FAMOTIDINE 20 MG in SYRINGE 3 ML IV SCH (08:51)
--- NOTE | 2023-01-07 09:09 | Orthopedic Progress Note ---
Date of Service January 07, 2023 Assessment & Plan (1) S/P total knee arthroplasty: Plan: POD #3 - Right TKA with Dr. Snyder WBAT RLE with walker and knee immobilizer when out of bed PT/OT today may need to be transitioned to SNF/rehabilitation dependent on response to therapies Pain medication as prescribed upon d/c will need oxycodone 5mg sent to be used for post op pain control Ice to the right knee Prn Appreciate Hospitalist assistance with dizziness/SOB, Julianna aware of pts symptoms on exam she will update myself and Dr. Snyder after pt is examined this am Lovenox for DVT prophylaxis. ISABELLE Groves aware to restart now. She will transition to Eliquis 2.5 BID x6 weeks upon d/c. Will need prescription sent Dressing was not changed today, this in clean and intact. Per report, EKG showed NSR w/ incomplete RBBB with Twave abnormality, compared to previous EKG no significant change. Patient had received 1 Unit PRBC yesterday, continues to have dizziness although reported improved, more w/ positioning. Will obtain orthostatic BP readings Will monitor response to PT and if medically stable d/c home today with home services or transition to rehab/SNF Present on Admission?: Yes (2) Acute blood loss anemia: Plan: Symptomatic Ordered 1 unit PRBC to be given now EKG ordered Will recheck CBC after transfusion completed and in AM Consent on chart. Admission and Anticipated Discharge Date Admission Date: January 06, 2023 Subjective Patient is a 62-year-old female who is a known patient to Dr. Snyder. She is postop day #3 status post a right total knee arthroplasty. She was seen bedside this a.m. RN, Germain present. Patient reports she is feeling a little bit better compared to yesterday. She reports she continues to have some dizziness that will come and go. She feels this may be more positional but is unsure because she has not been up much. She states she is no longer having chest pain but at times will have shortness of breath. She does report using oxygen at home, 2 L as needed. She denies any coughing at this time. She reports she is nervous about returning home. She is having 2 of her daughters help her and stay with her. She complains of pain in her right knee and reports that 610. Her last medication was provided to her at 3 AM and the nurse is going to give it to her now. She has been able to eat breakfast without any nausea or vomiting. She denies any abdominal pain. She states she is able to urinate better today. She denies any burning odor or discoloration. She denies any calf pain, fever, chills or other concerns. She does report having a walker at home. Review of Systems Review of Systems: Please refer to HPI Physical Exam Physical Exam: General: Patient is sitting upright in bed just finishing breakfast. She is alert and oriented x3 no acute distress. Nasal cannula was repositioned Integumentary/musculoskeletal: BRENDA hose is in place thigh-high. Dressing is covering the incision. Negative for any soiling. Minimal edema in the right lower extremity when compared to the left. Her calf is soft and nontender. She is able to plantar and dorsiflex ankle. She is able to tolerate knee range of motion approximately -8 degrees extension and can flex the knee to approximately 30 degrees. Patient's not quite able to do a straight leg raise without assistance on the right lower extremity. Her sensation is intact to light touch. Dorsal pedis pulse 1+. Results & Data Vital Signs (Past 12 Hours) Vital Signs Temp Pulse Resp BP Pulse Ox O2 Del Method O2 Flow Rate 01/07/23 07:30 Nasal Cannula 2 01/07/23 07:47 36.9 C 92 H 16 96/54 L 95 Nasal Cannula 2 Laboratory Results 01/07/23 01/07/23 01/07/23 Range/Units 08:21 06:23 06:23 WBC 4.88 (4.8-10.8) K/ul RBC 2.87 L (4.20-5.40) M/uL Hgb 8.3 L (12.0-16.0) g/dl Hct 25.3 L (37.0-47.0) % MCV 88.2 (80.0-100.0) fL MCH 28.9 (25.0-34.0) pg MCHC 32.8 (32.0-36.0) g/dL RDW Std Deviation 51.3 H (36.4-46.3) fL RDW Coeff of Elicia 15.9 H (11.5-14.5) % Plt Count 158 (130-400) K/uL MPV 9.5 (9.4-12.4) fL Immature Gran % (Auto) 0.6 % Neut % (Auto) 64.3 % Lymph % (Auto) 24.0 % [place] % (Auto) 7.0 % Eos % (Auto) 3.7 % Baso % (Auto) 0.4 % Neut # (Auto) 3.14 (1.40-6.50) K/uL Lymph # (Auto) 1.17 L (1.2-3.4) K/uL [place] # (Auto) 0.34 (0.11-0.59) K/uL Eos # (Auto) 0.18 (0-0.50) K/uL Baso # (Auto) 0.02 (0-0.2) K/uL Immature Gran # (Auto) 0.03 (0.01-0.20) K/uL Tear Drop Cells Ovalocytes Sodium 140 (136-145) mmol/L Potassium 4.1 (3.5-5.1) mmol/L Chloride 106 (98-107) mmol/L Carbon Dioxide 29 (21-32) mmol/L Anion Gap 5 (3-11) BUN 19 (6-23) mg/dl Creatinine 1.14 (0.6-1.2) mg/dl Est Cr Clr Drug Dosing 49.2 ml/min Est GFR ( Amer) 59.7 ml/min Est GFR (Non-Af Amer) 51.5 ml/min BUN/Creatinine Ratio 16.7 (10-20) Glucose 84 (70-99(Fasting)) mg/dl POC Glucose 107 H (70-99) mg/dl Calcium 8.7 (8.6-10.3) mg/dl Urine Color Urine Appearance (Clear) Urine pH (4.5-7.5) Ur Specific [place] (1.000-1.030) Urine Protein (Negative) Urine Glucose (UA) (Negative) Urine Ketones (Negative) Urine Blood (Negative) Urine Nitrite (Negative) Urine Bilirubin (Negative) Urine Urobilinogen (Negative) Ur Leukocyte Esterase (Negative) Blood Type Antibody Screen Crossmatch 01/06/23 01/06/23 01/06/23 Range/Units 20:26 17:10 16:47 WBC (4.8-10.8) K/ul RBC (4.20-5.40) M/uL Hgb 8.7 L (12.0-16.0) g/dl Hct 26.9 L (37.0-47.0) % MCV (80.0-100.0) fL MCH (25.0-34.0) pg MCHC (32.0-36.0) g/dL RDW Std Deviation (36.4-46.3) fL RDW Coeff of Elicia (11.5-14.5) % Plt Count (130-400) K/uL MPV (9.4-12.4) fL Immature Gran % (Auto) % Neut % (Auto) % Lymph % (Auto) % [place] % (Auto) % Eos % (Auto) % Baso % (Auto) % Neut # (Auto) (1.40-6.50) K/uL Lymph # (Auto) (1.2-3.4) K/uL [place] # (Auto) (0.11-0.59) K/uL Eos # (Auto) (0-0.50) K/uL Baso # (Auto) (0-0.2) K/uL Immature Gran # (Auto) (0.01-0.20) K/uL Tear Drop Cells Ovalocytes Sodium (136-145) mmol/L Potassium (3.5-5.1) mmol/L Chloride (98-107) mmol/L Carbon Dioxide (21-32) mmol/L Anion Gap (3-11) BUN (6-23) mg/dl Creatinine (0.6-1.2) mg/dl Est Cr Clr Drug Dosing ml/min Est GFR ( Amer) ml/min Est GFR (Non-Af Amer) ml/min BUN/Creatinine Ratio (10-20) Glucose (70-99(Fasting)) mg/dl POC Glucose 127 H 91 (70-99) mg/dl Calcium (8.6-10.3) mg/dl Urine Color Urine Appearance (Clear) Urine pH (4.5-7.5) Ur Specific [place] (1.000-1.030) Urine Protein (Negative) Urine Glucose (UA) (Negative) Urine Ketones (Negative) Urine Blood (Negative) Urine Nitrite (Negative) Urine Bilirubin (Negative) Urine Urobilinogen (Negative) Ur Leukocyte Esterase (Negative) Blood Type Antibody Screen Crossmatch 06/01/23 06/01/23 06/01/23 Range/Units 14:38 12:08 10:17 WBC 6.79 (4.8-10.8) K/ul RBC 2.54 L (4.20-5.40) M/uL Hgb 7.3 L (12.0-16.0) g/dl Hct 22.4 L (37.0-47.0) % MCV 88.2 (80.0-100.0) fL MCH 28.7 (25.0-34.0) pg MCHC 32.6 (32.0-36.0) g/dL RDW Std Deviation 50.1 H (36.4-46.3) fL RDW Coeff of Elicia 15.6 H (11.5-14.5) % Plt Count 179 (130-400) K/uL MPV 9.8 (9.4-12.4) fL Immature Gran % (Auto) 0.4 % Neut % (Auto) 74.8 % Lymph % (Auto) 14.6 % [place] % (Auto) 9.7 % Eos % (Auto) 0.4 % Baso % (Auto) 0.1 % Neut # (Auto) 5.07 (1.40-6.50) K/uL Lymph # (Auto) 0.99 L (1.2-3.4) K/uL [place] # (Auto) 0.66 H (0.11-0.59) K/uL Eos # (Auto) 0.03 (0-0.50) K/uL Baso # (Auto) 0.01 (0-0.2) K/uL Immature Gran # (Auto) 0.03 (0.01-0.20) K/uL Tear Drop Cells Occasional Ovalocytes 1+ Sodium (136-145) mmol/L Potassium (3.5-5.1) mmol/L Chloride (98-107) mmol/L Carbon Dioxide (21-32) mmol/L Anion Gap (3-11) BUN (6-23) mg/dl Creatinine (0.6-1.2) mg/dl Est Cr Clr Drug Dosing ml/min Est GFR ( Amer) ml/min Est GFR (Non-Af Amer) ml/min BUN/Creatinine Ratio (10-20) Glucose (70-99(Fasting)) mg/dl POC Glucose 109 H (70-99) mg/dl Calcium (8.6-10.3) mg/dl Urine Color Yellow Urine Appearance Clear (Clear) Urine pH 6.0 (4.5-7.5) Ur Specific [place] 1.019 (1.000-1.030) Urine Protein Negative (Negative) Urine Glucose (UA) Negative (Negative) Urine Ketones Trace H (Negative) Urine Blood Negative (Negative) Urine Nitrite Negative (Negative) Urine Bilirubin Negative (Negative) Urine Urobilinogen Negative (Negative) Ur Leukocyte Esterase Negative (Negative) Blood Type Antibody Screen Crossmatch 01/06/23 Range/Units 06:12 WBC (4.8-10.8) K/ul RBC (4.20-5.40) M/uL Hgb (12.0-16.0) g/dl Hct (37.0-47.0) % MCV (80.0-100.0) fL MCH (25.0-34.0) pg MCHC (32.0-36.0) g/dL RDW Std Deviation (36.4-46.3) fL RDW Coeff of Elicia (11.5-14.5) % Plt Count (130-400) K/uL MPV (9.4-12.4) fL Immature Gran % (Auto) % Neut % (Auto) % Lymph % (Auto) % [place] % (Auto) % Eos % (Auto) % Baso % (Auto) % Neut # (Auto) (1.40-6.50) K/uL Lymph # (Auto) (1.2-3.4) K/uL [place] # (Auto) (0.11-0.59) K/uL Eos # (Auto) (0-0.50) K/uL Baso # (Auto) (0-0.2) K/uL Immature Gran # (Auto) (0.01-0.20) K/uL Tear Drop Cells Ovalocytes Sodium (136-145) mmol/L Potassium (3.5-5.1) mmol/L Chloride (98-107) mmol/L Carbon Dioxide (21-32) mmol/L Anion Gap (3-11) BUN (6-23) mg/dl Creatinine (0.6-1.2) mg/dl Est Cr Clr Drug Dosing ml/min Est GFR ( Amer) ml/min Est GFR (Non-Af Amer) ml/min BUN/Creatinine Ratio (10-20) Glucose (70-99(Fasting)) mg/dl POC Glucose (70-99) mg/dl Calcium (8.6-10.3) mg/dl Urine Color Urine Appearance (Clear) Urine pH (4.5-7.5) Ur Specific [place] (1.000-1.030) Urine Protein (Negative) Urine Glucose (UA) (Negative) Urine Ketones (Negative) Urine Blood (Negative) Urine Nitrite (Negative) Urine Bilirubin (Negative) Urine Urobilinogen (Negative) Ur Leukocyte Esterase (Negative) Blood Type A Positive Antibody Screen NEGATIVE Crossmatch See Detail Intake & Output 01/05/23 01/06/23 01/07/23 01/08/23 06:59 06:59 06:59 06:59 Intake Total 4381.667 / 4381.667 1160 / 1160 310 / 310 Output Total 1770 / 1770 2575 / 2575 900 / 900 Balance 2611.667 / 2611.667 -1415 / -1415 -590 / -590 Weight 73.6 kg 73.6 kg Diagnostic Findings Chest X-Ray 01/07/23 07:00 XR chest 1V portable HISTORY: Hypoxia. COMPARISON: Chest 01/05/2023. FINDINGS: No pneumothorax. No pleural effusions. The cardiac silhouette is normal in size. There are poststernotomy changes and calcifications within the aortic knob. No focal lung consolidations to suggest a pneumonia. No evidence for pulmonary edema. IMPRESSION: No significant change compared to the prior study. No acute process. ACT 112: Negative or not required by law. Electronically signed by: Piyush Toscano M.D. 01/07/2023 7:51 AM
[2023-01-07] MEDS ORDERED: SODIUM CHLORIDE 0.9% 1000ML 500 ML IV ONE (09:42)
[2023-01-07] MEDS ORDERED: bisacodyL 10 MG SUPP PR STA (10:12)
[2023-01-07] MEDS ORDERED: ENOXAPARIN INJ 30 MG/0.3 ML SYR SQ ONE (12:45)
[2023-01-07] MEDS: ENOXAPARIN INJ 30 MG/0.3 ML SYR SQ SCH (21:39)
[2023-01-07] MEDS: VERAPAMIL HCL 180 MG TABCR PO SCH (21:40)
[2023-01-07] MEDS: ATORVASTATIN 40 MG TAB PO SCH (21:40)
[2023-01-07] MEDS: QUEtiapine FUMARATE 300 MG TABLET PO SCH (21:41)
[2023-01-07] MEDS: MELATONIN 3 MG TAB PO SCH (21:42)
[2023-01-07] MEDS: ASPIRIN 81 MG ECTAB PO SCH (21:42)
[2023-01-07] MEDS: MAGNESIUM OXIDE 400 MG TAB PO SCH (21:43)
[2023-01-08] MEDS: ACETAMINOPHEN 500 MG TAB PO SCH ×3 (05:44→21:08)
[2023-01-08] MEDS: oxyCODONE HCL IR 5 MG TAB (IMMEDIATE RELEASE) PO PRN (05:46)
[2023-01-08 06:14] LABS: Hematocrit (blood only) 26.3 % (37.0-47.0); Hemoglobin 8.5 g/dl (12.0-16.0); Mean Corpuscular Hemoglobin 28.7 pg (25.0-34.0); Mean Corpuscular Hgb Conc 32.3 g/dL (32.0-36.0); Mean Corpuscular Volume 88.9 fL (80.0-100.0); Mean Platelet Volume 9.9 fL (9.4-12.4); Platelet Count 162 K/uL (130-400); RDW Coefficient of Variation 15.8 % (11.5-14.5); RDW Standard Deviation 50.2 fL (36.4-46.3); Red Blood Count 2.96 M/uL (4.20-5.40); White Blood Count 3.98 K/ul (4.8-10.8)
[2023-01-08 06:22] LABS: BUN Creatinine Ratio 16.9 (10-20); Calcium 8.9 mg/dl (8.6-10.3); Est GFR (African American) 80.5 ml/min; Est GFR (Non-African American) 69.5 ml/min; Potassium 4.2 mmol/L (3.5-5.1)
--- NOTE | 2023-01-08 07:55 | Hospitalist Progress Note ---
Date of Service January 08, 2023 Assessment & Plan (1) S/P total knee arthroplasty: Plan: POD#4 s/p Cemented right total knee arthroplasty with preservation of the [place] patella with Dr Snyder. EBL 20cc WBC wnl, afebrile s/p 1u PRBC for hx 7.3, held further NSAIDs. Also was given >1600cc IVF post-op Hgb stable on repeat 8.3--> 8.5 and was given 500cc NSS bolus for + orthostatics/dizziness AM 01/07 Held Gabapentin/PM baclofen, instructed to limit oxycodone to 5mg prn (she has only gotten 5mg last two administrations since afternoon 01/07 and pain seems to be stable) Aggressive bowel regimen added prior -- multiple BMs since yesterday reported More awake/alert today -- resumed gabapentin/baclofen to prevent withdrawal. To limit oxycodone to 5mg as needed to prevent oversedation Can consider IV Venofer/PO iron supplementation PT/OT consulted - patient stating she would like rehab at d/c. Agree if she is still agreeable, otherwise home w/ HH CM to follow Staying through weekend waiting for rehab. (2) Esophageal dysphagia: Plan: w/ recent EGD as above -- PPI increased to BID as should have been taking with recent EGD Pepcid daily. No issues w/ swallowing NO FURTHER NSAIDs -- had gotten 3 of 4 doses Toradol post op (3) CAD, multiple vessel: Plan: HxCAD s/p Inferior [place] s/p CABG x 4 Vessels 08/20/2010, s/p Mid Left Circumflex Stent 2009, Carotid Artery Stenoses, Cerebrovascular Disease, Hypertension, Dyslipidemia cleared by cards pre-op, had been having some symptoms concerning for ischemia but had wanted to undergo surgery as cath delay surgery ~6 months and they added ranexa --> she is CP free currently (small couple second episode following orange this AM, reported chronic for her) Had Lexiscan 12/08/22 with fixed defect and mild amount of demetrius-infarct ischemia Remains on ASA, lipitor, ranexa, verapamil EKG w/ CP -- EKG appears unchanged from prior, and no recurrence WILL NEED OUTPT f/u at d/c. Would check trop w/ EKG if complaints of CP again but appears possibly diet related and NO FURTHER CP REPORTED (4) GERD (gastroesophageal reflux disease): Plan: continue PPI bid, pepcid daily -- recent EGD w/ esophagitis w/ Dr Case (5) On home oxygen therapy: Plan: 2L prn at home, mostly using at night, prior smoking history CXR w/o acute process, no change on repeat (6) COPD (chronic obstructive pulmonary disease): Plan: continue roflumilast, Symbicort (or hospital equivalent)/albuterol nebs o2 as needed, titrate as able Plan Thank you for allowing hospitalist service to participate in the care of Ms Monroy. Hospitalist service will follow along if remaining inpatient but recommend looking into rehab. Appears much more awake/alert, less O2 requirements w/ less opiates and discussed limiting Please call with any questions/concerns. Admission and Anticipated Discharge Date Admission Date: January 06, 2023 Supervising Physician Co-Signing Physician Notes PA Supervision Note: I did not personally see or examine the patient today, but I verified all mcclure points of YVES ePña's assessment and plan with the following exceptions/additions: None Subjective Eval this morning, up in bed, feeling much improved from yesterday. multiple BM since bowel regimen. was on room air this morning but occasional desat to 86/87 and placed on 2L as needed. Denies any chest pain/shortness of breath, abdominal pain, nausea or vomiting. Anxious about discharge and she is still hoping for rehab. Physical Exam Physical Exam: General: WD/WN female, improvement in energy/alertness HEENT: head normocephalic, atraumatic, mmm, trachea midline Resp: CTA, no w/c/r, occasional NC use2L, no tachypnea, able to talk in complete sentences GI: +BS, soft/NT : no manriquez MSK/Neuro: dressing to RIGHT knee c/d/i, ice pack in place, toes mobile, slight edema on the right compared to left DECREASED, compartments soft/NT no focal deficit, no slurred speech Psych: AOx3, cooperative Results & Data Results & Data Vital Signs (Past 12 Hours) Vital Signs Temp Pulse Resp BP Pulse Ox O2 Del Method O2 Flow Rate 01/08/23 07:11 37.4 C 90 18 128/77 93 Room Air 01/07/23 20:21 Nasal Cannula 2 01/07/23 20:22 36.6 C 81 16 137/80 96 Nasal Cannula 2 Laboratory Results 01/08/23 01/08/23 01/07/23 Range/Units 05:40 05:40 12:08 WBC 3.98 L (4.8-10.8) K/ul RBC 2.96 L (4.20-5.40) M/uL Hgb 8.5 L (12.0-16.0) g/dl Hct 26.3 L (37.0-47.0) % MCV 88.9 (80.0-100.0) fL MCH 28.7 (25.0-34.0) pg MCHC 32.3 (32.0-36.0) g/dL RDW Std Deviation 50.2 H (36.4-46.3) fL RDW Coeff of Elicia 15.8 H (11.5-14.5) % Plt Count 162 (130-400) K/uL MPV 9.9 (9.4-12.4) fL Sodium 141 (136-145) mmol/L Potassium 4.2 (3.5-5.1) mmol/L Chloride 105 (98-107) mmol/L Carbon Dioxide 31 (21-32) mmol/L Anion Gap 5 (3-11) BUN 15 (6-23) mg/dl Creatinine 0.89 (0.6-1.2) mg/dl Est Cr Clr Drug Dosing 63.0 ml/min Est GFR ( Amer) 80.5 ml/min Est GFR (Non-Af Amer) 69.5 ml/min BUN/Creatinine Ratio 16.9 (10-20) Glucose 90 (70-99(Fasting)) mg/dl POC Glucose 113 H (70-99) mg/dl Calcium 8.9 (8.6-10.3) mg/dl PG Care Time/CCT Total # of Minutes Spent Total Time Spent with Patient: Total time spent is greater than 50% in coordination of care (as documented) at patient's floor/unit and/or counseling patient: Coding Level of Care Code 53288 SUB INP/OBS CARE 3/50MIN Diagnoses S/P total knee arthroplasty Z96.659 Esophageal dysphagia R13.19 CAD, multiple vessel I25.10 GERD (gastroesophageal reflux disease) K21.9 On home oxygen therapy Z99.81 COPD (chronic obstructive pulmonary disease) J44.9
[2023-01-08] MEDS: busPIRone 5 MG TAB PO SCH ×2 (08:35→21:07)
[2023-01-08] MEDS: GABAPENTIN 600 MG TAB PO SCH ×3 (08:35→21:12)
[2023-01-08] MEDS: lamoTRIgine 100 MG TAB PO SCH ×2 (08:36→21:10)
[2023-01-08] MEDS: OMEGA-3 (PURIFIED FISH OIL) 1 GM CAP PO SCH ×2 (08:36→21:13)
[2023-01-08] MEDS: PANTOprazole 40 MG TAB PO SCH ×2 (08:36→21:06)
[2023-01-08] MEDS: ROFLUMILAST 500 MCG TAB PO SCH (08:36)
[2023-01-08] MEDS: buPROPion SR 150 MG TABCR PO SCH ×2 (08:36→21:11)
[2023-01-08] MEDS: ASCORBIC ACID 500 MG TAB PO SCH (08:37)
[2023-01-08] MEDS: DOCUSATE SODIUM/SENNA 50/8.6MG TAB PO SCH (08:37)
[2023-01-08] MEDS: DOCUSATE SODIUM 100 MG CAP PO SCH ×2 (08:37→21:13)
[2023-01-08] MEDS: DULoxetine HCL 30 MG CAP PO SCH (08:37)
[2023-01-08] MEDS: MULTIVITAMIN TAB PO SCH (08:37)
[2023-01-08] MEDS: CYANOCOBALAMIN (B-12) 500 MCG TABLET PO SCH (08:37)
[2023-01-08] MEDS: CHOLECALCIFEROL 1,000 UNITS 25 MCG TAB PO SCH (08:37)
[2023-01-08] MEDS: RANOLAZINE 500 MG ER TAB PO SCH ×2 (08:37→21:12)
[2023-01-08] MEDS: FLUTICASONE/VILANTEROL 200/25MCG 14 PUFFS/INHALER INH SCH (08:38)
[2023-01-08] MEDS: ENOXAPARIN INJ 30 MG/0.3 ML SYR SQ SCH ×2 (08:38→21:06)
[2023-01-08] MEDS: POLYETHYLENE (MIRALAX) 17 GM PACK PO SCH ×2 (08:39→21:14)
[2023-01-08] MEDS: NICOTINE 14 MG/24 HR PATCH TD SCH (08:39)
[2023-01-08] MEDS: FAMOTIDINE 20 MG in SYRINGE 3 ML IV SCH (09:30)
--- NOTE | 2023-01-08 10:17 | Orthopedic Progress Note ---
Date of Service January 08, 2023 Assessment & Plan (1) S/P total knee arthroplasty: Plan: POD #4 - Right TKA with Dr. Snyder WBAT RLE with walker PT/OT today may need to be transitioned to SNF/rehabilitation dependent on response to therapies Pain medication as prescribed upon d/c will need oxycodone 5mg sent to be used for post op pain control Ice to the right knee PRN Appreciate Hospitalist assistance with dizziness/SOB, much improved today Lovenox for DVT prophylaxis. She will transition to Eliquis 2.5 BID x6 weeks upon d/c. Will need prescription sent Dressing was not changed today, this in clean and intact. Patient had received 1 Unit PRBC 01/06/2023, Hgb stable Will monitor response to PT and if medically stable d/c to rehab/SNF once bed available, at this point not likely until Tuesday. Did also discuss possibility d/c home with home services if able to make arrangements as patient was in discussion with her children, but she is still unsure about going home. Admission and Anticipated Discharge Date Admission Date: January 06, 2023 Subjective Feeling better Review of Systems Review of Systems: All systems reviewed & are unremarkable except as noted in HPI & below Physical Exam Physical Exam: RLE: Dressing clean, dry, intact. Calf soft and non-tender. GS, Tib ant , & EHL 5/5. Sensation to light touch intact. BCR < 2 sec. Results & Data Vital Signs (Past 12 Hours) Vital Signs Temp Pulse Resp BP Pulse Ox O2 Del Method O2 Flow Rate 01/08/23 08:30 Nasal Cannula 2 01/08/23 07:11 37.4 C 90 18 128/77 93 Room Air Laboratory Results Laboratory Results WBC 3.98 K/ul (4.8-10.8) L 01/08/23 05:40 RBC 2.96 M/uL (4.20-5.40) L 01/08/23 05:40 Hgb 8.5 g/dl (12.0-16.0) L 01/08/23 05:40 Hct 26.3 % (37.0-47.0) L 01/08/23 05:40 MCV 88.9 fL (80.0-100.0) 01/08/23 05:40 MCH 28.7 pg (25.0-34.0) 01/08/23 05:40 MCHC 32.3 g/dL (32.0-36.0) 01/08/23 05:40 RDW Std Deviation 50.2 fL (36.4-46.3) H 01/08/23 05:40 RDW Coeff of Elicia 15.8 % (11.5-14.5) H 01/08/23 05:40 Plt Count 162 K/uL (130-400) 01/08/23 05:40 MPV 9.9 fL (9.4-12.4) 01/08/23 05:40 Immature Gran % (Auto) 0.6 % 01/07/23 06:23 Neut % (Auto) 64.3 % 01/07/23 06:23 Lymph % (Auto) 24.0 % 01/07/23 06:23 Kerr % (Auto) 7.0 % 01/07/23 06:23 Eos % (Auto) 3.7 % 01/07/23 06:23 Baso % (Auto) 0.4 % 01/07/23 06:23 Neut # (Auto) 3.14 K/uL (1.40-6.50) 01/07/23 06:23 Lymph # (Auto) 1.17 K/uL (1.2-3.4) L 01/07/23 06:23 Kerr # (Auto) 0.34 K/uL (0.11-0.59) 01/07/23 06:23 Eos # (Auto) 0.18 K/uL (0-0.50) 01/07/23 06:23 Baso # (Auto) 0.02 K/uL (0-0.2) 01/07/23 06:23 Immature Gran # (Auto) 0.03 K/uL (0.01-0.20) 01/07/23 06:23 Tear Drop Cells Occasional 01/06/23 10:17 Ovalocytes 1+ 01/06/23 10:17 Sodium 141 mmol/L (136-145) 01/08/23 05:40 Potassium 4.2 mmol/L (3.5-5.1) 01/08/23 05:40 Chloride 105 mmol/L (98-107) 01/08/23 05:40 Carbon Dioxide 31 mmol/L (21-32) 01/08/23 05:40 Anion Gap 5 (3-11) 01/08/23 05:40 BUN 15 mg/dl (6-23) 01/08/23 05:40 Creatinine 0.89 mg/dl (0.6-1.2) 01/08/23 05:40 Est Cr Clr Drug Dosing 63.0 ml/min 01/08/23 05:40 Est GFR ( Amer) 80.5 ml/min 01/08/23 05:40 Est GFR (Non-Af Amer) 69.5 ml/min 01/08/23 05:40 BUN/Creatinine Ratio 16.9 (10-20) 01/08/23 05:40 Glucose 90 mg/dl (70-99(Fasting)) 01/08/23 05:40 POC Glucose 113 mg/dl (70-99) H 01/07/23 12:08 Calcium 8.9 mg/dl (8.6-10.3) 01/08/23 05:40 Magnesium 2.0 mg/dl (1.7-2.4) 01/05/23 06:32 Iron 40 mcg/dl (35-150) 01/05/23 06:32 TIBC 314 mcg/dl (250-450) 01/05/23 06:32 Unsaturated IBC 274 mcg/dl (155-355) 01/05/23 06:32 Transferrin % Sat 13 % (15-50) L 01/05/23 06:32 Ferritin 20.2 ng/ml (8-388) 01/05/23 06:32 Urine Color Yellow 01/06/23 14:38 Urine Appearance Clear (Clear) 01/06/23 14:38 Urine pH 6.0 (4.5-7.5) 01/06/23 14:38 Ur Specific [place] 1.019 (1.000-1.030) 01/06/23 14:38 Urine Protein Negative (Negative) 01/06/23 14:38 Urine Glucose (UA) Negative (Negative) 01/06/23 14:38 Urine Ketones Trace (Negative) H 01/06/23 14:38 Urine Blood Negative (Negative) 01/06/23 14:38 Urine Nitrite Negative (Negative) 01/06/23 14:38 Urine Bilirubin Negative (Negative) 01/06/23 14:38 Urine Urobilinogen Negative (Negative) 01/06/23 14:38 Ur Leukocyte Esterase Negative (Negative) 01/06/23 14:38 SARS-CoV-2, RNA, NAAT NEGATIVE (NEGATIVE) 01/04/23 Unknown Blood Type A Positive 01/06/23 06:12 Antibody Screen NEGATIVE 01/06/23 06:12 Crossmatch See Detail 01/06/23 06:12 Impressions Knee X-Ray 01/04/23 12:03 XR knee RT 1 or 2V routine CLINICAL HISTORY: Postoperative evaluation. COMPARISON: Leg length study December 20, 2022. Right knee radiographs October 11, 2022. FINDINGS: Alignment of the total right knee arthroplasty is anatomic. There is no periprosthetic fracture or unexpected radiopaque foreign body. There are skin angie. IMPRESSION: Expected findings following total right knee arthroplasty. ACT 112: Negative or not required by law. Electronically signed by: Jose Wakefield M.D. 01/04/2023 1:02 PM Chest X-Ray 01/07/23 07:00 XR chest 1V portable HISTORY: Hypoxia. COMPARISON: Chest 01/05/2023. FINDINGS: No pneumothorax. No pleural effusions. The cardiac silhouette is normal in size. There are poststernotomy changes and calcifications within the aortic knob. No focal lung consolidations to suggest a pneumonia. No evidence for pulmonary edema. IMPRESSION: No significant change compared to the prior study. No acute process. ACT 112: Negative or not required by law. Electronically signed by: Piyush Toscano M.D. 01/07/2023 7:51 AM
[2023-01-08] MEDS: ASPIRIN 81 MG ECTAB PO SCH (21:08)
[2023-01-08] MEDS: ATORVASTATIN 40 MG TAB PO SCH (21:09)
[2023-01-08] MEDS: QUEtiapine FUMARATE 300 MG TABLET PO SCH (21:09)
[2023-01-08] MEDS: MELATONIN 3 MG TAB PO SCH (21:10)
[2023-01-08] MEDS: MAGNESIUM OXIDE 400 MG TAB PO SCH (21:12)
[2023-01-08] MEDS: VERAPAMIL HCL 180 MG TABCR PO SCH (21:13)
[2023-01-09] MEDS: oxyCODONE HCL IR 5 MG TAB (IMMEDIATE RELEASE) PO PRN ×2 (05:52→21:10)
[2023-01-09] MEDS: ACETAMINOPHEN 500 MG TAB PO SCH ×3 (05:52→21:08)
[2023-01-09 05:53] LABS: Hemoglobin 8.6 g/dl (12.0-16.0); Mean Corpuscular Hemoglobin 28.8 pg (25.0-34.0); Mean Corpuscular Hgb Conc 33.1 g/dL (32.0-36.0); Mean Platelet Volume 9.5 fL (9.4-12.4); Platelet Count 189 K/uL (130-400); RDW Coefficient of Variation 15.7 % (11.5-14.5); RDW Standard Deviation 48.8 fL (36.4-46.3); Red Blood Count 2.99 M/uL (4.20-5.40); White Blood Count 4.09 K/ul (4.8-10.8)
[2023-01-09] MEDS: GABAPENTIN 600 MG TAB PO SCH ×3 (08:18→21:11)
[2023-01-09] MEDS: OMEGA-3 (PURIFIED FISH OIL) 1 GM CAP PO SCH ×2 (08:18→21:12)
[2023-01-09] MEDS: buPROPion SR 150 MG TABCR PO SCH ×2 (08:19→21:14)
[2023-01-09] MEDS: PANTOprazole 40 MG TAB PO SCH ×2 (08:19→21:12)
[2023-01-09] MEDS: busPIRone 5 MG TAB PO SCH ×2 (08:19→21:13)
[2023-01-09] MEDS: lamoTRIgine 100 MG TAB PO SCH ×2 (08:19→21:13)
[2023-01-09] MEDS: ROFLUMILAST 500 MCG TAB PO SCH (08:19)
[2023-01-09] MEDS: RANOLAZINE 500 MG ER TAB PO SCH ×2 (08:19→21:13)
[2023-01-09] MEDS: CHOLECALCIFEROL 1,000 UNITS 25 MCG TAB PO SCH (08:19)
[2023-01-09] MEDS: MULTIVITAMIN TAB PO SCH (08:19)
[2023-01-09] MEDS: POLYETHYLENE (MIRALAX) 17 GM PACK PO SCH ×2 (08:20→21:11)
[2023-01-09] MEDS: ASCORBIC ACID 500 MG TAB PO SCH (08:20)
[2023-01-09] MEDS: DOCUSATE SODIUM 100 MG CAP PO SCH ×2 (08:20→21:11)
[2023-01-09] MEDS: DULoxetine HCL 30 MG CAP PO SCH (08:20)
[2023-01-09] MEDS: CYANOCOBALAMIN (B-12) 500 MCG TABLET PO SCH (08:20)
[2023-01-09] MEDS: DOCUSATE SODIUM/SENNA 50/8.6MG TAB PO SCH (08:20)
[2023-01-09] MEDS: ENOXAPARIN INJ 30 MG/0.3 ML SYR SQ SCH ×2 (08:21→21:12)
[2023-01-09] MEDS: NICOTINE 14 MG/24 HR PATCH TD SCH (08:21)
[2023-01-09] MEDS: FLUTICASONE/VILANTEROL 200/25MCG 14 PUFFS/INHALER INH SCH (08:21)
--- NOTE | 2023-01-09 08:26 | Hospitalist Progress Note ---
Date of Service January 09, 2023 Assessment & Plan (1) S/P total knee arthroplasty: Plan: POD#5 s/p Cemented right total knee arthroplasty with preservation of the [place] patella with Dr Snyder. EBL 20cc WBC wnl, afebrile s/p 1u PRBC for hx 7.3, held further NSAIDs. Also was given >1600cc IVF post-op Hgb stable on repeat 8.3--> 8.5 and was given 500cc NSS bolus for + orthostatics/dizziness AM 6/ and repeat stable at 8.6. One time dose Venofer, [id number]/trans%sat low Held Gabapentin/PM baclofen, instructed to limit oxycodone to 5mg prn (she has only gotten 5mg last two administrations since afternoon / and pain seems to be stable) --> resumed gabapentin/baclofen to prevent withdrawal Intermittent O2 use, suspect w/ COPD/smoking she runs upper 80s at baseline Aggressive bowel regimen --> +BM since increased and would continue Lovenox SQ for DVT and planning low dose eliquis at discharge PT/OT -- patient wanting rehab, CM to follow (2) Esophageal dysphagia: Plan: w/ recent EGD as above -- PPI increased to BID as should have been taking with recent EGD Pepcid daily. NO FURTHER NSAIDs -- had gotten 3 of 4 doses Toradol post op No issues w/ swallowing reported at present, tolerating diet (3) CAD, multiple vessel: Plan: HxCAD s/p Inferior [place] s/p CABG x 4 Vessels 08/20/2010, s/p Mid Left Circumflex Stent 2009, Carotid Artery Stenoses, Cerebrovascular Disease, Hypertension, Dyslipidemia cleared by cards pre-op, had been having some symptoms concerning for ischemia but had wanted to undergo surgery as cath delay surgery ~6 months and they added ranexa --> she is CP free currently (small couple second episode following orange this AM, reported chronic for her) Had Lexiscan 12/08/22 with fixed defect and mild amount of demetrius-infarct ischemia Remains on ASA, lipitor, ranexa, verapamil EKG w/ CP -- EKG appears unchanged from prior, and no recurrence WILL NEED OUTPT f/u at d/c. Would check trop w/ EKG if complaints of CP again but appears possibly diet related and NO FURTHER CP REPORTED (4) GERD (gastroesophageal reflux disease): Plan: continue PPI bid, pepcid daily -- recent EGD w/ esophagitis w/ Dr Case (5) On home oxygen therapy: Plan: 2L prn at home, mostly using at night, prior smoking history and suspect hangs around upper 80s at baseline CXR w/o acute process, no change on repeat (6) COPD (chronic obstructive pulmonary disease): Plan: continue roflumilast, Symbicort (or hospital equivalent)/albuterol nebs o2 as needed, titrate as able Plan Thank you for allowing hospitalist service to participate in the care of Ms Monroy. Hospitalist service will sign off at this time. Please call with any questions/concerns. Admission and Anticipated Discharge Date Admission Date: January 06, 2023 Supervising Physician Co-Signing Physician Notes PA Supervision Note: I did not personally see or examine the patient today, but I verified all mcclure points of YVES Peña's assessment and plan with the following exceptions/additions: None Subjective Patient evaluated this morning. Feeling much better. Pain controlled. No further lightheaded/dizziness. Venofer x 1 to boost stores/hgb stable. No bleeding reported. Confirming she wants to go to rehab. No chest pain or shortness of breath reported. Continues intermittent oxygen use as needed w/ 2L, lungs clear on exam. Eating/drinking and moving her bowels multiple times yesterday, continuing to pass gas today and no abdominal pain/nausea or vomiting reported. Physical Exam Physical Exam: General: WD/WN female, improvement in energy/alertness HEENT: head normocephalic, atraumatic, mmm, trachea midline Resp: CTA, no w/c/r, occasional NC use2L, no tachypnea, able to talk in complete sentences GI: +BS, soft/NT : no manriquez MSK/Neuro: dressing to RIGHT knee c/d/i, ice pack in place, toes mobile, slight edema on the right compared to left almost resolved, compartments soft, calves NONTENDER, pulses palpable no focal deficit, no slurred speech Psych: AOx3, cooperative Results & Data Results & Data Vital Signs (Past 12 Hours) Vital Signs Temp Pulse Pulse Resp BP BP Pulse Ox 01/09/23 07:38 01/09/23 07:30 37.1 C 76 18 122/67 94 01/09/23 05:31 93 01/09/23 05:30 36.5 C 67 16 138/78 88 L 01/08/23 21:31 O2 Del Method O2 Flow Rate 01/09/23 07:38 Nasal Cannula 2 01/09/23 07:30 Nasal Cannula 2 01/09/23 05:31 Nasal Cannula 2 01/09/23 05:30 Room Air 01/08/23 21:31 Nasal Cannula 2 Laboratory Results 01/09/23 01/09/23 01/08/23 Range/Units 07:55 05:35 20:50 WBC 4.09 L (4.8-10.8) K/ul RBC 2.99 L (4.20-5.40) M/uL Hgb 8.6 L (12.0-16.0) g/dl Hct 26.0 L (37.0-47.0) % MCV 87.0 (80.0-100.0) fL MCH 28.8 (25.0-34.0) pg MCHC 33.1 (32.0-36.0) g/dL RDW Std Deviation 48.8 H (36.4-46.3) fL RDW Coeff of Elicia 15.7 H (11.5-14.5) % Plt Count 189 (130-400) K/uL MPV 9.5 (9.4-12.4) fL POC Glucose 120 H 117 H (70-99) mg/dl PG Care Time/CCT Total # of Minutes Spent Total Time Spent with Patient: Total time spent is greater than 50% in coordination of care (as documented) at patient's floor/unit and/or counseling patient: Coding Level of Care Code 06757 SUB INP/OBS CARE 2/35MIN Diagnoses S/P total knee arthroplasty Z96.659 Esophageal dysphagia R13.19 CAD, multiple vessel I25.10 GERD (gastroesophageal reflux disease) K21.9 On home oxygen therapy Z99.81 COPD (chronic obstructive pulmonary disease) J44.9
[2023-01-09] MEDS: FAMOTIDINE 20 MG in SYRINGE 3 ML IV SCH (08:28)
[2023-01-09] MEDS ORDERED: IRON SUCROSE 300 MG in SODIUM CHLORIDE 0.9% 250 ML IV ONE (09:00)
--- NOTE | 2023-01-09 12:06 | Orthopedic Progress Note ---
Date of Service January 09, 2023 Assessment & Plan (1) S/P total knee arthroplasty: Plan: POD #5 - Right TKA with Dr. Snyder WBAT RLE with walker PT/OT today may need to be transitioned to SNF/rehabilitation dependent on response to therapies Pain medication as prescribed upon d/c will need oxycodone 5mg sent to be used for post op pain control Ice to the right knee PRN Appreciate Hospitalist assistance with dizziness/SOB, much improved today Lovenox for DVT prophylaxis. She will transition to Eliquis 2.5 BID x6 weeks upon d/c. Will need prescription sent Dressing was not changed today, this in clean and intact. Patient had received 1 Unit PRBC 01/06/2023, Hgb stable Receiving Fe this am Will monitor response to PT and if medically stable d/c to rehab/SNF once bed available, at this point not likely until Tuesday. Patient is unsure about going home. Admission and Anticipated Discharge Date Admission Date: January 06, 2023 Subjective Feeling better Physical Exam Physical Exam: RLE: Dressing clean, dry, intact. Calf soft and non-tender. GS, Tib ant , & EHL 5/5. Sensation to light touch intact. BCR < 2 sec. Receiving Fe Results & Data Vital Signs (Past 12 Hours) Vital Signs Temp Pulse Pulse Resp BP BP Pulse Ox 01/09/23 07:38 01/09/23 07:30 37.1 C 76 18 122/67 94 01/09/23 05:31 93 01/09/23 05:30 36.5 C 67 16 138/78 88 L O2 Del Method O2 Flow Rate 01/09/23 07:38 Nasal Cannula 2 01/09/23 07:30 Nasal Cannula 2 01/09/23 05:31 Nasal Cannula 2 01/09/23 05:30 Room Air Laboratory Results 01/09/23 01/09/23 01/08/23 Range/Units 07:55 05:35 20:50 WBC 4.09 L (4.8-10.8) K/ul RBC 2.99 L (4.20-5.40) M/uL Hgb 8.6 L (12.0-16.0) g/dl Hct 26.0 L (37.0-47.0) % MCV 87.0 (80.0-100.0) fL MCH 28.8 (25.0-34.0) pg MCHC 33.1 (32.0-36.0) g/dL RDW Std Deviation 48.8 H (36.4-46.3) fL RDW Coeff of Elicia 15.7 H (11.5-14.5) % Plt Count 189 (130-400) K/uL MPV 9.5 (9.4-12.4) fL POC Glucose 120 H 117 H (70-99) mg/dl
[2023-01-09] MEDS: QUEtiapine FUMARATE 300 MG TABLET PO SCH (21:07)
[2023-01-09] MEDS: VERAPAMIL HCL 180 MG TABCR PO SCH (21:11)
[2023-01-09] MEDS: ASPIRIN 81 MG ECTAB PO SCH (21:13)
[2023-01-09] MEDS: ATORVASTATIN 40 MG TAB PO SCH (21:13)
[2023-01-09] MEDS: MELATONIN 3 MG TAB PO SCH (21:14)
[2023-01-09] MEDS: MAGNESIUM OXIDE 400 MG TAB PO SCH (21:14)
[2023-01-10] MEDS: ACETAMINOPHEN 500 MG TAB PO SCH ×3 (05:46→21:02)
[2023-01-10] MEDS: oxyCODONE HCL IR 5 MG TAB (IMMEDIATE RELEASE) PO PRN (07:25)
[2023-01-10] MEDS: busPIRone 5 MG TAB PO SCH ×2 (08:11→20:36)
[2023-01-10] MEDS: DOCUSATE SODIUM/SENNA 50/8.6MG TAB PO SCH (08:11)
[2023-01-10] MEDS: PANTOprazole 40 MG TAB PO SCH ×2 (08:11→20:32)
[2023-01-10] MEDS: DOCUSATE SODIUM 100 MG CAP PO SCH ×2 (08:12→20:31)
[2023-01-10] MEDS: CHOLECALCIFEROL 1,000 UNITS 25 MCG TAB PO SCH (08:12)
[2023-01-10] MEDS: ASCORBIC ACID 500 MG TAB PO SCH (08:12)
[2023-01-10] MEDS: DULoxetine HCL 30 MG CAP PO SCH (08:12)
[2023-01-10] MEDS: MULTIVITAMIN TAB PO SCH (08:13)
[2023-01-10] MEDS: buPROPion SR 150 MG TABCR PO SCH ×2 (08:13→20:34)
[2023-01-10] MEDS: lamoTRIgine 100 MG TAB PO SCH ×2 (08:14→20:34)
[2023-01-10] MEDS: FLUTICASONE/VILANTEROL 200/25MCG 14 PUFFS/INHALER INH SCH (08:14)
[2023-01-10] MEDS: GABAPENTIN 600 MG TAB PO SCH ×3 (08:14→20:37)
[2023-01-10] MEDS: ENOXAPARIN INJ 30 MG/0.3 ML SYR SQ SCH (08:15)
[2023-01-10] MEDS: OMEGA-3 (PURIFIED FISH OIL) 1 GM CAP PO SCH ×2 (08:15→20:37)
[2023-01-10] MEDS: CYANOCOBALAMIN (B-12) 500 MCG TABLET PO SCH (08:15)
[2023-01-10] MEDS: NICOTINE 14 MG/24 HR PATCH TD SCH (08:16)
[2023-01-10] MEDS: POLYETHYLENE (MIRALAX) 17 GM PACK PO SCH ×2 (08:16→20:38)
[2023-01-10] MEDS: RANOLAZINE 500 MG ER TAB PO SCH ×2 (08:17→20:32)
[2023-01-10] MEDS: ROFLUMILAST 500 MCG TAB PO SCH (08:17)
[2023-01-10] MEDS: FAMOTIDINE 20 MG in SYRINGE 3 ML IV SCH (08:24)
--- NOTE | 2023-01-10 09:17 | Orthopedic Progress Note ---
Date of Service January 10, 2023 Assessment & Plan (1) S/P total knee arthroplasty: Plan: Patient was seen and examined in her room. Anticipate transfer to either [facility] or [facility]. Awaiting insurance approval. Continue PT/OT. Weight-bear as tolerated. Her dressings were removed today. ABDs were placed and her BRENDA hose was reapplied. Keep the wound clean and dry. Prescriptions for her Eliquis and oxycodone will need to be sent prior to discharge once her final destination has been established. Follow-up in the office for staple movable has already been scheduled. She is aware of her appointment. Care plan will be discussed with Dr. Snyder later today. Admission and Anticipated Discharge Date Admission Date: January 06, 2023 Subjective This 63-year-old female is seen today in her room. She is postop day 6 from right total knee arthroplasty. She states she is doing okay. She has having some difficulty with doing a straight leg raise. She states she did have some pain overnight. No numbness or tingling. She is hoping to go to [facility] for rehab. She realizes that going home is not in her best interest. No new injury. No other complaints. She is currently eating her breakfast. She states today [birth year] her birthday. Physical Exam Physical Exam: General: Well-developed, well-nourished, middle-aged female, in no acute distress. Sitting in bed. Alert and oriented. Skin: Warm and dry with good turgor. Postsurgical dressings are disheveled and compacted around her lower leg. Upon removal, she has expected postoperative ecchymosis throughout the leg. No significant intra-articular effusion. No redness or warmth. Karla are in place. Wound edges are well approximated. No drainage. Musculoskeletal: The patient has intact motor function of her right hip, knee, and ankle. She is having some difficulty with straight leg raise but is able to perform it with minimal assistance. She is able to flex the knee. Neurologic: Gross sensation is intact across the right leg by soft touch. Peripheral pulses are 2+. Results & Data Vital Signs (Past 12 Hours) Vital Signs Temp Pulse Resp BP Pulse Ox O2 Del Method O2 Flow Rate 01/10/23 07:52 37.0 C 68 16 139/75 95 Nasal Cannula 2 01/09/23 22:46 Nasal Cannula 2
[2023-01-10 09:49] LABS: Hemoglobin 9.3 g/dl (12.0-16.0); Mean Corpuscular Hemoglobin 28.8 pg (25.0-34.0); Mean Corpuscular Hgb Conc 32.1 g/dL (32.0-36.0); Mean Corpuscular Volume 89.8 fL (80.0-100.0); Mean Platelet Volume 9.4 fL (9.4-12.4); Platelet Count 222 K/uL (130-400); RDW Coefficient of Variation 16.6 % (11.5-14.5); RDW Standard Deviation 51.8 fL (36.4-46.3); Red Blood Count 3.23 M/uL (4.20-5.40)
--- NOTE | 2023-01-10 10:06 | Progress Notes ---
DATE OF SERVICE: 01/10/2023. The patient is sitting in the bedside chair. A little bit more pain today, but her symptoms of pain are well controlled and expected. She denies any problems with going to the bathroom. She has been eating well and breathing well. She reports getting up and going into the bathroom to get cleaned up . Her hemoglobin is stable, a little bit above 8. She has been afebrile. Her vital signs are stable. Distal neurovascular function intact. There is some bruising in her thigh and calf area. Swelling i s minimal. She has minimal swelling within the knee joint itself. Positive skin wrinkles. The inci geovanna is benign without any significant drainage. She is status post a total knee replacement on the right knee. She has chronic obstructive pulmonary disease. PLAN: We will transition her over to the [facility]. Await placement at [facility] versus acute [facility] are rehab. I talked with her regarding wound care, elevation, and follow up. Job ID: [id number]
[2023-01-10] MEDS: traMADol HCL 50 MG TABLET PO PRN (11:46)
[2023-01-10] MEDS: MELATONIN 3 MG TAB PO SCH (20:32)
[2023-01-10] MEDS: ASPIRIN 81 MG ECTAB PO SCH (20:34)
[2023-01-10] MEDS: MAGNESIUM OXIDE 400 MG TAB PO SCH (20:35)
[2023-01-10] MEDS: QUEtiapine FUMARATE 300 MG TABLET PO SCH (20:35)
[2023-01-10] MEDS: ATORVASTATIN 40 MG TAB PO SCH (20:35)
[2023-01-10] MEDS: VERAPAMIL HCL 180 MG TABCR PO SCH (20:37)
[2023-01-10] MEDS: APIXABAN 2.5 MG TAB PO SCH (20:37)
[2023-01-11] MEDS: ACETAMINOPHEN 500 MG TAB PO SCH (05:10)
[2023-01-11] MEDS: oxyCODONE HCL IR 5 MG TAB (IMMEDIATE RELEASE) PO PRN (05:12)
[2023-01-11] MEDS: traMADol HCL 50 MG TABLET PO PRN (07:33)
[2023-01-11] MEDS: MULTIVITAMIN TAB PO SCH (08:22)
[2023-01-11] MEDS: FLUTICASONE/VILANTEROL 200/25MCG 14 PUFFS/INHALER INH SCH (08:22)
[2023-01-11] MEDS: CHOLECALCIFEROL 1,000 UNITS 25 MCG TAB PO SCH (08:22)
[2023-01-11] MEDS: GABAPENTIN 600 MG TAB PO SCH (08:23)
[2023-01-11] MEDS: ASCORBIC ACID 500 MG TAB PO SCH (08:23)
[2023-01-11] MEDS: busPIRone 5 MG TAB PO SCH (08:23)
[2023-01-11] MEDS: OMEGA-3 (PURIFIED FISH OIL) 1 GM CAP PO SCH (08:23)
[2023-01-11] MEDS: buPROPion SR 150 MG TABCR PO SCH (08:24)
[2023-01-11] MEDS: PANTOprazole 40 MG TAB PO SCH (08:24)
[2023-01-11] MEDS: CYANOCOBALAMIN (B-12) 500 MCG TABLET PO SCH (08:24)
[2023-01-11] MEDS: DULoxetine HCL 30 MG CAP PO SCH (08:24)
[2023-01-11] MEDS: DOCUSATE SODIUM/SENNA 50/8.6MG TAB PO SCH (08:24)
[2023-01-11] MEDS: APIXABAN 2.5 MG TAB PO SCH (08:24)
[2023-01-11] MEDS: ROFLUMILAST 500 MCG TAB PO SCH (08:24)
[2023-01-11] MEDS: RANOLAZINE 500 MG ER TAB PO SCH (08:25)
[2023-01-11] MEDS: lamoTRIgine 100 MG TAB PO SCH (08:25)
[2023-01-11] MEDS: NICOTINE 14 MG/24 HR PATCH TD SCH (08:25)
[2023-01-11] MEDS: POLYETHYLENE (MIRALAX) 17 GM PACK PO SCH (08:26)
[2023-01-11] MEDS: DOCUSATE SODIUM 100 MG CAP PO SCH (08:26)
[2023-01-11] MEDS: FAMOTIDINE 20 MG in SYRINGE 3 ML IV SCH (08:33)
--- NOTE | 2023-01-11 09:31 | Orthopedic Progress Note ---
Date of Service January 11, 2023 Assessment & Plan (1) S/P total knee arthroplasty: Plan: Patient is doing well. She is feeling better overall. We discussed her expectations of pain/pain control. It was reinforced that she should expect some pain due to having a major procedure done, however this should continue to improve as she is progressing through rehablititation. Anticipate transfer to either [facility] or [facility]. Awaiting insurance approval.As of this am [facility] is still pending Continue PT/OT. Weight-bear as tolerated. Keep the wound clean and dry. Prescriptions for her Eliquis and oxycodone will need to be sent prior to discharge once her final destination has been established.She was advised on importance of taking the Eliquis for DVT prophylaxis. Follow-up in the office for staple movable has already been scheduled 01/17 She is aware of her appointment. Present on Admission?: Yes Admission and Anticipated Discharge Date Admission Date: January 06, 2023 Subjective Patient is a 63-year-old female who was seen bedside this AM. She is sitting upright in bedside chair just finishing her breakfast. She is postop day #7 status post a right total knee arthroplasty with Dr. Snyder. She reports she is doing better. She states she feels better overall and feels like she is going in the right direction. She states her pain is about a 5/10 and this seems to be improving and controlled with pain medication. She states therapy is going well still challenging. She denies any drainage or redness around the incision. She denies any dizziness, shortness of breath chest pain or calf pain. She is hoping to be able to transition to rehab today. She offers no concerns. Review of Systems Review of Systems: Please refer to HPI Physical Exam Physical Exam: General: Patient is sitting in bedside chair just finishing breakfast. She is alert and oriented x3 no acute distress. She is pleasant and conversive Integumentary/musculoskeletal: BRENDA hose is in place thigh-high. Dressing is covering the incision. Negative for any soiling. Negative for edema in the right lower extremity. Her calf is soft and nontender. She is able to plantar and dorsiflex ankle. She is able to tolerate knee range of motion approximately --10 degrees extension and can flex the knee to approximately 95 degrees from seated position. Sensaton is intact to light touch. Dorsal pedis pulse 2+. Results & Data Vital Signs (Past 12 Hours) Vital Signs Temp Pulse Resp BP Pulse Ox O2 Del Method 01/11/23 07:23 37.0 C 76 18 105/69 91 Room Air Laboratory Results 01/10/23 Range/Units 09:13 WBC 5.20 (4.8-10.8) K/ul RBC 3.23 L (4.20-5.40) M/uL Hgb 9.3 L (12.0-16.0) g/dl Hct 29.0 L (37.0-47.0) % MCV 89.8 (80.0-100.0) fL MCH 28.8 (25.0-34.0) pg MCHC 32.1 (32.0-36.0) g/dL RDW Std Deviation 51.8 H (36.4-46.3) fL RDW Coeff of Elicia 16.6 H (11.5-14.5) % Plt Count 222 (130-400) K/uL MPV 9.4 (9.4-12.4) fL
== END 2023-01-11 13:29 | disposition home health service (06) | DRG 470 ==
LOC: 3E 05:48 → ASU 05:48

== ENCOUNTER 2023-08-18 15:52 | Inpatient (IN) ==
--- NOTE | 2023-08-18 16:38 | XRay Report ---
XR chest 1V not portable CLINICAL HISTORY: Chest pain, nonspecific. COMPARISON STUDY: Chest radiograph January 07, 2023. Chest CT April 06, 2023. FINDINGS: There are median sternotomy wires and mediastinal surgical clips. Findings within the lumba r spine are incidentally noted. No pneumothorax or pleural effusion is present. Cardiomediastinal cleo houette is stable. Extensive right infrahilar opacity is present. Patchy left basilar opacity is pres ent. There is mild interlobular septal thickening within the right lung. IMPRESSION: 1. Extensive right infrahilar opacity with patchy left lower lung opacities. The findings favor multi focal pneumonia. Radiographic follow-up to ensure resolution is recommended. 2. Asymmetric interstitial thickening within the right lung. This may reflect mild pulmonary edema. ACT 112: Negative or not required by law. Electronically signed by: Jose Wakefield M.D. 08/18/2023 4:37 PM
[2023-08-18 17:33] LABS: Hematocrit (blood only) 35.6 % (37.0-47.0); Hemoglobin 11.4 g/dl (12.0-16.0); Mean Corpuscular Hemoglobin 27.6 pg (25.0-34.0); Mean Corpuscular Volume 86.2 fL (80.0-100.0); Mean Platelet Volume 9.5 fL (9.4-12.4); Platelet Count 315 K/uL (130-400); RDW Coefficient of Variation 14.3 % (11.5-14.5); RDW Standard Deviation 44.9 fL (36.4-46.3); Red Blood Count 4.13 M/uL (4.20-5.40); White Blood Count 8.48 K/ul (4.8-10.8)
[2023-08-18 17:48] LABS: Alanine Aminotransferase 19 U/L (7-52); Albumin Globulin Ratio 1.4 (0.9-2); Albumin Level 4.2 gm/dl (3.4-5.0); Alkaline Phosphatase 68 U/L (34-104); Anion Gap 7 (3-11); Aspartate Aminotransferase 17 U/L (13-39); BUN Creatinine Ratio 15.9 (10-20); Bilirubin,Total 0.8 mg/dl (0.2-1.0); Blood Urea Nitrogen 18 mg/dl (6-23); Carbon Dioxide 29 mmol/L (21-32); Chloride 103 mmol/L (98-107); Est GFR (African American) 59.9 ml/min; Est GFR (Non-African American) 51.7 ml/min; Glucose 153 mg/dl (70-99(Fasting)); Potassium 4.1 mmol/L (3.5-5.1); Sodium 139 mmol/L (136-145); Total Protein 7.2 gm/dl (6.0-8.3)
[2023-08-18 18:00] LABS: Basophils # (auto) 0.02 K/uL (0.00-0.20); Basophils % (auto) 0.2 %; Immature Granulocytes # (auto) 0.03 K/uL (0.01-0.20); Immature Granulocytes % (auto) 0.4 %; Lymphocytes # (auto) 1.14 K/uL (1.20-3.40); Lymphocytes % (auto) 13.4 %; Microcytosis Present; Monocytes # (auto) 0.65 K/uL (0.11-0.59); Monocytes % (auto) 7.7 %; Neutrophils # (auto) 6.64 K/uL (1.40-6.50); Neutrophils % (auto) 78.3 %; Ovalocytes 1+; Polychromasia 1+; Tear Drop Cells 1+; Toxic Vacuolation 1+
[2023-08-18 18:04] LABS: Partial Thromboplastin Time 28 Seconds (21-31); Prothrombin Time 10.8 Seconds (9.0-12.0)
[2023-08-18] MEDS ORDERED: methylPREDNISolone 125 MG/2 ML VIAL IV STA (18:14)
[2023-08-18] MEDS ORDERED: diphenhydrAMINE 50 MG/ML VIAL IV STA (18:14)
[2023-08-18 18:17] LABS: Troponin I High Sensitivity 329.7 pg/ml (0-14)
[2023-08-18] MEDS ORDERED: ASPIRIN CHEW 324 MG PO STA (18:20)
[2023-08-18] MEDS ORDERED: OPTIRAY 320 125ml IV ONE (18:33)
--- NOTE | 2023-08-18 18:38 | Emergency Department Note ---
Impression & Plan Elevated troponin ADMIT ED Provider Note HPI: History obtained from patient and daughter at the bedside The patient is a 63-year-old female with history of COPD, on 2 L nasal cannula oxygen at baseline, who presents emergency department with chief complaint of shortness of breath. Patient states that 2 weeks ago she had a positive home COVID test. Patient states that today she was feeling more short of breath than usual, she contacted her daughter who noted that when she got there the patient seemed short of breath but her oxygen tubing was "kinked" and she fixed this and then increase her oxygen to 3 L which seemed to help with her shortness of breath. Patient states she is also had some vague chest discomfort that has been ongoing throughout the day today. Patient denies any exertional component to this. Patient denies any recent fevers, states she has had a cough. On arrival here to the ED the patient is saturating well on 3 L nasal cannula oxygen at 96%, she is afebrile, she was noted to be tachypneic on arrival however by the time I am assessing the patient this is improved. Blood pressure stable on arrival at 128/68. ROS: - Per HPI Differential Diagnosis: Viral upper respiratory infection with hypoxia, COPD exacerbation, acute coronary syndrome, pulmonary embolism, pneumonia, CHF exacerbation with hypoxia, pulmonary edema, amongst other potential pathologies. *Outpatient medications and allergy history reviewed. PE: General: Alert HEENT: Normocephalic, trachea midline Eyes: Extraocular eye movement is intact, no scleral erythema Pulmonary: Diminished bilateral breath sounds with mild expiratory wheezing bilaterally Cardio: Regular rate and rhythm GI: Abdomen is soft to palpation : No suprapubic tenderness MSK: No evidence of trauma or malformation of the extremities, no edema Skin: No evidence of rash Neuro: Alert, no focal deficits Psychiatric: Cooperative INDEPENDENT INTERPRETATIONS: cardiac monitor: (As interpreted by myself): - An order was placed for continuous cardiac monitoring - Patient was noted to be in sinus rhythm with a rate of 75 EKG: (As interpreted by myself): Rate: 104 Rhythm: Sinus tachycardia Intervals: Within normal limits ST changes: No ST elevation, mild ST depression noted in leads V2 through V5 Time: 1643 Chest x-ray: (As interpreted by myself): -Pattern of multifocal pneumonia Interventions provided in ED: -DuoNeb breathing treatment, IV Solu-Medrol, IV Benadryl, IV cefepime, IV azithromycin, aspirin Medical Decision Making: IV was established and lab work obtained, patient was placed on senior procurement specialist. Lab work shows no leukocytosis, hemoglobin is stable at 11.4. Platelet count is normal. Venous blood gas shows evidence of mild acidosis at 7.35, pCO2 is slightly elevated at 55, patient was given DuoNeb breathing treatment and IV Solu-Medrol here in the ED. CMP does not show any critical findings, no evidence of acute kidney injury, procalcitonin is noted to be elevated at 6.77. Chest x-ray suggestive of multifocal pneumonia. Given the patient's complaint of chest discomfort with shortness of breath, CT angiography of the chest was obtained that does not show any evidence of pulmonary embolism. Does redemonstrate evidence of pneumonia. Blood cultures were obtained and the patient was started on IV cefepime and IV azithromycin over concern for pneumonia viral panel testing was obtained here in the ED and is negative. Troponin is elevated at 329, on my reassessment patient states she does not have any chest pain. She was given aspirin here in the ED. given the patient is currently chest pain-free, will defer heparin drip. [facility] hospitalist service was consulted for admission and the patient was placed for admission in stable condition. Consultants/Discussions held with other healthcare providers: -Hospitalist, Dr. Adkins Disposition discussion held by myself with: -Patient Diagnosis: 1. Elevated troponin, acute 2. Multifocal pneumonia, acute 3. Dyspnea, acute 4. COPD exacerbation with hypercapnia, acute 5. Elevated procalcitonin level, acute Disposition: Admission Gerry Valle DO Emergency Medicine Past Med/Surg History Medical History (Updated 08/18/23 @ 21:56 by Bridgette Hawley DO) Acute blood loss anemia Esophageal dysphagia Anemia History of home oxygen therapy 2L O2 PRN History of COVID-19 08/2022 (home test)- cough, COPD flare > "resolved" Bilateral carotid artery disease follows with Dr. Joya > 70% R/L ICA stenosis per 04/2022 carotid doppler, unchanged compared to 06/2021 per report. Repeat imaging in one year recommended per [facility] cardiology IBS (irritable bowel syndrome) Kidney stones No current issues per patient Low back problem PTSD (post-traumatic stress disorder) Follows with psych + counselor Some short-term and long-term memory issues (undetermined if r/t PTSD per patient) Seasonal allergies Sciatica Bilateral lumbar radiculopathy Colon polyp Hx Depression Lymphedema Restless legs syndrome GERD (gastroesophageal reflux disease) Migraine with aura and without status migrainosus, not intractable Radicular pain of lumbosacral region Transient ischemic attack (TIA) Several years ago, Follows with [facility] neuro (Dr. Ordaz) Emphysema of lung Follows with Dr. Gay Heart attack 2009 > stent 2010 > stent Dyslipidemia Benign essential hypertension Coronary artery disease 2010 > stent CABG x4 (2010) 2011 > stent Cauda equina syndrome Per remote records, pt unaware Surgical History History of cardiac cath 2009 > stent 2011 > stent S/P epidural steroid injection caudal epidural steroid injection H/O unilateral salpingectomy History of colonoscopy History of back surgery X6 TOTAL (LUMBAR) History of right knee surgery History of lithotripsy History of ectopic R/T TUBAL History of shoulder surgery RIGHT History of hysterectomy History of section x1 History of total knee replacement RIGHT History of cholecystectomy H/O heart bypass surgery CABG X4 (08/2010) Family History Daughter Atrial septal defect Son Atrial septal defect Sister Crohn's disease Family history of NH (myocardial infarction) Cancer Mother Cervical cancer Father Diabetes Coronary heart disease Cancer Brother Nephroblastoma Cancer Grandmother (Maternal) Diabetes Grandmother (Paternal) Diabetes Other No family history of adverse response to anesthesia No significant family history Social History Smoking Status: Former smoker Tobacco Type: Cigarettes Second Hand Exposure: No; Do You Dip or Chew Tobacco: No; Hx Alcohol Use: No Hx Substance Use: No Preferred Language: Kosovan Communication Ability: Effective Visual Impairment: Limited Hearing Ability: Normal Condenser Winder Required: No Beliefs That Will Affect Care: None marital status: Current Living Situation: Alone current occupational status: disabled Feels Safe at Home: Yes Childhood Exposure to Second-Hand Smoke: Yes Assistive Devices: Oxygen - at Night and Walker Allergies Allergies Allergy/AdvReac Type Severity Reaction Status Date / Time nitrofurantoin Allergy Intermediate HIVES Verified 08/18/23 20:48 senna Allergy Intermediate HIVES Verified 08/18/23 20:48 (FROM X-Prep), TAKES SENOKOT AT HOME Iodinated Contrast Media Allergy Mild RASH Verified 08/18/23 20:48 rizatriptan AdvReac Intermediate NAUSEA AND Verified 08/18/23 20:48 VOMITING sumatriptan AdvReac Intermediate WORSENED Verified 08/18/23 20:48 HEADACHE zolpidem AdvReac Intermediate NIGHTMARES Verified 08/18/23 20:48 Beta-Blockers AdvReac Mild HYPOTENSION Verified 08/18/23 20:48 (Beta-Adrenergic Bloc Home Meds Home Medications Medication Instructions Recorded Confirmed aspirin 81 mg tablet,delayed 81 mg PO HS 07/27/18 08/18/23 release (Rula Low Dose Aspirin) coenzyme Q10 100 mg capsule (Co 200 mg PO HS 07/27/18 08/18/23 Q-10) cyanocobalamin (vitamin B-12) 1,000 mcg PO QAM 07/27/18 08/18/23 1,000 mcg tablet (Vitamin B-12) melatonin 10 mg tablet 10 mg PO HS 07/27/18 08/18/23 multivitamin (One Daily 1 tab PO QAM 07/27/18 08/18/23 Multivitamin tablet) omega 1-czh-knw-fish oil 1,000 mg 1 cap PO BID 07/27/18 08/18/23 (120 mg-180 mg) capsule (Fish Oil) duloxetine 30 mg capsule,delayed 30 mg PO QAM 06/04/19 08/18/23 release (Cymbalta) albuterol sulfate 2.5 mg/3 mL 2.5 mg inhalation Q4H PRN 06/16/19 08/18/23 (0.083 %) solution for nebulization Shortness Of Breath Or Wheezing gabapentin 600 mg tablet 600 mg PO TID 06/16/19 08/18/23 atorvastatin 80 mg tablet 80 mg PO QPM 10/04/19 08/18/23 cholecalciferol (vitamin D3) 25 2,000 unit PO QAM 04/17/20 08/18/23 mcg (1,000 unit) capsule (Vitamin D3) magnesium oxide 400 mg PO HS 10/30/20 08/18/23 ascorbic acid (vitamin C) 500 mg 500 mg PO QAM 11/20/20 08/18/23 tablet (Vitamin C) tramadol 50 mg tablet 100 mg PO Q8H PRN pain 10/01/21 08/18/23 Cbd Gummies 1 dose PO DAILY PRN Pain 11/04/22 08/18/23 buspirone 10 mg tablet 10 mg PO BID 11/04/22 08/18/23 bupropion HCl 150 mg 24 hr tablet, 150 mg PO QAM 08/18/23 08/18/23 extended release ibandronate 150 mg tablet 150 mg PO MONTHLY 08/18/23 08/18/23 lamotrigine 100 mg tablet 150 mg PO QAM 08/18/23 08/18/23 lamotrigine 200 mg tablet 200 mg PO HS 08/18/23 08/18/23 nicotine 7 mg/24 hr daily 1 patch transdermal DAILY 08/18/23 08/18/23 transdermal patch quetiapine 400 mg tablet 400 mg PO HS 08/18/23 08/18/23 ranolazine 500 mg tablet,extended 500 mg PO BID 08/18/23 08/18/23 release,12 hr sucralfate 1 gram tablet 1 g PO ACHS PRN Abdominal Pain 08/18/23 08/18/23 umeclidinium 62.5 mcg-vilanterol 1 inh inhalation QAM 08/18/23 08/18/23 25 mcg/actuation powdr for inhalation (Anoro Ellipta) Previous Rx's Medication Instructions Recorded verapamil 360 mg 24 hr 360 mg PO HS #90 caps 11/11/22 capsule,extended release pantoprazole 40 mg tablet,delayed 40 mg PO BID #60 tabs 12/22/22 release nitroglycerin 0.4 mg sublingual 0.4 mg sublingual UD PRN chest 02/17/23 tablet (Nitrostat) pain 30 days #25 tabs albuterol sulfate 90 mcg/actuation 2 puff inhalation Q6H PRN 04/18/23 aerosol inhaler (Ventolin HFA) Shortness Of Breath #8.5 grams rimegepant 75 mg disintegrating 75 mg PO .COMPLEX #8 tabs 05/03/23 tablet (Nurtec ODT) baclofen 10 mg tablet 10 mg PO HS #90 tabs 07/20/23 Results & Data (ED) Vital Signs Vital Signs - 24 hr 08/18/23 15:55 08/18/23 15:59 08/18/23 19:00 Temperature 36.7 C Temperature Source Temporal Artery Scan Pulse Rate 105 H Pulse Rate [Apical] 87 Pulse Rhythm Regular Pulse Rhythm [Apical] Regular Pulse Strength Normal Pulse Strength [Apical] Normal Respiratory Rate 26 H 20 Respiratory Effort / Characteristics Spontaneous Labored Short of Breath Short of Breath Non-Labored Respiratory Depth Deep Normal Respiratory Pattern Regular Regular Regular Blood Pressure 128/68 Blood Pressure [Right Arm] 136/54 L Blood Pressure Mean 88 Blood Pressure Mean [Right Arm] 81 Blood Pressure Position Sitting Pulse Oximetry 96 92 Oxygen Delivery Method Nasal Cannula Nasal Cannula Oxygen Flow Rate 3 4 Sepsis Recent Fever Within 48 Hours No Sepsis New/Unexplained Change in Mental Status N/A Sepsis Action Taken by Nursing No Action Required 08/18/23 19:37 08/18/23 20:42 08/18/23 21:00 Temperature Temperature Source Pulse Rate 83 Pulse Rate [Apical] 73 Pulse Rhythm Pulse Rhythm [Apical] Pulse Strength Pulse Strength [Apical] Respiratory Rate 20 Respiratory Effort / Characteristics Non-Labored Respiratory Depth Normal Respiratory Pattern Blood Pressure Blood Pressure [Right Arm] 122/69 Blood Pressure Mean Blood Pressure Mean [Right Arm] 86 Blood Pressure Position Pulse Oximetry 96 Oxygen Delivery Method Nasal Cannula Nasal Cannula Oxygen Flow Rate 4 4 Sepsis Recent Fever Within 48 Hours Sepsis New/Unexplained Change in Mental Status Sepsis Action Taken by Nursing Laboratory Data 08/18/23 16:52 08/18/23 16:52 Lab Results 08/18/23 08/18/23 08/18/23 Range/Units 16:52 18:49 Unknown WBC 8.48 (4.8-10.8) K/ul RBC 4.13 L (4.20-5.40) M/uL Hgb 11.4 L (12.0-16.0) g/dl Hct 35.6 L (37.0-47.0) % MCV 86.2 (80.0-100.0) fL MCH 27.6 (25.0-34.0) pg MCHC 32.0 (32.0-36.0) g/dL RDW Std Deviation 44.9 (36.4-46.3) fL RDW Coeff of Elicia 14.3 (11.5-14.5) % Plt Count 315 (130-400) K/uL MPV 9.5 (9.4-12.4) fL Immature Gran % (Auto) 0.4 % Neut % (Auto) 78.3 % Lymph % (Auto) 13.4 % [place] % (Auto) 7.7 % Eos % (Auto) 0.0 % Baso % (Auto) 0.2 % Neut # (Auto) 6.64 H (1.40-6.50) K/uL Lymph # (Auto) 1.14 L (1.20-3.40) K/uL [place] # (Auto) 0.65 H (0.11-0.59) K/uL Eos # (Auto) 0.00 (0.00-0.50) K/uL Baso # (Auto) 0.02 (0.00-0.20) K/uL Immature Gran # (Auto) 0.03 (0.01-0.20) K/uL Toxic Vacuolation 1+ Polychromasia 1+ Microcytosis Present Tear Drop Cells 1+ Ovalocytes 1+ PT 10.8 (9.0-12.0) Seconds INR 1.0 (0.9-1.1) APTT 28 (21-31) Seconds PTT Ratio 1.0 VBG pH 7.35 L (7.36-7.41) VBG pCO2 55 H (38-50) mmHg VBG pO2 25 mmHg VBG HCO3 30 mmol/L VBG O2 Saturation < 60.0 % VBG Base Excess 3.4 mEq/L Sodium 139 (136-145) mmol/L Potassium 4.1 (3.5-5.1) mmol/L Chloride 103 (98-107) mmol/L Carbon Dioxide 29 (21-32) mmol/L Anion Gap 7 (3-11) BUN 18 (6-23) mg/dl Creatinine 1.13 (0.6-1.2) mg/dl Est Cr Clr Drug Dosing Not Reportable Est GFR ( Amer) 59.9 ml/min Est GFR (Non-Af Amer) 51.7 ml/min BUN/Creatinine Ratio 15.9 (10-20) Glucose 153 H (70-99(Fasting)) mg/dl Calcium 9.0 (8.6-10.3) mg/dl Total Bilirubin 0.8 (0.2-1.0) mg/dl AST 17 (13-39) U/L ALT 19 (7-52) U/L Alkaline Phosphatase 68 (34-104) U/L Troponin I High Sens 329.7 H* 432.4 H* D (0-14) pg/ml Total Protein 7.2 (6.0-8.3) gm/dl Albumin 4.2 (3.4-5.0) gm/dl Globulin 3.0 (2.5-4.0) gm/dl Albumin/Globulin Ratio 1.4 (0.9-2) Procalcitonin 6.77 H (0-0.5) ng/ml SARS-CoV-2 (PCR) NEGATIVE (Negative) Influenza Type A (PCR) Negative (Neg) Influenza Type B (PCR) Negative (Neg) RSV (RT-PCR) Negative (Neg) Administered Medications Discontinued Medications Albuterol (Albut/Ipratrop 3mg/0.5mg Neb 3 Ml Vial) 3 ml NEB NOW STA; Protocol Stop: 08/18/23 19:27 Last Admin: 08/18/23 19:53 Dose: 3 ml Documented By: ERASMO Aspirin (Aspirin Chew 324 Mg) 324 mg PO NOW STA Stop: 08/18/23 18:21 Last Admin: 08/18/23 18:24 Dose: 324 mg Documented By: RENÉ Diphenhydramine HCl (Diphenhydramine 50 Mg/Ml Vial) 25 mg IV NOW STA Stop: 08/18/23 18:15 Last Admin: 08/18/23 18:24 Dose: 25 mg Documented By: RENÉ Cefepime HCl (Maxipime) 2,000 mg in 20 mls @ 5 mls/min IV NOW STA; Protocol Stop: 08/18/23 20:13 Last Admin: 08/18/23 20:52 Dose: 5 mls/min Documented By: ERASMO Azithromycin 500 mg/ Dextrose 255 mls @ 127.5 mls/hr IV NOW STA Stop: 08/18/23 22:09 Last Admin: 08/18/23 21:12 Dose: 127.5 mls/hr Documented By: ERASMO Ioversol (Optiray 320 125ml) 114 ml IV ONCE ONE Stop: 08/18/23 18:34 Last Admin: 08/18/23 18:36 Dose: 114 ml Documented By: WENDY Methylprednisolone (Methylprednisolone 125 Mg/2 Ml Vial) 125 mg IV NOW STA Stop: 08/18/23 18:15 Last Admin: 08/18/23 18:24 Dose: 125 mg Documented By: CT Imaging Data Radiologist's Impression: Chest X-Ray 08/18/23 16:00 XR chest 1V not portable CLINICAL HISTORY: Chest pain, nonspecific. COMPARISON STUDY: Chest radiograph January 07, 2023. Chest CT April 06, 2023. FINDINGS: There are median sternotomy wires and mediastinal surgical clips. Findings within the lumbar spine are incidentally noted. No pneumothorax or pleural effusion is present. Cardiomediastinal silhouette is stable. Extensive right infrahilar opacity is present. Patchy left basilar opacity is present. There is mild interlobular septal thickening within the right lung. IMPRESSION: 1. Extensive right infrahilar opacity with patchy left lower lung opacities. The findings favor multifocal pneumonia. Radiographic follow-up to ensure resolution is recommended. 2. Asymmetric interstitial thickening within the right lung. This may reflect mild pulmonary edema. ACT 112: Negative or not required by law. Electronically signed by: Jose Wakefield M.D. 08/18/2023 4:37 PM Chest CTA 08/18/23 18:14 CT ANGIOGRAM OF THE CHEST CLINICAL HISTORY: Cough and dyspnea COMPARISON STUDY: Chest x-ray dated 08/18/2023. Chest CT dated 04/06/2023. TECHNIQUE: Following the IV administration of 114 cc of Optiray 320, CT angiogram of the chest was performed from the upper abdomen to the thoracic inlet utilizing the pulmonary embolus protocol. Images are reviewed in the axial, sagittal, and coronal planes. 3-D MIPS images are created and assessed. IV contrast was administered without complication. A dose lowering technique was utilized adhering to the principles of ALARA. The examination is degraded by motion artifact. CT DOSE: 851.34 mGy.cm FINDINGS: Thyroid: Imaged portions of the thyroid gland are normal in size and attenuation. Thoracic aorta: There is atherosclerotic calcification of the thoracic aorta, which is normal in caliber and demonstrates standard 3-vessel arch anatomy. No dissection is seen. Pulmonary vasculature: The pulmonary trunk is normal in caliber. There are no filling defects identified in main, lobar, or segmental pulmonary branches to suggest pulmonary embolus. Evaluation of the peripheral branches is degraded by motion artifact. Heart: The patient is status post midline sternotomy. The heart is normal in size and without pericardial effusion. The coronary arteries are densely calcified. Lungs and pleural spaces: Evaluation of the lung parenchyma is degraded by motion artifact. Emphysematous change is noted. There is multi focal airspace consolidation throughout the right lung, greatest at the right lung base. Milder patchy airspace consolidation is seen throughout the left lung. There is no pleural effusion. The trachea and central airways are clear. Mediastinum: There are mildly enlarged mediastinal lymph nodes. A subcarinal node measures 11 mm in short axis. Precarinal nodes measure up to 10 mm in short axis. [place]: Mildly enlarged hilar nodes measure up to 12 mm in short axis. Axillae: There is no axillary lymphadenopathy. Upper abdomen: Cholecystectomy clips are noted. Partially visualized upper abdominal viscera is otherwise grossly unremarkable. Skeletal structures: The skeletal structures are osteopenic. Degenerative change is noted in the shoulders and spine. There is a chronic compression deformity of T11 with evidence of previous vertebroplasty. There are chronic/healed bilateral rib fractures. No lytic or blastic bony lesions are seen. IMPRESSION: 1. There is no evidence of pulmonary embolus in the main, lobar, or segmental pulmonary arteries. 2. Findings are consistent with multifocal pneumonia, right lung greater than left. Clinical correlation will be required and radiographic follow-up to resolution is recommended. 3. Mild emphysema. 4. Mildly enlarged mediastinal and hilar lymph nodes are likely reactive. 5. Additional findings as above. ACT 112: Negative or not required by law. Electronically signed by: Fermin Betancourt M.D. 08/18/2023 7:04 PM Discharge Plan Visit Data Chief Complaint: Shortness of Breath/Dyspnea Stated Complaint: SOB, COVID LAST WEEK, LOW OX, ON OXYGEN ED Provider: Gerry Valle Discharge Problem: Elevated troponin Forms Stand Alone Forms: My [facility] [place] [employer] (e-[employer]) Services Prescriptions Prescriptions: No Action verapamil 360 mg capsule,ext rel. pellets 24 hr 360 mg PO HS Qty: 90 3RF nitroglycerin [Nitrostat] 0.4 mg tablet, sublingual 0.4 mg Sublingual UD PRN (Reason: chest pain) 30 Days Qty: 25 3RF Patient Comments: patient stated it has been a long while since she took this medication Nurtec ODT 75 mg tablet,disintegrating 75 mg PO .COMPLEX Qty: 8 1RF Rx Instructions: 75 mg PO ONCE A DAY PRN. MAX DOSE 1 PER 24 HOURS; atorvastatin 80 mg tablet 80 mg PO QPM tramadol 50 mg tablet 100 mg PO Q8H PRN (Reason: pain) albuterol sulfate [Ventolin HFA] 90 mcg/actuation HFA aerosol inhaler 2 puff INHALATION Q6H PRN (Reason: Shortness Of Breath) Qty: 8.5 5RF baclofen 10 mg tablet 10 mg PO HS Qty: 90 3RF Rx Instructions: TAKE 1 TABLET BY MOUTH AT BEDTIME magnesium oxide 400 mg magnesium tablet 400 mg PO HS multivitamin [One Daily Multivitamin] Tablet 1 tab PO QAM cyanocobalamin (vitamin B-12) [Vitamin B-12] 1,000 mcg Tablet 1,000 mcg PO QAM aspirin [Rula Low Dose Aspirin] 81 mg Tablet,Delayed Release (Dr/Ec) 81 mg PO HS coenzyme Q10 [Co Q-10] 100 mg Capsule 200 mg PO HS omega 0-fqf-eay-fish oil [Fish Oil] 1,000 mg (120 mg-180 mg) Capsule 1 cap PO BID melatonin 10 mg Tablet 10 mg PO HS cholecalciferol (vitamin D3) [Vitamin D3] 25 mcg (1,000 unit) capsule 2,000 unit PO QAM duloxetine [Cymbalta] 30 mg Capsule,Delayed Release(Dr/Ec) 30 mg PO QAM gabapentin 600 mg tablet 600 mg PO TID albuterol sulfate 2.5 mg /3 mL (0.083 %) solution for nebulization 2.5 mg inhalation Q4H PRN (Reason: Shortness Of Breath Or Wheezing) ascorbic acid (vitamin C) [Vitamin C] 500 mg Tablet 500 mg PO QAM buspirone 10 mg Tablet 10 mg PO BID Cbd Gummies 1 dose PO DAILY PRN (Reason: Pain) pantoprazole 40 mg tablet,delayed release (DR/EC) 40 mg PO BID Qty: 60 5RF sucralfate 1 gram tablet 1 g PO ACHS PRN (Reason: Abdominal Pain) nicotine 7 mg/24 hr patch 24 hour 1 patch transdermal DAILY bupropion HCl 150 mg tablet extended release 24 hr 150 mg PO QAM lamotrigine 200 mg tablet 200 mg PO HS lamotrigine 100 mg tablet 150 mg PO QAM ibandronate 150 mg tablet 150 mg PO MONTHLY quetiapine 400 mg tablet 400 mg PO HS Anoro Ellipta 62.5-25 mcg/actuation blister with device 1 inh inhalation QAM ranolazine 500 mg tablet extended release 12 hr 500 mg PO BID Referrals Referrals: Kailee Lam PA-C [Primary Care Provider] -
[2023-08-18 18:56] LABS: Base Excess VBG 3.4 mEq/L; HCO3 VBG 30 mmol/L; Oxygen Saturation VBG < 60.0 %; PCO2 VBG 55 mmHg (38-50); PO2 VBG 25 mmHg; pH VBG 7.35 (7.36-7.41)
--- NOTE | 2023-08-18 19:06 | CT Scan Report ---
CT ANGIOGRAM OF THE CHEST CLINICAL HISTORY: Cough and dyspnea COMPARISON STUDY: Chest x-ray dated 08/18/2023. Chest CT dated 04/06/2023. TECHNIQUE: Following the IV administration of 114 cc of Optiray 320, CT angiogram of the chest was pe rformed from the upper abdomen to the thoracic inlet utilizing the pulmonary embolus protocol. Images are reviewed in the axial, sagittal, and coronal planes. 3-D MIPS images are created and assessed. I V contrast was administered without complication. A dose lowering technique was utilized adhering to the principles of ALARA. The examination is degraded by motion artifact. CT DOSE: 851.34 mGy.cm FINDINGS: Thyroid: Imaged portions of the thyroid gland are normal in size and attenuation. Thoracic aorta: There is atherosclerotic calcification of the thoracic aorta, which is normal in paula rolf and demonstrates standard 3-vessel arch anatomy. No dissection is seen. Pulmonary vasculature: The pulmonary trunk is normal in caliber. There are no filling defects identif ied in main, lobar, or segmental pulmonary branches to suggest pulmonary embolus. Evaluation of the p eripheral branches is degraded by motion artifact. Heart: The patient is status post midline sternotomy. The heart is normal in size and without pericar dial effusion. The coronary arteries are densely calcified. Lungs and pleural spaces: Evaluation of the lung parenchyma is degraded by motion artifact. Emphysema tous change is noted. There is multi focal airspace consolidation throughout the right lung, greatest at the right lung base. Milder patchy airspace consolidation is seen throughout the left lung. There is no pleural effusion. The trachea and central airways are clear. Mediastinum: There are mildly enlarged mediastinal lymph nodes. A subcarinal node measures 11 mm in s hort axis. Precarinal nodes measure up to 10 mm in short axis. Parisa: Mildly enlarged hilar nodes measure up to 12 mm in short axis. Axillae: There is no axillary lymphadenopathy. Upper abdomen: Cholecystectomy clips are noted. Partially visualized upper abdominal viscera is other galicia grossly unremarkable. Skeletal structures: The skeletal structures are osteopenic. Degenerative change is noted in the shou lders and spine. There is a chronic compression deformity of T11 with evidence of previous vertebropl asty. There are chronic/healed bilateral rib fractures. No lytic or blastic bony lesions are seen. IMPRESSION: 1. There is no evidence of pulmonary embolus in the main, lobar, or segmental pulmonary arteries. 2. Findings are consistent with multifocal pneumonia, right lung greater than left. Clinical correlat ion will be required and radiographic follow-up to resolution is recommended. 3. Mild emphysema. 4. Mildly enlarged mediastinal and hilar lymph nodes are likely reactive. 5. Additional findings as above. ACT 112: Negative or not required by law. Electronically signed by: Fermin Betancourt M.D. 08/18/2023 7:04 PM
[2023-08-18] MEDS ORDERED: ALBUT/IPRATROP 3MG/0.5MG NEB 3 ML VIAL NEB STA (19:26)
[2023-08-18 20:05] LABS: Influenza A virus by PCR Negative (Neg); Influenza B virus by PCR Negative (Neg); RSV by PCR Negative (Neg); SARS CoV2 RNA(COVID-19) Ceph NEGATIVE (Negative)
[2023-08-18] MEDS ORDERED: CEFEPIME 2,000 MG/20 ML VIAL IV STA (20:10)
[2023-08-18] MEDS ORDERED: AZITHROMYCIN 500 MG in DEXTROSE 5% 250 ML IV STA (20:10)
--- NOTE | 2023-08-18 20:45 | History & Physical Report ---
Date of Service August 18, 2023 Assessment & Plan (1) NSTEMI (non-ST elevated myocardial infarction): (2) Pneumonia: (3) COPD (chronic obstructive pulmonary disease): (4) Benign essential hypertension: (5) Type 2 diabetes mellitus with unspecified complications: (6) GERD (gastroesophageal reflux disease): (7) Anxiety: Plan Pt is a 63 yo female with a past medical history of COPD on 2L O2 at home, CAD with hx [place] x2 with CABG x4 in 2010, hx stroke, DMT2, GERD, and HTN who presents to the hospital on 08/18/23 for SOB. #NSTEMI - pt has new EKG changes of ST depressions without elevations on admission - trop 330 -> 430, trending - elevated trops may be secondary to demand ischemia/hypoxia but with EKG changes will treat as NSTEMI right now - given 325 mg aspirin in ED, will do aspirin 81 mg daily - nitro prn for chest pain, O2 as needed - continue home atorvastatin 80mg - will order echo - consult cardiology - heparin started (no bolus) - consider metoprolol 12.5 mg BID but BP and pulse on lower side for initiation right now, consider adding an SHAYY before discharge if BP stable as well #Pneumonia - CTA showed multifocal pneumonia, procal 6.77 - had recent COVID-19 infection - will start ceftriaxone + azithromycin - incentive spirometry, flutter valve #COPD - on 2L at home with sat low 90s usually - got 125 mg methylprednisolone in the ED - on 4L on admission with sat >95% - continue to monitor, seems unlikely at this point in time that pt is having a COPD exac so will defer further steroid use #HTN - continue home verapamil #DMT2 - will get am HA1c #GERD - continue home pantoprazole #Anxiety - continue home buproprion - continue home buspirone VTE ppx: heparin IVF: none Extra lines, drains, etc: none Dispo: PCU/telemetry History of Present Illness Chief Complaint: Shortness of breath Primary Care Provider: Kailee Lam Pt is a 63 yo female with a past medical history of COPD on 2L O2 at home, CAD with hx [place] x2 with CABG x4 in 2010, hx stroke, DMT2, GERD, and HTN who presents to the hospital on 08/18/23 for SOB. Pt states that she had felt very SOB last night. She states she always feels somewhat SOB with her COPD and wears 2L O2 when at home but not all the time. She states last night her SOB was much worse. No chest pain at the time but she did notice that the past 2 days or so she was getting intermittent episodes of chest pain to her anterior-left side of the chest and was not associated with any particular time of day or activity. She states she just saw her beam sealer a few weeks ago and at the time everything looked fine. She states that then this morning she noticed that her oxygen level was around 87% which she normally runs in the low 90s. She states that when she was then walking around today with her daughter, they noticed her oxygen level dropped into the 70s and so she decided to come and be seen. She notes she was sick with COVID 2 weeks ago but most of the symptoms were GI related. She states right now she has not had any chest pain since being here and that her worsened SOB is gone and she is feeling fine. No questions or complaints at this point. Allergies Allergy/AdvReac Type Severity Reaction Status Date / Time nitrofurantoin Allergy Intermediate HIVES Verified 08/18/23 20:48 senna Allergy Intermediate HIVES Verified 08/18/23 20:48 (FROM X-Prep), TAKES SENOKOT AT HOME Iodinated Contrast Media Allergy Mild RASH Verified 08/18/23 20:48 rizatriptan AdvReac Intermediate NAUSEA AND Verified 08/18/23 20:48 VOMITING sumatriptan AdvReac Intermediate WORSENED Verified 08/18/23 20:48 HEADACHE zolpidem AdvReac Intermediate NIGHTMARES Verified 08/18/23 20:48 Beta-Blockers AdvReac Mild HYPOTENSION Verified 08/18/23 20:48 (Beta-Adrenergic Bloc Home Medications Medication Instructions Recorded Confirmed Type aspirin 81 mg tablet,delayed 81 mg PO HS 07/27/18 08/18/23 History release (Rula Low Dose Aspirin) coenzyme Q10 100 mg capsule (Co 200 mg PO HS 07/27/18 08/18/23 History Q-10) cyanocobalamin (vitamin B-12) 1,000 mcg PO QAM 07/27/18 08/18/23 History 1,000 mcg tablet (Vitamin B-12) melatonin 10 mg tablet 10 mg PO HS 07/27/18 08/18/23 History multivitamin (One Daily 1 tab PO QAM 07/27/18 08/18/23 History Multivitamin tablet) omega 2-qqc-jdd-fish oil 1,000 mg 1 cap PO BID 07/27/18 08/18/23 History (120 mg-180 mg) capsule (Fish Oil) duloxetine 30 mg capsule,delayed 30 mg PO QAM 06/04/19 08/18/23 History release (Cymbalta) albuterol sulfate 2.5 mg/3 mL 2.5 mg inhalation Q4H PRN 06/16/19 08/18/23 History (0.083 %) solution for nebulization Shortness Of Breath Or Wheezing gabapentin 600 mg tablet 600 mg PO TID 06/16/19 08/18/23 History atorvastatin 80 mg tablet 80 mg PO QPM 10/04/19 08/18/23 History cholecalciferol (vitamin D3) 25 2,000 unit PO QAM 04/17/20 08/18/23 History mcg (1,000 unit) capsule (Vitamin D3) magnesium oxide 400 mg PO HS 10/30/20 08/18/23 History ascorbic acid (vitamin C) 500 mg 500 mg PO QAM 11/20/20 08/18/23 History tablet (Vitamin C) tramadol 50 mg tablet 100 mg PO Q8H PRN pain 10/01/21 08/18/23 History Cbd Gummies 1 dose PO DAILY PRN Pain 11/04/22 08/18/23 History buspirone 10 mg tablet 10 mg PO BID 11/04/22 08/18/23 History verapamil 360 mg 24 hr 360 mg PO HS #90 caps 11/11/22 08/18/23 Rx capsule,extended release pantoprazole 40 mg tablet,delayed 40 mg PO BID #60 tabs 12/22/22 08/18/23 Rx release nitroglycerin 0.4 mg sublingual 0.4 mg sublingual UD PRN chest 02/17/23 08/18/23 Rx tablet (Nitrostat) pain 30 days #25 tabs albuterol sulfate 90 mcg/actuation 2 puff inhalation Q6H PRN 04/18/23 08/18/23 Rx aerosol inhaler (Ventolin HFA) Shortness Of Breath #8.5 grams rimegepant 75 mg disintegrating 75 mg PO .COMPLEX #8 tabs 05/03/23 08/18/23 [facility] baclofen 10 mg tablet 10 mg PO HS #90 tabs 07/20/23 08/18/23 Rx bupropion HCl 150 mg 24 hr tablet, 150 mg PO QAM 08/18/23 08/18/23 History extended release ibandronate 150 mg tablet 150 mg PO MONTHLY 08/18/23 08/18/23 History lamotrigine 100 mg tablet 150 mg PO QAM 08/18/23 08/18/23 History lamotrigine 200 mg tablet 200 mg PO HS 08/18/23 08/18/23 History nicotine 7 mg/24 hr daily 1 patch transdermal DAILY 08/18/23 08/18/23 History transdermal patch quetiapine 400 mg tablet 400 mg PO HS 08/18/23 08/18/23 History ranolazine 500 mg tablet,extended 500 mg PO BID 08/18/23 08/18/23 History release,12 hr sucralfate 1 gram tablet 1 g PO ACHS PRN Abdominal Pain 08/18/23 08/18/23 History umeclidinium 62.5 mcg-vilanterol 1 inh inhalation QAM 08/18/23 08/18/23 History 25 mcg/actuation powdr for inhalation (Anoro Ellipta) Past Med/Surg History Medical History (Updated 08/18/23 @ 21:56 by Bridgette Hawley DO) Acute blood loss anemia Esophageal dysphagia Anemia History of home oxygen therapy 2L O2 PRN History of COVID-19 08/2022 (home test)- cough, COPD flare > "resolved" Bilateral carotid artery disease follows with Dr. Joya > 70% R/L ICA stenosis per 04/2022 carotid doppler, unchanged compared to 06/2021 per report. Repeat imaging in one year [place] [facility] [place] IBS (irritable bowel syndrome) Kidney stones No current issues per patient Low back problem PTSD (post-traumatic stress disorder) Follows with psych + counselor Some short-term and long-term memory issues (undetermined if r/t PTSD per patient) Seasonal allergies Sciatica Bilateral lumbar radiculopathy Colon polyp Hx Depression Lymphedema Restless legs syndrome GERD (gastroesophageal reflux disease) Migraine with aura and without status migrainosus, not intractable Radicular pain of lumbosacral region Transient ischemic attack (TIA) Several years ago, [place] [facility] [place] Ordaz) Emphysema of lung Follows with Dr. Gay Heart attack 2010 > stent 2011 > stent Dyslipidemia Benign essential hypertension Coronary artery disease 2010 > stent CABG x4 (2010) 2011 > stent Cauda equina syndrome Per remote records, pt unaware Surgical History History of cardiac cath 2009 > stent 2011 > stent S/P epidural steroid injection caudal epidural steroid injection H/O unilateral salpingectomy History of colonoscopy History of back surgery X6 TOTAL (LUMBAR) History of right knee surgery History of lithotripsy History of ectopic R/T TUBAL History of shoulder surgery RIGHT History of hysterectomy History of section x1 History of total knee replacement RIGHT History of cholecystectomy H/O heart bypass surgery CABG X4 (08/2010) Family History Daughter Atrial septal defect Son Atrial septal defect Sister Crohn's disease Family history of TN (myocardial infarction) Cancer Mother Cervical cancer Father Diabetes Coronary heart disease Cancer Brother Nephroblastoma Cancer Grandmother (Maternal) Diabetes Grandmother (Paternal) Diabetes Other No family history of adverse response to anesthesia No significant family history Social History Smoking Status: Former smoker Tobacco Type: Cigarettes Second Hand Exposure: No; Do You Dip or Chew Tobacco: No; Hx Alcohol Use: No Hx Substance Use: No Preferred Language: Spanish Communication Ability: Effective Visual Impairment: Limited Hearing Ability: Normal Client Business Manager Required: No Beliefs That Will Affect Care: None marital status: Current Living Situation: Alone current occupational status: disabled Feels Safe at Home: Yes Childhood Exposure to Second-Hand Smoke: Yes Assistive Devices: Oxygen - at Night and Walker Review of Systems Review of Systems: Constitutional: denies fever, chills, Cardio: denies chest pain, palpitations Resp: denies shortness of breath, Physical Exam Physical Exam: General: Alert and oriented, no acute distress, HEENT: Normocephalic, moist oral mucosa, Cardio: Regular rate and rhythm, Resp: Lungs clear to auscultation b/l, with some faint wheezing GI: Soft and nontender, nondistended, bowel sounds active Skin: Warm, pink, dry, Psych: Mood-affect congruence. Results & Data Results & Data Vital Signs (Past 12 Hours) Vital Signs Temp Pulse Pulse Resp BP BP Pulse Ox 08/18/23 19:37 83 08/18/23 19:00 87 20 136/54 L 92 08/18/23 15:55 36.7 C 105 H 26 H 128/68 96 O2 Del Method O2 Flow Rate 08/18/23 19:37 08/18/23 19:00 Nasal Cannula 4 08/18/23 15:55 Nasal Cannula 3 Supervising Physician Co-Signing Physician Notes Attending addendum: I have physically seen this patient, have supervised the medical residents activities, and agree with the H&P unless as otherwise noted. Assessment and Plan: NSTEMI/multivessel CAD/status post CABG x 4- The patient will be admitted to telemetry for serial cardiac enzymes, serial EKG's, cardiac rhythm monitoring and a 2-D echocardiogram with Dopplers. Initial troponin 432.4, with follow-up 341.[address]-T wave changes in leads V2 through V 5 Heparin drip standard dose without bolus begun in the ED Patient received her normal verapamil extended release 360 mg at bedtime, and developed relative hypotension to 70s-80s/40s-50s overnight. Verapamil dose will be cut in half to 180 mg at bedtime going forward Patient did respond to fluid boluses with improvement of blood pressure Continue aspirin, and ranolazine Cardiology consulted to see patient in a.m. Follow serial CBC with differential, chemistry profile and magnesium level Multifocal pneumonia, right greater than left/COPD- Ceftriaxone 2 g IV daily Azithromycin 500 mg IV daily Patient did receive Solu-Medrol 125 mg IV from the ED, but will hold on any further steroids at this time DuoNebs every 2 hours as needed Hyperlipidemia- Continue atorvastatin 80 mg at bedtime Anxiety- Continue bupropion, buspirone, duloxetine, gabapentin, quetiapine and lamotrigine Resident Activity Tracking Resident Involvement: Resident Care Provided Care Provided: Adult Hospital Medicine
[2023-08-18] MEDS ORDERED: Heparin IV Adult Wt-Based Standard *NO* INITIAL Bolus Protocol IV STA (21:49)
[2023-08-18] MEDS ORDERED: HEPARIN SODIUM/DEXTROSE 25,000 UNITS/500 ML BAG IV SCH (22:15)
[2023-08-18] MEDS ORDERED: NITROGLYCERIN SL 0.4 MG/TAB TAB SL PRN (22:50)
[2023-08-18] MEDS ORDERED: POLYETHYLENE (MIRALAX) 17 GM PACK PO PRN (22:50)
[2023-08-18] MEDS ORDERED: ALBUTEROL 0.083% NEBU SOLN 3 ML VIAL INH PRN (22:50)
[2023-08-18] MEDS ORDERED: ONDANSETRON INJ 2 MG/ML 2 ML VIAL IV PRN (22:50)
[2023-08-18] MEDS ORDERED: VERAPAMIL HCL 180 MG TABCR PO SCH (22:50)
[2023-08-18] MEDS ORDERED: ALBUTEROL HFA 8 GM INHALER INH PRN (22:50)
[2023-08-18] MEDS ORDERED: QUEtiapine FUMARATE 200 MG TAB PO SCH (22:50)
[2023-08-18] MEDS ORDERED: MELATONIN 3 MG TAB PO PRN (23:11)
[2023-08-19 00:26] LABS: ANTI-Xa, UFH(UnfractionatedHep 0.16 IU/ml (0.3-0.7)
[2023-08-19] MEDS: PANTOprazole 40 MG TAB PO SCH ×3 (00:43→20:56)
[2023-08-19] MEDS: GABAPENTIN 600 MG TAB PO SCH ×4 (00:43→20:58)
[2023-08-19] MEDS: lamoTRIgine 100 MG TAB PO SCH ×3 (00:44→20:59)
[2023-08-19] MEDS: ATORVASTATIN 40 MG TAB PO SCH ×2 (00:45→20:52)
[2023-08-19] MEDS: busPIRone 5 MG TAB PO SCH ×3 (00:45→20:57)
[2023-08-19] MEDS ORDERED: NSS + 20MEQ KCL 20 MEQ/1,000 ML BAG IV SCH (03:15)
[2023-08-19] MEDS ORDERED: SODIUM CHLORIDE 0.9% 500 ML IV ONE (05:07)
--- NOTE | 2023-08-19 05:28 | Billing Data ---
Date of Service August 19, 2023 Coding Level of Care Code 73910 INT INP/OBS CARE
[2023-08-19 07:36] LABS: Hematocrit (blood only) 31.6 % (37.0-47.0); Hemoglobin 9.7 g/dl (12.0-16.0); Mean Corpuscular Hemoglobin 27.4 pg (25.0-34.0); Mean Corpuscular Hgb Conc 30.7 g/dL (32.0-36.0); Mean Corpuscular Volume 89.3 fL (80.0-100.0); Mean Platelet Volume 9.5 fL (9.4-12.4); Platelet Count 221 K/uL (130-400); RDW Coefficient of Variation 14.2 % (11.5-14.5); RDW Standard Deviation 46.1 fL (36.4-46.3); Red Blood Count 3.54 M/uL (4.20-5.40); White Blood Count 12.63 K/ul (4.8-10.8)
[2023-08-19 08:00] LABS: Basophils # (auto) 0.03 K/uL (0.00-0.20); Basophils % (auto) 0.2 %; Dohle Bodies 1+; Immature Granulocytes # (auto) 0.13 K/uL (0.01-0.20); Lymphocytes # (auto) 0.85 K/uL (1.20-3.40); Lymphocytes % (auto) 6.7 %; Monocytes # (auto) 0.29 K/uL (0.11-0.59); Monocytes % (auto) 2.3 %; Neutrophils # (auto) 11.33 K/uL (1.40-6.50); Neutrophils % (auto) 89.8 %; Ovalocytes 1+
[2023-08-19 08:00] LABS: ANTI-Xa, UFH(UnfractionatedHep 0.69 IU/ml (0.3-0.7)
[2023-08-19] MEDS ORDERED: CEFEPIME 2,000 MG in SYRINGE 0 ML IV ONE (08:00)
[2023-08-19 08:17] LABS: Albumin Level 3.6 gm/dl (3.4-5.0); Bilirubin,Total 0.8 mg/dl (0.2-1.0); Calcium 8.9 mg/dl (8.6-10.3); Magnesium 2.4 mg/dl (1.7-2.4); Potassium 4.4 mmol/L (3.5-5.1)
[2023-08-19 08:23] LABS: Albumin Globulin Ratio 1.3 (0.9-2); BUN Creatinine Ratio 19.2 (10-20); Creatinine Clr Calc Pharmacy 48.1 ml/min; Est GFR (African American) 55.7 ml/min; Est GFR (Non-African American) 48.1 ml/min; Globulin 2.8 gm/dl (2.5-4.0); Total Protein 6.4 gm/dl (6.0-8.3)
[2023-08-19 08:56] LABS: Estimated Average Glucose 117 mg/dl; Hemoglobin A1C 5.7 % (4.5-5.6)
[2023-08-19] MEDS: guaiFENesin 600 MG TABCR PO SCH ×2 (09:17→20:59)
[2023-08-19] MEDS: DULoxetine HCL 30 MG CAP PO SCH (09:17)
[2023-08-19] MEDS: ASPIRIN 81 MG ECTAB PO SCH (09:17)
[2023-08-19] MEDS: buPROPion XL 150 MG TABCR PO SCH (09:17)
--- NOTE | 2023-08-19 10:20 | Hospitalist Progress Note ---
Date of Service August 19, 2023 Assessment & Plan (1) Acute and chronic respiratory failure with hypoxia: Plan: Sepsis present on admission as well as acute and chronic respiratory failure with hypoxia also present on admission due to multifocal pneumonia -initially on 4-5L O2, improved compared to last night -at baseline has prescription for 2L home O2 but not using consistently per her daughter -also may have underlying MARCOS - daughter reports witnessing apnea events - however her polypharmacy could be triggering these as well -continue supplemental O2 with sat goal 88-92%, is at risk of CO2 retention, mildly hypercarbic on vbg at 55, +asterixis -continue treatment for acute exacerbation of COPD, not wheezing but very tight on exam. solumedrol 125 mg IV in ED, ordered prednisone 20 mg daily (caution since had some hallucination overnight) -continue bronchodilators -continue treatment for pneumonia -improved but high risk for clinical deterioration, mortality, loss of functional status because of severity of acute illness and underlying comorbidities -PCU status (2) Pneumonia: Plan: Multifocal pneumonia with underlying COPD and recent COVID-19, at risk for gram- negative pneumonia -procalcitonin significantly elevated, COVID no longer positive (had 2 weeks BOTTLE TESTER) -changed ceftriaxone back to cefepime, continue azithromycin -IS, flutter valve ordered (3) NSTEMI (non-ST elevated myocardial infarction): Plan: Type 2 nstemi - myocardial strain related to sepsis and hypoxia. Underlying CAD with hx [place] x2 with CABG x4 in 2010, known multivessel CAD -initially treated with heparin drip -ST depressions on EKG, troponin peak around 400, downtrending -consulted cardiology discussed with Dr. Martinez. no evidence of ACS, reviewed TTE which is reassuring: previous inferior/basilar wma resolved since past study, EF 55-60% -stop heparin drip, continue ASA, statin for her known multivessel CAD. metoprolol currently held because of hypotension/bradycardia -relatively bradycardic and hypotensive (4) COPD (chronic obstructive pulmonary disease): Plan: As above Prednisone 20 mg daily Albuterol/ipratropium sched and PRN Continue control inhaler baseline home O2 is 2L (5) Benign essential hypertension: Plan: meds held (6) Type 2 diabetes mellitus with unspecified complications: Plan: A1c 5.7% not in diabetic range -monitor BG while on steroids -short acting insulin if needed (7) GERD (gastroesophageal reflux disease): Plan: Continue PPI and PRN carafate (8) Anxiety: Plan: anxiety, depression, chronic pain, chronic migraine takes bupropion, duloxetine, lamotrigine, seroquel, gabapentin, buspirone (9) Sepsis: Plan: due to pneumonia present on admission (10) Chronic migraine: Plan: lamotrigine, gabapentin, botox as outpatient, (11) CAD, multiple vessel: Plan: see above Plan Mild MARIAN on CKD stage 3 -Cr increased from baseline around 0.8 to 1.2, related to sepsis -euvolemic on TTE today -AM BMP Anxiety - continue home buproprion - continue home buspirone Chronic pain, daughter concerned about cognitive changes, polypharmacy, asterixis -reduced gabapentin dose (600-->300) mg tid, reduced seroquel dose (400-->200) Urinary retention - manriquez was placed in ED overnight. Assess for removal in 2-3 days when mobility improved VTE ppx: etart enoxaparin 40 SQ daily Disposition: PT/OT eval, anticipate discharge to her daughter's house possibly with hired evening caregivers Discussed with her daughter at bedside 08/19 Admission and Anticipated Discharge Date Admission Date: August 18, 2023 Subjective feeling better but still short of breath and cough at rest, has had no chest pain, daughter reports some hallucination overnight had initially improved from COVID then got worse again last few days Physical Exam 2 Physical Exam: PHYSICAL EXAMINATION Last 24h vital signs reviewed, see documentation in flowsheet General: frail appearing lying in bed in ED room HEENT: Normocephalic, atraumatic, pupils round and equal, sclerae anicteric, no conjunctival injection, moist mucus membranes Lungs: mildly increased respiratory effort. Clear to auscultation bilaterally anteriorly, extremely diminished posteriorly with coarse scattered crackles in all amezcua and extremely poor air movements. No audible wheezing Heart: Regular rate and rhythm, no murmurs. No JVD Abdomen: Soft, nontender, nondistended. Bowel sounds present. Extremities: Warm, dry, well-perfused. No extremity edema. Neuro: Alert and oriented x 4, face symmetric, moves 4 extremities well Psych: Normal affect and behavior Results & Data Results & Data Vital Signs (Past 12 Hours) Vital Signs Pulse Pulse Resp BP Pulse Ox Pulse Ox O2 Del Method 08/19/23 09:00 51 L 18 95/50 L 96 Oxymask 08/19/23 08:01 49 L 18 81/52 L 08/19/23 07:36 55 L 08/19/23 07:00 22 93 08/19/23 06:00 55 L 20 96/50 L 92 Oxymask 08/19/23 05:17 64 19 85/47 L 98 Nasal Cannula 08/19/23 05:00 49 L 19 76/43 L 08/19/23 04:00 53 L 18 89/54 L 95 Nasal Cannula 08/19/23 03:40 58 L 18 87/51 L 92 Nasal Cannula 08/19/23 03:04 61 18 88/61 L 95 Nasal Cannula 08/19/23 03:01 45 L 16 70/38 L 96 Nasal Cannula 08/19/23 02:00 54 L 18 95/59 L 98 Nasal Cannula 08/19/23 01:00 58 L 18 106/48 L 96 Nasal Cannula 08/19/23 00:00 Nasal Cannula 08/19/23 00:00 59 L 23 90 Nasal Cannula 08/19/23 00:00 Nasal Cannula 08/19/23 00:00 58 L 21 113/52 L 98 Nasal Cannula 08/18/23 23:34 57 L 21 94/60 L 95 Nasal Cannula 08/18/23 23:00 94 O2 Del Method O2 Flow Rate 08/19/23 09:00 5 08/19/23 08:01 08/19/23 07:36 08/19/23 07:00 08/19/23 06:00 3 08/19/23 05:17 2 08/19/23 05:00 08/19/23 04:00 2 08/19/23 03:40 2 08/19/23 03:04 2 08/19/23 03:01 2 08/19/23 02:00 2 08/19/23 01:00 2 08/19/23 00:00 2 08/19/23 00:00 2 08/19/23 00:00 2 08/19/23 00:00 2 08/18/23 23:34 2 08/18/23 23:00 Room Air Laboratory Results 08/19/23 07:08 08/19/23 07:08 PG Care Time/CCT Total # of Minutes Spent Total Time Spent with Patient: I personally spent: 55 minutes today on clinical care activities including: reviewing chart notes and vital signs, including outpatient notes reviewing labs reviewing studies discussion with hadoop consultant(s) - cardiology examining and counseling the patient counseling the patient's family writing orders documentation Coding Level of Care Code 43959 SUB INP/OBS CARE 3/50MIN Diagnoses Acute and chronic respiratory failure with hypoxia J96.21 Pneumonia J18.9 NSTEMI (non-ST elevated myocardial infarction) I21.4 COPD (chronic obstructive pulmonary disease) J44.9 Benign essential hypertension I10 Type 2 diabetes mellitus with unspecified complications E11.8 GERD (gastroesophageal reflux disease) K21.9 Anxiety F41.9 Sepsis A41.9 Chronic migraine CAD, multiple vessel I25.10
--- NOTE | 2023-08-19 10:35 | XCELERA ---
[id number]
[2023-08-19] MEDS ORDERED: SUCRALFATE 1 GM TAB PO PRN (10:52)
--- NOTE | 2023-08-19 11:58 | Electrocardiogram Report ---
Test Reason : Blood Pressure : / mmHG Vent. Rate : 104 BPM Atrial Rate : 104 BPM P-R Int : 136 ms QRS Dur : 094 ms QT Int : 340 ms P-R-T Axes : 075 026 124 degrees QTc Int : 447 ms Sinus tachycardia Incomplete right bundle branch block T-wave inversion in Anterior leads , consider ischemia Abnormal ECG When compared with ECG of 25-JUL-2023 11:52, T wave inversion now evident in Anterior leads Confirmed by Shaheen Martinez ([id number]) on 08/19/2023 11:58:07 AM Referred By: REFERRED SELF Confirmed By:Shaheen Martinez
[2023-08-19] MEDS: predniSONE 20 MG TAB PO SCH (12:12)
[2023-08-19] MEDS: UMECLIDINIUM/VILANTEROL 62.5/25MCG 7 PUFFS/INHALER INH SCH (12:12)
--- NOTE | 2023-08-19 16:05 | Cardiology Consultation ---
Date of Consultation August 19, 2023 Assessment & Plan (1) Demand ischemia: (2) Acute and chronic respiratory failure with hypoxia: (3) COPD (chronic obstructive pulmonary disease): (4) CAD, multiple vessel: (5) Pneumonia: (6) S/P CABG x 4: Plan 63-year-old woman with significant COPD (chronic oxygen), CAD status post remote CABG, noted progressive respiratory symptoms with clinic evaluation and imaging suggesting pneumonia. She had only very transient chest discomfort and does have a modest but flat troponin elevation, likely some degree of demand ischemia from increased work of breathing, initial tachycardia, and labile blood pressure (currently mildly hypotensive). Although her CABG was remote, it did include a ALFONSO graft, thus offering substantial protection and limiting myocardium at risk. As noted, pharmacologic imaging study within the past year showed no ischemia, also suggesting limited myocardium at risk. She had no ongoing chest discomfort at the time of my evaluation. Presentation seems most consistent with respiratory decompensation and demand ischemia as opposed to acute coronary syndrome. Could discontinue heparin and continue her aspirin/atorvastatin) but hold verapamil/ranolazine to allow more physiologic heart rate response to her respiratory distress (currently mildly bradycardic in the face of increased respiratory effort). If any tachycardia develops, this could be treated with small doses of beta- hiro, or given her underlying COPD perhaps short acting diltiazem. Will check follow-up ECG to affirm resolution of initial ischemic appearing findings. Dr. Bravo will be covering the weekend, he is aware of the patient's clinical course thus far. History of Present Illness Reason for Consultation: NSTEMI Requesting Physician: Cris Grant MD Attending Physician: Cris Grant MD History of Present Illness 63-year-old woman with history of severe COPD (supplemental oxygen), CAD (CABG 2010), CVA, carotid stenosis, and other medical problems noted progressive dyspnea and was found to have declining oxygen saturation at home (saturation in the 70% range), brought to the ER where CT/chest x-ray suggest multifocal pneumonia and noted to have dynamic ECG changes with elevated troponin. When I spoke with her, she noted her predominant symptom was dyspnea, she does note some degree of orthopnea but denied PND. She has had intermittent mild chest discomfort but this has not been sustained. No palpitations, presyncope, syncope, or leg edema. ECG showed anteroseptal ST depression with anterior T wave inversions which appeared new. Troponin moderately elevated ([id number]) but flat. Telemetry showed sinus bradycardia in the 50 bpm range during the day today. At the time my evaluation earlier today, her breathing had improved and she did not note dyspnea at rest, but did become dyspneic with any exertion. Allergies Allergy/AdvReac Type Severity Reaction Status Date / Time nitrofurantoin Allergy Intermediate HIVES Verified 08/18/23 20:48 senna Allergy Intermediate HIVES Verified 08/18/23 20:48 (FROM X-Prep), TAKES SENOKOT AT HOME Iodinated Contrast Media Allergy Mild RASH Verified 08/18/23 20:48 rizatriptan AdvReac Intermediate NAUSEA AND Verified 08/18/23 20:48 VOMITING sumatriptan AdvReac Intermediate WORSENED Verified 08/18/23 20:48 HEADACHE zolpidem AdvReac Intermediate NIGHTMARES Verified 08/18/23 20:48 Beta-Blockers AdvReac Mild HYPOTENSION Verified 08/18/23 20:48 (Beta-Adrenergic Bloc Home Medications Medication Instructions Recorded Confirmed Type aspirin 81 mg tablet,delayed 81 mg PO HS 07/27/18 08/18/23 History release (Rula Low Dose Aspirin) coenzyme Q10 100 mg capsule (Co 200 mg PO HS 07/27/18 08/18/23 History Q-10) cyanocobalamin (vitamin B-12) 1,000 mcg PO QAM 07/27/18 08/18/23 History 1,000 mcg tablet (Vitamin B-12) melatonin 10 mg tablet 10 mg PO HS 07/27/18 08/18/23 History multivitamin (One Daily 1 tab PO QAM 07/27/18 08/18/23 History Multivitamin tablet) omega 1-igi-mms-fish oil 1,000 mg 1 cap PO BID 07/27/18 08/18/23 History (120 mg-180 mg) capsule (Fish Oil) duloxetine 30 mg capsule,delayed 30 mg PO QAM 06/04/19 08/18/23 History release (Cymbalta) albuterol sulfate 2.5 mg/3 mL 2.5 mg inhalation Q4H PRN 06/16/19 08/18/23 History (0.083 %) solution for nebulization Shortness Of Breath Or Wheezing gabapentin 600 mg tablet 600 mg PO TID 06/16/19 08/18/23 History atorvastatin 80 mg tablet 80 mg PO QPM 10/04/19 08/18/23 History cholecalciferol (vitamin D3) 25 2,000 unit PO QAM 04/17/20 08/18/23 History mcg (1,000 unit) capsule (Vitamin D3) magnesium oxide 400 mg PO HS 10/30/20 08/18/23 History ascorbic acid (vitamin C) 500 mg 500 mg PO QAM 11/20/20 08/18/23 History tablet (Vitamin C) tramadol 50 mg tablet 100 mg PO Q8H PRN pain 10/01/21 08/18/23 History Cbd Gummies 1 dose PO DAILY PRN Pain 11/04/22 08/18/23 History buspirone 10 mg tablet 10 mg PO BID 11/04/22 08/18/23 History verapamil 360 mg 24 hr 360 mg PO HS #90 caps 11/11/22 08/18/23 Rx capsule,extended release pantoprazole 40 mg tablet,delayed 40 mg PO BID #60 tabs 12/22/22 08/18/23 Rx release nitroglycerin 0.4 mg sublingual 0.4 mg sublingual UD PRN chest 02/17/23 08/18/23 Rx tablet (Nitrostat) pain 30 days #25 tabs albuterol sulfate 90 mcg/actuation 2 puff inhalation Q6H PRN 04/18/23 08/18/23 Rx aerosol inhaler (Ventolin HFA) Shortness Of Breath #8.5 grams rimegepant 75 mg disintegrating 75 mg PO .COMPLEX #8 tabs 05/03/23 08/18/23 Rx tablet (Nurtec ODT) baclofen 10 mg tablet 10 mg PO HS #90 tabs 07/20/23 08/18/23 Rx bupropion HCl 150 mg 24 hr tablet, 150 mg PO QAM 08/18/23 08/18/23 History extended release ibandronate 150 mg tablet 150 mg PO MONTHLY 08/18/23 08/18/23 History lamotrigine 100 mg tablet 150 mg PO QAM 08/18/23 08/18/23 History lamotrigine 200 mg tablet 200 mg PO HS 08/18/23 08/18/23 History nicotine 7 mg/24 hr daily 1 patch transdermal DAILY 08/18/23 08/18/23 History transdermal patch quetiapine 400 mg tablet 400 mg PO HS 08/18/23 08/18/23 History ranolazine 500 mg tablet,extended 500 mg PO BID 08/18/23 08/18/23 History release,12 hr sucralfate 1 gram tablet 1 g PO ACHS PRN Abdominal Pain 08/18/23 08/18/23 History umeclidinium 62.5 mcg-vilanterol 1 inh inhalation QAM 08/18/23 08/18/23 History 25 mcg/actuation powdr for inhalation (Anoro Ellipta) Patient History Medical History Acute blood loss anemia Esophageal dysphagia Anemia History of home oxygen therapy History of COVID-19 Bilateral carotid artery disease IBS (irritable bowel syndrome) Kidney stones Low back problem PTSD (post-traumatic stress disorder) Seasonal allergies Sciatica Bilateral lumbar radiculopathy Colon polyp Depression Lymphedema Restless legs syndrome GERD (gastroesophageal reflux disease) Migraine with aura and without status migrainosus, not intractable Radicular pain of lumbosacral region Transient ischemic attack (TIA) Emphysema of lung Heart attack Dyslipidemia Benign essential hypertension Coronary artery disease Cauda equina syndrome Surgical History History of cardiac cath S/P epidural steroid injection H/O unilateral salpingectomy History of colonoscopy History of back surgery History of right knee surgery History of lithotripsy History of ectopic History of shoulder surgery History of hysterectomy History of section History of total knee replacement History of cholecystectomy H/O heart bypass surgery Family History Daughter Atrial septal defect Son Atrial septal defect Sister Crohn's disease Family history of OR (myocardial infarction) Cancer Mother Cervical cancer Father Diabetes Coronary heart disease Cancer Brother Nephroblastoma Cancer Grandmother (Maternal) Diabetes Grandmother (Paternal) Diabetes Other No family history of adverse response to anesthesia No significant family history Social History Smoking Status: Former smoker Tobacco Type: Cigarettes Second Hand Exposure: No; Do You Dip or Chew Tobacco: No; Hx Alcohol Use: No Hx Substance Use: No Preferred Language: Irish Communication Ability: Effective Visual Impairment: Limited Hearing Ability: Normal Pulp Drier Required: No Beliefs That Will Affect Care: None marital status: Current Living Situation: Alone current occupational status: disabled Feels Safe at Home: Yes Safety Concerns: Feels Safe At This Time Childhood Exposure to Second-Hand Smoke: Yes Assistive Devices: Oxygen - Continuous and Walker Physical Exam Physical Exam: Adult white female appears chronically ill but not acutely distressed. Afebrile. BP 95/50 mmHg. Pulse 51 bpm and regular. Respirations 18 and mildly labored. Skin: no ecchymoses or generalized lesions. HEENT: unremarkable. Neck: JVP at the clavicle at 90 degrees, no carotid bruits. Lungs: Markedly decreased breath sounds but no obvious wheezes or crackles. Mild accessory muscle use. Cardiac: regular rhythm, normal S1-2, faint heart tones/no obvious murmur. Abdomen: benign. Extremities: no edema, pulses intact. Neurologic: normal affect and conversation, nonfocal. Results & Data Laboratory Results Troponin values 329, 432, 341, 383. Normal electrolytes, BUN 23, creatinine 1.2. Hemoglobin 9.7, with white count 12.6. Diagnostic Findings ECG showed sinus tachycardia 104 bpm, incomplete right bundle branch block, and anterior T wave inversions and ST depression. Compared with 07/25/2023 ECG, T wave inversion was no. Chest x-ray showed patchy left lower opacities suggesting multifocal pneumonia. Chest CT showed multifocal pneumonia, mild emphysema, no pulmonary embolism. Echocardiogram showed EF 55 to 60%, no regional wall motion abnormalities, mild to moderate MR, moderately dilated RV with mildly reduced systolic function. Mild pulmonary hypertension. Compared with 2018 study, right heart dilation/mild RV systolic dysfunction and mild pulmonary hypertension are new, previous note inferobasal wall motion abnormality no longer seen. Lexiscan pharmacologic's nuclear imaging December 2022 showed no significant ischemia. PG Care Time/CCT Total # of Minutes Spent Total Time Spent with Patient: Total time spent is greater than 50% in coordination of care (as documented) at patient's floor/unit and/or counseling patient: Coding Level of Care Code 78177 IN/OBS CONSULT LVL 4,60M Diagnoses Demand ischemia I24.89 Acute and chronic respiratory failure with hypoxia J96.21 COPD (chronic obstructive pulmonary disease) J44.9 CAD, multiple vessel I25.10 Pneumonia J18.9 S/P CABG x 4 Z95.1
--- NOTE | 2023-08-19 17:59 | Electrocardiogram Report ---
Test Reason : Blood Pressure : / mmHG Vent. Rate : 050 BPM Atrial Rate : 052 BPM P-R Int : 000 ms QRS Dur : 106 ms QT Int : 476 ms P-R-T Axes : 000 029 130 degrees QTc Int : [address] depression in Septal leads Diffuse Minor Nonspecific T wave abnormality Abnormal ECG When compared with ECG of 18-AUG-2023 16:43, HR has decreased by 54 bpm Sinus rhythm no longer present T-wave inversion in Anterior leads less pronounced Confirmed by Shaheen Martinez ([id number]) on 08/19/2023 5:59:43 PM Referred By: REFERRED SELF Confirmed By:Shaheen Martinez
[2023-08-19] MEDS ORDERED: cefTRIAXone SODIUM 1,000 MG in DEXTROSE 5 % MINI-B 50 ML IV SCH (20:00)
[2023-08-19] MEDS: CEFEPIME 2,000 MG in SYRINGE 0 ML IV SCH (20:47)
[2023-08-19] MEDS: AZITHROMYCIN 500 MG in DEXTROSE 5% 250 ML IV SCH (20:50)
[2023-08-19] MEDS: BACLOFEN 10 MG TAB PO SCH (20:53)
[2023-08-19] MEDS: QUEtiapine FUMARATE 200 MG TAB PO SCH (21:01)
[2023-08-19] MEDS: MAGNESIUM OXIDE 400 MG TAB PO SCH (21:01)
[2023-08-19 22:00] LABS: A calco-baum cmplx NotReported Not Detected (NotDetected); Bact fragilis Not Reported Not Detected (NotDetected); Blood Culture Id Panel See PCR Comment (NotDetected); C auris Not Reported Not Detected (NotDetected); Calbicans Not Reported Not Detected (NotDetected); Candida glabrata Not Reported Not Detected (NotDetected); Candida krusei Not Reported Not Detected (NotDetected); Cneoformans/gatti Not Reported Not Detected (NotDetected); Cparapsilosis Not Reported Not Detected (NotDetected); E cloacae compx Not Reported Not Detected (NotDetected); Efaecalis Not Reported Not Detected (NotDetected); Efaecium Not Reported Not Detected (NotDetected); Enterobacterales Not Reported Not Detected (NotDetected); Escherichia coli Not Reported Not Detected (NotDetected); H influenzae Not Reported Not Detected (NotDetected); K aerogenes Not Reported Not Detected (NotDetected); Koxytoca Not Reported Not Detected (NotDetected); Kpneumoniae grp Not Reported Not Detected (NotDetected); Lmonocyt Not Reported Not Detected (NotDetected); N meningitidis Not Reported Not Detected (NotDetected); P aeruginosa Not Reported Not Detected (NotDetected); Proteus spp Not Reported Not Detected (NotDetected); Salmonella spp Not Reported Not Detected (NotDetected); Smarcescens Not Reported Not Detected (NotDetected); Staph lugdunensis Not Reported Not Detected (NotDetected); Staph spp. Not Reported Not Detected (NotDetected); Staphaureus Not Reported Not Detected (NotDetected); Staphepi Not Reported Not Detected (NotDetected); Stenmaltophilia Not Reported Not Detected (NotDetected); Strep agal(GrpB) Not Reported Not Detected (NotDetected); Strep pneum Not Reported Not Detected (NotDetected); Strep pyog (GrpA) Not Reported Not Detected (NotDetected); Strep spp Not Reported DETECTED (NotDetected)
[2023-08-19 22:19] LABS: Streptococcus spp DETECTED (NotDetected)
[2023-08-20 04:47] LABS: Hematocrit (blood only) 26.8 % (37.0-47.0); Hemoglobin 8.4 g/dl (12.0-16.0); Mean Corpuscular Hemoglobin 27.4 pg (25.0-34.0); Mean Corpuscular Hgb Conc 31.3 g/dL (32.0-36.0); Mean Corpuscular Volume 87.3 fL (80.0-100.0); Mean Platelet Volume 9.7 fL (9.4-12.4); Platelet Count 227 K/uL (130-400); RDW Coefficient of Variation 14.7 % (11.5-14.5); RDW Standard Deviation 46.9 fL (36.4-46.3); Red Blood Count 3.07 M/uL (4.20-5.40); White Blood Count 11.24 K/ul (4.8-10.8)
[2023-08-20 04:58] LABS: Albumin Globulin Ratio 1.2 (0.9-2); Albumin Level 3.3 gm/dl (3.4-5.0); Bilirubin,Total 0.5 mg/dl (0.2-1.0); Calcium 8.9 mg/dl (8.6-10.3); Creatinine Clr Calc Pharmacy 41.7 ml/min; Est GFR (African American) 47.5 ml/min; Est GFR (Non-African American) 40.9 ml/min; Globulin 2.7 gm/dl (2.5-4.0); Magnesium 2.5 mg/dl (1.7-2.4); Potassium 4.2 mmol/L (3.5-5.1)
[2023-08-20] MEDS ORDERED: LACTATED RINGER'S 1,000 ML IV SCH (08:00)
[2023-08-20] MEDS: ASPIRIN 81 MG ECTAB PO SCH (08:45)
[2023-08-20] MEDS: buPROPion XL 150 MG TABCR PO SCH (08:46)
[2023-08-20] MEDS: DULoxetine HCL 30 MG CAP PO SCH (08:46)
[2023-08-20] MEDS: GABAPENTIN 600 MG TAB PO SCH ×3 (08:47→22:04)
[2023-08-20] MEDS: guaiFENesin 600 MG TABCR PO SCH ×2 (08:48→22:04)
[2023-08-20] MEDS: busPIRone 5 MG TAB PO SCH ×2 (08:49→22:05)
[2023-08-20] MEDS: lamoTRIgine 100 MG TAB PO SCH ×2 (08:49→22:04)
[2023-08-20] MEDS: predniSONE 20 MG TAB PO SCH (08:50)
[2023-08-20] MEDS: UMECLIDINIUM/VILANTEROL 62.5/25MCG 7 PUFFS/INHALER INH SCH (08:50)
[2023-08-20] MEDS: PANTOprazole 40 MG TAB PO SCH ×2 (08:50→22:03)
[2023-08-20] MEDS: CEFEPIME 2,000 MG in SYRINGE 0 ML IV SCH ×2 (08:58→22:02)
[2023-08-20] MEDS: traMADol HCL 50 MG TABLET PO PRN ×2 (09:00→17:17)
[2023-08-20] MEDS: ENOXAPARIN INJ 40 MG/0.4 ML SYR SQ SCH (11:23)
--- NOTE | 2023-08-20 16:36 | Hospitalist Progress Note ---
Date of Service August 20, 2023 Assessment & Plan (1) Acute and chronic respiratory failure with hypoxia: Plan: Sepsis present on admission as well as acute and chronic respiratory failure with hypoxia also present on admission due to multifocal pneumonia -initially on 4-5L O2, improved now on 3L -afebrile, WBC 13-->11, procal 6.77-->2.4 -at baseline has prescription for 2L home O2 but not using consistently per her daughter -also may have underlying MARCOS - daughter reports witnessing apnea events - however her polypharmacy could be triggering these as well -continue supplemental O2 with sat goal 88-92%, is at risk of CO2 retention, mildly hypercarbic on vbg at 55, asterixis resolved and fully alert now -continue treatment for acute exacerbation of COPD, air movement much improved. solumedrol 125 mg IV in ED, continue prednisone 20 mg daily -continue bronchodilators -continue treatment for pneumonia -significantly improved (2) Pneumonia: Plan: Multifocal pneumonia with underlying COPD and recent COVID-19, at risk for gram- negative pneumonia -procalcitonin significantly elevated improved, COVID no longer positive (had 2 weeks [employer]) -contiue cefepime, continue azithromycin -IS, flutter valve ordered (3) NSTEMI (non-ST elevated myocardial infarction): Plan: Type 2 nstemi - myocardial strain related to sepsis and hypoxia. Underlying CAD with hx [place] x2 with CABG x4 in 2010, known multivessel CAD -initially treated with heparin drip -ST depressions on EKG, troponin peak around 400, downtrended -consulted cardiology discussed with Dr. Martinez. no evidence of ACS, reviewed TTE which is reassuring: previous inferior/basilar wma resolved since past study, EF 55-60% -stopped heparin drip 08/19, continue ASA, statin for her known multivessel CAD -ranexa and verapamil initially held for hypotension and bradycardia -bradycardia and hypotension resolved (4) COPD (chronic obstructive pulmonary disease): Plan: As above Prednisone 20 mg daily Albuterol/ipratropium sched and PRN Continue control inhaler baseline home O2 is 2L (5) Benign essential hypertension: Plan: meds held (6) Type 2 diabetes mellitus with unspecified complications: Plan: A1c 5.7% not in diabetic range -monitor BG while on steroids - BG reviewed, mildly elevated -short acting insulin if needed (7) GERD (gastroesophageal reflux disease): Plan: Continue PPI and PRN carafate (8) Anxiety: Plan: anxiety, depression, chronic pain, chronic migraine takes bupropion, duloxetine, lamotrigine, seroquel, gabapentin, buspirone (9) Sepsis: Plan: due to pneumonia present on admission (10) Chronic migraine: Plan: lamotrigine, gabapentin, botox as outpatient (11) CAD, multiple vessel: Plan: see above Plan Mild MARIAN on CKD stage 3 -Cr increased from baseline around 0.8 to 1.2, related to sepsis -euvolemic on TTE 08/19 -Cr more elevated at 1.37, ordered LR x 1 L -AM BMP Anxiety - continue home buproprion - continue home buspirone Chronic pain, daughter concerned about cognitive changes, polypharmacy, asterixis -reduced gabapentin dose (600-->300) mg tid, reduced seroquel dose (400-->200) -doing very well on this today, asterixis resolved and much more alert Urinary retention - manriquez was placed in ED. Will remove for voiding trial now more alert and mobile VTE ppx: etart enoxaparin 40 SQ daily Disposition: PT/OT eval pending, anticipate discharge to her daughter's house possibly with hired evening caregivers Discussed with her daughter at bedside 08/19 Admission and Anticipated Discharge Date Admission Date: August 18, 2023 Subjective Doing MUCH better, sitting by window in chair, now fully alert, shortness of breath and cough improved, no chest pain, tremor improved Physical Exam 2 Physical Exam: PHYSICAL EXAMINATION Last 24h vital signs reviewed, see documentation in flowsheet General: sitting in chair by window, looks MUCH improved HEENT: Normocephalic, atraumatic, pupils round and equal, sclerae anicteric, no conjunctival injection, moist mucus membranes Lungs: comfortable respiratory effort. clear anteriorly. posteriorly scattered coarse sounds throughout especially in bases, exp wheezes in bases, air mvt much improved Heart: Regular rate and rhythm, no murmurs. No JVD Abdomen: Soft, nontender, nondistended. Bowel sounds present. Extremities: Warm, dry, well-perfused. No extremity edema. Neuro: Alert and oriented x 4, face symmetric, moves 4 extremities well, no tremor or asterixis Psych: Normal affect and behavior Results & Data Results & Data Vital Signs (Past 12 Hours) Vital Signs Temp Pulse Resp BP Pulse Ox O2 Del Method O2 Del Method 08/20/23 12:13 36.7 C 86 19 131/70 90 08/20/23 08:06 36.7 C 86 18 124/75 91 08/20/23 07:22 Nasal Cannula 08/20/23 07:20 Nasal Cannula 08/20/23 05:38 36.6 C 80 18 112/65 3 L Nasal Cannula 08/20/23 04:42 79 08/20/23 04:42 Nasal Cannula 08/20/23 04:42 Nasal Cannula O2 Flow Rate O2 Flow Rate 08/20/23 12:13 08/20/23 08:06 08/20/23 07:22 3 08/20/23 07:20 3 08/20/23 05:38 08/20/23 04:42 08/20/23 04:42 3 08/20/23 04:42 3 Laboratory Results 08/20/23 03:51 08/20/23 03:51 PG Care Time/CCT Total # of Minutes Spent Total Time Spent with Patient: Total time spent is greater than 50% in coordination of care (as documented) at patient's floor/unit and/or counseling patient: Coding Level of Care Code 73390 SUB INP/OBS CARE 2/35MIN Diagnoses Acute and chronic respiratory failure with hypoxia J96.21 Pneumonia J18.9 NSTEMI (non-ST elevated myocardial infarction) I21.4 COPD (chronic obstructive pulmonary disease) J44.9 Benign essential hypertension I10 Type 2 diabetes mellitus with unspecified complications E11.8 GERD (gastroesophageal reflux disease) K21.9 Anxiety F41.9 Sepsis A41.9 Chronic migraine CAD, multiple vessel I25.10
[2023-08-20] MEDS: BACLOFEN 10 MG TAB PO SCH (22:02)
[2023-08-20] MEDS: QUEtiapine FUMARATE 200 MG TAB PO SCH (22:03)
[2023-08-20] MEDS: AZITHROMYCIN 500 MG in DEXTROSE 5% 250 ML IV SCH (22:03)
[2023-08-20] MEDS: MAGNESIUM OXIDE 400 MG TAB PO SCH (22:03)
[2023-08-20] MEDS: ATORVASTATIN 40 MG TAB PO SCH (22:05)
[2023-08-21 06:53] LABS: BUN Creatinine Ratio 19.4 (10-20); Calcium 8.7 mg/dl (8.6-10.3); Creatinine Clr Calc Pharmacy 58.3 ml/min; Est GFR (African American) 71.2 ml/min; Est GFR (Non-African American) 61.4 ml/min; Potassium 3.8 mmol/L (3.5-5.1)
[2023-08-21 07:02] LABS: Hematocrit (blood only) 27.2 % (37.0-47.0); Hemoglobin 8.6 g/dl (12.0-16.0); Mean Corpuscular Hemoglobin 27.5 pg (25.0-34.0); Mean Corpuscular Hgb Conc 31.6 g/dL (32.0-36.0); Mean Corpuscular Volume 86.9 fL (80.0-100.0); Mean Platelet Volume 9.6 fL (9.4-12.4); Platelet Count 237 K/uL (130-400); RDW Coefficient of Variation 14.8 % (11.5-14.5); RDW Standard Deviation 47.3 fL (36.4-46.3); Red Blood Count 3.13 M/uL (4.20-5.40); White Blood Count 10.75 K/ul (4.8-10.8)
--- NOTE | 2023-08-21 07:32 | Hospitalist Progress Note ---
Date of Service August 21, 2023 Assessment & Plan (1) Acute and chronic respiratory failure with hypoxia: Plan: Sepsis present on admission as well as acute and chronic respiratory failure with hypoxia also present on admission due to multifocal pneumonia -initially on 4-5L O2, improved now on 3L -afebrile, WBC 13-->11, procal 6.77-->2.4 -at baseline has prescription for 2L home O2 but not using consistently per her daughter -also may have underlying MARCOS - daughter reports witnessing apnea events - however her polypharmacy could be triggering these as well -continue supplemental O2 with sat goal 88-92%, is at risk of CO2 retention, mildly hypercarbic on vbg at 55, asterixis resolved and fully alert now -continue treatment for acute exacerbation of COPD, air movement much improved. solumedrol 125 mg IV in ED, continue prednisone 20 mg daily -continue bronchodilators -continue treatment for pneumonia -significantly improved (2) Pneumonia: Plan: Multifocal pneumonia with underlying COPD and recent COVID-19, at risk for gram- negative pneumonia -procalcitonin significantly elevated improved, COVID no longer positive (had 2 weeks [employer]) -contiue cefepime, continue azithromycin - 3rd dose is tonight -IS, flutter valve ordered (3) Blood culture positive for microorganism: Plan: alpha strep, not S. pneumo or enterococcus. sensis not performed. on appropriate antibiotics -in 1 bottle of 4 from admission, likely strep viridans skin contaminant -repeat blood cultures ordered 08/21 (4) NSTEMI (non-ST elevated myocardial infarction): Plan: Type 2 nstemi - myocardial strain related to sepsis and hypoxia. Underlying CAD with hx [place] x2 with CABG x4 in 2010, known multivessel CAD -initially treated with heparin drip -ST depressions on EKG, troponin peak around 400, downtrended -consulted cardiology discussed with Dr. Martinez. no evidence of ACS, reviewed TTE which is reassuring: previous inferior/basilar wma resolved since past study, EF 55-60% -stopped heparin drip 08/19, continue ASA, statin for her known multivessel CAD -ranexa and verapamil initially held for hypotension and bradycardia -bradycardia and hypotension resolved - now hypertensive, resume ranexa, resume verapamil at decreased dose in AM (5) COPD (chronic obstructive pulmonary disease): Plan: As above Prednisone 20 mg daily Albuterol/ipratropium sched and PRN Continue control inhaler baseline home O2 is 2L (6) Benign essential hypertension: Plan: meds as above (7) Type 2 diabetes mellitus with unspecified complications: Plan: A1c 5.7% not in diabetic range -monitor BG while on steroids - BG reviewed 08/21, mildly elevated -short acting insulin if needed (8) GERD (gastroesophageal reflux disease): Plan: Continue PPI and PRN carafate (9) Anxiety: Plan: anxiety, depression, chronic pain, chronic migraine takes bupropion, duloxetine, lamotrigine, seroquel, gabapentin, buspirone (10) Sepsis: Plan: due to pneumonia present on admission (11) Chronic migraine: Plan: lamotrigine, gabapentin, botox as outpatient (12) CAD, multiple vessel: Plan: see above Plan Mild MARIAN on CKD stage 3 -Cr increased from baseline around 0.8 to 1.2, related to sepsis -euvolemic on TTE 08/19 -Cr more elevated at 1.37, ordered LR x 1 L -normalized today 0.98 Anxiety - continue home buproprion - continue home buspirone Chronic pain, daughter concerned about cognitive changes, polypharmacy, asterixis -reduced gabapentin dose (600-->300) mg tid, reduced seroquel dose (400-->200) -doing very well on this, asterixis resolved and much more alert Urinary retention - manriquez was placed in ED. Will remove for voiding trial now more alert and mobile - ordered dc manriquez, voiding spontaneously Consider outpatient referral for MARCOS evaluation, but apneas observed by family could also be central related to oversedation on medications VTE ppx: enoxaparin 40 SQ daily Disposition: PT/OT eval rec home with HH, anticipate discharge to her daughter's house Tuesday/Tuesday when family arrangements are set Discussed with her daughter at bedside 08/19, by phone 08/21 - we discussed medication dose adjustments and she's in agreement because she's noticed her mom to be oversedated at home Admission and Anticipated Discharge Date Admission Date: August 18, 2023 Subjective continues to improve. has some cough and dyspnea on exertion. says she walked about 20 feet with PT. Up in chair. Physical Exam 2 Physical Exam: PHYSICAL EXAMINATION Last 24h vital signs reviewed, see documentation in flowsheet General: sitting by window, alert HEENT: Normocephalic, atraumatic, pupils round and equal, sclerae anicteric, no conjunctival injection, moist mucus membranes Lungs: comfortable respiratory effort. clear anteriorly. posteriorly mild coarse sounds in bases, mild exp wheezes in bases, improved Heart: Regular rate and rhythm, no murmurs. No JVD Abdomen: Soft, nontender, nondistended. Bowel sounds present. Extremities: Warm, dry, well-perfused. No extremity edema. Neuro: Alert and oriented x 4, face symmetric, moves 4 extremities well, no tremor or asterixis Psych: Normal affect and behavior Results & Data Results & Data Vital Signs (Past 12 Hours) Vital Signs Temp Pulse Resp BP Pulse Ox O2 Del Method O2 Flow Rate 08/21/23 03:57 36.5 C 75 16 143/77 H 93 08/20/23 22:58 36.7 C 90 18 119/62 94 08/20/23 22:00 80 08/20/23 21:30 Nasal Cannula 3 Laboratory Results 08/21/23 05:44 08/21/23 05:44 PG Care Time/CCT Total # of Minutes Spent Total Time Spent with Patient: Total time spent is greater than 50% in coordination of care (as documented) at patient's floor/unit and/or counseling patient: Coding Level of Care Code 92735 SUB INP/OBS CARE 2/35MIN Diagnoses Acute and chronic respiratory failure with hypoxia J96.21 Pneumonia J18.9 Blood culture positive for microorganism R79.89 NSTEMI (non-ST elevated myocardial infarction) I21.4 COPD (chronic obstructive pulmonary disease) J44.9 Benign essential hypertension I10 Type 2 diabetes mellitus with unspecified complications E11.8 GERD (gastroesophageal reflux disease) K21.9 Anxiety F41.9 Sepsis A41.9 Chronic migraine CAD, multiple vessel I25.10
[2023-08-21] MEDS: traMADol HCL 50 MG TABLET PO PRN ×2 (08:31→19:17)
[2023-08-21] MEDS: CEFEPIME 2,000 MG in SYRINGE 0 ML IV SCH ×2 (08:31→19:55)
[2023-08-21] MEDS: busPIRone 5 MG TAB PO SCH ×2 (08:32→20:01)
[2023-08-21] MEDS: guaiFENesin 600 MG TABCR PO SCH ×2 (08:32→19:59)
[2023-08-21] MEDS: GABAPENTIN 600 MG TAB PO SCH ×3 (08:32→20:00)
[2023-08-21] MEDS: predniSONE 20 MG TAB PO SCH (08:33)
[2023-08-21] MEDS: PANTOprazole 40 MG TAB PO SCH ×2 (08:33→19:56)
[2023-08-21] MEDS: lamoTRIgine 100 MG TAB PO SCH ×2 (08:33→19:58)
[2023-08-21] MEDS: buPROPion XL 150 MG TABCR PO SCH (08:33)
[2023-08-21] MEDS: UMECLIDINIUM/VILANTEROL 62.5/25MCG 7 PUFFS/INHALER INH SCH (08:34)
[2023-08-21] MEDS: ENOXAPARIN INJ 40 MG/0.4 ML SYR SQ SCH (08:34)
[2023-08-21] MEDS: DULoxetine HCL 30 MG CAP PO SCH (08:34)
[2023-08-21] MEDS: ASPIRIN 81 MG ECTAB PO SCH (08:34)
[2023-08-21] MEDS: RANOLAZINE 500 MG ER TAB PO SCH (19:56)
[2023-08-21] MEDS: QUEtiapine FUMARATE 200 MG TAB PO SCH (19:56)
[2023-08-21] MEDS: MAGNESIUM OXIDE 400 MG TAB PO SCH (19:57)
[2023-08-21] MEDS: ATORVASTATIN 40 MG TAB PO SCH (20:02)
[2023-08-21] MEDS: BACLOFEN 10 MG TAB PO SCH (20:11)
[2023-08-21] MEDS: AZITHROMYCIN 500 MG in DEXTROSE 5% 250 ML IV SCH (21:23)
[2023-08-22 06:56] LABS: Calcium 8.9 mg/dl (8.6-10.3); Creatinine Clr Calc Pharmacy 52.7 ml/min; Est GFR (Non-African American) 55.2 ml/min; Potassium 3.8 mmol/L (3.5-5.1)
[2023-08-22] MEDS: CEFEPIME 2,000 MG in SYRINGE 0 ML IV SCH (08:00)
[2023-08-22] MEDS: buPROPion XL 150 MG TABCR PO SCH (08:01)
[2023-08-22] MEDS: PANTOprazole 40 MG TAB PO SCH ×2 (08:02→20:14)
[2023-08-22] MEDS: DULoxetine HCL 30 MG CAP PO SCH ×2 (08:02→09:43)
[2023-08-22] MEDS: busPIRone 5 MG TAB PO SCH ×2 (08:02→20:12)
[2023-08-22] MEDS: guaiFENesin 600 MG TABCR PO SCH ×2 (08:02→20:13)
[2023-08-22] MEDS: predniSONE 20 MG TAB PO SCH (08:02)
[2023-08-22] MEDS: RANOLAZINE 500 MG ER TAB PO SCH ×2 (08:02→20:13)
[2023-08-22] MEDS: ASPIRIN 81 MG ECTAB PO SCH (08:02)
[2023-08-22] MEDS: ENOXAPARIN INJ 40 MG/0.4 ML SYR SQ SCH (08:03)
[2023-08-22] MEDS: UMECLIDINIUM/VILANTEROL 62.5/25MCG 7 PUFFS/INHALER INH SCH (08:03)
[2023-08-22] MEDS: GABAPENTIN 600 MG TAB PO SCH ×3 (08:03→20:14)
[2023-08-22] MEDS: lamoTRIgine 100 MG TAB PO SCH ×2 (08:04→20:12)
[2023-08-22] MEDS: ACETAMINOPHEN 325 MG TAB PO PRN ×2 (09:35→16:43)
[2023-08-22] MEDS: traMADol HCL 50 MG TABLET PO PRN ×2 (11:27→20:11)
[2023-08-22] MEDS ORDERED: PROCHLORPERAZINE MALEATE 5 MG TAB PO ONE (12:46)
[2023-08-22] MEDS ORDERED: HYDROcodone/ACETAMINOPHEN 10/325 TAB PO ONE (12:47)
--- NOTE | 2023-08-22 15:32 | Hospitalist Progress Note ---
Date of Service August 22, 2023 Assessment & Plan (1) Acute and chronic respiratory failure with hypoxia: Plan: Sepsis present on admission as well as acute and chronic respiratory failure with hypoxia also present on admission due to multifocal pneumonia -initially on 4-5L O2, improved now on 2L which is her baseline home O2 -afebrile, WBC 13-->11, procal 6.77-->2.4 -also may have underlying MARCOS - daughter reports witnessing apnea events - however her polypharmacy could be triggering these as well -continue supplemental O2 with sat goal 88-92%, is at risk of CO2 retention, mildly hypercarbic on admission vbg at 55, asterixis resolved and fully alert now -continue treatment for acute exacerbation of COPD, air movement much improved. solumedrol 125 mg IV in ED, continue prednisone 20 mg daily - day 4, consider stopping after tomorrow -continue bronchodilators -continue treatment for pneumonia -significantly improved (2) Pneumonia: Plan: Multifocal pneumonia with underlying COPD and recent COVID-19, at risk for gram- negative pneumonia -procalcitonin significantly elevated improved, COVID no longer positive (had 2 weeks [employer]) -treated with cefepime - changed to cefuroxime to complete 7d course (end 08/24), completed 3 x 500 mg doses of azithromycin -IS, flutter valve ordered (3) Blood culture positive for microorganism: Plan: alpha strep, not S. pneumo or enterococcus. sensis not performed. on appropriate antibiotics -in 1 bottle of 4 from admission, likely strep viridans skin contaminant -repeat blood cultures ordered 08/21 - NGTD at 24h (4) NSTEMI (non-ST elevated myocardial infarction): Plan: Type 2 nstemi - myocardial strain related to sepsis and hypoxia. Underlying CAD with hx [place] x2 with CABG x4 in 2010, known multivessel CAD -initially treated with heparin drip -ST depressions on EKG, troponin peak around 400, downtrended -consulted cardiology discussed with Dr. Martinez. no evidence of ACS, reviewed TTE which is reassuring: previous inferior/basilar wma resolved since past study, EF 55-60% -stopped heparin drip 08/19, continue ASA, statin for her known multivessel CAD -ranexa and verapamil initially held for hypotension and bradycardia -bradycardia and hypotension resolved - now hypertensive, resumed ranexa and resumed verapamil at decreased 08/22 (5) COPD (chronic obstructive pulmonary disease): Plan: in acute exacerbation Prednisone 20 mg daily Albuterol/ipratropium sched and PRN Continue control inhaler baseline home O2 is 2L (6) Benign essential hypertension: Plan: meds as above (7) Type 2 diabetes mellitus with unspecified complications: Plan: A1c 5.7% not in diabetic range -monitor BG while on steroids - BG reviewed 08/22, at goal -short acting insulin if needed (8) GERD (gastroesophageal reflux disease): Plan: Continue PPI and PRN carafate (9) Anxiety: Plan: anxiety, depression, chronic pain, chronic migraine takes bupropion, duloxetine, lamotrigine, seroquel, gabapentin, buspirone (10) Sepsis: Plan: due to pneumonia present on admission (11) Chronic migraine: Plan: lamotrigine, gabapentin, botox as outpatient acute migraine 08/22. NR to apap and tramadol -ordered norco x 1 and compazine po x 1 -if ineffective will order IV depakote 500 mg x 1 and IV antiemetic (12) CAD, multiple vessel: Plan: see above Plan Mild MARIAN on CKD stage 3 -Cr increased from baseline around 0.8 to max 1.37, related to sepsis -euvolemic on TTE 08/19 -resolved after IV fluids and treatment of infection Anxiety - continue home buproprion - continue home buspirone Chronic pain, daughter concerned about cognitive changes, polypharmacy, asterixis at time of admission -reduced gabapentin dose (600-->300) mg tid, reduced seroquel dose (400-->200) -doing very well on this, asterixis resolved and much more alert Urinary retention - manriquez was placed in ED. discontinued, voiding spontaneously Consider outpatient referral for MARCOS evaluation, but apneas observed by family could also be central related to oversedation on medications VTE ppx: enoxaparin 40 SQ daily Disposition: PT/OT eval rec home with HH, anticipate discharge to her daughter's house Tuesday/Tuesday when family arrangements are set Discussed with her daughter at bedside 08/19, by phone 08/21 - we discussed medication dose adjustments and she's in agreement because she's noticed her mom to be oversedated at home Admission and Anticipated Discharge Date Admission Date: August 18, 2023 Subjective Doing well with respect to pneumonia - coughing better, not short of breath. Today has severe headache typical of her usual migraine associated with nausea. Not relieved after APAP and tramadol. Physical Exam 2 Physical Exam: PHYSICAL EXAMINATION Last 24h vital signs reviewed, see documentation in flowsheet General: lying on side inbed dark room HEENT: Normocephalic, atraumatic, pupils round and equal, sclerae anicteric, no conjunctival injection, moist mucus membranes Lungs: comfortable respiratory effort. clear anteriorly. posteriorly slightly coarse in bases and diminished but no wheezing Heart: Regular rate and rhythm, no murmurs. No JVD Abdomen: Soft, nontender, nondistended. Bowel sounds present. Extremities: Warm, dry, well-perfused. No extremity edema. Neuro: Alert and oriented x 4, face symmetric, moves 4 extremities well, no tremor or asterixis Psych: Normal affect and behavior Results & Data Results & Data Vital Signs (Past 12 Hours) Vital Signs Temp Pulse Pulse Resp BP Pulse Ox O2 Del Method 08/22/23 15:15 90 08/22/23 11:23 37 C 97 H 18 168/74 H 93 Nasal Cannula 08/22/23 08:16 Nasal Cannula 08/22/23 07:55 87 08/22/23 07:16 37 C 91 H 18 142/75 H 91 Nasal Cannula 08/22/23 04:08 36.9 C 85 18 132/68 92 Nasal Cannula O2 Flow Rate 08/22/23 15:15 08/22/23 11:23 2 08/22/23 08:16 3 08/22/23 07:55 08/22/23 07:16 1 08/22/23 04:08 2 Laboratory Results 08/21/23 05:44 08/22/23 05:54 PG Care Time/CCT Total # of Minutes Spent Total Time Spent with Patient: Total time spent is greater than 50% in coordination of care (as documented) at patient's floor/unit and/or counseling patient: Coding Level of Care Code 11244 SUB INP/OBS CARE 2/35MIN Diagnoses Acute and chronic respiratory failure with hypoxia J96.21 Pneumonia J18.9 Blood culture positive for microorganism R79.89 NSTEMI (non-ST elevated myocardial infarction) I21.4 COPD (chronic obstructive pulmonary disease) J44.9 Benign essential hypertension I10 Type 2 diabetes mellitus with unspecified complications E11.8 GERD (gastroesophageal reflux disease) K21.9 Anxiety F41.9 Sepsis A41.9 Chronic migraine CAD, multiple vessel I25.10
[2023-08-22] MEDS: QUEtiapine FUMARATE 200 MG TAB PO SCH (20:12)
[2023-08-22] MEDS: MAGNESIUM OXIDE 400 MG TAB PO SCH (20:13)
[2023-08-22] MEDS: cefUROXime axetil 500 MG TAB PO SCH (20:14)
[2023-08-22] MEDS: ATORVASTATIN 40 MG TAB PO SCH (20:15)
[2023-08-22] MEDS: VERAPAMIL HCL 180 MG TABCR PO SCH (20:15)
[2023-08-22] MEDS: BACLOFEN 10 MG TAB PO SCH (20:16)
[2023-08-23] MEDS: DULoxetine HCL 30 MG CAP PO SCH (08:35)
[2023-08-23] MEDS: ENOXAPARIN INJ 40 MG/0.4 ML SYR SQ SCH (08:35)
[2023-08-23] MEDS: lamoTRIgine 100 MG TAB PO SCH ×2 (08:35→21:21)
[2023-08-23] MEDS: PANTOprazole 40 MG TAB PO SCH ×2 (08:36→21:21)
[2023-08-23] MEDS: ASPIRIN 81 MG ECTAB PO SCH (08:36)
[2023-08-23] MEDS: guaiFENesin 600 MG TABCR PO SCH ×2 (08:36→21:21)
[2023-08-23] MEDS: GABAPENTIN 600 MG TAB PO SCH ×3 (08:36→21:21)
[2023-08-23] MEDS: buPROPion XL 150 MG TABCR PO SCH (08:37)
[2023-08-23] MEDS: cefUROXime axetil 500 MG TAB PO SCH ×2 (08:37→21:22)
[2023-08-23] MEDS: predniSONE 20 MG TAB PO SCH (08:37)
[2023-08-23] MEDS: RANOLAZINE 500 MG ER TAB PO SCH ×2 (08:37→21:20)
[2023-08-23] MEDS: busPIRone 5 MG TAB PO SCH ×2 (08:37→21:22)
[2023-08-23] MEDS: UMECLIDINIUM/VILANTEROL 62.5/25MCG 7 PUFFS/INHALER INH SCH (08:37)
[2023-08-23 10:35] LABS: Basophils # (auto) 0.03 K/uL (0.00-0.20); Basophils % (auto) 0.4 %; Eosinophils # (auto) 0.32 K/uL (0.00-0.50); Eosinophils % (auto) 3.9 %; Hematocrit (blood only) 35.9 % (37.0-47.0); Hemoglobin 11.2 g/dl (12.0-16.0); Immature Granulocytes # (auto) 0.17 K/uL (0.01-0.20); Immature Granulocytes % (auto) 2.1 %; Lymphocytes % (auto) 19.6 %; Mean Corpuscular Hemoglobin 27.4 pg (25.0-34.0); Mean Corpuscular Hgb Conc 31.2 g/dL (32.0-36.0); Mean Corpuscular Volume 87.8 fL (80.0-100.0); Mean Platelet Volume 9.3 fL (9.4-12.4); Monocytes # (auto) 0.63 K/uL (0.11-0.59); Monocytes % (auto) 7.7 %; Neutrophils # (auto) 5.41 K/uL (1.40-6.50); Neutrophils % (auto) 66.3 %; Platelet Count 256 K/uL (130-400); RDW Coefficient of Variation 14.3 % (11.5-14.5); RDW Standard Deviation 45.6 fL (36.4-46.3); Red Blood Count 4.09 M/uL (4.20-5.40); White Blood Count 8.16 K/ul (4.8-10.8)
[2023-08-23 10:53] LABS: BUN Creatinine Ratio 19.4 (10-20); Creatinine Clr Calc Pharmacy 52.4 ml/min; Est GFR (African American) 63.3 ml/min; Est GFR (Non-African American) 54.6 ml/min; Magnesium 2.1 mg/dl (1.7-2.4); Potassium 3.7 mmol/L (3.5-5.1)
[2023-08-23 11:07] LABS: Thyroid Stimulating Hormone 1.042 uIu/ml (0.300-4.500)
[2023-08-23 11:13] LABS: Ferritin 33.3 ng/ml (8-388)
--- NOTE | 2023-08-23 11:54 | Hospitalist Progress Note ---
Date of Service August 23, 2023 Assessment & Plan (1) Acute and chronic respiratory failure with hypoxia: Plan: Sepsis present on admission as well as acute and chronic respiratory failure with hypoxia also present on admission due to multifocal pneumonia -initially on 4-5L O2, improved now on 2L which is her baseline home O2 -afebrile, WBC 13-->11, procal 6.77-->2.4 -also may have underlying MARCOS - daughter reports witnessing apnea events - however her polypharmacy could be triggering these as well -continue supplemental O2 with sat goal 88-92%, is at risk of CO2 retention, mildly hypercarbic on admission vbg at 55, asterixis resolved and fully alert now -continue treatment for acute exacerbation of COPD, air movement much improved. solumedrol 125 mg IV in ED, has now completed 5-day course of prednisone 20 mg daily-will stop -continue bronchodilators -continue treatment for pneumonia with antibiotics -significantly improved (2) Pneumonia: Plan: Multifocal community-acquired pneumonia with underlying COPD and recent COVID-19 -procalcitonin significantly elevated and now improved, COVID no longer positive (had 2 weeks [employer]) -treated with cefepime - changed to cefuroxime to complete 7d course (end 08/24), completed 3 day course x 500 mg doses of azithromycin -IS, flutter valve ordered -Start guaifenesin DM 10 mL every 6 hours as needed cough -Follow chest imaging to resolution as an outpatient in 4 to 6 weeks (3) Blood culture positive for microorganism: Plan: alpha strep, not S. pneumo or enterococcus. Sensitivities not performed. on appropriate antibiotics but likely contaminant -in 1 bottle of 4 from admission, likely strep viridans skin contaminant -repeat blood cultures ordered 08/21 -remain no growth to date greater than 48 hours (4) NSTEMI (non-ST elevated myocardial infarction): Plan: Type 2 nstemi - myocardial strain related to sepsis and hypoxia. Underlying CAD with hx [place] x2 with CABG x4 in 2010, known multivessel CAD -initially treated with heparin drip -ST depressions on EKG, troponin peak around 400, downtrended -consulted cardiology discussed with Dr. Martinez. no evidence of ACS, reviewed TTE which is reassuring: previous inferior/basilar wma resolved since past study, EF 55-60% -stopped heparin drip 08/19, continue ASA, statin for her known multivessel CAD -ranexa and verapamil initially held for hypotension and bradycardia but have since been restarted for hypertension -bradycardia and hypotension resolved -No events on telemetry (5) COPD (chronic obstructive pulmonary disease): Plan: in acute exacerbation as noted above Consider outpatient referral for MARCOS evaluation, but apneas observed by family could also be central related to oversedation on medications (6) Benign essential hypertension: Plan: Blood pressure is now controlled Continue verapamil (7) GERD (gastroesophageal reflux disease): Plan: Continue PPI and PRN carafate EGD in 12/2022 with reflux esophagitis with no bleeding, small hiatal hernia, and gastritis (8) Anxiety: Plan: anxiety, depression, chronic pain, chronic migraine takes bupropion, duloxetine, lamotrigine, seroquel, gabapentin, buspirone Her Seroquel dose was reduced to 200 and her gabapentin dose was reduced to 300 Mg 3 times daily due to excessive sedation and polypharmacy Seems to be doing well at these doses (9) Sepsis: Plan: due to pneumonia present on admission-now resolved (10) Chronic migraine: Plan: lamotrigine, gabapentin, botox as outpatient With acute migraine 08/22. NR to apap and tramadol -ordered norco x 1 and compazine po x 1 and now resolved -Continue verapamil for prophylaxis (11) CAD, multiple vessel: Plan: see above (12) Acute kidney injury superimposed on CKD: Plan: Mild MARIAN on CKD stage 3 -Cr increased from baseline around 0.8 to max 1.37, related to sepsis -euvolemic on TTE 08/19 -resolved after IV fluids and treatment of infection (13) Anemia: Plan: Hemoglobin 8.6 down from 11 on admission-some could be dilutional from IV fluids, but baseline anemia, normocytic Checked iron studies-with iron deficiency and ferritin low normal at 33 B12 and folate and TSH normal Start ferrous gluconate 325 Mg p.o. once daily along with docusate 100 Mg p.o. twice daily due to history of constipation Recommend follow-up with GI for possible repeat EGD and colonoscopy as her last colonoscopy had a poor prep and she continues to have GERD symptoms despite Protonix and Carafate Plan Urinary retention - manriquez was placed in ED. discontinued, voiding spontaneously VTE ppx: enoxaparin 40 SQ daily Disposition: PT/OT eval rec home with HH, anticipate discharge to her daughter's house likely Tuesday when family arrangements are set Admission and Anticipated Discharge Date Admission Date: August 18, 2023 Anticipated date of discharge: 08/24/23 Subjective Patient reports still coughing up small amounts of sputum, some shortness of breath but around her baseline. Denies chest pain. She is a chronic issue with constipation and moves her bowels typically every other day. Reports that her migraine from yesterday is now completely resolved She feels like she will be ready for discharge tomorrow Telemetry with normal sinus rhythm with rates in the 70s to 90s Physical Exam Constitutional: WD/WN, vitals as above Respiratory: normal respiratory effort; no cough Auscultation: + crackles (At right base); no rhonchi and no wheezes Cardiovascular: RRR, no murmur, no edema Gastrointestinal (Abdomen): normal bowel sounds, soft, nontender, no hepatosplenomegaly Psychiatric: A+Ox3, euthymic affect Results & Data Results & Data Vital Signs (Past 12 Hours) Vital Signs Temp Pulse Pulse Resp BP Pulse Ox O2 Del Method 08/23/23 11:19 36.9 C 95 H 16 116/78 91 Nasal Cannula 08/23/23 09:53 70 08/23/23 08:45 Nasal Cannula 08/23/23 07:28 36.6 C 76 16 108/66 88 L Nasal Cannula 08/23/23 03:39 36.4 C L 72 16 98/66 L 96 Nasal Cannula 08/22/23 23:54 36.8 C 89 20 111/68 90 Nasal Cannula O2 Flow Rate 08/23/23 11:19 2 08/23/23 09:53 08/23/23 08:45 2 08/23/23 07:28 2 08/23/23 03:39 2 08/22/23 23:54 2 Laboratory Results Blood cultures 08/21 no growth to date Reviewed CBC, BMP, magnesium, iron studies, B12 and folate, TSH PG Care Time/CCT Total # of Minutes Spent Total Time Spent with Patient: Total time spent is greater than 50% in coordination of care (as documented) at patient's floor/unit and/or counseling patient: Coding Level of Care Code 41866 SUB INP/OBS CARE 2/35MIN Diagnoses Acute and chronic respiratory failure with hypoxia J96.21 Pneumonia J18.9 Blood culture positive for microorganism R79.89 NSTEMI (non-ST elevated myocardial infarction) I21.4 COPD (chronic obstructive pulmonary disease) J44.9 Benign essential hypertension I10 GERD (gastroesophageal reflux disease) K21.9 Anxiety F41.9 Sepsis A41.9 Chronic migraine CAD, multiple vessel I25.10 Acute kidney injury superimposed on CKD N17.9; N18.9 Anemia D64.9
[2023-08-23] MEDS ORDERED: guaiFENesin/DEXTROM SYRUP 200MG/20MG 10ML UDC PO PRN (12:37)
[2023-08-23] MEDS ORDERED: guaiFENesin/DEXTROM SYRUP 200MG/20MG 10ML UDC PO STA (12:37)
[2023-08-23] MEDS: FERROUS GLUCONATE 324 MG TAB PO SCH (14:18)
[2023-08-23] MEDS: DOCUSATE SODIUM 100 MG CAP PO SCH ×2 (14:18→21:22)
[2023-08-23] MEDS: VERAPAMIL HCL 180 MG TABCR PO SCH (21:20)
[2023-08-23] MEDS: MAGNESIUM OXIDE 400 MG TAB PO SCH (21:21)
[2023-08-23] MEDS: QUEtiapine FUMARATE 200 MG TAB PO SCH (21:21)
[2023-08-23] MEDS: ATORVASTATIN 40 MG TAB PO SCH (21:22)
[2023-08-23] MEDS: BACLOFEN 10 MG TAB PO SCH (21:24)
[2023-08-24] MEDS: guaiFENesin 600 MG TABCR PO SCH (08:43)
[2023-08-24] MEDS: PANTOprazole 40 MG TAB PO SCH (08:43)
[2023-08-24] MEDS: RANOLAZINE 500 MG ER TAB PO SCH (08:43)
[2023-08-24] MEDS: GABAPENTIN 600 MG TAB PO SCH (08:44)
[2023-08-24] MEDS: ENOXAPARIN INJ 40 MG/0.4 ML SYR SQ SCH (08:45)
[2023-08-24] MEDS: busPIRone 5 MG TAB PO SCH (08:46)
[2023-08-24] MEDS: cefUROXime axetil 500 MG TAB PO SCH (08:46)
[2023-08-24] MEDS: FERROUS GLUCONATE 324 MG TAB PO SCH (08:47)
[2023-08-24] MEDS: DULoxetine HCL 30 MG CAP PO SCH (08:47)
[2023-08-24] MEDS: ASPIRIN 81 MG ECTAB PO SCH (08:47)
[2023-08-24] MEDS: buPROPion XL 150 MG TABCR PO SCH (08:47)
[2023-08-24] MEDS: DOCUSATE SODIUM 100 MG CAP PO SCH (08:48)
[2023-08-24] MEDS: UMECLIDINIUM/VILANTEROL 62.5/25MCG 7 PUFFS/INHALER INH SCH (08:48)
[2023-08-24] MEDS: lamoTRIgine 100 MG TAB PO SCH (08:49)
--- NOTE | 2023-08-24 12:57 | Discharge Summary ---
Discharge Summary Date of Service August 24, 2023 Notes For Next Care Provider Needs repeat CXR in 4-6 weeks to ensure resolution of PNA Follow up with Psychiatry due to reduction in Seroquel dose and gabapentin dose Medication Changes From Visit Reduced Verapamil to 180mg po hs Ceftin 500mg po x 1 more dose on evening of 08/24/23 Reduced Seroquel to 200mg po hs Reduced gabapentin dose to 300mg po tid Admission HPI Per Admitting Provider Pt is a 63 yo female with a past medical history of COPD on 2L O2 at home, CAD with hx [place] x2 with CABG x4 in 2010, hx stroke, DMT2, GERD, and HTN who presents to the hospital on 08/18/23 for SOB. Pt states that she had felt very SOB last night. She states she always feels somewhat SOB with her COPD and wears 2L O2 when at home but not all the time. She states last night her SOB was much worse. No chest pain at the time but she did notice that the past 2 days or so she was getting intermittent episodes of c hest pain to her anterior-left side of the chest and was not associated with any particular time of day or activity. She states she just saw her operating room specialist a few weeks ago and at the time everything looked fine. She states that then this morning she noticed that her oxygen level was around 87% which she normally runs in the low 90s. She states that when she was then walking around today with her daughter, they noticed her oxygen level dropped into the 70s and so she decided to come and be seen. She notes she was sick with COVID 2 weeks ago but most of the symptoms were GI related. She states right now she has not had any chest pain since being here and that her worsened SOB is gone and she is feeling fine. No questions or complaints at this point. Principal Dx & Hospital Course #1 = Principal Diagnosis (1) Acute and chronic respiratory failure with hypoxia: Sepsis present on admission as well as acute and chronic respiratory failure with hypoxia also present on admission due to multifocal community acquired pneumonia -initially on 4-5L O2, improved now on 2L which is her baseline home O2 -afebrile, leukocytosis now resolved, procal 6.77-->2.4 -also may have underlying MARCOS - daughter reports witnessing apnea events - however her polypharmacy could be triggering these as well -med doses reduced -continue supplemental O2 with sat goal 88-92%, is at risk of CO2 retention, mildly hypercarbic on admission vbg at 55, asterixis resolved and fully alert now -received treatment for acute exacerbation of COPD, air movement much improved. solumedrol 125 mg IV in ED, has now completed 5-day course of prednisone 20 mg daily -continue bronchodilators -continue treatment for pneumonia with antibiotics -significantly improved (2) Pneumonia: Multifocal community-acquired pneumonia with underlying COPD and recent COVID-19 -procalcitonin significantly elevated and now improved, COVID no longer positive (had 2 weeks CHANGE COORDINATOR) -treated with cefepime - changed to cefuroxime to complete 7d course (end 08/24), completed 3 day course x 500 mg doses of azithromycin -IS, flutter valve ordered -Follow chest imaging to resolution as an outpatient in 4 to 6 weeks -f/u with PULM in 2-3 weeks (3) Blood culture positive for microorganism: alpha strep, not S. pneumo or enterococcus. Sensitivities not performed. on appropriate antibiotics but likely contaminant -in 1 bottle of 4 from admission, likely strep viridans skin contaminant -repeat blood cultures ordered 08/21 -remain no growth to date greater than 48 hours (4) NSTEMI (non-ST elevated myocardial infarction): Type 2 nstemi - myocardial strain related to sepsis and hypoxia. Underlying CAD with hx [place] x2 with CABG x4 in 2010, known multivessel CAD -initially treated with heparin drip -ST depressions on EKG, troponin peak around 400, downtrended -consulted cardiology discussed with Dr. Martinez. no evidence of ACS, reviewed TTE which is reassuring: previous inferior/basilar wma resolved since past study, EF 55-60% -stopped heparin drip 08/19, continue ASA, statin for her known multivessel CAD -ranexa and verapamil initially held for hypotension and bradycardia but have since been restarted for hypertension -bradycardia and hypotension resolved -No events on telemetry (5) COPD (chronic obstructive pulmonary disease): in acute exacerbation as noted above Consider outpatient referral for MARCOS evaluation, but apneas observed by family could also be central related to oversedation on medications (6) Benign essential hypertension: Blood pressure is now controlled Continue verapamil at lower dose as had hypotension on arrival (7) GERD (gastroesophageal reflux disease): Continue PPI and PRN carafate EGD in 12/2022 with reflux esophagitis with no bleeding, small hiatal hernia, and gastritis Recommend GI f/u as outpt for repeat EGD/colonoscopy once recovered from PNA for ongoing iron deficiency anemia and recurrent GI symptoms (8) Anxiety: anxiety, depression, chronic pain, chronic migraine takes bupropion, duloxetine, lamotrigine, seroquel, gabapentin, buspirone Her Seroquel dose was reduced to 200 and her gabapentin dose was reduced to 300 Mg 3 times daily due to excessive sedation and polypharmacy Seems to be doing well at these doses f/u with Psychiatry as outpt (9) Sepsis: due to pneumonia present on admission-now resolved (10) Chronic migraine: lamotrigine, gabapentin, botox as outpatient With acute migraine 08/22. Not responsive to apap and tramadol -ordered norco x 1 and compazine po x 1 and now resolved -Continue verapamil for prophylaxis but at lower dose of 180mg hs due to hypotension (11) CAD, multiple vessel: see above (12) Acute kidney injury superimposed on CKD: Mild MARIAN on CKD stage 3 -Cr increased from baseline around 0.8 to max 1.37, related to sepsis -euvolemic on TTE 08/19 -resolved after IV fluids and treatment of infection (13) Anemia: Hemoglobin 8.6 down from 11 on admission-some could be dilutional from IV fluids, but baseline anemia, normocytic Checked iron studies-with iron deficiency and ferritin low normal at 33 B12 and folate and TSH normal Started ferrous gluconate 325 Mg p.o. once daily along with docusate 100 Mg p.o. twice daily due to history of constipation Recommend follow-up with GI for possible repeat EGD and colonoscopy as her last colonoscopy had a poor prep and she continues to have GERD symptoms despite Protonix and Carafate Repeat hgb after IVFs stopped back up to 11-so low but improved Fecal occult ordered but not collected prior to discharge Plan Urinary retention - manriquez was placed in ED. discontinued, voiding spontaneously VTE ppx: enoxaparin 40 SQ daily Disposition: PT/OT eval rec home with HH, stable for dc to home today with daughter with whom she will be living Discharge Exam Constitutional WD/WN, vitals as above Respiratory normal respiratory effort; no cough Auscultation: + crackles (At right base); no rhonchi and no wheezes Cardiovascular RRR, no murmur, no edema Gastrointestinal (Abdomen) normal bowel sounds, soft, nontender, no hepatosplenomegaly Psychiatric A+Ox3, euthymic affect Updated Medication List Medication Instructions Recorded Confirmed Type aspirin 81 mg tablet,delayed 81 mg PO HS 07/27/18 08/18/23 History release (Rula Low Dose Aspirin) coenzyme Q10 100 mg capsule (Co 200 mg PO HS 07/27/18 08/18/23 History Q-10) cyanocobalamin (vitamin B-12) 1,000 mcg PO QAM 07/27/18 08/18/23 History 1,000 mcg tablet (Vitamin B-12) melatonin 10 mg tablet 10 mg PO HS 07/27/18 08/18/23 History multivitamin (One Daily 1 tab PO QAM 07/27/18 08/18/23 History Multivitamin tablet) omega 1-juk-ngf-fish oil 1,000 mg 1 cap PO BID 07/27/18 08/18/23 History (120 mg-180 mg) capsule (Fish Oil) duloxetine 30 mg capsule,delayed 30 mg PO QAM 06/04/19 08/18/23 History release (Cymbalta) albuterol sulfate 2.5 mg/3 mL 2.5 mg inhalation Q4H PRN 06/16/19 08/18/23 History (0.083 %) solution for nebulization Shortness Of Breath Or Wheezing gabapentin 600 mg tablet 600 mg PO TID 06/16/19 08/18/23 History atorvastatin 80 mg tablet 80 mg PO QPM 10/04/19 08/18/23 History cholecalciferol (vitamin D3) 25 2,000 unit PO QAM 04/17/20 08/18/23 History mcg (1,000 unit) capsule (Vitamin D3) magnesium oxide 400 mg PO HS 10/30/20 08/18/23 History ascorbic acid (vitamin C) 500 mg 500 mg PO QAM 11/20/20 08/18/23 History tablet (Vitamin C) tramadol 50 mg tablet 100 mg PO Q8H PRN pain 10/01/21 08/18/23 History Cbd Gummies 1 dose PO DAILY PRN Pain 11/04/22 08/18/23 History buspirone 10 mg tablet 10 mg PO BID 11/04/22 08/18/23 History verapamil 360 mg 24 hr 360 mg PO HS #90 caps 11/11/22 08/18/23 Rx capsule,extended release pantoprazole 40 mg tablet,delayed 40 mg PO BID #60 tabs 12/22/22 08/18/23 Rx release nitroglycerin 0.4 mg sublingual 0.4 mg sublingual UD PRN chest 02/17/23 08/18/23 Rx tablet (Nitrostat) pain 30 days #25 tabs albuterol sulfate 90 mcg/actuation 2 puff inhalation Q6H PRN 04/18/23 08/18/23 Rx aerosol inhaler (Ventolin HFA) Shortness Of Breath #8.5 grams rimegepant 75 mg disintegrating 75 mg PO .COMPLEX #8 tabs 05/03/23 08/18/23 Rx tablet (Nurtec ODT) baclofen 10 mg tablet 10 mg PO HS #90 tabs 07/20/23 08/18/23 Rx bupropion HCl 150 mg 24 hr tablet, 150 mg PO QAM 08/18/23 08/18/23 History extended release ibandronate 150 mg tablet 150 mg PO MONTHLY 08/18/23 08/18/23 History lamotrigine 100 mg tablet 150 mg PO QAM 08/18/23 08/18/23 History lamotrigine 200 mg tablet 200 mg PO HS 08/18/23 08/18/23 History nicotine 7 mg/24 hr daily 1 patch transdermal DAILY 08/18/23 08/18/23 History transdermal patch quetiapine 400 mg tablet 400 mg PO HS 08/18/23 08/18/23 History ranolazine 500 mg tablet,extended 500 mg PO BID 08/18/23 08/18/23 History release,12 hr sucralfate 1 gram tablet 1 g PO ACHS PRN Abdominal Pain 08/18/23 08/18/23 History umeclidinium 62.5 mcg-vilanterol 1 inh inhalation QAM 08/18/23 08/18/23 History 25 mcg/actuation powdr for inhalation (Anoro Ellipta) cefuroxime axetil 500 mg tablet 500 mg PO BID #1 tab 08/24/23 Rx gabapentin 300 mg capsule 300 mg PO TID #90 caps 08/24/23 Rx quetiapine 200 mg tablet (Seroquel) 200 mg PO HS #30 tabs 08/24/23 Rx verapamil 180 mg 24 hr 180 mg PO HS #30 caps 08/24/23 Rx capsule,extended release Hospital Stay Data Consultations 08/18/23 20:09 ED Decision to Admit Stat 08/18/23 22:01 Consult Cardiology Routine Diagnostic Imagining Performed 08/18/23 18:14 CT angio chest PE protocol Stat ECHO Pending Results Patient Have Any Pending Studies at Discharge: No Discharge Instructions Given to Patient (Per Discharging Provider) You were admitted for pneumonia and treated with antibiotics and steroids for a COPD exacerbation. You are back to your usual 2L of oxygen and doing better. Please finish out one more dose of the antibiotic this evening. You should have a repeat chest xray in 4-6 weeks to ensure the pneumonia has cleared up. Some of your medication doses were changed due to excessive sedation and you had improvement with these changes. Make sure your Psychiatrist and your PCP are aware of these changes. Your verapamil dose was decreased to 180mg at bedtime due to low blood pressures. You were anemic with iron deficiency and should continue taking an OTC iron pill (Slow Fe might be better tolerated and cause less constipation) along with a stool softener like docusate. Please follow up with GI to see about a repeat EGD and colonoscopy given the ongoing acid reflux symptoms you have in addition to the iron deficiency anemia. Total Time Total Time Spent Total Time Spent (In Minutes): 40 min Coding Level of Care Code 43342 INP/OBS DISCH >30 MIN Diagnoses Acute and chronic respiratory failure with hypoxia J96.21 Pneumonia J18.9 Blood culture positive for microorganism R79.89 NSTEMI (non-ST elevated myocardial infarction) I21.4 COPD (chronic obstructive pulmonary disease) J44.9 Benign essential hypertension I10 GERD (gastroesophageal reflux disease) K21.9 Anxiety F41.9 Sepsis A41.9 Chronic migraine CAD, multiple vessel I25.10 Acute kidney injury superimposed on CKD N17.9; N18.9 Anemia D64.9
[2023-08-24] MEDS ORDERED: GABAPENTIN 300 MG CAP PO SCH (14:00)
== END 2023-08-24 15:23 | disposition home health service (06) | DRG 871 ==
LOC: ED 15:52 → SUATTDRO 20:58 → EDINP 20:58 → 2S 08-19 22:50

== ENCOUNTER 2024-06-26 08:23 | Inpatient (IN) ==
--- NOTE | 2024-06-19 13:43 | Anesthesiology Consultation ---
Date of Service June 19, 2024 Assessment & Plan (1) Encounter for pre-operative examination: - check BSG am DOS. - cardiology office visit 06/15/24 [place]: "...CAD s/p Inferior AZ s/p CABG x 4 Vessels 08/20/2010, s/p Mid Left Circumflex Stent 2009, Carotid Artery Stenoses, Cerebrovascular Disease, Hypertension, Dyslipidemia, COPD/Emphysema, Type 2 Diabetes Mellitus, GERD, Migraine Headaches, Anxiety, and Osteoarthritis who presents today for Preoperative Cardiac Evaluation...to undergo TCAR with Dr. Penaloza on 06/26/24...recent COPD exacerbation and is now finishing up a course of amoxicillin and prednisone, and she did finish a Z-Ezequiel...breathing and wheezing has improved...not having any fevers or chills...relatively sedentary lifestyle..chronic degree of exertional dyspnea. She attributes her chronic dyspnea on exertion to her underlying COPD, but this has been chronic and otherwise stable...Based on her stable exertional tolerance, normal LV systolic function on echocardiogram August 2023, low risk for myocardial ischemia on her Lexiscan Cardiolite October 2022, and the fact that she tolerated total knee arthroplasty without cardiac complications -- patient is an intermediate but an acceptable cardiac risk for her upcoming TCAR. Patient was advised to take her usual doses of Verapamil ER 240 mg, Ranexa 500 mg, Aspirin, and Plavix on the morning of surgery with sips of water. There is no need for further ischemic workup at this time..." - pulmonary office visit 04/11/24 [place]: "...Obstructive lung disease: Patient went back to ICS/Breztri and is doing better. This medication will be refilled. She can continue to use albuterol on an as-needed basis. We discussed pulmonary rehab. The patient is fairly sedentary currently and is willing to consider an exercise program. Will repeat her spirometry today..." - Per hemotherapist on 06/19/24: Patient reports onset of symptoms 06/10/24 and was prescribed azithromycin, amoxicillin and prednisone by PCP, completing courses 06/19/24 when I called patient. She states that symptoms are significantly improving. She was advised that proceeding with surgery will pend evaluation am DOS. She verbalized understanding and will call our office and surgeon if symptoms are not resolved prior to procedure. No COVID testing needed given onset of symptoms more than 10 days from surgery. Chart Review Chart Review: Acceptable Risk for Surgery and Patient NOT seen in Pre Admission Testing History Surgery Operation Date: 06/26/24 10:20 Proposed Procedures p Right Transcarotid Artery Revascularization - Ceferino Penaloza MD Height/Weight Height: 5 ft 3 in Weight: 81.647 kg Allergies Allergy/AdvReac Type Severity Reaction Status Date / Time Iodinated Contrast Media Allergy Intermediate Rash Verified 06/19/24 09:05 nitrofurantoin Allergy Intermediate Hives Verified 06/19/24 09:05 senna Allergy Intermediate Hives Verified 06/19/24 09:05 (From X-Prep), Takes senokot at home Beta-Blockers AdvReac Intermediate Hypotension Verified 06/19/24 09:05 (Beta-Adrenergic Bloc rizatriptan AdvReac Intermediate Nausea and Verified 06/19/24 09:05 Vomiting sumatriptan AdvReac Intermediate Worsened Verified 06/19/24 09:05 Migraine zolpidem AdvReac Intermediate Nightmares Verified 06/19/24 09:05 Medications Home Medications Medication Instructions Recorded Confirmed Last Taken aspirin 81 mg tablet,delayed 81 mg PO HS 07/27/18 06/19/24 08/17/23 release (Rula Low Dose Aspirin) coenzyme Q10 100 mg capsule (Co 200 mg PO HS 07/27/18 06/19/24 08/17/23 Q-10) cyanocobalamin (vitamin B-12) 1,000 mcg PO QAM 07/27/18 06/19/24 08/18/23 1,000 mcg tablet (Vitamin B-12) melatonin 10 mg tablet 10 mg PO HS 07/27/18 06/19/24 08/17/23 multivitamin (One Daily 1 tab PO QAM 07/27/18 06/19/24 08/18/23 Multivitamin tablet) omega 4-uxu-zgi-fish oil 1,000 mg 1 cap PO BID 07/27/18 06/19/24 08/18/23 (120 mg-180 mg) capsule (Fish Oil) duloxetine 30 mg capsule,delayed 30 mg PO QAM 06/04/19 06/19/24 08/18/23 release (Cymbalta) albuterol sulfate 2.5 mg/3 mL 2.5 mg inhalation Q4H PRN 11/04/2606/19/24 01/03/23 16:00 (0.083 %) solution for nebulization Shortness Of Breath Or Wheezing atorvastatin 80 mg tablet (Lipitor) 80 mg PO QPM 10/04/19 06/19/24 08/17/23 cholecalciferol (vitamin D3) 25 2,000 unit PO QAM 04/17/20 06/19/24 08/18/23 mcg (1,000 unit) capsule (Vitamin D3) magnesium oxide 400 mg PO HS 10/30/20 06/19/24 08/17/23 tramadol 50 mg tablet 100 mg PO Q8H PRN Pain 10/01/21 06/19/24 12/31/22 10:00 Cbd Gummies 1 dose PO DAILY PRN Pain 11/04/22 06/19/24 01/03/23 20:00 buspirone 10 mg tablet 10 mg PO BID 11/04/22 06/19/24 08/18/23 am dose pantoprazole 40 mg tablet,delayed 40 mg PO BID #60 tabs 12/22/22 06/19/24 08/18/23 release am dose nitroglycerin 0.4 mg sublingual 0.4 mg sublingual UD PRN chest 02/17/23 06/19/24 Unknown tablet (Nitrostat) pain 30 days #25 tabs baclofen 10 mg tablet 10 mg PO HS #90 tabs 07/20/23 06/19/24 08/17/23 bupropion HCl 150 mg 24 hr tablet, 150 mg PO QAM 08/18/23 06/19/24 08/18/23 extended release (Wellbutrin XL) ibandronate 150 mg tablet 150 mg PO MONTHLY 08/18/23 06/19/24 Unknown lamotrigine 100 mg tablet 150 mg PO QAM 08/18/23 06/19/24 08/18/23 (Lamictal) lamotrigine 200 mg tablet 200 mg PO HS 08/18/23 06/19/24 08/17/23 (Lamictal) ferrous gluconate 324 mg (38 mg 324 mg PO QAM #30 tabs 08/24/23 06/19/24 Unknown iron) tablet quetiapine 200 mg tablet (Seroquel) 200 mg PO HS #30 tabs 08/24/23 06/19/24 Unknown verapamil 240 mg 24 hr 240 mg PO DAILY #90 caps 12/14/23 06/19/24 Unknown capsule,extended release albuterol sulfate 90 mcg/actuation 2 puff inhalation Q6H PRN 04/11/24 06/19/24 Unknown aerosol inhaler (Ventolin HFA) Shortness Of Breath #8.5 grams budesonide 160 mcg-glycopyr 9 2 inh inhalation BID #10.7 grams 04/11/24 06/19/24 Unknown mcg-formot 4.8 mcg/actuation HFA inhaler (Breztri Aerosphere) docusate sodium 100 mg capsule 100 mg PO DAILY PRN Constipation 05/01/24 06/19/24 Unknown gabapentin 300 mg capsule 300 mg PO BID 05/01/24 06/19/24 Unknown (Neurontin) sucralfate 1 gram tablet See Rx Instructions .Route 05/29/24 06/19/24 Unknown .COMPLEX #360 tabs ranolazine 500 mg tablet,extended 500 mg PO BID #180 tabs 06/06/24 06/19/24 Unknown release,12 hr clopidogrel 75 mg tablet (Plavix) 75 mg PO QAM 06/15/24 06/19/24 Unknown rimegepant 75 mg disintegrating 75 mg PO .COMPLEX PRN Migraines 06/19/24 06/19/24 Unknown tablet (Nurtec ODT) Past Medical History Medical History (Updated 06/19/24 @ 14:48 by Jodie Marley PA-C) Antiplatelet or antithrombotic long-term use clopidogrel Anxiety Asthma Dr Gay Bilateral carotid artery disease follows with Dr. Joya > 70% R/L ICA stenosis per 04/2022 carotid doppler, unchanged compared to 06/2021 per report. Repeat imaging in one year recommended per [facility] [place] Bilateral lumbar radiculopathy Cauda equina syndrome Per remote records, pt unaware Colon polyp Hx COPD (chronic obstructive pulmonary disease) Dr Gay - most recent exacerbation 06/12/24 Coronary artery disease 2010 > stent CABG x4 (2010) 2010 > stent Depression Dyslipidemia Esophageal dysphagia "somtimes" GERD (gastroesophageal reflux disease) Heart attack hx - 2009 > stent 2010 > stent History of blood transfusion "with all my surgies I have needed a transfusion" History of COVID-19 08/2023 - [facility] IP "for a week" with Pneumonia and Sepsis > resolved at this time History of home oxygen therapy 2L O2 HS/PRN History of pneumonia 08/2023 - [facility] IP "for a week" with Covid and Sepsis HTN (hypertension) Hx of chest pain pt denies any issues at this time Hx of sepsis 08/2023 - [facility] IP "for a week" with Covid and Pneumonia IBS (irritable bowel syndrome) Kidney stones multiple & currently in Left Kidney Low back problem Lymphedema pt denies at this time Migraine with aura and without status migrainosus, not intractable "a few a month" PTSD (post-traumatic stress disorder) Follows with psych + counselor Some short-term and long-term memory issues (undetermined if r/t PTSD per patient) Radicular pain of lumbosacral region Restless legs syndrome Sciatica Seasonal allergies Transient ischemic attack (TIA) "mini strokes" Several years ago, Follows with [facility] neuro (Dr. Ordaz) Type 2 diabetes mellitus Past Family History Family History Daughter Atrial septal defect Son Atrial septal defect Sister Crohn's disease Family history of [place] (myocardial infarction) Cancer Mother Cervical cancer Father Diabetes Coronary heart disease Cancer Brother Nephroblastoma Cancer Grandmother (Maternal) Diabetes Grandmother (Paternal) Diabetes Other No family history of adverse response to anesthesia No significant family history Past Surgical History Surgical History (Updated 06/19/24 @ 13:31 by Jodie Marley PA-C) H/O heart bypass surgery CABG X4 (08/2010) H/O unilateral salpingectomy History of back surgery x6 Lumbar History of cardiac cath 2009 > stent 2010 > stent History of section x1 History of cholecystectomy History of colonoscopy History of ectopic r/t tubal History of hysterectomy History of lithotripsy History of right knee surgery History of shoulder surgery Right History of total knee replacement Right S/P epidural steroid injection caudal epidural steroid injection Social History Smoking Status: Current every day smoker tobacco type: cigarettes Do You Dip or Chew Tobacco: No Hx Alcohol Use: No Hx Substance Use: No substance use type: does not use Lab Results Anesthesia Preop Results Results Anesthesia Widget: WBC 6.93 K/ul (4.8-10.8) 06/19/24 Hgb 14.1 g/dl (12.0-16.0) 06/19/24 Hct 42.3 % (37.0-47.0) 06/19/24 Plt 264 K/uL (130-400) 06/19/24 Na 142 mmol/L (136-145) 06/19/24 K 3.5 mmol/L (3.5-5.1) 06/19/24 Cl 104 mmol/L (98-107) 06/19/24 CO2 30 mmol/L (21-32) 06/19/24 BUN 19 mg/dl (6-23) 06/19/24 Creat 1.23 mg/dl (0.6-1.2) H 06/19/24 Glucose Level 107 mg/dl (70-99(Fasting)) H 06/19/24 PT 10.1 Seconds (9.0-12.0) 06/19/24 PTT 21 Seconds (21-31) 06/19/24 INR 0.9 (0.9-1.1) 06/19/24 Blood Type A Positive 06/19/24 Antibody Screen NEGATIVE 06/19/24 Testing Electrocardiogram Date: 12/14/23 NSR, rate [address] & T wave abnormality, consider anterolateral ischemia Chest X-Ray Date: 06/12/24 No acute abnormalities. No interval changes were noted in comparison with 08/18/2023. Prior sternotomy and vertebroplasty were noted in a lower thoracic vertebra. Echocardiogram Date: 08/19/23 EF 55-60% No LV regional wall motion abnormalities Moderately dilated RV Mildly reduced RV systolic function Mild to moderate mitral regurgitation Moderately dilated LA RVSP elevated at 30-40 mmHg Stress Test Date: 12/08/22 1. Raw data analysis demonstrates increased GI uptake, increased liver uptake, and minimal breast attenuation. This is a good quality study. 2. Gated myocardial perfusion imaging demonstrates normal EF calculated at 59%. There was mild hypokinesis of the basal and mid anterior septum, anterior, and anterolateral myocardium. 3. There is a medium in size, mild to moderate intensity, almost entirely fixed myocardial perfusion defect involving the apex, mid to distal anterior, anteroseptal, and the lateral myocardium. These findings are consistent with myocardial infarction with minimal demetrius-infarct ischemia. 4. This study is moderately abnormal. Low risk for ischemia. Pulmonary Function Test Date: 04/13/24 Moderate airflow obstruction Other Testing Neck CTA 02/22/24 Interval worsening of bilateral carotid stenosis, now with approximately 80% stenosis bilaterally. Carotid doppler 12/14/23 > 70% stenosis ICAs bilat > 50% stenosis left ECA Chest CTA 08/18/23 1. There is no evidence of pulmonary embolus in the main, lobar, or segmental pulmonary arteries. 2. Findings are consistent with multifocal pneumonia, right lung greater than left. Clinical correlation will be required and radiographic follow-up to resolution is recommended. 3. Mild emphysema. 4. Mildly enlarged mediastinal and hilar lymph nodes are likely reactive. 5. Additional findings as above.
[2024-06-26] MEDS: LACTATED RINGER'S 1,000 ML IV SCH ×2 (09:40→17:32)
--- NOTE | 2024-06-26 10:40 | History & Physical Report ---
Date of Service June 26, 2024 Assessment & Plan (1) Stenosis of right carotid artery: Plan: Patient admitted for a right tcar. I have discussed the risks options and benefits of the procedure with the patient. The patient understands the risks options and benefits and agrees to the procedure. History of Present Illness Chief Complaint: Bilateral carotid artery stenosis Primary Care Provider: Kailee Lam Ms. Monroy is an elderly female who presents to Dr[facility] today as a new patient in consultation for bilateral ICA stenosis noted on recent imaging. Patient states that she has seen her clinical care manager who sends her for annual carotid ultrasounds for the past 7 or 8 years. She states that he notified her after her last carotid ultrasound that things appeared worse and he was going to center for further testing. He sent her for a CTA, which indicated about 70 to 80% stenosis, and referred her to Dr. Penaloza for evaluation. Patient states that she did have some "mini strokes" but this was many years ago. She denies any recent symptoms of amaurosis, unilateral extremity weakness numbness or tingling, difficulty speaking or swallowing, facial droop, sudden onset confusion. She does state that she feels her health has overall deteriorated over the past 10 years or so, and more recently since she had a myocardial infarction in August 31. She states that she is able to perform her own self-care at home, and able to make a simple meal for herself and, but states that she no longer drives, and requires her daughter and/or her sister to drive her around. She no longer does shopping on her own, and even has had her sister stay with her to be her pulmonology physician and help her with cleaning and laundry and household activities. She does state that ambulating across her house makes her slightly short of breath, but that if she had to go upstairs she would definitely be short of breath. She said that she has suffered from migraines for many years, and will sometimes feel some tingling in her hands and arms bilaterally when this occurs. She denies headache currently, fever, chest pain, shortness of breath, bone pain, nausea, vomiting, rest pain, claudication, nonhealing wounds or ulcers, other complaints. Allergies Allergy/AdvReac Type Severity Reaction Status Date / Time Iodinated Contrast Media Allergy Intermediate Rash Verified 06/26/24 09:00 nitrofurantoin Allergy Intermediate Hives Verified 06/26/24 09:00 senna Allergy Intermediate Hives Verified 06/26/24 09:00 (From X-Prep), Takes senokot at home Beta-Blockers AdvReac Intermediate Hypotension Verified 06/26/24 09:00 (Beta-Adrenergic Bloc rizatriptan AdvReac Intermediate Nausea and Verified 06/26/24 09:00 Vomiting sumatriptan AdvReac Intermediate Worsened Verified 06/26/24 09:00 Migraine zolpidem AdvReac Intermediate Nightmares Verified 06/26/24 09:00 Home Medications Medication Instructions Recorded Confirmed Type aspirin 81 mg tablet,delayed 81 mg PO HS 07/27/18 06/26/24 History release (Rula Low Dose Aspirin) coenzyme Q10 100 mg capsule (Co 200 mg PO HS 07/27/18 06/26/24 History Q-10) cyanocobalamin (vitamin B-12) 1,000 mcg PO QAM 07/27/18 06/26/24 History 1,000 mcg tablet (Vitamin B-12) melatonin 10 mg tablet 10 mg PO HS 07/27/18 06/26/24 History multivitamin (One Daily 1 tab PO QAM 07/27/18 06/26/24 History Multivitamin tablet) omega 7-gsw-qiv-fish oil 1,000 mg 1 cap PO BID 07/27/18 06/26/24 History (120 mg-180 mg) capsule (Fish Oil) duloxetine 30 mg capsule,delayed 30 mg PO QAM 06/04/19 06/26/24 History release (Cymbalta) albuterol sulfate 2.5 mg/3 mL 2.5 mg inhalation Q4H PRN 06/16/19 06/26/24 History (0.083 %) solution for nebulization Shortness Of Breath Or Wheezing atorvastatin 80 mg tablet (Lipitor) 80 mg PO QPM 10/04/19 06/26/24 History cholecalciferol (vitamin D3) 25 2,000 unit PO QAM 04/17/20 06/26/24 History mcg (1,000 unit) capsule (Vitamin D3) magnesium oxide 400 mg PO HS 10/30/20 06/26/24 History tramadol 50 mg tablet 100 mg PO Q8H PRN Pain 10/01/21 06/26/24 History buspirone 10 mg tablet 10 mg PO BID 11/04/22 06/26/24 History pantoprazole 40 mg tablet,delayed 40 mg PO BID #60 tabs 12/22/22 06/26/24 Rx release nitroglycerin 0.4 mg sublingual 0.4 mg sublingual UD PRN chest 02/17/23 06/26/24 Rx tablet (Nitrostat) pain 30 days #25 tabs baclofen 10 mg tablet 10 mg PO HS #90 tabs 07/20/23 06/26/24 Rx bupropion HCl 150 mg 24 hr tablet, 150 mg PO QAM 08/18/23 06/26/24 History extended release (Wellbutrin XL) ibandronate 150 mg tablet 150 mg PO MONTHLY 08/18/23 06/26/24 History lamotrigine 100 mg tablet 150 mg PO QAM 08/18/23 06/26/24 History (Lamictal) lamotrigine 200 mg tablet 200 mg PO HS 08/18/23 06/26/24 History (Lamictal) ferrous gluconate 324 mg (38 mg 324 mg PO QAM #30 tabs 08/24/23 06/26/24 Rx iron) tablet quetiapine 200 mg tablet (Seroquel) 200 mg PO HS #30 tabs 08/24/23 06/26/24 Rx verapamil 240 mg 24 hr 240 mg PO DAILY #90 caps 12/14/23 06/26/24 Rx capsule,extended release albuterol sulfate 90 mcg/actuation 2 puff inhalation Q6H PRN 04/11/24 06/26/24 Rx aerosol inhaler (Ventolin HFA) Shortness Of Breath #8.5 grams budesonide 160 mcg-glycopyr 9 2 inh inhalation BID #10.7 grams 04/11/24 06/26/24 Rx mcg-formot 4.8 mcg/actuation HFA inhaler (Breztri Aerosphere) docusate sodium 100 mg capsule 100 mg PO DAILY PRN Constipation 05/01/24 06/26/24 History gabapentin 300 mg capsule 300 mg PO BID 05/01/24 06/26/24 History (Neurontin) ranolazine 500 mg tablet,extended 500 mg PO BID #180 tabs 06/06/24 06/26/24 Rx release,12 hr clopidogrel 75 mg tablet (Plavix) 75 mg PO QAM 06/15/24 06/26/24 History rimegepant 75 mg disintegrating 75 mg PO .COMPLEX PRN Migraines 06/19/24 06/26/24 History tablet (Nurtec ODT) prednisone 50 mg tablet 50 mg PO Q8 06/26/24 06/26/24 History sucralfate 1 gram tablet (Carafate) See Rx Instructions .Route .COMPLEX 06/26/24 06/26/24 History Past Med/Surg History Problem List (Updated 06/26/24 @ 10:40 by Ceferino Penaloza MD) Stenosis of right carotid artery Encounter for pre-operative examination Anemia (Chronic) CAD, multiple vessel Chronic migraine GERD (gastroesophageal reflux disease) History of colon polyps On home oxygen therapy 2L N/C prn Failed back syndrome of lumbar spine Bilateral lumbar radiculopathy Anxiety (Acute) Type 2 diabetes mellitus with unspecified complications (Acute 06/22/11) pt denies Bilateral carotid artery disease Antiplatelet or antithrombotic long-term use Emphysema of lung Follows with Dr. Gay Dyslipidemia Benign essential hypertension Medical History Type 2 diabetes mellitus Hx of sepsis 08/2023 - [facility] IP "for a week" with Covid and Pneumonia History of pneumonia 08/2023 - [facility] IP "for a week" with Covid and Sepsis Hx of chest pain pt denies any issues at this time Dyslipidemia Bilateral lumbar radiculopathy Asthma Dr Gay HTN (hypertension) COPD (chronic obstructive pulmonary disease) Dr Gay - most recent exacerbation 06/12/24 Anxiety Antiplatelet or antithrombotic long-term use clopidogrel History of blood transfusion "with all my surgies I have needed a transfusion" Esophageal dysphagia "somtimes" History of home oxygen therapy 2L O2 HS/PRN History of COVID-19 08/2023 - [facility] IP "for a week" with Pneumonia and Sepsis > resolved at this time Bilateral carotid artery disease follows with Dr. Joya > 70% R/L ICA stenosis per 04/2022 carotid doppler, unchanged compared to 06/2021 per report. Repeat imaging in one year recommended per [facility] [place] IBS (irritable bowel syndrome) Kidney stones multiple & currently in Left Kidney Low back problem PTSD (post-traumatic stress disorder) Follows with psych + counselor Some short-term and long-term memory issues (undetermined if r/t PTSD per patient) Seasonal allergies Sciatica Colon polyp Hx Depression Lymphedema pt denies at this time Restless legs syndrome GERD (gastroesophageal reflux disease) Migraine with aura and without status migrainosus, not intractable "a few a month" Radicular pain of lumbosacral region Transient ischemic attack (TIA) "mini strokes" Several years ago, Follows with [facility] neuro (Dr. Ordaz) Heart attack hx - 2009 > stent 2011 > stent Coronary artery disease 2010 > stent CABG x4 (2010) 2011 > stent Cauda equina syndrome Per remote records, pt unaware Surgical History History of cardiac cath 2009 > stent 2011 > stent S/P epidural steroid injection caudal epidural steroid injection H/O unilateral salpingectomy History of colonoscopy History of back surgery x6 Lumbar History of right knee surgery History of lithotripsy History of ectopic r/t tubal History of shoulder surgery Right History of hysterectomy History of section x1 History of total knee replacement Right History of cholecystectomy H/O heart bypass surgery CABG X4 (08/2010) Family History Daughter Atrial septal defect Son Atrial septal defect Sister Crohn's disease Family history of [place] (myocardial infarction) Cancer Mother Cervical cancer Father Diabetes Coronary heart disease Cancer Brother Nephroblastoma Cancer Grandmother (Maternal) Diabetes Grandmother (Paternal) Diabetes Other No family history of adverse response to anesthesia No significant family history Social History Smoking Status: Current every day smoker Tobacco Type: E-cigarettes / Vaping Age Started Using Tobacco: 12; Age Quit Using Tobacco: 62; packs per day: 1.5; Second Hand Exposure: No; Do You Dip or Chew Tobacco: No; Tobacco Cessation Education Requested by Patient: No Hx Alcohol Use: No Hx Substance Use: No Preferred Language: Lithuanian Communication Ability: Effective Visual Impairment: Limited Hearing Ability: Normal Wax Specialist Required: No Beliefs That Will Affect Care: None marital status: Current Living Situation: Alone current occupational status: disabled Other Information That Helps Us Care for You: No Feels Safe at Home: Yes Safety Concerns: Feels Safe At This Time Childhood Exposure to Second-Hand Smoke: Yes Assistive Devices: Cane, Denture - Upper, Denture - Lower, Glasses, Oxygen - at Night and Other Assistive Devices Comment: Oxygen PRN Daily Review of Systems All systems reviewed & are unremarkable except as noted in HPI & below Physical Exam Physical Exam: Constitutional: In general patient is a chronically ill appearing elderly female in no distress. She is alert and oriented with any focal deficits. Her left carotid does demonstrate a faint bruit. Her heart is regular, lungs are decreased significantly but clear. Brachial and radial pulses are +2. Abdomen is soft nontender with no active bowel sounds in all 4 quadrants. Femoral pulses are +2. Right DP pulse is +2, PT is +1, left lower extremity DP and PT pulses are +1. She has brisk capillary refill and no sign of distal ischemia. Results & Data Vital Signs (Past 12 Hours) Vital Signs Temp Pulse Resp BP Pulse Ox O2 Del Method 06/26/24 09:08 36.6 C 76 18 143/80 H 93 Room Air
[2024-06-26] MEDS ORDERED: PROPOFOL IV EMULSION 10 MG/ML 20 ML VIAL IV ONE (11:47)
[2024-06-26] MEDS ORDERED: DEXAMETHASONE SOD INJ 4 MG/ML VIAL ONE (11:47)
[2024-06-26] MEDS ORDERED: ONDANSETRON INJ 2 MG/ML 2 ML VIAL ONE (11:47)
[2024-06-26] MEDS ORDERED: ROCURONIUM BROMIDE 10 MG/ML 5 ML VIAL IV ONE (11:47)
[2024-06-26] MEDS ORDERED: GLYCOPYRROLATE 0.2 MG/ML VIAL ONE (11:47)
[2024-06-26] MEDS ORDERED: fentaNYL citrate PF 100 MCG/2 ML VIAL ONE ×2 (11:47→15:04)
[2024-06-26] MEDS ORDERED: LIDOCAINE 2% 2 ML VIAL/AMP(20MG/ML) INFIL ONE (11:47)
[2024-06-26] MEDS ORDERED: MIDAZOLAM HCL 1 MG/ML 2ML VIAL ONE (11:47)
[2024-06-26] MEDS ORDERED: HYDROmorphone INJ 1 MG/ML SYRINGE IV PRN (12:03)
[2024-06-26] MEDS ORDERED: ONDANSETRON INJ 2 MG/ML 2 ML VIAL IV PRN (12:03)
[2024-06-26] MEDS ORDERED: ATROPINE SULFATE 0.1 MG/ML 10ML SYR IV PRN (12:03)
[2024-06-26] MEDS ORDERED: fentaNYL citrate PF 100 MCG/2 ML VIAL IV PRN (12:03)
[2024-06-26] MEDS ORDERED: ePHEDrine sulfate 50 MG/ML AMP IV PRN (12:03)
--- NOTE | 2024-06-26 12:44 | History & Physical Bridge Note ---
Date of Service June 26, 2024 History & Physical Bridge Note I have examined the patient, reviewed the History & Physical and in the interval since the performance of the History & Physical I have noted the following changes of clinical significance: no changes noted
[2024-06-26] MEDS: ceFAZolin 2000MG 2,000 MG/15 ML SYR IV SCH ×2 (13:32→20:28)
[2024-06-26] MEDS ORDERED: SUGAMMADEX SODIUM 200 MG/2 ML VIAL IV ONE (13:57)
--- OUTSIDE RECORDS SUMMARY | 2024-06-26 14:03 | External Medical Summary | Continuity of Care Document ---
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 [address] [place], [place] [phone] Encounter Diagnosis Other senior care (current) drug therapy(Final) - Discharge Disposition: Home or Self Care Attending Physician: MD Ley Dennis J Referring Physician: MD Ley Dennis J Allergies, Adverse Reactions, Alerts Substance Criticality Severity Reaction Reaction Severity Status nitrofurantoin hives Activ e iodinated radiocontrast dyes hives Active beta blockers 1 hypotension wheezing Active Maxalt vomiting nausea Active Imitrex worsened headache Ac tive Ambien nightmares Active SHAYY Inhibitors hypotension Act aline 1replaced free text allergy Immunizations Given and Recorded Vaccine Date Status Refusal Reason pneumococcal 20-valent conjugate vaccine 1 09/22/23 Given influenza virus vaccine, inactivated 2 09/22/23 Gi margarito influenza virus vaccine, inactivated 05/03/22 Give n influenza virus vaccine, inactivated 05/15/21 Gildardo rded influenza virus vaccine, inactivated 06/17/20 Give n influenza virus vaccine, inactivated 05/15/19 Give n influenza virus vaccine, inactivated 04/10/18 Gildardo rded influenza virus vaccine, inactivated 05/25/17 Give n influenza virus vaccine, inactivated 05/24/16 Give n influenza virus vaccine, inactivated 05/29/15 Give n influenza virus vaccine, inactivated 05/02/14 Give n influenza virus vaccine, inactivated 04/19/13 Give n influenza virus vaccine, inactivated 05/11/12 Give n zoster vaccine, inactivated 03/08/18 Recorded zoster vaccine live 10/10/17 Recorded zoster vaccine live 03/31/16 Recorded tetanus/diphtheria/pertuss, acel (Tdap) 02/25/16 R ecorded tetanus/diphtheria/pertuss, acel (Tdap) 02/08/08 R ecorded influenza virus vaccine, live 3 04/19/11 Recorded pneumococcal 23-valent vaccine 05/16/10 Recorded diphtheria/tetanus/pertuss, acel (DTaP) 4 03/06/08 Recorded diphtheria/tetanus/pertuss, acel (DTaP) 5 03/06/08 Recorded tetanus toxoid 10/03/98 Recorded 1Early/Late Reason: Early/Late Reason: Other : charted late 2Early/Late Reason: Early/Late Reason: Other : carted late 3Location History: admin. record in powerchart 4Result Comment: [12/14/2012 Uncharted] wrong vaccine entered 5Result Comment: 2017-10-11: Historical information-source unspecified Medications albuterol CFC free 90 mcg/inh MDI Start: 01/01/21 3:38:00 PM EDT, 2 puff, inhaled, q4h, Disp# 1 each, Refills: 10, use with spacer chamber, PRN: as needed for wheezing, Pharmacy: [id number] Start Date: 01/01/21 Status: Ordered aspirin 81 mg oral delayed release tablet Start: 10/13/17 4:55:00 PM EST, 1 tab, Daily Start Date: 10/13/17 Status: Ordered Ativan 1 mg oral tablet Start: 12/08/21 11:57:00 AM EDT, 1 tab, PO, ONCE, Disp# 1 tab, Refills: 1, take 1 tablet 1 hour priorto MRI; can take 1/2 -1 tablet 5 min before MRI if needed, Pharmacy: [id number] Start Date: 12/08/21 Status: Ordered atorvastatin 80 mg oral tablet Start: 12/12/23 1:27:00 PM EDT, 1 tab, PO, Daily, Disp# 90 tab, Refills: 3, Pharmacy: [id number] Start Date: 12/12/23 Status: Ordered baclofen 10 mg oral tablet Start: 09/28/22 3:52:00 PM EST, 1 tab, PO, qhs, Disp# 90 tab, Refills: 1, Pharmacy: [facility]/pharmacy #[id number] Start Date: 09/28/22 Stop Date: 03/27/23 Status: Ordered BACLOFEN 10 MG TABLET Start: 02/08/24 10:52:00 AM EDT, BACLOFEN 10 MG TABLET, 1 tab, PO, qhs, Disp# 90 tab, Refills: 1, Pharmacy [id number] Start Date: 02/08/24 Status: Ordered Breyna 160 mcg-4.5 mcg/inh inhalation aerosol INHALE 2 PUFFS BY MOUTH IN THE MORNING AND 2 IN THE EVENING. RINSE MOUTH AND THROAT AFTER USE. USE WITH SPACER Start Date: 05/03/24 Status: Ordered buPROPion 150 mg/24 hours (XL) oral tablet, extended release TAKE 1 TABLET BY MOUTH IN THE MORNING Start Date: 05/03/24 Status: Ordered BuSpar 10 mg oral tablet Start: 05/03/24 9:09:00 AM EDT, 1 tab, PO, bid Start Date: 05/03/24 Status: Ordered cbd gummy Start: 05/03/24 9:10:00 AM EDT, cbd gummy Start Date: 05/03/24 Status: Ordered CoQ10 Start: 04/14/18 11:14:00 AM EDT, 200 mg =, PO, qPM Start Date: 04/14/18 Status: Ordered DULoxetine 30 mg oral delayed release capsule Start: 04/05/22 2:52:00 PM EDT, See Instructions, Disp# 30 each, Refills: 5, Take 1 capsule by mouthonce daily, Pharmacy: [id number] Start Date: 04/05/22 Status: Ordered Fish Oil oral capsule Start: 06/23/10 4:41:00 PM EST, 1,000 mg =, PO, bid Start Date: 06/23/10 Status: Ordered gabapentin 300 mg oral capsule Start: 06/06/24 1:45:00 PM EDT, 1 cap, PO, bid, Disp# 180 cap, Pharmacy: [id number] Start Date: 06/06/24 Stop Date: 09/04/24 Status: Ordered Hyper-Perez 3.5% inhalation solution Start: 06/12/24 4:10:00 PM EST, See Instructions, Disp# 30 applicator, use as needed for SOB for mucus production, Pharmacy: [facility]229 Start Date: 06/12/24 Status: Ordered ibandronate 150 mg oral tablet Start: 10/31/23 4:22:00 PM EDT, See Instructions, Disp# 1 tab, Refills: 11, TAKE 1 TAB BY MOUTH EVERY MONTH WITH 6-8OZ WATER 1 HOUR BEFORE FOOD, DRINK, DO NOT LIE DOWN FOR 1 HR & AFTER EATING, Pharmacy: [facility] Start Date: 10/31/23 Status: Ordered ibuprofen 600 mg oral tablet Start: 02/13/24 11:51:00 AM EDT, See Instructions, Disp# 60 tab, Refills: 1, TAKE 1 TABLET BY MOUTH FOUR TIMES DAILY NEEDED FOR PAIN. TAKE WITH FOOD OR MILK, Pharmacy: [facility]229 Start Date: 02/13/24 Status: Ordered lamoTRIgine 100 mg oral tablet Start: 05/03/24 9:12:00 AM EDT, See Instructions, 1.5 tab PO q AM Start Date: 05/03/24 Status: Ordered lamoTRIgine 200 mg oral tablet 1 tab, PO, qhs, Disp# 30 tab, Refills: 5, TAKE 1 TABLET BY MOUTH EVERY DAY AT BEDTIME, other Start Date: 03/21/19 Status: Ordered lidocaine 5% topical ointment Start: 09/10/19 8:55:50 AM EST, See Instructions, Disp# 50, APPLY TOPICALLY TO AFFECTED AREA TWICE DAILY. (WASH HANDS THOROUGHLY AFTER APPLICATION), Pharmacy: [facility] 2229, APPLY TOPICALLY TO AFFECTED AREA TWICE DAILY. (WASH HANDS THOROUGHLY AFTER APPLICATION) Start Date: 09/10/19 Status: Ordered magnesium oxide 400 mg (241.3 mg elemental magnesium) oral tablet Start: 05/03/24 9:08:00 AM EDT, See Instructions, 1.5 tab PO Daily Start Date: 05/03/24 Status: Ordered Melatonin 10 mg oral capsule Start: 03/02/19 1:28:00 PM EDT, 1 cap, PO, qhs, Disp# 60 cap, Refills: 10, Pharmacy: [facility]229 Start Date: 03/02/19 Status: Ordered multivitamin Start: 05/03/24 9:04:00 AM EDT, 1 tab, PO, Daily Start Date: 05/03/24 Status: Ordered nebulizer & tubing/suppli Start: 12/14/19 2:42:00 PM EDT, nebulizer & tubing/suppli, eRx Product Type: Supply, See Instructions, Disp# 1 each, neb treatments qid J43.9, R06.2, R06.02 OLD NEB BROKEN BEYOND REPAIR Start Date: 12/14/19 Status: Ordered nicotine 7 mg/24 hr transdermal film, extended release Start: 04/24/23 8:14:00 PM EDT, See Instructions, Disp# 28 patch, Refills: 5, APPLY 1 PATCH TRANSDERMAL DAILY, Pharmacy: [id number] Start Date: 04/24/23 Status: Ordered nitroglycerin 0.4 mg sublingual spray Start: 03/01/12 9:00:00 AM EDT, 1 spray, SL, q5min, PRN: as needed for chest pain Start Date: 03/01/12 Status: Ordered Nurtec ODT 75 mg oral tablet, disintegrating Start: 10/14/23 1:03:00 PM EST, 1 tab, PO, Daily, PRN: migraine headache Start Date: 10/14/23 Status: Ordered pantoprazole 40 mg oral delayed release tablet Start: 06/18/24 2:58:00 PM EST, 1 tab, PO, Daily, Disp# 90 tab, Refills: 2, Pharmacy: [id number] Start Date: 06/18/24 Status: Ordered Plavix 75 mg oral tablet Start: 05/31/24 10:02:00 AM EDT, 1 tab, PO, Daily, Disp# 30 tab, Refills: 11, Pharmacy: [facility] Start Date: 05/31/24 Status: Ordered polyethylene glycol 3350 oral powder for reconstitution Start: 01/10/19 1:30:17 PM EDT, See Instructions, Disp# 255, Refills: 12, TAKE 17 G DIRECTED DAILY, Pharmacy: [facility]/pharmacy #[id number] Start Date: 01/10/19 Status: Ordered predniSONE 20 mg oral tablet Start: 06/12/24 4:04:00 PM EST, 2 tab, PO, Daily, Disp# 10 tab, Pharmacy: [id number] Start Date: 06/12/24 Stop Date: 06/17/24 Status: Ordered predniSONE 50 mg oral tablet Start: 05/31/24 9:56:00 AM EDT, See Instructions, Disp# 3 tab, Refills: 0, 1 tab PO q8h Start 12 hrbefore procedure/study, Pharmacy: [id number] Start Date: 05/31/24 Status: Ordered ranolazine 500 mg oral tablet, extended release Start: 05/03/24 9:14:00 AM EDT, 1 tab, PO, bid Start Date: 05/03/24 Status: Ordered Seroquel 200 mg oral tablet Start: 09/22/23 1:21:00 PM EST, 1 tab, PO, Daily, Disp# 30 tab, Refills: 5, Pharmacy: [facility] Start Date: 09/22/23 Status: Ordered sucralfate 1 g oral tablet Start: 04/14/18 10:57:00 AM EDT, 1 tab, PO, ac and hs, PRN Start Date: 04/14/18 Status: Ordered Tessalon Perles 100 mg oral capsule Start: 06/12/24 4:04:00 PM EST, 1 cap, PO, tid, Disp# 30 cap, Pharmacy: [id number] Start Date: 06/12/24 Stop Date: 06/22/24 Status: Ordered Tylenol 8 Hour 650 mg oral tablet, extended release Start: 04/18/19 9:51:00 AM EDT, 2 tab, PO, q8h, Disp# 100 tab, Refills: 0, given to patient Start Date: 04/18/19 Status: Ordered Ultram 50 mg oral tablet Start: 02/13/24 11:51:00 AM EDT, 1 tab, PO, Daily, Disp# 30 tab, Refills: 1, PRN: pain - moderate (4-6), Pharmacy: [id number] Start Date: 02/13/24 Status: Ordered verapamil 240 mg/24 hours oral capsule, extended release TAKE 1 CAPSULE BY MOUTH ONCE DAILY Start Date: 05/03/24 Status: Ordered Vitamin B12 1000 mcg oral tablet Start: 06/23/10 4:44:00 PM EST, 1 tab, PO, Daily Start Date: 06/23/10 Status: Ordered Vitamin C Start: 08/25/20 10:07:00 AM EST Start Date: 08/25/20 Status: Ordered Vitamin D3 2000 intl units oral tablet Start: 06/23/10 4:43:00 PM EST, 2 tab, PO, Daily, tab Start Date: 06/23/10 Status: Ordered Voltaren 1% topical gel Start: 01/01/21 3:46:00 PM EDT, 1 appl, topical, qid, Disp# 100 g, Refills: 3, PRN: Pain, Pharmacy: [facility]/pharmacy #[id number] Start Date: 01/01/21 Status: Ordered Problem List Condition Confirmation Course Effective Dates Status H ealth Status Informant Anxiety Confirmed Active Bilateral carotid artery stenosis Confirmed Active CAD Confirmed Active DEPRESSION, NOS Confirmed Active Fibromyalgia Confirmed Active GERD Confirmed Active History of [place] (myocardial infarction) 1 Confirmed Active History of colon polyps 2 Confirmed 04/06/16 Active Status post right knee replacement Confirmed Active Hyperlipidemia Confirmed Active Iron deficiency anemia Confirmed Active IRRITABLE BOWEL SYNDROME Confirmed Active Right knee pain Confirmed Active MIGRAINE Confirmed Active Mild persistent mixed asthma without complication Confirmed Active OSTEOPOROSIS 3 Confirmed 02/21/08 Active COPD with emphysema Confirmed Active Right knee pain Confirmed Active SPINAL STENOSIS OF LUMBAR REGION 4, 5 Confirmed Active URINARY CALCULUS, UNSPECIFIED 6 Confirmed Active 1several 24 mm., not retrieved 3-2.8 left hip 4L4-L5 disc bulge, annular fissure 5L3-L4 6calcium phosphate and calcium oxalate Procedures Procedure Date Related Diagnosis Body Site Status Total knee arthroplasty 1 01/04/23 Completed Upper GI (gastrointestinal) endoscopy 2 12/22/[address] of abdomen and pelvis w/o contrast 3 11/10/22 Completed X-ray of left foot 4 10/22/22 Comp leted CARDIOVASCULAR STRESS TEST 5 10/12/22 Completed Mammogram - screening 6 06/29/22 C ompleted X-ray of right knee 7 05/13/22 Com pleted Computed tomography of abdom en and pelvis 8 02/22/22 Completed Colonoscopy 9 09/22/21 Completed Chest X-ray 10 07/16/21 Completed Mammogram - screening 11 05/18/21 Completed Pelvis and hip X-ray 12 02/12/21 C ompleted X-ray of lumbar 13, 14 02/12/21 Co mpleted Caudal Epidural steriod inje ction under fluoroscopic guidance 15 12/25/[address] Low dose CT of chest without contrast 16 08/15/[address] of abdomen and pelvis 17 12/04/19 Completed Chest x-ray 18 07/16/19 Completed Chest x-ray 19 06/16/19 Completed Mammogram 20 05/10/19 Completed Chest x-ray 21 03/02/19 Completed CXR - Chest X-ray 22 10/28/18 Comp leted Chest x-ray 23 07/27/18 Completed Sigmoidoscopy 24 04/24/[address] of lumbar spine 25 04/21/18 Com pleted Surgery 26 12/13/17 Completed MRI of right shoulder with contrast 27 12/12/17 Completed Botox injection for chronic migraines 11/28/17 Completed Pulmonary function test 28 11/22/[address] of sinuses 29 11/11/17 Complete d Migraine aura without headache 30 08/30/17 Completed Chest X-ray 31 08/02/17 Completed Emergency medical services 32 08/02/17 Completed DEXA - Dual energy X-ray becca ton absorptiometry 33, 34 06/21/[address] 35 05/30/17 Completed Mammogram - screening 36 04/20/17 Completed Biopsy of stomach 37 12/02/16 Comp leted Upper GI endoscopy 38 12/02/[address] of abdomen and pelvis 39 10/21/16 Completed EKG 40 10/21/16 Completed Emergency medical services 41 10/21/16 Completed Chest x-ray 42 10/18/16 Completed Chest x-ray 43 08/13/16 Completed Chest x-ray 44 04/30/[address] Angiogram of the Chest 45 04/30/16 Completed Emergency department patient visit 46 04/30/16 Completed Elbow X-ray 47 04/23/16 Completed Emergency department patient visit 48 04/23/16 Completed Plain X-ray lumbar spine normal 49 04/23/16 Completed Shoulder X-ray Right 50 04/23/16 C ompleted Mammogram 51 04/19/16 Completed Colonoscopy 52 04/06/16 Completed X-ray of chest and abdomen 53 04/06/16 Completed Chest x-ray 54, 55 03/27/16 Comple leobardo Upper GI endoscopy 56 03/26/[address] of lumbar spine 57 12/25/15 Com pleted Shoulder X-ray 58 10/06/15 Complet ed MRI of cervical spine 59 09/15/15 Completed MRI of lumbar spine 60 08/05/15 Co mpleted Surgical repair 61 06/20/15 Comple leobardo X-ray of lumbar spine and pelvis 62 06/09/15 Completed Chest x-ray 63 06/07/15 Completed CXR - Chest X-ray 64 05/14/15 Comp leted Chest x-ray 65 01/20/[address] brain without contrast 66 01/20/15 Completed MRI of brain 67 10/23/[address] head with contrast 68 10/22/14 Completed CXR - Chest X-ray 69 10/22/14 Comp leted US scan of carotid 70 10/22/14 Com pleted Mammogram 71 06/18/14 Completed Epidural steroid injection 72 03/13/14 Completed Epidural steroid injection 73 01/31/14 Completed Polysomnography 74 01/22/14 Comple leobardo MRI of cervical spine 75 04/25/13 Completed Lithotripsy of kidney 11/22/12 Com pleted Insertion of stent into ureter 11/03/12 Completed Cholecystectomy 04/21/11 Completed CABG x 4 - Coronary artery b ypass grafts x 4 08/27/10 Completed Arthroscopy of knee with men iscus repair 76 10/05/09 Completed Colonoscopy normal 77 12/11/08 Com pleted Oral surgery 09/2008 Completed Oral surgery 08/2008 Completed DEXA 78 02/21/08 Completed Nasal septoplasty 2003 Complet ed lumbar decompression L4-L5 2000 Completed [facility] BSO - Total abdominal hy sterectomy and bilateral salpingo-oophorectomy 79 12/21/95 Completed Surgery 80 1978 Completed section Complete d Chest X-ray 81 Completed Computed tomography (CT) of abdomen and pelvis with contrast 82 Comp leted lumbar decompression L4-L5 Completed Thoracic vertabra -Plasty Completed 1Right 2Impression: -LA Grade B reflux esophagitis with no bleeding -Small hiatal hernia -Gastritis. Biopsied -Normal examined duodenum 3Impression: 1. No acute intra-abdominal or intrapelvic abnormality. 2. No bowel obstruction or bowel wall thickening. 3. Moderate colonic fecal retention. 4. Posterior interbody zohreh and screw fusion at L3-L5 with L4-L5 discectomy The right L3 pedicle screw extends into the L20L3 intervertberal disc space. 5. Left nephrolithiasis. 6. Additional findings as above. 4Impression: No acute fracture or dislocation within the left foot 5Electrocardiographic and hemodynamic findings: 1. Baseline heart rate 61 bpm minerva to a maximum of 78 bpm with Lexiscan infusion. 2. Baseline blood pressure of 144/76 mmHg minerva to a maximum of 153/74 mmHg with Lexiscan infusion. 3. Baseline EKG demonstrated normal sinus rhythm with incomplete right bundle branch block. There were no diagnostic ST segment or T wave changes with Lexiscan infusion. No Lexiscan induced arrhythmias. Myocardial perfusion imaging findings: 1. Raw data analysis demonstrates increased GI uptake, increased liver uptake, and minimal breast attenuation. This is a good quality study. 2. Gated myocardial perfusion imaging demonstrates normal EF calculated at 59%. There was mild hypokinesis of the basal and mid anterior septum, anterior, and anterolateral myocardium. 3. There is a medium in size, mild to moderate intensity, almost entirely fixed myocardial perfusion defect involving the apex, mid to distal anterior, anteroseptal, and the lateral myocardium. Thesefindings are consistent with myocardial infarction with minimal demetrius-infarct ischemia. 4. This study is moderately abnormal. Low risk for ischemia. No prior studies for comparison. Consider discussion with cardiology. 6No malignancy, 1 year screening recommended. 7Impression: 1. Tricompartmental osteoarthritis within the right knee most pronouced at the lateral compartment which demonstrates severe cartilage space narrowing. This has progressed in the interval. 2. Interval developement of a moderate joint effusion. 3. No acute fractures. 8Fat stranding and increased vascularity in multiple loops of distal duodenum in the left upper quadrant are compatible with enteritis. Otherwise no acute abnormalities are seen. 9Impression: -preparation of the colon was poor -non-bleeding internal hemorrhoids -stool in the entire examined colon -no specimens collected 10no acute chest disease 11No mammographic evidence of malignancy. 1 year screening is recommended 12The bones are osteopenic. No fracture or dislocation within the pelvis or hips. Soft tissues are unremarkable. The visualized sacrum appears intact. Vascular calcifications are noted. 131. No acute fractures within the lumbar spine 2. Severe disc space narrowing at L2-L3 which has progressed. 3. L3-L5 posterior decompression and fusion. Mild periprosthetic lucency surrounding the right L3 pedicle screw has progressed. This favors loosening. 14No fracture or dislocation within the pelvis or hips 15Injected Depo Medrol / Preserative free sodium chloride into sacral canal 161. Mild emphysema without acute intrathoracic abnormality. 2. No suspicious pulmonary nodules. 3. Extensive [place] coronary artery calcifications with prior median sternotomy and CABG. 4. Cholecystectomy. 17Impression: 1. Left-sided nephrolithiasis. No ureteral calculi. No hydronephrosis. 2. No definite bowel wall thickening or obstruction. 3. Normal appendix. 4. Posterior decompression and fusion at L3-L5 with pedicle screws and rods. Interval development of periprosthetic lucency surrounding the right L3 pedicle screw. The tip of the right L3 pedicle screw now erodes through the superior endplate of L3. There are mild erosive changes seen at the inferior endplate of L2 and superior endplate of L3 which is new from the prior study. A developing discitis/osteomyelitis cannot be excluded. However, there is no significant surrounding paravertebral edema. Clinical correlation recommended. 18Chronic and postoperative change. No acute process 19No active disease in the chest. 20There is no mammographic evidence of malignancy. A 1 year screening mammogram is recommended 21No acute process 22A new lingular airspace opacity consistent with pneumonia. 23No acute cardiopulmonary findings 24Anal fissure, minor rectal prolapse. EUA, botox injection, sigmoidectomy. Sigmoidoscope advanced to 50cm, no masses, polyps, or vascular malformations seen. Retroflexion performed, no evidence of large hemorrhoids. 251. Unchanged postsurgical appearance of L3-L5 fusion. Persistent radiolucency along the right L3 screw could loosening or infection. The appearace is unchanged. 26Right shoulder diagnostic arthroscopy with extesive debridment including removal of calcific tendonitis with a small margin convergence rotator cuff repair and an open subpectoral biceps tenodesis 27calcific tendonitis of the right shoulder 28Mild obstructive airways disease with minimal improvement after inhaled bronchodilator. 29No significant paranasal sinus disease identfied. 30botox injection 31no acute cardiopulmonary abnormality 32ER - flu like symptoms 33Spine T-score: -1.2 Femur T-score: -2.9 34-2.6 dual femurs (improving, was -2.8) 35Impression: 1. No acute intrathoracic abnormality identified. No focal airspace consolidation to suggest pneumonia. 2. Naitive coronary arterial disease with prior median sternotomy and CABG. 3 Mild centrilobular emphysema 4. Calcifications about the right humeral head mesauring up to 2.1 cm suggests rotator cuff calcific tendinosis or calcific bursitis. 36WNL - 1 yr 37reactive gastropathy, no acute inflammation process identified, immunohistochemical stain for H. Pylori negative, no intestinal metaplasia seen, negative for dysplasia and malignancy 38Normal esophagus. Small hiatus hernia. Gastritis- biopsied. Normal duodenum. 39in ER - bilateral nephrolithiasis. No hydronephrosis. Moderate wellformed stool seen within colon. No definite bowel wall thickening or obstruction 40in ER - normal 41right shoulder pain secondary to bursitis/tendonitis 42normal 43No active disease in the chest 44Cardiomegaly and mild emphysema with no active disease in the chest 451. There is no evidence of pulmonary embolus in the main, lobar, or segmental pulmonary arteries 2. Cardiomegaly and emphysema 3. No airspace consolidation or pleural effusion is seen 4. Additional findings as above 46c/o arm pain 47negative study 48c/o arm pain 49Degenerative and postoperative change. No acute bony abnormality 501. Osteopenia with no radiographic evidence of fracture or dislocation in the right shoulder 2. Bulky calcific tendinopathy is noted. This is similar to previous 51Impression: There is no mammographic evidence of malignancy. A 1 year screening mammogram is recommended. 52One 4mm polyp in sigmoid colon- resected, not retrieved. Non bleeding internal hemorrhoids. 53No bowel obstruction. No free air. 54No acute cardiac or pulmonary disease. Poststemotomy changes. Extensive calcific tendinitis in the right shoulder. 55Poststernotomy changes. No acute cardiac or pulmonary disease. 56-normal esophagus -non-bleeding erosive gastropathy. biopsied. -normal examined duodenum 57No acute abnormality. Postop changes from L3 to L5 spinal fusion- intact. Postop fluid collection again seen in posterior soft tissues at operative level. Causes mild mass effect on thecal sac. Differential considerations remain seroma or pseudomeningocele. Mild lumbosacral spondylosis. 58no definite evidence of a full-thickness rotator cuff tear. If further evaluation is desired, a CT arthrogram might be more suitable for this pt. Suspected calfific tendinitis 59Mild multilevel degenerative disc disease and facet arthrosis with slight progression since MRi 04/25/13. No central canal stenosis. Mild to moderate multilevel neural foraminal stenosis, most pronounced at left C5-C6. 60S/p L3-L5 decompression and bilateral pedicle screw fusion with L4-L5 discectomy. 6.9 x 4.3 x 3.6 cm laminectomy bed fluid collection with mild mass effect upon thecal sac. Nonspecific in postop setting, could reflect seroma or pseudomeningocele. 61Dural laceration with spinal full fluid leak, 10 days postsurgical. 62Posterior fusion at L3-L5 63Poststernotomy changes. No acute cardiac or pulmonary disease. Calcific tendinits in right shoulder. 64Poststernotomy changes. No acute disease. 65Emphysema. There is no acute cardiopulmonary abnormality. 661. No acute intracranial abnormality. 2. Mucosal thickening and a large air fluid level in the left maxillary antrum. This is new from prior studies. Correlation clinically for evidence of acute sinusitis 67Mild age related changes. No hemorrhage, mass effect, or evidence of acute ischemia. 68no ischemic findings 69no acute disease 70There is atherosclerotic plaque identified in the carotid bulbs,left greater than right.Normal doppler artier waveforms are seen through out. Atherosclerotic plaque with evidence of 50-69% stenoses at the origin of the left internal carotid atery by velocity criteria.There is no sonographic evidence of hemodynamicall significant stenosis in the right carotid arterial system. Antegrade flow is shown in the vertebral arteries 71negative recommend f/u in 1 yr 34R3-L1 73C7/T1 Inter-laminar Epidural Steroid Injection 74No evidence of clinically significant sleep apnea/hypopnea or nocturnal hypoxemia. Mildly to moderately elevated limb movement events during sleep with arousal consistent with PLMD. 75Degenerative disc disease with facet joint arthropathy. Left sided disc bulge at C5-C6 and left neural foramen. 76Dr. Lillian 77normal 78--2.8 left hip 79or excess bleeding 80E Topic preg 81impression: no acute chest disease 82impression: no acute abnormalities. Results Laboratory List Name Date Comprehensive Metabolic Panel (COMP META B PANEL) 06/22/24 Hemoglobin A1C (HEMOGLOBIN, A1C) 4 Lipid Profile (LIPOPROTEINS) 06/22/24 Most recent to oldest [Reference Range]: 1 eGFR CKD-EPI [>60 mL/min/1.73 m2] 57 mL/ min/1.73 m2 1 *LOW* (06/22/24 12:00 PM) Estimated Average Glucose 100 mg/dL 2 (06/22/24 12:00 PM) Non-HDL 92 mg/dL 3 (06/22/24 12:00 PM) Estimated CrCl 54.62 mL/min (06/22/24 12:53 PM) Anion Gap [5-14 mmol/L] 9 mmol/L (06/22/24 12:00 PM) Alb [3.5-5.0 g/dL] 3.8 g/dL (06/22/24 12:00 PM) Alk Phos [38-126 unit/L] 52 unit/L (06/22/24:00 PM) ALT [<35 unit/L] 24 unit/L (06/22/24:00 PM) AST [15-46 unit/L] 24 unit/L (06/22/24:00 PM) BUN [7-20 mg/dL] 14 mg/dL (06/22/24:00 PM) Ca [8.4-10.2 mg/dL] 8.9 mg/dL (06/22/24:00 PM) Chol/HDL 2 (06/22/2400 PM) Chol [125-200 mg/dL] 177 mg/dL (06/22/24 12:00 PM) Cl- [96-107 mmol/L] 107 mmol/L (06/22/24:00 PM) HCO3 [22-30 mmol/L] 24 mmol/L (06/22/24:00 PM) Cret [0.60-1.00 mg/dL] 1.08 mg/dL *HI* (06/22/24:00 PM) HbA1c [4.0-6.0 %] 5.1 % (06/22/24 12:00 PM) Glu [74-106 mg/dL] 144 mg/dL *HI* (06/22/24 12:00 PM) HDL [>35 mg/dL] 85 mg/dL (06/22/24:00 PM) K [3.5-5.1 mmol/L] 3.8 mmol/L (06/22/24:00 PM) LDL Chol, Calculated [50-130 mg/dL] 54 m g/dL (06/22/24:00 PM) Na [137-145 mmol/L] 140 mmol/L (06/22/24 12:00 PM) T Bili [0.2-1.3 mg/dL] 0.9 mg/dL (06/22/24 12:00 PM) Prot [6.3-8.2 g/dL] 6.4 g/dL (06/22/24 12:00 PM) TG [<200 mg/dL] 188 mg/dL (06/22/24 12:00 PM) 1Result Comment: Testing Performed By: Dept of Pathology [facility], [address] [place] [address] 2Result Comment: Testing Performed By: Dept of Pathology [facility], [address] [place] [address] 3Result Comment: Testing Performed By: Dept of Pathology [facility], [address] [place] [address] Social History Social History Type Response Tobacco Current every day sm oker, Cigarettes, 7 per day. 39 year(s). Started age 13 Years. Previous treatment: Medications. Household tobacco concerns: Yes. Smoking Status Former Smoker, quit > 1 yr Sex Female Sex Representation Female (finding) Patient Care team information Care Team Personnel Name: MD Jadon, Julio César Mojica Position: Physician - Family Med Member Role: Lifetime Relationship Address: [address] [place] [address] Name: LILLIAN Lam Kimberly A Position: Physician Asst Exmpt - Family Med Member Role: Lifetime Relationship Address: [address] [place] [address] [place] Name: LILLIAN Hernández Lynn Position: Physician Reservoir Caretaker Exempt - Vasc Surg Member Role: Lifetime Relationship Address: [address] [place] [address] [place] Name: Jovon Wright MD, Reva Position: Resident Member Role: Lifetime Relationship Address: [address] [place] [address] Care Team Related Persons Name: IDANIA BARAHONA Name: MAME POTTS
--- OUTSIDE RECORDS SUMMARY | 2024-06-26 14:03 | External Medical Summary | Continuity of Care Document ---
Author Name Unknown Organization [facility] [address] [place], [place] [id number] Care Team Providers Care Detail Maker And Fitter Name Role Phone GenaroKailee Primary Care Physician [phone] [id number] Date(s): 06/22/24 - 06/22/24 [facility] [address] [facility] [address] [facility], [facility] [address] [place], [place] [phone] Encounter Diagnosis Occlusion and stenosis of bilateral carotid arteries(Final) - Discharge Disposition: Home or Self Care Attending Physician: MD Penaloza Eugene J Referring Physician: MD Penaloza Eugene J Allergies, Adverse Reactions, Alerts Substance Criticality Severity Reaction Reaction Severity Status nitrofurantoin hives Activ e iodinated radiocontrast dyes hives Active beta blockers 1 hypotension wheezing Active Maxalt vomiting nausea Active Imitrex worsened headache Ac tive Ambien nightmares Active SHAYY Inhibitors hypotension Act laine 1replaced free text allergy Immunizations Given and [...] chamber, PRN: as needed for wheezing, Pharmacy: [id number] Start Date: 01/01/21 Status: Ordered aspirin [...] 5 min before MRI if needed, Pharmacy: [id number] Start Date: 12/08/21 Status: Ordered atorvastatin 80 mg oral tablet Start: 12/12/23 1:27:00 PM EDT, 1 tab, PO, Daily, Disp# 90 tab, Refills: 3, Pharmacy: [id number] Start Date: 12/12/23 Status: Ordered baclofen 10 mg oral tablet Start: 09/28/22 3:52:00 PM EST, 1 tab, PO, qhs, Disp# 90 tab, Refills: 1, Pharmacy: [facility] #[id number] Start Date: 09/28/22 Stop Date: 03/27/23 Status: Ordered BACLOFEN 10 MG TABLET Start: 02/08/24 10:52:00 AM EDT, BACLOFEN 10 MG TABLET, 1 tab, PO, qhs, Disp# 90 tab, Refills: 1, Pharmacy [id number] Start Date: 02/08/24 Status: Ordered Breyna 160 [...] Take 1 capsule by mouthonce daily, Pharmacy: [id number] Start Date: 04/05/22 Status: Ordered Fish Oil oral capsule Start: 06/23/10 4:41:00 PM EST, 1,000 mg =, PO, bid Start Date: 06/23/10 Status: Ordered gabapentin 300 mg oral capsule Start: 06/06/24 1:45:00 PM EDT, 1 cap, PO, bid, Disp# 180 cap, Pharmacy: [id number] Start Date: 06/06/24 Stop Date: 09/04/24 Status: Ordered Hyper-Perez 3.5% inhalation solution Start: 06/12/24 4:10:00 PM EST, See Instructions, Disp# 30 applicator, use as needed for SOB for mucus production, Pharmacy: [facility] Start Date: 06/12/24 Status: Ordered ibandronate 150 mg oral tablet Start: 10/31/23 4:22:00 PM EDT, See Instructions, Disp# 1 tab, Refills: 11, TAKE 1 TAB BY MOUTH EVERY MONTH WITH 6-8OZ WATER 1 HOUR BEFORE FOOD, DRINK, DO NOT LIE DOWN FOR 1 HR & AFTER EATING, Pharmacy: [facility] 2229 Start Date: 10/31/23 Status: Ordered ibuprofen 600 mg oral tablet Start: 02/13/24 11:51:00 AM EDT, See Instructions, Disp# 60 tab, Refills: 1, TAKE 1 TABLET BY MOUTH FOUR TIMES DAILY NEEDED FOR PAIN. TAKE WITH FOOD OR MILK, Pharmacy: [facility] 2229 Start Date: 02/13/24 Status: Ordered lamoTRIgine [...] DAILY. (WASH HANDS THOROUGHLY AFTER APPLICATION), Pharmacy: [facility] 2229, APPLY TOPICALLY TO AFFECTED AREA TWICE [...] qhs, Disp# 60 cap, Refills: 10, Pharmacy: [facility] 2229 Start Date: 03/02/19 Status: Ordered multivitamin [...] 5, APPLY 1 PATCH TRANSDERMAL DAILY, [facility]acy: [id number] Start Date: 04/24/23 Status: Ordered nitroglycerin 0.4 [...] Daily, Disp# 90 tab, Refills: 2, Pharmacy: [id number] Start Date: 06/18/24 Status: Ordered Plavix 75 mg oral tablet Start: 05/31/24 10:02:00 AM EDT, 1 tab, PO, Daily, Disp# 30 tab, Refills: 11, Pharmacy: [facility] Start Date: 05/31/24 Status: Ordered polyethylene glycol 3350 oral powder for reconstitution Start: 01/10/19 1:30:17 PM EDT, See Instructions, Disp# 255, Refills: 12, TAKE 17 G DIRECTED DAILY, Pharmacy: [facility]acy #[id number] Start Date: 01/10/19 Status: Ordered predniSONE 20 mg oral tablet Start: 06/12/24 4:04:00 PM EST, 2 tab, PO, Daily, Disp# 10 tab, Pharmacy: [facility] Start Date: 06/12/24 Stop Date: 06/17/24 Status: Ordered predniSONE 50 mg oral tablet Start: 05/31/24 9:56:00 AM EDT, See Instructions, Disp# 3 tab, Refills: 0, 1 tab PO q8h Start 12 hrbefore procedure/study, Pharmacy: [facility] Start Date: 05/31/24 Status: Ordered ranolazine 500 mg oral tablet, extended release Start: 05/03/24 9:14:00 AM EDT, 1 tab, PO, bid Start Date: 05/03/24 Status: Ordered Seroquel 200 mg oral tablet Start: 09/22/23 1:21:00 PM EST, 1 tab, PO, Daily, Disp# 30 tab, Refills: 5, Pharmacy: [facility] Start Date: 09/22/23 Status: Ordered sucralfate 1 g oral tablet Start: 04/14/18 10:57:00 AM EDT, 1 tab, PO, ac and hs, PRN Start Date: 04/14/18 Status: Ordered Tessalon Perles 100 mg oral capsule Start: 06/12/24 4:04:00 PM EST, 1 cap, PO, tid, Disp# 30 cap, Pharmacy: [facility] Start Date: 06/12/24 Stop Date: [...] 1, PRN: pain - moderate (4-6), Pharmacy: [facility] Start Date: 02/13/24 Status: Ordered [...] 100 g, Refills: 3, PRN: Pain, Pharmacy: [facility]/pharmacy #[id number] Start Date: 01/01/21 Status: Ordered Problem List Condition Confirmation Course Effective Dates Status H ealth Status Informant Anxiety Confirmed Active Bilateral carotid artery stenosis Confirmed Active CAD Confirmed Active DEPRESSION, NOS Confirmed Active Fibromyalgia Confirmed Active GERD Confirmed Active History of MA (myocardial infarction) 1 Confirmed Active History of [...] Complet ed lumbar decompression L4-L5 2000 Completed [facility] - Total abdominal hy sterectomy and [...] 2. No suspicious pulmonary nodules. 3. Extensive [place] coronary artery calcifications with prior median sternotomy [...] arteries 71negative recommend f/u in 1 yr 11V5-Z9 73C7/T1 Inter-laminar Epidural Steroid Injection 74No evidence [...] acute abnormalities. Results Laboratory List Name Date Platelet Function (P2Y12 Receptor) (PLT FUNCTION P2Y12) 06/22/24 Most recent to oldest [Reference Range]: 1 P2Y12 Platelet Function [194-418 PRU] 11 9 PRU 1 *LOW* (06/22/24 12:08 PM) 1Result Comment: PRU reference range is 194-418 (healthy adults, no drug treatment). Post Drug Results: Lower PRU levels are expected following treatment with antiplatelet drugs. Post-treatment values are usually below the stated reference range above. The post-drug PRU values reported in the Ver[employer]NOW P2Y12 package insert are 18-435. This broader range reflects the variability in drug response and is consistent with significant numbers of patients with decreased sensitivity to P2Y12 receptor antagonists (prasugrel or clopidogrel). Clinical studies suggest an on-treatment PRU>230 indicates less than optimal response to therapy, and PRU<208 at 12-24 hours after percutaneous intervention or during follow-up is associated with a lower risk of cardiovascular events (1). (1).Standard-vs high-dose clopidogrel based on platelet function testing after percutaneouscoronary intervention: the GRAVITAS randomized trial. Eliecer, et al. KAROL. 2010October 21; 305(11): 8588-3305. doi: 10.1001/karol.2010.290 Social History Social History Type Response Tobacco Current every day sm oker, Cigarettes, 7 per day. 39 year(s). Started age 13 Years. Previous treatment: Medications. Household tobacco concerns: Yes. Smoking Status Former Smoker, quit > 1 yr Sex Female Sex Representation Female (finding) Patient Care team information Care Team Personnel Name: MD Diop Jonathan D Position: Physician - Family Med Member Role: Lifetime Relationship Address: [address] [place] [address] [place] Name: LILLIAN Lam Kimberly A Position: Physician Asst Exmpt - Family Med Member Role: Lifetime Relationship Address: [address] [place] [address] [place] Name: LILLIAN Hernández Lynn Position: Physician Still Operator Exempt - Vasc Surg Member Role: Lifetime Relationship Address: [address] [place] [address] [place] Name: Jovon Wright MD, Reva Position: Resident Member Role: Lifetime Relationship Address: [address] [place] [address] [place] Care Team Related Persons Name: IDANIA BARAHONA Name: MAME POTTS
[2024-06-26] MEDS: SURGICEL ABSORB HEMOSTAT 2IN X 14IN TOP ONE (15:01)
[2024-06-26] MEDS: VISIPAQUE IV ONE (15:01)
[2024-06-26] MEDS: BUPIVACAINE/EPINEPHRINE 0.5% MPF 1:200,000 30 ML VIAL ONE (15:16)
[2024-06-26] MEDS: GELATIN SPONGE SZ 100 ONE (15:17)
[2024-06-26] MEDS: ceFAZolin 330 MG/ML 1 GM VIAL ONE (15:17)
[2024-06-26] MEDS: THROMBIN FOR SOLN 20000 UNIT KIT ONE (15:17)
--- NOTE | 2024-06-26 15:21 | Procedure Note ---
Angiogram Post Procedure Fluoroscopy Time (minutes): 14.8 Radiation (mGy): 74 Contrast: 27 Post Operative Report Pre & Post Diagnosis Operation Date: 06/26/24 10:20 Pre-Op Diagnosis: Stenosis of right carotid artery Post-Op Diagnosis: Stenosis of right carotid artery I identified the patient and participated in the time-out.: Yes Procedure Operation Date: 06/26/24 10:20 Actual Procedures p Right Transcarotid Artery Revascularization(Right), Ultrasound left common femoral vein - Ceferino Penaloza MD Surgeon Ceferino Penaloza MD Director Non Profit Louie,PAC Estimated Blood Loss 20 Findings Consistent with Post-Op Diagnosis Specimens none Anesthesia Type General Complications none Disposition Accompanied Patient To Recovery: No Disposition: Recovery Room Indications This is a 64-year-old female is found to have a severe stenosis of right internal carotid artery. Intervention was recommended. She elected to go ahead with a TCAR. I have discussed the risks options and benefits of the procedure with the patient. The patient understands the risks options and benefits and agrees to the procedure. Description of Procedure The patient was taken to the operating room and placed in supine position. After general anesthesia was accomplished the groins and right side of the neck and chest were prepped and draped in a sterile manner. Timeout was performed and the patient was identified. A transverse incision was made just above the clavicle between the heads of the sternocleidomastoid. This is carried down to where the common carotid artery was identified. It was isolated. It was slung with umbilical tape. Next the U stitch was placed in the common carotid artery with a 5-0 Prolene suture. Patient was given 8000 heparin at that time. Ultrasound was then used to localize the left common femoral vein. The vein was patent and compressed easily. Under ultrasound guidance the right common femoral vein was punctured and the venous sheath was inserted. This was aspirated and flushed with heparinized saline. ACT at that time was 398. Using micropuncture technique the common carotid artery was punctured. The micro sheath was inserted to 3 cm. Injection was then done showing the bifurcation. There was a significant lesion seen at the origin of the internal carotid artery on the right side. We then inserted the J-wire left and short of the lesion. The micro sheath was removed and the TCAR sheath was inserted. Once it was in place and held against the artery it was sutured to the chest wall and the incision edge. We then flushed the tubing appropriately. The venous return to was clamped onto the TCAR sheath. It was flushed through and then attached to the venous inflow sheath in the left groin. Sheath was checked for flow. The saline cleared nicely. The common carotid artery was then clamped. Flow reversal was instituted.The flow reversal was again checked for flow and found to have good flow after clamping. We inserted a 5 x 25 balloon backloaded on the wire. We cannot pass the wire into the lesion. We tried a Kumpe catheter which was also unsuccessful. We then did another injection which showed a small area of dissection on the common carotid distally just before the bifurcation. We pulled the Kumpe back to just the end of the sheath and used an 035 wire. Using the Kumpe and an 035 soft wire we were able to cannulate the internal carotid artery. The wire was passed through the lesion into the petrous portion of the internal carotid. The Kumpe was advanced into the internal carotid artery beyond the lesion. The wire was then exchanged to an 014 wire. The 5 x 25 balloon was then advanced to the lesion. Lesion was then predilated with a 5 mm balloon. Balloon was removed. We then inserted the 9/7 x 40 stent. This was deployed across the lesion without difficulty. The catheter was removed. We then did a post injection after 2 minutes. There was a question of a area of residual narrowing right at the bifurcation. We then inserted a 9 x 30 straight stent to cover this dissection area. Post deployment films just showed a questionable area of narrowing. We then changed her angle to the opposite oblique and another injection which did show some residual narrowing. We then inserted a 6 x 25 balloon and redilated this area. Widely patent stent was then noted on fluoroscopy. The carotid was allowed to go 2 minutes with flow reversal. Completion angiogram was done at that time which showed a widely patent carotid stent. At that point the common carotid artery was unclamped. The venous return tubing was clamped and removed from the TCAR sheath. The blood was allowed to flow back into the venous system. The TCAR sheath was then removed and the 5-0 Prolene suture securely tied. The patient was given 25 mg of protamine. Hemostasis was noted of the puncture site. An ACT was then drawn. The ACT was 125. The sheath was pulled from the groin and pressure was applied. Wound was irrigated with saline solution. Adequate hemostasis was obtained of the wound. Once this was noted the wound was closed in usual fashion using a 3-0 Vicryl suture for the subcutaneous layer and a 4-0 subcuticular Vicryl suture for the skin edges. Dermabond was used for dressin g. The patient left the operation room in satisfactory condition and tolerated the procedure well. All needle and sponge counts were correct at the end of the procedure. Ileana Hernández Pac assisted due to lack of resident availability and was necessary for positioning, draping, retraction, wound closure deep layers, subcutaneous tissue, and skin closure and was necessary for assisting with the case. I attest to the content of the Intraoperative Record and any orders documented therein. Any exceptions are noted below.
--- NOTE | 2024-06-26 16:21 | Anesthesiology Progress Note ---
Date of Service June 26, 2024 Anesthesia Post Procedure Vital Signs Vital Signs: Temp Pulse Resp BP BP BP Pulse Ox 06/26/24 16:10 79 16 134/72 134/54 L 96 06/26/24 16:00 82 15 127/72 136/55 L 96 06/26/24 15:50 84 16 140/74 140/55 L 95 06/26/24 15:43 36.4 C L 85 21 148/71 H 139/55 L 96 06/26/24 09:08 36.6 C 76 18 143/80 H 93 O2 Del Method O2 Flow Rate 06/26/24 16:10 Nasal Cannula 4 06/26/24 16:00 Nasal Cannula 4 06/26/24 15:50 Nasal Cannula 4 06/26/24 15:43 Nasal Cannula 4 06/26/24 09:08 Room Air Pain Intensity Head: Pain Intensity: 5 Right Neck: Pain Intensity: 3 Transfer of Care Handoff Completed per policy Notes Mental Status: alert / awake / arousable Patient Amnestic to Procedure: Yes Nausea / Vomiting: adequately controlled Pain: adequately controlled Airway Patency, RR, SpO2: stable & adequate BP & HR: stable & adequate Hydration State: stable & adequate Anesthetic Complications: no major complications apparent
[2024-06-26] MEDS ORDERED: ALBUTEROL HFA 8 GM INHALER INH PRN (16:40)
[2024-06-26] MEDS ORDERED: STAT IV Infusion **Titration per Protocol STA (16:40)
[2024-06-26] MEDS ORDERED: NITROGLYCERIN SL 0.4 MG/TAB TAB SL PRN (16:40)
[2024-06-26] MEDS ORDERED: ALBUTEROL 0.083% NEBU SOLN 3 ML VIAL INH PRN (16:40)
[2024-06-26] MEDS ORDERED: PHENYLEPHRINE/NSS 25 MG/250 ML BAG IV PRN (16:40)
[2024-06-26] MEDS: PANTOprazole 40 MG TAB PO SCH (18:10)
--- NOTE | 2024-06-26 18:16 | Critical Care Consultation ---
Date of Consultation June 26, 2024 Assessment & Plan (1) Stenosis of right carotid artery: (2) CAD, multiple vessel: (3) Chronic migraine: (4) GERD (gastroesophageal reflux disease): (5) On home oxygen therapy: (6) Emphysema of lung: (7) Dyslipidemia: (8) Benign essential hypertension: (9) Type 2 diabetes mellitus with unspecified complications: (10) Anxiety: (11) IBS (irritable bowel syndrome): (12) Depression: Plan -- Carotid atherosclerosis S/p right sided TCAR on 06/26/[address] Penaloza Continue with statin Neurochecks as per protocol Monitor H&H --COPD with emphysema with nocturnal hypoxia On BrezTri PFT showed moderate obstructive lung dysfunction Following up with moderately pulmonary Dr. Gay --Coronary artery disease and peripheral vascular disease S/p CABG On ranolazine -- History of hypertension Continue with verapamil --Diabetes Continue with ICU hypoglycemia protocol --GERD On sucralfate as well as pantoprazole twice daily -- Anxiety/depression/mood disorder On quetiapine and duloxetine at home On lamotrigine --Chronic back problem Taking gabapentin --Prophylaxis VTE: IPC GI: Pantoprazole sucralfate Lines: Right brachial arterial, peripheral Diet: Cardiac Plan: Continue with neurochecks Monitor H&H Given the complaint of heartburn, give pantoprazole and sucralfate now Patient recently had a flareup for COPD for which she was given prednisone and azithromycin She was given prednisone 50 mg to be taken a day prior to surgery. She is not wheezing right now. Blood pressure is in the 170s. I will discontinue prednisone Please note the above document was generated using voice recognition software. It may contain grammatical, syntax or spelling errors.Any formal questions or concerns about the content, text or information contained within the body of this dictation should be directly addressed to the provider for clarification. History of Present Illness Attending Physician: Ceferino Penaloza MD History of Present Illness 64-year-old female present to the hospital for right-sided TCAR Past medical history: COPD, peripheral vascular disease, hypertension, anxiety/depression, coronary artery disease s/p CABG, history of stroke, diabetes Sent to ICU for further management Patient's daughter was in the room at the time of examination Patient's systolic blood pressure was in the 170s on the right brachial arterial line, heart rate in the high 70s She was saturating 97% on 2 L, I went down to 1 L She denied any issues with her breathing No chest pain, did complain of some discomfort at the site of the incision. Complained of some sore throat Denies any difficulty swallowing. She was just about to start her dinner. No abdominal pain, no groin pain. No unusual headache or blurry vision Social history: Approximately [id number] smoking history, quit 3 years ago Allergies Allergy/AdvReac Type Severity Reaction Status Date / Time Iodinated Contrast Media Allergy Intermediate Rash Verified 06/26/24 09:00 nitrofurantoin Allergy Intermediate Hives Verified 06/26/24 09:00 senna Allergy Intermediate Hives Verified 06/26/24 09:00 (From X-Prep), Takes senokot at home Beta-Blockers AdvReac Intermediate Hypotension Verified 06/26/24 09:00 (Beta-Adrenergic Bloc rizatriptan AdvReac Intermediate Nausea and Verified 06/26/24 09:00 Vomiting sumatriptan AdvReac Intermediate Worsened Verified 06/26/24 09:00 Migraine zolpidem AdvReac Intermediate Nightmares Verified 06/26/24 09:00 Home Medications Medication Instructions Recorded Confirmed Type aspirin 81 mg tablet,delayed 81 mg PO HS 07/27/18 06/26/24 History release (Rula Low Dose Aspirin) coenzyme Q10 100 mg capsule (Co 200 mg PO HS 07/27/18 06/26/24 History Q-10) cyanocobalamin (vitamin B-12) 1,000 mcg PO QAM 07/27/18 06/26/24 History 1,000 mcg tablet (Vitamin B-12) melatonin 10 mg tablet 10 mg PO HS 07/27/18 06/26/24 History multivitamin (One Daily 1 tab PO QAM 07/27/18 06/26/24 History Multivitamin tablet) omega 5-mxk-byy-fish oil 1,000 mg 1 cap PO BID 07/27/18 06/26/24 History (120 mg-180 mg) capsule (Fish Oil) duloxetine 30 mg capsule,delayed 30 mg PO QAM 06/04/19 06/26/24 History release (Cymbalta) albuterol sulfate 2.5 mg/3 mL 2.5 mg inhalation Q4H PRN 06/16/19 06/26/24 History (0.083 %) solution for nebulization Shortness Of Breath Or Wheezing atorvastatin 80 mg tablet (Lipitor) 80 mg PO QPM 10/04/19 06/26/24 History cholecalciferol (vitamin D3) 25 2,000 unit PO QAM 04/17/20 06/26/24 History mcg (1,000 unit) capsule (Vitamin D3) magnesium oxide 400 mg PO HS 10/30/20 06/26/24 History tramadol 50 mg tablet 100 mg PO Q8H PRN Pain 10/01/21 06/26/24 History buspirone 10 mg tablet 10 mg PO BID 11/04/22 06/26/24 History pantoprazole 40 mg tablet,delayed 40 mg PO BID #60 tabs 12/22/22 06/26/24 Rx release nitroglycerin 0.4 mg sublingual 0.4 mg sublingual UD PRN chest 02/17/23 06/26/24 Rx tablet (Nitrostat) pain 30 days #25 tabs baclofen 10 mg tablet 10 mg PO HS #90 tabs 07/20/23 06/26/24 Rx bupropion HCl 150 mg 24 hr tablet, 150 mg PO QAM 08/18/23 06/26/24 History extended release (Wellbutrin XL) ibandronate 150 mg tablet 150 mg PO MONTHLY 08/18/23 06/26/24 History lamotrigine 100 mg tablet 150 mg PO QAM 08/18/23 06/26/24 History (Lamictal) lamotrigine 200 mg tablet 200 mg PO HS 08/18/23 06/26/24 History (Lamictal) ferrous gluconate 324 mg (38 mg 324 mg PO QAM #30 tabs 08/24/23 06/26/24 Rx iron) tablet quetiapine 200 mg tablet (Seroquel) 200 mg PO HS #30 tabs 08/24/23 06/26/24 Rx verapamil 240 mg 24 hr 240 mg PO DAILY #90 caps 12/14/23 06/26/24 Rx capsule,extended release albuterol sulfate 90 mcg/actuation 2 puff inhalation Q6H PRN 04/11/24 06/26/24 Rx aerosol inhaler (Ventolin HFA) Shortness Of Breath #8.5 grams budesonide 160 mcg-glycopyr 9 2 inh inhalation BID #10.7 grams 04/11/24 06/26/24 Rx mcg-formot 4.8 mcg/actuation HFA inhaler (Breztri Aerosphere) docusate sodium 100 mg capsule 100 mg PO DAILY PRN Constipation 05/01/24 06/26/24 History gabapentin 300 mg capsule 300 mg PO BID 05/01/24 06/26/24 History (Neurontin) ranolazine 500 mg tablet,extended 500 mg PO BID #180 tabs 06/06/24 06/26/24 Rx release,12 hr clopidogrel 75 mg tablet (Plavix) 75 mg PO QAM 06/15/24 06/26/24 History rimegepant 75 mg disintegrating 75 mg PO .COMPLEX PRN Migraines 06/19/24 06/26/24 History tablet (Nurtec ODT) prednisone 50 mg tablet 50 mg PO Q8 06/26/24 06/26/24 History sucralfate 1 gram tablet (Carafate) See Rx Instructions .Route .COMPLEX 06/26/24 06/26/24 History Patient History Medical History Type 2 diabetes mellitus Hx of sepsis 08/2023 - [facility] IP "for a week" with Covid and Pneumonia History of pneumonia 08/2023 - [facility] IP "for a week" with Covid and Sepsis Hx of chest pain pt denies any issues at this time Dyslipidemia Bilateral lumbar radiculopathy Asthma Dr Gay HTN (hypertension) COPD (chronic obstructive pulmonary disease) Dr Gay - most recent exacerbation 06/12/24 Anxiety Antiplatelet or antithrombotic long-term use clopidogrel History of blood transfusion "with all my surgies I have needed a transfusion" Esophageal dysphagia "somtimes" History of home oxygen therapy 2L O2 HS/PRN History of COVID-19 08/2023 - [facility] IP "for a week" with Pneumonia and Sepsis > resolved at this time Bilateral carotid artery disease follows with Dr. Joya > 70% R/L ICA stenosis per 04/2022 carotid doppler, unchanged compared to 06/2021 per report. Repeat imaging in one year [place] [facility] [place] IBS (irritable bowel syndrome) Kidney stones multiple & currently in Left Kidney Low back problem PTSD (post-traumatic stress disorder) Follows with psych + counselor Some short-term and long-term memory issues (undetermined if r/t PTSD per patient) Seasonal allergies Sciatica Colon polyp Hx Depression Lymphedema pt denies at this time Restless legs syndrome GERD (gastroesophageal reflux disease) Migraine with aura and without status migrainosus, not intractable "a few a month" Radicular pain of lumbosacral region Transient ischemic attack (TIA) "mini strokes" Several years ago, [place] [facility] [place]Dr. Ordaz) Heart attack hx - 2009 > stent 2011 > stent Coronary artery disease 2010 > stent CABG x4 (2010) 2011 > stent Cauda equina syndrome Per remote records, pt unaware Surgical History History of cardiac cath 2009 > stent 2010 > stent S/P epidural steroid injection caudal epidural steroid injection H/O unilateral salpingectomy History of colonoscopy History of back surgery x6 Lumbar History of right knee surgery History of lithotripsy History of ectopic r/t tubal History of shoulder surgery Right History of hysterectomy History of section x1 History of total knee replacement Right History of cholecystectomy H/O heart bypass surgery CABG X4 (08/2010) Family History Daughter Atrial septal defect Son Atrial septal defect Sister Crohn's disease Family history of RI (myocardial infarction) Cancer Mother Cervical cancer Father Diabetes Coronary heart disease Cancer Brother Nephroblastoma Cancer Grandmother (Maternal) Diabetes Grandmother (Paternal) Diabetes Other No family history of adverse response to anesthesia No significant family history Social History Smoking Status: Current every day smoker Tobacco Type: E-cigarettes / Vaping Age Started Using Tobacco: 12; Age Quit Using Tobacco: 62; packs per day: 1.5; Second Hand Exposure: No; Do You Dip or Chew Tobacco: No; Hx Alcohol Use: No Hx Substance Use: No Preferred Language: Spanish Communication Ability: Effective Visual Impairment: Limited Hearing Ability: Normal I[employer] Portal Developer Required: No Beliefs That Will Affect Care: None marital status: Current Living Situation: Alone current occupational status: disabled Feels Safe at Home: Yes Childhood Exposure to Second-Hand Smoke: Yes Assistive Devices: Cane, Denture - Upper, Denture - Lower, Glasses, Oxygen - at Night and Other Review of Systems Review of Systems: All systems reviewed & are unremarkable except as noted in HPI & below Physical Exam Physical Exam: Constitutional: No acute distress HEENT: EOMI, PERRLA, right sided incision with surrounding hematoma Respiratory system: Decreased air entry bilaterally, no wheeze, no rhonchi, mild crackles bilateral lower lobes CVS: S1-S2 positive, no murmurs or gallops Abdomen: Soft, nontender, nondistended, positive bowel sounds x4, obese Extremities: +2 pulses bilaterally radialis/ dorsalis pedis, no cyanosis, no edema Neuro: Awake alert oriented x3 Psych: Normal mood and affect G/U: No Brothers Minimal hematoma at the left groin Skin: no rashes, warm and dry Lymphatic: no cervical or axillary lymphadenopathy Results & Data Results & Data Vital Signs (Past 12 Hours) Vital Signs Temp Pulse Resp BP BP BP Pulse Ox 06/26/24 16:20 36.5 C 82 16 127/64 136/56 L 97 06/26/24 16:10 79 16 134/72 134/54 L 96 06/26/24 16:00 82 15 127/72 136/55 L 96 06/26/24 15:50 84 16 140/74 140/55 L 95 06/26/24 15:43 36.4 C L 85 21 148/71 H 139/55 L 96 06/26/24 09:08 36.6 C 76 18 143/80 H 93 O2 Del Method O2 Flow Rate 06/26/24 16:20 Nasal Cannula 4 06/26/24 16:10 Nasal Cannula 4 06/26/24 16:00 Nasal Cannula 4 06/26/24 15:50 Nasal Cannula 4 06/26/24 15:43 Nasal Cannula 4 06/26/24 09:08 Room Air Coding Level of Care Code 25614 IN/OBS CONSULT LVL 4,60M Diagnoses Stenosis of right carotid artery I65.21 CAD, multiple vessel I25.10 Chronic migraine GERD (gastroesophageal reflux disease) K21.9 On home oxygen therapy Z99.81 Emphysema of lung J43.9 Dyslipidemia E78.5 Benign essential hypertension I10 Type 2 diabetes mellitus with unspecified complications E11.8 Anxiety F41.9 IBS (irritable bowel syndrome) K58.9 Depression F32.9
[2024-06-26] MEDS: oxyCODONE/ACETAMINOPHEN 5mg/325mg TAB PO PRN (19:14)
[2024-06-26] MEDS: ATORVASTATIN 40 MG TAB PO SCH (20:25)
[2024-06-26] MEDS: QUEtiapine FUMARATE 200 MG TAB PO SCH (20:25)
[2024-06-26] MEDS: OMEGA-3 (PURIFIED FISH OIL) 1 GM CAP PO SCH (20:25)
[2024-06-26] MEDS: busPIRone 5 MG TAB PO SCH (20:26)
[2024-06-26] MEDS: MAGNESIUM OXIDE 400 MG TAB PO SCH (20:26)
[2024-06-26] MEDS: ASPIRIN 81 MG ECTAB PO SCH (20:26)
[2024-06-26] MEDS: RANOLAZINE 500 MG ER TAB PO SCH (20:27)
[2024-06-26] MEDS: lamoTRIgine 100 MG TAB PO SCH (20:27)
[2024-06-26] MEDS: BACLOFEN 10 MG TAB PO SCH (20:27)
[2024-06-26] MEDS: GABAPENTIN 300 MG CAP PO SCH (20:27)
[2024-06-26] MEDS ORDERED: NON-FORMULARY MEDICATION (Coenzyme Q10 [Co Q-10] 100 mg Capsule) PO SCH (21:00)
[2024-06-26] MEDS ORDERED: predniSONE 50 MG TAB PO SCH (22:00)
--- NOTE | 2024-06-27 07:19 | Critical Care Progress Note ---
Date of Service June 27, 2024 Assessment & Plan (1) Stenosis of right carotid artery: (2) CAD, multiple vessel: (3) Chronic migraine: (4) GERD (gastroesophageal reflux disease): (5) On home oxygen therapy: (6) Emphysema of lung: (7) Dyslipidemia: (8) Benign essential hypertension: (9) Type 2 diabetes mellitus with unspecified complications: (10) Anxiety: (11) IBS (irritable bowel syndrome): (12) Depression: Plan -- Carotid atherosclerosis S/p right sided TCAR on 06/26/[address] Penaloza Continue with statin Neurochecks as per protocol Monitor H&H --COPD with emphysema with nocturnal hypoxia On BrezTri PFT showed moderate obstructive lung dysfunction Following up with moderately pulmonary Dr. Gay --Coronary artery disease and peripheral vascular disease S/p CABG On ranolazine -- History of hypertension Continue with verapamil --Diabetes Continue with ICU hypoglycemia protocol --GERD On sucralfate as well as pantoprazole twice daily -- Anxiety/depression/mood disorder On quetiapine and duloxetine at home On lamotrigine --Chronic back problem Taking gabapentin --Prophylaxis VTE: IPC GI: Pantoprazole sucralfate Lines: Right brachial arterial, peripheral Diet: Cardiac Plan: In/out: +830, urine output 720 mL Continue with neurochecks Monitor H&H DC A-line Disposition as per vascular surgery Please note the above document was generated using voice recognition software. It may contain grammatical, syntax or spelling errors.Any formal questions or concerns about the content, text or information contained within the body of this dictation should be directly addressed to the provider for clarification. Admission and Anticipated Discharge Date Admission Date: June 26, 2024 Subjective Patient seen and examined at bedside. No acute distress, no adverse events overnight She was saturating 97-98% on 2 L nasal cannula. Denied any shortness of breath, no chest pain No abdominal pain, no groin pain The soreness in the throat has resolved Fair appetite, no difficulty swallowing No nausea vomiting Review of Systems Review of Systems: All systems reviewed & are unremarkable except as noted in Subjective Physical Exam Physical Exam: Constitutional: No acute distress HEENT: EOMI, PERRLA, right sided incision with surrounding hematoma, stable Respiratory system: Decreased air entry bilaterally, no wheeze, no rhonchi, mild crackles bilateral lower lobes CVS: S1-S2 positive, no murmurs or gallops Abdomen: Soft, nontender, nondistended, positive bowel sounds x4, obese Extremities: +2 pulses bilaterally radialis/ dorsalis pedis, no cyanosis, no edema Neuro: Awake alert oriented x3, cranial nerves II to XII grossly intact Psych: Normal mood and affect G/U: No Brothers Minimal hematoma at the left groin Skin: no rashes, warm and dry Lymphatic: no cervical or axillary lymphadenopathy Results & Data Results & Data Vital Signs (Past 12 Hours) Vital Signs Temp Pulse Pulse Resp BP BP BP 06/27/24 06:00 72 12 127/63 06/27/24 05:00 36.5 C 69 17 133/61 06/27/24 04:00 72 15 119/58 L 06/27/24 03:00 36.5 C 72 14 127/65 06/27/24 02:00 74 14 117/76 06/27/24 01:00 73 17 134/65 06/27/24 00:00 81 06/26/24 22:00 36.6 C 68 17 117/61 06/26/24 20:00 06/26/24 19:30 36.5 C 75 19 143/76 H 160/72 H Pulse Ox O2 Del Method O2 Flow Rate FiO2 06/27/24 06:00 96 Nasal Cannula 2 06/27/24 05:00 92 Nasal Cannula 2 06/27/24 04:00 91 Nasal Cannula 2 06/27/24 03:00 92 Nasal Cannula 2 06/27/24 02:00 95 Nasal Cannula 2 06/27/24 01:00 94 Nasal Cannula 2 06/27/24 00:00 06/26/24 22:00 95 Nasal Cannula 2 06/26/24 20:00 Nasal Cannula 2 06/26/24 19:30 94 Nasal Cannula 2 Coding Level of Care Code 14493 SUB INP/OBS CARE 2/35MIN Diagnoses Stenosis of right carotid artery I65.21 CAD, multiple vessel I25.10 Chronic migraine GERD (gastroesophageal reflux disease) K21.9 On home oxygen therapy Z99.81 Emphysema of lung J43.9 Dyslipidemia E78.5 Benign essential hypertension I10 Type 2 diabetes mellitus with unspecified complications E11.8 Anxiety F41.9 IBS (irritable bowel syndrome) K58.9 Depression F32.9
[2024-06-27] MEDS: CHOLECALCIFEROL 25 MCG (1000 UNITS) TAB PO SCH (08:27)
[2024-06-27] MEDS: MULTIVITAMIN TAB PO SCH (08:27)
[2024-06-27] MEDS: CYANOCOBALAMIN (B-12) 500 MCG TABLET PO SCH (08:28)
[2024-06-27] MEDS: VERAPAMIL HCL 240 MG TABCR PO SCH (08:28)
[2024-06-27] MEDS: SUCRALFATE 1 GM TAB PO PRN (08:28)
[2024-06-27] MEDS: UMECLIDINIUM/VILANTEROL 62.5/25MCG 7 PUFFS/INHALER INH SCH (08:28)
[2024-06-27] MEDS: FLUTICASONE FUROATE 200MCG 14 PUFFS/INHALER INH SCH (08:28)
[2024-06-27] MEDS: lamoTRIgine 100 MG TAB PO SCH (08:29)
[2024-06-27] MEDS: buPROPion XL 150 MG TABCR PO SCH (08:29)
[2024-06-27] MEDS: CLOPIDOGREL BISULFATE 75 MG TAB PO SCH (08:29)
[2024-06-27] MEDS: DULoxetine HCL 30 MG CAP PO SCH (08:30)
[2024-06-27] MEDS: FERROUS GLUCONATE 324 MG TAB PO SCH (08:30)
[2024-06-27 09:59] VITALS: TEMP 98.2
[2024-06-27 10:00] VITALS: O2SAT 93
[2024-06-27] MEDS: DOCUSATE SODIUM 100 MG CAP PO PRN (10:12)
--- NOTE | 2024-06-27 13:09 | Surgery Progress Note ---
Date of Service June 27, 2024 Assessment & Plan (1) Stenosis of right carotid artery: Plan: Patient POD#1 from a right tcar. Doing well. Throat discomfort most likely from endo tube irritation. Will d/c today. Admission and Anticipated Discharge Date Admission Date: June 26, 2024 Subjective Patient only complaint is incisional pain. Pain pills are working. Denies any focal neuro deficits. Had trouble swallowing dry food due to throat discomfort but pudding, soup, and liquids were no problem. Physical Exam Constitutional: WD/WN, vitals as above Neck: trachea midline Respiratory: normal respiratory effort; no respiratory distress Cardiovascular: Rate/Rhythm: regular rate and regular rhythm Skin: + incision (dry and clean) Neurologic: CN's II-XI intact bilaterally and moves all extremities Psychiatric: A+Ox3, euthymic affect Results & Data Vital Signs (Past 12 Hours) Vital Signs Temp Pulse Resp BP Pulse Ox O2 Del Method O2 Flow Rate 06/27/24 09:15 89 15 93 06/27/24 09:01 137/43 L 06/27/24 08:06 86 17 94 06/27/24 08:01 125/32 L 06/27/24 08:00 36.8 C 06/27/24 07:57 84 18 92 06/27/24 07:09 76 12 92 06/27/24 06:00 72 12 127/63 96 Nasal Cannula 2 06/27/24 05:00 36.5 C 69 17 133/61 92 Nasal Cannula 2 06/27/24 04:00 72 15 119/58 L 91 Nasal Cannula 2 06/27/24 03:00 36.5 C 72 14 127/65 92 Nasal Cannula 2 06/27/24 02:00 74 14 117/76 95 Nasal Cannula 2
--- NOTE | 2024-06-27 13:11 | Discharge Summary ---
Date of Service June 27, 2024 Admission HPI Per Admitting Provider Ms. Monroy is an elderly female who presents to Dr[facility] today as a new patient in consultation for bilateral ICA stenosis noted on recent imaging. Patient states that she has seen her date pitter who sends her for annual carotid ultrasounds for the past 7 or 8 years. She states that he notified her after her last carotid ultrasound that things appeared worse and he was going to center for further testing. He sent her for a CTA, which indicated about 70 to 80% stenosis, and referred her to Dr. Penaloza for evaluation. Patient states that she did have some "mini strokes" but this was many years ago. She denies any recent symptoms of amaurosis, unilateral extremity weakness numbness or tingling, difficulty speaking or swallowing, facial droop, sudden onset confusion. She does state that she feels her health has overall deteriorated over the past 10 years or so, and more recently since she had a myocardial infarction in August 31. She states that she is able to perform her own self-care at home, and able to make a simple meal for herself and, but states that she no longer drives, and requires her daughter and/or her sister to drive her around. She no longer does shopping on her own, and even has had her sister stay with her to be her transition social worker and help her with cleaning and laundry and household activities. She does state that ambulating across her house makes her slightly short of breath, but that if she had to go upstairs she would definitely be short of breath. She said that she has suffered from migraines for many years, and will sometimes feel some tingling in her hands and arms bilaterally when this occurs. She denies headache currently, fever, chest pain, shortness of breath, bone pain, nausea, vomiting, rest pain, claudication, nonhealing wounds or ulcers, other complaints. Admission Exam Per Admitting Provider Constitutional: In general patient is a chronically ill appearing elderly female in no distress. She is alert and oriented with any focal deficits. Her left carotid does demonstrate a faint bruit. Her heart is regular, lungs are decreased significantly but clear. Brachial and radial pulses are +2. Abdomen is soft nontender with no active bowel sounds in all 4 quadrants. Femoral pulses are +2. Right DP pulse is +2, PT is +1, left lower extremity DP and PT pulses are +1. She has brisk capillary refill and no sign of distal ischemia. Principal Diagnosis right internal caroitd artery stenosis Discharge Exam Constitutional WD/WN, vitals as above Neck trachea midline Respiratory normal respiratory effort; no respiratory distress Cardiovascular Rate/Rhythm: regular rate and regular rhythm Skin + incision (dry and clean) Neurologic CN's II-XI intact bilaterally and moves all extremities Psychiatric A+Ox3, euthymic affect Discharge Data Allergies Allergy/AdvReac Type Severity Reaction Status Date / Time Iodinated Contrast Media Allergy Intermediate Rash Verified 06/26/24 09:00 nitrofurantoin Allergy Intermediate Hives Verified 06/26/24 09:00 senna Allergy Intermediate Hives Verified 06/26/24 09:00 (From X-Prep), Takes senokot at home Beta-Blockers AdvReac Intermediate Hypotension Verified 06/26/24 09:00 (Beta-Adrenergic Bloc rizatriptan AdvReac Intermediate Nausea and Verified 06/26/24 09:00 Vomiting sumatriptan AdvReac Intermediate Worsened Verified 06/26/24 09:00 Migraine zolpidem AdvReac Intermediate Nightmares Verified 06/26/24 09:00 Consultations 06/26/24 16:40 Consult Roller Coaster Designer Routine Procedures Performed Operation Date: 06/26/24 10:20 Actual Procedures p Right Transcarotid Artery Revascularization(Right) - Ceferino Penaloza MD Ordered Studies 06/26/24 07:11 EV angio carotid cerv RT Routine US EV guide vascular access Routine Hospital Course (1) Stenosis of right carotid artery: Patient POD#1 from a right tcar. Doing well. Throat discomfort most likely from endo tube irritation. Will d/c today. Total Time Total Time Spent Total Time Spent (In Minutes): x Discharge Plan Discharge Items Patient Disposition: Home - Self-Care Reason For Visit: Right Carotid Stenosis Discharge Diagnosis: Right internal carotid artery stenosis, post stenting Activity: Per Instructions section Non-emergency contact: Surgeon Call non-emergency contact if: your temperature is above 101.5, your wound has increased redness, your wound has increased drainage and your wound pain has increased Follow-up/Referrals: Kailee Lam PA-C [Primary Care Provider] - Diet: Carb Consistent or DM2 and Heart Healthy Addtl Attending Provider Instructions: SPECIAL CARE INSTRUCTIONS: Diet: * You may return to previous diet. Medications: * Continue to take Aspirin, plavix, and statin as directed. Incision Care: * You may shower, but do not rub incision. You may let the warm soapy water run over it. Be sure to dry the incision well after bathing. * Do not shave directly over the incision until it is healed. * DO NOT IMMERSE THE INCISION IN A TUB/POOL/etc. UNTIL HEALED. Restrictions: * Do not drive for at least one week or if you are still taking any narcotic pain medication. * Do not lift anything heavier than a gallon of milk for one week after going home. Possible Complications: * Numbness - It is normal to have some numbness around the incision. Numbness can extend beyond the incision to areas of the neck, ear and face. The numbness is due to bruising of nerves during the surgery and will gradually improve over a period of months. * Hoarseness/Difficulty Speaking and Swallowing - The bruising of nerves in the neck can also cause a hoarse voice, difficulty speaking or swallowing. This may improve over time, HOWEVER, if it continues for more than a few days please contact our office ([phone]). * Excessive Swelling - There will be some swelling immediately after surgery which usually resolves within one week. If you notice that the swelling is getting worse, notify your surgeon ([phone]). * Drainage/Bleeding - If there is any drainage or bleeding, it should be a very small amount (less than a teaspoon per day). If you have excessive bleeding or drainage from the incision, call your surgeon ([phone]) right away. ACTIVATION OF EMERGENCY MEDICAL SYSTEM: Call 911, immediately, if you experience any of the following: Warning Signs and Symptoms of Stroke: * Sudden numbness or weakness of the face, arm or leg, especially on one side of the body * Sudden confusion, trouble speaking or understanding * Sudden trouble seeing in one or both eyes * Sudden trouble walking, dizziness, loss of balance or coordination * Sudden severe headache with no cause Do not delay calling 911 if you experience any warning signs or symptoms of a stroke. Delay in seeking medical attention may affect what treatments can be given to you. Risk Factors for Stroke: You can reduce your chances of stroke by working with your medical provider to adopt a healthy lifestyle. Some specific ways to lower your chance of stroke are: * If you are a smoker, now is the time to stop smoking cigarettes * If you are diabetic, improve the control of your blood sugars * Avoid excessive amounts of alcohol * Control high blood pressure * Lose weight if you are overweight * Be sure to lead an active lifestyle * Eat a healthy diet low in salt, cholesterol and fat You should know about other risk factors for stroke that you are unable to control. These include: * Age 55 years or older * Male gender * Certain racial groups: , or / * Family History of Stroke, Mini stroke or Heart Attack * Sickle Cell Disease You will be receiving a call from the Vascular Surgery Nurse after you are discharged. FOLLOW UP VISIT: It is important for you to keep your follow up appointments with your medical provider. Keep any scheduled doctor appointments. Call [phone] to schedule a follow up appointment if one not already scheduled. Pending Studies at Discharge: No Stand-Alone Forms: [employer], Smoking Cessation Medications and DC Order Prescriptions: New oxycodone-acetaminophen 5-325 mg Tablet 1 - 2 tab PO Q4H PRN (Reason: pain) Qty: 20 0RF Continued nitroglycerin [Nitrostat] 0.4 mg tablet, sublingual 0.4 mg Sublingual UD PRN (Reason: chest pain) 30 Days Qty: 25 3RF Patient Comments: patient stated it has been a long while since she took this medication ranolazine 500 mg tablet extended release 12 hr 500 mg PO BID Qty: 180 3RF atorvastatin [Lipitor] 80 mg tablet 80 mg PO QPM albuterol sulfate [Ventolin HFA] 90 mcg/actuation HFA aerosol inhaler 2 puff INHALATION Q6H PRN (Reason: Shortness Of Breath) Qty: 8.5 5RF Breztri Aerosphere 160-9-4.8 mcg/actuation HFA aerosol inhaler 2 inh inhalation BID Qty: 10.7 5RF tramadol 50 mg tablet 100 mg PO Q8H PRN (Reason: Pain) baclofen 10 mg tablet 10 mg PO HS Qty: 90 3RF Rx Instructions: TAKE 1 TABLET BY MOUTH AT BEDTIME magnesium oxide 400 mg magnesium tablet 400 mg PO HS verapamil 240 mg capsule,ext rel. pellets 24 hr 240 mg PO DAILY Qty: 90 3RF clopidogrel [Plavix] 75 mg tablet 75 mg PO QAM docusate sodium 100 mg capsule 100 mg PO DAILY PRN (Reason: Constipation) gabapentin [Neurontin] 300 mg capsule 300 mg PO BID multivitamin [One Daily Multivitamin] Tablet 1 tab PO QAM cyanocobalamin (vitamin B-12) [Vitamin B-12] 1,000 mcg Tablet 1,000 mcg PO QAM aspirin [Urla Low Dose Aspirin] 81 mg Tablet,Delayed Release (Dr/Ec) 81 mg PO HS coenzyme Q10 [Co Q-10] 100 mg Capsule 200 mg PO HS omega 8-bzo-leh-fish oil [Fish Oil] 1,000 mg (120 mg-180 mg) Capsule 1 cap PO BID melatonin 10 mg Tablet 10 mg PO HS cholecalciferol (vitamin D3) [Vitamin D3] 25 mcg (1,000 unit) capsule 2,000 unit PO QAM duloxetine [Cymbalta] 30 mg Capsule,Delayed Release(Dr/Ec) 30 mg PO QAM albuterol sulfate 2.5 mg /3 mL (0.083 %) solution for nebulization 2.5 mg inhalation Q4H PRN (Reason: Shortness Of Breath Or Wheezing) buspirone 10 mg Tablet 10 mg PO BID pantoprazole 40 mg tablet,delayed release (DR/EC) 40 mg PO BID Qty: 60 5RF bupropion HCl [Wellbutrin XL] 150 mg tablet extended release 24 hr 150 mg PO QAM lamotrigine [Lamictal] 200 mg tablet 200 mg PO HS lamotrigine [Lamictal] 100 mg tablet 150 mg PO QAM ibandronate 150 mg tablet 150 mg PO MONTHLY Rx Instructions: takes end of the month ferrous gluconate 324 mg (38 mg iron) Tablet 324 mg PO QAM Qty: 30 0RF Rx Instructions: OTC quetiapine [Seroquel] 200 mg Tablet 200 mg PO HS Qty: 30 0RF Nurtec ODT 75 mg tablet,disintegrating 75 mg PO .COMPLEX PRN (Reason: Migraines) Rx Instructions: 75 mg PO ONCE A DAY PRN. MAX DOSE 1 PER 24 HOURS; sucralfate [Carafate] 1 gram tablet See Rx Instructions .ROUTE .COMPLEX Rx Instructions: TAKE 1 TABLET BY MOUTH BEFORE MEAL(S) AND AT BEDTIME NEEDED FOR ABDOMINAL PAIN Discontinued prednisone 50 mg Tablet 50 mg PO Q8 Rx Instructions: starting 12 hours before surgery 06-25-24 Discharge Orders: Discharge Order (Routine); Ordered 06/27/24 Ordered By: Ceferino Penaloza Admission Data Admit Date/Time: 06/26/24 10:40 Attending Provider: Ceferino Penaloza Admit Provider: Ceferino Penaloza Primary Care Provider: Kailee Lam Other Providers: Hal Benavides; Rao Waddell; Raul Angelo; Francis Monroe; Andreas Gay; Krystle Fontenot; Delon Ghosh; Delisa Thibodeaux; Marcy Cerrato; Perfecto Becerril; Remington Valdes; Annabelle Sarmiento
[2024-06-27 13:18] VITALS: RESP 17
[2024-06-27 13:21] VITALS: BP 103/56; PULSE 75
== END 2024-06-27 13:54 | disposition home or self-care (01) | DRG 36 ==
LOC: ASU 08:23 → 1E 10:40
PROC: EV.TCAR (2024-06-26 10:20)

== ENCOUNTER 2025-03-13 08:46 | Inpatient (IN) ==
[2025-03-13] MEDS: ALBUT/IPRATROP 3MG/0.5MG NEB 3 ML VIAL INH STA (09:19)
[2025-03-13] MEDS: AZITHROMYCIN 250 MG TAB PO ONE (09:19)
[2025-03-13 09:20] LABS: Hematocrit (blood only) 31.6 % (37.0-47.0); Hemoglobin 10.4 g/dl (12.0-16.0); Immature Granulocytes # (auto) 0.08 K/uL (0.01-0.20); Immature Granulocytes % (auto) 0.9 %; Mean Corpuscular Hemoglobin 32.0 pg (25.0-34.0); Mean Corpuscular Volume 97.2 fL (80.0-100.0); Platelet Count 176 K/uL (130-400); RDW Standard Deviation 48.5 fL (36.4-46.3); Red Blood Count 3.25 M/uL (4.20-5.40); White Blood Count 8.97 K/ul (4.8-10.8)
[2025-03-13 09:30] LABS: Base Excess VBG 3.9 mEq/L; HCO3 VBG 30 mmol/L; Oxygen Saturation VBG < 60.0 %; PCO2 VBG 51 mmHg (38-50); PO2 VBG 31 mmHg; pH VBG 7.38 (7.36-7.41)
[2025-03-13 09:38] LABS: Alanine Aminotransferase 13.0 U/L (7-52); Albumin Globulin Ratio 1.2 (0.9-2); Alkaline Phosphatase 56.0 U/L (34-104); Anion Gap 7.0 (3-11); Bilirubin,Total 1.2 mg/dl (0.2-1.0); Blood Urea Nitrogen 13.0 mg/dl (6-23); Calcium 8.8 mg/dl (8.6-10.3); Carbon Dioxide 27.0 mmol/L (21-32); Chloride 103.0 mmol/L (98-107); Creatinine Clr Calc Pharmacy 63.1 ml/min; Globulin 2.8 gm/dl (2.5-4.0); Glucose 120.0 mg/dl (70-99(Fasting)); Magnesium 1.9 mg/dl (1.7-2.4); Potassium 3.9 mmol/L (3.5-5.1); Sodium 137.0 mmol/L (136-145); Total Protein 6.2 gm/dl (6.0-8.3)
--- NOTE | 2025-03-13 09:56 | Emergency Department Note ---
Impression & Plan Acute on chronic respiratory failure with hypoxia, Left lower lobe pneumonia, COPD exacerbation ED Provider Note NAME: JULIANA BARAHONA AGE: 65 SEX: F : 1960 ARRIVES VIA: Ambulance INFORMANT: Patient, EMS, family ED PROVIDER(S): Piotr Aleman DO CHIEF COMPLAINT: SOB HPI: This is a 65-year-old female with the PMHx of hypertension, hyperlipidemia, COPD, CAD s/p CABG, GERD, DM2 and chronic hypoxemic respiratory failure on 2 L of low-flow nasal cannula at baseline presenting to [facility] for further evaluation of shortness of breath. Patient is accompanied by EMS and family members who provide additional history. patient states that this has been worsening since Tuesday. Patient states that she had a colonoscopy on Tuesday that was uncomplicated. Patient states she has had worsening cough. She now states that her cough is productive of green sputum. Patient reports generalized malaise and fatigue. She reports that she feels unsafe at home. They deny fever or chills. She does have mild congestion. Denies chest pain or palpitations. They deny abdominal pain, nausea and vomiting. No urinary complaints. No recent changes in bowel movements. Patient denies recent changes in medications or OTC supplements. Patient offers no other complaints, today. ADDITIONAL HISTORY OBTAINED: Per HPI Chronic Medical/Social Conditions Affecting Care: Per HPI PAST MEDICAL HISTORY: See Below PAST SURGICAL HISTORY: See Below FAMILY HISTORY: See Below SOCIAL HISTORY: See Below HOME MEDICATIONS: See Below ALLERGIES: See Below VITALS: See Below PHYSICAL EXAMINATION: GENERAL: Sitting up in bed, alert, well appearing, well nourished, no distress, non-toxic EYE EXAM: normal conjunctiva. PERRL and EOM's grossly intact. OROPHARYNX: no exudate, no erythema, lips, buccal mucosa, and tongue normal and mucous membranes are moist NECK: supple, no nuchal rigidity, no adenopathy, non-tender LUNGS: minimal rhonchi. Normal expiratory wheezing. Normal chest wall mechanics HEART: no murmurs, regular rate, regular rhythm ABDOMEN: abdomen soft, non-tender, no masses, no rebound or guarding. BACK: Back is symmetrical on inspection and there is no deformity, no midline tenderness, no CVA tenderness. SKIN: no rashes and no bruising UPPER EXTREMITIES: upper extremities are grossly normal. LOWER EXTREMITIES: No pitting edema. NEURO EXAM: Normal sensorium, GCS 15, normal speech, no gross weakness of arms, no gross weakness of legs. MEDICAL DECISION MAKING: Differential diagnoses includes but not limited to ACS, unstable angina, dysrhythmia, PNA, hypervolemia/pulmonary edema, CHF exacerbation, COPD exacerbation, PE, pneumothorax, pericardial effusion, cardiac tamponade, anxiety/psychogenic, viral URI In summary, this is a 65 year old female who presented with SOB. Differential as above. Nursing notes and pertinent past medical records reviewed. Vital signs reviewed and the patient is intermittently hypoxic and tachypneic but otherwise afebrile hemodynamically stable. Patient is low flow nasal cannula requirement is slightly elevated from baseline. She appears in minimal respiratory distress. Patient does overall appear mildly ill. She does appear euvolemic. History and presentation revealed recent colonoscopy on Tuesday now with worsening respiratory status. Does have a productive cough that now has green sputum. Do feel this likely related to her COPD. Could have a viral URI or pneumonia. Patient does not have symptoms that are consistent with a pulmonary embolism. Her symptoms are not angina or anginal equivalents. Physical examination revealed as above. As a result of my initial evaluation, we will plan for labs and chest x-ray imaging. Do feel that she would likely benefit from a DuoNeb. This was provided. Diagnostics interpreted by me include EKG and cardiac monitoring as listed below: -Cardiac Monitoring: An order was placed for continuous cardiac monitoring. The monitor shows a rate of 60-80s with regular rhythm. -ECG: EKG independently interpreted by me as a very poor baseline. Peers to be normal sinus rhythm at a ventricular rate of 85 bpm. T wave inversions and flattening throughout the precordial leads. No significant ST segment changes to suggest STEMI. Patient completed laboratory studies and imaging. Results independently interpreted by me are Stable anemia. No significant leukocytosis. Patient has no significant electrolyte derangements or kidney dysfunction. Total bilirubin mildly elevated at 1.2. Patient's blood gas shows some hypercapnia but there is compensation. Procalcitonin is elevated The patient was managed with DuoNeb with some improvement. Chest x-ray independently interpreted by me reveals opacification in the left lower lung base. Consistent with the patient's clinical presentation. Likely COPD exacerbation in the setting of community-acquired pneumonia. Did have recent colonoscopy. No recent antibiotic use or inpatient stay. Patient was originally managed with Zithromax. Will add ceftriaxone on for further coverage. I did offer the patient outpatient treatment but she feels unsafe to return home at this time. Patient lives alone. She has been weak. She has had to increase her oxygen requirement. Feel it is reasonable to admit this patient for observation. Will discuss with the hospitalist team. Ultimately, the decision was made to admit the patient for COPD exacerbation secondary to community-acquired pneumonia. It was recommended to admit this patient at 1105. I discussed the case with the hospitalist service via telephone/TigerText and they are agreeable to admit the patient to their services at [address] Del Angel for Dr. Doty. Based on the above, including the patient's age, coexisting illnesses, labs, imaging, and exam findings the decision to treat as an inpatient. I discussed the patient with the hospitalist team who recommended admission to their services. They received the medications, treatments, interventions indicated above and their condition remained stable. I discussed my findings with the patient and their family and they understand and agree with the treatment plan. All patient / family questions were answered to their satisfaction. Consults/Care Managements Discussions: Per [facility] ER treatment provided: See above Procedures:none Critical Care: None The chart was completed utilizing [employer] Speech voice recognition software. Grammatical errors, random word insertions, pronoun errors, and incomplete sentences are an occasional consequence of this system due to software limitations, ambient noise, and hardware issues. Any formal questions or concerns about the content, text, or information contained within the body of this dictation should be directly addressed to the physician for clarification. Past Med/Surg History Problem List (Updated 03/16/25 @ 14:05 by Piotr Aleman DO) Hypotension Acute on chronic respiratory failure with hypoxia (Acute) COPD exacerbation (Acute) Left lower lobe pneumonia (Acute) Palpitations CEE (dyspnea on exertion) Constipation Dysphagia History of transcarotid artery revascularization (TCAR) S/P vascular surgery Stenosis of right carotid artery Anemia (Chronic) CAD, multiple vessel Chronic migraine GERD (gastroesophageal reflux disease) History of colon polyps On home oxygen therapy 2L N/C prn Failed back syndrome of lumbar spine Bilateral lumbar radiculopathy Anxiety (Acute) Type 2 diabetes mellitus with unspecified complications (Acute 06/22/11) pt denies Bilateral carotid artery disease Antiplatelet or antithrombotic long-term use Emphysema of lung Follows with Dr. Gay Dyslipidemia Benign essential hypertension Medical History Difficult intravenous access Adverse effect of anesthesia "I am slow to wake up and my bladder is slow to start working again" as per patient CEE (dyspnea on exertion) [facility] Pulmonary Palpitations "Heart monitor came back good" 01/17/25-01/31/25 - [facility] Cardiology Dr Joya Type 2 diabetes mellitus as per patient - last A1C was 5.1 - "I am not diabetic, I just spoke with my pcp 03/04/25 and said it was perfect." Hx of sepsis 08/2023 - [facility] IP "for a week" with Covid and Pneumonia History of pneumonia 08/2023 - [facility] IP "for a week" with Covid and Sepsis Hx of chest pain pt denies any issues at this time Dyslipidemia Bilateral lumbar radiculopathy Asthma [facility] Pulmonary Dr Gay HTN (hypertension) COPD (chronic obstructive pulmonary disease) Dr Gay - most recent exacerbation 06/12/24 Anxiety Antiplatelet or antithrombotic long-term use clopidogrel/plavix History of blood transfusion "with all my surgies I have needed a transfusion" Esophageal dysphagia History of home oxygen therapy 2L O2 HS/PRN History of COVID-19 08/2023 - [facility] IP "for a week" with Pneumonia and Sepsis > resolved at this time Bilateral carotid artery disease follows with Dr. Joya > 70% R/L ICA stenosis per 04/2022 carotid doppler, unchanged compared to 06/2021 per report. Repeat imaging in one year recommended per [facility] cardiology IBS (irritable bowel syndrome) Kidney stones multiple & currently in Left Kidney Low back problem PTSD (post-traumatic stress disorder) Follows with psych + counselor Some short-term and long-term memory issues (undetermined if r/t PTSD per patient) Seasonal allergies Sciatica Colon polyp Hx Depression Lymphedema pt denies at this time Restless legs syndrome GERD (gastroesophageal reflux disease) Migraine with aura and without status migrainosus, not intractable "a few a month" Radicular pain of lumbosacral region Transient ischemic attack (TIA) "mini strokes" Several years ago, Follows with [facility] neuro (Dr. Ordaz) Heart attack hx - 2009 > stent and 2011 > stent Coronary artery disease 2010 > stent CABG x4 (2010) 2011 > stent Cauda equina syndrome Per remote records, pt unaware Surgical History History of tooth extraction upper dentures Status post coronary artery stent placement x2 stents - [facility] Cardiology Dr Joya History of transcarotid artery revascularization (TCAR) (06/26/24) Dr Penaloza History of cardiac cath 2009 > stent 2010 > stent S/P epidural steroid injection caudal epidural steroid injection H/O unilateral salpingectomy History of colonoscopy History of back surgery x6 Lumbar History of right knee surgery History of lithotripsy History of ectopic r/t tubal History of shoulder surgery Right History of hysterectomy History of section x1 History of total knee replacement Right History of cholecystectomy H/O heart bypass surgery CABG X4 (08/2010) Family History Daughter Atrial septal defect Son Atrial septal defect Sister Crohn's disease Family history of [place] (myocardial infarction) Cancer Mother Cervical cancer Father Diabetes Coronary heart disease Cancer Brother Nephroblastoma Cancer Grandmother (Maternal) Diabetes Grandmother (Paternal) Diabetes Other No family history of adverse response to anesthesia No significant family history Social History Smoking Status: Former smoker Tobacco Type: Cigarettes Age Started Using Tobacco: 12; Age Quit Using Tobacco: 62; packs per day: 1.5; Second Hand Exposure: No; Do You Dip or Chew Tobacco: No; Hx Alcohol Use: No Hx Substance Use: No Preferred Language: Khmer Communication Ability: Effective Visual Impairment: Limited Hearing Ability: Normal Barge Master Required: No Beliefs That Will Affect Care: None marital status: Current Living Situation: Alone current occupational status: disabled Feels Safe at Home: Yes Childhood Exposure to Second-Hand Smoke: Yes Assistive Devices: Cane, Oxygen - Continuous and Walker Allergies Allergies Allergy/AdvReac Type Severity Reaction Status Date / Time Iodinated Contrast Media Allergy Intermediate Rash Verified 03/11/25 11:16 nitrofurantoin Allergy Intermediate Hives Verified 03/11/25 11:16 senna Allergy Intermediate Hives Verified 03/11/25 11:16 (From X-Prep), Takes senokot at home Beta-Blockers AdvReac Intermediate Hypotension Verified 03/11/25 11:16 (Beta-Adrenergic Bloc rizatriptan AdvReac Intermediate Nausea and Verified 03/11/25 11:16 Vomiting sumatriptan AdvReac Intermediate Worsened Verified 03/11/25 11:16 Migraine zolpidem AdvReac Intermediate Nightmares Verified 03/11/25 11:16 Home Meds Home Medications Medication Instructions Recorded Confirmed aspirin 81 mg tablet,delayed 81 mg PO HS 07/27/18 03/13/25 release (Rula Low Dose Aspirin) coenzyme Q10 100 mg capsule (Co 200 mg PO HS 07/27/18 03/13/25 Q-10) cyanocobalamin (vitamin B-12) 1,000 mcg PO QAM 07/27/18 03/13/25 1,000 mcg tablet (Vitamin B-12) melatonin 10 mg tablet 10 mg PO HS 07/27/18 03/13/25 multivitamin (One Daily 1 tab PO QAM 07/27/18 03/13/25 Multivitamin tablet) omega [id number]-[id number]-fish oil 1,000 mg 1 cap PO BID 07/27/18 03/13/25 (120 mg-180 mg) capsule (Fish Oil) atorvastatin 80 mg tablet (Lipitor) 80 mg PO QPM 10/04/19 03/13/25 cholecalciferol (vitamin D3) 25 2,000 unit PO QAM 04/17/20 03/13/25 mcg (1,000 unit) capsule (Vitamin D3) magnesium oxide 600 mg PO HS 10/30/20 03/13/25 tramadol 50 mg tablet 50 mg PO DAILY PRN Pain 10/01/21 03/13/25 buspirone 10 mg tablet 10 mg PO BID 11/04/22 03/13/25 bupropion HCl 150 mg 24 hr tablet, 150 mg PO QAM 08/18/23 03/13/25 extended release (Wellbutrin XL) ibandronate 150 mg tablet 150 mg PO MONTHLY 08/18/23 03/13/25 lamotrigine 100 mg tablet 150 mg PO QAM 08/18/23 03/13/25 (Lamictal) lamotrigine 200 mg tablet 200 mg PO HS 08/18/23 03/13/25 (Lamictal) gabapentin 300 mg capsule 300 mg PO BID 05/01/24 03/13/25 (Neurontin) clopidogrel 75 mg tablet (Plavix) 75 mg PO QAM 06/15/24 03/13/25 sucralfate 1 gram tablet (Carafate) 1 g PO ACHS PRN Abdominal Pain 06/26/24 03/13/25 pantoprazole 40 mg tablet,delayed 40 mg PO BID 03/05/25 03/13/25 release (Protonix) verapamil 240 mg 24 hr 240 mg PO QAM 03/05/25 03/13/25 capsule,extended release acetaminophen 650 mg 1,300 mg PO Q8H 03/13/25 03/13/25 tablet,extended release albuterol sulfate 90 mcg/actuation 2 puff inhalation Q4H PRN 03/13/25 03/13/25 aerosol inhaler (Ventolin HFA) Shortness Of Breath ascorbic acid (vitamin C) 500 mg 500 mg PO DAILY 03/13/25 03/13/25 tablet (Vitamin C) diclofenac sodium 1 % topical gel 2 g topical QID 03/13/25 03/13/25 duloxetine 30 mg capsule,delayed 30 mg PO QAM 03/13/25 03/13/25 release lidocaine 5 % topical ointment 1 applic topical BID 03/13/25 03/13/25 nitroglycerin 400 mcg/spray 400 mcg sublingual Q5M PRN Chest 03/13/25 03/13/25 translingual aerosol Pain polyethylene glycol 3350 17 17 g PO DAILY 03/13/25 03/13/25 gram/dose oral powder (Miralax) rimegepant 75 mg disintegrating 75 mg PO DAILY PRN Migraines 03/13/25 03/13/25 tablet (Nurtec ODT) sodium chloride 3.5 % for 4 ml inhalation DIRECTED PRN 03/13/25 03/13/25 nebulization (Hyper-Perez) Shortness Of Breath/Mucus Production Previous Rx's Medication Instructions Recorded baclofen 10 mg tablet 10 mg PO HS #90 tabs 07/20/23 quetiapine 200 mg tablet (Seroquel) 200 mg PO HS #30 tabs 08/24/23 ranolazine 500 mg tablet,extended 500 mg PO BID #180 tabs 06/06/24 release,12 hr Results & Data (ED) Vital Signs Vital Signs - 24 hr 03/13/25 08:52 03/13/25 08:59 03/13/25 08:59 Temperature 36.9 C Temperature Source Oral Pulse Rate 79 76 Pulse Rate [Apical] Pulse Rate from SpO2 Sensor Respiratory Rate 21 Respiratory Effort / Characteristics Non-Labored Respiratory Depth Normal Blood Pressure 102/58 L Blood Pressure [Right Arm] Blood Pressure Mean 72 Blood Pressure Mean [Right Arm] Pulse Oximetry 92 Oxygen Delivery Method Nasal Cannula Nasal Cannula Oxygen Flow Rate 2 2 Sepsis Recent Fever Within 48 Hours No Sepsis New/Unexplained Change in Mental Status No Sepsis Action Taken by Nursing No Action Required Oxygen Flow Rate - Titration Pulse Oximetry Post Tiitration 03/13/25 09:06 03/13/25 09:45 03/13/25 10:09 Temperature Temperature Source Pulse Rate 79 74 72 Pulse Rate [Apical] Pulse Rate from SpO2 Sensor 77 74 72 Respiratory Rate 22 24 26 H Respiratory Effort / Characteristics Respiratory Depth Blood Pressure 118/47 L 118/56 L 118/52 L Blood Pressure [Right Arm] Blood Pressure Mean 70 76 74 Blood Pressure Mean [Right Arm] Pulse Oximetry 94 90 90 Oxygen Delivery Method Nasal Cannula Nasal Cannula Nasal Cannula Oxygen Flow Rate 2 2 2 Sepsis Recent Fever Within 48 Hours Sepsis New/Unexplained Change in Mental Status Sepsis Action Taken by Nursing Oxygen Flow Rate - Titration Pulse Oximetry Post Tiitration 03/13/25 11:18 03/13/25 11:19 Temperature 37.0 C Temperature Source Oral Pulse Rate Pulse Rate [Apical] 72 Pulse Rate from SpO2 Sensor Respiratory Rate 21 Respiratory Effort / Characteristics Respiratory Depth Normal Blood Pressure Blood Pressure [Right Arm] 139/56 L Blood Pressure Mean Blood Pressure Mean [Right Arm] 83 Pulse Oximetry 91 88 L Oxygen Delivery Method Nasal Cannula Nasal Cannula Oxygen Flow Rate 3 2 Sepsis Recent Fever Within 48 Hours Sepsis New/Unexplained Change in Mental Status Sepsis Action Taken by Nursing Oxygen Flow Rate - Titration 3 Pulse Oximetry Post Tiitration 92 Laboratory Data 03/16/25 07:28 03/16/25 07:28 Lab Results 03/13/25 03/13/25 Range/Units 09:02 09:07 WBC 8.97 (4.8-10.8) K/ul RBC 3.25 L (4.20-5.40) M/uL Hgb 10.4 L (12.0-16.0) g/dl Hct 31.6 L (37.0-47.0) % MCV 97.2 (80.0-100.0) fL MCH 32.0 (25.0-34.0) pg MCHC 32.9 (32.0-36.0) g/dL RDW Std Deviation 48.5 H (36.4-46.3) fL RDW Coeff of Elicia 13.6 (11.5-14.5) % Plt Count 176 (130-400) K/uL MPV 9.3 L (9.4-12.4) fL Immature Gran % (Auto) 0.9 % Neut % (Auto) 72.2 % Lymph % (Auto) 20.0 % Gladwin % (Auto) 6.2 % Eos % (Auto) 0.6 % Baso % (Auto) 0.1 % Neut # (Auto) 6.48 (1.40-6.50) K/uL Lymph # (Auto) 1.79 (1.20-3.40) K/uL Gladwin # (Auto) 0.56 (0.11-0.59) K/uL Eos # (Auto) 0.05 (0.00-0.50) K/uL Baso # (Auto) 0.01 (0.00-0.20) K/uL Immature Gran # (Auto) 0.08 (0.01-0.20) K/uL VBG pH 7.38 (7.36-7.41) VBG pCO2 51 H (38-50) mmHg VBG pO2 31 mmHg VBG HCO3 30 mmol/L VBG O2 Saturation < 60.0 % VBG Base Excess 3.9 mEq/L Sodium 137 (136-145) mmol/L Potassium 3.9 (3.5-5.1) mmol/L Chloride 103 (98-107) mmol/L Carbon Dioxide 27 (21-32) mmol/L Anion Gap 7 (3-11) BUN 13 (6-23) mg/dl Creatinine 0.93 (0.6-1.2) mg/dl Est Cr Clr Drug Dosing 63.1 ml/min eGFR 68.21 BUN/Creatinine Ratio 14.0 (10-20) Glucose 120 H (70-99(Fasting)) mg/dl Calcium 8.8 (8.6-10.3) mg/dl Magnesium 1.9 (1.7-2.4) mg/dl Total Bilirubin 1.2 H (0.2-1.0) mg/dl AST 19 (13-39) U/L ALT 13 (7-52) U/L Alkaline Phosphatase 56 (34-104) U/L Total Protein 6.2 (6.0-8.3) gm/dl Albumin 3.4 (3.4-5.0) gm/dl Globulin 2.8 (2.5-4.0) gm/dl Albumin/Globulin Ratio 1.2 (0.9-2) Procalcitonin 0.70 H (0-0.5) ng/ml Administered Medications Acetaminophen (Acetaminophen 325 Mg Tab) 650 mg PO Q6H PRN PRN Reason: Fever or headache Stop: 04/12/25 14:41 Last Admin: 03/15/25 20:40 Dose: 650 mg Documented By: Admin: 03/14/25 20:43 Dose: 650 mg Documented By: TADEO Albuterol (Albut/Ipratrop 3mg/0.5mg Neb 3 Ml Vial) 3 ml NEB QIDR LUDA; Protocol Stop: 04/12/25 14:59 Last Admin: 03/16/25 11:11 Dose: 3 ml Documented By: [id number] Admin: 03/16/25 07:07 Dose: 3 ml Documented By: [id number] Admin: 03/15/25 18:08 Dose: 3 ml Documented By: [id number] Admin: 03/15/25 15:05 Dose: 3 ml Documented By: [id number] Admin: 03/15/25 10:58 Dose: 3 ml Documented By: [id number] Admin: 03/15/25 07:07 Dose: 3 ml Documented By: [id number] Admin: 03/14/25 19:33 Dose: 3 ml Documented By: Admin: 03/14/25 15:14 Dose: 3 ml Documented By: Admin: 03/14/25 10:57 Dose: 3 ml Documented By: Admin: 03/14/25 07:28 Dose: 3 ml Documented By: Admin: 03/13/25 23:33 Dose: Not Given Documented By: [email or web address] Admin: 03/13/25 15:16 Dose: 3 ml Documented By: SONYA Ascorbic Acid (Ascorbic Acid 500 Mg Tab) 500 mg PO DAILY LUDA Stop: 04/13/25 08:59 Last Admin: 03/16/25 09:32 Dose: 500 mg Documented By: Admin: 03/15/25 09:20 Dose: 500 mg Documented By: Admin: 03/14/25 08:09 Dose: 500 mg Documented By: MARIA GUADALUPE Aspirin (Aspirin 81 Mg Ectab) 81 mg PO LUDA Stop: 04/12/25 20:59 Last Admin: 03/15/25 20:42 Dose: 81 mg Documented By: Admin: 03/14/25 20:36 Dose: 81 mg Documented By: Admin: 03/13/25 20:40 Dose: 81 mg Documented By: TADEO Atorvastatin Calcium (Atorvastatin 40 Mg Tab) 80 mg PO QPM LUDA Stop: 04/12/25 20:59 Last Admin: 03/15/25 20:43 Dose: 80 mg Documented By: Admin: 03/14/25 20:36 Dose: 80 mg Documented By: Admin: 03/13/25 20:40 Dose: 80 mg Documented By: TADEO Baclofen (Baclofen 10 Mg Tab) 10 mg PO [facility] Stop: 04/12/25 20:59 Last Admin: 03/15/25 20:40 Dose: 10 mg Documented By: Admin: 03/14/25 20:37 Dose: 10 mg Documented By: Admin: 03/13/25 20:40 Dose: 10 mg Documented By: TADEO Bupropion HCl (Bupropion Xl 150 Mg Tabcr) 150 mg PO QAM ULDA Stop: 04/13/25 08:59 Last Admin: 03/16/25 09:32 Dose: 150 mg Documented By: Admin: 03/15/25 11:14 Dose: 150 mg Documented By: Admin: 03/14/25 08:08 Dose: 150 mg Documented By: MARIA GUADALUPE Buspirone HCl (Buspirone 5 Mg Tab) 10 mg PO BID LUDA Stop: 04/12/25 20:59 Last Admin: 03/16/25 09:33 Dose: 10 mg Documented By: Admin: 03/15/25 20:42 Dose: 10 mg Documented By: Admin: 03/15/25 11:14 Dose: 10 mg Documented By: Admin: 03/14/25 20:36 Dose: 10 mg Documented By: Admin: 03/14/25 08:09 Dose: 10 mg Documented By: MARIA GUADALUPE Admin: 03/13/25 20:40 Dose: 10 mg Documented By: TADEO Clopidogrel Bisulfate (Clopidogrel Bisulfate 75 Mg Tab) 75 mg PO [facility] Stop: 04/13/25 08:59 Last Admin: 03/16/25 09:33 Dose: 75 mg Documented By: Admin: 03/15/25 11:14 Dose: 75 mg Documented By: Admin: 03/14/25 08:09 Dose: 75 mg Documented By: MARIA GUADALUPE Cyanocobalamin (Cyanocobalamin (B-12) 500 Mcg Tablet) 1,000 mcg PO [facility] Stop: 04/13/25 08:59 Last Admin: 03/16/25 09:33 Dose: 1,000 mcg Documented By: Admin: 03/15/25 11:14 Dose: 1,000 mcg Documented By: Admin: 03/14/25 08:08 Dose: 1,000 mcg Documented By: MARIA GUADALUPE Diclofenac Sodium (Diclofenac Sod 1% Gel 100 Gm Tube) 2 gm EXT QID [facility]; Protocol Stop: 04/12/25 16:59 Last Admin: 03/16/25 09:33 Dose: 2 gm Documented By: Admin: 03/15/25 20:47 Dose: 2 gm Documented By: Admin: 03/15/25 16:49 Dose: 2 gm Documented By: Admin: 03/15/25 13:45 Dose: 2 gm Documented By: Admin: 03/15/25 11:14 Dose: 2 gm Documented By: Admin: 03/14/25 20:37 Dose: 2 gm Documented By: Admin: 03/14/25 16:13 Dose: 2 gm Documented By: MARIA GUADALUPE Admin: 03/14/25 13:08 Dose: 2 gm Documented By: MARIA GUADALUPE Admin: 03/14/25 08:11 Dose: 2 gm Documented By: MARIA GUADALUPE Admin: 03/13/25 20:40 Dose: 2 gm Documented By: Admin: 03/13/25 18:31 Dose: Not Given Documented By: MARIA GUADALUPE Duloxetine HCl (Duloxetine Hcl 30 Mg Cap) 30 mg PO [facility] Stop: 04/13/25 08:59 Last Admin: 03/16/25 09:34 Dose: 30 mg Documented By: Admin: 03/15/25 11:14 Dose: 30 mg Documented By: Admin: 03/14/25 08:09 Dose: 30 mg Documented By: MARIA GUADALUPE Fish Oil ([place]-3 (Purified Fish Oil) 1 Gm Cap) 1 cap PO BID LUDA Stop: 04/12/25 20:59 Last Admin: 03/16/25 09:34 Dose: 1 cap Documented By: Admin: 03/15/25 20:41 Dose: 1 cap Documented By: Admin: 03/15/25 11:15 Dose: 1 cap Documented By: Admin: 03/14/25 20:36 Dose: 1 cap Documented By: Admin: 03/14/25 08:08 Dose: 1 cap Documented By: MARIA GUADALUPE Admin: 03/13/25 20:41 Dose: 1 cap Documented By: TADEO Gabapentin (Gabapentin 300 Mg Cap) 300 mg PO BID LUDA Stop: 04/12/25 20:59 Last Admin: 03/16/25 09:34 Dose: 300 mg Documented By: Admin: 03/15/25 20:41 Dose: 300 mg Documented By: Admin: 03/15/25 11:15 Dose: 300 mg Documented By: Admin: 03/14/25 20:37 Dose: 300 mg Documented By: Admin: 03/14/25 08:08 Dose: 300 mg Documented By: MARIA GUADALUPE Admin: 03/13/25 20:41 Dose: 300 mg Documented By: TADEO Heparin Sodium (Porcine) (Heparin Sod 5,000 Unit/0.5 Ml Vial) 5,000 units SQ Q12 LUDA Stop: 04/12/25 20:59 Last Admin: 03/16/25 09:34 Dose: 5,000 units Documented By: Admin: 03/15/25 20:39 Dose: 5,000 units Documented By: Admin: 03/15/25 11:15 Dose: 5,000 units Documented By: Admin: 03/14/25 20:37 Dose: 5,000 units Documented By: Admin: 03/14/25 08:07 Dose: 5,000 units Documented By: MARIA GUADALUPE Admin: 03/13/25 20:41 Dose: 5,000 units Documented By: TADEO Levofloxacin/Dextrose (Levaquin/D5w) 750 mg in 150 mls @ 100 mls/hr IV Q24H LUDA; Protocol Stop: 03/18/25 15:59 Last Infusion: 03/15/25 19:07 Dose: Infused Documented By: Admin: 03/15/25 17:07 Dose: 100 mls/hr Documented By: Infusion: 03/14/25 17:23 Dose: Infused Documented By: Admin: 03/14/25 15:41 Dose: 100 mls/hr Documented By: MARIA GUADALUPE Infusion: 03/13/25 18:09 Dose: Infused Documented By: MARIA GUADALUPE Admin: 03/13/25 15:58 Dose: 100 mls/hr Documented By: KIM Lamotrigine (Lamotrigine 100 Mg Tab) 200 mg PO HS LUDA; Protocol Stop: 04/12/25 20:59 Last Admin: 03/15/25 20:41 Dose: 200 mg Documented By: Admin: 03/14/25 20:37 Dose: 200 mg Documented By: Admin: 03/13/25 20:41 Dose: 200 mg Documented By: TADEO Lamotrigine (Lamotrigine 100 Mg Tab) 150 mg PO QA LUDA; Protocol Stop: 04/13/25 08:59 Last Admin: 03/16/25 09:34 Dose: 150 mg Documented By: Admin: 03/15/25 11:15 Dose: 150 mg Documented By: Admin: 03/14/25 08:12 Dose: 150 mg Documented By: MARIA GUADALUPE Magnesium Oxide (Magnesium Oxide 400 Mg Tab) 600 mg PO LUDA Stop: 04/12/25 20:59 Last Admin: 03/15/25 20:44 Dose: 600 mg Documented By: Admin: 03/14/25 20:36 Dose: 600 mg Documented By: Admin: 03/13/25 20:40 Dose: 600 mg Documented By: TADEO Melatonin (Melatonin 3 Mg Tab) 9 mg PO HS LUDA; Protocol Stop: 04/12/25 20:59 Last Admin: 03/15/25 20:39 Dose: 9 mg Documented By: Admin: 03/14/25 20:37 Dose: 9 mg Documented By: Admin: 03/13/25 20:41 Dose: 9 mg Documented By: TADEO Multivitamins (Multivitamin Tab) 1 tab PO QAM LUDA Stop: 04/13/25 08:59 Last Admin: 03/16/25 09:35 Dose: 1 tab Documented By: Admin: 03/15/25 11:15 Dose: 1 tab Documented By: Admin: 03/14/25 08:09 Dose: 1 tab Documented By: MARIA GUADALUPE Pantoprazole Sodium (Pantoprazole 40 Mg Tab) 40 mg PO BID LUDA Stop: 04/12/25 20:59 Last Admin: 03/16/25 09:35 Dose: 40 mg Documented By: Admin: 03/15/25 20:43 Dose: 40 mg Documented By: Admin: 03/15/25 11:15 Dose: 40 mg Documented By: Admin: 03/14/25 20:38 Dose: 40 mg Documented By: Admin: 03/14/25 08:08 Dose: 40 mg Documented By: MARIA GUADALUPE Admin: 03/13/25 20:41 Dose: 40 mg Documented By: TADEO Polyethylene Glycol (Polyethylene (Miralax) 17 Gm Pack) 17 gm PO DAILY LUDA Stop: 04/13/25 08:59 Last Admin: 03/16/25 09:31 Dose: 17 gm Documented By: Admin: 03/15/25 11:15 Dose: 17 gm Documented By: Admin: 03/14/25 08:07 Dose: 17 gm Documented By: MARIA GUADALUPE Quetiapine Fumarate (Quetiapine Fumarate 200 Mg Tab) 200 mg PO HS LUDA Stop: 04/12/25 20:59 Last Admin: 03/15/25 20:44 Dose: 200 mg Documented By: Admin: 03/14/25 20:36 Dose: 200 mg Documented By: Admin: 03/13/25 20:40 Dose: 200 mg Documented By: TADEO Ranolazine (Ranolazine 500 Mg Er Tab) 500 mg PO BID LUDA Stop: 04/12/25 20:59 Last Admin: 03/16/25 09:35 Dose: 500 mg Documented By: Admin: 03/15/25 20:46 Dose: 500 mg Documented By: Admin: 03/15/25 11:15 Dose: 500 mg Documented By: Admin: 03/14/25 20:36 Dose: 500 mg Documented By: Admin: 03/14/25 08:09 Dose: 500 mg Documented By: MARIA GUADALUPE Admin: 03/13/25 20:41 Dose: 500 mg Documented By: TADEO Verapamil HCl (Verapamil Hcl 240 Mg Tabcr) 240 mg PO QAM LUDA Stop: 04/13/25 08:59 Last Admin: 03/16/25 09:35 Dose: 240 mg Documented By: Admin: 03/15/25 11:15 Dose: 240 mg Documented By: Admin: 03/14/25 08:10 Dose: 240 mg Documented By: MARIA GUADALUPE Vitamin D (Cholecalciferol 25 Mcg (1000 Units) Tab) 50 mcg PO QAM LUDA Stop: 04/13/25 08:59 Last Admin: 03/16/25 09:33 Dose: 50 mcg Documented By: Admin: 03/15/25 11:14 Dose: 50 mcg Documented By: Admin: 03/14/25 08:08 Dose: 50 mcg Documented By: MARIA GUADALUPE Discontinued Medications Acetaminophen (Acetaminophen 325 Mg Tab) 650 mg PO Q6 PRN PRN Reason: fever and headache Stop: 04/12/25 13:16 Last Admin: 03/13/25 13:34 Dose: 650 mg Documented By: BYRON Albuterol (Albut/Ipratrop 3mg/0.5mg Neb 3 Ml Vial) 3 ml INH NOW STA Stop: 03/13/25 08:59 Last Admin: 03/13/25 09:19 Dose: 3 ml Documented By: WALKER Azithromycin (Azithromycin 250 Mg Tab) 500 mg PO NOW ONE Stop: 03/13/25 08:59 Last Admin: 03/13/25 09:19 Dose: 500 mg Documented By: WALKER Guaifenesin/Dextromethorphan (Guaifenesin/Dextrom Syrup 100mg/10mg 5ml Udc) 5 ml PO NOW ONE Stop: 03/15/25 17:42 Last Admin: 03/15/25 18:18 Dose: 5 ml Documented By: RAJAT Ceftriaxone Sodium (Rocephin) 1,000 mg in 50 mls @ 100 mls/hr IV NOW STA Stop: 03/13/25 11:30 Last Infusion: 03/13/25 12:02 Dose: Infused Documented By: Admin: 03/13/25 11:08 Dose: 100 mls/hr Documented By: WALKER Methylprednisolone 40 mg/ (Syringe) 0.64 mls @ 1.5 mls/min IV Q8H LUDA Stop: 04/12/25 15:29 Last Admin: 03/16/25 09:30 Dose: Not Given Documented By: Admin: 03/15/25 23:50 Dose: 1.5 mls/min Documented By: Admin: 03/15/25 16:44 Dose: 1.5 mls/min Documented By: Admin: 03/15/25 08:30 Dose: 1.5 mls/min Documented By: Admin: 03/14/25 22:28 Dose: 1.5 mls/min Documented By: Admin: 03/14/25 15:41 Dose: 1.5 mls/min Documented By: MARIA GUADALUPE Admin: 03/14/25 08:10 Dose: 1.5 mls/min Documented By: MARIA GUADALUPE Admin: 03/13/25 23:36 Dose: 1.5 mls/min Documented By: Admin: 03/13/25 15:58 Dose: 1.5 mls/min Documented By: KIM Sodium Chloride (Nss) 500 mls @ 999 mls/hr IV .Q31M ONE Stop: 03/14/25 11:49 Last Infusion: 03/14/25 12:39 Dose: Infused Documented By: MARIA GUADALUPE Admin: 03/14/25 12:04 Dose: 999 mls/hr Documented By: MARIA GUADALUPE Sodium Chloride (Nss) 250 mls @ 999 mls/hr IV .Q16M ONE Stop: 03/14/25 15:37 Last Infusion: 03/14/25 16:09 Dose: Infused Documented By: MARIA GUADALUPE Admin: 03/14/25 15:41 Dose: 999 mls/hr Documented By: MARIA GUADALUPE Sodium Chloride (Nss) 1,000 mls @ 80 mls/hr IV .[id number] LUDA Stop: 03/17/25 15:29 Last Infusion: 03/15/25 08:54 Dose: Infused Documented By: Admin: 03/15/25 06:02 Dose: 80 mls/hr Documented By: Infusion: 03/15/25 06:01 Dose: Infused Documented By: Admin: 03/14/25 15:41 Dose: 80 mls/hr Documented By: MARIA GUADALUPE Imaging Data Radiologist's Impression: Chest X-Ray 03/13/25 08:58 XR chest 2V PA/lateral CLINICAL HISTORY: Dyspnea COMPARISON STUDY: 12/26/2023 FINDINGS: Stable CABG. Heart size and pulmonary vasculature are normal. There is interval dense patchy consolidation at the left lung base with obscuration of left hemidiaphragm. No pleural effusion or pneumothorax seen. IMPRESSION: Pneumonia at the left lung base. Follow-up to resolution recommended. ACT 112: Positive. There are findings on this exam that require communication between the performing entity and the patient following Patient Test Result Information Act ([place] Act 112) guidelines. Electronically signed by: Perfecto Funes M.D. 03/13/2025 10:45 AM Discharge Plan Visit Data Chief Complaint: Shortness of Breath/Dyspnea Stated Complaint: SOB ED Provider: Piotr Aleman Discharge Problem: Acute on chronic respiratory failure with hypoxia, Left lower lobe pneumonia, COPD exacerbation Patient Disposition: Admitted As Inpatient Condition: Fair Discharge Instructions Interventions: ED Discharge Assessment Last Done: 03/13/25 14:43
--- NOTE | 2025-03-13 10:47 | XRay Report ---
XR chest 2V PA/lateral CLINICAL HISTORY: Dyspnea COMPARISON STUDY: 12/26/2023 FINDINGS: Stable CABG. Heart size and pulmonary vasculature are normal. There is interval dense patch y consolidation at the left lung base with obscuration of left hemidiaphragm. No pleural effusion or pneumothorax seen. IMPRESSION: Pneumonia at the left lung base. Follow-up to resolution recommended. ACT 112: Positive. There are findings on this exam that require communication between the performing entity and the patient following Patient Test Result Information Act ([place] Act 112) guidelines. Electronically signed by: Perfecto Funes M.D. 03/13/2025 10:45 AM
--- NOTE | 2025-03-13 11:03 | Electrocardiogram Report ---
Test Reason : Blood Pressure : */* mmHG Vent. Rate : 85 BPM Atrial Rate : * BPM P-R Int : * ms QRS Dur : 104 ms QT Int : 412 ms P-R-T Axes : * -16 -23 degrees QTcB Int : 490 ms Poor data quality, interpretation may be adversely affected Normal sinus rhythm Nonspecific ST abnormality Abnormal ECG When compared with ECG of 14-Dec-2023 12:56, (unconfirmed) T wave inversion now evident in Inferior leads T wave inversion less evident in Anterior leads Confirmed by Minh Sales ([id number]) on 03/13/2025 11:03:12 AM Referred By: REFERRED SELF Confirmed By: Minh Sales
[2025-03-13] MEDS: cefTRIAXone SODIUM 1,000 MG/50 ML BAG IV STA (11:08)
--- NOTE | 2025-03-13 12:06 | History & Physical Report ---
Date of Service March 13, 2025 Assessment & Plan (1) Left lower lobe pneumonia: Plan: Community-acquired. Obtain sputum culture. Intravenous Levaquin, day 1 (2) COPD exacerbation: Plan: Scheduled nebulizer treatments. Scheduled Solu-Medrol. Treat underlying pneumonia (3) Acute on chronic respiratory failure with hypoxia: Plan: Supplemental oxygen per nasal cannula to maintain saturation greater than 90%. Wean down to usual oxygen rate (4) CAD, multiple vessel: Plan: Currently stable. Continue current medical management (5) Dyslipidemia: Plan: Stable. Continue statin therapy (6) Benign essential hypertension: Plan: Stable. Continue verapamil Plan Hopeful discharge back to her home within the next 3 to 4 days. Will obtain OT and PT evaluations when appropriate History of Present Illness Chief Complaint: Productive cough, shortness of breath Primary Care Provider: Kailee Genaro 65-year-old female with COPD and chronic respiratory failure on 2 L of oxygen per nasal cannula at home. For the past several days she has had a productive cough with worsening shortness of breath and weakness. She denies hemoptysis. She has no pleuritic pain. She was seen in the ED and found to have left lower lobe pneumonia with exacerbation of COPD COPD and acute on chronic respiratory failure. She denies chest pain. No acute EKG changes. She is admitted for further evaluation and treatment Allergies Allergy/AdvReac Type Severity Reaction Status Date / Time Iodinated Contrast Media Allergy Intermediate Rash Verified 03/11/25 11:16 nitrofurantoin Allergy Intermediate Hives Verified 03/11/25 11:16 senna Allergy Intermediate Hives Verified 03/11/25 11:16 (From X-Prep), Takes senokot at home Beta-Blockers AdvReac Intermediate Hypotension Verified 03/11/25 11:16 (Beta-Adrenergic Bloc rizatriptan AdvReac Intermediate Nausea and Verified 03/11/25 11:16 Vomiting sumatriptan AdvReac Intermediate Worsened Verified 03/11/25 11:16 Migraine zolpidem AdvReac Intermediate Nightmares Verified 03/11/25 11:16 Home Medications Medication Instructions Recorded Confirmed Type aspirin 81 mg tablet,delayed 81 mg PO HS 07/27/18 03/13/25 History release (Rula Low Dose Aspirin) coenzyme Q10 100 mg capsule (Co 200 mg PO HS 07/27/18 03/13/25 History Q-10) cyanocobalamin (vitamin B-12) 1,000 mcg PO QAM 07/27/18 03/13/25 History 1,000 mcg tablet (Vitamin B-12) melatonin 10 mg tablet 10 mg PO HS 07/27/18 03/13/25 History multivitamin (One Daily 1 tab PO QAM 07/27/18 03/13/25 History Multivitamin tablet) omega 6-wjh-moz-fish oil 1,000 mg 1 cap PO BID 07/27/18 03/13/25 History (120 mg-180 mg) capsule (Fish Oil) atorvastatin 80 mg tablet (Lipitor) 80 mg PO QPM 10/04/19 03/13/25 History cholecalciferol (vitamin D3) 25 2,000 unit PO QAM 04/17/20 03/13/25 History mcg (1,000 unit) capsule (Vitamin D3) magnesium oxide 600 mg PO HS 10/30/20 03/13/25 History tramadol 50 mg tablet 50 mg PO DAILY PRN Pain 10/01/21 03/13/25 History buspirone 10 mg tablet 10 mg PO BID 11/04/22 03/13/25 History baclofen 10 mg tablet 10 mg PO HS #90 tabs 07/20/23 03/13/25 Rx bupropion HCl 150 mg 24 hr tablet, 150 mg PO QAM 08/18/23 03/13/25 History extended release (Wellbutrin XL) ibandronate 150 mg tablet 150 mg PO MONTHLY 08/18/23 03/13/25 History lamotrigine 100 mg tablet 150 mg PO QAM 08/18/23 03/13/25 History (Lamictal) lamotrigine 200 mg tablet 200 mg PO HS 08/18/23 03/13/25 History (Lamictal) quetiapine 200 mg tablet (Seroquel) 200 mg PO HS #30 tabs 08/24/23 03/13/25 Rx gabapentin 300 mg capsule 300 mg PO BID 05/01/24 03/13/25 History (Neurontin) ranolazine 500 mg tablet,extended 500 mg PO BID #180 tabs 06/06/24 03/13/25 Rx release,12 hr clopidogrel 75 mg tablet (Plavix) 75 mg PO QAM 06/15/24 03/13/25 History sucralfate 1 gram tablet (Carafate) 1 g PO ACHS PRN Abdominal Pain 06/26/24 03/13/25 History pantoprazole 40 mg tablet,delayed 40 mg PO BID 03/05/25 03/13/25 History release (Protonix) verapamil 240 mg 24 hr 240 mg PO QAM 03/05/25 03/13/25 History capsule,extended release acetaminophen 650 mg 1,300 mg PO Q8H 03/13/25 03/13/25 History tablet,extended release albuterol sulfate 90 mcg/actuation 2 puff inhalation Q4H PRN 03/13/25 03/13/25 History aerosol inhaler (Ventolin HFA) Shortness Of Breath ascorbic acid (vitamin C) 500 mg 500 mg PO DAILY 03/13/25 03/13/25 History tablet (Vitamin C) diclofenac sodium 1 % topical gel 2 g topical QID 03/13/25 03/13/25 History duloxetine 30 mg capsule,delayed 30 mg PO QAM 03/13/25 03/13/25 History release lidocaine 5 % topical ointment 1 applic topical BID 03/13/25 03/13/25 History nitroglycerin 400 mcg/spray 400 mcg sublingual Q5M PRN Chest 03/13/25 03/13/25 History translingual aerosol Pain polyethylene glycol 3350 17 17 g PO DAILY 03/13/25 03/13/25 History gram/dose oral powder (Miralax) rimegepant 75 mg disintegrating 75 mg PO DAILY PRN Migraines 03/13/25 03/13/25 History tablet (Nurtec ODT) sodium chloride 3.5 % for 4 ml inhalation DIRECTED PRN 03/13/25 03/13/25 History nebulization (Hyper-Perez) Shortness Of Breath/Mucus Production Past Med/Surg History Problem List (Updated 03/13/25 @ 12:05 by Adolfo Doty MD) Acute on chronic respiratory failure with hypoxia COPD exacerbation Left lower lobe pneumonia Palpitations CEE (dyspnea on exertion) Constipation Dysphagia History of transcarotid artery revascularization (TCAR) S/P vascular surgery Stenosis of right carotid artery Anemia (Chronic) CAD, multiple vessel Chronic migraine GERD (gastroesophageal reflux disease) History of colon polyps On home oxygen therapy 2L N/C prn Failed back syndrome of lumbar spine Bilateral lumbar radiculopathy Anxiety (Acute) Type 2 diabetes mellitus with unspecified complications (Acute 06/22/11) pt denies Bilateral carotid artery disease Antiplatelet or antithrombotic long-term use Emphysema of lung Follows with Dr. Gay Dyslipidemia Benign essential hypertension Medical History Difficult intravenous access Adverse effect of anesthesia "I am slow to wake up and my bladder is slow to start working again" as per patient CEE (dyspnea on exertion) [facility] Pulmonary Palpitations "Heart monitor came back good" 01/17/25-01/31/25 - [facility] Cardiology Dr Joay Type 2 diabetes mellitus as per patient - last A1C was 5.1 - "I am not diabetic, I just spoke with my pcp 03/04/25 and said it was perfect." Hx of sepsis 08/2023 - [facility] IP "for a week" with Covid and Pneumonia History of pneumonia 08/2023 - [facility] IP "for a week" with Covid and Sepsis Hx of chest pain pt denies any issues at this time Dyslipidemia Bilateral lumbar radiculopathy Asthma [facility] Pulmonary Dr Gay HTN (hypertension) COPD (chronic obstructive pulmonary disease) Dr Gay - most recent exacerbation 06/12/24 Anxiety Antiplatelet or antithrombotic long-term use clopidogrel/plavix History of blood transfusion "with all my surgies I have needed a transfusion" Esophageal dysphagia History of home oxygen therapy 2L O2 HS/PRN History of COVID-19 08/2023 - [facility] IP "for a week" with Pneumonia and Sepsis > resolved at this time Bilateral carotid artery disease follows with Dr. Joya > 70% R/L ICA stenosis per 04/2022 carotid doppler, unchanged compared to 06/2021 per report. Repeat imaging in one year recommended per [facility] cardiology IBS (irritable bowel syndrome) Kidney stones multiple & currently in Left Kidney Low back problem PTSD (post-traumatic stress disorder) Follows with psych + counselor Some short-term and long-term memory issues (undetermined if r/t PTSD per patient) Seasonal allergies Sciatica Colon polyp Hx Depression Lymphedema pt denies at this time Restless legs syndrome GERD (gastroesophageal reflux disease) Migraine with aura and without status migrainosus, not intractable "a few a month" Radicular pain of lumbosacral region Transient ischemic attack (TIA) "mini strokes" Several years ago, Follows with [facility] neuro (Dr. Ordaz) Heart attack hx - 2010 > stent and 2011 > stent Coronary artery disease 2010 > stent CABG x4 (2010) 2011 > stent Cauda equina syndrome Per remote records, pt unaware Surgical History History of tooth extraction upper dentures Status post coronary artery stent placement x2 stents - [facility] Cardiology Dr Joya History of transcarotid artery revascularization (TCAR) (06/26/24) Dr Penaloza History of cardiac cath 2009 > stent 2010 > stent S/P epidural steroid injection caudal epidural steroid injection H/O unilateral salpingectomy History of colonoscopy History of back surgery x6 Lumbar History of right knee surgery History of lithotripsy History of ectopic r/t tubal History of shoulder surgery Right History of hysterectomy History of section x1 History of total knee replacement Right History of cholecystectomy H/O heart bypass surgery CABG X4 (08/2010) Family History Daughter Atrial septal defect Son Atrial septal defect Sister Crohn's disease Family history of [place] (myocardial infarction) Cancer Mother Cervical cancer Father Diabetes Coronary heart disease Cancer Brother Nephroblastoma Cancer Grandmother (Maternal) Diabetes Grandmother (Paternal) Diabetes Other No family history of adverse response to anesthesia No significant family history Social History Smoking Status: Former smoker Tobacco Type: E-cigarettes / Vaping Age Started Using Tobacco: 12; Age Quit Using Tobacco: 62; packs per day: 1.5; Second Hand Exposure: No; Do You Dip or Chew Tobacco: No; Hx Alcohol Use: No Hx Substance Use: No Preferred Language: Lithuanian Communication Ability: Effective Visual Impairment: Limited Hearing Ability: Normal [employer] Required: No Beliefs That Will Affect Care: None marital status: Current Living Situation: Alone current occupational status: disabled Feels Safe at Home: Yes Childhood Exposure to Second-Hand Smoke: Yes Assistive Devices: Denture - Upper, Glasses and Oxygen - at Night Review of Systems 2 Review of Systems: Constitutionalno fever or chills ENTno blurred vision, no double vision, no epistaxis, no sore throat Respiratoryproductive cough. Wheezing. Shortness of breath. Cardiacno palpitations, no chest pain, no syncope Sandra nausea, vomiting, diarrhea, melena, hematochezia GUno urinary retention, no urinary incontinence, no dysuria, no hematuria Musculoskeletalno joint pain, no muscle tenderness Skinno bruising, no rashes, no pruritus Neurono isolated weakness, no paresthesia, no weakness Psychno depression, no anxiety Physical Exam 2 Physical Exam: General-alert and oriented x3, no fever, no chills HEENT-head atraumatic and normocephalic, pupils equal and reactive to light, extraocular muscles intact Neck-no lymphadenopathy or thyromegaly, trachea midline Chest-diminished breath sounds bilaterally. Rhonchi at the left base. Bilateral end expiratory wheezes. No respiratory rales. Cardiac-regular rate and rhythm, normal S1 and S2 Abdomen-normal bowel sounds, no hepatosplenomegaly Extremities-no cyanosis, clubbing, or edema Neuro-cranial nerves II through XII intact, motor and sensory function within normal limits, strength symmetrical, no focal deficits Psych-normal affect, normal mood Results & Data Results & Data Vital Signs (Past 12 Hours) Vital Signs Temp Pulse Pulse Resp BP BP Pulse Ox 03/13/25 11:19 88 L 03/13/25 11:18 37.0 C 72 21 139/56 L 91 03/13/25 10:09 72 26 H 118/52 L 90 03/13/25 09:45 74 24 118/56 L 90 03/13/25 09:06 79 22 118/47 L 94 03/13/25 08:59 76 03/13/25 08:59 03/13/25 08:52 36.9 C 79 21 102/58 L 92 O2 Del Method O2 Flow Rate 03/13/25 11:19 Nasal Cannula 2 03/13/25 11:18 Nasal Cannula 3 03/13/25 10:09 Nasal Cannula 2 03/13/25 09:45 Nasal Cannula 2 03/13/25 09:06 Nasal Cannula 2 03/13/25 08:59 03/13/25 08:59 Nasal Cannula 2 03/13/25 08:52 Nasal Cannula 2 Laboratory Results 03/13/25 09:02 03/13/25 09:02 Code Status & VTE Plan Code Status Full code PG Care Time/CCT Total # of Minutes Spent Total Time Spent with Patient: Total time spent is greater than 50% in coordination of care (as documented) at patient's floor/unit and/or counseling patient: Coding Level of Care Code 40792 INT INP/OBS CARE MIN Diagnoses Left lower lobe pneumonia J18.9 COPD exacerbation J44.1 Acute on chronic respiratory failure with hypoxia J96.21 CAD, multiple vessel I25.10 Dyslipidemia E78.5 Benign essential hypertension I10
[2025-03-13] MEDS: ACETAMINOPHEN 325 MG TAB PO PRN (13:34)
[2025-03-13] MEDS ORDERED: ONDANSETRON INJ 2 MG/ML 2 ML VIAL IV PRN (14:42)
[2025-03-13] MEDS ORDERED: methylPREDNISolone 10 mg/mL (For Ped Dose < 7mg) IV SCH (14:42)
[2025-03-13] MEDS ORDERED: NITROGLYCERIN 60 SPRAYS/4.9 GM SPRAY SL PRN (15:10)
[2025-03-13] MEDS: ALBUT/IPRATROP 3MG/0.5MG NEB 3 ML VIAL NEB SCH (15:16)
[2025-03-13] MEDS: DICLOFENAC SOD 1% GEL 100 GM TUBE EXT SCH (18:31)
[2025-03-13 19:45] LABS: Appearance Urine Clear (Clear); Bacteria Urine Automated None Seen (None Seen); Cast Urine Automated 0-2 /lpf (0-2); Epithelial Cell Urine Auto 0-2 /hpf (0-2); Glucose Urine UA Negative (Negative); RBC Urine Automated 0-2 /hpf (0-2); WBC Urine Automated 0-5 /hpf (0-5)
[2025-03-13] MEDS: busPIRone 5 MG TAB PO SCH (20:40)
[2025-03-13] MEDS: ASPIRIN 81 MG ECTAB PO SCH (20:40)
[2025-03-13] MEDS: ATORVASTATIN 40 MG TAB PO SCH (20:40)
[2025-03-13] MEDS: MAGNESIUM OXIDE 400 MG TAB PO SCH (20:40)
[2025-03-13] MEDS: BACLOFEN 10 MG TAB PO SCH (20:40)
[2025-03-13] MEDS: OMEGA-3 (PURIFIED FISH OIL) 1 GM CAP PO SCH (20:41)
[2025-03-13] MEDS: lamoTRIgine 100 MG TAB PO SCH (20:41)
[2025-03-13] MEDS: GABAPENTIN 300 MG CAP PO SCH (20:41)
[2025-03-13] MEDS: HEPARIN SOD 5,000 UNIT/0.5 ML VIAL SQ SCH (20:41)
[2025-03-13] MEDS: MELATONIN 3 MG TAB PO SCH (20:41)
[2025-03-13] MEDS: RANOLAZINE 500 MG ER TAB PO SCH (20:41)
[2025-03-14 04:54] LABS: Hematocrit (blood only) 30.2 % (37.0-47.0); Hemoglobin 9.8 g/dl (12.0-16.0); Immature Granulocytes # (auto) 0.08 K/uL (0.01-0.20); Immature Granulocytes % (auto) 1.6 %; Mean Corpuscular Hemoglobin 31.0 pg (25.0-34.0); Mean Corpuscular Volume 95.6 fL (80.0-100.0); Platelet Count 191 K/uL (130-400); RDW Standard Deviation 46.6 fL (36.4-46.3); Red Blood Count 3.16 M/uL (4.20-5.40); White Blood Count 5.04 K/ul (4.8-10.8)
[2025-03-14 05:07] LABS: Anion Gap 8.0 (3-11); Blood Urea Nitrogen 16.0 mg/dl (6-23); Calcium 9.2 mg/dl (8.6-10.3); Carbon Dioxide 26.0 mmol/L (21-32); Chloride 106.0 mmol/L (98-107); Creatinine Clr Calc Pharmacy 77.3 ml/min; Glucose 162.0 mg/dl (70-99(Fasting)); Potassium 3.8 mmol/L (3.5-5.1); Sodium 140.0 mmol/L (136-145)
[2025-03-14] MEDS: POLYETHYLENE (MIRALAX) 17 GM PACK PO SCH (08:07)
[2025-03-14] MEDS: CHOLECALCIFEROL 25 MCG (1000 UNITS) TAB PO SCH (08:08)
[2025-03-14] MEDS: CYANOCOBALAMIN (B-12) 500 MCG TABLET PO SCH (08:08)
[2025-03-14] MEDS: ASCORBIC ACID 500 MG TAB PO SCH (08:09)
[2025-03-14] MEDS: MULTIVITAMIN TAB PO SCH (08:09)
[2025-03-14] MEDS: CLOPIDOGREL BISULFATE 75 MG TAB PO SCH (08:09)
[2025-03-14] MEDS: VERAPAMIL HCL 240 MG TABCR PO SCH (08:10)
[2025-03-14] MEDS: lamoTRIgine 100 MG TAB PO SCH (08:12)
--- NOTE | 2025-03-14 11:24 | Hospitalist Progress Note ---
Date of Service March 14, 2025 Assessment & Plan (1) Left lower lobe pneumonia: Plan: Community-acquired. Sputum culture remains pending. Continue intravenous Levaquin, day 2 (2) COPD exacerbation: Plan: Improving with scheduled nebulizer treatments and Solu-Medrol. Treat underlying pneumonia (3) Acute on chronic respiratory failure with hypoxia: Plan: Supplemental oxygen per nasal cannula to maintain saturation greater than 90%. Wean down to usual oxygen rate (4) Hypotension: Plan: Currently asymptomatic. Fluid bolus ordered intravenously. Will follow (5) CAD, multiple vessel: Plan: Currently stable. Continue current medical management (6) Dyslipidemia: Plan: Stable. Continue statin therapy (7) Benign essential hypertension: Plan: Stable. Continue verapamil Plan Hopeful discharge back to her home within the next 2-3. OT and PT assessments have been requested. Admission and Anticipated Discharge Date Admission Date: March 13, 2025 Subjective The patient states she feels better today. She has not produced any significant sputum for culture however. Levaquin day 2. She remains on Solu-Medrol and nebulizer treatments. She is currently requiring 4 L of oxygen and her baseline is 2 L. Blood pressure is somewhat low although she is asymptomatic. Fluid bolus has been ordered. Will repeat PA and left lateral chest x-ray tomorrow, March 15. OT and PT assessments have been requested. Review of Systems 2 Review of Systems: Constitutionalno fever or chills ENTno blurred vision, no double vision, no epistaxis, no sore throat Respiratoryno cough, no wheezing, no shortness of breath at rest. She does have dyspnea on exertion Cardiacno palpitations, no chest pain, no syncope Sandra nausea, vomiting, diarrhea, melena, hematochezia GUno urinary retention, no urinary incontinence, no dysuria, no hematuria Musculoskeletalno joint pain, no muscle tenderness Skinno bruising, no rashes, no pruritus Neurono isolated weakness, no paresthesia, no weakness Psychno depression, no anxiety Physical Exam 2 Physical Exam: General-alert and oriented x3, no fever, no chills HEENT-head atraumatic and normocephalic, pupils equal and reactive to light, extraocular muscles intact Neck-no lymphadenopathy or thyromegaly, trachea midline Chest-diminished breath sounds bilaterally. Continue rhonchi at the left base. Bilateral end expiratory wheezes have now resolved. No inspiratory rales. Cardiac-regular rate and rhythm, normal S1 and S2 Abdomen-normal bowel sounds, no hepatosplenomegaly Extremities-no cyanosis, clubbing, or edema Neuro-cranial nerves II through XII intact, motor and sensory function within normal limits, strength symmetrical, no focal deficits Psych-normal affect, normal mood Results & Data Results & Data Vital Signs (Past 12 Hours) Vital Signs Temp Pulse Pulse Resp BP Pulse Ox O2 Del Method 03/14/25 10:57 58 L 18 90 Nasal Cannula 03/14/25 07:28 58 L 18 93 Nasal Cannula 03/14/25 07:17 69 03/14/25 07:10 36.5 C 55 L 18 118/67 93 Nasal Cannula 03/14/25 03:05 36.5 C 58 L 18 106/63 92 Nasal Cannula 03/13/25 23:44 69 O2 Flow Rate 03/14/25 10:57 4 03/14/25 07:28 4 03/14/25 07:17 03/14/25 07:10 4 03/14/25 03:05 4 03/13/25 23:44 Laboratory Results 03/14/25 04:15 03/14/25 04:15 PG Care Time/CCT Total # of Minutes Spent Total Time Spent with Patient: Total time spent is greater than 50% in coordination of care (as documented) at patient's floor/unit and/or counseling patient: Coding Level of Care Code 93973 SUB INP/OBS CARE 3/50MIN Diagnoses Left lower lobe pneumonia J18.9 COPD exacerbation J44.1 Acute on chronic respiratory failure with hypoxia J96.21 Hypotension I95.9 CAD, multiple vessel I25.10 Dyslipidemia E78.5 Benign essential hypertension I10
[2025-03-14] MEDS: SODIUM CHLORIDE 0.9% 500 ML IV ONE (12:04)
[2025-03-14] MEDS: SODIUM CHLORIDE 0.9% 250 ML IV ONE (15:41)
[2025-03-14] MEDS: SODIUM CHLORIDE 0.9% 1,000 ML IV SCH (15:41)
[2025-03-14] MEDS: ACETAMINOPHEN 325 MG TAB PO PRN (20:43)
[2025-03-15 07:04] LABS: Hematocrit (blood only) 29.6 % (37.0-47.0); Hemoglobin 9.5 g/dl (12.0-16.0); Immature Granulocytes # (auto) 0.05 K/uL (0.01-0.20); Immature Granulocytes % (auto) 0.8 %; Mean Corpuscular Hemoglobin 31.7 pg (25.0-34.0); Mean Corpuscular Volume 98.7 fL (80.0-100.0); Platelet Count 202 K/uL (130-400); RDW Standard Deviation 48.5 fL (36.4-46.3); Red Blood Count 3.00 M/uL (4.20-5.40); White Blood Count 6.29 K/ul (4.8-10.8)
[2025-03-15 07:12] LABS: Anion Gap 6.0 (3-11); Calcium 8.7 mg/dl (8.6-10.3); Carbon Dioxide 26.0 mmol/L (21-32); Chloride 111.0 mmol/L (98-107); Potassium 3.9 mmol/L (3.5-5.1); Sodium 143.0 mmol/L (136-145)
[2025-03-15 07:17] LABS: Blood Urea Nitrogen 30.0 mg/dl (6-23); Creatinine Clr Calc Pharmacy 55.8 ml/min; Glucose 171.0 mg/dl (70-99(Fasting))
--- NOTE | 2025-03-15 10:54 | Hospitalist Progress Note ---
Date of Service March 15, 2025 Assessment & Plan (1) Left lower lobe pneumonia: Plan: Community-acquired. Sputum culture remains pending. Continue intravenous Levaquin, day 3. Chest x-ray done today, March 15, looks better (2) COPD exacerbation: Plan: Improving with scheduled nebulizer treatments and Solu-Medrol. Treat underlying pneumonia (3) Acute on chronic respiratory failure with hypoxia: Plan: Supplemental oxygen per nasal cannula to maintain saturation greater than 90%. She has now been weaned down to her usual oxygen rate of 2 L/min (4) Hypotension: Plan: Resolved. She received fluid bolus yesterday, March 14. Will follow (5) CAD, multiple vessel: Plan: Currently stable. Continue current medical management (6) Dyslipidemia: Plan: Stable. Continue statin therapy (7) Benign essential hypertension: Plan: Blood pressure was low enough to require IV fluid bolus yesterday, March 14, but appears to have stabilized now. Will follow. Continue verapamil Plan OT and PT assessments will determine ultimate disposition. Pending. Admission and Anticipated Discharge Date Admission Date: March 13, 2025 Subjective Alert and oriented. Stable overall. Chest x-ray done today, March 15, looks better. She is on 2 L of oxygen at this time which is her baseline. Blood pressure is now stable. Awaiting OT and PT evaluations to determine eventual disposition. Review of Systems 2 Review of Systems: Constitutionalno fever or chills ENTno blurred vision, no double vision, no epistaxis, no sore throat Respiratoryno cough, no wheezing, no shortness of breath at rest. She does have dyspnea on exertion Cardiacno palpitations, no chest pain, no syncope Sandra nausea, vomiting, diarrhea, melena, hematochezia GUno urinary retention, no urinary incontinence, no dysuria, no hematuria Musculoskeletalno joint pain, no muscle tenderness Skinno bruising, no rashes, no pruritus Neurono isolated weakness, no paresthesia, no weakness Psychno depression, no anxiety Physical Exam 2 Physical Exam: General-alert and oriented x3, no fever, no chills HEENT-head atraumatic and normocephalic, pupils equal and reactive to light, extraocular muscles intact Neck-no lymphadenopathy or thyromegaly, trachea midline Chest-diminished breath sounds bilaterally. Continue rhonchi at the left base. Bilateral end expiratory wheezes have now resolved. No inspiratory rales. Cardiac-regular rate and rhythm, normal S1 and S2 Abdomen-normal bowel sounds, no hepatosplenomegaly Extremities-no cyanosis, clubbing, or edema Neuro-cranial nerves II through XII intact, motor and sensory function within normal limits, strength symmetrical, no focal deficits Psych-normal affect, normal mood Results & Data Results & Data Vital Signs (Past 12 Hours) Vital Signs Temp Pulse Pulse Resp BP Pulse Ox O2 Del Method 03/15/25 07:31 36.4 C L 72 18 135/71 97 Nasal Cannula 03/15/25 07:07 77 18 91 Nasal Cannula 03/15/25 02:42 36.5 C 63 18 112/65 96 Nasal Cannula 03/15/25 00:11 55 L O2 Flow Rate 03/15/25 07:31 2 03/15/25 07:07 3 03/15/25 02:42 3 03/15/25 00:11 Laboratory Results 03/15/25 05:52 03/15/25 05:52 PG Care Time/CCT Total # of Minutes Spent Total Time Spent with Patient: Total time spent is greater than 50% in coordination of care (as documented) at patient's floor/unit and/or counseling patient: Coding Level of Care Code 22115 SUB INP/OBS CARE 2/35MIN Diagnoses Left lower lobe pneumonia J18.9 COPD exacerbation J44.1 Acute on chronic respiratory failure with hypoxia J96.21 Hypotension I95.9 CAD, multiple vessel I25.10 Dyslipidemia E78.5 Benign essential hypertension I10
--- NOTE | 2025-03-15 11:04 | XRay Report ---
XR chest 2V PA/lateral CLINICAL HISTORY: exac COPD, LLL pna COMPARISON STUDY: 03/13/2025 FINDINGS: Stable CABG. Heart size and pulmonary vasculature are normal. Stable patchy consolidation a t the left lung base. No pneumothorax. IMPRESSION: Stable pneumonia left lung base. ACT 112: Negative or not required by law. Electronically signed by: Perfecto Funes M.D. 03/15/2025 11:02 AM
[2025-03-16 07:58] LABS: Hematocrit (blood only) 29.9 % (37.0-47.0); Hemoglobin 9.5 g/dl (12.0-16.0); Immature Granulocytes # (auto) 0.21 K/uL (0.01-0.20); Immature Granulocytes % (auto) 4.4 %; Mean Corpuscular Hemoglobin 30.9 pg (25.0-34.0); Mean Corpuscular Volume 97.4 fL (80.0-100.0); Platelet Count 196 K/uL (130-400); RDW Standard Deviation 48.4 fL (36.4-46.3); Red Blood Count 3.07 M/uL (4.20-5.40); White Blood Count 4.78 K/ul (4.8-10.8)
[2025-03-16 08:17] LABS: Anion Gap 6.0 (3-11); Blood Urea Nitrogen 26.0 mg/dl (6-23); Calcium 8.8 mg/dl (8.6-10.3); Carbon Dioxide 28.0 mmol/L (21-32); Chloride 108.0 mmol/L (98-107); Creatinine Clr Calc Pharmacy 71.1 ml/min; Glucose 153.0 mg/dl (70-99(Fasting)); Potassium 4.1 mmol/L (3.5-5.1); Sodium 142.0 mmol/L (136-145)
--- NOTE | 2025-03-16 11:26 | Hospitalist Progress Note ---
Date of Service March 16, 2025 Assessment & Plan (1) Left lower lobe pneumonia: Plan: Community-acquired. Sputum culture remains pending. Continue intravenous Levaquin, day 4. Will repeat chest x-ray again tomorrowMarch 17 (2) COPD exacerbation: Plan: Improving with scheduled nebulizer treatments and Solu-Medrol. Treat underlying pneumonia (3) Acute on chronic respiratory failure with hypoxia: Plan: Supplemental oxygen per nasal cannula to maintain saturation greater than 90%. She chronically wears oxygen at 2 L/min per nasal cannula (4) Hypotension: Plan: Resolved. She received fluid bolus on March 14. Will follow (5) CAD, multiple vessel: Plan: Currently stable. Continue current medical management (6) Dyslipidemia: Plan: Stable. Continue statin therapy (7) Benign essential hypertension: Plan: Blood pressure was low enough to require IV fluid bolus on March 14. Now resolved. Will follow. Continue verapamil Plan OT and PT both recommend rehab placement. Admission and Anticipated Discharge Date Admission Date: March 13, 2025 Subjective Alert and oriented. No distress. Solu-Medrol switched to oral prednisone dosing today, March 16. Will repeat chest x-ray again tomorrow, March 17. OT and PT both recommend rehab placement. Continue Levaquin, day 4. Review of Systems 2 Review of Systems: Constitutionalno fever or chills ENTno blurred vision, no double vision, no epistaxis, no sore throat Respiratoryno cough, no wheezing, no shortness of breath at rest. She does have dyspnea on exertion Cardiacno palpitations, no chest pain, no syncope Sandra nausea, vomiting, diarrhea, melena, hematochezia GUno urinary retention, no urinary incontinence, no dysuria, no hematuria Musculoskeletalno joint pain, no muscle tenderness Skinno bruising, no rashes, no pruritus Neurono isolated weakness, no paresthesia, no weakness Psychno depression, no anxiety Physical Exam 2 Physical Exam: General-alert and oriented x3, no fever, no chills HEENT-head atraumatic and normocephalic, pupils equal and reactive to light, extraocular muscles intact Neck-no lymphadenopathy or thyromegaly, trachea midline Chest-diminished breath sounds bilaterally. Continue rhonchi at the left base. Bilateral end expiratory wheezes have now resolved. No inspiratory rales. Cardiac-regular rate and rhythm, normal S1 and S2 Abdomen-normal bowel sounds, no hepatosplenomegaly Extremities-no cyanosis, clubbing, or edema Neuro-cranial nerves II through XII intact, motor and sensory function within normal limits, strength symmetrical, no focal deficits Psych-normal affect, normal mood Results & Data Results & Data Vital Signs (Past 12 Hours) Vital Signs Temp Pulse Resp BP Pulse Ox O2 Del Method O2 Flow Rate 03/16/25 11:11 70 17 97 Nasal Cannula 3 03/16/25 08:15 36.8 C 77 16 148/64 H 96 Nasal Cannula 3.5 03/16/25 07:08 71 17 93 Nasal Cannula 2 03/16/25 03:46 36.6 C 77 16 117/67 92 Nasal Cannula 3 Laboratory Results 03/16/25 07:28 03/16/25 07:28 PG Care Time/CCT Total # of Minutes Spent Total Time Spent with Patient: Total time spent is greater than 50% in coordination of care (as documented) at patient's floor/unit and/or counseling patient: Coding Level of Care Code 61638 SUB INP/OBS CARE 2/35MIN Diagnoses Left lower lobe pneumonia J18.9 COPD exacerbation J44.1 Acute on chronic respiratory failure with hypoxia J96.21 Hypotension I95.9 CAD, multiple vessel I25.10 Dyslipidemia E78.5 Benign essential hypertension I10
--- NOTE | 2025-03-17 08:40 | XRay Report ---
EXAM: XR chest 1V portable CLINICAL HISTORY: LLL pneumonia. TECHNIQUE: An X-ray image of the chest is obtained in AP projection. COMPARISON: A comparison was made with the previous CR study, dated June 12, 2024. FINDINGS: Pulmonary Parenchyma: Blunted left costophrenic angle by minimal pleural effusion/thickening with faint lower lung lobe area of veiling and prominent reticulations. No pulmonary nodules are identified. No evidence of right pleural effusion or pleural thickening. Heart and Mediastinum: Heart size and shape are normal. No mediastinal widening or masses. No hilar or mediastinal lymphadenopathy. Bony Thorax: Prior sternotomy and vertebroplasty were noted in a lower thoracic vertebra. Soft Tissues: Soft tissues overlying the chest wall are unremarkable. IMPRESSION: Blunted left costophrenic angle by minimal pleural effusion/thickening with faint lower lung lobe area of veiling and prominent reticulations, most likely an inflammatory process for clinical assessment (new findings). Electronically signed by Fredi Olivo 03-17-2025 08:40 AM
--- NOTE | 2025-03-17 12:03 | Hospitalist Progress Note ---
Date of Service March 17, 2025 Assessment & Plan (1) Left lower lobe pneumonia: Plan: Community-acquired. Continue intravenous Levaquin, day 5. Repeat chest x-ray done today, March 17, looks about the same. Continued outpatient chest x-rays should be obtained until complete resolution is documented. (2) COPD exacerbation: Plan: Resolved. Solu-Medrol has been switched to oral prednisone therapy which can be down titrated again tomorrow, March 18 (3) Acute on chronic respiratory failure with hypoxia: Plan: Supplemental oxygen per nasal cannula to maintain saturation greater than 90%. She chronically wears oxygen at 2 L/min per nasal cannula. Taper oxygen as tolerated to her usual usage (4) Hypotension: Plan: Resolved. She received fluid bolus on March 14. Will follow (5) CAD, multiple vessel: Plan: Currently stable. Continue current medical management (6) Dyslipidemia: Plan: Stable. Continue statin therapy (7) Benign essential hypertension: Plan: Blood pressure was low enough to require IV fluid bolus on March 14. Now resolved. Will follow. Continue verapamil Plan IPR or SNF placement at discharge. Hopefully tomorrow, March 18 Admission and Anticipated Discharge Date Admission Date: March 13, 2025 Subjective Alert and oriented. No distress. Stable overall. She remains on Levaquin, day 5. Solu-Medrol has been switched over to oral prednisone yesterday, March 16. Prednisone dosage can be down titrated tomorrow, March 18. Chest x-ray done today, March 17, continues to show left lower lobe infiltrate with effusion. This should gradually resolve. She probably should have ongoing outpatient chest x-rays until complete resolution documented. Review of Systems 2 Review of Systems: Constitutionalno fever or chills ENTno blurred vision, no double vision, no epistaxis, no sore throat Respiratoryno cough, no wheezing, no shortness of breath at rest. She does have dyspnea on exertion Cardiacno palpitations, no chest pain, no syncope Sandra nausea, vomiting, diarrhea, melena, hematochezia GUno urinary retention, no urinary incontinence, no dysuria, no hematuria Musculoskeletalno joint pain, no muscle tenderness Skinno bruising, no rashes, no pruritus Neurono isolated weakness, no paresthesia, no weakness Psychno depression, no anxiety Physical Exam 2 Physical Exam: General-alert and oriented x3, no fever, no chills HEENT-head atraumatic and normocephalic, pupils equal and reactive to light, extraocular muscles intact Neck-no lymphadenopathy or thyromegaly, trachea midline Chest-diminished breath sounds bilaterally. Continue rhonchi at the left base. Bilateral end expiratory wheezes have now resolved. No inspiratory rales. Cardiac-regular rate and rhythm, normal S1 and S2 Abdomen-normal bowel sounds, no hepatosplenomegaly Extremities-no cyanosis, clubbing, or edema Neuro-cranial nerves II through XII intact, motor and sensory function within normal limits, strength symmetrical, no focal deficits Psych-normal affect, normal mood Results & Data Results & Data Vital Signs (Past 12 Hours) Vital Signs Temp Pulse Resp BP BP Pulse Ox O2 Del Method 03/17/25 10:45 36.6 C 78 14 148/72 H 95 Nasal Cannula 03/17/25 10:11 77 17 98 Nasal Cannula 03/17/25 07:45 Nasal Cannula 03/17/25 07:13 72 15 95 Nasal Cannula 03/17/25 07:09 36.8 C 73 12 156/83 H 96 Nasal Cannula 03/17/25 03:30 36.8 C 70 16 135/62 96 Nasal Cannula O2 Flow Rate 03/17/25 10:45 3 03/17/25 10:11 3.5 03/17/25 07:45 3 03/17/25 07:13 35 03/17/25 07:09 3 03/17/25 03:30 3 Laboratory Results 03/16/25 07:28 03/16/25 07:28 PG Care Time/CCT Total # of Minutes Spent Total Time Spent with Patient: Total time spent is greater than 50% in coordination of care (as documented) at patient's floor/unit and/or counseling patient: Coding Level of Care Code 62558 SUB INP/OBS CARE 2/35MIN Diagnoses Left lower lobe pneumonia J18.9 COPD exacerbation J44.1 Acute on chronic respiratory failure with hypoxia J96.21 Hypotension I95.9 CAD, multiple vessel I25.10 Dyslipidemia E78.5 Benign essential hypertension I10
[2025-03-17] MEDS: POLYETHYLENE (MIRALAX) 17 GM PACK PO SCH (20:06)
[2025-03-18 08:32] LABS: Hematocrit (blood only) 32.0 % (37.0-47.0); Hemoglobin 10.5 g/dl (12.0-16.0); Mean Corpuscular Hemoglobin 31.3 pg (25.0-34.0); Mean Corpuscular Volume 95.5 fL (80.0-100.0); Platelet Count 214 K/uL (130-400); RDW Standard Deviation 46.1 fL (36.4-46.3); Red Blood Count 3.35 M/uL (4.20-5.40); White Blood Count 5.17 K/ul (4.8-10.8)
[2025-03-18 08:46] LABS: Anion Gap 5.0 (3-11); Blood Urea Nitrogen 21.0 mg/dl (6-23); Calcium 8.7 mg/dl (8.6-10.3); Carbon Dioxide 32.0 mmol/L (21-32); Chloride 104.0 mmol/L (98-107); Creatinine Clr Calc Pharmacy 54.2 ml/min; Glucose 122.0 mg/dl (70-99(Fasting)); Potassium 4.1 mmol/L (3.5-5.1); Sodium 141.0 mmol/L (136-145)
[2025-03-18 09:04] LABS: Immature Granulocytes # (auto) 0.37 K/uL (0.01-0.20); Immature Granulocytes % (auto) 7.2 %; Polychromasia 1+; Tear Drop Cells 1+
[2025-03-18] MEDS ORDERED: ALBUT/IPRATROP 3MG/0.5MG NEB 3 ML VIAL NEB PRN (11:11)
--- NOTE | 2025-03-18 12:43 | Hospitalist Progress Note ---
Date of Service March 18, 2025 Assessment & Plan (1) Left lower lobe pneumonia: (2) COPD exacerbation: (3) Acute on chronic respiratory failure with hypoxia: (4) Hypotension: (5) CAD, multiple vessel: (6) Dyslipidemia: (7) Benign essential hypertension: Plan 65-year-old woman with history of COPD and chronic respiratory failure on 2 L O2 NC at baseline. She had productive cough with worsened SOB and weakness times several days at home. She was found to have left lower lobe pneumonia and COPD exacerbation with acute on chronic respiratory failure on admission. She was admitted for further evaluation and treatment. #Community-acquired pneumonia - S/p IV Levaquin x 5 days, no further antibiotics indicated - Repeat CXR relatively unchanged - recommend outpatient CXR to ensure complete resolution #COPD exacerbation - Resolved. Solu-Medrol has been switched to oral prednisone therapy. Titrated down to 10 mg BID, continue to taper #Chronic respiratory failure with hypoxia - Supplemental oxygen per nasal cannula to maintain saturation greater than 90%. She chronically wears oxygen at 2 L/min per nasal cannula. Now on her usual requirement #HypotensionResolved. She received fluid bolus on March 14. Will follow #CADCurrently stable. Continue current medical management #Dyslipidemiastable. Continue statin therapy #Hypertensioncontinue verapamil VTE PPx: Heparin on hold given abdominal bruising. Continue with SCDs Dispo: Awaiting rehab placement Downgraded off telemetry Tapered steroids Admission and Anticipated Discharge Date Admission Date: March 13, 2025 Subjective Patient seen and evaluated at bedside. She reports continued improvement in her breathing status. She did have a couple episodes of productive cough with "dark mucus." She denies wheezing. She continues to use her incentive spirometer and has made good improvements. She does have some mild abdominal tenderness secondary to bruising from her heparin injections. We discussed her treatment plan. Continuing to wait for rehab placement. No additional complaints or concerns at this time. Telemetry reviewed: NSR 60-90s. Physical Exam Physical Exam: General: No acute distress, nondiaphoretic, well-developed, well-nourished. Skin: Warm, dry. No rashes or peripheral edema noted. Cardiac: Regular rate and rhythm without murmurs gallops or rubs. Pulm: Diminished breath sounds bilaterally. No wheezing, rales, or rhonchi noted. Normal respiratory effort. 93% on 2 L NC (baseline). Abdominal: Soft, nontender, nondistended. Bowel sounds present. Diffuse bruising across lower abdomen secondary to heparin injections. Neuro: A&O x3. No focal neurological deficits. Results & Data Results & Data Vital Signs (Past 12 Hours) Vital Signs Temp Pulse Pulse Resp BP BP Pulse Ox 03/18/25 11:03 71 03/18/25 11:01 03/18/25 10:58 97.7 F 82 18 122/63 93 03/18/25 08:01 98.6 F 71 18 136/62 95 03/18/25 07:53 73 18 93 03/18/25 02:41 98.1 F 65 18 145/75 H 96 O2 Del Method O2 Flow Rate 03/18/25 11:03 03/18/25 11:01 Nasal Cannula 2 03/18/25 10:58 Nasal Cannula 2 03/18/25 08:01 Nasal Cannula 2 03/18/25 07:53 Nasal Cannula 2 03/18/25 02:41 Nasal Cannula 2 Laboratory Results Reviewed CBC with differential Reviewed BMP PG Care Time/CCT Total # of Minutes Spent Total Time Spent with Patient: Total time spent is greater than 50% in coordination of care (as documented) at patient's floor/unit and/or counseling patient: Coding Level of Care Code 33607 SUB INP/OBS CARE 3/50MIN Diagnoses Left lower lobe pneumonia J18.9 COPD exacerbation J44.1 Acute on chronic respiratory failure with hypoxia J96.21 Hypotension I95.9 CAD, multiple vessel I25.10 Dyslipidemia E78.5 Benign essential hypertension I10
[2025-03-18] MEDS: ALBUT/IPRATROP 3MG/0.5MG NEB 3 ML VIAL NEB SCH (19:32)
[2025-03-19 07:47] LABS: Hematocrit (blood only) 34.1 % (37.0-47.0); Hemoglobin 11.2 g/dl (12.0-16.0); Immature Granulocytes # (auto) 0.26 K/uL (0.01-0.20); Immature Granulocytes % (auto) 4.4 %; Mean Corpuscular Hemoglobin 31.8 pg (25.0-34.0); Mean Corpuscular Volume 96.9 fL (80.0-100.0); Platelet Count 241 K/uL (130-400); RDW Standard Deviation 47.9 fL (36.4-46.3); Red Blood Count 3.52 M/uL (4.20-5.40); White Blood Count 5.88 K/ul (4.8-10.8)
[2025-03-19 08:16] LABS: Anion Gap 6.0 (3-11); Blood Urea Nitrogen 25.0 mg/dl (6-23); Calcium 8.4 mg/dl (8.6-10.3); Carbon Dioxide 30.0 mmol/L (21-32); Chloride 105.0 mmol/L (98-107); Creatinine Clr Calc Pharmacy 52.2 ml/min; Glucose 135.0 mg/dl (70-99(Fasting)); Potassium 4.0 mmol/L (3.5-5.1); Sodium 141.0 mmol/L (136-145)
--- NOTE | 2025-03-19 13:47 | Hospitalist Progress Note ---
Date of Service March 19, 2025 Assessment & Plan (1) Left lower lobe pneumonia: (2) COPD exacerbation: (3) Acute on chronic respiratory failure with hypoxia: (4) Hypotension: (5) CAD, multiple vessel: (6) Dyslipidemia: (7) Benign essential hypertension: Plan 65-year-old woman with history of COPD and chronic respiratory failure on 2 L O2 NC at baseline. She had productive cough with worsened SOB and weakness times several days at home. She was found to have left lower lobe pneumonia and COPD exacerbation with acute on chronic respiratory failure on admission. She was admitted for further evaluation and treatment. #Community-acquired pneumonia - S/p IV Levaquin x 5 days, no further antibiotics indicated - Repeat CXR relatively unchanged - recommend outpatient CXR to ensure complete resolution ~4wks #COPD exacerbation - Resolved. Solu-Medrol has been switched to oral prednisone therapy. wean prednisone #Chronic respiratory failure with hypoxia - Supplemental oxygen per nasal cannula to maintain saturation greater than 90%. She chronically wears oxygen at 2 L/min per nasal cannula. Now on her usual requirement #HypotensionResolved. She received fluid bolus on March 14. BP now reasonable #CADCurrently stable. Continue current medical management #Dyslipidemiastable. Continue statin therapy #Hypertensioncontinue verapamil VTE PPx: Heparin on hold given abdominal bruising. Continue with SCDs Dispo: Awaiting rehab placement Admission and Anticipated Discharge Date Admission Date: March 13, 2025 Subjective feeling ok but weak. overall slowly ipmroving. awaiting insurance decision on rehab Review of Systems Review of Systems: All systems reviewed & are unremarkable except as noted in HPI & below Physical Exam Physical Exam: gen aaox3 pleasant nad heent nc at mmm breathing unlabored no accessory muscles good effort skin no rashes no pallor or icterus neuro no focal deficits Results & Data Results & Data Vital Signs (Past 12 Hours) Vital Signs Temp Pulse Resp BP BP Pulse Ox O2 Del Method 03/19/25 10:48 97.5 F L 79 18 119/68 94 Nasal Cannula 03/19/25 09:51 Nasal Cannula 03/19/25 07:21 96.8 F L 98 H 17 193/81 H 94 Room Air 03/19/25 07:20 97.7 F 85 18 127/73 95 Nasal Cannula 03/19/25 07:12 80 16 95 Nasal Cannula O2 Flow Rate 03/19/25 10:48 2 03/19/25 09:51 2 03/19/25 07:21 03/19/25 07:20 2 03/19/25 07:12 2 PG Care Time/CCT Total # of Minutes Spent Total Time Spent with Patient: Total time spent is greater than 50% in coordination of care (as documented) at patient's floor/unit and/or counseling patient: Coding Level of Care Code 55164 SUB INP/OBS CARE 2/35MIN Diagnoses Left lower lobe pneumonia J18.9 COPD exacerbation J44.1 Acute on chronic respiratory failure with hypoxia J96.21 Hypotension I95.9 CAD, multiple vessel I25.10 Dyslipidemia E78.5 Benign essential hypertension I10
--- NOTE | 2025-03-19 18:08 | Hospitalist Progress Note ---
Date of Service March 19, 2025 Assessment & Plan Admission and Anticipated Discharge Date Admission Date: March 13, 2025 Subjective Feeling better than yesterday but still feels weak. No overnight events or new concerns. Review of Systems Review of Systems: As per HPI Results & Data Results & Data Vital Signs (Past 12 Hours) Vital Signs Temp Pulse Resp BP BP Pulse Ox O2 Del Method 03/19/25 10:48 36.4 C L 79 18 119/68 94 Nasal Cannula 03/19/25 09:51 Nasal Cannula 03/19/25 07:21 36.0 C L 98 H 17 193/81 H 94 Room Air 03/19/25 07:20 36.5 C 85 18 127/73 95 Nasal Cannula 03/19/25 07:12 80 16 95 Nasal Cannula 03/19/25 01:17 36.6 C 87 20 114/57 L 96 Nasal Cannula O2 Flow Rate 03/19/25 10:48 2 03/19/25 09:51 2 03/19/25 07:21 03/19/25 07:20 2 03/19/25 07:12 2 03/19/25 01:17 2
--- NOTE | 2025-03-20 18:05 | Hospitalist Progress Note ---
Date of Service March 20, 2025 Assessment & Plan (1) Hypotension: (2) Acute on chronic respiratory failure with hypoxia: Plan 65-year-old woman with history of COPD and chronic respiratory failure on 2 L O2 NC at baseline. She had productive cough with worsened SOB and weakness times several days at home. She was found to have left lower lobe pneumonia and COPD exacerbation with acute on chronic respiratory failure on admission. She was admitted for further evaluation and treatment. #Community-acquired pneumonia - S/p IV Levaquin x 5 days, no further antibiotics indicated - Repeat CXR relatively unchanged - recommend outpatient CXR to ensure complete resolution ~4wks #COPD exacerbation - Resolved. Solu-Medrol has been switched to oral prednisone therapy. wean prednisone #Chronic respiratory failure with hypoxia - Supplemental oxygen per nasal cannula to maintain saturation greater than 90%. She chronically wears oxygen at 2 L/min per nasal cannula. Now on her usual requirement #HypotensionResolved. She received fluid bolus on March 14. BP now reasonable #CADCurrently stable. Continue current medical management #Dyslipidemiastable. Continue statin therapy #Hypertensioncontinue verapamil VTE PPx: Heparin on hold given abdominal bruising. Continue with SCDs Dispo: Awaiting rehab placement Admission and Anticipated Discharge Date Admission Date: March 13, 2025 Supervising Physician Co-Signing Physician Notes I personally examined the patient and verified all mcclure points of history and exam, discussed case, and agree with decision making with Dr Pollard feeling about the same. still waiting on insurance approval for SNF. still doesn't feel well enough to go home vitals noted nad heent nc at mmm breathing unlabored no accessory muscles good effort skin no rashes no pallor or icterus neuro no focal deficits CAP - resolved COPD exac - weaned steroids to 10mg daily weakness/deconditioning - PT/OT, for SNF Subjective Doing well overall. Little weak. Waiting for the placement Review of Systems Review of Systems: As per HPI Physical Exam Physical Exam: gen aaox3 pleasant nad heent nc at mmm breathing unlabored no accessory muscles good effort skin no rashes no pallor or icterus neuro no focal deficits Results & Data Results & Data Vital Signs (Past 12 Hours) Vital Signs Temp Pulse Pulse Resp BP Pulse Ox O2 Del Method 03/20/25 07:33 36.5 C 68 16 121/70 93 Nasal Cannula 03/20/25 07:21 74 18 92 Nasal Cannula O2 Flow Rate 03/20/25 07:33 2 03/20/25 07:21 2 Resident Activity Tracking Resident Involvement: Resident Care Provided Care Provided: Adult Hospital Medicine
--- NOTE | 2025-03-20 18:13 | Billing Data ---
Date of Service March 20, 2025 Coding Level of Care Code 03015 SUB INP/OBS CARE
--- NOTE | 2025-03-21 10:36 | Hospitalist Progress Note ---
Date of Service March 21, 2025 Assessment & Plan (1) Hypotension: (2) Acute on chronic respiratory failure with hypoxia: Plan 65-year-old woman with history of COPD and chronic respiratory failure on 2 L O2 NC at baseline. She had productive cough with worsened SOB and weakness times several days at home. She was found to have left lower lobe pneumonia and COPD exacerbation with acute on chronic respiratory failure on admission. She was admitted for further evaluation and treatment. #Community-acquired pneumonia - S/p IV Levaquin x 5 days, no further antibiotics indicated - Repeat CXR relatively unchanged - recommend outpatient CXR to ensure complete resolution ~4wks #COPD exacerbation - Resolved. Solu-Medrol has been switched to oral prednisone therapy. wean prednisone #Chronic respiratory failure with hypoxia - Supplemental oxygen per nasal cannula to maintain saturation greater than 90%. She chronically wears oxygen at 2 L/min per nasal cannula. Now on her usual requirement #HypotensionResolved. She received fluid bolus on March 14. BP now reasonable #CADCurrently stable. Continue current medical management #Dyslipidemiastable. Continue statin therapy #Hypertensioncontinue verapamil VTE PPx: Heparin on hold given abdominal bruising. Continue with SCDs Dispo: Awaiting rehab placement Admission and Anticipated Discharge Date Admission Date: March 13, 2025 Supervising Physician Co-Signing Physician Notes I personally examined the patient and verified all mcclure points of history and exam, discussed case, and agree with decision making with Dr Pollard no new problems. hopefully will hear from insurance soon re: snf vitals noted nad heent nc at mmm breathing unlabored no accessory muscles good effort skin no rashes no pallor or icterus neuro no focal deficits CAP - resolved, treatment completed. recovery will take a while COPD exac - weaned steroids to 10mg daily - probably dc in the next day or two weakness/deconditioning - PT/OT, for SNF Subjective Doing well overall. Little weak. Waiting for the placement Review of Systems Review of Systems: As per HPI Results & Data Results & Data Vital Signs (Past 12 Hours) Vital Signs Temp Pulse Resp BP Pulse Ox O2 Del Method O2 Flow Rate 03/21/25 07:26 36.5 C 73 16 120/69 96 Room Air 03/21/25 07:19 80 18 97 Nasal Cannula 2 03/20/25 22:54 36.6 C 81 15 112/66 92 Nasal Cannula 2 Resident Activity Tracking Resident Involvement: Resident Care Provided Care Provided: Adult Hospital Medicine
--- NOTE | 2025-03-21 15:48 | Billing Data ---
Date of Service March 21, 2025 Coding Level of Care Code 66437 SUB INP/OBS CARE
[2025-03-22 07:54] VITALS: BP 110/66; RESP 18; TEMP 98.1; O2SAT 93
--- NOTE | 2025-03-22 10:19 | Hospitalist Progress Note ---
Date of Service March 22, 2025 Assessment & Plan (1) Hypotension: (2) Acute on chronic respiratory failure with hypoxia: Plan 65-year-old woman with history of COPD and chronic respiratory failure on 2 L O2 NC at baseline. She had productive cough with worsened SOB and weakness times several days at home. She was found to have left lower lobe pneumonia and COPD exacerbation with acute on chronic respiratory failure on admission. She was admitted for further evaluation and treatment. #Community-acquired pneumonia - S/p IV Levaquin x 5 days, no further antibiotics indicated - Repeat CXR relatively unchanged - recommend outpatient CXR to ensure complete resolution ~4wks #COPD exacerbation - Resolved. Solu-Medrol has been switched to oral prednisone therapy. wean prednisone #Chronic respiratory failure with hypoxia - Supplemental oxygen per nasal cannula to maintain saturation greater than 90%. She chronically wears oxygen at 2 L/min per nasal cannula. Now on her usual requirement #HypotensionResolved. She received fluid bolus on March 14. BP now reasonable #CADCurrently stable. Continue current medical management #Dyslipidemiastable. Continue statin therapy #Hypertensioncontinue verapamil VTE PPx: Heparin on hold given abdominal bruising. Continue with SCDs Dispo: Awaiting rehab placement Admission and Anticipated Discharge Date Admission Date: March 13, 2025 Subjective Doing well overall. Little weak. Waiting for the placement Review of Systems Review of Systems: As per HPI Physical Exam Physical Exam: gen aaox3 pleasant nad heent nc at mmm breathing unlabored no accessory muscles good effort skin no rashes no pallor or icterus neuro no focal deficits Results & Data Results & Data Vital Signs (Past 12 Hours) Vital Signs Temp Pulse Resp BP BP Pulse Ox O2 Del Method 03/22/25 07:53 36.7 C 76 18 110/66 93 Room Air 03/22/25 07:01 82 16 94 Nasal Cannula 03/21/25 23:05 36.8 C 72 18 118/72 96 Nasal Cannula O2 Flow Rate 03/22/25 07:53 03/22/25 07:01 2 03/21/25 23:05
--- NOTE | 2025-03-22 12:29 | Discharge Summary ---
Date of Service March 22, 2025 Admission HPI Per Admitting Provider 65-year-old female with COPD and chronic respiratory failure on 2 L of oxygen per nasal cannula at home. For the past several days she has had a productive cough with worsening shortness of breath and weakness. She denies hemoptysis. She has no pleuritic pain. She was seen in the ED and found to have left lower lobe pneumonia with exacerbation of COPD COPD and acute on chronic respiratory failure. She denies chest pain. No acute EKG changes. She is admitted for further evaluation and treatment Admission Exam Per Admitting Provider Physical Exam: General-alert and oriented x3, no fever, no chills HEENT-head atraumatic and normocephalic, pupils equal and reactive to light, extraocular muscles intact Neck-no lymphadenopathy or thyromegaly, trachea midline Chest-diminished breath sounds bilaterally. Rhonchi at the left base. Bilateral end expiratory wheezes. No respiratory rales. Cardiac-regular rate and rhythm, normal S1 and S2 Abdomen-normal bowel sounds, no hepatosplenomegaly Extremities-no cyanosis, clubbing, or edema Neuro-cranial nerves II through XII intact, motor and sensory function within normal limits, strength symmetrical, no focal deficits Psych-normal affect, normal mood Principal Diagnosis 1. Acute on Chronic Respiratory Failure with Hypoxia 2. Hypotension Discharge Exam Constitutional WD/WN, vitals as above Neck trachea midline Respiratory normal respiratory effort; no respiratory distress Cardiovascular Rate/Rhythm: regular rate and regular rhythm Skin + incision (dry and clean) Neurologic CN's II-XI intact bilaterally and moves all extremities Psychiatric A+Ox3, euthymic affect Discharge Data Allergies Allergy/AdvReac Type Severity Reaction Status Date / Time Iodinated Contrast Media Allergy Intermediate Rash Verified 03/11/25 11:16 nitrofurantoin Allergy Intermediate Hives Verified 03/11/25 11:16 senna Allergy Intermediate Hives Verified 03/11/25 11:16 (From X-Prep), Takes senokot at home Beta-Blockers AdvReac Intermediate Hypotension Verified 03/11/25 11:16 (Beta-Adrenergic Bloc rizatriptan AdvReac Intermediate Nausea and Verified 03/11/25 11:16 Vomiting sumatriptan AdvReac Intermediate Worsened Verified 03/11/25 11:16 Migraine zolpidem AdvReac Intermediate Nightmares Verified 03/11/25 11:16 Consultations 03/13/25 11:11 ED Decision to Admit Stat Hospital Course (1) Hypotension: (2) Acute on chronic respiratory failure with hypoxia: Plan 65-year-old woman with history of COPD and chronic respiratory failure on 2 L O2 NC at baseline. She had productive cough with worsened SOB and weakness times several days at home. She was found to have left lower lobe pneumonia and COPD exacerbation with acute on chronic respiratory failure on admission. She was admitted for further evaluation and treatment. #Community-acquired pneumonia - S/p IV Levaquin x 5 days, no further antibiotics indicated - Repeat CXR relatively unchanged - recommend outpatient CXR to ensure complete resolution ~4wks in the outpatient. -Followup with PCP within next week #COPD exacerbation - Resolved. Solu-Medrol has been switched to oral prednisone therapy. take Prednsione 10 mg tablet for alternate days for 6 days and then Stop. #Chronic respiratory failure with hypoxia - Supplemental oxygen per nasal cannula to maintain saturation greater than 90%. She chronically wears oxygen at 2 L/min per nasal cannula. Now on her usual requirement #HypotensionResolved. She received fluid bolus on March 14. BP now reasonable Total Time Total Time Spent Total Time Spent (In Minutes): less than 30 Discharge Plan Discharge Items Patient Disposition: Personal Fpc Reason For Visit: LLL PNEUMONIA, EXCAC COPD Discharge Diagnosis: 1. Acute on Chronic Respiratory Failure with Hypoxia 2. Hypotension Condition on Discharge: Fair Activity: Per Instructions section Follow-up/Referrals: Kailee Lam PA-C [Primary Care Provider] - Addtl Attending Provider Instructions: 65-year-old woman with history of COPD and chronic respiratory failure on 2 L O2 NC at baseline. She had productive cough with worsened SOB and weakness times several days at home. She was found to have left lower lobe pneumonia and COPD exacerbation with acute on chronic respiratory failure on admission. She was admitted for further evaluation and treatment. #Community-acquired pneumonia - S/p IV Levaquin x 5 days, no further antibiotics indicated - Repeat CXR relatively unchanged - recommend outpatient CXR to ensure complete resolution ~4wks in the outpatient. -Followup with PCP within next week #COPD exacerbation - Resolved. Solu-Medrol has been switched to oral prednisone therapy. take Prednsione 10 mg tablet for alternate days for 6 days and then Stop. #Chronic respiratory failure with hypoxia - Supplemental oxygen per nasal cannula to maintain saturation greater than 90%. She chronically wears oxygen at 2 L/min per nasal cannula. Now on her usual requirement #HypotensionResolved. She received fluid bolus on March 14. BP now reasonable Pending Studies at Discharge: No Stand-Alone Forms: My [facility] (f. [employer]), Smoking Cessation Skilled Items Patient informed of condition?: Yes DNR: No Discharge Level of Care: Skilled Communicable Disease: No Discharge Prognosis: Stable Lines: None Urinary Catheter: No Medications and DC Order Prescriptions: New prednisone 10 mg Tablet 10 mg PO Q OTHER DAY 3 Days Qty: 3 0RF Rx Instructions: Take Prednisone 10 mg every alternate days for for 6 days. and then stop Continued ranolazine 500 mg tablet extended release 12 hr 500 mg PO BID Qty: 180 3RF atorvastatin [Lipitor] 80 mg tablet 80 mg PO QPM tramadol 50 mg tablet 50 mg PO DAILY PRN (Reason: Pain) baclofen 10 mg tablet 10 mg PO HS Qty: 90 3RF Rx Instructions: TAKE 1 TABLET BY MOUTH AT BEDTIME magnesium oxide 400 mg magnesium tablet 600 mg PO HS clopidogrel [Plavix] 75 mg tablet 75 mg PO QAM gabapentin [Neurontin] 300 mg capsule 300 mg PO BID multivitamin [One Daily Multivitamin] Tablet 1 tab PO QAM cyanocobalamin (vitamin B-12) [Vitamin B-12] 1,000 mcg Tablet 1,000 mcg PO QAM aspirin [Rula Low Dose Aspirin] 81 mg Tablet,Delayed Release (Dr/Ec) 81 mg PO HS coenzyme Q10 [Co Q-10] 100 mg Capsule 200 mg PO HS omega 1-zxv-vbv-fish oil [Fish Oil] 1,000 mg (120 mg-180 mg) Capsule 1 cap PO BID melatonin 10 mg Tablet 10 mg PO HS cholecalciferol (vitamin D3) [Vitamin D3] 25 mcg (1,000 unit) capsule 2,000 unit PO QAM buspirone 10 mg Tablet 10 mg PO BID bupropion HCl [Wellbutrin XL] 150 mg tablet extended release 24 hr 150 mg PO QAM lamotrigine [Lamictal] 200 mg tablet 200 mg PO HS lamotrigine [Lamictal] 100 mg tablet 150 mg PO QAM ibandronate 150 mg tablet 150 mg PO MONTHLY Rx Instructions: takes end of the month quetiapine [Seroquel] 200 mg Tablet 200 mg PO HS Qty: 30 0RF nitroglycerin 400 mcg/spray Aerosol,[place] 400 mcg sublingual Q5M PRN (Reason: Chest Pain) Rx Instructions: Every 5 minutes acetaminophen 650 mg Tablet Extended Release 1,300 mg PO Q8H ascorbic acid (vitamin C) [Vitamin C] 500 mg Tablet 500 mg PO DAILY polyethylene glycol 3350 [Miralax] 17 gram/dose Powder 17 g PO DAILY duloxetine 30 mg capsule,delayed release(DR/EC) 30 mg PO QAM diclofenac sodium 1 % Gel 2 g TOPICAL QID Rx Instructions: apply to single elbow, wrist or hand; for hand includes palm/fingers/back of hand Hyper-Perez 3.5 % Solution For Nebulization 4 ml INHALATION DIRECTED PRN (Reason: Shortness Of Breath/Mucus Production) Rx Instructions: Use as needed for shortness of breath/mucus production lidocaine 5 % Ointment 1 applic TOPICAL BID albuterol sulfate [Ventolin HFA] 90 mcg/actuation HFA aerosol inhaler 2 puff INHALATION Q4H PRN (Reason: Shortness Of Breath) Nurtec ODT 75 mg tablet,disintegrating 75 mg PO DAILY PRN (Reason: Migraines) Rx Instructions: 75 mg PO ONCE A DAY PRN. MAX DOSE 1 PER 24 HOURS sucralfate [Carafate] 1 gram tablet 1 g PO ACHS PRN (Reason: Abdominal Pain) Rx Instructions: TAKE 1 TABLET BY MOUTH BEFORE MEAL(S) AND AT BEDTIME NEEDED FOR ABDOMINAL PAIN pantoprazole [Protonix] 40 mg tablet,delayed release (DR/EC) 40 mg PO BID verapamil 240 mg capsule,ext rel. pellets 24 hr 240 mg PO QAM Discharge Orders: Discharge Order (Routine); Ordered 03/22/25 Ordered By: Jemma Pollard Admission Data Admit Date/Time: 03/13/25 11:52 Attending Provider: Yasmany Govea Admit Provider: Adolfo Doty Primary Care Provider: Kailee Lam Other Providers: [facility]; [facility]; Adolfo Doty Supervising Physician Co-Signing Physician Notes I personally examined the patient and verified all mcclure points of history and exam, discussed case, and agree with decision making with Dr Pollard no new problems. for SNF today vitals noted nad heent nc at mmm breathing unlabored no accessory muscles good effort skin no rashes no pallor or icterus neuro no focal deficits CAP - resolved, treatment completed. recovery will take a while COPD exac - ongoing chronic management, otherwise as above weakness/deconditioning - PT/OT, for SNF Resident Activity Tracking Resident Involvement: Resident Care Provided Care Provided: Adult Hospital Medicine
--- NOTE | 2025-03-22 12:41 | Billing Data ---
Date of Service March 22, 2025 Coding Level of Care Code 85182 IN/OBS DISCH 30 MIN/LESS
[2025-03-22 13:14] VITALS: PULSE 74
== END 2025-03-22 14:37 | disposition home health service (06) | DRG 193 ==
LOC: SUATTDRO → ED 08:46 → EDINP 11:52 → SUATTDRO 11:52 → 2W 14:43 → 3N 03-19 16:31

== ENCOUNTER 2025-06-21 15:05 | Inpatient (IN) ==
[2025-06-21] MEDS: ALBUT/IPRATROP 3MG/0.5MG NEB 3 ML VIAL INH STA (15:29)
[2025-06-21 15:39] LABS: Base Excess VBG 5.3 mEq/L; HCO3 VBG 34 mmol/L; Oxygen Saturation VBG < 60.0 %; PCO2 VBG 65 mmHg (38-50); PO2 VBG 29 mmHg; pH VBG 7.32 (7.36-7.41)
[2025-06-21 15:49] LABS: Hematocrit (blood only) 33.9 % (37.0-47.0); Hemoglobin 10.6 g/dL (12.0-16.0); Immature Granulocytes # (auto) 0.02 K/uL (0.01-0.20); Immature Granulocytes % (auto) 0.4 %; Mean Corpuscular Hemoglobin 29.7 pg (25.0-34.0); Mean Corpuscular Volume 95.0 fL (80.0-100.0); Platelet Count 236 K/uL (130-400); RDW Standard Deviation 48.1 fL (36.4-46.3); Red Blood Count 3.57 M/uL (4.20-5.40); White Blood Count 5.13 K/ul (4.8-10.8)
[2025-06-21 16:03] LABS: Alanine Aminotransferase 14.0 U/L (7-52); Albumin Globulin Ratio 1.6 (0.9-2); Albumin Level 4.4 gm/dl (3.4-5.0); Alkaline Phosphatase 59.0 U/L (34-104); Anion Gap 6.0 (3-11); Bilirubin,Total 0.6 mg/dl (0.2-1.0); Blood Urea Nitrogen 15.0 mg/dl (6-23); Calcium 9.6 mg/dl (8.6-10.3); Carbon Dioxide 31.0 mmol/L (21-32); Chloride 103.0 mmol/L (98-107); Creatinine Clr Calc Pharmacy 54.0 ml/min; Globulin 2.8 gm/dl (2.5-4.0); Glucose 108.0 mg/dl (70-99(Fasting)); Magnesium 2.2 mg/dl (1.7-2.4); Potassium 4.0 mmol/L (3.5-5.1); Sodium 140.0 mmol/L (136-145); Total Protein 7.2 gm/dl (6.0-8.3)
[2025-06-21 16:30] LABS: Chlamydia pneumoniae PCR Not Detected (NotDetected); Coronavirus 229E PCR Not Detected (NotDetected); Coronavirus CoV-2 (COVID19)PCR Not Detected (NotDetected); Coronavirus HKU1 PCR Not Detected (NotDetected); Coronavirus NL63 PCR Not Detected (NotDetected); Coronavirus OC43PCR Not Detected (NotDetected); Human Metapneumovirus PCR Not Detected (NotDetected); Parainfluenza Virus 1 PCR Not Detected (NotDetected); Parainfluenza Virus 2 PCR Not Detected (NotDetected); Parainfluenza Virus 3 PCR Not Detected (NotDetected); Parainfluenza Virus 4 PCR Not Detected (NotDetected); Respiratory Syncytial VirusPCR Not Detected (NotDetected); Rhinovirus/Enterovirus PCR Not Detected (NotDetected)
[2025-06-21] MEDS: cefTRIAXone SODIUM 1,000 MG/50 ML BAG IV STA (16:41)
[2025-06-21] MEDS: ALBUT/IPRATROP 3MG/0.5MG NEB 3 ML VIAL NEB STA (16:41)
[2025-06-21] MEDS: DOXYCYCLINE HYCLATE 100 MG CAP PO STA (16:41)
--- NOTE | 2025-06-21 17:11 | Emergency Department Note ---
Impression & Plan Acute exacerbation of chronic obstructive pulmonary disease, Acute on chronic respiratory failure with hypoxia and hypercapnia, Acute respiratory acidosis, Chronic anemia ED Provider Note NAME: JULIANA BARAHONA AGE: 65 SEX: F : 1960 ARRIVES VIA: Ambulance INFORMANT: Patient, EMS ED PROVIDER(S): Piotr Aleman DO CHIEF COMPLAINT: SOB HPI: This is a 65-year-old female with the PMHx of hypertension, hyperlipidemia, COPD, CAD s/p CABG, GERD, DM2 and chronic hypoxemic respiratory failure on 2 L of low-flow nasal cannula at baseline presenting to [facility] for further evaluation of SOB. Patient is accompanied by EMS who provide additional history. EMS states the patient was at her primary care office today for complaints of increased weakness, fatigue, URI symptoms and shortness of breath. They noted that she had to increase her oxygen to 4 L of low-flow nasal cannula and she was visibly tachypneic leading to EMS dispatch. Patient arrives to the emergency department with complaints of productive cough of green sputum. She reports worsening dyspnea at rest. Patient states she does not feel safe at home. Patient recently admitted to the hospital for COPD secondary to community- acquired pneumonia. This led to an extensive rehabilitation stay. They deny fever or chills. Denies chest pain or palpitations. They deny abdominal pain, nausea and vomiting. No urinary complaints. No recent changes in bowel movements. Patient denies recent changes in medications or OTC supplements. Patient offers no other complaints, today. ADDITIONAL HISTORY OBTAINED: Per HPI Chronic Medical/Social Conditions Affecting Care: Per HPI PAST MEDICAL HISTORY: See Below PAST SURGICAL HISTORY: See Below FAMILY HISTORY: See Below SOCIAL HISTORY: See Below HOME MEDICATIONS: See Below ALLERGIES: See Below VITALS: See Below PHYSICAL EXAMINATION: GENERAL: Sitting up in bed, alert, well appearing, well nourished, no distress, non-toxic EYE EXAM: normal conjunctiva. OROPHARYNX: no exudate, no erythema, lips, buccal mucosa, and tongue normal and mucous membranes are moist NECK: supple, no nuchal rigidity, no adenopathy, non-tender LUNGS: Severely diminished BS in all lung amezcua. Normal chest wall mechanics HEART: no murmurs, regular rate, regular rhythm ABDOMEN: abdomen soft, non-tender, no masses, no rebound or guarding. BACK: Back is symmetrical on inspection and there is no deformity, no midline tenderness, no CVA tenderness. SKIN: no rashes and no bruising UPPER EXTREMITIES: upper extremities are grossly normal. LOWER EXTREMITIES: No pitting edema. NEURO EXAM: Normal sensorium, GCS 15, normal speech, no gross weakness of arms, no gross weakness of legs. MEDICAL DECISION MAKING: Differential diagnoses includes but not limited to ACS, unstable angina, dysrhythmia, PNA, hypervolemia/pulmonary edema, CHF exacerbation, COPD exacerbation, PE, pneumothorax, pericardial effusion, cardiac tamponade, anxiety/psychogenic, viral URI In summary, this is a 65 year old female who presented with SOB. Differential as above. Nursing notes and pertinent past medical records reviewed. Vital signs reviewed and the patient is intermittently tachypneic but otherwise afebrile and HDS. Her oxygenation status is stable but increased from 2 to 4 L LFNC as she is concerned and dyspneic. History and presentation revealed longstanding history of chronic hypoxemic hypercapnic respiratory failure. Recently started on CPAP as an outpatient but unable to tolerate this. Now with worsening symptoms of dyspnea, fatigue and weakness. Her cough is now productive again. Patient may benefit from antibiotics and treatment for COPD exacerbation. Physical examination revealed as above. As a result of my initial evaluation, IV access was established and the patient was placed on CCRM. Therapeutics ordered include IV steroids and duonebs. Antibiotics for CAP coverage was started. Diagnostics interpreted by me include EKG and cardiac monitoring as listed below: -Cardiac Monitoring: An order was placed for continuous cardiac monitoring. The monitor shows a rate of 70-80s with regular rhythm. -ECG: normal sinus rhythm at a ventricular rate of 75 bpm. There is an incomplete right bundle branch block. No significant ST segment changes to suggest STEMI. Intervals are within normal limits otherwise. Patient completed laboratory studies and imaging. Results independently interpreted by me are chronic anemia without a significant leukocytosis. There is no significant electrolyte derangements or significant kidney dysfunction from baseline. No changes in LFTs. Normal procal. Negative viral screen. The patient was managed with steroids and multiple DuoNebs. Patient states she is feeling weak and fatigued. She does not feel like she can safely go home. Patient was not agreeable to BPAP as discussed as her CPAP machine was recently initiated. She has struggled to tolerate this. Ultimately, the decision was made to admit the patient for COPD exacerbation with an acute respiratory acidosis. It was recommended to admit this patient at 1655. I discussed the case with the hospitalist service via telephone/TigerText and they are agreeable to admit the patient to their services. Based on the above, including the patient's age, coexisting illnesses, labs, imaging, and exam findings the decision to treat as an inpatient. I discussed the patient with the hospitalist team who recommended admission to their services. They received the medications, treatments, interventions indicated above and their condition remained guarded. I discussed my findings with the patient and their family and they understand and agree with the treatment plan. All patient / family questions were answered to their satisfaction. Consults/Care Managements Discussions: Per MDM ER treatment provided: See above Procedures:none Critical Care: None The chart was completed utilizing [employer] voice recognition software. Grammatical errors, random word insertions, pronoun errors, and incomplete sentences are an occasional consequence of this system due to software limitations, ambient noise, and hardware issues. Any formal questions or concerns about the content, text, or information contained within the body of this dictation should be directly addressed to the physician for clarification. Past Med/Surg History Problem List (Updated 06/22/25 @ 21:33 by Piotr Aleman DO) Chronic anemia (Acute) Acute respiratory acidosis (Acute) Acute on chronic respiratory failure with hypoxia and hypercapnia (Acute) Acute exacerbation of chronic obstructive pulmonary disease (Acute) Sleep apnea Hypotension Acute on chronic respiratory failure with hypoxia (Acute) COPD exacerbation (Acute) Left lower lobe pneumonia (Acute) Palpitations CEE (dyspnea on exertion) Constipation Dysphagia History of transcarotid artery revascularization (TCAR) S/P vascular surgery Stenosis of right carotid artery Anemia (Chronic) CAD, multiple vessel Chronic migraine GERD (gastroesophageal reflux disease) History of colon polyps On home oxygen therapy 2L N/C prn Failed back syndrome of lumbar spine Bilateral lumbar radiculopathy Anxiety (Acute) Type 2 diabetes mellitus with unspecified complications (Acute 06/22/11) pt denies Bilateral carotid artery disease Antiplatelet or antithrombotic long-term use Emphysema of lung Follows with Dr. Gay Dyslipidemia Benign essential hypertension Medical History Difficult intravenous access Adverse effect of anesthesia "I am slow to wake up and my bladder is slow to start working again" as per patient CEE (dyspnea on exertion) [facility] Pulmonary Palpitations "Heart monitor came back good" 01/17/25-01/31/[place] [facility] [place] Type 2 diabetes mellitus as per patient - last A1C was 5.1 - "I am not diabetic, I just spoke with my pcp 03/04/25 and said it was perfect." Hx of sepsis 08/2023 - [facility] IP "for a week" with Covid and Pneumonia History of pneumonia 08/2023 - [facility] IP "for a week" with Covid and Sepsis Hx of chest pain pt denies any issues at this time Dyslipidemia Bilateral lumbar radiculopathy Asthma [facility] [place] [place] Gay HTN (hypertension) COPD (chronic obstructive pulmonary disease) Dr Gay - most recent exacerbation 06/12/24 Anxiety Antiplatelet or antithrombotic long-term use clopidogrel/plavix History of blood transfusion "with all my surgies I have needed a transfusion" Esophageal dysphagia History of home oxygen therapy 2L O2 HS/PRN History of COVID-19 08/2023 - [facility] IP "for a week" with Pneumonia and Sepsis > resolved at this time Bilateral carotid artery disease follows with Dr. Joya > 70% R/L ICA stenosis per 04/2022 carotid doppler, unchanged compared to 06/2021 per report. Repeat imaging in one year recommended per [facility] [place] IBS (irritable bowel syndrome) Kidney stones multiple & currently in Left Kidney Low back problem PTSD (post-traumatic stress disorder) Follows with psych + counselor Some short-term and long-term memory issues (undetermined if r/t PTSD per patient) Seasonal allergies Sciatica Colon polyp Hx Depression Lymphedema pt denies at this time Restless legs syndrome GERD (gastroesophageal reflux disease) Migraine with aura and without status migrainosus, not intractable "a few a month" Radicular pain of lumbosacral region Transient ischemic attack (TIA) "mini strokes" Several years ago, Follows with [facility] [place] (Dr. Ordaz) Heart attack hx - 2009 > stent and 2011 > stent Coronary artery disease 2009 > stent CABG x4 (2010) 2010 > stent Cauda equina syndrome Per remote records, pt unaware Surgical History History of tooth extraction upper dentures Status post coronary artery stent placement x2 stents - [facility] [place] [place] Joya History of transcarotid artery revascularization (TCAR) (06/26/24) Dr Penaloza History of cardiac cath 2009 > stent 2010 > stent S/P epidural steroid injection caudal epidural steroid injection H/O unilateral salpingectomy History of colonoscopy History of back surgery x6 Lumbar History of right knee surgery History of lithotripsy History of ectopic r/t tubal History of shoulder surgery Right History of hysterectomy History of section x1 History of total knee replacement Right History of cholecystectomy H/O heart bypass surgery CABG X4 (08/2010) Family History Daughter Atrial septal defect Son Atrial septal defect Sister Crohn's disease Family history of CA (myocardial infarction) Cancer Mother Cervical cancer Father Diabetes Coronary heart disease Cancer Brother Nephroblastoma Cancer Grandmother (Maternal) Diabetes Grandmother (Paternal) Diabetes Other No family history of adverse response to anesthesia No significant family history Social History Smoking Status: Former smoker Tobacco Type: Cigarettes Age Started Using Tobacco: 12; Age Quit Using Tobacco: 62; packs per day: 1.5; Second Hand Exposure: No; Do You Dip or Chew Tobacco: No; Hx Alcohol Use: No Hx Substance Use: No Preferred Language: Somali Communication Ability: Effective Visual Impairment: Limited Hearing Ability: Normal Sea Foam Kiss Maker Required: No Beliefs That Will Affect Care: None marital status: Current Living Situation: Alone Current Living Situation Comment: Lives at home alone current occupational status: disabled Feels Safe at Home: Yes Safety Concerns: Feels Safe At This Time Childhood Exposure to Second-Hand Smoke: Yes Assistive Devices: CPAP, Denture - Upper, Glasses, Oxygen - Continuous and Walker Allergies Allergies Allergy/AdvReac Type Severity Reaction Status Date / Time Iodinated Contrast Media Allergy Intermediate Rash Verified 06/12/25 11:43 nitrofurantoin Allergy Intermediate Hives Verified 06/12/25 11:43 senna Allergy Intermediate Hives Verified 06/12/25 11:43 (From X-Prep), Takes senokot at home Beta-Blockers AdvReac Intermediate Hypotension Verified 06/12/25 11:43 (Beta-Adrenergic Bloc rizatriptan AdvReac Intermediate Nausea and Verified 06/12/25 11:43 Vomiting sumatriptan AdvReac Intermediate Worsened Verified 06/12/25 11:43 Migraine zolpidem AdvReac Intermediate Nightmares Verified 06/12/25 11:43 Home Meds Home Medications Medication Instructions Recorded Confirmed aspirin 81 mg tablet,delayed 81 mg PO HS 07/27/18 06/21/25 release (Rula Low Dose Aspirin) coenzyme Q10 100 mg capsule (Co 200 mg PO HS 07/27/18 06/21/25 Q-10) cyanocobalamin (vitamin B-12) 1,000 mcg PO QAM 07/27/18 06/21/25 1,000 mcg tablet (Vitamin B-12) melatonin 10 mg tablet 10 mg PO HS 07/27/18 06/21/25 multivitamin (One Daily 1 tab PO QAM 07/27/18 06/21/25 Multivitamin tablet) omega [id number] oil 1,000 mg 1 cap PO BID 07/27/18 06/21/25 (120 mg-180 mg) capsule (Fish Oil) atorvastatin 80 mg tablet (Lipitor) 80 mg PO QPM 10/04/19 06/21/25 cholecalciferol (vitamin D3) 25 2,000 unit PO QAM 04/17/20 06/21/25 mcg (1,000 unit) capsule (Vitamin D3) magnesium oxide 600 mg PO HS 10/30/20 06/21/25 tramadol 50 mg tablet 50 mg PO DAILY PRN Pain 10/01/21 06/21/25 buspirone 10 mg tablet 10 mg PO BID 11/04/22 06/21/25 bupropion HCl 150 mg 24 hr tablet, 150 mg PO QAM 08/18/23 06/21/25 extended release (Wellbutrin XL) ibandronate 150 mg tablet 150 mg PO MONTHLY 08/18/23 06/21/25 lamotrigine 100 mg tablet 150 mg PO QAM 08/18/23 06/21/25 (Lamictal) lamotrigine 200 mg tablet 200 mg PO HS 08/18/23 06/21/25 (Lamictal) gabapentin 300 mg capsule 300 mg PO BID 05/01/24 06/21/25 (Neurontin) clopidogrel 75 mg tablet (Plavix) 75 mg PO QAM 06/15/24 06/21/25 verapamil 240 mg 24 hr 240 mg PO QAM 03/05/25 06/21/25 capsule,extended release acetaminophen 650 mg 1,300 mg PO Q8H 03/13/25 06/21/25 tablet,extended release albuterol sulfate 90 mcg/actuation 2 puff inhalation Q4H PRN 03/13/25 06/21/25 aerosol inhaler (Ventolin HFA) Shortness Of Breath ascorbic acid (vitamin C) 500 mg 500 mg PO QAM 03/13/25 06/21/25 tablet (Vitamin C) diclofenac sodium 1 % topical gel 2 g topical QID 03/13/25 06/21/25 duloxetine 30 mg capsule,delayed 30 mg PO QAM 03/13/25 06/21/25 release lidocaine 5 % topical ointment 1 applic topical BID PRN Pain 03/13/25 06/21/25 rimegepant 75 mg disintegrating 75 mg PO DAILY PRN Migraines 03/13/25 06/21/25 tablet (Nurtec ODT) sodium chloride 3.5 % for 4 ml inhalation DIRECTED PRN 03/13/25 06/21/25 nebulization (Hyper-Perez) Shortness Of Breath/Mucus Production nitroglycerin 0.4 mg sublingual 0.4 mg sublingual Q5M PRN Chest 06/12/25 06/21/25 tablet Pain pantoprazole 40 mg tablet,delayed 40 mg PO .QD 06/12/25 06/21/25 release (Protonix) polyethylene glycol 3350 17 17 g PO DAILY PRN Constipation 06/12/25 06/21/25 gram/dose oral powder (Miralax) Previous Rx's Medication Instructions Recorded quetiapine 200 mg tablet (Seroquel) 200 mg PO HS #30 tabs 08/24/23 sucralfate 1 gram tablet (Carafate) 1 g PO ACHS PRN Abdominal Pain 04/18/25 #360 tabs ranolazine 500 mg tablet,extended 500 mg PO BID #180 tabs 04/23/25 release,12 hr Auto Titrating CPAP #1 ea 06/03/25 Oxygen Home #1 ea 06/03/25 Results & Data (ED) Vital Signs Vital Signs - 24 hr 06/21/25 15:14 06/21/25 15:17 06/21/25 15:18 Temperature 36.5 C Temperature Source Oral Pulse Rate 20 L 74 72 Pulse Rate from SpO2 Sensor 72 Respiratory Rate 20 17 Respiratory Effort / Characteristics Non-Labored Spontaneous Respiratory Depth Normal Respiratory Pattern Regular Blood Pressure 107/69 141/84 H Blood Pressure Mean 81 103 Pulse Oximetry 98 98 Oxygen Delivery Method Nasal Cannula Nasal Cannula Oxygen Flow Rate 2 2 Sepsis Recent Fever Within 48 Hours No Sepsis New/Unexplained Change in Mental Status No Sepsis Action Taken by Nursing No Action Required 06/21/25 15:29 06/21/25 15:29 06/21/25 15:29 Temperature Temperature Source Pulse Rate 71 Pulse Rate from SpO2 Sensor Respiratory Rate Respiratory Effort / Characteristics Non-Labored Respiratory Depth Normal Respiratory Pattern Regular Blood Pressure Blood Pressure Mean Pulse Oximetry 98 98 Oxygen Delivery Method Nasal Cannula Nasal Cannula Nasal Cannula Oxygen Flow Rate 2 2 2 Sepsis Recent Fever Within 48 Hours Sepsis New/Unexplained Change in Mental Status Sepsis Action Taken by Nursing 06/21/25 15:30 06/21/25 16:30 06/21/25 17:00 Temperature Temperature Source Pulse Rate 70 70 71 Pulse Rate from SpO2 Sensor 70 71 70 Respiratory Rate 18 22 24 Respiratory Effort / Characteristics Respiratory Depth Respiratory Pattern Blood Pressure 143/84 H 125/44 L 94/52 L Blood Pressure Mean 103 71 66 Pulse Oximetry 98 96 93 Oxygen Delivery Method Nasal Cannula Nasal Cannula Nasal Cannula Oxygen Flow Rate 2 2 2 Sepsis Recent Fever Within 48 Hours Sepsis New/Unexplained Change in Mental Status Sepsis Action Taken by Nursing 06/21/25 17:30 06/21/25 17:31 06/21/25 17:31 Temperature Temperature Source Pulse Rate 71 Pulse Rate from SpO2 Sensor 72 Respiratory Rate 22 Respiratory Effort / Characteristics Respiratory Depth Respiratory Pattern Blood Pressure 132/70 132/70 132/70 Blood Pressure Mean 90 91 91 Pulse Oximetry 98 Oxygen Delivery Method Nasal Cannula Oxygen Flow Rate 2 Sepsis Recent Fever Within 48 Hours Sepsis New/Unexplained Change in Mental Status Sepsis Action Taken by Nursing 06/21/25 17:31 06/21/25 17:31 06/21/25 17:31 Temperature Temperature Source Pulse Rate Pulse Rate from SpO2 Sensor Respiratory Rate Respiratory Effort / Characteristics Respiratory Depth Respiratory Pattern Blood Pressure 132/70 132/70 132/70 Blood Pressure Mean 91 91 91 Pulse Oximetry Oxygen Delivery Method Oxygen Flow Rate Sepsis Recent Fever Within 48 Hours Sepsis New/Unexplained Change in Mental Status Sepsis Action Taken by Nursing Laboratory Data 06/22/25 05:38 06/22/25 05:38 Lab Results 06/21/25 06/21/25 Range/Units 15:24 15:25 WBC 5.13 (4.8-10.8) K/ul RBC 3.57 L (4.20-5.40) M/uL Hgb 10.6 L (12.0-16.0) g/dL Hct 33.9 L (37.0-47.0) % MCV 95.0 (80.0-100.0) fL MCH 29.7 (25.0-34.0) pg MCHC 31.3 L (32.0-36.0) g/dL RDW Std Deviation 48.1 H (36.4-46.3) fL RDW Coeff of Elicia 13.9 (11.5-14.5) % Plt Count 236 (130-400) K/uL MPV 9.2 L (9.4-12.4) fL Immature Gran % (Auto) 0.4 % Neut % (Auto) 68.0 % Lymph % (Auto) 18.7 % [place] % (Auto) 8.0 % Eos % (Auto) 4.5 % Baso % (Auto) 0.4 % Neut # (Auto) 3.49 (1.40-6.50) K/uL Lymph # (Auto) 0.96 L (1.20-3.40) K/uL [place] # (Auto) 0.41 (0.11-0.59) K/uL Eos # (Auto) 0.23 (0.00-0.50) K/uL Baso # (Auto) 0.02 (0.00-0.20) K/uL Immature Gran # (Auto) 0.02 (0.01-0.20) K/uL VBG pH 7.32 L (7.36-7.41) VBG pCO2 65 H (38-50) mmHg VBG pO2 29 mmHg VBG HCO3 34 mmol/L VBG O2 Saturation < 60.0 % VBG Base Excess 5.3 mEq/L Sodium 140 (136-145) mmol/L Potassium 4.0 (3.5-5.1) mmol/L Chloride 103 (98-107) mmol/L Carbon Dioxide 31 (21-32) mmol/L Anion Gap 6 (3-11) BUN 15 (6-23) mg/dl Creatinine 1.08 (0.6-1.2) mg/dl Est Cr Clr Drug Dosing 54.0 ml/min eGFR 57.00 BUN/Creatinine Ratio 13.9 (10-20) Glucose 108 H (70-99(Fasting)) mg/dl Calcium 9.6 (8.6-10.3) mg/dl Magnesium 2.2 (1.7-2.4) mg/dl Total Bilirubin 0.6 (0.2-1.0) mg/dl AST 22 (13-39) U/L ALT 14 (7-52) U/L Alkaline Phosphatase 59 (34-104) U/L Total Protein 7.2 (6.0-8.3) gm/dl Albumin 4.4 (3.4-5.0) gm/dl Globulin 2.8 (2.5-4.0) gm/dl Albumin/Globulin Ratio 1.6 (0.9-2) Procalcitonin < 0.02 (0-0.5) ng/ml Adenovirus (PCR) Not Detected (NotDetected) B. pertussis DNA (PCR) Not Detected (NotDetected) B.parapertussis DNA PCR Not Detected (NotDetected) C. pneumoniae DNA (PCR) Not Detected (NotDetected) Coronavirus OC43 (PCR) Not Detected (NotDetected) Coronavirus HKU1 (PCR) Not Detected (NotDetected) Coronavirus 229E (PCR) Not Detected (NotDetected) SARS-CoV-2 (PCR) Not Detected (NotDetected) Coronavirus NL63 (PCR) Not Detected (NotDetected) Human Metapneumovir PCR Not Detected (NotDetected) Influenza Type A (PCR) Not Detected (NotDetected) Influenza Type B (PCR) Not Detected (NotDetected) M. pneumoniae (PCR) Not Detected (NotDetected) Parainfluenza 1 (PCR) Not Detected (NotDetected) Parainfluenza 2 (PCR) Not Detected (NotDetected) Parainfluenza 3 (PCR) Not Detected (NotDetected) Parainfluenza 4 (PCR) Not Detected (NotDetected) RSV (PCR) Not Detected (NotDetected) Entero/Rhino (PCR) Not Detected (NotDetected) Administered Medications Acetaminophen (Acetaminophen 500 Mg Tab) 1,000 mg PO Q8H [facility] Stop: 07/21/25 18:29 Last Admin: 06/22/25 18:40 Dose: 1,000 mg Documented By: Admin: 06/22/25 09:39 Dose: 1,000 mg Documented By: Admin: 06/22/25 03:45 Dose: Not Given Documented By: Admin: 06/21/25 18:59 Dose: 1,000 mg Documented By: SIOBHANE Ascorbic Acid (Ascorbic Acid 500 Mg Tab) [facility] [place]: 07/22/25 08:59 Last Admin: 06/22/25 08:29 Dose: 500 mg Documented By: OS Aspirin (Aspirin 81 Mg Ectab) 81 mg PO HS [facility] Stop: 07/21/25 20:59 Last Admin: 06/22/25 20:41 Dose: 81 mg Documented By: Admin: 06/21/25 21:24 Dose: 81 mg Documented By: KDL Atorvastatin Calcium (Atorvastatin 40 Mg Tab) 80 mg PO QPM [facility] Stop: 07/21/25 20:59 Last Admin: 06/22/25 20:41 Dose: 80 mg Documented By: Admin: 06/21/25 21:26 Dose: 80 mg Documented By: KDL Bupropion HCl (Bupropion Xl 150 Mg Tabcr) [facility] [place] Stop: 07/22/25 08:59 Last Admin: 06/22/25 08:32 Dose: 150 mg Documented By: OS Buspirone HCl (Buspirone 5 Mg Tab) 10 mg PO BID [facility] Stop: 07/21/25 20:59 Last Admin: 06/22/25 20:40 Dose: 10 mg Documented By: Admin: 06/22/25 08:32 Dose: 10 mg Documented By: Admin: 06/21/25 21:23 Dose: 10 mg Documented By: KDL Clopidogrel Bisulfate (Clopidogrel Bisulfate 75 Mg Tab) [facility] [place] Stop: 07/22/25 08:59 Last Admin: 06/22/25 08:32 Dose: 75 mg Documented By: OS Cyanocobalamin (Cyanocobalamin (B-12) 500 Mcg Tablet) 1,000 mcg [facility] [place] Stop: 07/22/25 08:59 Last Admin: 06/22/25 08:31 Dose: 1,000 mcg Documented By: OS Diclofenac Sodium (Diclofenac Sod 1% Gel 100 Gm Tube) 2 gm EXT QID [facility]; Protocol Stop: 07/21/25 20:59 Last Admin: 06/22/25 20:44 Dose: 2 gm Documented By: Admin: 06/22/25 17:48 Dose: Not Given Documented By: Admin: 06/22/25 13:02 Dose: Not Given Documented By: Admin: 06/22/25 08:33 Dose: Not Given Documented By: Admin: 06/21/25 21:27 Dose: 2 gm Documented By: KDL Doxycycline Hyclate (Doxycycline Hyclate 100 Mg Cap) 100 mg PO BID [facility] Stop: 06/27/25 08:59 Last Admin: 06/22/25 20:39 Dose: 100 mg Documented By: Admin: 06/22/25 09:27 Dose: 100 mg Documented By: OS Duloxetine HCl (Duloxetine Hcl 30 Mg Cap) 30 mg PO QAM [facility] Stop: 07/22/25 08:59 Last Admin: 06/22/25 08:29 Dose: 30 mg Documented By: OS Fish Oil ([place]-3 (Purified Fish Oil) 1 Gm Cap) 1 cap PO BID [facility] Stop: 07/21/25 20:59 Last Admin: 06/22/25 20:42 Dose: 1 cap Documented By: KDVeto Admin: 06/22/25 08:31 Dose: 1 cap Documented By: Admin: 06/21/25 21:24 Dose: 1 cap Documented By: KDVeto Gabapentin (Gabapentin 300 Mg Cap) 300 mg PO BID [facility] Stop: 07/21/25 20:59 Last Admin: 06/22/25 20:42 Dose: 300 mg Documented By: Admin: 06/22/25 08:31 Dose: 300 mg Documented By: Admin: 06/21/25 21:25 Dose: 300 mg Documented By: KDVeto Cefepime HCl (Maxipime 2000mg) 2,000 mg in 20 mls @ 5 mls/min IV Q12H [facility]; Protocol Stop: 06/27/25 09:29 Last Admin: 06/22/25 20:39 Dose: 5 mls/min Documented By: KDVeto Admin: 06/22/25 09:40 Dose: 5 mls/min Documented By: OS Methylprednisolone 40 mg/ (Syringe) 0.64 mls @ 1.5 mls/min IV DAILY [facility] Stop: 07/22/25 08:59 Last Admin: 06/22/25 09:39 Dose: 1.5 mls/min Documented By: OS Lactobacillus Acidophilus (Advanced Probiotic 625 Mg Capsule) 1,250 mg PO DAILY [facility] Stop: 07/22/25 09:14 Last Admin: 06/22/25 09:27 Dose: 1,250 mg Documented By: OS Lamotrigine (Lamotrigine 100 Mg Tab) 200 mg PO [facility]; Protocol Stop: 07/21/25 20:59 Last Admin: 06/22/25 20:40 Dose: 200 mg Documented By: Admin: 06/21/25 21:25 Dose: 200 mg Documented By: KDL Lamotrigine (Lamotrigine 100 Mg Tab) 150 [facility] [place]; Protocol Stop: 07/22/25 08:59 Last Admin: 06/22/25 08:30 Dose: 150 mg Documented By: OS Magnesium Oxide (Magnesium Oxide 400 Mg Tab) 600 mg PO [facility] Stop: 07/21/25 20:59 Last Admin: 06/22/25 20:43 Dose: 600 mg Documented By: Admin: 06/21/25 21:25 Dose: 600 mg Documented By: KDL Melatonin (Melatonin 3 Mg Tab) 9 mg PO [facility] Stop: 07/21/25 20:59 Last Admin: 06/22/25 20:49 Dose: 9 mg Documented By: Admin: 06/21/25 21:24 Dose: 9 mg Documented By: KDL Miscellaneous (Rimegepant [Nurtec Odt] 75 Mg Tablet,Disintegrating--Order Awaiting Action) 1 each N/A QS [facility] Stop: 07/22/25 00:00 Last Admin: 06/22/25 16:01 Dose: 1 each Documented By: Admin: 06/22/25 08:37 Dose: Not Given Documented By: Admin: 06/21/25 23:09 Dose: Not Given Documented By: KDL Multivitamins (Multivitamin Tab) [facility] [place] Stop: 07/22/25 08:59 Last Admin: 06/22/25 08:29 Dose: 1 tab Documented By: OS Pantoprazole Sodium (Pantoprazole 40 Mg Tab) 40 mg PO DAILY [facility] Stop: 07/22/25 08:59 Last Admin: 06/22/25 08:30 Dose: 40 mg Documented By: OS Polyethylene Glycol (Polyethylene (Miralax) 17 Gm Pack) 17 gm PO DAILY PRN PRN Reason: Constipation Stop: 07/21/25 17:55 Last Admin: 06/22/25 09:28 Dose: 17 gm Documented By: OS Quetiapine Fumarate (Quetiapine Fumarate 200 Mg Tab) 200 mg PO HS [facility] Stop: 07/21/25 20:59 Last Admin: 06/22/25 20:39 Dose: 200 mg Documented By: Admin: 06/21/25 21:27 Dose: 200 mg Documented By: KDL Ranolazine (Ranolazine 500 Mg Er Tab) 500 mg PO BID [facility] Stop: 07/21/25 20:59 Last Admin: 06/22/25 20:43 Dose: 500 mg Documented By: Admin: 06/22/25 08:32 Dose: 500 mg Documented By: Admin: 06/21/25 21:22 Dose: 500 mg Documented By: KDL Tramadol HCl (Tramadol Hcl 50 Mg Tablet) 50 mg PO DAILY PRN PRN Reason: Pain Stop: 07/21/25 17:55 Last Admin: 06/22/25 09:26 Dose: 50 mg Documented By: OS Verapamil HCl (Verapamil Hcl 240 Mg Tabcr) [facility] [place] Stop: 07/22/25 08:59 Last Admin: 06/22/25 08:32 Dose: 240 mg Documented By: OS Vitamin D (Cholecalciferol 25 Mcg (1000 Units) Tab) 25 mcg PO QAM [facility] Stop: 07/22/25 08:59 Last Admin: 06/22/25 08:32 Dose: 25 mcg Documented By: OS Discontinued Medications Albuterol (Albut/Ipratrop 3mg/0.5mg Neb 3 Ml Vial) 3 ml INH NOW STA Stop: 06/21/25 15:14 Last Admin: 06/21/25 15:29 Dose: 3 ml Documented By: KIM Albuterol (Albut/Ipratrop 3mg/0.5mg Neb 3 Ml Vial) 3 ml NEB NOW STA; Protocol Stop: 06/21/25 16:24 Last Admin: 06/21/25 16:41 Dose: 3 ml Documented By: MUKUL Doxycycline Hyclate (Doxycycline Hyclate 100 Mg Cap) 100 mg PO NOW STA Stop: 06/21/25 16:24 Last Admin: 06/21/25 16:41 Dose: 100 mg Documented By: MUKUL Ceftriaxone Sodium (Rocephin) 1,000 mg in 50 mls @ 100 mls/hr IV NOW STA Stop: 06/21/25 16:52 Last Infusion: 06/21/25 17:20 Dose: Infused Documented By: Admin: 06/21/25 16:41 Dose: 100 mls/hr Documented By: MUKUL Methylprednisolone (Methylprednisolone 125 Mg/2 Ml Vial) 125 mg IV NOW STA Stop: 06/21/25 15:14 Last Admin: 06/21/25 15:29 Dose: 125 mg Documented By: KIM Tramadol HCl (Tramadol Hcl 50 Mg Tablet) 50 mg PO NOW STA Stop: 06/22/25 19:58 Last Admin: 06/22/25 20:38 Dose: 50 mg Documented By: RICH Imaging Data Radiologist's Impression: Chest X-Ray 06/21/25 15:13 Clinical History: Dyspnea Technique: PA and lateral views of the chest were obtained Comparison is made to the prior examination dated 03/17/2025 Findings: There are no confluent pulmonary infiltrates. The heart size is within normal limits. No pleural effusion or pneumothorax is seen. There is no definite pulmonary nodule. Sternal wires are present. There are vertebroplasty changes in the lower thoracic spine Impression: No active disease Electronically signed by Shahram Mary 06-21-2025 5:20 PM Discharge Plan Visit Data Chief Complaint: Shortness of Breath/Dyspnea Stated Complaint: SOB ED Provider: Piotr Aleman Discharge Problem: Acute exacerbation of chronic obstructive pulmonary disease, Acute on chronic respiratory failure with hypoxia and hypercapnia, Acute respiratory acidosis, Chronic anemia Patient Disposition: Admitted As Inpatient Condition: Serious Discharge Instructions Interventions: ED Discharge Assessment Last Done: 06/21/25 20:53
--- NOTE | 2025-06-21 17:20 | XRay Report ---
Clinical History: Dyspnea Technique: PA and lateral views of the chest were obtained Comparison is made to the prior examination dated 03/17/2025 Findings: There are no confluent pulmonary infiltrates. The heart size is within normal limits. No pleural effusion or pneumothorax is seen. There is no definite pulmonary nodule. Sternal wires are present. There are vertebroplasty changes in the lower thoracic spine Impression: No active disease Electronically signed by Shahram Mary 06-21-2025 5:20 PM
[2025-06-21] MEDS ORDERED: ALBUTEROL HFA 8 GM INHALER INH PRN (17:50)
[2025-06-21] MEDS ORDERED: NITROGLYCERIN SL 0.4 MG/TAB TAB SL PRN (17:50)
[2025-06-21] MEDS ORDERED: SUCRALFATE 1 GM TAB PO PRN (17:56)
[2025-06-21] MEDS ORDERED: NON-FORMULARY MEDICATION (Auto Titrating Cpap misc) SCH (18:00)
--- NOTE | 2025-06-21 18:04 | History & Physical Report ---
Date of Service June 21, 2025 Assessment & Plan (1) COPD exacerbation: (2) Sleep apnea: Plan COPD exacerbation and acute hypercapnic respiratory failure: Patient will be placed on rocephin, will likely transition to cefepime in AM as patient had recent antibiotic use in past 3 months. Corthcosteroids. Will monitor. Placed on contiuos cpap. chronic respiratory failure with hypoxia: Supplemental oxygen per nasal cannula to maintain saturation greater than 90%. CAD, multiple vessel: Currently stable. Continue current medical management Dyslipidemia: Stable. Continue statin therapy Benign essential hypertension: Stable. Continue verapamil History of Present Illness Chief Complaint: Productive cough Primary Care Provider: Kailee Lam 65-year-old female with COPD and chronic respiratory failure on 2 L of oxygen per nasal cannula at home. Fpr the past couple of days patient has reported feeling weaker, difficulty gettin out of bed. She has weakness and SOB. Patient with a productive cough and green sputum. She denies hemoptysis. She has no pleuritic pain. She was seen in the ED x ray was negative for pneumonia. HOwever patient was found to have CO2 retention on VBG. Allergies Allergy/AdvReac Type Severity Reaction Status Date / Time Iodinated Contrast Media Allergy Intermediate Rash Verified 06/12/25 11:43 nitrofurantoin Allergy Intermediate Hives Verified 06/12/25 11:43 senna Allergy Intermediate Hives Verified 06/12/25 11:43 (From X-Prep), Takes senokot at home Beta-Blockers AdvReac Intermediate Hypotension Verified 06/12/25 11:43 (Beta-Adrenergic Bloc rizatriptan AdvReac Intermediate Nausea and Verified 06/12/25 11:43 Vomiting sumatriptan AdvReac Intermediate Worsened Verified 06/12/25 11:43 Migraine zolpidem AdvReac Intermediate Nightmares Verified 06/12/25 11:43 Home Medications Medication Instructions Recorded Confirmed Type aspirin 81 mg tablet,delayed 81 mg PO HS 07/27/18 06/21/25 History release (Rula Low Dose Aspirin) coenzyme Q10 100 mg capsule (Co 200 mg PO HS 07/27/18 06/21/25 History Q-10) cyanocobalamin (vitamin B-12) 1,000 mcg PO QAM 07/27/18 06/21/25 History 1,000 mcg tablet (Vitamin B-12) melatonin 10 mg tablet 10 mg PO HS 07/27/18 06/21/25 History multivitamin (One Daily 1 tab PO QAM 07/27/18 06/21/25 History Multivitamin tablet) omega 6-kus-pfu-fish oil 1,000 mg 1 cap PO BID 07/27/18 06/21/25 History (120 mg-180 mg) capsule (Fish Oil) atorvastatin 80 mg tablet (Lipitor) 80 mg PO QPM 10/04/19 06/21/25 History cholecalciferol (vitamin D3) 25 2,000 unit PO QAM 04/17/20 06/21/25 History mcg (1,000 unit) capsule (Vitamin D3) magnesium oxide 600 mg PO HS 10/30/20 06/21/25 History tramadol 50 mg tablet 50 mg PO DAILY PRN Pain 10/01/21 06/21/25 History buspirone 10 mg tablet 10 mg PO BID 11/04/22 06/21/25 History bupropion HCl 150 mg 24 hr tablet, 150 mg PO QAM 08/18/23 06/21/25 History extended release (Wellbutrin XL) ibandronate 150 mg tablet 150 mg PO MONTHLY 08/18/23 06/21/25 History lamotrigine 100 mg tablet 150 mg PO QAM 08/18/23 06/21/25 History (Lamictal) lamotrigine 200 mg tablet 200 mg PO HS 08/18/23 06/21/25 History (Lamictal) quetiapine 200 mg tablet (Seroquel) 200 mg PO HS #30 tabs 08/24/23 06/21/25 Rx gabapentin 300 mg capsule 300 mg PO BID 05/01/24 06/21/25 History (Neurontin) clopidogrel 75 mg tablet (Plavix) 75 mg PO QAM 06/15/24 06/21/25 History verapamil 240 mg 24 hr 240 mg PO QAM 03/05/25 06/21/25 History capsule,extended release acetaminophen 650 mg 1,300 mg PO Q8H 03/13/25 06/21/25 History tablet,extended release albuterol sulfate 90 mcg/actuation 2 puff inhalation Q4H PRN 03/13/25 06/21/25 History aerosol inhaler (Ventolin HFA) Shortness Of Breath ascorbic acid (vitamin C) 500 mg 500 mg PO QAM 03/13/25 06/21/25 History tablet (Vitamin C) diclofenac sodium 1 % topical gel 2 g topical QID 03/13/25 06/21/25 History duloxetine 30 mg capsule,delayed 30 mg PO QAM 03/13/25 06/21/25 History release lidocaine 5 % topical ointment 1 applic topical BID PRN Pain 03/13/25 06/21/25 History rimegepant 75 mg disintegrating 75 mg PO DAILY PRN Migraines 03/13/25 06/21/25 History tablet (Nurtec ODT) sodium chloride 3.5 % for 4 ml inhalation DIRECTED PRN 03/13/25 06/21/25 History nebulization (Hyper-Perez) Shortness Of Breath/Mucus Production sucralfate 1 gram tablet (Carafate) 1 g PO ACHS PRN Abdominal Pain 04/18/25 06/21/25 Rx #360 tabs ranolazine 500 mg tablet,extended 500 mg PO BID #180 tabs 04/23/25 06/21/25 Rx release,12 hr Auto Titrating CPAP #1 ea 06/03/25 06/21/25 Rx Oxygen Home #1 ea 06/03/25 06/21/25 Rx nitroglycerin 0.4 mg sublingual 0.4 mg sublingual Q5M PRN Chest 06/12/25 06/21/25 History tablet Pain pantoprazole 40 mg tablet,delayed 40 mg PO .QD 06/12/25 06/21/25 History release (Protonix) polyethylene glycol 3350 17 17 g PO DAILY PRN Constipation 06/12/25 06/21/25 History gram/dose oral powder (Miralax) Past Med/Surg History Problem List Sleep apnea Hypotension Acute on chronic respiratory failure with hypoxia (Acute) COPD exacerbation (Acute) Left lower lobe pneumonia (Acute) Palpitations CEE (dyspnea on exertion) Constipation Dysphagia History of transcarotid artery revascularization (TCAR) S/P vascular surgery Stenosis of right carotid artery Anemia (Chronic) CAD, multiple vessel Chronic migraine GERD (gastroesophageal reflux disease) History of colon polyps On home oxygen therapy 2L N/C prn Failed back syndrome of lumbar spine Bilateral lumbar radiculopathy Anxiety (Acute) Type 2 diabetes mellitus with unspecified complications (Acute 06/22/11) pt denies Bilateral carotid artery disease Antiplatelet or antithrombotic long-term use Emphysema of lung Follows with Dr. Gay Dyslipidemia Benign essential hypertension Medical History Difficult intravenous access Adverse effect of anesthesia "I am slow to wake up and my bladder is slow to start working again" as per patient CEE (dyspnea on exertion) [facility] Pulmonary Palpitations "Heart monitor came back good" 01/17/25-01/31/25 - [facility] Cardiology Dr Joya Type 2 diabetes mellitus as per patient - last A1C was 5.1 - "I am not diabetic, I just spoke with my pcp 03/04/25 and said it was perfect." Hx of sepsis 08/2023 - [facility] IP "for a week" with Covid and Pneumonia History of pneumonia 08/2023 - [facility] IP "for a week" with Covid and Sepsis Hx of chest pain pt denies any issues at this time Dyslipidemia Bilateral lumbar radiculopathy Asthma [facility] Pulmonary Dr Gay HTN (hypertension) COPD (chronic obstructive pulmonary disease) Dr Gay - most recent exacerbation 06/12/24 Anxiety Antiplatelet or antithrombotic long-term use clopidogrel/plavix History of blood transfusion "with all my surgies I have needed a transfusion" Esophageal dysphagia History of home oxygen therapy 2L O2 HS/PRN History of COVID-19 08/2023 - [facility] IP "for a week" with Pneumonia and Sepsis > resolved at this time Bilateral carotid artery disease follows with Dr. Joya > 70% R/L ICA stenosis per 04/2022 carotid doppler, unchanged compared to 06/2021 per report. Repeat imaging in one year recommended per [facility] cardiology IBS (irritable bowel syndrome) Kidney stones multiple & currently in Left Kidney Low back problem PTSD (post-traumatic stress disorder) Follows with psych + counselor Some short-term and long-term memory issues (undetermined if r/t PTSD per patient) Seasonal allergies Sciatica Colon polyp Hx Depression Lymphedema pt denies at this time Restless legs syndrome GERD (gastroesophageal reflux disease) Migraine with aura and without status migrainosus, not intractable "a few a month" Radicular pain of lumbosacral region Transient ischemic attack (TIA) "mini strokes" Several years ago, Follows with [facility] neuro (Dr. Ordaz) Heart attack hx - 2009 > stent and 2011 > stent Coronary artery disease 2009 > stent CABG x4 (2010) 2010 > stent Cauda equina syndrome Per remote records, pt unaware Surgical History History of tooth extraction upper dentures Status post coronary artery stent placement x2 stents - [facility] Cardiology Dr Joya History of transcarotid artery revascularization (TCAR) (06/26/24) Dr Penaloza History of cardiac cath 2009 > stent 2010 > stent S/P epidural steroid injection caudal epidural steroid injection H/O unilateral salpingectomy History of colonoscopy History of back surgery x6 Lumbar History of right knee surgery History of lithotripsy History of ectopic r/t tubal History of shoulder surgery Right History of hysterectomy History of section x1 History of total knee replacement Right History of cholecystectomy H/O heart bypass surgery CABG X4 (08/2010) Family History Daughter Atrial septal defect Son Atrial septal defect Sister Crohn's disease Family history of [place] (myocardial infarction) Cancer Mother Cervical cancer Father Diabetes Coronary heart disease Cancer Brother Nephroblastoma Cancer Grandmother (Maternal) Diabetes Grandmother (Paternal) Diabetes Other No family history of adverse response to anesthesia No significant family history Social History Smoking Status: Former smoker Tobacco Type: Cigarettes Age Started Using Tobacco: 12; Age Quit Using Tobacco: 62; packs per day: 1.5; Second Hand Exposure: No; Do You Dip or Chew Tobacco: No; Hx Alcohol Use: No Hx Substance Use: No Preferred Language: Yoruba Communication Ability: Effective Visual Impairment: Limited Hearing Ability: Normal Case Investigator Required: No Beliefs That Will Affect Care: None marital status: Current Living Situation: Alone Current Living Situation Comment: Lives at home alone current occupational status: disabled Feels Safe at Home: Yes Safety Concerns: Feels Safe At This Time Childhood Exposure to Second-Hand Smoke: Yes Assistive Devices: CPAP, Denture - Upper, Glasses, Oxygen - Continuous and Walker Review of Systems Constitutional: no fever Eyes: no blind spots Ear, Nose, Mouth, Throat: no ear pain Respiratory: + cough Cardiovascular: no chest pain Gastrointestinal: no abdominal pain Genitourinary: no dysuria Musculoskeletal: no back pain Integumentary: no acne Neurologic: + unsteadiness and + generalized weaknes s Psychiatric: no behavioral changes Endocrine: + fatigue Hematologic / Lymphatic: no easy bleeding Allergy / Immunological: no GI upset with certain foods Physical Exam Constitutional: WD/WN, vitals as above Eyes: PERRL, conjunctivae normal, anicteric sclerae ENMT: external ear and nose normal, oropharynx normal Neck: trachea midline, no thyromegaly Respiratory: normal respiratory effort and + labored breathing Auscultation: + diminished lung sounds Cardiovascular: RRR, no murmur, no edema Gastrointestinal (Abdomen): normal bowel sounds, soft, nontender, no hepatosplenomegaly Musculoskeletal: no cyanosis or clubbing, extremities motor strength 5/5 Skin: no rashes, warm and dry Neurologic: PERRL, EOMI, accommodation nl, no face palsy, no dysarthria Psychiatric: A+Ox3, euthymic affect Lymphatic: no cervical or axillary lymphadenopathy Results & Data Results & Data Vital Signs (Past 12 Hours) Vital Signs Temp Pulse Resp BP Pulse Ox O2 Del Method O2 Flow Rate 06/21/25 17:00 71 24 94/52 L 93 Nasal Cannula 2 06/21/25 16:30 70 22 125/44 L 96 Nasal Cannula 2 06/21/25 15:30 70 18 143/84 H 98 Nasal Cannula 2 06/21/25 15:29 98 Nasal Cannula 2 06/21/25 15:29 Nasal Cannula 2 06/21/25 15:29 71 98 Nasal Cannula 2 06/21/25 15:18 72 17 141/84 H 98 Nasal Cannula 2 06/21/25 15:17 74 06/21/25 15:14 36.5 C 20 L 20 107/69 98 Nasal Cannula 2 PG Care Time/CCT Total # of Minutes Spent Total Time Spent with Patient: Total time spent is greater than 50% in coordination of care (as documented) at patient's floor/unit and/or counseling patient: Coding Level of Care Code 99672 INT INP/OBS CARE 3/75MIN Diagnoses COPD exacerbation J44.1 Sleep apnea G47.30
[2025-06-21] MEDS: ACETAMINOPHEN 500 MG TAB PO SCH (18:59)
[2025-06-21] MEDS ORDERED: SODIUM CHLOR 7% 4 ML NEB INH PRN (20:08)
[2025-06-21] MEDS ORDERED: NON-FORMULARY MEDICATION (Coenzyme Q10 [Co Q-10] 100 mg Capsule) PO SCH (21:00)
[2025-06-21] MEDS: RANOLAZINE 500 MG ER TAB PO SCH (21:22)
[2025-06-21] MEDS: busPIRone 5 MG TAB PO SCH (21:23)
[2025-06-21] MEDS: OMEGA-3 (PURIFIED FISH OIL) 1 GM CAP PO SCH (21:24)
[2025-06-21] MEDS: MELATONIN 3 MG TAB PO SCH (21:24)
[2025-06-21] MEDS: ASPIRIN 81 MG ECTAB PO SCH (21:24)
[2025-06-21] MEDS: GABAPENTIN 300 MG CAP PO SCH (21:25)
[2025-06-21] MEDS: lamoTRIgine 100 MG TAB PO SCH (21:25)
[2025-06-21] MEDS: MAGNESIUM OXIDE 400 MG TAB PO SCH (21:25)
[2025-06-21] MEDS: ATORVASTATIN 40 MG TAB PO SCH (21:26)
[2025-06-21] MEDS: DICLOFENAC SOD 1% GEL 100 GM TUBE EXT SCH (21:27)
[2025-06-22 06:15] LABS: Base Excess VBG 7.5 mEq/L; HCO3 VBG 33 mmol/L; Oxygen Saturation VBG 83.6 %; PCO2 VBG 50 mmHg (38-50); PO2 VBG 51 mmHg; pH VBG 7.43 (7.36-7.41)
[2025-06-22 06:21] LABS: Hematocrit (blood only) 27.6 % (37.0-47.0); Hemoglobin 9.2 g/dL (12.0-16.0); Mean Corpuscular Hemoglobin 31.0 pg (25.0-34.0); Mean Corpuscular Volume 92.9 fL (80.0-100.0); Platelet Count 185 K/uL (130-400); RDW Standard Deviation 46.5 fL (36.4-46.3); Red Blood Count 2.97 M/uL (4.20-5.40); White Blood Count 3.16 K/ul (4.8-10.8)
[2025-06-22 06:40] LABS: Anion Gap 6.0 (3-11); Blood Urea Nitrogen 16.0 mg/dl (6-23); Calcium 9.2 mg/dl (8.6-10.3); Carbon Dioxide 29.0 mmol/L (21-32); Chloride 105.0 mmol/L (98-107); Creatinine Clr Calc Pharmacy 52.5 ml/min; Glucose 164.0 mg/dl (70-99(Fasting)); Potassium 4.0 mmol/L (3.5-5.1); Sodium 140.0 mmol/L (136-145)
[2025-06-22] MEDS: ASCORBIC ACID 500 MG TAB PO SCH (08:29)
[2025-06-22] MEDS: MULTIVITAMIN TAB PO SCH (08:29)
[2025-06-22] MEDS: lamoTRIgine 100 MG TAB PO SCH (08:30)
[2025-06-22] MEDS: CYANOCOBALAMIN (B-12) 500 MCG TABLET PO SCH (08:31)
[2025-06-22] MEDS: CHOLECALCIFEROL 25 MCG (1000 UNITS) TAB PO SCH (08:32)
[2025-06-22] MEDS: VERAPAMIL HCL 240 MG TABCR PO SCH (08:32)
[2025-06-22] MEDS: CLOPIDOGREL BISULFATE 75 MG TAB PO SCH (08:32)
[2025-06-22] MEDS: DOXYCYCLINE HYCLATE 100 MG CAP PO SCH (09:27)
[2025-06-22] MEDS: ADVANCED PROBIOTIC 625 MG CAPSULE PO SCH (09:27)
[2025-06-22] MEDS: POLYETHYLENE (MIRALAX) 17 GM PACK PO PRN (09:28)
[2025-06-22] MEDS: CEFEPIME 2000MG 2,000 MG/20 ML SYR IV SCH (09:40)
--- NOTE | 2025-06-22 09:55 | Hospitalist Progress Note ---
Date of Service June 22, 2025 Assessment & Plan (1) COPD exacerbation: (2) Sleep apnea: Plan COPD exacerbation and acute hypercapnic respiratory failure: Switched to cefepime in AM as patient had recent antibiotic use in past 3 months. continue Corticosteroids. Patient is improving Will monitor. Now on CPAP HS chronic respiratory failure with hypoxia: Supplemental oxygen per nasal cannula to maintain saturation greater than 90%. CAD, multiple vessel: Currently stable. Continue current medical management Dyslipidemia: Stable. Continue statin therapy Benign essential hypertension: Stable. Continue verapamil Admission and Anticipated Discharge Date Admission Date: June 21, 2025 Subjective Patient reports feeling well. Breathing better, less sputum. Physical Exam Constitutional: WD/WN, vitals as above Eyes: PERRL, conjunctivae normal, anicteric sclerae ENMT: external ear and nose normal, oropharynx normal Neck: trachea midline, no thyromegaly Respiratory: normal respiratory effort Auscultation: + diminished lung sounds Cardiovascular: RRR, no murmur, no edema Gastrointestinal (Abdomen): normal bowel sounds, soft, nontender, no hepatosplenomegaly Musculoskeletal: no cyanosis or clubbing, extremities motor strength 5/5 Skin: no rashes, warm and dry Neurologic: PERRL, EOMI, accommodation nl, no face palsy, no dysarthria Psychiatric: A+Ox3, euthymic affect Lymphatic: no cervical or axillary lymphadenopathy Results & Data Results & Data Vital Signs (Past 12 Hours) Vital Signs Temp Pulse Pulse Resp BP Pulse Ox O2 Del Method 06/22/25 08:05 37.0 C 72 16 135/65 93 Nasal Cannula 06/22/25 07:53 67 06/22/25 07:53 Nasal Cannula 06/22/25 02:51 36.6 C 60 18 102/65 92 Nasal Cannula 06/21/25 23:25 95 H 28 H 94 06/21/25 22:30 Nasal Cannula O2 Flow Rate 06/22/25 08:05 2 06/22/25 07:53 06/22/25 07:53 3 06/22/25 02:51 2 06/21/25 23:25 2 06/21/25 22:30 2 PG Care Time/CCT Total # of Minutes Spent Total Time Spent with Patient: Total time spent is greater than 50% in coordination of care (as documented) at patient's floor/unit and/or counseling patient: Coding Level of Care Code 86846 SUB INP/OBS CARE MIN Diagnoses COPD exacerbation J44.1 Sleep apnea G47.30
[2025-06-23 06:07] LABS: Hematocrit (blood only) 26.9 % (37.0-47.0); Hemoglobin 9.0 g/dL (12.0-16.0); Mean Corpuscular Hemoglobin 31.3 pg (25.0-34.0); Mean Corpuscular Volume 93.4 fL (80.0-100.0); Platelet Count 213 K/uL (130-400); RDW Standard Deviation 46.1 fL (36.4-46.3); Red Blood Count 2.88 M/uL (4.20-5.40); White Blood Count 7.26 K/ul (4.8-10.8)
[2025-06-23 06:28] LABS: Anion Gap 7 (3-11); Blood Urea Nitrogen 32 mg/dl (6-23); Calcium 9.0 mg/dl (8.6-10.3); Carbon Dioxide 27 mmol/L (21-32); Chloride 107 mmol/L (98-107); Creatinine Clr Calc Pharmacy 46.3 ml/min; Glucose 108 mg/dl (70-99(Fasting)); Potassium 3.9 mmol/L (3.5-5.1); Sodium 141 mmol/L (136-145)
[2025-06-23] MEDS: ENOXAPARIN INJ 40 MG/0.4 ML SYR SQ SCH (14:20)
[2025-06-23] MEDS: SODIUM CHLORIDE 0.9% 500 ML IV SCH (14:21)
--- NOTE | 2025-06-23 18:52 | Hospitalist Progress Note ---
Date of Service June 23, 2025 Assessment & Plan (1) COPD exacerbation: (2) Sleep apnea: Plan COPD exacerbation and acute hypercapnic respiratory failure: Continue cefepime as patient had recent antibiotic use in past 3 months. continue Corticosteroids. Patient is improving Will monitor. Now on CPAP HS. Hypercapnic respiratory failure has improved. chronic respiratory failure with hypoxia: Supplemental oxygen per nasal cannula to maintain saturation greater than 90%. CAD, multiple vessel: Currently stable. Continue current medical management Dyslipidemia: Stable. Continue statin therapy Benign essential hypertension: Stable. Continue verapamil Admission and Anticipated Discharge Date Admission Date: June 21, 2025 Subjective Patient reports no new symptoms. Patient reports feeling weak when ambulating to the bathroom. Physical Exam Constitutional: WD/WN, vitals as above Eyes: PERRL, conjunctivae normal, anicteric sclerae ENMT: external ear and nose normal, oropharynx normal Neck: trachea midline, no thyromegaly Respiratory: normal respiratory effort Auscultation: + diminished lung sounds Cardiovascular: RRR, no murmur, no edema Gastrointestinal (Abdomen): normal bowel sounds, soft, nontender, no hepatosplenomegaly Musculoskeletal: no cyanosis or clubbing, extremities motor strength 5/5 Skin: no rashes, warm and dry Neurologic: PERRL, EOMI, accommodation nl, no face palsy, no dysarthria Psychiatric: A+Ox3, euthymic affect Lymphatic: no cervical or axillary lymphadenopathy Results & Data Results & Data Vital Signs (Past 12 Hours) Vital Signs Temp Pulse Pulse Pulse Resp BP Pulse Ox 06/23/25 15:31 36.5 C 70 18 118/69 97 06/23/25 14:28 77 18 99 06/23/25 13:55 72 06/23/25 11:29 36.7 C 79 22 147/70 H 98 06/23/25 08:01 06/23/25 07:45 36.5 C 83 17 145/75 H 94 06/23/25 07:30 70 O2 Del Method O2 Flow Rate 06/23/25 15:31 Nasal Cannula 3 06/23/25 14:28 Nasal Cannula 4 06/23/25 13:55 06/23/25 11:29 Nasal Cannula 3 06/23/25 08:01 Nasal Cannula 2 06/23/25 07:45 Room Air 06/23/25 07:30 PG Care Time/CCT Total # of Minutes Spent Total Time Spent with Patient: Total time spent is greater than 50% in coordination of care (as documented) at patient's floor/unit and/or counseling patient: Coding Level of Care Code 20106 SUB INP/OBS CARE 350MIN Diagnoses COPD exacerbation J44.1 Sleep apnea G47.30
[2025-06-24 06:24] LABS: Base Excess VBG 4.1 mEq/L; HCO3 VBG 29 mmol/L; Oxygen Saturation VBG 95.4 %; PCO2 VBG 41 mmHg (38-50); PO2 VBG 68 mmHg; pH VBG 7.45 (7.36-7.41)
[2025-06-24 06:34] LABS: Hematocrit (blood only) 27.4 % (37.0-47.0); Hemoglobin 9.0 g/dL (12.0-16.0); Mean Corpuscular Hemoglobin 30.8 pg (25.0-34.0); Mean Corpuscular Volume 93.8 fL (80.0-100.0); Platelet Count 222 K/uL (130-400); RDW Standard Deviation 46.4 fL (36.4-46.3); Red Blood Count 2.92 M/uL (4.20-5.40); White Blood Count 5.88 K/ul (4.8-10.8)
[2025-06-24 06:54] LABS: Anion Gap 6 (3-11); Blood Urea Nitrogen 28 mg/dl (6-23); Calcium 9.2 mg/dl (8.6-10.3); Carbon Dioxide 28 mmol/L (21-32); Chloride 107 mmol/L (98-107); Creatinine Clr Calc Pharmacy 48.1 ml/min; Glucose 87 mg/dl (70-99(Fasting)); Potassium 3.9 mmol/L (3.5-5.1); Sodium 141 mmol/L (136-145)
[2025-06-24] MEDS: LEVALBUTEROL 1.25 MG/3 ML NEB NEB PRN (15:52)
[2025-06-24] MEDS: LIDOCAINE 5% OINT 30 GM TUBE TOP PRN (20:11)
--- NOTE | 2025-06-24 23:39 | Hospitalist Progress Note ---
Date of Service June 24, 2025 Assessment & Plan (1) COPD exacerbation: (2) Sleep apnea: Plan COPD exacerbation and acute hypercapnic respiratory failure: Continue cefepime as patient had recent antibiotic use in past 3 months. continue Corticosteroids. will complete antibiotics on Tuesday, may consider discharge tomorrow. Patient is improving Will monitor. Now on CPAP HS. Hypercapnic respiratory failure has improved. chronic respiratory failure with hypoxia: Supplemental oxygen per nasal cannula to maintain saturation greater than 90%. CAD, multiple vessel: Currently stable. Continue current medical management Dyslipidemia: Stable. Continue statin therapy Benign essential hypertension: Stable. Continue verapamil Admission and Anticipated Discharge Date Admission Date: June 21, 2025 Subjective Patient reports breathing better. Physical Exam Constitutional: WD/WN, vitals as above Eyes: PERRL, conjunctivae normal, anicteric sclerae ENMT: external ear and nose normal, oropharynx normal Neck: trachea midline, no thyromegaly Respiratory: normal respiratory effort Auscultation: + diminished lung sounds Cardiovascular: RRR, no murmur, no edema Gastrointestinal (Abdomen): normal bowel sounds, soft, nontender, no hepatosplenomegaly Musculoskeletal: no cyanosis or clubbing, extremities motor strength 5/5 Skin: no rashes, warm and dry Neurologic: PERRL, EOMI, accommodation nl, no face palsy, no dysarthria Psychiatric: A+Ox3, euthymic affect Lymphatic: no cervical or axillary lymphadenopathy Results & Data Results & Data Vital Signs (Past 12 Hours) Vital Signs Temp Pulse Pulse Resp BP BP Pulse Ox 06/24/25 22:23 36.7 C 80 20 155/77 H 98 06/24/25 19:56 06/24/25 15:52 70 20 95 06/24/25 15:21 36.6 C 82 17 146/74 H 98 O2 Del Method O2 Flow Rate 06/24/25 22:23 Nasal Cannula 2 06/24/25 19:56 Nasal Cannula 2 06/24/25 15:52 Nasal Cannula 2 06/24/25 15:21 Nasal Cannula 2 PG Care Time/CCT Total # of Minutes Spent Total Time Spent with Patient: Total time spent is greater than 50% in coordination of care (as documented) at patient's floor/unit and/or counseling patient: Coding Level of Care Code 24205 SUB INP/OBS CARE 2/35MIN Diagnoses COPD exacerbation J44.1 Sleep apnea G47.30
--- NOTE | 2025-06-25 06:10 | Electrocardiogram Report ---
Test Reason : Blood Pressure : */* mmHG Vent. Rate : 72 BPM Atrial Rate : 72 BPM P-R Int : 160 ms QRS Dur : 106 ms QT Int : 406 ms P-R-T Axes : 78 62 102 degrees QTcB Int : 444 ms Normal sinus rhythm Incomplete right bundle branch block Abnormal ECG When compared with ECG of 13-Mar-2025 08:52, No significant change Confirmed by Ashu Beck ([id number]) on 06/25/2025 6:09:58 AM Referred By: REFERRED SELF Confirmed By: Ashu Beck
[2025-06-25 07:18] LABS: Hematocrit (blood only) 29.5 % (37.0-47.0); Hemoglobin 9.7 g/dL (12.0-16.0); Mean Corpuscular Hemoglobin 30.5 pg (25.0-34.0); Mean Corpuscular Volume 92.8 fL (80.0-100.0); Platelet Count 218 K/uL (130-400); RDW Standard Deviation 45.7 fL (36.4-46.3); Red Blood Count 3.18 M/uL (4.20-5.40); White Blood Count 5.53 K/ul (4.8-10.8)
[2025-06-25 07:41] LABS: Anion Gap 8.0 (3-11); Blood Urea Nitrogen 26.0 mg/dl (6-23); Calcium 9.4 mg/dl (8.6-10.3); Carbon Dioxide 27.0 mmol/L (21-32); Chloride 107.0 mmol/L (98-107); Creatinine Clr Calc Pharmacy 57.5 ml/min; Glucose 93.0 mg/dl (70-99(Fasting)); Potassium 3.6 mmol/L (3.5-5.1); Sodium 142.0 mmol/L (136-145)
--- NOTE | 2025-06-25 21:12 | Hospitalist Progress Note ---
Date of Service June 25, 2025 Assessment & Plan (1) COPD exacerbation: (2) Sleep apnea: Plan COPD exacerbation and acute hypercapnic respiratory failure: Continue cefepime as patient had recent antibiotic use in past 3 months. continue Corticosteroids. will complete antibiotics on Tuesday: will give PM dose at 17:00 and then discharge her. Now on CPAP HS. Hypercapnic respiratory failure has improved. chronic respiratory failure with hypoxia: Supplemental oxygen per nasal cannula to maintain saturation greater than 90%. CAD, multiple vessel: Currently stable. Continue current medical management Dyslipidemia: Stable. Continue statin therapy Benign essential hypertension: Stable. Continue verapamil Admission and Anticipated Discharge Date Admission Date: June 21, 2025 Subjective Patient reports feeling much better today. Patient is close to her baseline. Physical Exam Constitutional: WD/WN, vitals as above Eyes: PERRL, conjunctivae normal, anicteric sclerae ENMT: external ear and nose normal, oropharynx normal Neck: trachea midline, no thyromegaly Respiratory: normal respiratory effort Auscultation: lungs clear to auscultation bilaterally Cardiovascular: RRR, no murmur, no edema Gastrointestinal (Abdomen): normal bowel sounds, soft, nontender, no hepatosplenomegaly Musculoskeletal: no cyanosis or clubbing, extremities motor strength 5/5 Skin: no rashes, warm and dry Neurologic: PERRL, EOMI, accommodation nl, no face palsy, no dysarthria Psychiatric: A+Ox3, euthymic affect Lymphatic: no cervical or axillary lymphadenopathy Results & Data Results & Data Vital Signs (Past 12 Hours) Vital Signs Temp Pulse Resp BP Pulse Ox O2 Del Method O2 Flow Rate 06/25/25 15:46 36.6 C 78 20 114/52 L 94 Room Air 06/25/25 11:30 82 16 99 Nasal Cannula 2 PG Care Time/CCT Total # of Minutes Spent Total Time Spent with Patient: Total time spent is greater than 50% in coordination of care (as documented) at patient's floor/unit and/or counseling patient: Coding Level of Care Code 20999 SUB INP/OBS CARE 2/35MIN Diagnoses COPD exacerbation J44.1 Sleep apnea G47.30
[2025-06-26 07:41] LABS: Hematocrit (blood only) 31.5 % (37.0-47.0); Hemoglobin 10.3 g/dL (12.0-16.0); Mean Corpuscular Hemoglobin 30.6 pg (25.0-34.0); Mean Corpuscular Volume 93.5 fL (80.0-100.0); Platelet Count 239 K/uL (130-400); RDW Standard Deviation 45.5 fL (36.4-46.3); Red Blood Count 3.37 M/uL (4.20-5.40); White Blood Count 5.78 K/ul (4.8-10.8)
[2025-06-26 07:57] VITALS: PULSE 79
[2025-06-26 08:07] LABS: Anion Gap 6 (3-11); Blood Urea Nitrogen 28 mg/dl (6-23); Calcium 9.4 mg/dl (8.6-10.3); Carbon Dioxide 31 mmol/L (21-32); Chloride 106 mmol/L (98-107); Creatinine Clr Calc Pharmacy 48.5 ml/min; Glucose 93 mg/dl (70-99(Fasting)); Potassium 4.4 mmol/L (3.5-5.1); Sodium 143 mmol/L (136-145)
--- NOTE | 2025-06-26 10:09 | Progress Note ---
Date of Service June 26, 2025 Assessment & Plan (1) COPD exacerbation: (2) Sleep apnea: Plan COPD exacerbation and acute hypercapnic respiratory failure: Continue cefepime as patient had recent antibiotic use in past 3 months. continue Corticosteroids. will complete antibiotics on Tuesday: will give PM dose at 17:00 and then discharge her. Now on CPAP HS. Hypercapnic respiratory failure has improved. 06/26 - saw patient and she's doing well - she will get her last dose of Cefepime at around 5PM; can d/c home without abx - will d/c with a medrol dose kings - she uses Beztri at home; which we will continue - cont her supplemental oxygen - already has a nebulizer with neb medications - cont with rescue inhaler - outpatient f/u with pulmonology chronic respiratory failure with hypoxia: Supplemental oxygen per nasal cannula to maintain saturation greater than 90%. CAD, multiple vessel: Currently stable. Continue current medical management Dyslipidemia: Stable. Continue statin therapy Benign essential hypertension: Stable. Continue verapamil Admission and Anticipated Discharge Date Admission Date: June 21, 2025 Subjective Patient is feeling well; eager to get home Denies any SOB (at baseline); no chest pain; no fevers/chills. currently on 2L of O2 which she uses at home Review of Systems Constitutional: no fever Eyes: no blind spots Ear, Nose, Mouth, Throat: no ear pain Respiratory: + cough Cardiovascular: no chest pain Gastrointestinal: no abdominal pain Genitourinary: no dysuria Musculoskeletal: no back pain Integumentary: no acne Neurologic: + unsteadiness and + generalized weaknes s Psychiatric: no behavioral changes Endocrine: + fatigue Hematologic / Lymphatic: no easy bleeding Allergy / Immunological: no GI upset with certain foods Physical Exam Physical Exam: VITALS: Reviewed. WEIGHT/BMI reviewed. GEN: Healthy appearing, well-developed, NAD. PSYCH: Good Judgment. AOx3. Normal memory, mood, and affect. HEENT -Head: NC/AT; -Eyes: PERRL, EOMI. No discharge or redn ess; -Ears: External ears are normal. Normal TMs. -Nose: Normal nares. -Mouth and throat: MMM. Normal gums, muc boni, palate,. Good dentition. NECK: Supple, with no masses. CV: RRR, no m/r/g. LUNGS: CTAB, no w/r/c. ABD: Soft, NT/ND, NBS, no masses or organomegaly. : N/A SKIN: Warm, well perfused. No skin rashes or abnormal lesions. MSK: No deformities, Normal gait. EXT: No clubbing, cyanosis, or edema. NEURO: Ambulating with no limitations. Normal muscle strength and tone. No focal deficits. Results & Data Vital Signs (Past 12 Hours) Vital Signs Temp Pulse Resp BP Pulse Ox O2 Del Method O2 Flow Rate 06/26/25 07:56 36.3 C L 79 14 147/76 H 99 Nasal Cannula 2 06/25/25 22:49 36.9 C 76 16 137/75 96 Nasal Cannula 2 Laboratory Results Laboratory Results WBC 5.78 K/ul (4.8-10.8) 06/26/25 07:14 RBC 3.37 M/uL (4.20-5.40) L 06/26/25 07:14 Hgb 10.3 g/dL (12.0-16.0) L 06/26/25 07:14 Hct 31.5 % (37.0-47.0) L 06/26/25 07:14 MCV 93.5 fL (80.0-100.0) 06/26/25 07:14 MCH 30.6 pg (25.0-34.0) 06/26/25 07:14 MCHC 32.7 g/dL (32.0-36.0) 06/26/25 07:14 RDW Std Deviation 45.5 fL (36.4-46.3) 06/26/25 07:14 RDW Coeff of Elicia 13.4 % (11.5-14.5) 06/26/25 07:14 Plt Count 239 K/uL (130-400) 06/26/25 07:14 MPV 9.3 fL (9.4-12.4) L 06/26/25 07:14 Immature Gran % (Auto) 0.4 % 06/21/25 15:25 Neut % (Auto) 68.0 % 06/21/25 15: Lymph % (Auto) 18.7 % 06/21/25 15: Lawrence % (Auto) 8.0 % 06/21/25 15: Eos % (Auto) 4.5 % 06/21/25 15:25 Baso % (Auto) 0.4 % 06/21/25 15:25 Neut # (Auto) 3.49 K/uL (1.40-6.50) 06/21/25 15: Lymph # (Auto) 0.96 K/uL (1.20-3.40) L 06/21/25 15:25 Lawrence # (Auto) 0.41 K/uL (0.11-0.59) 06/21/25 15:25 Eos # (Auto) 0.23 K/uL (0.00-0.50) 06/21/25 15:25 Baso # (Auto) 0.02 K/uL (0.00-0.20) 06/21/25 15: Immature Gran # (Auto) 0.02 K/uL (0.01-0.20) 06/21/25 15: Absolute Nucleated RBC 0.02 K/uL (0.00-0.12) 06/26/25 07:14 Nucleated RBC % (auto) 0.3 % 06/26/25 07:14 VBG pH 7.45 (7.36-7.41) H 06/24/25 06:01 VBG pCO2 41 mmHg (38-50) 06/24/25 06:01 VBG pO2 68 mmHg 06/24/25 06:01 VBG HCO3 29 mmol/L 06/24/25 06:01 VBG O2 Saturation 95.4 % 06/24/25 06:01 VBG Base Excess 4.1 mEq/L 06/24/25 06:01 Sodium 143 mmol/L (136-145) 06/26/25 07:14 Potassium 4.4 mmol/L (3.5-5.1) D 06/26/25 07:14 Chloride 106 mmol/L (98-107) 06/26/25 07:14 Carbon Dioxide 31 mmol/L (21-32) 06/26/25 07:14 Anion Gap 6 (3-11) 06/26/25 07:14 BUN 28 mg/dl (6-23) H 06/26/25 07:14 Creatinine 1.21 mg/dl (0.6-1.2) H 06/26/25 07:14 Est Cr Clr Drug Dosing 48.5 ml/min 06/26/25 07:14 eGFR 49.74 06/26/25 07:14 BUN/Creatinine Ratio 23.1 (10-20) H 06/26/25 07:14 Glucose 93 mg/dl (70-99(Fasting)) 06/26/25 07:14 Calcium 9.4 mg/dl (8.6-10.3) 06/26/25 07:14 Magnesium 2.2 mg/dl (1.7-2.4) 06/21/25 15:25 Total Bilirubin 0.6 mg/dl (0.2-1.0) 06/21/25 15:25 AST 22 U/L (13-39) 06/21/25 15:25 ALT 14 U/L (7-52) 06/21/25 15:25 Alkaline Phosphatase 59 U/L (34-104) 06/21/25 15:25 C-Reactive Protein < 0.50 mg/dl (0-0.5) 06/26/25 07:14 Total Protein 7.2 gm/dl (6.0-8.3) 06/21/25 15:25 Albumin 4.4 gm/dl (3.4-5.0) 06/21/25 15:25 Globulin 2.8 gm/dl (2.5-4.0) 06/21/25 15:25 Albumin/Globulin Ratio 1.6 (0.9-2) 06/21/25 15:25 Procalcitonin < 0.02 ng/ml (0-0.5) 06/21/25 15:25 Adenovirus (PCR) Not Detected (NotDetected) 06/21/25 15:24 B. pertussis DNA (PCR) Not Detected (NotDetected) 06/21/25 15:24 B.parapertussis DNA PCR Not Detected (NotDetected) 06/21/25 15:24 C. pneumoniae DNA (PCR) Not Detected (NotDetected) 06/21/25 15:24 Coronavirus OC43 (PCR) Not Detected (NotDetected) 06/21/25 15:24 Coronavirus HKU1 (PCR) Not Detected (NotDetected) 06/21/25 15:24 Coronavirus 229E (PCR) Not Detected (NotDetected) 06/21/25 15:24 SARS-CoV-2 (PCR) Not Detected (NotDetected) 06/21/25 15:24 Coronavirus NL63 (PCR) Not Detected (NotDetected) 06/21/25 15:24 Human Metapneumovir PCR Not Detected (NotDetected) 06/21/25 15:24 Influenza Type A (PCR) Not Detected (NotDetected) 06/21/25 15:24 Influenza Type B (PCR) Not Detected (NotDetected) 06/21/25 15:24 M. pneumoniae (PCR) Not Detected (NotDetected) 06/21/25 15:24 Parainfluenza 1 (PCR) Not Detected (NotDetected) 06/21/25 15:24 Parainfluenza 2 (PCR) Not Detected (NotDetected) 06/21/25 15:24 Parainfluenza 3 (PCR) Not Detected (NotDetected) 06/21/25 15:24 Parainfluenza 4 (PCR) Not Detected (NotDetected) 06/21/25 15:24 RSV (PCR) Not Detected (NotDetected) 06/21/25 15:24 Entero/Rhino (PCR) Not Detected (NotDetected) 06/21/25 15:24 Impressions Chest X-Ray 06/21/25 15:13 Clinical History: Dyspnea Technique: PA and lateral views of the chest were obtained Comparison is made to the prior examination dated 03/17/2025 Findings: There are no confluent pulmonary infiltrates. The heart size is within normal limits. No pleural effusion or pneumothorax is seen. There is no definite pulmonary nodule. Sternal wires are present. There are vertebroplasty changes in the lower thoracic spine Impression: No active disease Electronically signed by Shahram Mary 06-21-2025 5:20 PM PG Care Time/CCT Total # of Minutes Spent Total Time Spent with Patient: Total time spent is greater than 50% in coordination of care (as documented) at patient's floor/unit and/or counseling patient: Coding Level of Care Code 85091 SUB INP/OBS CARE 2/35MIN Diagnoses COPD exacerbation J44.1 Sleep apnea G47.30
--- NOTE | 2025-06-26 10:46 | Discharge Summary ---
Discharge Summary Date of Service June 26, 2025 Principal Dx & Hospital Course #1 = Principal Diagnosis (1) COPD exacerbation: (2) Sleep apnea: Plan COPD exacerbation and acute hypercapnic respiratory failure: Continue cefepime as patient had recent antibiotic use in past 3 months. continue Corticosteroids. will complete antibiotics on Tuesday: will give PM dose at 17:00 and then discharge her. Now on CPAP HS. Hypercapnic respiratory failure has improved. 06/26 - saw patient and she's doing well - she will get her last dose of Cefepime at around 5PM; can d/c home without abx - will d/c with a medrol dose ezequiel - she uses Beztri at home; which we will continue - cont her supplemental oxygen - already has a nebulizer with neb medications - cont with rescue inhaler - outpatient f/u with pulmonology chronic respiratory failure with hypoxia: Supplemental oxygen per nasal cannula to maintain saturation greater than 90%. CAD, multiple vessel: Currently stable. Continue current medical management Dyslipidemia: Stable. Continue statin therapy Benign essential hypertension: Stable. Continue verapamil Admission HPI Per Admitting Provider 65-year-old female with COPD and chronic respiratory failure on 2 L of oxygen per nasal cannula at home. Fpr the past couple of days patient has reported feeling weaker, difficulty gettin out of bed. She has weakness and SOB. Patient with a productive cough and green sputum. She denies hemoptysis. She has no pleuritic pain. She was seen in the ED x ray was negative for pneumonia. HOwever patient was found to have CO2 retention on VBG. Discharge Exam VITALS: Reviewed. WEIGHT/BMI reviewed. GEN: Healthy appearing, well-developed, NAD. PSYCH: Good Judgment. AOx3. Normal memory, mood, and affect. HEENT -Head: NC/AT; -Eyes: PERRL, EOMI. No discharge or redness; -Ears: External ears are normal. Normal TMs. -Nose: Normal nares. -Mouth and throat: MMM. Normal gums, mucosa, palate,. Good dentition. NECK: Supple, with no masses. CV: RRR, no m/r/g. LUNGS: CTAB, no w/r/c. ABD: Soft, NT/ND, NBS, no masses or organomegaly. : N/A SKIN: Warm, well perfused. No skin rashes or abnormal lesions. MSK: No deformities, Normal gait. EXT: No clubbing, cyanosis, or edema. NEURO: Ambulating with no limitations. Normal muscle strength and tone. No focal deficits. Discharge Plan Discharge Items Patient Disposition: Home - Self-Care Reason For Visit: ACUTE RESPIRATORY ACIDOSIS Discharge Diagnosis: Acute COPD Exacerbation Acute Hypoxemic Respiratory Failure Acute Respiratory Acidosis Condition on Discharge: Serious Activity: Resume your previous activity Non-emergency contact: Primary Care Provider Call non-emergency contact if: you have any medication questions, your symptoms worsen and you have a fever Follow-up/Referrals: Kailee Lam PA-C [Primary Care Provider] - Diet: Regular Addtl Attending Provider Instructions: Please follow-up with your primary care physician. Cont your medrol dose pack (tapering steroid) Pending Studies at Discharge: No Stand-Alone Forms: [employer], Smoking Cessation Medications and DC Order Prescriptions: New methylprednisolone [Medrol (Ezequiel)] 4 mg tablets,dose pack 4 mg PO QID Qty: 21 0RF Continued sucralfate [Carafate] 1 gram tablet 1 g PO ACHS PRN (Reason: Abdominal Pain) Qty: 360 0RF Rx Instructions: TAKE 1 TABLET BY MOUTH BEFORE MEAL(S) AND AT BEDTIME NEEDED FOR ABDOMINAL PAIN ranolazine 500 mg tablet extended release 12 hr 500 mg PO BID Qty: 180 3RF atorvastatin [Lipitor] 80 mg tablet 80 mg PO QPM tramadol 50 mg tablet 50 mg PO DAILY PRN (Reason: Pain) magnesium oxide 400 mg magnesium tablet 600 mg PO HS nitroglycerin 0.4 mg tablet, sublingual 0.4 mg sublingual Q5M PRN (Reason: Chest Pain) Rx Instructions: do not exceed 3 doses per episode clopidogrel [Plavix] 75 mg tablet 75 mg PO QAM (DME) Auto Titrating CPAP Misc See Rx Instructions .ROUTE .MEDSUPPLY Qty: 1 0RF Rx Instructions: use qhs and with naps. CPAP range 8-15 cmH2O. 2L NC bled into system. ADRIÁN 99. (DME) Oxygen Home Liters Per Minute See Rx Instructions .MEDSUPPLY Qty: 1 0RF Rx Instructions: Portable oxygen concentrator. Oxygen 2 L/min via nasal cannula. 28/02 gabapentin [Neurontin] 300 mg capsule 300 mg PO BID multivitamin [One Daily Multivitamin] Tablet 1 tab PO QAM cyanocobalamin (vitamin B-12) [Vitamin B-12] 1,000 mcg Tablet 1,000 mcg PO QAM aspirin [Rula Low Dose Aspirin] 81 mg Tablet,Delayed Release (Dr/Ec) 81 mg PO HS coenzyme Q10 [Co Q-10] 100 mg Capsule 200 mg PO HS omega 2-aac-foe-fish oil [Fish Oil] 1,000 mg (120 mg-180 mg) Capsule 1 cap PO BID melatonin 10 mg Tablet 10 mg PO HS cholecalciferol (vitamin D3) [Vitamin D3] 25 mcg (1,000 unit) capsule 2,000 unit PO QAM buspirone 10 mg Tablet 10 mg PO BID bupropion HCl [Wellbutrin XL] 150 mg tablet extended release 24 hr 150 mg PO QAM lamotrigine [Lamictal] 200 mg tablet 200 mg PO HS lamotrigine [Lamictal] 100 mg tablet 150 mg PO QAM ibandronate 150 mg tablet 150 mg PO MONTHLY Rx Instructions: takes end of the month quetiapine [Seroquel] 200 mg Tablet 200 mg PO HS Qty: 30 0RF acetaminophen 650 mg Tablet Extended Release 1,300 mg PO Q8H ascorbic acid (vitamin C) [Vitamin C] 500 mg Tablet 500 mg PO QAM duloxetine 30 mg capsule,delayed release(DR/EC) 30 mg PO QAM diclofenac sodium 1 % Gel 2 g TOPICAL QID Rx Instructions: apply to single elbow, wrist or hand; for hand includes palm/fingers/back of hand Hyper-Perez 3.5 % Solution For Nebulization 4 ml INHALATION DIRECTED PRN (Reason: Shortness Of Breath/Mucus Production) Rx Instructions: Use as needed for shortness of breath/mucus production lidocaine 5 % Ointment 1 applic TOPICAL BID PRN (Reason: Pain) albuterol sulfate [Ventolin HFA] 90 mcg/actuation HFA aerosol inhaler 2 puff INHALATION Q4H PRN (Reason: Shortness Of Breath) Nurtec ODT 75 mg tablet,disintegrating 75 mg PO DAILY PRN (Reason: Migraines) Rx Instructions: 75 mg PO ONCE A DAY PRN. MAX DOSE 1 PER 24 HOURS polyethylene glycol 3350 [Miralax] 17 gram/dose powder 17 g PO DAILY PRN (Reason: Constipation) verapamil 240 mg capsule,ext rel. pellets 24 hr 240 mg PO QAM pantoprazole [Protonix] 40 mg tablet,delayed release (DR/EC) 40 mg PO .QD Discharge Orders: Discharge Order (Routine); Ordered 06/26/25 Ordered By: Tameka Delong/Other Patient Handouts: COPD Controlled Breathing Dc, COPD Meds Admission Data Admit Date/Time: 06/21/25 17:41 Attending Provider: Tameka Villareal Admit Provider: Rakan Hoyos Primary Care Provider: Kailee Lam Other Providers: [facility] Stay Data Consultations 06/21/25 17:15 ED Decision to Admit Stat Pending Results Patient Have Any Pending Studies at Discharge: No Discharge Instructions Given to Patient (Per Discharging Provider) Please follow-up with your primary care physician. Cont your medrol dose pack (tapering steroid) Home Health Attestation I certify that this patient is under my care and that I, or a physicians assistant editor working with me, had a face to-face encounter that meets the home health [id number] encounter requirements with this patient. The encounter with the patient was in whole, or in part, for the following medical condition, which is the primary reason for home health care (list medical condition): I certify that, based on my findings, the following services are medically necessary home health services: My clinical findings support the need for the above services because: Further, I certify that my clinical findings support that this patient is homebound (i.e. absences from home require considerable and taxing effort and are for medical reasons or adventism services or infrequently or of short duration when for other reasons) because: Certification for Home Health Services: Based on the above findings, I certify that this patient is confined to the home and needs intermittent longterm care, physical therapy and/or speech therapy or continues to need occupational therapy. The patient is under my care, and I have initiated the establishment of the plan of care. This patient will be followed by a physician who will periodically review the plan of care. Total Time Total Time Spent Total Time Spent (In Minutes): 45 Coding Level of Care Code 93679 INP/OBS DISCH >30 MIN Diagnoses COPD exacerbation J44.1 Sleep apnea G47.30
[2025-06-26 15:27] VITALS: RESP 18; TEMP 98.2; O2SAT 98
[2025-06-26 17:47] VITALS: BP 114/52
== END 2025-06-26 18:30 | disposition home or self-care (01) | DRG 190 ==
LOC: SUATTDRO → ED 15:05 → SUATTDRO 17:41 → 4W 17:41 → 3N 06-24 15:46